=== PATIENT | female | born 1940 | race Caucasian/White ===

== ENCOUNTER 2024-07-07 16:31 | Inpatient (IN) | payer MEDICARE, SELFPAY ==
--- NOTE | ~2024-07-07 | XR_ITS ---
EXAMINATION: XR chest 1V portable Exam Date/Time: 07/12/2024 10:55 SALES OFFICER HISTORY: fluid volume overload Comparison: 07/08/2024. RESULT: Lines, tubes, and devices: None. Lungs and pleura: Mild diffuse reticular opacities. Cardiomediastinal silhouette: Stable. Aortic ectasia. Other: No acute osseous or upper abdominal finding. IMPRESSION: Mild interstitial edema versus senescent change. Reviewed, dictated and finalized at location K. S OFFICER
--- NOTE | ~2024-07-07 | XR_ITS ---
EXAMINATION: XR chest 1V portable DATE: 07/13/2024 10:39 INDICATION: Pneumonia TECHNIQUE: frontal view of the chest was obtained. COMPARISON: Chest radiograph dated 07/12/2024 FINDINGS: The lungs are clear with no focal airspace opacities, pulmonary edema, pleural effusion or pneumothor ax. The cardiomediastinal silhouette is normal. IMPRESSION: 1. No acute cardiopulmonary disease. Reviewed, dictated and finalized at location B. R ROOM MANAGER
--- NOTE | ~2024-07-07 | XR_ITS ---
Left Shoulder Technique: AP and scapular Y views were obtained. Clinical History: Pain Findings: No fracture or dislocation is seen. Osseous alignment is anatomic. Large inferomedial humer al head osteophyte present, with joint space narrowing. AC joint intact. Soft tissues are unremarkabl e. Impression: Advanced glenohumeral joint degenerative change. Reviewed, dictated and finalized at location . SPACE MECHANIC Impression: Advanced glenohumeral joint degenerative change.
--- NOTE | ~2024-07-07 | XR_ITS ---
EXAMINATION: XR chest 1V portable DATE: 07/08/2024 04:51 INDICATION: Weakness TECHNIQUE: frontal view of the chest was obtained. COMPARISON: None FINDINGS: Eventration along the medial right hemidiaphragm. No airspace opacities, pulmonary edema, pleural eff usion or pneumothorax. The cardiomediastinal silhouette is normal. IMPRESSION: 1. No acute cardiopulmonary disease. Reviewed, dictated and finalized at location A. MOLD COATER
--- NOTE | 2024-07-07 16:34 | ECG_ITS ---
Test Date: 2024-07-07 17:04:05 Measurements Intervals [place] Rate: 101 P: 0 [place]: 0 QRS: 17 QRSD: 87 T: 62 QT: 301 QTc: 391 Interpretive Statements ATRIAL FIBRILLATION WITH RAPID VENTRICULAR RESPONSE POSSIBLE ANTERIOR MYOCARDIAL INFARCTION , PROBABLY OLD [30 ms Q WAVE IN V3/V4, OR R < 0.2 mV IN V4] ABNORMAL ECG Electronically Signed On 07-07-2024 17:29:27 MEAT SMOKER by Bert Triplett M.D.
[2024-07-07 17:24] VITALS: BP 163/96; PULSE 80; RESP 18; TEMP 36.6; O2SAT 97
[2024-07-08] VITALS (17 sets, daily range): BP systolic 124–163; BP diastolic 81–103; PULSE 80–117; RESP 13–20; TEMP 36.2–36.7; O2SAT 94–100; BMI 28.4
[2024-07-08 04:00] LABS: Basophils Absolute Auto 0.1 K/mm3 (0.0-0.1); Eosinophils Absolute Auto 0.2 K/mm3 (0-0.3); Eosinophils Percent Auto 2.3 % (0-4.4); Hematocrit 42.9 % (37.0-47.0); Hemoglobin 13.5 g/dL (12.0-15.0); Immature Granulocyte Absolute 0.02 K/mm3 (0.00-0.031); Immature Granulocyte Percent A 0.3 % (0-0.5); Lymphocytes Percent Auto 25.9 % (18.3-44.2); Mean Corpuscular HGB Conc 31.5 g/dl (32-36); Mean Corpuscular Volume 95.3 fl (80-100); Mean Platelet Volume 10.6 fl (7.4-10.4); Monocytes Percent Auto 14.7 % (2.6-8.5); Neutrophils Absolute Auto 3.9 K/mm3 (1.3-6.7); Neutrophils Percent Auto 55.8 % (45.5-73.1); Platelet Count Result 171 k/mm3 (150-375); Red Cell Distribution Width 13.4 % (11.5-14.5)
[2024-07-08 04:11] LABS: Alanine Aminotransferase 17 U/L (6-35); Albumin Level 3.9 g/dL (3.5-5.1); Alkaline Phosphatase 110 U/L (38-126); Anion Gap 4 mmol/L (4-12); Aspartate Amino Transferase 23 U/L (14-36); Bilirubin,Total 1.1 mg/dL (0.2-1.3); Blood Urea Nitrogen 16 mg/dL (7-17); Calcium 8.7 mg/dL (8.4-10.2); Carbon Dioxide 27 mmol/L (22-30); Chloride 107 mmol/L (98-107); Estimated CRCL calculation 54 ml/min; Estimated Glomerular Filt Rate > 60; Glucose 115 mg/dL (65-110); Lipase 87 U/L (23-300); Magnesium 2.2 mg/dL (1.6-2.3); Potassium 3.4 mmol/L (3.4-5.0); Prothrombin Time 13.2 Seconds (11.1-14.7); Sodium 138 mmol/L (137-145)
[2024-07-08 04:22] LABS: NT Pro B Type Natriuretic Pept 1440 pg/mL (19.9-100); Troponin I < 0.012 ng/mL (0.000-0.034)
[2024-07-08 04:36] LABS: Influenza A QL RT-PCR Negative (Negative); Influenza B QL RT-PCR Negative (Negative); RSV RNA, RT-PCR Negative (Negative); SARS-CoV-2 RNA PCR Negative (Negative)
[2024-07-08 05:42] LABS: Add Urine Microscopic? YES; Appearance Urine Cloudy (Clear); Bacteria Urine None Seen /hpf; Bilirubin Urine Negative (Negative); Blood Urine Negative (Negative); Color Urine Yellow (Yellow); Glucose Urine UA Negative (Negative); Ketones Urine Negative (Negative); Leukocyte Esterase Ur 1+ LEU/UL (Negative); Need Manual Microscopic Reviewed; Nitrate Urine Negative (Negative); Non Pathogenic Casts 0-2; Protein Urine Negative (Negative); RBC Urine 0-2 /hpf (0-2); Specific Grav Ur 1.018 (1.001-1.035); Squamous Epithelial Cell Urine Few /hpf (Few); WBC Urine 0-5 /hpf (0-3)
--- NOTE | 2024-07-08 05:42 | ED_ITS ---
HPI - General Adult General Chief complaint: Arrhythmia/Palpitations Stated complaint: RSV, UTI, new onset afib Time Seen by Provider: 07/08/24 03:26 History of Present Illness HPI narrative: The patient 83-year-old female who presents emergency department with chief complaint of atrial fibrillation. Patient recently did a car ride for many hours and went into her primary doctor's office today and was diagnosed with RSV and may have a urinary tract infection. They did an EKG and noticed patient was in atrial fibrillation the patient has no prior history of AFib the patient denies chest pain denies shortness of breath they do report that she has had some increasing peripheral edema with no prior history of congestive heart failure Related Data Allergies Allergy/AdvReac Type Severity Reaction Status Date / Time No Known Allergies Allergy Verified 07/08/24 03:24 Review of Systems 2 Review of Systems: A 10 system review of systems was completed on the patient and is negative except for what is stated in the HPI. Nursing and ancillary documentation was reviewed. Exam 2 Narrative: GENERAL: Well-appearing, well-nourished, and in no acute distress. HEAD: Normocephalic, atraumatic. EYES: PERRLA and EOMI. ENT: Nares clear, no rhinorrhea or epistaxis. Mucous membranes moist. NECK: Supple. CHEST: Clear to auscultation. No respiratory distress. HEART: Irregular rate and rhythm. No murmur heard. Normal peripheral pulses. ABDOMEN: Soft, nontender, nondistended, normal active bowel sounds. EXTREMITIES: Normal range of motion. No edema. SKIN: Warm, dry, no rash. NEURO: No focal deficits. Alert and oriented x3. PSYCH: Normal mood and affect. Course Vital Signs Vital signs: Vital Signs Temperature 36.6 C 07/07/24 17:24 Pulse Rate 80 07/07/24 17:24 Respiratory Rate 18 07/07/24 17:24 Blood Pressure 163/96 H 07/07/24 17:24 Pulse Oximetry 97 07/07/24 17:24 Oxygen Delivery Room Air 07/07/24 17:24 Temperature 36.2 C L 07/08/24 02:40 Pulse Rate 97 07/08/24 03:15 Respiratory Rate 13 07/08/24 03:15 Blood Pressure 163/103 H 07/08/24 03:15 Pulse Oximetry 100 07/08/24 03:15 Oxygen Delivery Room Air 12/28/24 03:15 Medical Decision Making [facility] Narrative Medical decision making narrative: Differential diagnosis includes new onset AFib, CHF, upper respiratory infection, UTI, electrolyte abnormality Laboratory studies were obtained on the patient shows CBC with a white count of 7.0 hemoglobin was 13.5 BNP was slightly elevated at 14 40 troponin was negative urinalysis only showed 1+ leukocyte esterase COVID flu and RSV were negative here EKG showed atrial fibrillation with a rate of 101 Vital Signs Vital Signs: Vital Signs Temperature 36.6 C 07/07/24 17:24 Pulse Rate 80 07/07/24 17:24 Respiratory Rate 18 07/07/24 17:24 Blood Pressure 163/96 H 07/07/24 17:24 Pulse Oximetry 97 07/07/24 17:24 Oxygen Delivery Room Air 07/07/24 17:24 Temperature 36.2 C L 07/08/24 02:40 Pulse Rate 97 07/08/24 03:15 Respiratory Rate 13 07/08/24 03:15 Blood Pressure 163/103 H 07/08/24 03:15 Pulse Oximetry 100 07/08/24 03:15 Oxygen Delivery Room Air 07/08/24 03:15 Lab Data 07/08/24 03:54 07/08/24 03:54 Labs: Lab Results 07/08/24 07/08/24 Range/Units 03:54 05:06 WBC 7.0 (4.5-10.0) K/mm3 RBC 4.50 (4.2-5.4) M/mm3 Hgb 13.5 (12.0-15.0) g/dL Hct 42.9 (37.0-47.0) % MCV 95.3 (80-100) fl MCH 30.0 (26-34) pg MCHC 31.5 L (32-36) g/dl RDW 13.4 (11.5-14.5) % Plt Count 171 (150-375) k/mm3 MPV 10.6 H (7.4-10.4) fl Immature Gran % (Auto) 0.3 (0-0.5) % Neut % (Auto) 55.8 (45.5-73.1) % Lymph % (Auto) 25.9 (18.3-44.2) % [place] % (Auto) 14.7 H (2.6-8.5) % Eos % (Auto) 2.3 (0-4.4) % Baso % (Auto) 1.0 (0.2-1.2) % Lymph # (Auto) 1.80 (0.9-3.2) K/mm3 [place] # (Auto) 1.0 H (0.1-0.6) K/mm3 Eos # (Auto) 0.2 (0-0.3) K/mm3 Baso # (Auto) 0.1 (0.0-0.1) K/mm3 Abs Immat Gran (auto) 0.02 (0.00-0.031) K/mm3 Absolute Neuts (auto) 3.9 (1.3-6.7) K/mm3 Absolute Nucleated RBC 0.000 (0.0-0.012) K/mm3 Nucleated RBC % 0.0 (0.0-0.2) % PT 13.2 (11.1-14.7) Seconds INR 1.0 APTT 21.0 L (22.3-36.8) Seconds Sodium 138 (137-145) mmol/L Potassium 3.4 (3.4-5.0) mmol/L Chloride 107 (98-107) mmol/L Carbon Dioxide 27 (22-30) mmol/L Anion Gap 4 (4-12) mmol/L BUN 16 (7-17) mg/dL Creatinine 0.80 (0.7-1.0) mg/dL Estim Creat Clear Calc 54 ml/min Estimated GFR > 60 (59 - ) Glucose 115 H (65-110) mg/dL Lactic Acid 2.0 (0.7-2.0) mmol/L Calcium 8.7 (8.4-10.2) mg/dL Magnesium 2.2 (1.6-2.3) mg/dL Total Bilirubin 1.1 (0.2-1.3) mg/dL AST 23 (14-36) U/L ALT 17 (6-35) U/L Alkaline Phosphatase 110 (38-126) U/L Troponin I < 0.012 (0.000-0.034) ng/mL NT-Pro-B Natriuret Pep 1440 H (19.9-100) pg/mL Total Protein 6.0 L (6.3-8.2) g/dL Albumin 3.9 (3.5-5.1) g/dL Lipase 87 (23-300) U/L Procalcitonin 0.0 ng/mL Urine Color Yellow (Yellow) Urine Appearance Cloudy H (Clear) Urine pH 6.0 (5.0-9.0) Ur Specific [place] 1.018 (1.001-1.035) Urine Protein Negative (Negative) mg/dL Urine Glucose (UA) Negative (Negative) mg/dL Urine Ketones Negative (Negative) mg/dL Ur Blood (Man) Negative (Negative) Urine Nitrate Negative (Negative) Urine Bilirubin Negative (Negative) Urine Urobilinogen 1.0 (<2.0) mg/dL Add Ur Microanalysis Reviewed Leukocyte Esterase Rfl 1+ H (Negative) HEIDY/UL Urine RBC 0-2 (0-2) /hpf Urine WBC 0-5 (0-3) /hpf Ur Squamous Epith Cells Few (Few) /hpf Urine Bacteria None seen /hpf Urine Casts 0-2 Influenza A (RT-PCR) Negative (Negative) Influenza B (RT-PCR) Negative (Negative) RSV (RT-PCR) Negative (Negative) SARS-CoV-2 RNA (RT-PCR) Negative (Negative) Discharge Plan Discharge Clinical Impression: Atrial fibrillation Patient Disposition: Still a Patient Condition: Stable Patient Language: Frisian Follow-up/Referrals: Dana,MD [place] [Primary Care Provider] - Time of Disposition: 06:33
--- NOTE | 2024-07-08 06:27 | ECG_ITS ---
Test Date: 2024-07-08 06:29:28 Measurements Intervals [place] Rate: 107 P: 0 [place]: 0 QRS: 20 QRSD: 85 T: 70 QT: 386 QTc: 515 Interpretive Statements ATRIAL FIBRILLATION WITH RAPID VENTRICULAR RESPONSE NONSPECIFIC ST & T-WAVE ABNORMALITY ABNORMAL RHYTHM ECG Compared to ECG 07/07/2024 17:04:05 T-wave abnormality now present Myocardial infarct finding no longer present Electronically Signed On 07-08-2024 08:32:25 GRAVEL ROOFER by Bert Triplett M.D.
[2024-07-08 06:52] LABS: Troponin I < 0.012 ng/mL (0.000-0.034)
[2024-07-08] MEDS: dilTIAZem 100 MG/100 ML 100 MG/100 ML BAG IV CONT ×2 (07:50→22:08)
--- NOTE | 2024-07-08 07:57 | PC.NURSE ---
breakfast tray ordered by this RN
--- NOTE | 2024-07-08 08:54 | P.CONCA_ITS ---
Assessment and Plan Assessment and plan (1) Hypertension: Code(s): I10 - Essential (primary) hypertension Status: Acute (2) Systolic murmur at cardiac apex: Code(s): R01.1 - Cardiac murmur, unspecified Status: Acute Plan Recommend Start drip of calcium channel keron diltiazem IV 5 mg per hour drip. If heart rate is less than 50 beats per minute or systolic blood pressure less than 90 mmHg Supplement magnesium to keep magnesium-2.0 or potassium-4.0 unless otherwise contraindicated Recommend anticoagulation with Lovenox full dose. Long-term patient likely will need anticoagulation with NOAC because of CHADS2 score is at least 4 in a patient at this hypertension symptoms of systolic congestive heart failure on examination and by elevated proBNP and patient who is a woman who is older than 75 In addition patient appears to be hyperglycemic that may be additional left risk factor such as diabetes me present If patient does not convert to sinus rhythm transesophageal ECHO with synchronized cardioversion to be done early next week may be beneficial. Adding under medication and doing a transesophageal echo of synchronized cardioversion as outpatient in the future may be an option too Patient will need at least 2 in patient hospital days of stay from cardiology standpoint History of Present Illness History of Present Illness Consult date/time: 07/08/24 08:54 Reason For Visit: Atrial fibrillation, new onset Narrative: Patient is 83-year-old female who was seen by her primary care physician yesterday. Due to worsening shortness of breath cost and fatigue she was sent to emergency room of [facility] for further evaluation. She was confirmed to have atrial fibrillation initially in the primary care physician's office and again he has in the emergency room. Emergency room attending consulted cardiology team for 4 management of patient's atrial fibrillation increased shortness of breath in the presence of of abnormal labs such as elevated proBNP Review of Systems 2 Review of Systems: Patient apparently being fatigued and short of breath for several days and was concerned about that. She expressed symptoms to her physician. She specifically denied focal weakness difficulty or pain swallowing denied any symptoms of CVA or stroke. She denies any chest pain. She notice what her breathing change in his worse comparing to her usual condition in addition she was having recurrent cough it had decreased ability to perform activities of daily living. She could not really tell how much swelling in her legs she recently had a comparing to time in the past Of a 12 review of systems unremarkable PMFSH Comments Patient specifically denied having history of coronary artery disease CVA congestive heart failure cardiomegaly documented. She apparently had remote surgery and thinks she had an echo but does not remember about to be any way abnormal. Meds Home Medications and Allergies Allergies Allergy/AdvReac Type Severity Reaction Status Date / Time No Known Allergies Allergy Verified 07/08/24 03:24 Vital Signs Vital Signs - 24 hr 07/07/24 17:24 07/08/24 02:40 07/08/24 03:15 Temperature 36.6 C 36.2 C L Pulse Rate 80 88 87 Respiratory Rate 18 20 Blood Pressure 163/96 H 149/95 H Pulse Oximetry 97 94 Oxygen Delivery Room Air 07/08/24 03:15 07/08/24 03:15 07/08/24 07:50 Temperature Pulse Rate 97 103 H Respiratory Rate 13 Blood Pressure 163/103 H 140/92 H Pulse Oximetry 100 100 Oxygen Delivery Room Air Room Air 07/08/24 07:52 Temperature Pulse Rate 90 Respiratory Rate 14 Blood Pressure 140/92 H Pulse Oximetry 95 Oxygen Delivery Exam 2 Narrative: Eyes no scleral icterus or edema ENT mild mucosa moist and midline patient missing multiple teeth. She has several crowns. No obvious acute signs of gingivitis. Neck no tracheal deviation no stridor no obvious carotid bruit no significant JVD prominence on patient seen when she is lying at about 30 degree elevation. Mildly decreased breath sounds at bases but no significant wheezing no rales Heart exam irregularly irregular rhythm mild systolic and diastolic murmurs present PMI appears slightly displaced to the left Abdomen soft nondistended nontender. Extremities is mild pretibial edema present bilaterally. Lymphatics no cervical or supraclavicular adenopathy on palpation. Chest wall no obvious scar which just seeing patient does not have a pacemaker defibrillator. Four alert and oriented no focal facial or body weakness speech and gag intact psychiatric mildly anxious but cooperative. Vascular are normal femoral pulses and distal tibialis posterior pulses bilaterally normal radial pulses bilaterally Results Labs and Meds 07/08/24 03:54 07/08/24 03:54 Lab results: Cardiac Enzymes 07/08/24 07/08/24 Range/Units 03:54 06:21 AST 23 (14-36) U/L Troponin I < 0.012 < 0.012 (0.000-0.034) ng/mL Coagulation 07/08/24 Range/Units 03:54 PT 13.2 (11.1-14.7) Seconds APTT 21.0 L (22.3-36.8) Seconds CBC 07/08/24 Range/Units 03:54 WBC 7.0 (4.5-10.0) K/mm3 RBC 4.50 (4.2-5.4) M/mm3 Hgb 13.5 (12.0-15.0) g/dL Hct 42.9 (37.0-47.0) % Plt Count 171 (150-375) k/mm3 Lymph # (Auto) 1.80 (0.9-3.2) K/mm3 [place] # (Auto) 1.0 H (0.1-0.6) K/mm3 Eos # (Auto) 0.2 (0-0.3) K/mm3 Baso # (Auto) 0.1 (0.0-0.1) K/mm3 Comprehensive Metabolic Panel 07/08/24 Range/Units 03:54 Sodium 138 (137-145) mmol/L Potassium 3.4 (3.4-5.0) mmol/L Chloride 107 (98-107) mmol/L Carbon Dioxide 27 (22-30) mmol/L BUN 16 (7-17) mg/dL Creatinine 0.80 (0.7-1.0) mg/dL Glucose 115 H (65-110) mg/dL Calcium 8.7 (8.4-10.2) mg/dL AST 23 (14-36) U/L ALT 17 (6-35) U/L Alkaline Phosphatase 110 (38-126) U/L Total Protein 6.0 L (6.3-8.2) g/dL Albumin 3.9 (3.5-5.1) g/dL Patient Weight 07/08/24 23:59 Weight 88.5 kg EKG Interpretation EKG shows: atrial fibrillation (EKG done on July 07, 2024 5:04 p.m. was atrial fibrillation with rapid ventricular response ventricular rate is 101 QRS duration 87 QT 301 QTC 359 milliseconds) Quality Case was discussed with emergency room physician. I discussed case with patient in the presence of her daughter. They aware but feeble be staying in the hospital Echocardiogram was ordered
--- NOTE | 2024-07-08 09:02 | ADMGEN ---
This patient, Ernestine Salinas, was admitted to IMU Room 210-01. Patient/family oriented to hospital policies and general routines including ID bracelet, bed and alarms, visiting hours, pain management, procedures, bathroom and other care routines, personal items, smoking policy, room service/diet, and visiting hours. Information on how to activate the Rapid Response Team has been discussed. Patient/Family are encouraged to report perceived risks to care and to ask questions if they do not understand what they are told or what they should do.
[2024-07-08] MEDS: FUROSEMIDE INJ 40 MG/4 ML VIAL IV PUSH ×2 (10:37→20:46)
[2024-07-08] MEDS: ENOXAPARIN 100 MG/ML SYRINGE 88 MG SUB-Q ×2 (10:38→20:46)
[2024-07-08] MEDS: POTASSIUM CHLORIDE 20 MEQ ER TABLET 40 MEQ PO (10:46)
[2024-07-08 13:20] LABS: Troponin I < 0.012 ng/mL (0.000-0.034)
--- NOTE | 2024-07-08 17:13 | P.HP_ITS ---
H&P: HPI History of Present Illness Date/Time: 07/08/24 17:13 Chief Complaint: Referred to the ER by her PCP for Afib RVR Narrative: 83-year-old female past medical history of dementia and hyperlipidemia presented to ER by control of atrial fibrillation. Patient is she to her primary care physician with shortness of right patient was evaluated and noted to be in atrial fibrillation with rapid ventricular response and referred to the ER for acute care. Otherwise she denies any chest pain vomiting diarrhea pain and dysuria no focal symptoms. Patient was not oriented x2 was able to tell the year and not month Evaluation notable for temperature 97.8?, pulse rate 103, respiratory is 18 blood pressure 163/86 saturating 97% on room air. Labs notable for a T proBNP 14 40, potassium 3.4, magnesium 2.2. Chest x-ray no acute changes. EKG showed atrial fibrillation with rapid ventricular response with rate of 101. Review of Systems Review of Systems: All other systems reviewed and negative except as noted in the history above. [facility] Family History Family History (Updated 07/08/24 @ 10:09 by Heidi Buckley RN) Sibling Breast cancer Alzheimer disease Mother Alzheimer disease Father Emphysema lung Social History Social History Years smoked: 10 Smoking status: Former smoker Tobacco type: cigarettes Smoking end date: 06/11/83 Alcohol intake: current Drinks per week: 1 Substance use: never Substance use type: does not use Do You Feel Safe in your Home?: Yes Lack of Transportation: No Lack of Food: Never True Current Housing: I Have Housing Concerned About Future Housing: No Difficulty Paying Gas/Electric Bills: No Difficulty Paying for Meds: No Currently Unemployed: No Education: Bachelor's Degree Difficulty w/ Childcare or Family Care: No Spiritual care concerns: No Meds Home Medications and Allergies Home Medications ?Medication ?Instructions ?Recorded ?Confirmed ?Type acetaminophen 325 mg tablet 325 mg PO DAILY 07/08/24 07/08/24 History aspirin 81 mg tablet,delayed 81 mg PO DAILY 07/08/24 07/08/24 History release atorvastatin 40 mg tablet 40 mg PO DAILY 07/08/24 07/08/24 History brexpiprazole 2 mg tablet (Rexulti) 2 mg PO DAILY 07/08/24 07/08/24 History cholecalciferol (vitamin D3) 25 2,000 unit PO DAILY 07/08/24 07/08/24 History mcg (1,000 unit) tablet donepezil 10 mg tablet 10 mg PO DAILY 07/08/24 07/08/24 History duloxetine 60 mg capsule,delayed 60 mg PO DAILY 07/08/24 07/08/24 History release gabapentin 300 mg capsule 300 mg PO Q12H 07/08/24 07/08/24 History memantine 10 mg tablet 10 mg PO BID 07/08/24 07/08/24 History raloxifene 60 mg tablet 60 mg PO DAILY 07/08/24 07/08/24 History Allergies Allergy/AdvReac Type Severity Reaction Status Date / Time No Known Allergies Allergy Verified 07/08/24 03:24 Vital Signs Vital Signs - 24 hr 07/07/24 17:24 07/08/24 02:40 07/08/24 03:15 Temperature 97.8 F 97.2 F L Pulse Rate 80 88 87 Respiratory Rate 18 20 Blood Pressure 163/96 H 149/95 H Pulse Oximetry 97 94 Oxygen Delivery Room Air 07/08/24 03:15 07/08/24 03:15 07/08/24 07:50 Temperature Pulse Rate 97 103 H Respiratory Rate 13 Blood Pressure 163/103 H 140/92 H Pulse Oximetry 100 100 Oxygen Delivery Room Air Room Air 07/08/24 07:52 07/08/24 08:55 07/08/24 10:00 Temperature 97.7 F Pulse Rate 90 103 H 88 Respiratory Rate 14 16 Blood Pressure 140/92 H 149/85 H Pulse Oximetry 95 98 Oxygen Delivery 07/08/24 11:15 07/08/24 12:00 07/08/24 12:00 Temperature 97.5 F L Pulse Rate 101 H 117 H Respiratory Rate 20 Blood Pressure 146/92 H Pulse Oximetry 98 Oxygen Delivery Room Air 07/08/24 14:00 07/08/24 15:57 07/08/24 16:00 Temperature 98.1 F Pulse Rate 89 93 109 H Respiratory Rate 18 Blood Pressure 127/81 Pulse Oximetry 98 Oxygen Delivery 07/08/24 16:00 Temperature Pulse Rate Respiratory Rate Blood Pressure Pulse Oximetry Oxygen Delivery Room Air Exam Narrative: General: alert and comfortable Eyes: EOMI, PERRLA ENNT External ears normal, Neck is supple, no masses, Respiratory systems: Clear to auscultation Cardiovascular S1, S2, normal rhythm, no murmur, rub, or gallop; no thrill or palpable murmurs on palpation. Gastrointestinal: soft, non-tender, and non-distended abdomen with no masses; BS present Skin: no rash, lesions, ulcerations, subcutaneous nodules or induration Musculoskeletal: no abnormality and no tenderness, normal ROM Neurologic: Alert and oriented x2, non focal Mental Status Exam: normal affect H&P: Results Labs Labs: Short CBC 07/08/24 Range/Units 03:54 WBC 7.0 (4.5-10.0) K/mm3 Hgb 13.5 (12.0-15.0) g/dL Hct 42.9 (37.0-47.0) % Plt Count 171 (150-375) k/mm3 BMP 07/08/24 03:54 Sodium 138 Potassium 3.4 Chloride 107 Carbon Dioxide 27 BUN 16 Creatinine 0.80 Glucose 115 H Calcium 8.7 Cardiac Enzymes 07/08/24 07/08/24 07/08/24 Range/Units 03:54 06:21 12:46 Troponin I < 0.012 < 0.012 < 0.012 (0.000-0.034) ng/mL Liver Function 07/08/24 Range/Units 03:54 Total Bilirubin 1.1 (0.2-1.3) mg/dL AST 23 (14-36) U/L ALT 17 (6-35) U/L Alkaline Phosphatase 110 (38-126) U/L Albumin 3.9 (3.5-5.1) g/dL Urine 07/08/24 Range/Units 05:06 Urine Color Yellow (Yellow) Urine Appearance Cloudy H (Clear) Urine pH 6.0 (5.0-9.0) Ur Specific [place] 1.018 (1.001-1.035) Urine Protein Negative (Negative) mg/dL Urine Glucose (UA) Negative (Negative) mg/dL Assessment and Plan Assessment and plan (1) Atrial fibrillation: Code(s): I48.91 - Unspecified atrial fibrillation Status: Acute Plan Afib with RVR Continue Cardizem infusion and full dose lovenox [id number] score 4 ECHO, and TSH reflex monitor on IMU Dementia A and O x2 appears to be at baseline Continue home meds HLD continue home meds DVT prophylaxis on Full dose lovenox FUll code POA Daughter January Hospitalist MIPS Advance Care Plan I have confirmed that the patient's Advanced Care Plan is present, code status is documented, or surrogate decision maker is listed in patient medical record.: Yes Medication Reconciliation I have utilized all available resources to obtain, update and review the pa ajnts current medications (includes all prescriptions, OTC, herbals, cannabis, and nutritional supplements).: Yes
[2024-07-08] MEDS: SACUBITRIL/VALSARTAN 24-26 MG TABLET 1 TAB PO (20:46)
[2024-07-08] MEDS: BENZONATATE 100 MG CAPSULE 200 MG PO (20:46)
[2024-07-09] VITALS (21 sets, daily range): BP systolic 96–132; BP diastolic 56–109; PULSE 69–106; RESP 12–20; TEMP 36.3–37.1; O2SAT 95–97
[2024-07-09 05:07] LABS: Basophils Percent Auto 0.6 % (0.2-1.2); Eosinophils Absolute Auto 0.1 K/mm3 (0-0.3); Eosinophils Percent Auto 2.1 % (0-4.4); Hematocrit 43.2 % (37.0-47.0); Immature Granulocyte Absolute 0.02 K/mm3 (0.00-0.031); Immature Granulocyte Percent A 0.3 % (0-0.5); Lymphocytes Absolute Auto 1.47 K/mm3 (0.9-3.2); Lymphocytes Percent Auto 23.4 % (18.3-44.2); Mean Corpuscular HGB Conc 32.4 g/dl (32-36); Mean Corpuscular Hemoglobin 30.5 pg (26-34); Mean Corpuscular Volume 94.1 fl (80-100); Mean Platelet Volume 10.5 fl (7.4-10.4); Monocytes Absolute Auto 0.7 K/mm3 (0.1-0.6); Monocytes Percent Auto 11.1 % (2.6-8.5); Neutrophils Absolute Auto 3.9 K/mm3 (1.3-6.7); Neutrophils Percent Auto 62.5 % (45.5-73.1); Platelet Count Result 170 k/mm3 (150-375); Red Blood Count 4.59 M/mm3 (4.2-5.4); Red Cell Distribution Width 13.3 % (11.5-14.5); White Blood Count 6.3 K/mm3 (4.5-10.0)
[2024-07-09 05:23] LABS: Alanine Aminotransferase 17 U/L (6-35); Albumin Level 3.6 g/dL (3.5-5.1); Alkaline Phosphatase 107 U/L (38-126); Anion Gap 1 mmol/L (4-12); Aspartate Amino Transferase 23 U/L (14-36); Bilirubin,Total 1.3 mg/dL (0.2-1.3); Blood Urea Nitrogen 16 mg/dL (7-17); Calcium 8.4 mg/dL (8.4-10.2); Carbon Dioxide 30 mmol/L (22-30); Chloride 108 mmol/L (98-107); Estimated CRCL calculation 60 ml/min; Estimated Glomerular Filt Rate > 60; Glucose 136 mg/dL (65-110); Magnesium 1.9 mg/dL (1.6-2.3); Potassium 3.2 mmol/L (3.4-5.0); Sodium 139 mmol/L (137-145)
--- NOTE | 2024-07-09 07:59 | PM.PNCARD ---
Progress Note: A&P Assessment and Plan (1) Systolic murmur at cardiac apex: Code(s): R01.1 - Cardiac murmur, unspecified Status: Acute (2) Hypertension: Code(s): I10 - Essential (primary) hypertension Status: Acute (3) Atrial fibrillation: Code(s): I48.91 - Unspecified atrial fibrillation Status: Acute Plan stop lovenox . start eliquis 5 mg PO bid supplement KCL 40 mEq was ordered magnesium oxide 400 mg PO bid add amiodarone 200 mg PO bid ECHO ordered cardioversion in 4 to 6 weeks after patient been anticoagulated Possible dc tomorrow Subjective Date/time seen: 07/09/24 07:59 Review of Systems Review of Systems: All other systems reviewed and negative except as noted in the history above. Exam Narrative: General: alert and comfortable Eyes: EOMI, PERRLA ENNT External ears normal, Neck is supple, no masses, Respiratory systems: Clear to auscultation Cardiovascular S1, S2, normal rhythm, no murmur, rub, or gallop; no thrill or palpable murmurs on palpation. Gastrointestinal: soft, non-tender, and non-distended abdomen with no masses; BS present Skin: no rash, lesions, ulcerations, subcutaneous nodules or induration Musculoskeletal: no abnormality and no tenderness, normal ROM Neurologic: Alert and oriented x2, non focal Mental Status Exam: normal affect Objective Data Vital Signs Vital Signs: Vital Signs - 24 hr 07/08/24 08:55 07/08/24 10:00 07/08/24 11:15 Temperature 36.5 C Pulse Rate 103 H 88 Respiratory Rate 16 Blood Pressure 149/85 H Pulse Oximetry 98 Oxygen Delivery Room Air 07/08/24 12:00 07/08/24 12:00 07/08/24 14:00 Temperature 36.4 C L Pulse Rate 101 H 117 H 89 Respiratory Rate 20 Blood Pressure 146/92 H Pulse Oximetry 98 Oxygen Delivery 07/08/24 15:57 07/08/24 16:00 07/08/24 16:00 Temperature 36.7 C Pulse Rate 93 109 H Respiratory Rate 18 Blood Pressure 127/81 Pulse Oximetry 98 Oxygen Delivery Room Air 07/08/24 18:00 07/08/24 20:00 07/08/24 20:00 Temperature Pulse Rate 82 83 Respiratory Rate Blood Pressure Pulse Oximetry Oxygen Delivery Room Air 07/08/24 20:04 07/08/24 22:00 07/08/24 22:00 Temperature 36.7 C Pulse Rate 82 80 92 Respiratory Rate 20 Blood Pressure 141/85 H 133/93 H Pulse Oximetry 95 Oxygen Delivery 07/08/24 22:08 07/08/24 22:09 07/08/24 23:32 Temperature 36.7 C Pulse Rate 80 80 87 Respiratory Rate 18 Blood Pressure 133/93 H 133/93 H 124/82 Pulse Oximetry 95 Oxygen Delivery 07/09/24 00:00 07/09/24 00:00 07/09/24 00:00 Temperature Pulse Rate 90 90 Respiratory Rate Blood Pressure 124/82 Pulse Oximetry Oxygen Delivery Room Air 07/09/24 01:43 07/09/24 02:00 07/09/24 02:00 Temperature 36.6 C Pulse Rate 74 84 74 Respiratory Rate 18 Blood Pressure 118/72 118/72 Pulse Oximetry 95 Oxygen Delivery 07/09/24 04:00 07/09/24 04:00 07/09/24 04:00 Temperature Pulse Rate 81 82 Respiratory Rate Blood Pressure 119/76 Pulse Oximetry Oxygen Delivery Room Air 07/09/24 04:22 07/09/24 06:00 07/09/24 06:00 Temperature 36.8 C Pulse Rate 82 71 82 Respiratory Rate 18 Blood Pressure 119/76 120/68 Pulse Oximetry 96 Oxygen Delivery 07/09/24 06:06 Temperature 36.7 C Pulse Rate 82 Respiratory Rate 20 Blood Pressure 120/68 Pulse Oximetry 96 Oxygen Delivery Intake/Output Intake/Output: Intake & Output 07/06/24 07/07/24 07/08/24 07/09/24 23:59 23:59 23:59 23:59 Intake Total 551.6 539.3 Output Total 700 2300 Balance -148.4 -1760.7 Meds/Results Medications: Active Medications Generic Name Dose Route Start Last Admin Trade Name Freq PRN Reason Stop Dose Admin Benzonatate 200 mg 07/08/24 20:40 07/08/24 20:46 Benzonatate 100 Mg Capsule PO 200 mg TID HASEEB Administration Enoxaparin Sodium 88 mg 07/08/24 09:00 07/08/24 20:46 Enoxaparin 100 Mg/Ml Syringe SUB-Q 88 mg Q12HR HASEEB Administration Furosemide 40 mg 07/08/24 09:00 07/08/24 20:46 Furosemide Inj 40 Mg/4 Ml Vial IV PUSH 40 mg Q12HR HASEEB Administration Diltiazem HCl 100 mg in 100 mls @ 5 mls/hr 07/08/24 21:00 07/09/24 06:00 Cardizem 100 Mg/100 Ml IV CONT 5 mg/hr .Q20H HASEEB 5 mls/hr Infusion 5 MG/HR Perflutren Lipid Microsphere 0 ml 07/08/24 06:34 Perflutren Lipid Microspheres 1.5 Ml Vial Diluted To 10 Ml Total Volume IV PUSH 07/11/24 06:35 ONCE PRN adequate visualization Protocol Sacubitril/Valsartan 1 tab 07/08/24 21:00 07/08/24 20:46 Sacubitril/Valsartan 24-26 Mg Tablet PO 1 tab Q12HR HASEEB Administration Radiology Results: ITS Impressions Chest X-Ray 07/08/24 12:48 IMPRESSION: 1. No acute cardiopulmonary disease. Labs Labs: Laboratory Results - last 24 hr 07/08/24 07/08/24 07/09/24 06:21 12:46 04:54 WBC 6.3 RBC 4.59 Hgb 14.0 Hct 43.2 MCV 94.1 MCH 30.5 MCHC 32.4 RDW 13.3 Plt Count 170 MPV 10.5 H Immature Gran % (Auto) 0.3 Neut % (Auto) 62.5 Lymph % (Auto) 23.4 [place] % (Auto) 11.1 H Eos % (Auto) 2.1 Baso % (Auto) 0.6 Lymph # (Auto) 1.47 [place] # (Auto) 0.7 H Eos # (Auto) 0.1 Baso # (Auto) 0.0 Abs Immat Gran (auto) 0.02 Absolute Neuts (auto) 3.9 Absolute Nucleated RBC 0.000 Nucleated RBC % 0.0 Sodium 139 Potassium 3.2 L Chloride 108 H Carbon Dioxide 30 Anion Gap 1 L BUN 16 Creatinine 0.80 Estim Creat Clear Calc 60 Estimated GFR > 60 Glucose 136 H Calcium 8.4 Magnesium 2.0 1.9 Total Bilirubin 1.3 AST 23 ALT 17 Alkaline Phosphatase 107 Troponin I < 0.012 Total Protein 6.0 L Albumin 3.6 TSH 2.290
--- NOTE | 2024-07-09 08:01 | ECG_ITS ---
Test Date: 2024-07-09 09:01:49 Measurements Intervals [place] Rate: 78 P: 0 AR: 0 QRS: 10 QRSD: 96 T: 120 QT: 341 QTc: 390 Interpretive Statements ATRIAL FIBRILLATION NONSPECIFIC ST & T-WAVE ABNORMALITY ABNORMAL ECG Compared to ECG 07/08/2024 06:29:28 No significant changes Electronically Signed On 07-09-2024 09:05:35 JOURNAL CLERK by Bert Triplett M.D.
[2024-07-09] MEDS: FUROSEMIDE INJ 40 MG/4 ML VIAL IV PUSH ×2 (09:23→21:25)
[2024-07-09] MEDS: APIXABAN 5 MG TABLET PO ×2 (09:25→21:25)
[2024-07-09] MEDS: AMIODARONE HCL 200 MG TABLET PO ×2 (09:25→16:44)
[2024-07-09] MEDS: BENZONATATE 100 MG CAPSULE 200 MG PO ×3 (09:25→16:44)
[2024-07-09] MEDS: SACUBITRIL/VALSARTAN 24-26 MG TABLET 1 TAB PO ×2 (09:26→21:25)
[2024-07-09] MEDS: MAGNESIUM OXIDE 400 MG TABLET PO ×2 (09:27→16:44)
[2024-07-09] MEDS: POTASSIUM CHLORIDE 20 MEQ PACKET (FOR LIQUID) 40 MEQ PO (12:44)
--- NOTE | 2024-07-09 12:53 | P.PNIM_ITS ---
Progress Note: A&P Assessment and Plan (1) Atrial fibrillation: Code(s): I48.91 - Unspecified atrial fibrillation Status: Acute Plan Afib with RVR Titrate off Cardizem Continue Amiodarone 200mg bid, Eliquis 5mg bid [id number] score 4 ECHO pending, and TSH wnl Cardiology following Dementia A and O x2 appears to be at baseline Continue home meds HLD continue home meds DVT prophylaxis on Eliquis FUll code LUISA Daughter January Subjective Date/time seen: 07/09/24 12:53 Interval history: Patient comfortable at bedside cardiology eval noted Review of Systems Review of Systems: All other systems reviewed and negative except as noted in the history above. Exam Narrative: General: alert and comfortable Eyes: EOMI, PERRLA ENNT External ears normal, Neck is supple, no masses, Respiratory systems: Clear to auscultation Cardiovascular S1, S2, normal rhythm, no murmur, rub, or gallop; no thrill or palpable murmurs on palpation. Gastrointestinal: soft, non-tender, and non-distended abdomen with no masses; BS present Skin: no rash, lesions, ulcerations, subcutaneous nodules or induration Musculoskeletal: no abnormality and no tenderness, normal ROM Neurologic: Alert and oriented x2, non focal Mental Status Exam: normal affect Objective Data Vital Signs Vital Signs: Vital Signs - 24 hr 07/08/24 14:00 07/08/24 15:57 07/08/24 16:00 Temperature 98.1 F Pulse Rate 89 93 109 H Respiratory Rate 18 Blood Pressure 127/81 Pulse Oximetry 98 Oxygen Delivery 07/08/24 16:00 07/08/24 18:00 07/08/24 20:00 Temperature Pulse Rate 82 83 Respiratory Rate Blood Pressure Pulse Oximetry Oxygen Delivery Room Air 07/08/24 20:00 07/08/24 20:04 07/08/24 22:00 Temperature 98.1 F Pulse Rate 82 80 Respiratory Rate 20 Blood Pressure 141/85 H 133/93 H Pulse Oximetry 95 Oxygen Delivery Room Air 07/08/24 22:00 07/08/24 22:08 07/08/24 22:09 Temperature Pulse Rate 92 80 80 Respiratory Rate Blood Pressure 133/93 H 133/93 H Pulse Oximetry Oxygen Delivery 07/08/24 23:32 07/09/24 00:00 07/09/24 00:00 Temperature 98.1 F Pulse Rate 87 90 90 Respiratory Rate 18 Blood Pressure 124/82 124/82 Pulse Oximetry 95 Oxygen Delivery 07/09/24 00:00 07/09/24 01:43 07/09/24 02:00 Temperature 98 F Pulse Rate 74 84 Respiratory Rate 18 Blood Pressure 118/72 Pulse Oximetry 95 Oxygen Delivery Room Air 07/09/24 02:00 07/09/24 04:00 07/09/24 04:00 Temperature Pulse Rate 74 81 Respiratory Rate Blood Pressure 118/72 Pulse Oximetry Oxygen Delivery Room Air 07/09/24 04:00 07/09/24 04:22 07/09/24 06:00 Temperature 98.2 F Pulse Rate 82 82 71 Respiratory Rate 18 Blood Pressure 119/76 119/76 Pulse Oximetry 96 Oxygen Delivery 07/09/24 06:00 07/09/24 06:06 07/09/24 09:25 Temperature 98.1 F Pulse Rate 82 82 83 Respiratory Rate 20 Blood Pressure 120/68 120/68 Pulse Oximetry 96 Oxygen Delivery 07/09/24 09:26 Temperature 98.0 F Pulse Rate 69 Respiratory Rate 14 Blood Pressure 96/64 L Pulse Oximetry 96 Oxygen Delivery Intake/Output Intake/Output: Intake & Output 07/06/24 07/07/24 07/08/24 07/09/24 23:59 23:59 23:59 23:59 Intake Total 551.6 539.3 Output Total 700 2300 Balance -148.4 -1760.7 Meds/Results Medications: Active Medications Generic Name Dose Route Start Last Admin Trade Name Freq PRN Reason Stop Dose Admin Amiodarone HCl 200 mg 07/09/24 09:00 07/09/24 09:25 Amiodarone Hcl 200 Mg Tablet PO 200 mg BID HASEEB Administration Apixaban 5 mg 07/09/24 09:00 07/09/24 09:25 Apixaban 5 Mg Tablet PO 5 mg Q12HR HASEEB Administration Benzonatate 200 mg 07/08/24 20:40 07/09/24 12:44 Benzonatate 100 Mg Capsule PO 200 mg TID HASEEB Administration Furosemide 40 mg 07/08/24 09:00 07/09/24 09:23 Furosemide Inj 40 Mg/4 Ml Vial IV PUSH 40 mg Q12HR HASEEB Administration Diltiazem HCl 100 mg in 100 mls @ 5 mls/hr 07/08/24 21:00 07/09/24 06:00 Cardizem 100 Mg/100 Ml IV CONT 5 mg/hr .Q20H HASEEB 5 mls/hr Infusion 5 MG/HR Magnesium Oxide 400 mg 07/09/24 09:00 07/09/24 09:27 Magnesium Oxide 400 Mg Tablet PO 400 mg BID HASEEB Administration Perflutren Lipid Microsphere 0 ml 07/08/24 06:34 Perflutren Lipid Microspheres 1.5 Ml Vial Diluted To 10 Ml Total Volume IV PUSH 07/11/24 06:35 ONCE PRN adequate visualization Protocol Sacubitril/Valsartan 1 tab 07/08/24 21:00 07/09/24 09:26 Sacubitril/Valsartan 24-26 Mg Tablet PO 1 tab Q12HR HASEEB Administration Radiology Results: ITS Impressions Chest X-Ray 07/08/24 12:48 IMPRESSION: 1. No acute cardiopulmonary disease. Labs Labs: Laboratory Results - last 24 hr 07/08/24 07/09/24 12:46 04:54 WBC 6.3 RBC 4.59 Hgb 14.0 Hct 43.2 MCV 94.1 MCH 30.5 MCHC 32.4 RDW 13.3 Plt Count 170 MPV 10.5 H Immature Gran % (Auto) 0.3 Neut % (Auto) 62.5 Lymph % (Auto) 23.4 [place] % (Auto) 11.1 H Eos % (Auto) 2.1 Baso % (Auto) 0.6 Lymph # (Auto) 1.47 [place] # (Auto) 0.7 H Eos # (Auto) 0.1 Baso # (Auto) 0.0 Abs Immat Gran (auto) 0.02 Absolute Neuts (auto) 3.9 Absolute Nucleated RBC 0.000 Nucleated RBC % 0.0 Sodium 139 Potassium 3.2 L Chloride 108 H Carbon Dioxide 30 Anion Gap 1 L BUN 16 Creatinine 0.80 Estim Creat Clear Calc 60 Estimated GFR > 60 Glucose 136 H Calcium 8.4 Magnesium 1.9 Total Bilirubin 1.3 AST 23 ALT 17 Alkaline Phosphatase 107 Troponin I < 0.012 Total Protein 6.0 L Albumin 3.6 TSH 2.290
[2024-07-10] VITALS (20 sets, daily range): BP systolic 104–124; BP diastolic 71–85; PULSE 68–118; RESP 16–20; TEMP 36.4–36.7; O2SAT 93–98
[2024-07-10 04:54] LABS: Basophils Percent Auto 0.6 % (0.2-1.2); Eosinophils Absolute Auto 0.2 K/mm3 (0-0.3); Eosinophils Percent Auto 2.9 % (0-4.4); Hematocrit 43.9 % (37.0-47.0); Hemoglobin 14.1 g/dL (12.0-15.0); Immature Granulocyte Absolute 0.02 K/mm3 (0.00-0.031); Immature Granulocyte Percent A 0.3 % (0-0.5); Lymphocytes Absolute Auto 1.84 K/mm3 (0.9-3.2); Lymphocytes Percent Auto 29.3 % (18.3-44.2); Mean Corpuscular HGB Conc 32.1 g/dl (32-36); Mean Corpuscular Hemoglobin 29.8 pg (26-34); Mean Corpuscular Volume 92.8 fl (80-100); Mean Platelet Volume 10.6 fl (7.4-10.4); Monocytes Absolute Auto 0.7 K/mm3 (0.1-0.6); Monocytes Percent Auto 11.3 % (2.6-8.5); Neutrophils Absolute Auto 3.5 K/mm3 (1.3-6.7); Neutrophils Percent Auto 55.6 % (45.5-73.1); Platelet Count Result 193 k/mm3 (150-375); Red Blood Count 4.73 M/mm3 (4.2-5.4); Red Cell Distribution Width 13.2 % (11.5-14.5); White Blood Count 6.3 K/mm3 (4.5-10.0)
[2024-07-10 05:13] LABS: Alanine Aminotransferase 16 U/L (6-35); Albumin Level 3.6 g/dL (3.5-5.1); Alkaline Phosphatase 105 U/L (38-126); Anion Gap 2 mmol/L (4-12); Aspartate Amino Transferase 18 U/L (14-36); Bilirubin,Total 1.2 mg/dL (0.2-1.3); Blood Urea Nitrogen 19 mg/dL (7-17); Calcium 8.4 mg/dL (8.4-10.2); Carbon Dioxide 30 mmol/L (22-30); Chloride 107 mmol/L (98-107); Estimated CRCL calculation 54 ml/min; Estimated Glomerular Filt Rate 60; Glucose 135 mg/dL (65-110); Magnesium 2.1 mg/dL (1.6-2.3); Potassium 3.4 mmol/L (3.4-5.0); Sodium 139 mmol/L (137-145)
--- NOTE | 2024-07-10 06:00 | ECHO_ITS ---
Patient Info Name: Ernestine Salinas Age: 83 years : 1940 Gender: Female Ht: 71 in Wt: 203 lbs BSA: 2.17 m2 HR: 88 bpm BP: 115 / 72 mmHg Technical Quality: Poor Exam Date: 07/10/2024 2:40 PM Exam Location: Echo Lab Patient Status: Inpatient Admit Date: 07/09/2024 Staff Ordering Physician: Norm Saunders MD Supervisor [facility]: Mikhail Wilkerson RDCS Attending Provider: Jorge Luis Meza MD Referring Physician: Chip LORD; Exam Type: CA echo dop color flow w con Study Info Indications - NEW ONSET AFIB Complete two-dimensional, color flow and Doppler transthoracic echocardiogram is performed with contrast to opacify the left ventricle and to improve the deliniation of the left ventricle endocardial borders. Contrast/Agitated Saline Contrast/Ag. Saline: Definity Amount: 2.00 ml Existing IV Access: Yes Reason for Poor Study: poor echocardiographic windows Summary 1. Left ventricular chamber dimension is mildly enlarged. 2. Left ventricular systolic function is normal, estimated at 50-55%. 3. There is mildly increased left ventricular wall thickness. 4. The left ventricular diastolic function is abnormal. 5. Left atrial chamber dimension is mildly enlarged. 6. There is trace mitral valve regurgitation. Left Ventricle Left ventricular chamber dimension is mildly enlarged. Left ventricular systolic function is normal, estimated at 50-55%. There is mildly increased left ventricular wall thickness. Left ventricular septal wall motion is normal. The left ventricular diastolic function is abnormal. Right Ventricle Right ventricular chamber dimension is normal. Right ventricular systolic function is normal. Left Atria Left atrial chamber dimension is mildly enlarged. Right Atria Right atrial chamber dimension is normal. Atrial Septum Intact interatrial septum visualized by color flow imaging. Aortic Valve The aortic valve is trileaflet. There is no aortic valve sclerosis. There is no aortic valve stenosis. There is no aortic valve regurgitation. Pulmonic Valve The pulmonic valve is normal. There is no pulmonic valve stenosis. There is no pulmonic regurgitation. Mitral Valve The mitral valve has normal leaflets. There is no mitral valve stenosis. There is trace mitral valve regurgitation. Tricuspid Valve The tricuspid valve leaflets are normal. There is no significant tricuspid valve stenosis. There is no tricuspid valve regurgitation. Pericardium/Pleural The pericardium appears normal. There is no pericardial effusion. Inferior Vena Cava Normal inferior vena cava with >50% collapse upon inspiration consistent with Empty right atrial pressure, 10 mmHg. Aorta The aortic root size at the sinus of Valsalva is normal. The prox ascending aorta size is normal. Left Ventricular Outflow Tract Name Value Normal LVOT 2D LVOT Diameter 2.13 cm LVOT Doppler LVOT Peak Velocity 99.59 cm/s LVOT Peak Gradient 4 mmHg LVOT Mean Gradient 2 mmHg LVOT VTI 13.55 cm LVOT VTI/AV VTI Ratio 0.72 LVOT Stroke Volume 48.33 ml LVOT CO 10.26 l/min LVOT CI 4.74 L/min/m2 Pulmonic Valve Name Value Normal RVOT Doppler RVOT Peak Gradient 4 mmHg PV Doppler PV Peak Velocity 101.83 cm/s PV Peak Gradient 4 mmHg Mitral Valve Name Value Normal MV Doppler MV Peak Gradient 3 mmHg MV Mean Gradient 1 mmHg MV Decel [place] 408.48 cm/s2 MV PHT 0 s MV Area (PHT) 4.13 cm2 4.00-5.00 MV Area (Cont Eq VTI) 2.11 cm2 MV Diastolic Function MV E Peak Velocity 74.99 cm/s MV Decel Time 0 s MV Annular TDI MV Septal e' Velocity 6.37 cm/s >=8.00 MV E/e' (Septal) 11.77 <=8.00 MV Lateral e' Velocity 8.03 cm/s >=10.00 MV E/e' (Lateral) 9.33 <=8.00 MV e' Average 7.20 MV E/e' (Average) 10.55 Tricuspid Valve Name Value Normal Estimated PAP/RSVP RA Pressure 10 mmHg <=5 TV Annular TDI TV Lateral [place] s' Velocity 20.67 cm/s 9.50-18.70 Aorta Name Value Normal Ascending Aorta Ao Root Diameter (MM) 3.41 cm Ao Root Diam Index (MM) 1.57 cm/m2 Ao Sinotub [place] Diameter 2.81 cm 2.30-2.90 Aortic Valve Name Value Normal AV Doppler AV Peak Velocity 149.09 cm/s AV Peak Gradient 4 mmHg AV Mean Gradient 3 mmHg AV VTI 18.81 cm AV Area (Cont Eq VTI) 2.57 cm2 >=3.00 AV Area (Cont Eq Rohan) 2.38 cm2 AV V1/V2 Ratio 0.67 AV Regurgitation 2D LVOT Area 3.57 cm2 Ventricles Name Value Normal LV Dimensions 2D/MM IVS Diastolic Thickness (2D) 1.25 cm 0.60-1.00 LVID Diastole (2D) 3.51 cm 3.80-5.20 LVIW Diastolic Thickness (2D) 1.94 cm 0.60-0.90 LVID Systole (2D) 2.83 cm 2.20-3.50 LVOT Diameter 2.13 cm LV Mass (2D Cubed) 214.93 g 67.00-162.00 LV Mass Index (2D Cubed) 0.01 g/cm2 0.00-0.01 Relative Wall Thickness (2D) 1.11 LV Fractional Shortening/Ejection Fraction 2D/MM LV Fractional Shortening (2D) 23 % 27-45 LV EF (2D Teicholz) 46 % 54-74 LV Diastolic Volume (4C MOD) 74.17 ml LV EF (4C MOD) 52 % LV Diastolic Volume (2C MOD) 47.30 ml LV EF (2C MOD) 24 % LV Diastolic Volume (BP MOD) 60.38 ml 46.00-106.00 LV Diastolic Volume Index (BP MOD) 0.03 l/m2 0.03-0.06 LV Systolic Volume (BP MOD) 35.76 ml 14.00-42.00 LV Systolic Volume Index (BP MOD) 0.02 l/m2 0.01-0.02 LV EF (BP MOD) 41 % 54-74 LV Diastolic Length (4C) 6.97 cm LV Systolic Length (4C) 6.37 cm LV Stroke Volume (4C MOD) 38.39 ml Atria Name Value Normal LA Dimensions LA Dimension (MM) 6.16 cm 2.70-3.80 LA Volume (4C A-L) 88.05 ml LA Volume (BP A-L) 105.81 ml RA Dimensions RA Area (4C) 27.69 cm2 <=18.00 Report Signatures
[2024-07-10] MEDS: AMIODARONE HCL 200 MG TABLET PO ×2 (08:43→16:34)
[2024-07-10] MEDS: BENZONATATE 100 MG CAPSULE 200 MG PO ×3 (08:43→16:35)
[2024-07-10] MEDS: APIXABAN 5 MG TABLET PO ×2 (08:43→20:18)
[2024-07-10] MEDS: SACUBITRIL/VALSARTAN 24-26 MG TABLET 1 TAB PO ×2 (08:44→20:18)
[2024-07-10] MEDS: FUROSEMIDE INJ 40 MG/4 ML VIAL IV PUSH ×2 (08:44→20:19)
[2024-07-10] MEDS: MAGNESIUM OXIDE 400 MG TABLET PO ×2 (08:44→16:35)
--- NOTE | 2024-07-10 12:04 | PC.NURSE ---
Pt complaining of Left shoulder pain ,described as arthritic and worsens with activity. Notified Devante who gave order for tylenol 650 PO q4h PRN. order read back and verified.
[2024-07-10] MEDS: ACETAMINOPHEN 325 MG TABLET 650 MG PO (12:23)
--- NOTE | 2024-07-10 13:06 | PC.NURSE ---
Notified Dr George of the patients elevated HR. Afib in 130-140's. MD to place orders.
[2024-07-10] MEDS: DIGOXIN INJ 250 MCG/ML 2 ML AMP (*BKC) 500 MCG IV PUSH (13:17)
[2024-07-10] MEDS: PERFLUTREN LIPID MICROSPHERES 1.5 ML VIAL DILUTED TO 10 ML TOTAL VOLUME IV PUSH (15:20)
--- NOTE | 2024-07-10 15:57 | PM.IMPN ---
Progress Note: A&P Assessment and Plan (1) Atrial fibrillation: Code(s): I48.91 - Unspecified atrial fibrillation Status: Acute Plan Afib with RVR, now rate controlled Titrate off Cardizem Continue Amiodarone 200mg bid, Eliquis 5mg bid [id number] score 4 ECHO pending, and TSH wnl Cardiology following Dementia A and O x2 appears to be at baseline Continue home meds HLD continue home meds DVT prophylaxis on Eliquis Patient and daughter stated they are going home with home health regardless of PT/OT recommendations ( no rehab or SNF). Subjective Date/time seen: 07/10/24 15:57 Interval history: Patient comfortable at bedside Awaiting ECHO for discharge Review of Systems Review of Systems: All other systems reviewed and negative except as noted in the history above. Exam Narrative: General: alert and comfortable Eyes: EOMI, PERRLA ENNT External ears normal, Neck is supple, no masses, Respiratory systems: Clear to auscultation Cardiovascular S1, S2, normal rhythm, no murmur, rub, or gallop; no thrill or palpable murmurs on palpation. Gastrointestinal: soft, non-tender, and non-distended abdomen with no masses; BS present Skin: no rash, lesions, ulcerations, subcutaneous nodules or induration Musculoskeletal: no abnormality and no tenderness, normal ROM Neurologic: Alert and oriented x2, non focal Mental Status Exam: normal affect Objective Data Vital Signs Vital Signs: Vital Signs - 24 hr 07/09/24 16:00 07/09/24 16:00 07/09/24 16:00 Temperature Pulse Rate 90 90 Respiratory Rate Blood Pressure 118/56 L Pulse Oximetry Oxygen Delivery Room Air 07/09/24 16:44 07/09/24 18:00 07/09/24 18:00 Temperature Pulse Rate 88 77 77 Respiratory Rate Blood Pressure 112/81 Pulse Oximetry Oxygen Delivery 07/09/24 18:00 07/09/24 18:14 07/09/24 20:00 Temperature 98.8 F Pulse Rate 80 86 70 Respiratory Rate 16 Blood Pressure 112/81 Pulse Oximetry 95 Oxygen Delivery 07/09/24 20:38 07/09/24 22:00 07/09/24 23:54 Temperature 98.7 F 98.7 F Pulse Rate 73 79 71 Respiratory Rate 18 18 Blood Pressure 129/79 128/74 Pulse Oximetry 96 96 Oxygen Delivery 07/10/24 00:00 07/10/24 02:00 07/10/24 04:00 Temperature Pulse Rate 79 78 76 Respiratory Rate Blood Pressure Pulse Oximetry Oxygen Delivery 07/10/24 05:22 07/10/24 06:00 07/10/24 08:00 Temperature 98.1 F 97.7 F Pulse Rate 82 77 88 Respiratory Rate 18 18 Blood Pressure 124/72 115/72 Pulse Oximetry 96 96 Oxygen Delivery 07/10/24 08:00 07/10/24 08:00 07/10/24 08:10 Temperature Pulse Rate 95 Respiratory Rate Blood Pressure Pulse Oximetry Oxygen Delivery Room Air Room Air 07/10/24 08:43 07/10/24 10:00 07/10/24 12:00 Temperature 97.8 F Pulse Rate 111 H 93 97 Respiratory Rate 20 Blood Pressure 120/75 Pulse Oximetry 98 Oxygen Delivery 07/10/24 12:00 07/10/24 12:00 07/10/24 13:17 Temperature Pulse Rate 118 H 116 H Respiratory Rate Blood Pressure Pulse Oximetry Oxygen Delivery Room Air 07/10/24 14:00 Temperature Pulse Rate 93 Respiratory Rate Blood Pressure Pulse Oximetry Oxygen Delivery Intake/Output Intake/Output: Intake & Output 07/07/24 07/08/24 07/09/24 07/10/24 23:59 23:59 23:59 23:59 Intake Total 551.6 960.0 900 Output Total 700 2452 1400 Balance -148.4 -1492.0 -500 Meds/Results Medications: Active Medications Generic Name Dose Route Start Last Admin Trade Name Freq PRN Reason Stop Dose Admin Acetaminophen 650 mg 07/10/24 12:03 07/10/24 12:23 Acetaminophen 325 Mg Tablet PO 650 mg Q4H PRN Administration Mild Pain (1-3) or Fever Amiodarone HCl 200 mg 07/09/24 09:00 07/10/24 08:43 Amiodarone Hcl 200 Mg Tablet PO 200 mg BID HASEEB Administration Apixaban 5 mg 07/09/24 09:00 07/10/24 08:43 Apixaban 5 Mg Tablet PO 5 mg Q12HR HASEEB Administration Benzonatate 200 mg 07/08/24 20:40 07/10/24 12:23 Benzonatate 100 Mg Capsule PO 200 mg TID HASEEB Administration Furosemide 40 mg 07/08/24 09:00 07/10/24 08:44 Furosemide Inj 40 Mg/4 Ml Vial IV PUSH 40 mg Q12HR HASEEB Administration Magnesium Oxide 400 mg 07/09/24 09:00 07/10/24 08:44 Magnesium Oxide 400 Mg Tablet PO 400 mg BID HASEEB Administration Metoprolol Tartrate 25 mg 07/10/24 18:00 Metoprolol Tartrate 25 Mg Tablet PO Q6HR HASEEB Perflutren Lipid Microsphere 0 ml 07/08/24 06:34 Perflutren Lipid Microspheres 1.5 Ml Vial Diluted To 10 Ml Total Volume IV PUSH 07/11/24 06:35 ONCE PRN adequate visualization Protocol Sacubitril/Valsartan 1 tab 07/08/24 21:00 07/10/24 08:44 Sacubitril/Valsartan 24-26 Mg Tablet PO 1 tab Q12HR HASEEB Administration Radiology Results: ITS Impressions Chest X-Ray 07/08/24 12:48 IMPRESSION: 1. No acute cardiopulmonary disease. Labs Labs: Laboratory Results - last 24 hr 07/10/24 04:47 WBC 6.3 RBC 4.73 Hgb 14.1 Hct 43.9 MCV 92.8 MCH 29.8 MCHC 32.1 RDW 13.2 Plt Count 193 MPV 10.6 H Immature Gran % (Auto) 0.3 Neut % (Auto) 55.6 Lymph % (Auto) 29.3 [place] % (Auto) 11.3 H Eos % (Auto) 2.9 Baso % (Auto) 0.6 Lymph # (Auto) 1.84 [place] # (Auto) 0.7 H Eos # (Auto) 0.2 Baso # (Auto) 0.0 Abs Immat Gran (auto) 0.02 Absolute Neuts (auto) 3.5 Absolute Nucleated RBC 0.000 Nucleated RBC % 0.0 Sodium 139 Potassium 3.4 Chloride 107 Carbon Dioxide 30 Anion Gap 2 L BUN 19 H Creatinine 0.90 Estim Creat Clear Calc 54 Estimated GFR 60 Glucose 135 H Calcium 8.4 Magnesium 2.1 Total Bilirubin 1.2 AST 18 ALT 16 Alkaline Phosphatase 105 Total Protein 6.0 L Albumin 3.6
[2024-07-10] MEDS: METOPROLOL TARTRATE 25 MG TABLET PO ×3 (16:34→23:42)
--- NOTE | 2024-07-10 17:22 | IVDEFINITY ---
Prior to administration of IV Definity the patient was educated on the risks and benefits of the imaging enhancing agent including potential adverse side effects. The patient verbalized understanding. Allergies were verified. No exclusion criteria were identified and at least one of the following inclusion criteria were met: 1) physician request, 2) patient technically difficult to image (per the [place] [employer] guidelines of two or more segments not discernable within the apical view), or 3) questionable left ventricular function. ?
[2024-07-10] MEDS: MEMANTINE 10 MG TABLET PO (20:17)
[2024-07-10] MEDS: GABAPENTIN 300 MG CAPSULE PO (20:17)
[2024-07-11] VITALS (16 sets, daily range): BP systolic 88–102; BP diastolic 58–76; PULSE 58–79; RESP 18–20; TEMP 36.3–36.8; O2SAT 90–99
[2024-07-11 05:16] LABS: Anion Gap 4 mmol/L (4-12); Blood Urea Nitrogen 31 mg/dL (7-17); Calcium 8.7 mg/dL (8.4-10.2); Carbon Dioxide 28 mmol/L (22-30); Chloride 106 mmol/L (98-107); Estimated CRCL calculation 49 ml/min; Estimated Glomerular Filt Rate 53; Glucose 128 mg/dL (65-110); Magnesium 2.2 mg/dL (1.6-2.3); Potassium 3.4 mmol/L (3.4-5.0); Sodium 138 mmol/L (137-145)
[2024-07-11] MEDS: METOPROLOL TARTRATE 25 MG TABLET PO ×3 (06:47→17:21)
[2024-07-11] MEDS: ACETAMINOPHEN 325 MG TABLET 650 MG PO (06:51)
[2024-07-11] MEDS: MAGNESIUM OXIDE 400 MG TABLET PO ×2 (09:19→17:21)
[2024-07-11] MEDS: BENZONATATE 100 MG CAPSULE 200 MG PO ×3 (09:19→17:21)
[2024-07-11] MEDS: ATORVASTATIN 40 MG TABLET PO (09:19)
[2024-07-11] MEDS: MEMANTINE 10 MG TABLET PO ×2 (09:19→20:56)
[2024-07-11] MEDS: DULoxetine HCL 60 MG CAPSULE.DR PO (09:19)
[2024-07-11] MEDS: CHOLECALCIFEROL 1,000 UNITS TABLET 2000 UNITS PO (09:19)
[2024-07-11] MEDS: SACUBITRIL/VALSARTAN 24-26 MG TABLET 1 TAB PO ×2 (09:19→20:57)
[2024-07-11] MEDS: ASPIRIN 81 MG ENTERIC TABLET PO (09:20)
[2024-07-11] MEDS: AMIODARONE HCL 200 MG TABLET PO ×2 (09:20→17:21)
[2024-07-11] MEDS: GABAPENTIN 300 MG CAPSULE PO ×2 (09:20→20:56)
[2024-07-11] MEDS: APIXABAN 5 MG TABLET PO ×2 (09:20→20:56)
[2024-07-11] MEDS: FUROSEMIDE INJ 40 MG/4 ML VIAL IV PUSH ×2 (09:26→20:56)
[2024-07-11] MEDS: RALOXIFENE HCL (*CHEMO) 60 MG TABLET PO (10:46)
[2024-07-11] MEDS: traMADol HCL (*CRX) 50 MG TABLET PO ×2 (10:46→21:03)
--- NOTE | 2024-07-11 12:01 | PM.PNCARD ---
Progress Note: A&P Assessment and Plan (1) Atrial fibrillation: Code(s): I48.91 - Unspecified atrial fibrillation Status: Acute (2) Dementia: Code(s): F03.90 - Unspecified dementia, unspecified severity, without behavioral disturbance, psychotic disturbance, mood disturbance, and anxiety Status: Acute (3) Hypertension: Code(s): I10 - Essential (primary) hypertension Status: Acute Plan 1. Atrial Fibrillation CHADSVASC 4 2. Hyperlipidemia 3. HTN 4. Dementia - Echo pending - Will transition to metoprolol 50 mg BID - Continue amiodarone 200 mg BID, will transition to 200 mg OD in 2 weeks - Continue apixaban 5 mg BID - No prior history of CAD, can DC ASA 81 mg PO od if there is no compelling indication Subjective Date/time seen: 07/11/24 12:01 Interval history: She went into RV yesterday, asymptomatic Started on metoprolol 25 q6h, one dose of digoxin given rate better controlled now Review of Systems Review of Systems: All other systems reviewed and negative except as noted in the history above. Exam Narrative: General: alert and comfortable Eyes: EOMI, PERRLA ENNT External ears normal, Neck is supple, no masses, Respiratory systems: Clear to auscultation Cardiovascular S1, S2, normal rhythm, no murmur, rub, or gallop; no thrill or palpable murmurs on palpation. Gastrointestinal: soft, non-tender, and non-distended abdomen with no masses; BS present Skin: no rash, lesions, ulcerations, subcutaneous nodules or induration Musculoskeletal: no abnormality and no tenderness, normal ROM Neurologic: Alert and oriented x2, non focal Mental Status Exam: normal affect Objective Data Vital Signs Vital Signs: Vital Signs - 24 hr 07/10/24 13:17 07/10/24 14:00 07/10/24 16:00 Temperature 36.4 C Pulse Rate 116 H 93 94 Respiratory Rate 16 Blood Pressure 104/71 Pulse Oximetry 94 Oxygen Delivery 07/10/24 16:00 07/10/24 16:00 07/10/24 16:34 Temperature Pulse Rate 111 H 109 H Respiratory Rate Blood Pressure Pulse Oximetry Oxygen Delivery Room Air 07/10/24 16:34 07/10/24 18:00 07/10/24 18:37 Temperature Pulse Rate 111 H 71 75 Respiratory Rate Blood Pressure Pulse Oximetry Oxygen Delivery 07/10/24 20:00 07/10/24 20:00 07/10/24 20:55 Temperature 36.4 C Pulse Rate 75 75 71 Respiratory Rate 18 18 Blood Pressure 109/85 Pulse Oximetry 93 93 Oxygen Delivery Room Air 07/10/24 22:00 07/10/24 23:42 07/10/24 23:55 Temperature 36.6 C Pulse Rate 68 72 74 Respiratory Rate 18 Blood Pressure 116/71 Pulse Oximetry 94 Oxygen Delivery 07/11/24 00:00 07/11/24 00:00 07/11/24 01:51 Temperature Pulse Rate 70 70 68 Respiratory Rate 18 Blood Pressure Pulse Oximetry 94 Oxygen Delivery Room Air 07/11/24 04:00 07/11/24 04:00 07/11/24 04:43 Temperature 36.6 C Pulse Rate 74 74 58 L Respiratory Rate 18 18 Blood Pressure 94/76 L Pulse Oximetry 94 94 Oxygen Delivery Room Air 07/11/24 05:58 07/11/24 06:47 07/11/24 07:43 Temperature 36.6 C Pulse Rate 72 74 68 Respiratory Rate 18 Blood Pressure 102/74 Pulse Oximetry 99 Oxygen Delivery 07/11/24 08:00 07/11/24 09:20 07/11/24 10:00 Temperature Pulse Rate 72 72 78 Respiratory Rate Blood Pressure Pulse Oximetry Oxygen Delivery 07/11/24 11:11 Temperature Pulse Rate Respiratory Rate Blood Pressure Pulse Oximetry 94 Oxygen Delivery Room Air Intake/Output Intake/Output: Intake & Output 07/08/24 07/09/24 07/10/24 07/11/24 23:59 23:59 23:59 23:59 Intake Total 551.6 960.0 2790 640 Output Total 700 2452 1650 700 Balance -148.4 -1492.0 1140 -60 Meds/Results Medications: Active Medications Generic Name Dose Route Start Last Admin Trade Name Freq PRN Reason Stop Dose Admin Acetaminophen 650 mg 07/10/24 12:03 07/11/24 06:51 Acetaminophen 325 Mg Tablet PO 650 mg Q4H PRN Administration Mild Pain (1-3) or Fever Amiodarone HCl 200 mg 07/09/24 09:00 07/11/24 09:20 Amiodarone Hcl 200 Mg Tablet PO 200 mg BID HASEEB Administration Apixaban 5 mg 07/09/24 09:00 07/11/24 09:20 Apixaban 5 Mg Tablet PO 5 mg Q12HR HASEEB Administration Aspirin 81 mg 07/11/24 09:00 07/11/24 09:20 Aspirin 81 Mg Enteric Tablet PO 81 mg DAILY HASEEB Administration Atorvastatin Calcium 40 mg 07/11/24 09:00 07/11/24 09:19 Atorvastatin 40 Mg Tablet PO 40 mg DAILY HASEEB Administration Benzonatate 200 mg 07/08/24 20:40 07/11/24 09:19 Benzonatate 100 Mg Capsule PO 200 mg TID HASEEB Administration Duloxetine HCl 60 mg 07/11/24 09:00 07/11/24 09:19 Duloxetine Hcl 60 Mg Capsule.Dr PO 60 mg DAILY HASEEB Administration Furosemide 40 mg 07/08/24 09:00 07/11/24 09:26 Furosemide Inj 40 Mg/4 Ml Vial IV PUSH 40 mg Q12HR HASEEB Administration Gabapentin 300 mg 07/10/24 21:00 07/11/24 09:20 Gabapentin 300 Mg Capsule PO 300 mg Q12H HASEEB Administration Magnesium Oxide 400 mg 07/09/24 09:00 07/11/24 09:19 Magnesium Oxide 400 Mg Tablet PO 400 mg BID HASEEB Administration Memantine 10 mg 07/10/24 21:00 07/11/24 09:19 Memantine 10 Mg Tablet PO 10 mg Q12HR HASEEB Administration Metoprolol Tartrate 25 mg 07/10/24 18:00 07/11/24 06:47 Metoprolol Tartrate 25 Mg Tablet PO 25 mg Q6HR HASEEB Administration Raloxifene HCl 60 mg 07/11/24 09:45 07/11/24 10:46 Raloxifene Hcl (*Chemo) 60 Mg Tablet PO 60 mg QAM HASEEB Administration Sacubitril/Valsartan 1 tab 07/08/24 21:00 07/11/24 09:19 Sacubitril/Valsartan 24-26 Mg Tablet PO 1 tab Q12HR HASEEB Administration Tramadol HCl 50 mg 07/11/24 09:38 07/11/24 10:46 Tramadol Hcl (*Crx) 50 Mg Tablet PO 50 mg BID PRN Administration Pain Rated 4-6 Vitamin D 2,000 units 07/11/24 09:00 07/11/24 09:19 Cholecalciferol 1,000 Units Tablet PO 2,000 units DAILY HASEEB Administration Radiology Results: ITS Impressions Chest X-Ray 07/08/24 12:48 IMPRESSION: 1. No acute cardiopulmonary disease. Shoulder X-Ray 07/11/24 09:45 Impression: Advanced glenohumeral joint degenerative change. Labs Labs: Laboratory Results - last 24 hr 07/11/24 04:39 Sodium 138 Potassium 3.4 Chloride 106 Carbon Dioxide 28 Anion Gap 4 BUN 31 H D Creatinine 1.00 Estim Creat Clear Calc 49 Estimated GFR 53 L Glucose 128 H Calcium 8.7 Magnesium 2.2
--- NOTE | 2024-07-11 12:07 | PM.IMPN ---
Progress Note: A&P Assessment and Plan (1) Atrial fibrillation: Code(s): I48.91 - Unspecified atrial fibrillation Status: Acute Assessment and Plan: Patient is on Eliquis for anticoagulation, amiodarone for heart rate control. Will continue current treatment monitor closely (2) Hypertension: Code(s): I10 - Essential (primary) hypertension Status: Acute Assessment and Plan: Stable on current medication, continue current treatment. (3) Arthritis: Code(s): M19.90 - Unspecified osteoarthritis, unspecified site Status: Acute Assessment and Plan: Stable on current medication, continue current treatment. (4) Dementia: Code(s): F03.90 - Unspecified dementia, unspecified severity, without behavioral disturbance, psychotic disturbance, mood disturbance, and anxiety Status: Acute Assessment and Plan: Stable on current medication, continue current treatment. Plan Afib with RVR, now rate controlled Titrate off Cardizem Continue Amiodarone 200mg bid, Eliquis 5mg bid [id number] score 4 ECHO pending, and TSH wnl Cardiology following Dementia A and O x2 appears to be at baseline Continue home meds HLD continue home meds DVT prophylaxis on Eliquis Patient and daughter stated they are going home with home health regardless of PT/OT recommendations ( no rehab or SNF). Subjective Date/time seen: 07/11/24 12:07 Interval history: Patient is feeling better today. No shortness of breath or chest pain. No abdominal pain, nausea, no vomiting. Review of Systems Review of Systems: All other systems reviewed and negative except as noted in the history above. Exam Narrative: General: alert and comfortable Eyes: EOMI, PERRLA ENNT External ears normal, Neck is supple, no masses, Respiratory systems: Clear to auscultation Cardiovascular S1, S2, irregular rhythm, no murmur, rub, or gallop; no thrill or palpable murmurs on palpation. Gastrointestinal: soft, non-tender, and non-distended abdomen with no masses; BS present Skin: no rash, lesions, ulcerations, subcutaneous nodules or induration Musculoskeletal: no abnormality and no tenderness, normal ROM Neurologic: Alert and oriented x2, non focal Mental Status Exam: normal affect Objective Data Vital Signs Vital Signs: Vital Signs - 24 hr 07/10/24 13:17 07/10/24 14:00 07/10/24 16:00 Temperature 36.4 C Pulse Rate 116 H 93 94 Respiratory Rate 16 Blood Pressure 104/71 Pulse Oximetry 94 Oxygen Delivery 07/10/24 16:00 07/10/24 16:00 07/10/24 16:34 Temperature Pulse Rate 111 H 109 H Respiratory Rate Blood Pressure Pulse Oximetry Oxygen Delivery Room Air 07/10/24 16:34 07/10/24 18:00 07/10/24 18:37 Temperature Pulse Rate 111 H 71 75 Respiratory Rate Blood Pressure Pulse Oximetry Oxygen Delivery 07/10/24 20:00 07/10/24 20:00 07/10/24 20:55 Temperature 36.4 C Pulse Rate 75 75 71 Respiratory Rate 18 18 Blood Pressure 109/85 Pulse Oximetry 93 93 Oxygen Delivery Room Air 07/10/24 22:00 07/10/24 23:42 07/10/24 23:55 Temperature 36.6 C Pulse Rate 68 72 74 Respiratory Rate 18 Blood Pressure 116/71 Pulse Oximetry 94 Oxygen Delivery 07/11/24 00:00 07/11/24 00:00 07/11/24 01:51 Temperature Pulse Rate 70 70 68 Respiratory Rate 18 Blood Pressure Pulse Oximetry 94 Oxygen Delivery Room Air 07/11/24 04:00 07/11/24 04:00 07/11/24 04:43 Temperature 36.6 C Pulse Rate 74 74 58 L Respiratory Rate 18 18 Blood Pressure 94/76 L Pulse Oximetry 94 94 Oxygen Delivery Room Air 07/11/24 05:58 07/11/24 06:47 07/11/24 07:43 Temperature 36.6 C Pulse Rate 72 74 68 Respiratory Rate 18 Blood Pressure 102/74 Pulse Oximetry 99 Oxygen Delivery 07/11/24 08:00 07/11/24 09:20 07/11/24 10:00 Temperature Pulse Rate 72 72 78 Respiratory Rate Blood Pressure Pulse Oximetry Oxygen Delivery 07/11/24 11:11 Temperature Pulse Rate Respiratory Rate Blood Pressure Pulse Oximetry 94 Oxygen Delivery Room Air Intake/Output Intake/Output: Intake & Output 07/08/24 07/09/24 07/10/24 07/11/24 23:59 23:59 23:59 23:59 Intake Total 551.6 960.0 2790 640 Output Total 700 2452 1650 700 Balance -148.4 -1492.0 1140 -60 Meds/Results Medications: Active Medications Generic Name Dose Route Start Last Admin Trade Name Faizanq PRN Reason Stop Dose Admin Acetaminophen 650 mg 07/10/24 12:03 07/11/24 06:51 Acetaminophen 325 Mg Tablet PO 650 mg Q4H PRN Administration Mild Pain (1-3) or Fever Amiodarone HCl 200 mg 07/09/24 09:00 07/11/24 09:20 Amiodarone Hcl 200 Mg Tablet PO 200 mg BID HASEEB Administration Apixaban 5 mg 07/09/24 09:00 07/11/24 09:20 Apixaban 5 Mg Tablet PO 5 mg Q12HR HASEEB Administration Aspirin 81 mg 07/11/24 09:00 07/11/24 09:20 Aspirin 81 Mg Enteric Tablet PO 81 mg DAILY HASEEB Administration Atorvastatin Calcium 40 mg 07/11/24 09:00 07/11/24 09:19 Atorvastatin 40 Mg Tablet PO 40 mg DAILY HASEEB Administration Benzonatate 200 mg 07/08/24 20:40 07/11/24 09:19 Benzonatate 100 Mg Capsule PO 200 mg TID HASEEB Administration Duloxetine HCl 60 mg 07/11/24 09:00 07/11/24 09:19 Duloxetine Hcl 60 Mg Capsule.Dr PO 60 mg DAILY HASEEB Administration Furosemide 40 mg 07/08/24 09:00 07/11/24 09:26 Furosemide Inj 40 Mg/4 Ml Vial IV PUSH 40 mg Q12HR HASEEB Administration Gabapentin 300 mg 07/10/24 21:00 07/11/24 09:20 Gabapentin 300 Mg Capsule PO 300 mg Q12H HASEEB Administration Magnesium Oxide 400 mg 07/09/24 09:00 07/11/24 09:19 Magnesium Oxide 400 Mg Tablet PO 400 mg BID HASEEB Administration Memantine 10 mg 07/10/24 21:00 07/11/24 09:19 Memantine 10 Mg Tablet PO 10 mg Q12HR HASEEB Administration Metoprolol Tartrate 25 mg 07/10/24 18:00 07/11/24 06:47 Metoprolol Tartrate 25 Mg Tablet PO 25 mg Q6HR HASEEB Administration Raloxifene HCl 60 mg 07/11/24 09:45 07/11/24 10:46 Raloxifene Hcl (*Chemo) 60 Mg Tablet PO 60 mg QAM HASEEB Administration Sacubitril/Valsartan 1 tab 07/08/24 21:00 07/11/24 09:19 Sacubitril/Valsartan 24-26 Mg Tablet PO 1 tab Q12HR HASEEB Administration Tramadol HCl 50 mg 07/11/24 09:38 07/11/24 10:46 Tramadol Hcl (*Crx) 50 Mg Tablet PO 50 mg BID PRN Administration Pain Rated 4-6 Vitamin D 2,000 units 07/11/24 09:00 07/11/24 09:19 Cholecalciferol 1,000 Units Tablet PO 2,000 units DAILY HASEEB Administration Radiology Results: ITS Impressions Chest X-Ray 07/08/24 12:48 IMPRESSION: 1. No acute cardiopulmonary disease. Shoulder X-Ray 07/11/24 09:45 Impression: Advanced glenohumeral joint degenerative change. Labs Labs: Laboratory Results - last 24 hr 07/11/24 04:39 Sodium 138 Potassium 3.4 Chloride 106 Carbon Dioxide 28 Anion Gap 4 BUN 31 H D Creatinine 1.00 Estim Creat Clear Calc 49 Estimated GFR 53 L Glucose 128 H Calcium 8.7 Magnesium 2.2
--- NOTE | 2024-07-11 12:37 | PM.PNCARD ---
Progress Note: A&P Assessment and Plan (1) Dementia: Code(s): F03.90 - Unspecified dementia, unspecified severity, without behavioral disturbance, psychotic disturbance, mood disturbance, and anxiety Status: Acute Assessment and Plan: Continue on medications for dementia (2) Atrial fibrillation: Code(s): I48.91 - Unspecified atrial fibrillation Status: Acute Assessment and Plan: Agree with anticoagulation and and switching the Lopressor 25 q.6 hours to 50 b.i.d. along with amiodarone. Long-term plan is that she will follow up with Dr. Jiménez and he will probably end up cardioverting her. (3) Hypertension: Code(s): I10 - Essential (primary) hypertension Status: Acute Assessment and Plan: Blood pressure seems to be reasonably well controlled (4) Systolic murmur at cardiac apex: Code(s): R01.1 - Cardiac murmur, unspecified Status: Acute Subjective Date/time seen: 07/11/24 12:37 Interval history: Patient is doing well and had some rapid heart rates but this seems to be well controlled now Review of Systems Review of Systems: All systems reviewed & are unremarkable except as noted in HPI and below (shoulder pain) Exam Narrative: No acute distress Const: General: comfortable Cardio: Other: S1-S2 irregularly irregular Objective Data Vital Signs Vital Signs: Vital Signs - 24 hr 07/10/24 13:17 07/10/24 14:00 07/10/24 16:00 Temperature 36.4 C Pulse Rate 116 H 93 94 Respiratory Rate 16 Blood Pressure 104/71 Pulse Oximetry 94 Oxygen Delivery 07/10/24 16:00 07/10/24 16:00 07/10/24 16:34 Temperature Pulse Rate 111 H 109 H Respiratory Rate Blood Pressure Pulse Oximetry Oxygen Delivery Room Air 07/10/24 16:34 07/10/24 18:00 07/10/24 18:37 Temperature Pulse Rate 111 H 71 75 Respiratory Rate Blood Pressure Pulse Oximetry Oxygen Delivery 07/10/24 20:00 07/10/24 20:00 07/10/24 20:55 Temperature 36.4 C Pulse Rate 75 75 71 Respiratory Rate 18 18 Blood Pressure 109/85 Pulse Oximetry 93 93 Oxygen Delivery Room Air 07/10/24 22:00 07/10/24 23:42 07/10/24 23:55 Temperature 36.6 C Pulse Rate 68 72 74 Respiratory Rate 18 Blood Pressure 116/71 Pulse Oximetry 94 Oxygen Delivery 07/11/24 00:00 07/11/24 00:00 07/11/24 01:51 Temperature Pulse Rate 70 70 68 Respiratory Rate 18 Blood Pressure Pulse Oximetry 94 Oxygen Delivery Room Air 07/11/24 04:00 07/11/24 04:00 07/11/24 04:43 Temperature 36.6 C Pulse Rate 74 74 58 L Respiratory Rate 18 18 Blood Pressure 94/76 L Pulse Oximetry 94 94 Oxygen Delivery Room Air 07/11/24 05:58 07/11/24 06:47 07/11/24 07:43 Temperature 36.6 C Pulse Rate 72 74 68 Respiratory Rate 18 Blood Pressure 102/74 Pulse Oximetry 99 Oxygen Delivery 07/11/24 08:00 07/11/24 09:20 07/11/24 10:00 Temperature Pulse Rate 72 72 78 Respiratory Rate Blood Pressure Pulse Oximetry Oxygen Delivery 07/11/24 11:11 Temperature Pulse Rate Respiratory Rate Blood Pressure Pulse Oximetry 94 Oxygen Delivery Room Air Intake/Output Intake/Output: Intake & Output 07/08/24 07/09/24 07/10/24 07/11/24 23:59 23:59 23:59 23:59 Intake Total 551.6 960.0 2790 640 Output Total 700 2452 1650 700 Balance -148.4 -1492.0 1140 -60 Meds/Results Medications: Active Medications Generic Name Dose Route Start Last Admin Trade Name Freq PRN Reason Stop Dose Admin Acetaminophen 650 mg 07/10/24 12:03 07/11/24 06:51 Acetaminophen 325 Mg Tablet PO 650 mg Q4H PRN Administration Mild Pain (1-3) or Fever Acetaminophen 325 mg 07/12/24 09:00 Acetaminophen 325 Mg Tablet PO DAILY HASEEB Amiodarone HCl 200 mg 07/09/24 09:00 07/11/24 09:20 Amiodarone Hcl 200 Mg Tablet PO 200 mg BID HASEEB Administration Apixaban 5 mg 07/09/24 09:00 07/11/24 09:20 Apixaban 5 Mg Tablet PO 5 mg Q12HR HASEEB Administration Aspirin 81 mg 07/11/24 09:00 07/11/24 09:20 Aspirin 81 Mg Enteric Tablet PO 81 mg DAILY HASEEB Administration Atorvastatin Calcium 40 mg 07/11/24 09:00 07/11/24 09:19 Atorvastatin 40 Mg Tablet PO 40 mg DAILY HASEEB Administration Benzonatate 200 mg 07/08/24 20:40 07/11/24 09:19 Benzonatate 100 Mg Capsule PO 200 mg TID HASEEB Administration Donepezil HCl 10 mg 07/12/24 09:00 Donepezil Hcl 10 Mg Tablet PO DAILY HASEEB Duloxetine HCl 60 mg 07/11/24 09:00 07/11/24 09:19 Duloxetine Hcl 60 Mg Capsule.Dr PO 60 mg DAILY HASEEB Administration Furosemide 40 mg 07/08/24 09:00 07/11/24 09:26 Furosemide Inj 40 Mg/4 Ml Vial IV PUSH 40 mg Q12HR HASEEB Administration Gabapentin 300 mg 07/10/24 21:00 07/11/24 09:20 Gabapentin 300 Mg Capsule PO 300 mg Q12H HASEEB Administration Magnesium Oxide 400 mg 07/09/24 09:00 07/11/24 09:19 Magnesium Oxide 400 Mg Tablet PO 400 mg BID HASEEB Administration Memantine 10 mg 07/10/24 21:00 07/11/24 09:19 Memantine 10 Mg Tablet PO 10 mg Q12HR HASEEB Administration Metoprolol Tartrate 25 mg 07/10/24 18:00 07/11/24 06:47 Metoprolol Tartrate 25 Mg Tablet PO 25 mg Q6HR HASEEB Administration Raloxifene HCl 60 mg 07/11/24 09:45 07/11/24 10:46 Raloxifene Hcl (*Chemo) 60 Mg Tablet PO 60 mg QAM HASEEB Administration Raloxifene HCl 60 mg 07/12/24 09:00 Raloxifene Hcl (*Chemo) 60 Mg Tablet PO DAILY HASEEB Sacubitril/Valsartan 1 tab 07/08/24 21:00 07/11/24 09:19 Sacubitril/Valsartan 24-26 Mg Tablet PO 1 tab Q12HR HASEEB Administration Tramadol HCl 50 mg 07/11/24 09:38 07/11/24 10:46 Tramadol Hcl (*Crx) 50 Mg Tablet PO 50 mg BID PRN Administration Pain Rated 4-6 Tramadol HCl 50 mg 07/11/24 12:06 Tramadol Hcl (*Crx) 50 Mg Tablet PO Q12H PRN shoulder pain Vitamin D 2,000 units 07/11/24 09:00 07/11/24 09:19 Cholecalciferol 1,000 Units Tablet PO 2,000 units DAILY HASEEB Administration Radiology Results: ITS Impressions Chest X-Ray 07/08/24 12:48 IMPRESSION: 1. No acute cardiopulmonary disease. Shoulder X-Ray 07/11/24 09:45 Impression: Advanced glenohumeral joint degenerative change. Labs Labs: Laboratory Results - last 24 hr 07/11/24 04:39 Sodium 138 Potassium 3.4 Chloride 106 Carbon Dioxide 28 Anion Gap 4 BUN 31 H D Creatinine 1.00 Estim Creat Clear Calc 49 Estimated GFR 53 L Glucose 128 H Calcium 8.7 Magnesium 2.2
--- NOTE | 2024-07-11 22:11 | PC.NURSE ---
This patient, Ernestine Salinas, was transferred to [[id number] ] on 07/11/24 at 2211. Personal belongings sent with patient. Report given to [Abhinav manning ]. Appropriate documentation sent with patient.
[2024-07-11] MEDS: SODIUM CHLORIDE 0.9% IV 500 ML IV CONT (23:18)
[2024-07-12] VITALS (14 sets, daily range): BP systolic 78–112; BP diastolic 46–82; PULSE 61–99; RESP 12–20; TEMP 35.7–36.8; O2SAT 90–94
--- NOTE | 2024-07-12 00:58 | ECG_ITS ---
Test Date: 2024-07-12 01:24:28 Measurements Intervals Stuart Rate: 74 P: 0 NM: 0 QRS: 13 QRSD: 99 T: 44 QT: 445 QTc: 496 Interpretive Statements ATRIAL FIBRILLATION NONSPECIFIC T-WAVE ABNORMALITY PROLONGED QT INTERVAL Compared to ECG 07/09/2024 09:01:49 Prolonged QT interval now present T-wave abnormality still present Electronically Signed On 07-17-2024 10:11:58 [employer] by Zach Arambula M.D.
[2024-07-12] MEDS: SODIUM CHLORIDE 0.9% IV 500 ML IV CONT ×2 (01:07→02:25)
[2024-07-12 01:49] LABS: Lactic Acid Reflex 1.2 mmol/L (0.7-2.0)
[2024-07-12 01:52] LABS: Alanine Aminotransferase 13 U/L (6-35); Albumin Level 3.2 g/dL (3.5-5.1); Alkaline Phosphatase 87 U/L (38-126); Anion Gap 2 mmol/L (4-12); Aspartate Amino Transferase 17 U/L (14-36); Bilirubin,Total 1.1 mg/dL (0.2-1.3); Blood Urea Nitrogen 41 mg/dL (7-17); Calcium 8.1 mg/dL (8.4-10.2); Carbon Dioxide 29 mmol/L (22-30); Chloride 100 mmol/L (98-107); Estimated CRCL calculation 29 ml/min; Estimated Glomerular Filt Rate 29; Glucose 143 mg/dL (65-110); Potassium 3.7 mmol/L (3.4-5.0); Sodium 131 mmol/L (137-145)
[2024-07-12 02:01] LABS: Troponin I < 0.012 ng/mL (0.000-0.034)
[2024-07-12] MEDS: SODIUM CHLORIDE 0.9% IV 1,000 ML 100 ML IV CONT (03:34)
[2024-07-12] MEDS: methylPREDNISolone SOD SUCC 125 MG VIAL 80 MG IV PUSH (09:43)
[2024-07-12] MEDS: ACETAMINOPHEN 325 MG TABLET PO (09:43)
[2024-07-12] MEDS: BENZONATATE 100 MG CAPSULE 200 MG PO ×2 (09:43→12:07)
[2024-07-12] MEDS: RALOXIFENE HCL (*CHEMO) 60 MG TABLET PO (09:44)
[2024-07-12] MEDS: GABAPENTIN 300 MG CAPSULE PO ×2 (09:44→20:36)
[2024-07-12] MEDS: AMIODARONE HCL 200 MG TABLET PO ×2 (09:44→16:51)
[2024-07-12] MEDS: MEMANTINE 10 MG TABLET PO ×2 (09:44→20:36)
[2024-07-12] MEDS: DONEPEZIL HCL 10 MG TABLET PO (09:44)
[2024-07-12] MEDS: MAGNESIUM OXIDE 400 MG TABLET PO ×2 (09:44→16:51)
[2024-07-12] MEDS: CHOLECALCIFEROL 1,000 UNITS TABLET 2000 UNITS PO (09:44)
[2024-07-12] MEDS: APIXABAN 5 MG TABLET PO ×2 (09:44→20:36)
[2024-07-12] MEDS: ASPIRIN 81 MG ENTERIC TABLET PO (09:44)
[2024-07-12] MEDS: ATORVASTATIN 40 MG TABLET PO (09:45)
[2024-07-12] MEDS: DULoxetine HCL 60 MG CAPSULE.DR PO (09:45)
[2024-07-12] MEDS: SACUBITRIL/VALSARTAN 24-26 MG TABLET 1 TAB PO ×2 (09:45→21:35)
--- NOTE | 2024-07-12 10:35 | PM.IMPN ---
Progress Note: A&P Assessment and Plan (1) Atrial fibrillation: Code(s): I48.91 - Unspecified atrial fibrillation Status: Acute Assessment and Plan: Patient is on Eliquis for anticoagulation, amiodarone for heart rate control. Will continue current treatment monitor closely Will hold off metoprolol for now. Cardiology on consult (2) Arthritis: Code(s): M19.90 - Unspecified osteoarthritis, unspecified site Status: Acute Assessment and Plan: Stable on current medication, continue current treatment. (3) Dementia: Code(s): F03.90 - Unspecified dementia, unspecified severity, without behavioral disturbance, psychotic disturbance, mood disturbance, and anxiety Status: Acute Assessment and Plan: Stable on current medication, continue current treatment. (4) Hypotension: Code(s): I95.9 - Hypotension, unspecified Status: Acute Assessment and Plan: Resolved. Blood pressure is 108/70. Will continue to hold metoprolol for now. Plan 07/12/2024 Case discussed with daughter in detail. She is in agreement with current plan of care and treatment. Most likely the episode of hypotension was secondary to metoprolol. Metoprolol was on hold now. Blood pressure is stable at present time. Bladder scan showed Patient had 350 cc urinary bladder. Dominguez was placed and left in for monitoring of input and output. Cardiology and Renal consult. Will follow labs. Afib with RVR, now rate controlled Titrate off Cardizem Continue Amiodarone 200mg bid, Eliquis 5mg bid [id number] score 4 ECHO pending, and TSH wnl Cardiology following Dementia A and O x2 appears to be at baseline Continue home meds HLD continue home meds DVT prophylaxis on Eliquis Patient and daughter stated they are going home with home health regardless of PT/OT recommendations ( no rehab or SNF). Subjective Date/time seen: 07/12/24 10:35 Interval history: Patient was seen during the morning rounds today. Last night events of low blood pressure noted, probably secondary to metoprolol. Patient blood pressure is stable now. Patient did receive some fluid overnight. Metoprolol is on hold now. Daughter is at bedside. Patient denies any shortness of breath or chest pain. No abdominal pain, nausea, no vomiting. Pain controlled. Review of Systems Review of Systems: All other systems reviewed and negative except as noted in the history above. Exam Narrative: General: alert and comfortable Eyes: EOMI, PERRLA ENNT External ears normal, Neck is supple, no masses, Respiratory systems: Clear to auscultation Cardiovascular S1, S2, irregular rhythm, no murmur, rub, or gallop; no thrill or palpable murmurs on palpation. Gastrointestinal: soft, non-tender, and non-distended abdomen with no masses; BS present Skin: no rash, lesions, ulcerations, subcutaneous nodules or induration Musculoskeletal: no abnormality and no tenderness, normal ROM Neurologic: Alert and oriented x2, non focal Mental Status Exam: normal affect Objective Data Vital Signs Vital Signs: Vital Signs - 24 hr 07/11/24 11:11 07/11/24 12:00 07/11/24 15:11 Temperature 36.8 C Pulse Rate 74 63 Respiratory Rate 18 Blood Pressure 101/75 Pulse Oximetry 94 93 Oxygen Delivery Room Air 07/11/24 20:00 07/11/24 21:35 07/11/24 22:54 Temperature 36.3 C L Pulse Rate 68 79 Respiratory Rate 18 20 18 Blood Pressure 98/65 L 88/58 L Pulse Oximetry 93 94 90 Oxygen Delivery Room Air 07/12/24 00:00 07/12/24 00:55 07/12/24 01:56 Temperature Pulse Rate 67 Respiratory Rate Blood Pressure 78/46 L 82/56 L Pulse Oximetry Oxygen Delivery 07/12/24 03:22 07/12/24 04:00 07/12/24 06:00 Temperature 36.8 C Pulse Rate 62 63 Respiratory Rate 12 Blood Pressure 84/56 L 92/67 L Pulse Oximetry 93 Oxygen Delivery 07/12/24 09:44 Temperature Pulse Rate 65 Respiratory Rate Blood Pressure Pulse Oximetry Oxygen Delivery Intake/Output Intake/Output: Intake & Output 07/09/24 07/10/24 07/11/24 07/12/24 23:59 23:59 23:59 23:59 Intake Total 960.0 2790 1120 358 Output Total 2452 1650 1100 50 Balance -1492.0 1140 20 308 Meds/Results Medications: Active Medications Generic Name Dose Route Start Last Admin Trade Name Freq PRN Reason Stop Dose Admin Acetaminophen 650 mg 07/10/24 12:03 07/11/24 06:51 Acetaminophen 325 Mg Tablet PO 650 mg Q4H PRN Administration Mild Pain (1-3) or Fever Acetaminophen 325 mg 07/12/24 09:00 07/12/24 09:43 Acetaminophen 325 Mg Tablet PO 325 mg DAILY HASEEB Administration Amiodarone HCl 200 mg 07/09/24 09:00 07/12/24 09:44 Amiodarone Hcl 200 Mg Tablet PO 200 mg BID HASEEB Administration Apixaban 5 mg 07/09/24 09:00 07/12/24 09:44 Apixaban 5 Mg Tablet PO 5 mg Q12HR HASEEB Administration Aspirin 81 mg 07/11/24 09:00 07/12/24 09:44 Aspirin 81 Mg Enteric Tablet PO 81 mg DAILY HASEEB Administration Atorvastatin Calcium 40 mg 07/11/24 09:00 07/12/24 09:45 Atorvastatin 40 Mg Tablet PO 40 mg DAILY HASEEB Administration Benzonatate 200 mg 07/08/24 20:40 07/12/24 09:43 Benzonatate 100 Mg Capsule PO 200 mg TID HASEEB Administration Donepezil HCl 10 mg 07/12/24 09:00 07/12/24 09:44 Donepezil Hcl 10 Mg Tablet PO 10 mg DAILY HASEEB Administration Duloxetine HCl 60 mg 07/11/24 09:00 07/12/24 09:45 Duloxetine Hcl 60 Mg Capsule.Dr PO 60 mg DAILY HASEEB Administration Furosemide 40 mg 07/08/24 09:00 07/11/24 20:56 Furosemide Inj 40 Mg/4 Ml Vial IV PUSH 40 mg Q12HR HASEEB Administration Gabapentin 300 mg 07/10/24 21:00 07/12/24 09:44 Gabapentin 300 Mg Capsule PO 300 mg Q12H HASEEB Administration Sodium Chloride 1,000 mls @ 50 mls/hr 07/12/24 03:25 07/12/24 03:34 Normal Saline Iv IV CONT 07/12/24 23:24 100 mls/hr .Q20H ONE Administration Sodium Chloride 1,000 mls @ 50 mls/hr 07/12/24 08:43 Normal Saline Iv IV CONT 07/13/24 04:42 .Q20H ONE Magnesium Oxide 400 mg 07/09/24 09:00 07/12/24 09:44 Magnesium Oxide 400 Mg Tablet PO 400 mg BID HASEEB Administration Memantine 10 mg 07/10/24 21:00 07/12/24 09:44 Memantine 10 Mg Tablet PO 10 mg Q12HR HASEEB Administration Metoprolol Tartrate 25 mg 07/10/24 18:00 07/12/24 05:11 Metoprolol Tartrate 25 Mg Tablet PO Not Given Q6HR [facility] Raloxifene HCl 60 mg 07/11/24 09:45 07/12/24 09:44 Raloxifene Hcl (*Chemo) 60 Mg Tablet PO 60 mg QAM HASEEB Administration Raloxifene HCl 60 mg 07/12/24 09:00 Raloxifene Hcl (*Chemo) 60 Mg Tablet PO DAILY HASEEB Sacubitril/Valsartan 1 tab 07/08/24 21:00 07/12/24 09:45 Sacubitril/Valsartan 24-26 Mg Tablet PO 1 tab Q12HR HASEEB Administration Tramadol HCl 50 mg 07/11/24 09:38 07/11/24 21:03 Tramadol Hcl (*Crx) 50 Mg Tablet PO 50 mg BID PRN Administration Pain Rated 4-6 Tramadol HCl 50 mg 07/11/24 12:06 Tramadol Hcl (*Crx) 50 Mg Tablet PO Q12H PRN shoulder pain Vitamin D 2,000 units 07/11/24 09:00 07/12/24 09:44 Cholecalciferol 1,000 Units Tablet PO 2,000 units DAILY HASEEB Administration Radiology Results: ITS Impressions Chest X-Ray 07/08/24 12:48 IMPRESSION: 1. No acute cardiopulmonary disease. Shoulder X-Ray 07/11/24 09:45 Impression: Advanced glenohumeral joint degenerative change. Labs Labs: Laboratory Results - last 24 hr 07/12/24 01:21 Sodium 131 L Potassium 3.7 Chloride 100 Carbon Dioxide 29 Anion Gap 2 L BUN 41 H D Creatinine 1.70 H Estim Creat Clear Calc 29 Estimated GFR 29 L Glucose 143 H Lactic Acid 1.2 Calcium 8.1 L Total Bilirubin 1.1 AST 17 ALT 13 Alkaline Phosphatase 87 Troponin I < 0.012 Total Protein 6.0 L Albumin 3.2 L
[2024-07-12 11:41] LABS: Add Urine Microscopic? YES; Appearance Urine Clear (Clear); Bacteria Urine None Seen /hpf; Bilirubin Urine Negative (Negative); Blood Urine Negative (Negative); Color Urine Yellow (Yellow); Glucose Urine UA Negative (Negative); Ketones Urine Negative (Negative); Leukocyte Esterase Ur Trace LEU/UL (Negative); Nitrate Urine Negative (Negative); Protein Urine Negative (Negative); RBC Urine 0-2 /hpf (0-2); Specific Grav Ur 1.015 (1.001-1.035); Squamous Epithelial Cell Urine Few /hpf (Few); Urobilinogen Urine 0.2 mg/dL (<2.0)
[2024-07-12 12:09] LABS: Anion Gap 1 mmol/L (4-12); Blood Urea Nitrogen 39 mg/dL (7-17); Calcium 8.3 mg/dL (8.4-10.2); Carbon Dioxide 32 mmol/L (22-30); Chloride 101 mmol/L (98-107); Estimated CRCL calculation 33 ml/min; Estimated Glomerular Filt Rate 33; Glucose 155 mg/dL (65-110); Potassium 3.7 mmol/L (3.4-5.0); Sodium 134 mmol/L (137-145)
--- NOTE | 2024-07-12 12:21 | P.CONNP_ITS ---
Assessment and Plan Assessment and plan (1) JOSÉ MIGUEL (acute kidney injury): Code(s): N17.9 - Acute kidney failure, unspecified Status: Acute Assessment and Plan: * as noted by labs done earlier today (creatinine of 1.7mg/dl) * mild improvement already noted - repeat creatinine 1.5mg/dl * normal creatinine at baseline * suspect related to hypotension, Entresto use, diuretic therapy and possible atrial fibrillation * check urine studies and CPK * will consider renal ultrasound if renal function continues to worsen * agree with trial of IVFs and holding diuretics * follow trend of repeat labs and UOP (2) Hypotension: Code(s): I95.9 - Hypotension, unspecified Status: Acute Assessment and Plan: * appears to be doing better * BP medications on hold * trial of IVFs * follow trend of hemodynamics (3) Atrial fibrillation: Code(s): I48.91 - Unspecified atrial fibrillation Status: Acute Assessment and Plan: * Cardiology following * on anticoagulation * continue rate control strategy within the limits of hemodynamics (4) Dementia: Code(s): F03.90 - Unspecified dementia, unspecified severity, without behavioral disturbance, psychotic disturbance, mood disturbance, and anxiety Status: Chronic Assessment and Plan: * chronic issues * continue current medications/treatment I will continue to follow the patient with you while she remains hospitalized and make further recommendations as deemed necessary. Thank you for allowing me to participate in the care of this patient. L History of Present Illness Reason for Consult Consult date: 07/12/24 Reason for consult: acute renal failure Chief Complaint Chief complaint: Atrial fibrillation, new onset History of Present Illness Narrative: Most of the information that I have obtained is from review of electronic medical record as well as discussion with the physician/nurses involved in the patient's care as well as family at bedside as is difficult to get a full and complete history from the patient given her dementia. The patient is an 83-year-old female with a past medical history as outlined below presented to [facility] Emergency Room due to atrial fibrillation. The patient was seen earlier today and her primary care physician's office for complaints of shortness of breath. She was evaluated and was noted be in atrial fibrillation with RVR. She was subsequently referred for further intervention. Aside from her shortness of breath, she denies any other symptoms with regard to chest pain, vomiting, diarrhea, palpitations, fevers, chills, or lightheadedness. Workup and evaluation emergency room demonstrated the patient be hemodynamically stable and in no apparent distress. Routine blood work demonstrated an elevated proBNP, potassium of 3.4, magnesium of 2.2 and otherwise normal CBC and renal function. Her chest x-ray showed no acute changes and her EKG demonstrated atrial fibrillation with rapid ventricular rate of 101. Cardiology was consulted from the emergency room and she was subsequently admitted to the hospital for further evaluation and therapy. Since her admission, cardiology has been following the patient with ongoing attempts at rate control. She initially was started on IV diltiazem drip but then was subsequently switched over to a combination of metoprolol and amiodarone. Unfortunately, her blood pressure and relative hypotension make it somewhat difficult to continue rate controlling medications. She was initiated on anticoagulation as well. Renal consultation was requested due to evidence of acute kidney injury/acute renal failure by labs done earlier this morning. As mentioned already, on admission to the hospital the patient's kidney function was well within normal limits. It maintained itself following her hospitalization up until today when her creatinine abruptly martina to 1.7 mg/dL with repeat labs done later this morning at 1.5 mg/dL in spite of her fluctuating creatinine, she has had no issues or problems with critical electrolyte abnormalities, metabolic acidosis, volume overload, or uremia. It should be noted that she has been having issues and problems with hypotension for last 24-48 hours in conjunction with her atrial fibrillation and hence her blood pressure medications have been placed on hold and she is currently receiving IV fluids as well. Currently, at the time my evaluation, she does not appear to be in any acute distress. Review of Systems 2 Review of Systems: As per HPI. [facility] Family History Family History (Updated 07/08/24 @ 10:09 by Heidi Buckley RN) Sibling Breast cancer Alzheimer disease Mother Alzheimer disease Father Emphysema lung Social History Social History Years smoked: 10 Smoking status: Former smoker Tobacco type: cigarettes Smoking end date: 06/11/83 Alcohol intake: current Drinks per week: 1 Substance use: never Substance use type: does not use Do You Feel Safe in your Home?: Yes Lack of Transportation: No Lack of Food: Never True Current Housing: I Have Housing Concerned About Future Housing: No Difficulty Paying Gas/Electric Bills: No Difficulty Paying for Meds: No Currently Unemployed: No Education: Bachelor's Degree Difficulty w/ Childcare or Family Care: No Spiritual care concerns: No Meds Home Medications and Allergies Home Medications ?Medication ?Instructions ?Recorded ?Confirmed ?Type acetaminophen 325 mg tablet 325 mg PO DAILY 07/08/24 07/08/24 History aspirin 81 mg tablet,delayed 81 mg PO DAILY 07/08/24 07/08/24 History release atorvastatin 40 mg tablet 40 mg PO DAILY 07/08/24 07/08/24 History brexpiprazole 2 mg tablet (Rexulti) 2 mg PO DAILY 07/08/24 07/08/24 History cholecalciferol (vitamin D3) 25 2,000 unit PO DAILY 07/08/24 07/08/24 History mcg (1,000 unit) tablet donepezil 10 mg tablet 10 mg PO DAILY 07/08/24 07/08/24 History duloxetine 60 mg capsule,delayed 60 mg PO DAILY 07/08/24 07/08/24 History release gabapentin 300 mg capsule 300 mg PO Q12H 07/08/24 07/08/24 History memantine 10 mg tablet 10 mg PO BID 07/08/24 07/08/24 History raloxifene 60 mg tablet 60 mg PO DAILY 07/08/24 07/08/24 History tramadol 50 mg tablet 50 mg PO Q12H PRN shoulder pain 07/11/24 07/11/24 History amiodarone 200 mg tablet (Pacerone) 200 mg PO BID #30 tabs 07/14/24 Rx apixaban 5 mg tablet (Eliquis) 5 mg PO Q12HR #30 tabs 07/14/24 Rx metoprolol succinate 25 mg 12.5 mg (1/2 x 25 mg) PO EVERY 07/14/24 Rx tablet,extended release 24 hr OTHER DAY #30 tabs Allergies Allergy/AdvReac Type Severity Reaction Status Date / Time No Known Allergies Allergy Verified 07/08/24 03:24 Vital Signs Vital Signs Temp Pulse Resp BP Pulse Ox O2 Del Method 07/12/24 12:07 59 L 07/12/24 12:00 64 07/12/24 09:44 65 07/12/24 08:00 61 07/12/24 06:00 98.3 F 63 12 92/67 L 93 07/12/24 04:00 62 07/12/24 03:22 84/56 L 07/12/24 01:56 82/56 L 07/12/24 00:55 78/46 L 07/12/24 00:00 67 07/11/24 22:54 97.4 F L 79 18 88/58 L 90 07/11/24 21:35 20 98/65 L 94 07/11/24 20:00 68 18 93 Room Air Exam 2 Narrative: GENERAL APPEARANCE: elderly but well developed well nourished female in no acute distress HEENT: normocephalic, atraumatic, normal conjunctiva and sclera, nares patient NECK: no lymphadenopathy, thyromegaly, or JVD MOUTH: normal lips, teeth, and gums CARDIOVASCULAR: IRRR, normal S1 and S2, no rub RESPIRATORY: clear to auscultation bilaterally ABDOMEN: soft, nontender, nondistended, positive bowel sounds present EXTREMITIES: no evidence of cyanosis, clubbing, or edema NEUROLOGICAL: alert and oriented x 1 - 2; CN II - XII intact bilaterally; no focal deficits noted Results Lab Results 07/14/24 07:07 07/14/24 07:07 Lab results: Most recent lab results Calcium 8.3 mg/dL (8.4-10.2) L 07/12/24 11:46 Magnesium 2.2 mg/dL (1.6-2.3) 07/11/24 04:39 Urine Creatinine 144.9 mg/dL 07/12/24 12:04
[2024-07-12 12:27] LABS: Creatinine Urine 144.9 mg/dL; Total Protein Urine Random 6 mg/dL; Ur Ttl Prot Creatinine Ratio 0.04 mg/mg (0-0.20)
[2024-07-12 12:29] LABS: Urea Random Urine 844 MG/DL
[2024-07-12 12:35] LABS: Sodium Urine Random 8 meq/L
[2024-07-12 13:17] LABS: Eosinophil Urine Rare % (None Seen); Urine Eos QC 2nd Tech Confirmed
--- NOTE | 2024-07-12 15:38 | P.PNCA_ITS ---
Progress Note: A&P Assessment and Plan (1) Hypotension: Code(s): I95.9 - Hypotension, unspecified Status: Acute Assessment and Plan: Probably the combination of the medications and the fact that she was being d iuresed. I would totally discontinue the IV Lasix and agree with IV fluids At and the fact that her creatinine was going up was probably reflection of the diuresis. It should come down as her blood pressure comes up and as we replaced her fluids. (2) Atrial fibrillation: Code(s): I48.91 - Unspecified atrial fibrillation Status: Acute Assessment and Plan: Seems to be rate controlled and agree with anticoagulation. Aspirin can be discontinued and the amiodarone so that chcf if she gets cardioverted she may remain in sinus but she needs to follow-up with Dr. Jiménez (3) Arthritis: Code(s): M19.90 - Unspecified osteoarthritis, unspecified site Status: Acute Assessment and Plan: Per the hospitalist Time Spent With Patient Time: 30 Subjective Date/time seen: 07/12/24 15:38 Interval history: Patient is sleeping in bed. Discussed with 1 of her daughters in detail Review of Systems Constitutional: Comments: Has significant right shoulder pain when she wakes up Exam Const: Other: No acute distress Resp: Other: Clear to auscultation Cardio: Other: S1-S2 irregular Extrem: Other: No cyanosis clubbing or edema Objective Data Vital Signs Vital Signs: Vital Signs - 24 hr 07/11/24 20:00 07/11/24 21:35 07/11/24 22:54 Temperature 36.3 C L Pulse Rate 68 79 Respiratory Rate 18 20 18 Blood Pressure 98/65 L 88/58 L Pulse Oximetry 93 94 90 Oxygen Delivery Room Air 07/12/24 00:00 07/12/24 00:55 07/12/24 01:56 Temperature Pulse Rate 67 Respiratory Rate Blood Pressure 78/46 L 82/56 L Pulse Oximetry Oxygen Delivery 07/12/24 03:22 07/12/24 04:00 07/12/24 06:00 Temperature 36.8 C Pulse Rate 62 63 Respiratory Rate 12 Blood Pressure 84/56 L 92/67 L Pulse Oximetry 93 Oxygen Delivery 07/12/24 08:00 07/12/24 09:44 07/12/24 12:00 Temperature Pulse Rate 61 65 64 Respiratory Rate Blood Pressure Pulse Oximetry Oxygen Delivery 07/12/24 12:07 Temperature Pulse Rate 59 L Respiratory Rate Blood Pressure Pulse Oximetry Oxygen Delivery Intake/Output Intake/Output: Intake & Output 07/09/24 07/10/24 07/11/24 07/12/24 23:59 23:59 23:59 23:59 Intake Total 960.0 2790 1120 598 Output Total 2452 1650 1100 50 Balance -1492.0 1140 20 548 Meds/Results Medications: Active Medications Generic Name Dose Route Start Last Admin Trade Name Freq PRN Reason Stop Dose Admin Acetaminophen 650 mg 07/10/24 12:03 07/11/24 06:51 Acetaminophen 325 Mg Tablet PO 650 mg Q4H PRN Administration Mild Pain (1-3) or Fever Acetaminophen 325 mg 07/12/24 09:00 07/12/24 09:43 Acetaminophen 325 Mg Tablet PO 325 mg DAILY HASEEB Administration Amiodarone HCl 200 mg 07/09/24 09:00 07/12/24 09:44 Amiodarone Hcl 200 Mg Tablet PO 200 mg BID HASEEB Administration Apixaban 5 mg 07/09/24 09:00 07/12/24 09:44 Apixaban 5 Mg Tablet PO 5 mg Q12HR HASEEB Administration Aspirin 81 mg 07/11/24 09:00 07/12/24 09:44 Aspirin 81 Mg Enteric Tablet PO 81 mg DAILY HASEEB Administration Atorvastatin Calcium 40 mg 07/11/24 09:00 07/12/24 09:45 Atorvastatin 40 Mg Tablet PO 40 mg DAILY HASEEB Administration Benzonatate 200 mg 07/08/24 20:40 07/12/24 12:07 Benzonatate 100 Mg Capsule PO 200 mg TID HASEEB Administration Donepezil HCl 10 mg 07/12/24 09:00 07/12/24 09:44 Donepezil Hcl 10 Mg Tablet PO 10 mg DAILY HASEEB Administration Duloxetine HCl 60 mg 07/11/24 09:00 07/12/24 09:45 Duloxetine Hcl 60 Mg Capsule.Dr PO 60 mg DAILY HASEEB Administration Furosemide 40 mg 07/08/24 09:00 07/11/24 20:56 Furosemide Inj 40 Mg/4 Ml Vial IV PUSH 40 mg Q12HR HASEEB Administration Gabapentin 300 mg 07/10/24 21:00 07/12/24 09:44 Gabapentin 300 Mg Capsule PO 300 mg Q12H HASEEB Administration Sodium Chloride 1,000 mls @ 50 mls/hr 07/12/24 03:25 07/12/24 03:34 Normal Saline Iv IV CONT 07/12/24 23:24 100 mls/hr .Q20H ONE Administration Sodium Chloride 1,000 mls @ 50 mls/hr 07/12/24 08:43 Normal Saline Iv IV CONT 07/13/24 04:42 .Q20H ONE Magnesium Oxide 400 mg 07/09/24 09:00 07/12/24 09:44 Magnesium Oxide 400 Mg Tablet PO 400 mg BID HASEEB Administration Memantine 10 mg 07/10/24 21:00 07/12/24 09:44 Memantine 10 Mg Tablet PO 10 mg Q12HR HASEEB Administration Metoprolol Tartrate 25 mg 07/10/24 18:00 07/12/24 12:07 Metoprolol Tartrate 25 Mg Tablet PO 25 mg Q6HR HASEEB Administration Raloxifene HCl 60 mg 07/11/24 09:45 07/12/24 09:44 Raloxifene Hcl (*Chemo) 60 Mg Tablet PO 60 mg QAM HASEEB Administration Raloxifene HCl 60 mg 07/12/24 09:00 Raloxifene Hcl (*Chemo) 60 Mg Tablet PO DAILY HASEEB Sacubitril/Valsartan 1 tab 07/08/24 21:00 07/12/24 09:45 Sacubitril/Valsartan 24-26 Mg Tablet PO 1 tab Q12HR HASEEB Administration Tramadol HCl 50 mg 07/11/24 09:38 07/11/24 21:03 Tramadol Hcl (*Crx) 50 Mg Tablet PO 50 mg BID PRN Administration Pain Rated 4-6 Tramadol HCl 50 mg 07/11/24 12:06 Tramadol Hcl (*Crx) 50 Mg Tablet PO Q12H PRN shoulder pain Vitamin D 2,000 units 07/11/24 09:00 07/12/24 09:44 Cholecalciferol 1,000 Units Tablet PO 2,000 units DAILY HASEEB Administration Radiology Results: ITS Impressions Shoulder X-Ray 07/11/24 09:45 Impression: Advanced glenohumeral joint degenerative change. Chest X-Ray 07/12/24 14:11 IMPRESSION: Mild interstitial edema versus senescent change. Labs Labs: Laboratory Results - last 24 hr 07/12/24 07/12/24 07/12/24 01:21 11:11 11:46 Sodium 131 L 134 L Potassium 3.7 3.7 Chloride 100 101 Carbon Dioxide 29 32 H Anion Gap 2 L 1 L BUN 41 H D 39 H Creatinine 1.70 H 1.50 H Estim Creat Clear Calc 29 33 Estimated GFR 29 L 33 L Glucose 143 H 155 H Lactic Acid 1.2 Calcium 8.1 L 8.3 L Total Bilirubin 1.1 AST 17 ALT 13 Alkaline Phosphatase 87 Troponin I < 0.012 Total Protein 6.0 L Albumin 3.2 L Urine Color Yellow Urine Appearance Clear Urine pH 5.0 Ur Specific [place] 1.015 Urine Protein Negative Urine Glucose (UA) Negative Urine Ketones Negative Ur Blood (Man) Negative Urine Nitrate Negative Urine Bilirubin Negative Urine Urobilinogen 0.2 Leukocyte Esterase Rfl Trace H Urine RBC 0-2 Urine WBC 6-10 H Ur Squamous Epith Cells Few Urine Bacteria None seen Urine Casts 3-5 Urine Eosinophils U Random Total Protein Ur Random Sodium Ur Random Urea Urine Creatinine Protein/Creat Ratio 2 07/12/24 12:04 Sodium Potassium Chloride Carbon Dioxide Anion Gap BUN Creatinine Estim Creat Clear Calc Estimated GFR Glucose Lactic Acid Calcium Total Bilirubin AST ALT Alkaline Phosphatase Troponin I Total Protein Albumin Urine Color Urine Appearance Urine pH Ur Specific [place] Urine Protein Urine Glucose (UA) Urine Ketones Ur Blood (Man) Urine Nitrate Urine Bilirubin Urine Urobilinogen Leukocyte Esterase Rfl Urine RBC Urine WBC Ur Squamous Epith Cells Urine Bacteria Urine Casts Urine Eosinophils Rare U Random Total Protein 6 Ur Random Sodium 8 Ur Random Urea 844 Urine Creatinine 144.9 Protein/Creat Ratio 2 0.04
[2024-07-12] MEDS: SODIUM CHLORIDE 0.9% IV 1,000 ML 50 ML IV CONT (18:17)
[2024-07-12] MEDS: traMADol HCL (*CRX) 50 MG TABLET PO (20:36)
[2024-07-12] MEDS: METOPROLOL TARTRATE 25 MG TABLET PO (23:44)
[2024-07-13] VITALS (13 sets, daily range): BP systolic 88–114; BP diastolic 58–75; PULSE 51–84; RESP 16–18; TEMP 36–36.6; O2SAT 94–96
[2024-07-13] MEDS: METOPROLOL TARTRATE 25 MG TABLET PO (05:40)
[2024-07-13 07:10] LABS: Basophils Percent Auto 0.2 % (0.2-1.2); Hematocrit 40.4 % (37.0-47.0); Hemoglobin 12.8 g/dL (12.0-15.0); Immature Granulocyte Absolute 0.09 K/mm3 (0.00-0.031); Immature Granulocyte Percent A 0.5 % (0-0.5); Lymphocytes Absolute Auto 1.44 K/mm3 (0.9-3.2); Lymphocytes Percent Auto 7.9 % (18.3-44.2); Mean Corpuscular HGB Conc 31.7 g/dl (32-36); Mean Corpuscular Hemoglobin 29.8 pg (26-34); Mean Platelet Volume 11.3 fl (7.4-10.4); Monocytes Absolute Auto 0.9 K/mm3 (0.1-0.6); Monocytes Percent Auto 4.9 % (2.6-8.5); Neutrophils Absolute Auto 15.7 K/mm3 (1.3-6.7); Neutrophils Percent Auto 86.5 % (45.5-73.1); Platelet Count Result 218 k/mm3 (150-375); Red Cell Distribution Width 12.7 % (11.5-14.5); White Blood Count 18.2 K/mm3 (4.5-10.0)
[2024-07-13 07:21] LABS: Creatine Kinase 206 U/L (30-135)
[2024-07-13 07:23] LABS: Alanine Aminotransferase 16 U/L (6-35); Albumin Level 2.9 g/dL (3.5-5.1); Alkaline Phosphatase 84 U/L (38-126); Anion Gap 3 mmol/L (4-12); Aspartate Amino Transferase 27 U/L (14-36); Bilirubin,Total 0.7 mg/dL (0.2-1.3); Blood Urea Nitrogen 39 mg/dL (7-17); Calcium 8.1 mg/dL (8.4-10.2); Carbon Dioxide 25 mmol/L (22-30); Chloride 101 mmol/L (98-107); Estimated CRCL calculation 45 ml/min; Estimated Glomerular Filt Rate 48; Glucose 145 mg/dL (65-110); Sodium 129 mmol/L (137-145)
[2024-07-13] MEDS: CHOLECALCIFEROL 1,000 UNITS TABLET 2000 UNITS PO (09:20)
[2024-07-13] MEDS: DONEPEZIL HCL 10 MG TABLET PO (09:20)
[2024-07-13] MEDS: ATORVASTATIN 40 MG TABLET PO (09:20)
[2024-07-13] MEDS: DULoxetine HCL 60 MG CAPSULE.DR PO (09:21)
[2024-07-13] MEDS: AMIODARONE HCL 200 MG TABLET PO ×2 (09:21→18:27)
[2024-07-13] MEDS: MAGNESIUM OXIDE 400 MG TABLET PO ×2 (09:21→18:27)
[2024-07-13] MEDS: ASPIRIN 81 MG ENTERIC TABLET PO (09:21)
[2024-07-13] MEDS: MEMANTINE 10 MG TABLET PO ×2 (09:21→22:22)
[2024-07-13] MEDS: GABAPENTIN 300 MG CAPSULE PO ×2 (09:21→22:22)
[2024-07-13] MEDS: APIXABAN 5 MG TABLET PO ×2 (09:22→22:22)
[2024-07-13] MEDS: ACETAMINOPHEN 325 MG TABLET PO (09:22)
[2024-07-13] MEDS: RALOXIFENE HCL (*CHEMO) 60 MG TABLET PO (09:23)
--- NOTE | 2024-07-13 09:40 | PM.IMPN ---
Progress Note: A&P Assessment and Plan (1) Atrial fibrillation: Code(s): I48.91 - Unspecified atrial fibrillation Status: Acute Assessment and Plan: Patient is on Eliquis for anticoagulation, amiodarone for heart rate control. Will continue current treatment monitor closely Will hold off metoprolol and entresto . Cardiology on consult (2) Arthritis: Code(s): M19.90 - Unspecified osteoarthritis, unspecified site Status: Acute Assessment and Plan: Stable on current medication, continue current treatment. (3) Dementia: Code(s): F03.90 - Unspecified dementia, unspecified severity, without behavioral disturbance, psychotic disturbance, mood disturbance, and anxiety Status: Acute Assessment and Plan: Stable on current medication, continue current treatment. (4) Hypotension: Code(s): I95.9 - Hypotension, unspecified Status: Acute Assessment and Plan: Resolved. Blood pressure is 108/70. Will continue to hold metoprolol and entresto . Plan 07/13/2024 Case discussed with daughter in detail. She is in agreement with current plan of care and treatment. Most likely the episode of hypotension was secondary to metoprolol and entresto . Blood pressure is stable at present time. Bladder scan showed Patient had 350 cc urinary bladder. Dominguez was placed and left in for monitoring of input and output. Cardiology and Renal consult. Will follow labs. Afib with RVR, now rate controlled Continue Amiodarone 200mg bid, Eliquis 5mg bid [id number] score 4 ECHO reviewed, and TSH wnl Cardiology following Dementia A and O x2 appears to be at baseline Continue home meds HLD continue home meds DVT prophylaxis on Eliquis Patient and daughter stated they are going home with home health regardless of PT/OT recommendations ( no rehab or SNF). Subjective Date/time seen: 07/13/24 09:40 Interval history: Her BP is 93/58, heart rate 66, map 70. Patient recently had a new onset of AFib. Patient is on metoprolol 25 mg p.o. q.6 hours. Hold metoprolol due to low blood pressure. Patient is also on amiodarone 200 mg p.o. b.i.d.. Patient is on Entresto and advised to hold. Currently furosemide 40 mg is on hold. Echocardiogram performed on 07/10 shows left ventricular ejection fraction 50-55%, left ventricular diastolic function is abnormal. Her creatinine is getting improved. WBC 18.2 this is increased from 6.3 due to possible steroid. No evidence of infection. Ordered chest x-ray. Will repeat the WBC. Review of Systems Review of Systems: All other systems reviewed and negative except as noted in the history above. Exam Narrative: General: alert and comfortable Eyes: EOMI, PERRLA ENNT External ears normal, Neck is supple, no masses, Respiratory systems: Clear to auscultation Cardiovascular S1, S2, irregular rhythm, no murmur, rub, or gallop; no thrill or palpable murmurs on palpation. Gastrointestinal: soft, non-tender, and non-distended abdomen with no masses; BS present Skin: no rash, lesions, ulcerations, subcutaneous nodules or induration Musculoskeletal: no abnormality and no tenderness, normal ROM Neurologic: Alert and oriented x2, non focal Mental Status Exam: normal affect Objective Data Vital Signs Vital Signs: Vital Signs - 24 hr 07/12/24 09:44 07/12/24 12:00 07/12/24 12:00 Temperature 96.8 F L Pulse Rate 65 64 70 Respiratory Rate 20 Blood Pressure 108/64 Pulse Oximetry 93 Oxygen Delivery 07/12/24 16:00 07/12/24 16:00 07/12/24 16:51 Temperature 96.2 F L Pulse Rate 81 85 64 Respiratory Rate 20 Blood Pressure 104/82 Pulse Oximetry 90 Oxygen Delivery 07/12/24 20:00 07/12/24 20:00 07/12/24 20:24 Temperature 97.4 F L Pulse Rate 84 99 Respiratory Rate 18 Blood Pressure 101/59 L Pulse Oximetry 92 Oxygen Delivery Room Air 07/12/24 23:18 07/12/24 23:44 07/13/24 00:00 Temperature 97.7 F Pulse Rate 76 76 84 Respiratory Rate 18 Blood Pressure 112/61 Pulse Oximetry 94 Oxygen Delivery 07/13/24 03:03 07/13/24 04:00 07/13/24 04:14 Temperature 97.0 F L Pulse Rate 66 57 L Respiratory Rate 16 Blood Pressure 88/60 L 114/68 Pulse Oximetry 95 Oxygen Delivery 07/13/24 05:40 07/13/24 08:00 07/13/24 09:21 Temperature 96.8 F L Pulse Rate 57 L 66 66 Respiratory Rate 18 Blood Pressure 93/58 L Pulse Oximetry 96 Oxygen Delivery Intake/Output Intake/Output: Intake & Output 07/10/24 07/11/24 07/12/24 07/13/24 23:59 23:59 23:59 23:59 Intake Total 2790 1120 1618 550 Output Total 1650 1100 50 1150 Balance 1140 20 1568 -600 Meds/Results Medications: Active Medications Generic Name Dose Route Start Last Admin Trade Name Freq PRN Reason Stop Dose Admin Acetaminophen 650 mg 07/10/24 12:03 07/11/24 06:51 Acetaminophen 325 Mg Tablet PO 650 mg Q4H PRN Administration Mild Pain (1-3) or Fever Acetaminophen 325 mg 07/12/24 09:00 07/13/24 09:22 Acetaminophen 325 Mg Tablet PO 325 mg DAILY HASEEB Administration Amiodarone HCl 200 mg 07/09/24 09:00 07/13/24 09:21 Amiodarone Hcl 200 Mg Tablet PO 200 mg BID HASEEB Administration Apixaban 5 mg 07/09/24 09:00 07/13/24 09:22 Apixaban 5 Mg Tablet PO 5 mg Q12HR HASEEB Administration Aspirin 81 mg 07/11/24 09:00 07/13/24 09:21 Aspirin 81 Mg Enteric Tablet PO 81 mg DAILY HASEEB Administration Atorvastatin Calcium 40 mg 07/11/24 09:00 07/13/24 09:20 Atorvastatin 40 Mg Tablet PO 40 mg DAILY HASEEB Administration Benzonatate 200 mg 07/12/24 18:38 Benzonatate 100 Mg Capsule PO TID PRN Cough Donepezil HCl 10 mg 07/12/24 09:00 07/13/24 09:20 Donepezil Hcl 10 Mg Tablet PO 10 mg DAILY HASEEB Administration Duloxetine HCl 60 mg 07/11/24 09:00 07/13/24 09:21 Duloxetine Hcl 60 Mg Capsule.Dr PO 60 mg DAILY HASEEB Administration Furosemide 40 mg 07/08/24 09:00 07/11/24 20:56 Furosemide Inj 40 Mg/4 Ml Vial IV PUSH 40 mg Q12HR HASEEB Administration Gabapentin 300 mg 07/10/24 21:00 07/13/24 09:21 Gabapentin 300 Mg Capsule PO 300 mg Q12H HASEEB Administration Magnesium Oxide 400 mg 07/09/24 09:00 07/13/24 09:21 Magnesium Oxide 400 Mg Tablet PO 400 mg BID HASEEB Administration Memantine 10 mg 07/10/24 21:00 07/13/24 09:21 Memantine 10 Mg Tablet PO 10 mg Q12HR HASEEB Administration Metoprolol Tartrate 25 mg 07/10/24 18:00 07/13/24 05:40 Metoprolol Tartrate 25 Mg Tablet PO 25 mg Q6HR HASEEB Administration Raloxifene HCl 60 mg 07/12/24 09:00 07/13/24 09:23 Raloxifene Hcl (*Chemo) 60 Mg Tablet PO 60 mg DAILY HASEEB Administration Sacubitril/Valsartan 1 tab 07/08/24 21:00 07/12/24 21:35 Sacubitril/Valsartan 24-26 Mg Tablet PO 1 tab Q12HR HASEEB Administration Tramadol HCl 50 mg 07/11/24 12:06 07/12/24 20:36 Tramadol Hcl (*Crx) 50 Mg Tablet PO 50 mg Q12H PRN Administration shoulder pain Vitamin D 2,000 units 07/11/24 09:00 07/13/24 09:20 Cholecalciferol 1,000 Units Tablet PO 2,000 units DAILY HASEEB Administration Radiology Results: ITS Impressions Shoulder X-Ray 07/11/24 09:45 Impression: Advanced glenohumeral joint degenerative change. Chest X-Ray 07/12/24 14:11 IMPRESSION: Mild interstitial edema versus senescent change. Labs Labs: Laboratory Results - last 24 hr 07/12/24 07/12/24 07/12/24 11:11 11:46 12:04 WBC RBC Hgb Hct MCV MCH MCHC RDW Plt Count MPV Immature Gran % (Auto) Neut % (Auto) Lymph % (Auto) [place] % (Auto) Eos % (Auto) Baso % (Auto) Lymph # (Auto) [place] # (Auto) Eos # (Auto) Baso # (Auto) Abs Immat Gran (auto) Absolute Neuts (auto) Absolute Nucleated RBC Nucleated RBC % Sodium 134 L Potassium 3.7 Chloride 101 Carbon Dioxide 32 H Anion Gap 1 L BUN 39 H Creatinine 1.50 H Estim Creat Clear Calc 33 Estimated GFR 33 L Glucose 155 H Calcium 8.3 L Total Bilirubin AST ALT Alkaline Phosphatase Total Creatine Kinase Total Protein Albumin Urine Color Yellow Urine Appearance Clear Urine pH 5.0 Ur Specific [place] 1.015 Urine Protein Negative Urine Glucose (UA) Negative Urine Ketones Negative Ur Blood (Man) Negative Urine Nitrate Negative Urine Bilirubin Negative Urine Urobilinogen 0.2 Leukocyte Esterase Rfl Trace H Urine RBC 0-2 Urine WBC 6-10 H Ur Squamous Epith Cells Few Urine Bacteria None seen Urine Casts 3-5 Urine Eosinophils Rare U Random Total Protein 6 Ur Random Sodium 8 Ur Random Urea 844 Urine Creatinine 144.9 Protein/Creat Ratio 2 0.04 07/13/24 07/13/24 06:10 06:11 WBC 18.2 H RBC 4.30 Hgb 12.8 Hct 40.4 MCV 94.0 MCH 29.8 MCHC 31.7 L RDW 12.7 Plt Count 218 MPV 11.3 H Immature Gran % (Auto) 0.5 Neut % (Auto) 86.5 H Lymph % (Auto) 7.9 L [place] % (Auto) 4.9 Eos % (Auto) 0.0 Baso % (Auto) 0.2 Lymph # (Auto) 1.44 [place] # (Auto) 0.9 H Eos # (Auto) 0.0 Baso # (Auto) 0.0 Abs Immat Gran (auto) 0.09 H Absolute Neuts (auto) 15.7 H Absolute Nucleated RBC 0.000 Nucleated RBC % 0.0 Sodium 129 L Potassium 4.0 Chloride 101 Carbon Dioxide 25 Anion Gap 3 L BUN 39 H Creatinine 1.10 H Estim Creat Clear Calc 45 Estimated GFR 48 L Glucose 145 H Calcium 8.1 L Total Bilirubin 0.7 AST 27 ALT 16 Alkaline Phosphatase 84 Total Creatine Kinase 206 H Total Protein 6.0 L Albumin 2.9 L Urine Color Urine Appearance Urine pH Ur Specific [place] Urine Protein Urine Glucose (UA) Urine Ketones Ur Blood (Man) Urine Nitrate Urine Bilirubin Urine Urobilinogen Leukocyte Esterase Rfl Urine RBC Urine WBC Ur Squamous Epith Cells Urine Bacteria Urine Casts Urine Eosinophils U Random Total Protein Ur Random Sodium Ur Random Urea Urine Creatinine Protein/Creat Ratio 2 Hospitalist MIPS Advance Care Plan I have confirmed that the patient's Advanced Care Plan is present, code status is documented, or surrogate decision maker is listed in patient medical record.: Yes Medication Reconciliation I have utilized all available resources to obtain, update and review the patients current medications (includes all prescriptions, OTC, herbals, cannabis, and nutritional supplements).: Yes
--- NOTE | 2024-07-13 13:40 | P.PNNP_ITS ---
Progress Note: A&P Assessment and Plan (1) JOSÉ MIGUEL (acute kidney injury): Code(s): N17.9 - Acute kidney failure, unspecified Status: Acute Assessment and Plan: * improvement noted * as noted by labs done earlier today (creatinine of 1.7mg/dl) * mild improvement already noted - repeat creatinine 1.5mg/dl * normal creatinine at baseline * suspect related to hypotension, Entresto use, diuretic therapy and possible atrial fibrillation * evaluation to date noted: * urine electrolytes prerenal * rare urine eosinophils * UA without evidence of infection * CPK elevated but now enough to affect kidney function * s/p trial of IVFs * follow trend of repeat labs and UOP (2) Hypotension: Code(s): I95.9 - Hypotension, unspecified Status: Acute Assessment and Plan: * appears to be doing better * BP medications on hold * s/p trial of IVFs * follow trend of hemodynamics (3) Atrial fibrillation: Code(s): I48.91 - Unspecified atrial fibrillation Status: Acute Assessment and Plan: * Cardiology following * on anticoagulation * continue rate control strategy within the limits of hemodynamics (4) Dementia: Code(s): F03.90 - Unspecified dementia, unspecified severity, without behavioral disturbance, psychotic disturbance, mood disturbance, and anxiety Status: Chronic Assessment and Plan: * chronic issues * continue current medications/treatment Will continue to follow. L Subjective Date/time seen: 07/13/24 13:40 Interval history: Follow-up for acute kidney injury/acute renal failure. Renal function/creatinine appears to have improved with current therapy/interventions (backing off on BP medications; optimizing hemodynamics, holding diuretics, and trial of IVFs); no other issues or events noted; no apparent distress voiced at the time of my visit. Exam 2 Narrative: General: elderly but WD/WN female in NAD Heart: IRRR, normal S1 and S2; no rub Lungs: clear to auscultation Abdomen: soft, nontender, nondistended, positive bowel sounds Extremities: no cyanosis or clubbing; no edema Skin: warm and dry Objective Data Vital Signs Vital Signs: Vital Signs Temp Pulse Resp BP Pulse Ox O2 Del Method 07/13/24 12:00 97.5 F L 51 L 18 98/62 L 96 07/13/24 09:21 66 07/13/24 08:00 63 07/13/24 08:00 96.8 F L 66 18 93/58 L 96 07/13/24 05:40 57 L 07/13/24 04:14 114/68 07/13/24 04:00 57 L 07/13/24 03:03 97.0 F L 66 16 88/60 L 95 07/13/24 00:00 84 07/12/24 23:44 76 07/12/24 23:18 97.7 F 76 18 112/61 94 07/12/24 20:24 Room Air 07/12/24 20:00 99 07/12/24 20:00 97.4 F L 84 18 101/59 L 92 Intake/Output Intake/Output: Intake & Output 07/10/24 07/11/24 07/12/24 07/13/24 23:59 23:59 23:59 23:59 Intake Total 2790 1120 1618 1030 Output Total 1650 1100 50 2300 Balance 1140 20 1568 -1270 Meds/Results Medications: Active Medications Generic Name Dose Route Start Last Admin Trade Name Freq PRN Reason Stop Dose Admin Acetaminophen 650 mg 07/10/24 12:03 07/11/24 06:51 Acetaminophen 325 Mg Tablet PO 650 mg Q4H PRN Administration Mild Pain (1-3) or Fever Acetaminophen 325 mg 07/12/24 09:00 07/13/24 09:22 Acetaminophen 325 Mg Tablet PO 325 mg DAILY HASEEB Administration Amiodarone HCl 200 mg 07/09/24 09:00 07/13/24 09:21 Amiodarone Hcl 200 Mg Tablet PO 200 mg BID HASEEB Administration Apixaban 5 mg 07/09/24 09:00 07/13/24 09:22 Apixaban 5 Mg Tablet PO 5 mg Q12HR HASEEB Administration Aspirin 81 mg 07/11/24 09:00 07/13/24 09:21 Aspirin 81 Mg Enteric Tablet PO 81 mg DAILY HASEEB Administration Atorvastatin Calcium 40 mg 07/11/24 09:00 07/13/24 09:20 Atorvastatin 40 Mg Tablet PO 40 mg DAILY HASEEB Administration Benzonatate 200 mg 07/12/24 18:38 Benzonatate 100 Mg Capsule PO TID PRN Cough Donepezil HCl 10 mg 07/12/24 09:00 07/13/24 09:20 Donepezil Hcl 10 Mg Tablet PO 10 mg DAILY HASEEB Administration Duloxetine HCl 60 mg 07/11/24 09:00 07/13/24 09:21 Duloxetine Hcl 60 Mg Capsule.Dr PO 60 mg DAILY HASEEB Administration Furosemide 40 mg 07/08/24 09:00 07/11/24 20:56 Furosemide Inj 40 Mg/4 Ml Vial IV PUSH 40 mg Q12HR HASEEB Administration Gabapentin 300 mg 07/10/24 21:00 07/13/24 09:21 Gabapentin 300 Mg Capsule PO 300 mg Q12H HASEEB Administration Magnesium Oxide 400 mg 07/09/24 09:00 07/13/24 09:21 Magnesium Oxide 400 Mg Tablet PO 400 mg BID HASEEB Administration Memantine 10 mg 07/10/24 21:00 07/13/24 09:21 Memantine 10 Mg Tablet PO 10 mg Q12HR HASEEB Administration Metoprolol Tartrate 25 mg 07/10/24 18:00 07/13/24 13:31 Metoprolol Tartrate 25 Mg Tablet PO Not Given Q6HR [facility] Raloxifene HCl 60 mg 07/12/24 09:00 07/13/24 09:23 Raloxifene Hcl (*Chemo) 60 Mg Tablet PO 60 mg DAILY HASEEB Administration Sacubitril/Valsartan 1 tab 07/08/24 21:00 07/12/24 21:35 Sacubitril/Valsartan 24-26 Mg Tablet PO 1 tab Q12HR HASEEB Administration Tramadol HCl 50 mg 07/11/24 12:06 07/12/24 20:36 Tramadol Hcl (*Crx) 50 Mg Tablet PO 50 mg Q12H PRN Administration shoulder pain Vitamin D 2,000 units 07/11/24 09:00 07/13/24 09:20 Cholecalciferol 1,000 Units Tablet PO 2,000 units DAILY HASEEB Administration Radiology Results: ITS Impressions Shoulder X-Ray 07/11/24 09:45 Impression: Advanced glenohumeral joint degenerative change. Chest X-Ray 07/13/24 10:48 IMPRESSION: 1. No acute cardiopulmonary disease. Labs Labs: Laboratory Tests 07/13/24 06:10 07/13/24 06:11 Calcium 8.1 L Total Bilirubin 0.7 AST 27 ALT 16 Alkaline Phosphatase 84 Total Creatine Kinase 206 H Total Protein 6.0 L Albumin 2.9 L Microbiology 07/12/24 01:21 Blood Blood Culture - Preliminary 07/12/24 01:21 Blood Blood Culture - Preliminary
--- NOTE | 2024-07-13 14:04 | PM.PNCARD ---
Progress Note: A&P Assessment and Plan (1) Atrial fibrillation: Code(s): I48.91 - Unspecified atrial fibrillation Status: Acute Assessment and Plan: pt is on amio and eliquis 5mg bid pt is on amio 200mg bid (if there is persistent bradycardia can reduce to 200mg daily) reviewed with RN and pts Daugher doubt she will be able to tolerate metoprolol w/ bp in the 100's suspect it will increase risk for falling would hold BB she will need oupt tele montior request hospitalist to arrange here from discharge need to follow for possible need for PPM if she has tachybrady or symptomatic bradycardia (2) Dementia: Code(s): F03.90 - Unspecified dementia, unspecified severity, without behavioral disturbance, psychotic disturbance, mood disturbance, and anxiety Status: Acute Assessment and Plan: Reviewed with daughter who notes that pt is otheriwise doing ok has issues with dementia however pt appears quite functional (3) Hypotension: Code(s): I95.9 - Hypotension, unspecified Status: Acute Assessment and Plan: Reviewed with hospitalist and RN RN mentioned that entresto was held this am and no additional metoprolol was given today ok to hold off on giving entresto and lopressor additionally LVEF was preserved on echo which was done this admission her bp runs lowish and may not be safe for her to be on these meds increased risk for falling with hypotension and bradycardia Plan Probably the combination of the medications and the fact that she was being diuresed have contributed to the lower bp Ok to hold metoprolol and entresto follow bp and lytes plan for outpt tele monitor Subjective Date/time seen: 07/13/24 14:04 Interval history: Pt is comfortable in bed with daughter at bedside. No new issues w/ cp or sob pt remains in afib controlled VR on amio and eliquis Exam Const: General: comfortable, no acute distress and awake HENMT: Head: normal to inspection Resp: Auscultation: clear to auscultation bilaterally, diminished lung sounds (bases bilaterally) and other (no wheezes or rhonchi ) Cardio: Other: S1 S2 bradycardic rate with irreg rhythm Afib on tele rate 50-60 Extrem: Other: no significant bilateral lower ext edema Objective Data Vital Signs Vital Signs: Vital Signs - 24 hr 07/12/24 16:00 07/12/24 16:00 07/12/24 16:51 Temperature 35.7 C L Pulse Rate 81 85 64 Respiratory Rate 20 Blood Pressure 104/82 Pulse Oximetry 90 Oxygen Delivery 07/12/24 20:00 07/12/24 20:00 07/12/24 20:24 Temperature 36.3 C L Pulse Rate 84 99 Respiratory Rate 18 Blood Pressure 101/59 L Pulse Oximetry 92 Oxygen Delivery Room Air 07/12/24 23:18 07/12/24 23:44 07/13/24 00:00 Temperature 36.5 C Pulse Rate 76 76 84 Respiratory Rate 18 Blood Pressure 112/61 Pulse Oximetry 94 Oxygen Delivery 07/13/24 03:03 07/13/24 04:00 07/13/24 04:14 Temperature 36.1 C L Pulse Rate 66 57 L Respiratory Rate 16 Blood Pressure 88/60 L 114/68 Pulse Oximetry 95 Oxygen Delivery 07/13/24 05:40 07/13/24 08:00 07/13/24 09:21 Temperature 36.0 C L Pulse Rate 57 L 66 66 Respiratory Rate 18 Blood Pressure 93/58 L Pulse Oximetry 96 Oxygen Delivery 07/13/24 12:00 Temperature 36.4 C L Pulse Rate 51 L Respiratory Rate 18 Blood Pressure 98/62 L Pulse Oximetry 96 Oxygen Delivery Intake/Output Intake/Output: Intake & Output 07/10/24 07/11/24 07/12/24 07/13/24 23:59 23:59 23:59 23:59 Intake Total 2790 1120 1618 790 Output Total 1650 1100 50 1150 Balance 1140 20 1568 -360 Meds/Results Medications: Active Medications Generic Name Dose Route Start Last Admin Trade Name Freq PRN Reason Stop Dose Admin Acetaminophen 650 mg 07/10/24 12:03 07/11/24 06:51 Acetaminophen 325 Mg Tablet PO 650 mg Q4H PRN Administration Mild Pain (1-3) or Fever Acetaminophen 325 mg 07/12/24 09:00 07/13/24 09:22 Acetaminophen 325 Mg Tablet PO 325 mg DAILY HASEEB Administration Amiodarone HCl 200 mg 07/09/24 09:00 07/13/24 09:21 Amiodarone Hcl 200 Mg Tablet PO 200 mg BID HASEEB Administration Apixaban 5 mg 07/09/24 09:00 07/13/24 09:22 Apixaban 5 Mg Tablet PO 5 mg Q12HR HASEEB Administration Aspirin 81 mg 07/11/24 09:00 07/13/24 09:21 Aspirin 81 Mg Enteric Tablet PO 81 mg DAILY HASEEB Administration Atorvastatin Calcium 40 mg 07/11/24 09:00 07/13/24 09:20 Atorvastatin 40 Mg Tablet PO 40 mg DAILY HASEEB Administration Benzonatate 200 mg 07/12/24 18:38 Benzonatate 100 Mg Capsule PO TID PRN Cough Donepezil HCl 10 mg 07/12/24 09:00 07/13/24 09:20 Donepezil Hcl 10 Mg Tablet PO 10 mg DAILY HASEEB Administration Duloxetine HCl 60 mg 07/11/24 09:00 07/13/24 09:21 Duloxetine Hcl 60 Mg Capsule.Dr PO 60 mg DAILY HASEEB Administration Furosemide 40 mg 07/08/24 09:00 07/11/24 20:56 Furosemide Inj 40 Mg/4 Ml Vial IV PUSH 40 mg Q12HR HASEEB Administration Gabapentin 300 mg 07/10/24 21:00 07/13/24 09:21 Gabapentin 300 Mg Capsule PO 300 mg Q12H HASEEB Administration Magnesium Oxide 400 mg 07/09/24 09:00 07/13/24 09:21 Magnesium Oxide 400 Mg Tablet PO 400 mg BID HASEEB Administration Memantine 10 mg 07/10/24 21:00 07/13/24 09:21 Memantine 10 Mg Tablet PO 10 mg Q12HR HASEEB Administration Metoprolol Tartrate 25 mg 07/10/24 18:00 07/13/24 13:31 Metoprolol Tartrate 25 Mg Tablet PO Not Given Q6HR HASEEB Raloxifene HCl 60 mg 07/12/24 09:00 07/13/24 09:23 Raloxifene Hcl (*Chemo) 60 Mg Tablet PO 60 mg DAILY HASEEB Administration Sacubitril/Valsartan 1 tab 07/08/24 21:00 07/12/24 21:35 Sacubitril/Valsartan 24-26 Mg Tablet PO 1 tab Q12HR HASEEB Administration Tramadol HCl 50 mg 07/11/24 12:06 07/12/24 20:36 Tramadol Hcl (*Crx) 50 Mg Tablet PO 50 mg Q12H PRN Administration shoulder pain Vitamin D 2,000 units 07/11/24 09:00 07/13/24 09:20 Cholecalciferol 1,000 Units Tablet PO 2,000 units DAILY HASEEB Administration Radiology Results: ITS Impressions Shoulder X-Ray 07/11/24 09:45 Impression: Advanced glenohumeral joint degenerative change. Chest X-Ray 07/13/24 10:48 IMPRESSION: 1. No acute cardiopulmonary disease. Labs Labs: Laboratory Results - last 24 hr 07/13/24 07/13/24 06:10 06:11 WBC 18.2 H RBC 4.30 Hgb 12.8 Hct 40.4 MCV 94.0 MCH 29.8 MCHC 31.7 L RDW 12.7 Plt Count 218 MPV 11.3 H Immature Gran % (Auto) 0.5 Neut % (Auto) 86.5 H Lymph % (Auto) 7.9 L [place] % (Auto) 4.9 Eos % (Auto) 0.0 Baso % (Auto) 0.2 Lymph # (Auto) 1.44 [place] # (Auto) 0.9 H Eos # (Auto) 0.0 Baso # (Auto) 0.0 Abs Immat Gran (auto) 0.09 H Absolute Neuts (auto) 15.7 H Absolute Nucleated RBC 0.000 Nucleated RBC % 0.0 Sodium 129 L Potassium 4.0 Chloride 101 Carbon Dioxide 25 Anion Gap 3 L BUN 39 H Creatinine 1.10 H Estim Creat Clear Calc 45 Estimated GFR 48 L Glucose 145 H Calcium 8.1 L Total Bilirubin 0.7 AST 27 ALT 16 Alkaline Phosphatase 84 Total Creatine Kinase 206 H Total Protein 6.0 L Albumin 2.9 L Imaging Radiologist's impression: ECHO REPORT Summary 1. Left ventricular chamber dimension is mildly enlarged. 2. Left ventricular systolic function is normal, estimated at 50-55%. 3. There is mildly increased left ventricular wall thickness. 4. The left ventricular diastolic function is abnormal. 5. Left atrial chamber dimension is mildly enlarged. 6. There is trace mitral valve regurgitation.
[2024-07-14] VITALS (7 sets, daily range): BP systolic 102–120; BP diastolic 65–79; PULSE 59–88; RESP 18–20; TEMP 36.2–36.6; O2SAT 95–96
[2024-07-14] MEDS: SODIUM CHLORIDE 0.9% IV 250 ML 50 ML IV CONT (06:29)
[2024-07-14 08:10] LABS: Basophils Absolute Auto 0.1 K/mm3 (0.0-0.1); Basophils Percent Auto 0.9 % (0.2-1.2); Eosinophils Absolute Auto 0.1 K/mm3 (0-0.3); Eosinophils Percent Auto 1.6 % (0-4.4); Hematocrit 38.5 % (37.0-47.0); Hemoglobin 12.4 g/dL (12.0-15.0); Immature Granulocyte Absolute 0.05 K/mm3 (0.00-0.031); Immature Granulocyte Percent A 0.6 % (0-0.5); Lymphocytes Absolute Auto 2.19 K/mm3 (0.9-3.2); Lymphocytes Percent Auto 27.4 % (18.3-44.2); Mean Corpuscular HGB Conc 32.2 g/dl (32-36); Mean Corpuscular Hemoglobin 29.5 pg (26-34); Mean Corpuscular Volume 91.4 fl (80-100); Monocytes Absolute Auto 0.8 K/mm3 (0.1-0.6); Monocytes Percent Auto 9.4 % (2.6-8.5); Neutrophils Absolute Auto 4.8 K/mm3 (1.3-6.7); Neutrophils Percent Auto 60.1 % (45.5-73.1); Platelet Count Result 227 k/mm3 (150-375); Red Blood Count 4.21 M/mm3 (4.2-5.4); Red Cell Distribution Width 12.7 % (11.5-14.5)
[2024-07-14 08:29] LABS: Alanine Aminotransferase 34 U/L (6-35); Albumin Level 2.7 g/dL (3.5-5.1); Alkaline Phosphatase 79 U/L (38-126); Anion Gap -2 mmol/L (4-12); Aspartate Amino Transferase 39 U/L (14-36); Bilirubin,Total 0.7 mg/dL (0.2-1.3); Blood Urea Nitrogen 37 mg/dL (7-17); Calcium 8.1 mg/dL (8.4-10.2); Carbon Dioxide 30 mmol/L (22-30); Chloride 104 mmol/L (98-107); Estimated CRCL calculation 49 ml/min; Estimated Glomerular Filt Rate 53; Glucose 104 mg/dL (65-110); Potassium 3.9 mmol/L (3.4-5.0); Sodium 132 mmol/L (137-145)
[2024-07-14] MEDS: CHOLECALCIFEROL 1,000 UNITS TABLET 2000 UNITS PO (09:17)
[2024-07-14] MEDS: AMIODARONE HCL 200 MG TABLET PO ×2 (09:18→17:23)
[2024-07-14] MEDS: APIXABAN 5 MG TABLET PO (09:18)
[2024-07-14] MEDS: ACETAMINOPHEN 325 MG TABLET PO (09:18)
[2024-07-14] MEDS: ASPIRIN 81 MG ENTERIC TABLET PO (09:18)
[2024-07-14] MEDS: GABAPENTIN 300 MG CAPSULE PO (09:18)
[2024-07-14] MEDS: DONEPEZIL HCL 10 MG TABLET PO (09:18)
[2024-07-14] MEDS: RALOXIFENE HCL (*CHEMO) 60 MG TABLET PO (09:18)
[2024-07-14] MEDS: ATORVASTATIN 40 MG TABLET PO (09:18)
[2024-07-14] MEDS: MEMANTINE 10 MG TABLET PO (09:19)
[2024-07-14] MEDS: DULoxetine HCL 60 MG CAPSULE.DR PO (09:19)
[2024-07-14] MEDS: MAGNESIUM OXIDE 400 MG TABLET PO ×2 (09:19→17:23)
--- NOTE | 2024-07-14 12:08 | PM.PNNEP ---
Progress Note: A&P Assessment and Plan (1) JOSÉ MIGUEL (acute kidney injury): Code(s): N17.9 - Acute kidney failure, unspecified Status: Acute Assessment and Plan: improvement noted as noted by labs done earlier today (creatinine of 1.7mg/dl) mild improvement already noted - repeat creatinine 1.5mg/dl normal creatinine at baseline suspect related to hypotension, Entresto use, diuretic therapy and possible atrial fibrillation evaluation to date noted: urine electrolytes prerenal rare urine eosinophils UA without evidence of infection CPK elevated but now enough to affect kidney function s/p trial of IVFs follow trend of repeat labs and UOP (2) Hypotension: Code(s): I95.9 - Hypotension, unspecified Status: Acute Assessment and Plan: appears to be doing better BP medications on hold s/p trial of IVFs follow trend of hemodynamics (3) Atrial fibrillation: Code(s): I48.91 - Unspecified atrial fibrillation Status: Acute Assessment and Plan: Cardiology following on anticoagulation continue rate control strategy within the limits of hemodynamics (4) Dementia: Code(s): F03.90 - Unspecified dementia, unspecified severity, without behavioral disturbance, psychotic disturbance, mood disturbance, and anxiety Status: Chronic Assessment and Plan: chronic issues continue current medications/treatment Will continue to follow. Subjective Date/time seen: 07/14/24 12:08 Interval history: Follow-up for acute kidney injury/acute renal failure. Renal function/creatinine appears to have stabilized if not returned close to baseline with current therapy/interventions; BP seems to be doing better as well; no apparent distress noted; no other events to report. Exam Narrative: General: elderly but WD/WN female in NAD Heart: IRRR, normal S1 and S2; no rub Lungs: clear to auscultation Abdomen: soft, nontender, nondistended, positive bowel sounds Extremities: no cyanosis or clubbing; no edema Skin: warm and intact Objective Data Vital Signs Vital Signs: Vital Signs Temp Pulse Resp BP Pulse Ox O2 Del Method 07/14/24 12:00 97.6 F 88 18 120/77 96 07/14/24 12:00 69 07/14/24 09:18 68 07/14/24 08:00 97.6 F 59 L 20 115/72 96 07/14/24 08:00 60 07/14/24 04:00 62 07/14/24 04:00 97.1 F L 69 20 118/79 95 07/14/24 00:00 62 07/13/24 23:54 97.9 F 63 16 100/75 94 07/13/24 20:00 68 07/13/24 20:00 97.7 F 68 18 99/64 L 94 07/13/24 18:27 68 Intake/Output Intake/Output: Intake & Output 07/11/24 07/12/24 07/13/24 07/14/24 23:59 23:59 23:59 23:59 Intake Total 1120 1618 1270 786 Output Total 1100 50 2300 2100 Balance 20 6133 -0120 -4368 Meds/Results Medications: Active Medications Generic Name Dose Route Start Last Admin Trade Name Freq PRN Reason Stop Dose Admin Acetaminophen 650 mg 07/10/24 12:03 07/11/24 06:51 Acetaminophen 325 Mg Tablet PO 650 mg Q4H PRN Administration Mild Pain (1-3) or Fever Acetaminophen 325 mg 07/12/24 09:00 07/14/24 09:18 Acetaminophen 325 Mg Tablet PO 325 mg DAILY HASEEB Administration Amiodarone HCl 200 mg 07/09/24 09:00 07/14/24 09:18 Amiodarone Hcl 200 Mg Tablet PO 200 mg BID HASEEB Administration Apixaban 5 mg 07/09/24 09:00 07/14/24 09:18 Apixaban 5 Mg Tablet PO 5 mg Q12HR HASEEB Administration Aspirin 81 mg 07/11/24 09:00 07/14/24 09:18 Aspirin 81 Mg Enteric Tablet PO 81 mg DAILY HASEEB Administration Atorvastatin Calcium 40 mg 07/11/24 09:00 07/14/24 09:18 Atorvastatin 40 Mg Tablet PO 40 mg DAILY HASEEB Administration Benzonatate 200 mg 07/12/24 18:38 Benzonatate 100 Mg Capsule PO TID PRN Cough Donepezil HCl 10 mg 07/12/24 09:00 07/14/24 09:18 Donepezil Hcl 10 Mg Tablet PO 10 mg DAILY HASEEB Administration Duloxetine HCl 60 mg 07/11/24 09:00 07/14/24 09:19 Duloxetine Hcl 60 Mg Capsule.Dr PO 60 mg DAILY HASEEB Administration Furosemide 40 mg 07/08/24 09:00 07/11/24 20:56 Furosemide Inj 40 Mg/4 Ml Vial IV PUSH 40 mg Q12HR HASEEB Administration Gabapentin 300 mg 07/10/24 21:00 07/14/24 09:18 Gabapentin 300 Mg Capsule PO 300 mg Q12H HASEEB Administration Magnesium Oxide 400 mg 07/09/24 09:00 07/14/24 09:19 Magnesium Oxide 400 Mg Tablet PO 400 mg BID HASEEB Administration Memantine 10 mg 07/10/24 21:00 07/14/24 09:19 Memantine 10 Mg Tablet PO 10 mg Q12HR HASEEB Administration Metoprolol Succinate 12.5 mg 07/16/24 09:00 Metoprolol Succinate Ext Rel 12.5 Mg Tabcr PO Q48HR HASEEB Metoprolol Tartrate 25 mg 07/10/24 18:00 07/13/24 19:08 Metoprolol Tartrate 25 Mg Tablet PO Not Given Q6HR [facility] Raloxifene HCl 60 mg 07/12/24 09:00 07/14/24 09:18 Raloxifene Hcl (*Chemo) 60 Mg Tablet PO 60 mg DAILY HASEEB Administration Sacubitril/Valsartan 1 tab 07/08/24 21:00 07/13/24 18:27 Sacubitril/Valsartan 24-26 Mg Tablet PO Not Given Q12HR [facility] Tramadol HCl 50 mg 07/11/24 12:06 07/12/24 20:36 Tramadol Hcl (*Crx) 50 Mg Tablet PO 50 mg Q12H PRN Administration shoulder pain Vitamin D 2,000 units 07/11/24 09:00 07/14/24 09:17 Cholecalciferol 1,000 Units Tablet PO 2,000 units DAILY HASEEB Administration Radiology Results: ITS Impressions Shoulder X-Ray 07/11/24 09:45 Impression: Advanced glenohumeral joint degenerative change. Chest X-Ray 07/13/24 10:48 IMPRESSION: 1. No acute cardiopulmonary disease. Labs Labs: Laboratory Tests 07/14/24 07:07 07/14/24 07:07 Calcium 8.1 L Total Bilirubin 0.7 AST 39 H ALT 34 Alkaline Phosphatase 79 Total Protein 5.0 L Albumin 2.7 L
--- NOTE | 2024-07-14 14:39 | PCOTNOTE ---
Apoke with provider, who stated that pt. did not require reevaluation after ambulating 500 + ft earlier in day, with plans to d/c
--- NOTE | 2024-07-14 15:35 | PM.PNCARD ---
Progress Note: A&P Assessment and Plan (1) Atrial fibrillation: Code(s): I48.91 - Unspecified atrial fibrillation Status: Acute Assessment and Plan: Anticoagulation with eliquis 5mg bid pt is on amio 200mg bid (if there is persistent bradycardia can reduce to 200mg daily) I HAVE DISCUSSED WITH PATIENT'S DAUGHTER THAT IT BE OKAY FOR THEM TO BE DISCHARGED TODAY AND FOLLOW UP WITH DR. FRANCO OUTPATIENT TELE MONITOR CAN BE ARRANGED IDEALLY FOR 2 WEEKS I REVIEWED MEDICATIONS WITH PATIENT'S DAUGHTER WHO IS A NURSE PRACTITIONER PATIENT DOES REMAIN ON ELIQUIS FOR ANTICOAGULATION FOR ATRIAL FIBRILLATION IN THE EVENT THERE IS NAUSEA ON AMIODARONE 200 MG B.I.D SHE CAN SWITCH IT TO ONCE A DAY 200 MG DAILY I HAVE DISCUSSED WITH HER THAT SHE MAY DEVELOP A RAPID HEART RATE CONTINUE OKAY TO USE METOPROLOL ER PLEASE GIVE HER PRESCRIPTION FOR METOPROLOL ER 12.5 MG EVERY OTHER DAY THE PATIENT WAS DEMONSTRATING SENSITIVITY TO BETA LINDA WE ALSO DISCUSSED THE POSSIBILITY OF SICK SINUS SYNDROME SYMPTOMATIC BRADYCARDIA TACHY-RALEIGH SYNDROME AND POSSIBILITY OF NEEDING A PERMANENT PACEMAKER (2) Dementia: Code(s): F03.90 - Unspecified dementia, unspecified severity, without behavioral disturbance, psychotic disturbance, mood disturbance, and anxiety Status: Acute Assessment and Plan: Reviewed with daughter who notes that pt is otheriwise doing ok has issues with dementia however pt appears quite functional (3) Hypotension: Code(s): I95.9 - Hypotension, unspecified Status: Acute Assessment and Plan: Reviewed with RN Okay to hold Entresto patient's blood pressure seems to be better she appears more energetic and more alert today additionally LVEF was preserved on echo which was done this admission does not need to be on Entresto increased risk for falling with hypotension and bradycardia Plan Okay for discharge from cardiac standpoint patient is stable on amiodarone blood pressure is improved however remains low Recommend to avoid dehydration Follow-up with Dr. FRANCO in 2 weeks for tele monitor and if there are any plans for cardioversion Subjective Date/time seen: 07/14/24 15:35 Interval history: No evidence of chest pain just shortness of breath telemetry demonstrates her to be in atrial fibrillation with rate control discussed with her daughter in the room who is at bedside the patient should be able to go home and since she is going to be observed should be safe for discharge continue with anticoagulation with Eliquis 5 mg twice a day currently amiodarone 200 mg twice a day will give a prescription for metoprolol ER 12.5 mg every other day and that the patient develops tachycardia. 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 Extrem: Other: No edema noted bilaterally Objective Data Vital Signs Vital Signs: Vital Signs - 24 hr 07/13/24 15:51 07/13/24 16:00 07/13/24 18:27 Temperature 36.1 C L Pulse Rate 72 68 68 Respiratory Rate 16 Blood Pressure 103/66 Pulse Oximetry 96 Oxygen Delivery 07/13/24 20:00 07/13/24 20:00 07/13/24 23:54 Temperature 36.5 C 36.6 C Pulse Rate 68 68 63 Respiratory Rate 18 16 Blood Pressure 99/64 L 100/75 Pulse Oximetry 94 94 Oxygen Delivery 07/14/24 00:00 07/14/24 04:00 07/14/24 04:00 Temperature 36.2 C L Pulse Rate 62 69 62 Respiratory Rate 20 Blood Pressure 118/79 Pulse Oximetry 95 Oxygen Delivery 07/14/24 08:00 07/14/24 09:18 07/14/24 12:00 Temperature Pulse Rate 60 68 69 Respiratory Rate Blood Pressure Pulse Oximetry Oxygen Delivery 07/14/24 13:34 Temperature Pulse Rate Respiratory Rate Blood Pressure Pulse Oximetry Oxygen Delivery Room Air Intake/Output Intake/Output: Intake & Output 07/11/24 07/12/24 07/13/24 07/14/24 23:59 23:59 23:59 23:59 Intake Total 1120 1618 1270 550 Output Total 1100 50 2300 2100 Balance 20 4099 -1030 -1550 Meds/Results Medications: Active Medications Generic Name Dose Route Start Last Admin Trade Name Freq PRN Reason Stop Dose Admin Acetaminophen 650 mg 07/10/24 12:03 07/11/24 06:51 Acetaminophen 325 Mg Tablet PO 650 mg Q4H PRN Administration Mild Pain (1-3) or Fever Acetaminophen 325 mg 07/12/24 09:00 07/14/24 09:18 Acetaminophen 325 Mg Tablet PO 325 mg DAILY HASEEB Administration Amiodarone HCl 200 mg 07/09/24 09:00 07/14/24 09:18 Amiodarone Hcl 200 Mg Tablet PO 200 mg BID HASEEB Administration Apixaban 5 mg 07/09/24 09:00 07/14/24 09:18 Apixaban 5 Mg Tablet PO 5 mg Q12HR HASEEB Administration Aspirin 81 mg 07/11/24 09:00 07/14/24 09:18 Aspirin 81 Mg Enteric Tablet PO 81 mg DAILY HASEEB Administration Atorvastatin Calcium 40 mg 07/11/24 09:00 07/14/24 09:18 Atorvastatin 40 Mg Tablet PO 40 mg DAILY HASEEB Administration Benzonatate 200 mg 07/12/24 18:38 Benzonatate 100 Mg Capsule PO TID PRN Cough Donepezil HCl 10 mg 07/12/24 09:00 07/14/24 09:18 Donepezil Hcl 10 Mg Tablet PO 10 mg DAILY HASEEB Administration Duloxetine HCl 60 mg 07/11/24 09:00 07/14/24 09:19 Duloxetine Hcl 60 Mg Capsule.Dr PO 60 mg DAILY HASEEB Administration Furosemide 40 mg 07/08/24 09:00 07/11/24 20:56 Furosemide Inj 40 Mg/4 Ml Vial IV PUSH 40 mg Q12HR HASEEB Administration Gabapentin 300 mg 07/10/24 21:00 07/14/24 09:18 Gabapentin 300 Mg Capsule PO 300 mg Q12H HASEEB Administration Magnesium Oxide 400 mg 07/09/24 09:00 07/14/24 09:19 Magnesium Oxide 400 Mg Tablet PO 400 mg BID HASEEB Administration Memantine 10 mg 07/10/24 21:00 07/14/24 09:19 Memantine 10 Mg Tablet PO 10 mg Q12HR HASEEB Administration Metoprolol Tartrate 25 mg 07/10/24 18:00 07/13/24 19:08 Metoprolol Tartrate 25 Mg Tablet PO Not Given Q6HR HASEEB Raloxifene HCl 60 mg 07/12/24 09:00 07/14/24 09:18 Raloxifene Hcl (*Chemo) 60 Mg Tablet PO 60 mg DAILY HASEEB Administration Sacubitril/Valsartan 1 tab 07/08/24 21:00 07/13/24 18:27 Sacubitril/Valsartan 24-26 Mg Tablet PO Not Given Q12HR HASEEB Tramadol HCl 50 mg 07/11/24 12:06 07/12/24 20:36 Tramadol Hcl (*Crx) 50 Mg Tablet PO 50 mg Q12H PRN Administration shoulder pain Vitamin D 2,000 units 07/11/24 09:00 07/14/24 09:17 Cholecalciferol 1,000 Units Tablet PO 2,000 units DAILY HASEEB Administration Radiology Results: ITS Impressions Shoulder X-Ray 07/11/24 09:45 Impression: Advanced glenohumeral joint degenerative change. Chest X-Ray 07/13/24 10:48 IMPRESSION: 1. No acute cardiopulmonary disease. Labs Labs: Laboratory Results - last 24 hr 07/14/24 07:07 WBC 8.0 RBC 4.21 Hgb 12.4 Hct 38.5 MCV 91.4 MCH 29.5 MCHC 32.2 RDW 12.7 Plt Count 227 MPV 11.0 H Immature Gran % (Auto) 0.6 H Neut % (Auto) 60.1 Lymph % (Auto) 27.4 Harmon % (Auto) 9.4 H Eos % (Auto) 1.6 Baso % (Auto) 0.9 Lymph # (Auto) 2.19 Harmon # (Auto) 0.8 H Eos # (Auto) 0.1 Baso # (Auto) 0.1 Abs Immat Gran (auto) 0.05 H Absolute Neuts (auto) 4.8 Absolute Nucleated RBC 0.000 Nucleated RBC % 0.0 Sodium 132 L Potassium 3.9 Chloride 104 Carbon Dioxide 30 Anion Gap -2 L BUN 37 H Creatinine 1.00 Estim Creat Clear Calc 49 Estimated GFR 53 L Glucose 104 Calcium 8.1 L Total Bilirubin 0.7 AST 39 H ALT 34 Alkaline Phosphatase 79 Total Protein 5.0 L Albumin 2.7 L Imaging Radiologist's impression: Radiologist's impression: ECHO REPORT Summary 1. Left ventricular chamber dimension is mildly enlarged. 2. Left ventricular systolic function is normal, estimated at 50-55%. 3. There is mildly increased left ventricular wall thickness. 4. The left ventricular diastolic function is abnormal. 5. Left atrial chamber dimension is mildly enlarged. 6. There is trace mitral valve regurgitation.
--- NOTE | 2024-07-14 16:06 | P.DS_ITS ---
DS: Admitting Diagnosis Discharge Date 07/14/2024 Admitting Diagnosis Arrhythmia/Palpitations DS: Discharge Diagnosis Discharge Diagnosis (1) Atrial fibrillation: Code(s): I48.91 - Unspecified atrial fibrillation Status: Acute Assessment and Plan: Patient is on Eliquis for anticoagulation, amiodarone for heart rate control. Prescription for metoprolol extended release 12.5 mg every other day if patient has elevated heart rate. (2) Arthritis: Code(s): M19.90 - Unspecified osteoarthritis, unspecified site Status: Acute Assessment and Plan: Stable on current medication (3) Dementia: Code(s): F03.90 - Unspecified dementia, unspecified severity, without behavioral disturbance, psychotic disturbance, mood disturbance, and anxiety Status: Acute Assessment and Plan: Stable on current medication, continue current treatment. (4) Hypotension: Code(s): I95.9 - Hypotension, unspecified Status: Acute Assessment and Plan: Resolved. Blood pressure is 108/70. Will discontinue metoprolol and entresto . Plan 07/13/2024 Case discussed with daughter in detail. She is in agreement with current plan of care and treatment. Most likely the episode of hypotension was secondary to metoprolol and entresto . Blood pressure is stable at present time. Bladder scan showed Patient had 350 cc urinary bladder. Dominguez was placed and left in for monitoring of input and output. Cardiology and Renal consult. Will follow labs. Afib with RVR, now rate controlled Continue Amiodarone 200mg bid, Eliquis 5mg bid [id number] score 4 ECHO reviewed, and TSH wnl Cardiology following Dementia A and O x2 appears to be at baseline Continue home meds HLD continue home meds DS: Summary Hospital Course Hospital Course: 83-year-old female past medical history of dementia and hyperlipidemia presented to ER by control of atrial fibrillation. Patient is she to her primary care physician with shortness of right patient was evaluated and noted to be in atrial fibrillation with rapid ventricular response and referred to the ER for acute care. Otherwise she denies any chest pain vomiting diarrhea pain and dysuria no focal symptoms. Patient was not oriented x2 was able to tell the year and not month Evaluation notable for temperature 97.8?, pulse rate 103, respiratory is 18 blood pressure 163/86 saturating 97% on room air. Labs notable for a T proBNP 14 40, potassium 3.4, magnesium 2.2. Chest x-ray no acute changes. EKG showed atrial fibrillation with rapid ventricular response with rate of 101. Patient underwent echocardiogram. Left ventricle ejection fraction 50-55%. Left ventricular diastolic function is abnormal. Please review the full echo report. For unknown reason patient was started on Entresto, and Lasix. Patient was not able to tolerate both the medications because of low blood pressure. Later after discussing with Cardiology agrees to discontinue Entresto and Lasix. Patient during the hospitalization started on amiodarone 200 mg p.o. b.i.d. in the event of nausea patient can take 200 mg p.o. q.d.. If patient develops rapid heart rate patient can take metoprolol extended release 12.5 mg every other day. Patient needs to be evaluated further by the Cardiology for perm anent pacemaker placement evaluation. Status at Discharge Cognitive/behavioral status at discharge: Stable Time Spent with Patient Time attestation: Total time spent providing and/or coordinating discharge services: 45 minutes Exam Narrative: General: alert and comfortable Eyes: EOMI, PERRLA ENNT External ears normal, Neck is supple, no masses, Respiratory systems: Clear to auscultation Cardiovascular S1, S2, irregular rhythm, no murmur, rub, or gallop; no thrill or palpable murmurs on palpation. Gastrointestinal: soft, non-tender, and non-distended abdomen with no masses; BS present Skin: no rash, lesions, ulcerations, subcutaneous nodules or induration Musculoskeletal: no abnormality and no tenderness, normal ROM Neurologic: Alert and oriented x2, non focal Mental Status Exam: normal affect DS: Data Data Completed and Pending Labs on day of discharge: Labs from last 24 hours 07/14/24 07:07 WBC 8.0 RBC 4.21 Hgb 12.4 Hct 38.5 MCV 91.4 MCH 29.5 MCHC 32.2 RDW 12.7 Plt Count 227 MPV 11.0 H Immature Gran % (Auto) 0.6 H Neut % (Auto) 60.1 Lymph % (Auto) 27.4 Delta % (Auto) 9.4 H Eos % (Auto) 1.6 Baso % (Auto) 0.9 Lymph # (Auto) 2.19 Delta # (Auto) 0.8 H Eos # (Auto) 0.1 Baso # (Auto) 0.1 Abs Immat Gran (auto) 0.05 H Absolute Neuts (auto) 4.8 Absolute Nucleated RBC 0.000 Nucleated RBC % 0.0 Sodium 132 L Potassium 3.9 Chloride 104 Carbon Dioxide 30 Anion Gap -2 L BUN 37 H Creatinine 1.00 Estim Creat Clear Calc 49 Estimated GFR 53 L Glucose 104 Calcium 8.1 L Total Bilirubin 0.7 AST 39 H ALT 34 Alkaline Phosphatase 79 Total Protein 5.0 L Albumin 2.7 L Preliminary micro results at discharge 07/12/24 01:21 Blood Culture - Preliminary Blood 07/12/24 01:21 Blood Culture - Preliminary Blood Discharge Plan Discharge Attending physician on discharge: Geo Vergara Consulting providers: Rosie Jiménez; Carlo George; Arnaldo Dickerson Discharging Clinician: Geo Vergara Anticipated Discharge Date/Time: 07/14/24 15:55 Patient Disposition: Home, Self-Care Activity: as tolerated Diet: heart healthy Discharge Instructions: As per cardiology request patient will be discharged with telemetry Follow-up with your primary care provider in 1-2 weeks. Please call for appointment. Follow-up with Cardiology in 2-4 weeks. Please call for an appointment. As per cardiology request patient can take metoprolol ER 12.5 mg every other day if needed. In the event of nausea patient take amiodarone 200 mg once a day instead of b.i.d. Possibility of sick sinus syndrome. Needs to follow up with Cardiology to evaluate for permanent pacemaker Contact your doctor or call 911 and come to the Emergency Room if you have any type of trauma, lightheadedness with standing or other worrisome symptoms. Avoid NSAIDs (ibuprofen, naproxen, Aleve). Tylenol is safe to take. Thank you for using [facility] for your health care needs. Patient Instructions: Antibiotic Form Patient Language: Kinyarwanda Stand Alone Forms: General Discharge Information Follow-up/Referrals: Vimal Apple DO [Physician] - (Follow-up with Cardiology in 2-4 weeks. Please call for an appointment. As per cardiology request patient can take metoprolol ER 12.5 mg every other day if needed. In the event of nausea patient take amiodarone 200 mg once a day instead of b.i.d. Possibility of sick sinus syndrome. Needs to follow up with Cardiology to evaluate for permanent pacemaker) Dana,MD [place] [Primary Care Provider] - Discharge Medications: New amiodarone [Pacerone] 200 mg Tablet 200 mg PO BID Qty: 30 0RF Eliquis 5 mg Tablet 5 mg PO Q12HR Qty: 30 0RF metoprolol succinate 25 mg tablet extended release 24 hr 12.5 mg PO EVERY OTHER DAY Qty: 30 0RF Continued acetaminophen 325 mg tablet 325 mg PO DAILY aspirin 81 mg tablet,delayed release (DR/EC) 81 mg PO DAILY atorvastatin 40 mg tablet 40 mg PO DAILY duloxetine 60 mg capsule,delayed release(DR/EC) 60 mg PO DAILY donepezil 10 mg tablet 10 mg PO DAILY gabapentin 300 mg capsule 300 mg PO Q12H memantine 10 mg tablet 10 mg PO BID Rexulti 2 mg tablet 2 mg PO DAILY cholecalciferol (vitamin D3) 25 mcg (1,000 unit) tablet 2,000 unit PO DAILY raloxifene 60 mg tablet 60 mg PO DAILY tramadol 50 mg tablet 50 mg PO Q12H PRN (Reason: shoulder pain) Date of admission: 07/09/24 09:37 Primary Care Provider: DanaOrlando Admitting Provider: Jorge Luis Meza V. Attending physician on admission: Jorge Luis Meza V. Condition: Stable
--- OUTSIDE RECORDS SUMMARY | 2024-07-15 03:04 | XMS_ITS | Encounter Summary ---
Author Organization [facility] Address [address] [address] Care Team Providers Care Cupola Tender Helper Name Role Phone Kit Kyle MD Primary Care Provider [phone] Senthil Michael MD Unavailable [phone] Reason for Visit * Reason Onset Date Comments MEDICATION REFILL 04/30/2015 Encounter Details Date Type Department Care Team (Late st Contact Info) Description 04/30/[address] [facility] - Internal Medicine [address] [place] [address] Kit Kyle MD [address] [place] [address] MEDICATION REFILL Social History Tobacco Use Types Packs/Day Years Used Date Smoking Tobacco: Former Cigarettes 0.5 20 0 07/12/1972 - 07/12/1992 Smokeless Tobacco: Never Comments:quit @ 20 yrs ago Alcohol Use Standard Drinks/Week Comments No 0 (1 standard drink = 0.6 oz pur e alcohol) rare Sex and Gender Information Value Date Recorded Sex Assigned at Not on file Gender Identity Not on file Sexual Orientation Not on file documented as of this encounter Functional Status Functional Status Response Date of Assess ment Is person deaf or have serious hearing difficult y? No 01/05/2014 Is person blind or have serious difficulty seein g? No 01/05/2014 Does person have serious dif ficulty walking/climbing stairs? No 01/05/2014 Does person have difficulty dressing/bathing? No 01/05/2014 Does person have difficulty doing errands alone? No 01/05/2014 Cognitive Status Response Date of Assessm ent Does person have difficulty concentrating/remembering/making decisions? No 01/05/2014 documented as of this encounter Miscellaneous Notes * Telephone Encounter - Delfina Chun MA - 04/30/2015 11:05 AM CDT Last OV: 04/01/15 Last refill: 08/20/14 documented in this encounter Plan of Treatment Not on file documented as of this encounter Visit Diagnoses Diagnosis Neuropathy- Primary Mononeuritis of unspecified site documented in this encounter Care Teams Cupola Tender Helper Relationship Specialty Start Date End Date Kit Kyle MD [address] [place] [address] PCP - General Internal Medicine 12/19/13 12/15/16 Senthil Michael MD [address] [place] [address] Podiatry 12/21/14 documented as of this encounter
--- OUTSIDE RECORDS SUMMARY | 2024-07-15 03:04 | XMS_ITS | Encounter Summary ---
Author Organization [facility] Address [address] [place] [address] Care Team Providers Care Reading Interventionist Name Role Phone Kit Kyle MD Primary Care Provider [phone] Senthil Michael MD Unavailable [phone] Reason for Visit * Reason Comments Memory Loss Encounter Details Date Type Department Care Team (Late st Contact Info) Description 12/18/2015 9:30 AM CDT Office Visit [facility] - Internal Medicine [address] [place] [address] Kit Kyle MD [address] [place] [address] Memory problem (Primary Dx); Lumbosacral radiculopathy; Spinal stenosis, unspecified spinal region; Other hyperlipidemia; Osteoporosis Social History Tobacco Use Types Packs/Day Years [...] on file documented as of this encounter Last Filed Vital Signs Vital Sign Reading Time Taken Comments Blood Pressure 124/72 12/18/2015 9:15 AM CDT Pulse 78 12/18/2015 9:15 AM CDT Temperature - - Respiratory Rate - - Oxygen Saturation - - Inhaled Oxygen Concentration - - Weight 83 kg (183 lb) 12/18/2015 9:15 AM CDT Height 177.8 cm (5' 10) 12/18/2015 9:15 AM CDT Body Mass Index 26.26 12/18/2015 9:15 AM CDT documented in this encounter Functional Status Functional Status Response [...] No 01/05/2014 documented as of this encounter Progress Notes * Kit Kyle MD - 12/19/2015 7:53 AM CDT Encounter Diagnoses Name Primary? Memory problem Yes ??? Lumbosacral radiculopathy ??? Spinal stenosis, unspecified spinal region ??? Other hyperlipidemia ??? Osteoporosis Patient is here mainly for concerns about memory problems. 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 Does have a family history of Alzheimer in her mother's who was in her late 70s when she got it. Of note the patient has been under a lot of stress as her significant other has been sick for the past 3 years and she has been overwhelmed by his medical problems. She is also here for risk adjusted visit she has osteoporosis and is on appropriate meds she has hyperlipidemia and is on a statin. She has significant back problems and is on gabapentin which is variably helpful. Current Outpatient Prescriptions Medication ??? sertraline (ZOLOFT) 50 MG tablet ??? gabapentin (NEURONTIN) 300 MG capsule ??? atorvastatin (LIPITOR) 40 MG tablet ??? Raloxifene HCl (EVISTA PO) ??? aspirin (ASPIRIN) 81 MG tablet ??? tiZANidine HCl 4 MG No current facility-administered medications for this visit. Facility-Administered Medications Ordered in Other Visits Medication ? ? betamethasone acet & sod phos (CELESTONE) injection 6-18 mg ??? 0.9% NaCl injection 1 mL ??? lidocaine (XYLOCAINE MPF) 1 % injection ??? iohexol (OMNIPAQUE 180) contrast I have reviewed the medication list, allergy list, and problem list as documented in Epic. The review of systems is as documented in the HPI OBJECTIVE: BP 124/72 mmHg Pulse 78 Wt 83.008 kg (183 lb) BMI 26.26 kg/m2 General appearance: alert, well appearing, and in no distress. Neck exam - supple, no significant adenopathy CVS exam: normal rate, regular rhythm, normal S1, S2, no murmurs, rubs, clicks or gallops. Chest: clear to auscultation, no wheezes, rales or rhonchi, symmetric air entry. Abdominal exam: soft, nontender, nondistended, no masses or organomegaly. Exam of extremities: peripheral pulses normal, no pedal edema, no clubbing or cyanosis Mini cognition score with normal clock drawing 2/3 recall Encounter Diagnoses Name Primary? Memory problem Yes ??? Lumbosacral radiculopathy ??? Spinal stenosis, unspecified spinal region ??? Other hyperlipidemia ??? Osteoporosis Orders Placed This Encounter ??? CT HEAD NON CONTRAST ??? sertraline (ZOLOFT) 50 MG tablet Has had tsh and B12 within the past year they were normal. Will check CT head suspect her symptoms may be due to anxiety and depression will initiate Zoloft arrange follow-up in a month if not improving consider neurology eval for possible early stage dementia. Other issues are stable * Maribel Polk - 12/18/2015 9:14 AM CDT Ernestine Salinas is a 75 y.o. female is here today for an JONA and due to some memory loss episodes for quite awhile per daughter. BP 124/72 mmHg Pulse 78 Wt 83.008 kg (183 lb) BMI 26.26 kg/m2 Body mass index is 26.26 kg/(m^2). CrCl cannot be calculated (Patient has no serum creatinine result on file.). documented in this encounter Plan of Treatment Not on file documented as of this encounter Visit Diagnoses Diagnosis Memory problem- Primary Memory loss Lumbosacral radiculopathy Thoracic or lumbosacral neuritis or radiculitis, unspecified Spinal stenosis, unspecified spinal region Other hyperlipidemia Osteoporosis documented in this encounter Care Teams Reading Interventionist Relationship Specialty Start Date End Date Kit Kyle MD [address] [place] [address] PCP - General Internal Medicine 12/19/13 12/15/16 Senthil Michael MD [address] [place] [phone] Podiatry 12/21/14 documented as of this encounter"
--- OUTSIDE RECORDS SUMMARY | 2024-07-15 03:04 | XMS_ITS | Encounter Summary ---
Author Organization [facility] Address [address] [place] [address] Care Team Providers Care Stripper And Opaquer Apprentice Name Role Phone Kit Kyle MD Primary Care Provider [phone] Senthil Michael MD Unavailable [phone] Encounter Details Date Type Department Care Team (Late st Contact Info) Description 12/02/2015 Therapy Visit EXTERNAL NON-[facility] DEPT Unknown, Provider Social History Tobacco Use Types Packs/Day Years [...] No 01/05/2014 documented as of this encounter Plan of Treatment Not on file documented as of this encounter Visit Diagnoses Not on filedocumented in this encounter Care Teams Stripper And Opaquer Apprentice Relationship Specialty Start Date End Date Kit Kyle MD [address] [place] [address] PCP - General Internal Medicine 12/19/13 12/15/16 Senthil Michael MD [address] [place] [address] Podiatry 12/21/14 documented as of this encounter
--- OUTSIDE RECORDS SUMMARY | 2024-07-15 03:04 | XMS_ITS | Encounter Summary ---
Author Organization [facility] Address [address] [place] [address] Care Team Providers Care Fnp Name Role Phone Kit Kyle MD Primary Care Provider [phone] Reason for Visit * Reason Onset Date Comments MEDICATION REFILL 08/20/2014 Encounter Details Date Type Department Care Team (Late st Contact Info) Description 08/20/2014 Refill [facility] - Internal Medicine [address] [place] [address] Kit Kyle MD [address] [place] [address] MEDICATION REFILL Social History Tobacco [...] encounter Miscellaneous Notes * Telephone Encounter - Mariam Burch - 08/20/2014 3:55 PM CST Last OV: 05/17/14 Last refill: [address] documented in this encounter Plan of Treatment Not on file documented as of this encounter Visit Diagnoses Diagnosis Neuropathy- Primary Mononeuritis of unspecified site documented in this encounter Care Teams Fnp Relationship Specialty Start Date End Date Kit Kyle MD [address] [place] [address] PCP - General Internal Medicine 12/19/13 12/15/16 documented as of this encounter
--- OUTSIDE RECORDS SUMMARY | 2024-07-15 03:04 | XMS_ITS | Encounter Summary ---
Author Organization [facility] Address [address] [place] [address] Care Team Providers Care Didactic Program In Dietetics Director Name Role Phone Kit Kyle MD Primary Care Provider [phone] Encounter Details Date Type Department Care Team (Latest Contact Info) Description 03/09/2014 2:12 PM CDT - 03/09/2014 11:59 PM CDT Hospital Encounter [facility] Radiology [address] [place] [address] Kit Kyle MD [address] [place] [address] Discharge Disposition: Home or Self Care Social History Tobacco Use Types Packs/Day Years [...] No 01/05/2014 documented as of this encounter Medications at Time of Discharge Medication Sig Dispensed Refills Start Date End Date aspirin (ASPIRIN) 81 MG tabletIndications:Routin e general medical examination at a health care facility Take 81 mg by mouth once daily. Raloxifene HCl (EVISTA PO) Take 60 mg by mouth. atorvastatin (LIPITOR) 40 MG tablet Take 40 mg by mouth at bedtime. 12/21/2014 CALCIUM 600+D PLUS MINERALS PO Take by mouth. 12/21/2014 CELEBREX 200 MG CAPS Take 200 mg by mouth daily. 10/24/2014 DULoxetine (CYMBALTA) 60 MG capsuleIndications:Neuro milton Take 1 Cap by mouth once daily. 30 Cap 5 03/09/2014 08/20/2014 gabapentin (NEURONTIN) 300 MG capsule Take 600 mg by mouth daily with breakfast 12/18/2015 meloxicam (MOBIC) 7.5 MG tablet Take 1 Tab by mouth once daily. 30 Tab 2 03/09/2014 05/31/2014 OMEGA 3 1000 MG CAPS Take 1000 mg by mouth daily. 04/01/2015 VITAMIN B-12 PO Take 100 Units by mouth daily. 04/01/2015 documented as of this encounter Plan of Treatment Not on file documented as of this encounter Procedures Procedure Name Priority Date/Time Associated Diagnosis Comments XR KNEE RIGHT 2VW OR LESS Routine 03/09/2014 2:33 PM CDT Right knee pain documented in this encounter Results * XR KNEE 1 OR 2 VW RIGHT (03/09/2014 2:33 PM CDT) Anatomical Region Laterality Modality Lower Extremity Radiographic Mely ging 03/09/2014 2:50 PM CDT Impressions 03/09/2014 2:56 PM CDT Moderate degenerative change in right knee as described above. Narrative 03/09/2014 2:56 PM CDT Right knee 2 views History: Right knee pain Findings: There is moderate degenerative change in the medial compartment and at the patellofemoral articulation. No fracture or joint effusion is seen. Procedure Note Po Morgan MD - 03/09/2014 Right knee 2 views History: Right knee pain Findings: There is moderate degenerative change in the medial compartment and at the patellofemoral articulation. No fracture or joint effusion is seen. IMPRESSION Moderate degenerative change in right knee as described above. Kit Kyle MD DIAGNOSTIC IMAGING O RDERABLES documented in this encounter Visit Diagnoses Diagnosis Right knee pain Pain in joint, lower leg documented in this encounter Care Teams Didactic Program In Dietetics Director Relationship Specialty Start Date End Date Kit Kyle MD [address] [place] [address] PCP - General Internal Medicine 12/19/13 12/15/16 documented as of this encounter
--- OUTSIDE RECORDS SUMMARY | 2024-07-15 03:04 | XMS_ITS | Encounter Summary ---
Author Organization [facility] Address [address] [place] [address] Care Team Providers Care Cubing Machine Tender Name Role Phone Kit Kyle MD Primary Care Provider Senthil Michael MD Unavailable Reason for Referral * Radiology Services (Routine) - Closed Specialty Diagnoses / Procedures Referred By Contac t Referred To Contact Bone Densitometry Diagnoses Spinal stenosis, unspecified spinal region Scoliosis of thoracolumbar spine, unspecified scoliosis type Procedures DEXA BONE DENSITY 2 SITES Shakeel Santana MD [address] [place] [phone] Referral ID Status Reason Start Date Expiration Date Visits Re quested Visits Authorized [id number] Closed 11/05/2015 05/03/2016 1 1 Reason for Visit * Radiology Services (Routine) - Closed Specialty Diagnoses / Procedures Referred By Contac t Referred To Contact Bone Densitometry Diagnoses Spinal stenosis, unspecified spinal region Scoliosis of thoracolumbar spine, unspecified scoliosis type Procedures DEXA BONE DENSITY 2 SITES Shakeel Santana MD [address] [place] [phone] Referral ID Status Reason Start Date Expiration Date Visits Re quested Visits Authorized [id number] Closed 11/05/2015 05/03/2016 1 1 Encounter Details Date Type Department Care Team (Latest Contact Info) Description 11/27/2015 7:32 AM CDT - 11/27/2015 11:59 PM CDT Hospital Encounter [facility] Breast Care [address] [place] [address] Shakeel Santana MD [address] [place] [address] Discharge Disposition: Home or Self Care Social [...] Take 81 mg by mouth once daily. atorvastatin (LIPITOR) 40 MG tablet Take 40 mg by mouth once daily Raloxifene HCl (EVISTA PO) Take 60 mg by mouth. tiZANidine HCl 4 MG Take 4 mg by mouth 2 times daily gabapentin (NEURONTIN) 300 MG capsule Take 900 mg by mouth at bedtime 12/25/2015 gabapentin (NEURONTIN) 300 MG capsule Take 600 mg by mouth daily with breakfast 12/18/2015 ibuprofen (MOTRIN) 800 MG tablet Take 1 Tab by mouth every 6 hours as needed for Pain 50 Tab 0 04/22/2015 12/18/2015 meloxicam (MOBIC) 7.5 MG tabletIndications:Bilate ral low back pain without sciatica Take 1 Tab by mouth once daily 90 Tab 3 02/11/2015 12/18/2015 documented as of this encounter Plan of Treatment Not on file documented as of this encounter Procedures Procedure Name Priority Date/Time Associated Diagnosis Comments DEXA BONE DENSITY 2 SITES Routine 11/27/2015 7:48 AM CDT Spinal stenosis, unspecified spinal region Scoliosis of thoracolumbar spine, unspecified scoliosis type documented in this encounter Results * DEXA BONE DENSITY 2 SITES (11/27/2015 7:48 AM CDT) Anatomical Region Laterality Modality Mammography 11/27/2015 12:1 6 PM CDT Impressions 11/27/2015 12:16 PM CDT LUMBAR: Normal Range. FEMUR: Moderate osteopenia Narrative 11/27/2015 12:16 PM CDT BONE MINERAL DENSITY STUDY: TECHNIQUE: Standard DEXA examination. Exam Location: [facility]: [employer] Horizon A ([place] 5.5.2) [facility]: [employer] Discovery SL QDR ([place] 3.4) [facility] [address]: [place] 2005 INDICATION: ?? Post menopausal woman COMPARISON: No available comparison [employer] DEFINITIONS OF STANDARD DEVIATIONS RELATIVE TO THE MEAN T- SCORE: MILD OSTEOPENIA = -1 to -1.5 MOD OSTEOPENIA = -1.5 to -2.0 SVR ??OSTEOPENIA = -2.0 to -2.5 OSTEOPOROSIS = -2.5 and more FINDINGS: LUMBAR: The bone mineral content of the lumbar spine, L1-L4, ??is 1.102 ??g/cm2. The T-score is +0.5 standard deviations relative to the mean for the adult T-score. FEMUR: The bone mineral content of the femoral neck is 0.666 g/cm2. The T-score is -1.6 standard deviations relative to the mean for the adult T-score. FRAX Calculation - 10 year Fracture Risks ([facility] Only): Frax Version 3.08: probability calculated for untreated patient. Major osteoporotic fracture, %: Not available. Hip fracture, %: Not available. Procedure Note Luis Cruz MD - 11/27/2015 BONE MINERAL DENSITY STUDY: TECHNIQUE: Standard DEXA examination. Exam Location: [facility]: [employer] Horizon A ([place] 5.5.2) [facility]: [employer] Discovery SL QDR ([place] 3.4) [facility]: [place] - [employer] 2005 INDICATION: Post menopausal woman COMPARISON: No available comparison [employer] DEFINITIONS OF STANDARD DEVIATIONS RELATIVE TO THE MEAN T- SCORE: MILD OSTEOPENIA = -1 to -1.5 MOD OSTEOPENIA = -1.5 to -2.0 SVR OSTEOPENIA = -2.0 to -2.5 OSTEOPOROSIS = -2.5 and more FINDINGS: LUMBAR: The bone mineral content of the lumbar spine, L1-L4, is 1.102 g/cm2. The T-score is +0.5 standard deviations relative to the mean for the adult T-score. FEMUR: The bone mineral content of the femoral neck is 0.666 g/cm2. The T-score is -1.6 standard deviations relative to the mean for the adult T-score. FRAX Calculation - 10 year Fracture Risks ([facility] Only): Frax Version 3.08: probability calculated for untreated patient. Major osteoporotic fracture, %: Not available. Hip fracture, %: Not available. IMPRESSION LUMBAR: Normal Range. FEMUR: Moderate osteopenia Shakeel Santana MD DEXA ORDERABLES documented in this encounter Visit Diagnoses Diagnosis Spinal stenosis, unspecified spinal region Scoliosis of thoracolumbar spine, unspecified scoliosis type documented in this encounter Care Teams Cubing Machine Tender Relationship Specialty Start Date End Date Kit Kyle MD [address] [place] [address] PCP - General Internal Medicine 12/19/13 12/15/16 [place] [address] [place] [address] [place] [address] Podiatry 12/21/14 documented as of this encounter
--- OUTSIDE RECORDS SUMMARY | 2024-07-15 03:04 | XMS_ITS | Encounter Summary ---
Author Organization [facility] Address [address] [facility] [place] [address] Care Team Providers Care Bed Control Specialist Name Role Phone Kit Kyle MD Primary Care Provider Senthil Michael MD Unavailable [phone] Encounter Details Date Type Department Care Team (Latest Contact Info) Description 12/03/2015 1:18 PM CDT - 12/03/2015 11:59 PM CDT Hospital Encounter [facility] Imaging Services - Radiology [address] [place] [address] Shakeel Santana MD [address] [facility] [address] [place] [address] Discharge Disposition: Home or Self [...] Name Priority Date/Time Associated Diagnosis Comments XR SPINE ENTIRE 4 OR 5VW Routine 12/03/2015 1:50 PM CDT Spinal stenosis, unspecified spinal region Scoliosis of thoracolumbar spine, unspecified scoliosis type documented in this encounter Results * XR SCOLIOSIS WITH BENDING (12/03/2015 1:50 PM CDT) Anatomical Region Laterality Modality Radiographic Mely ging 12/03/2015 4:43 PM CDT Impressions 12/03/2015 4:50 PM CDT Diffuse degenerative changes as detailed above. No fracture or other abnormality of the cervical, thoracic or lumbar spine identified. Narrative 12/03/2015 4:50 PM CDT Entire spine (cervical, thoracic, lumbar): History: Pain beginning in May 2015 which is relatively constant and extends down the right leg with tingling, no known specific injury. Technique: AP and lateral views of the cervical, thoracic and lumbar spine were obtained on 12/03/2015 with additional right and left lateral bending views. No relevant prior study is available. Findings: There is minimal scoliosis convex to the left in the lumbar region with mild 1-3 mm multilevel degenerative spondylolistheses with and associated loss of lordosis in the cervical and lumbar region and loss of kyphosis in the thoracic region, all of which may represent muscular spasm. The vertebral bodies are otherwise normally aligned with [id number] narrowing of the disc spaces and associated moderate hypertrophic degenerative changes of the vertebral bodies at multiple scattered levels, more notably in the mid and lower cervical region and in the mid and lower lumbar region. No abnormal mobility is seen with lateral bending. No fracture, dislocation or bone destruction is identified. Procedure Note Shakeel Early MD - 12/03/2015 Entire spine (cervical, thoracic, lumbar): History: Pain beginning in May 2015 which is relatively constant and extends down the right leg with tingling, no known specific injury. Technique: AP and lateral views of the cervical, thoracic and lumbar spine were obtained on 12/03/2015 with additional right and left lateral bending views. No relevant prior study is available. Findings: There is minimal scoliosis convex to the left in the lumbar region with mild 1-3 mm multilevel degenerative spondylolistheses with and associated loss of lordosis in the cervical and lumbar region and loss of kyphosis in the thoracic region, all of which may represent muscular spasm. The vertebral bodies are otherwise normally aligned with [id number] narrowing of the disc spaces and associated moderate hypertrophic degenerative changes of the vertebral bodies at multiple scattered levels, more notably in the mid and lower cervical region and in the mid and lower lumbar region. No abnormal mobility is seen with lateral bending. No fracture, dislocation or bone destruction is identified. IMPRESSION Diffuse degenerative changes as detailed above. No fracture or other abnormality of the cervical, thoracic or lumbar spine identified. Shakeel Santana MD DIAGNOSTIC IMAGING O RDERABLES documented in this encounter Visit Diagnoses Diagnosis Spinal stenosis, unspecified spinal region Scoliosis of thoracolumbar spine, unspecified scoliosis type documented in this encounter Care Teams Bed Control Specialist Relationship Specialty Start Date End Date Kit Kyle MD [address] [place] [address] PCP - General Internal Medicine 12/19/13 12/15/16 Senthil Michael MD [address] [place] [address] Podiatry 12/21/14 documented as of this encounter
--- OUTSIDE RECORDS SUMMARY | 2024-07-15 03:04 | XMS_ITS | Encounter Summary ---
Author Organization [facility] Address [address] [place] [address] Care Team Providers Care Deaf Interpreter Name Role Phone Senthil Michael MD Unavailable [phone] Reason for Visit * Reason Onset Date Comments Scheduling 12/16/2016 Encounter Details Date Type Department Care Team (Late st Contact Info) Description 12/16/2016 Patient Outreach [facility] [address] [place] [address] [place] [address] [address] Scheduling Social History Tobacco Use Types Packs/Day Years [...] encounter Miscellaneous Notes * Telephone Encounter - Fransisca Mcnulty MA - 12/16/2016 12:46 PM CDT Patient refused to schedule AWV and JONA at this time. documented in this encounter Plan of Treatment Not on file documented as of this encounter Visit Diagnoses Not on filedocumented in this encounter Care Teams Deaf Interpreter Relationship Specialty Start Date End Date Senthil Michael MD [address] [place] [address] Podiatry 12/21/14 documented as of this encounter
--- OUTSIDE RECORDS SUMMARY | 2024-07-15 03:04 | XMS_ITS | Encounter Summary ---
Author Organization [facility] Address [address] [place] [address] Care Team Providers Care Director Corporate Name Role Phone Kit Kyle MD Primary Care Provider [phone] Senthil Michael MD Unavailable [phone] Encounter Details Date Type Department Care Team (Late st Contact Info) Description 11/12/2015 Therapy Visit [facility]TERNAL NON-[facility] DEPT Unknown, Provider [...] on filedocumented in this encounter Care Teams Director Corporate Relationship Specialty Start Date End Date Kit Kyle MD [address] [place] [address] PCP - General Internal Medicine 12/19/13 12/15/16 Senthil Michael MD [address] [place] [address] Podiatry 12/21/14 documented as of this encounter
--- OUTSIDE RECORDS SUMMARY | 2024-07-15 03:04 | XMS_ITS | Encounter Summary ---
Author Organization [facility] Address [address] [place] [address] Care Team Providers Care Grades 1 Through 5 Teacher Name Role Phone Kit Kyle MD Primary Care Provider Senthil Michael MD Unavailable Reason for Referral * Radiology Services (Routine) - Closed Specialty Diagnoses / Procedures Referred By Contac t Referred To Contact MRI Diagnoses Right lumbar radiculopathy Procedures MRI LUMBAR SPINE WO CONTRAST Kit Kyle MD [address] [facility] [address] [place] [address] Referral ID Status Reason Start Date Expiration Date Visits Re quested Visits Authorized [id number] Closed 10/18/2015 12/02/2015 1 1 Reason for Visit * Radiology Services (Routine) - Closed Specialty Diagnoses / Procedures Referred By Contac t Referred To Contact MRI Diagnoses Right lumbar radiculopathy Procedures MRI LUMBAR SPINE WO CONTRAST Kit Kyle MD [address] [facility] [address] [place] [address] Referral ID Status Reason Start Date Expiration Date Visits Re quested Visits Authorized [id number] Closed 10/18/2015 12/02/2015 1 1 Encounter Details Date Type Department Care Team (Latest Contact Info) Description 10/23/2015 11:17 AM CDT - 10/23/2015 11:59 PM CDT Hospital Encounter [facility] Health Imaging Services - MRI [address] [place] [address] Kit Kyle MD [address] [place] [phone] Discharge Disposition: Home or Self Care Social [...] Date End Date aspirin (ASPIRIN) 81 MG tabletIndications:Routine general medical examination at a health care facility Take 81 mg by mouth once daily. Raloxifene HCl (EVISTA PO) Take 60 mg by mouth. DULoxetine (CYMBALTA) 60 MG capsuleIndications:Neurop athy Take 1 Cap by mouth once daily 30 Cap 5 04/30/2015 11/26/2015 gabapentin (NEURONTIN) 300 MG capsule Take 600 mg by mouth daily with breakfast 12/18/2015 ibuprofen (MOTRIN) 800 MG tablet Take 1 Tab by mouth every 6 hours as needed for Pain 50 Tab 0 04/22/2015 12/18/2015 meloxicam (MOBIC) 7.5 MG tabletIndications:Bilater al low back pain without sciatica Take 1 Tab by mouth once daily 90 Tab 3 02/11/2015 12/18/2015 traMADol (ULTRAM) 50 MG tabletIndications:Right lumbar radiculopathy 1 Tab 3 times daily 09/02/2015 11/26/2015 documented as of this encounter Plan of Treatment Not on file documented as of this encounter Procedures Procedure Name Priority Date/Time Associated Diagnosis Comments MRI LUMBAR SPINE WO CONTRAST Routine 10/23/2015 12:10 PM CDT Right lumbar radiculopathy documented in this encounter Results * MRI LUMBAR SPINE WO CONTRAST (10/23/2015 12:10 PM CDT) Anatomical Region Laterality Modality Spine Magnetic Resonan ce 10/23/2015 1:22 PM CDT Impressions 10/23/2015 1:26 PM CDT 1. Scoliosis with multilevel advanced degenerative disc disease as described. There is isolated marrow edema at L2-3 to the right of midline. 2. Severe stenosis at L4-5 with moderate stenosis at L3-4 and mild stenosis at L2-3. 3. No discrete disc herniation is seen 4. No fracture Narrative 10/23/2015 1:26 PM CDT HISTORY: Back and right-sided pain. The exam was performed without contrast. COMPARISON: None. Additional T2 imaging was performed in the coronal plane. There is mild to moderate levoscoliosis of the lumbar spine. There is multilevel advanced degenerative disc disease worse at L2-3 and L3-4 to the right along the inner convexity of the scoliotic curve with mild left lateral and posterior subluxation. There is mild anterior spondylolisthesis at L4-5. There is endplate reactive marrow edema which appears to the most part to be isolated to the L2-3 level. 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 There is no acute fracture seen. Axial imaging shows minor bulging at T12-L1. L1-2: Asymmetric bulging to the left. L2-3: Disc bulging and spurring to the right with right foraminal stenosis and right lateral recess stenosis. There is mild facet hypertrophy and epidural fat causing a mild degree of central canal is analysis. L3-4: Broad-based disc bulging and spurring with facet hypertrophy causing a moderate degree of canal stenosis with bilateral lateral recess and foraminal stenosis left greater than right. L4-5: Disc bulging and advanced facet hypertrophy. There is considerable compromise of the thecal sac narrowing both the AP and lateral diameter to 6 mm or less with bilateral lateral recess and foraminal stenosis. L5-S1: Advanced facet hypertrophy without canal compromise. The sacroiliac joints appear normal. The conus is of normal caliber and signal intensity. Procedure Note RootLuis MD - 10/23/2015 HISTORY: Back and right-sided pain. The exam was performed without contrast. COMPARISON: None. Additional T2 imaging was performed in the coronal plane. There is mild to moderate levoscoliosis of the lumbar spine. There is multilevel advanced degenerative disc disease worse at L2-3 and L3-4 to the right along the inner convexity of the scoliotic curve with mild left lateral and posterior subluxation. There is mild anterior spondylolisthesis at L4-5. There is endplate reactive marrow edema which appears to the most part to be isolated to the L2-3 level. 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 There is no acute fracture seen. Axial imaging shows minor bulging at T12-L1. L1-2: Asymmetric bulging to the left. L2-3: Disc bulging and spurring to the right with right foraminal stenosis and right lateral recess stenosis. There is mild facet hypertrophy and epidural fat causing a mild degree of central canal is analysis. L3-4: Broad-based disc bulging and spurring with facet hypertrophy causing a moderate degree of canal stenosis with bilateral lateral recess and foraminal stenosis left greater than right. L4-5: Disc bulging and advanced facet hypertrophy. There is considerable compromise of the thecal sac narrowing both the AP and lateral diameter to 6 mm or less with bilateral lateral recess and foraminal stenosis. L5-S1: Advanced facet hypertrophy without canal compromise. The sacroiliac joints appear normal. The conus is of normal caliber and signal intensity. IMPRESSION 1. Scoliosis with multilevel advanced degenerative disc disease as described. There is isolated marrow edema at L2-3 to the right of midline. 2. Severe stenosis at L4-5 with moderate stenosis at L3-4 and mild stenosis at L2-3. 3. No discrete disc herniation is seen 4. No fracture Kit Kyle MD MR ORDERABLES documented in this encounter Visit Diagnoses Diagnosis Right lumbar radiculopathy Thoracic or lumbosacral neuritis or radiculitis, unspecified documented in this encounter Care Teams Grades 1 Through 5 Teacher Relationship Specialty Start Date End Date Kit Kyle MD [address] [place] [address] PCP - General Internal Medicine 12/19/13 12/15/16 Senthil Michael MD [facility] [place] [address] Podiatry 12/21/14 documented as of this encounter
--- OUTSIDE RECORDS SUMMARY | 2024-07-15 03:04 | XMS_ITS | Encounter Summary ---
Author Organization [facility] Address [address] [facility] [place] [address] Care Team Providers Care Flash Oven Operator Name Role Phone Kit Kyle MD Primary Care Provider [phone] Reason for Visit * Reason Comments Lower Extremity Problem Encounter Details Date Type Department Care Team (Late st Contact Info) Description 05/17/2014 11:45 AM MEDICAL PATHOLOGIST Office Visit [facility] Medical [facility] - Internal Medicine [address] [place] [address] Kit Kyle MD [address] [place] [address] [address] [place] [address] Hip pain, right (Primary Dx); Rash Social History Tobacco Use Types Packs/Day Years [...] Progress Notes * Kit Kyle MD - 05/21/2014 7:46 AM CST Subjective: Chief complaint: Left leg pain after fall HPI: 73 year old white female presents to the office with complaints of right hip pain that began 2 daysafter a fall she had 2-3 weeks ago. Pain has been constant since it began, but is worse with walking, climbing stairs, and lying or sitting on the right side. Patient has been taking ibuprofen without improvement. She has also reported feeling stress related to providing care for her after he suffered from a stroke. Medications: Cymbalta 60 mg daily Mobic 7.5 mg daily Evista PO daily Aspirin 81 mg daily Neurontin 600 mg bid Lipitor 40 mg at HS Celebrex 200 mg daily [place] 3 1000 mg daily Calcium 600 + D 1 tablet daily Vitamin B12 daily Allergies: No known allergies Past medical history: Hyperlipidemia, osteoporosis Past surgical history: Umbilical hernia repair, cataract removal, knee arthroscopy, knee replacement, cardiac cath Social history: former smoker, quit Jul 1992, smoked .5 pack for 10 years, denies use of alcohol and illicit drugs. Patient reports caregiver stress. ROS: General: negative for fever or chills, weakness, or fatigue Musculoskeletal: positive for right hip pain for 2 weeks Peripheral vascular: trace right ankle edema Objective: Vital signs- BP 168/86, Pulse 68, Oral temp 98.1, Resp 18, Ht. 5???11?? , Wt 205.6 lb General: Healthy appearing white female is alert and oriented, appears well developed and well nourished. Cardiovascular: Normal rate, regular rhythm and normal heart sounds. Patient denies chest pain, palpitations or dyspnea. Pulmonary/chest: Lungs are clear to auscultation. Respiratory rate, depth and effort are normal. Musculoskeletal: Right hip pain that is worse with weight bearing and joint movement. Right hip is also tender on palpation. Assessment and Plan: 1. Contusion to right hip 2. Bilateral hand cracking and peeling Regarding right hip pain, hip and pelvic x-ray obtained to rule out bony fracture. Continue taking ibuprofen for discomfort. Patient will be notified if anything changes after radiologist reviews x-rays. Regarding hand cracking and peeling, discontinue use of rubber gloves and apply over the counter hydrocortisone cream liberally. CAL PATHOLOGIST documented in this encounter Plan of Treatment Not on file documented as of this encounter Results * XR PELVIS 1 OR 2 VW (05/17/2014 12:19 PM MEDICAL PATHOLOGIST) Anatomical Region Laterality Modality Pelvis Radiographic Mely ging 05/17/2014 1:52 PM MEDICAL PATHOLOGIST Impressions 05/17/2014 1:54 PM MEDICAL PATHOLOGIST 1. Negative for pelvic fracture. 2. 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 Narrative 05/17/2014 1:54 PM MEDICAL PATHOLOGIST X-RAY PELVIS HISTORY: ??Right hip pain after a fall 2 weeks ago. TECHNIQUE: ??Single AP view of the pelvis is submitted. COMPARISON: Right hip series today FINDINGS: ??Normal anatomic alignment of the bony pelvis is present. ??No acute fracture is seen. Sever degenerative changes of right hip are seen, with superior pbti-jy-jxkp joint space loss, with subchondral sclerosis and marginal spurring . ??The sacroiliac joints are patent. Soft tissue structure are unremarkable. Procedure Note Kathy Ronquillo MD - 05/17/2014 X-RAY PELVIS HISTORY: Right hip pain after a fall 2 weeks ago. TECHNIQUE: Single AP view of the pelvis is submitted. COMPARISON: Right hip series today FINDINGS: Normal anatomic alignment of the bony pelvis is present. No acute fracture is seen. Sever degenerative changes of right hip are seen, with superior fjiq-aa-vfmb joint space loss, with subchondral sclerosis and marginal spurring . The sacroiliac joints are patent. Soft tissue structure are unremarkable. IMPRESSION 1. Negative for pelvic fracture. 2. 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 Kit Kyle MD DIAGNOSTIC IMAGING O RDERABLES * XR HIP 2+ VW RIGHT (05/17/2014 12:19 PM MEDICAL PATHOLOGIST) Anatomical Region Laterality Modality Pelvis, Lower Extremity Radiogra phic Imaging 05/17/2014 1:39 PM MEDICAL PATHOLOGIST Impressions 05/17/2014 1:41 PM MEDICAL PATHOLOGIST Right femoroacetabular significant degenerative changes with decreased joint space. No evidence of fracture. Narrative 05/17/2014 1:41 PM MEDICAL PATHOLOGIST X-RAY, RIGHT HIP SERIES HISTORY: Status post fall 2 weeks ago TECHNIQUE: 2 views of the right hip are submitted. COMPARISON: AP pelvis from the same date. FINDINGS: There acetabular alignment is preserved, although the joint space is significantly decreased, with subchondral cysts and eburnation of the femoral head, consistent with degenerative changes. There is also hypertrophic spurring. There is no evidence of fracture. The pubic symphysis is well aligned. The sacroiliac joint alignment is maintained Procedure Note Nicole Arias MD - 05/17/2014 X-RAY, RIGHT HIP SERIES HISTORY: Status post fall 2 weeks ago TECHNIQUE: 2 views of the right hip are submitted. COMPARISON: AP pelvis from the same date. FINDINGS: There acetabular alignment is preserved, although the joint space is significantly decreased, with subchondral cysts and eburnation of the femoral head, consistent with degenerative changes. There is also hypertrophic spurring. There is no evidence of fracture. The pubic symphysis is well aligned. The sacroiliac joint alignment is maintained IMPRESSION Right femoroacetabular significant degenerative changes with decreased joint space. No evidence of fracture. Kit Kyle MD DIAGNOSTIC IMAGING O RDERABLES documented in this encounter Visit Diagnoses Diagnosis Hip pain, right- Primary Pain in joint, pelvic region and thigh Rash Rash and other nonspecific skin eruption Hip pain, right Pain in joint, pelvic region and thigh documented in this encounter Care Teams Flash Oven Operator Relationship Specialty Start Date End Date Kit Kyle MD [address] [place] [address] PCP - General Internal Medicine 12/19/13 12/15/16 documented as of this encounter
--- OUTSIDE RECORDS SUMMARY | 2024-07-15 03:04 | XMS_ITS | Encounter Summary ---
Author Organization [facility] Address [address] [facility] [place] [address] Care Team Providers Care Glass Sagger Name Role Phone Kit Kyle MD Primary Care Provider [phone] Reason for Visit * Reason Onset Date Comments Forms 06/14/2014 Encounter Details Date Type Department Care Team (Late st Contact Info) Description 06/14/2014 Telephone [facility] Medical [facility] - Internal Medicine [address] [place] [address] Kit Kyle MD [address] [place] [address] [address] [place] [address] Forms Social History Tobacco Use Types Packs/Day Years [...] encounter Miscellaneous Notes * Telephone Encounter - Becky Dinh - 06/14/2014 1:40 PM CST Received info to fill out from [facility]fusion ER APPRENTICE documented in this encounter Plan of Treatment Not on file documented as of this encounter Visit Diagnoses Not on filedocumented in this encounter Care Teams Glass Sagger Relationship Specialty Start Date End Date Kit Kyle MD [address] [facility] [address] [place] [address] PCP - General Internal Medicine 12/19/13 12/15/16 documented as of this encounter
--- OUTSIDE RECORDS SUMMARY | 2024-07-15 03:04 | XMS_ITS | Encounter Summary ---
Author Organization [facility] Address [address] [facility] [place] [address] Care Team Providers Care Candy Puller Name Role Phone Kit Kyle MD Primary Care Provider [phone] Reason for Visit * Reason Onset Date Comments Forms 06/05/2014 Encounter Details Date Type Department Care Team (Late st Contact Info) Description 06/05/2014 Telephone [facility] - Internal Medicine [address] [place] [address] Kit Kyle MD [address] [place] [address] [address] [place] [address] Forms Social History Tobacco Use [...] encounter Miscellaneous Notes * Telephone Encounter - Ayde Littlejohn MA - 06/05/2014 4:57 PM CST No, not that she said. She just wanted to let you know. [employer] * Telephone Encounter - Kit Kyle MD - 06/05/2014 2:50 PM CST Ok, do i need to do anything? [employer] * Telephone Encounter - Ayde Littlejohn MA - 06/05/2014 2:40 PM CST Pt wants you to know that she spoke with people with Infusion. [employer] documented in this encounter Plan of Treatment Not on file documented as of this encounter Visit Diagnoses Not on filedocumented in this encounter Care Teams Candy Puller Relationship Specialty Start Date End Date Kit Kyle MD [address] [facility] [address] [place] [address] PCP - General Internal Medicine 12/19/13 12/15/16 documented as of this encounter
--- OUTSIDE RECORDS SUMMARY | 2024-07-15 03:04 | XMS_ITS | Encounter Summary ---
Author Organization [facility] Address [address] [facility] [place] [address] Care Team Providers Care Senior Product Development Manager Name Role Phone Kit Kyle MD Primary Care Provider [phone] Senthil Michael MD Unavailable [phone] Encounter Details Date Type Department Care Team (Late st Contact Info) Description 12/13/2015 Therapy Visit EXTERNAL NON-[facility] DEPT Unknown, Provider [...] on filedocumented in this encounter Care Teams Senior Product Development Manager Relationship Specialty Start Date End Date Kit Kyle MD [address] [place] [address] PCP - General Internal Medicine 12/19/13 12/15/16 Senthil Michael MD [address] [place] [address] Podiatry 12/21/14 documented as of this encounter
--- OUTSIDE RECORDS SUMMARY | 2024-07-15 03:04 | XMS_ITS | Encounter Summary ---
Author Organization [facility] Address [address] [facility] [place] [address] Care Team Providers Care Repossession Agent Name Role Phone Kit Kyle MD Primary Care Provider [phone] Senthil Michael MD Unavailable [phone] Reason for Visit * Reason Comments Pain Back Encounter Details Date Type Department Care Team (Late st Contact Info) Description 02/11/2015 11:30 AM CDT Office Visit [facility] - Internal Medicine [address] [place] [address] Kit Kyle MD [address] [facility] [address] [place] [address] Bilateral low back pain without sciatica (Primary Dx) Social History Tobacco Use Types Packs/Day Years [...] Sign Reading Time Taken Comments Blood Pressure 120/76 02/11/2015 11:21 AM CDT Pulse 74 02/11/2015 11:21 AM CDT Temperature - - Respiratory Rate - - Oxygen Saturation - - Inhaled Oxygen Concentration - - Weight 90.3 kg (199 lb) 02/11/2015 11:21 AM CDT Height 180.3 cm (5' 11) 02/11/2015 11:21 AM CDT Body Mass Index 27.75 02/11/2015 11:21 AM CDT documented in this encounter Functional [...] Progress Notes * Kit Kyle MD - 02/11/2015 12:06 PM CDT Statin Encounter Diagnosis Name Primary? Bilateral low back pain without sciatica Yes Patient has had some low back pain for the past couple of weeks if not longer. It does not radiate it is bilateral low back. It is described is not a can it is clearly worse with certain activities. 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 She has not been accustomed to doing this sort of work but as her significant other has a stroke she has been taking on an increased workload I have reviewed the medication list, allergy list, and problem list as documented in Epic. The review of systems is as documented in the HPI OBJECTIVE: BP 120/76 mmHg Pulse 74 Wt 90.266 kg (199 lb) BMI 27.77 kg/m2 General appearance: alert, well appearing, and [...] no pedal edema, no clubbing or cyanosis Encounter Diagnosis Name Primary? Bilateral low back pain without sciatica Yes Orders Placed This Encounter ??? XR LUMBAR SPINE 2 OR 3 VW ??? meloxicam (MOBIC) 7.5 MG tablet As above * Maribel Polk - 02/11/2015 11:20 AM CDT Ernestine Salinas is a 74 y.o. female is here today c/o lower back pain. 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 documented in this encounter Plan of Treatment Not on file documented as of this encounter Visit Diagnoses Diagnosis Bilateral low back pain without sciatica- Primary documented in this encounter Care Teams Repossession Agent Relationship Specialty Start Date End Date Kit Kyle MD [address] [place] [address] PCP - General Internal Medicine 12/19/13 12/15/16 Senthil Michael MD [address] [place] [address] Podiatry 12/21/14 documented as of this encounter
--- OUTSIDE RECORDS SUMMARY | 2024-07-15 03:04 | XMS_ITS | Patient Health Summary ---
Author Organization [facility] Address [address] [place] [address] Care Team Providers Care Paperhanger Pipe Name Role Phone Senthil Michael MD Unavailable [phone] Note from [facility],non-owned Affiliates and Associated Physician Practices is amultiple site organization consisting of ambulatory clinics and hospital sitesin [place], [place], [place] and [place]. This disclosure is being madepursuant to the Care Everywhere program and may not contain all information available regarding this patient. Last updated 18.[facility] [employer] Allergies No known active allergies Medications * Be aware that medications may not be up to date on this document. Alwaysverify current medications with the patient. * aspirin (ASPIRIN) 81 MG tablet Take 81 mg by mouth once daily. * Raloxifene HCl (EVISTA PO) Take 60 mg by mouth. * atorvastatin (LIPITOR) 40 MG tablet Take 40 mg by mouth once daily * tiZANidine HCl 4 MG Take 4 mg by mouth 2 times daily * sertraline (ZOLOFT) 50 MG tablet(Started 12/18/2015) Take 1 Tab by mouth once daily 1 refill left Active Problems Problem Noted Date Diagnosed Date Lumbosacral radiculopathy 11/21/2015 Myalgia 11/21/2015 Spinal stenosis 10/29/2015 Neuropathy 12/21/2014 Hyperlipidemia 03/29/2008 Osteoporosis 03/29/2008 Resolved Problems Problem Noted Date Diagnosed Date Resolved Date Left leg pain 12/04/2009 01/03/2014 Immunizations * DT(Given 05/18/2009) Social History Tobacco Use Types Packs/Day Years [...] on file Sexual Orientation Not on file Last Filed Vital Signs Vital Sign Reading Time Taken Comments Blood Pressure 116/80 01/27/2016 10:04 AM CDT Pulse 94 12/25/2015 1:21 PM CDT Temperature 36.9 ??C (98.4 ??F) 12/25/2015 1:09 PM CD T Respiratory Rate 20 12/25/2015 1:21 PM CDT Oxygen Saturation 97% 12/25/2015 1:21 PM CDT Inhaled Oxygen Concentration - - Weight 83 kg (183 lb) 01/27/2016 10:04 AM CDT Height 177.8 cm (5' 10) 01/27/2016 10:04 AM CDT Body Mass Index 26.26 01/27/2016 10:04 AM CDT Procedures * FL SPINAL INJECTION OR ASPIRATE(Performed 12/25/2015) Performed for Spinal stenosis, unspecified spinal region * XR SPINE ENTIRE 4 OR 5VW(Performed 12/03/2015) Performed for Spinal stenosis, unspecified spinal region, Scoliosis of thoracolumbar spine, unspecified scoliosis type * DEXA BONE DENSITY 2 SITES(Performed 11/27/2015) Performed for Spinal stenosis, unspecified spinal region, Scoliosis of thoracolumbar spine, unspecified scoliosis type * FL SPINAL INJECTION OR ASPIRATE(Performed 11/26/2015) Performed for Spinal stenosis, unspecified spinal region * AMB REFERRAL TO NEUROSURGERY(Performed 11/06/2015) Performed for Spinal stenosis, unspecified spinal region * MRI LUMBAR SPINE WO CONTRAST(Performed 10/23/2015) Performed for Right lumbar radiculopathy * IMAGING/RADIOLOGY/XRAY RESULTS ORDER(Performed 05/24/2015) * CBC W AUTO DIFFERENTIAL(Performed 04/01/2015) Performed for Fatigue * COMPREHENSIVE METABOLIC PANEL(Performed 04/01/2015) Performed for Fatigue * VITAMIN D 25-HYDROXY(Performed 04/01/2015) Performed for Osteoporosis * T4 FREE(Performed 04/01/2015) Performed for Fatigue * TSH(Performed 04/01/2015) Performed for Fatigue * LIPID PROFILE REFLEX LDL DIRECT(Performed 10/24/2014) Performed for Routine general medical examination at a health care facility * COMPREHENSIVE METABOLIC PANEL(Performed 10/24/2014) Performed for Routine general medical examination at a health care facility * CBC W AUTO DIFFERENTIAL(Performed 10/24/2014) Performed for Routine general medical examination at a health care facility * ERYTHROCYTE SEDIMENTATION RATE(Performed 10/24/2014) Performed for Routine general medical examination at a health care facility * XR HIP RIGHT 2VW OR MORE(Performed 05/17/2014) Performed for Hip pain, right * XR PELVIS 1 OR 2VW(Performed 05/17/2014) Performed for Hip pain, right * HEMOGLOBIN A1C(Performed 03/09/2014) Performed for Neuropathy * TSH(Performed 03/09/2014) Performed for Neuropathy * VITAMIN B12 FOLATE PANEL(Performed 03/09/2014) Performed for Neuropathy * XR KNEE RIGHT 2VW OR LESS(Performed 03/09/2014) Performed for Right knee pain * XR FOOT LEFT 2VW(Performed 01/22/2014) Performed for Foot pain, left * CARDIAC PROCEDURE ORDER(Performed 01/08/2014) * CARDIAC CATH CONSULT(Performed 01/05/2014) * CBC W AUTO DIFFERENTIAL(Performed 01/03/2014) Performed for Other Nonspecific Abnormal Cardiovascular System Function Study * LIPID PROFILE REFLEX LDL DIRECT(Performed 01/03/2014) Performed for Routine general medical examination at a health care facility * COMPREHENSIVE METABOLIC PANEL(Performed 01/03/2014) Performed for Routine general medical examination at a health care facility * ECHOCARDIOGRAM STRESS(Performed 12/28/2013) Performed for Chest pain * MAMMO BILAT SCREENING(Performed 12/21/2013) Performed for Other screening mammogram * EKG 12-LEAD(Performed 12/20/2013) Performed for Chest pain * CARDIAC EKG ORDER(Performed 11/15/2010) * CARDIAC EKG ORDER(Performed 11/14/2010) * HGB HCT PANEL(Performed 11/14/2010) * VASCULAR LAB ORDER(Performed 12/04/2009) * CBC W AUTO DIFFERENTIAL(Performed 03/29/2008) Performed for Pruritus * COMPREHENSIVE METABOLIC PANEL(Performed 03/29/2008) Performed for Hyperlipidemia, Pruritus Results * FL GUIDED SPINAL INJECTION (12/25/2015 1:28 PM CDT) Only the most recent of2 resultswithin the time period is included. Anatomical Region Laterality Modality Spine Radiographic Mely ging 12/25/2015 2:30 PM CDT Narrative 12/25/2015 2:30 PM CDT Indication: Pain management. Findings: 2 views demonstrate lower lumbar localization for pain management. Fluoroscopy time: 17 seconds. Procedure Note Bladimir Arroyo MD - 12/25/2015 Indication: Pain management. Findings: 2 views demonstrate lower lumbar localization for pain management. Fluoroscopy time: 17 seconds. Jayden Carballo MD FLUOROSCOPY ORDERABL ES * XR SCOLIOSIS WITH BENDING (12/03/2015 1:50 [...] vertebral bodies are otherwise normally aligned with [id number] narrowing of the disc spaces and associated [...] vertebral bodies are otherwise normally aligned with [id number] narrowing of the disc spaces and associated [...] Shakeel Santana MD DIAGNOSTIC IMAGING O RDERABLES * DEXA BONE DENSITY 2 SITES (11/27/2015 7:48 AM CDT) Anatomical Region Laterality Modality Mammography 11/27/2015 12:1 6 PM CDT Impressions 11/27/2015 12:16 PM CDT LUMBAR: Normal Range. FEMUR: Moderate osteopenia Narrative 11/27/2015 12:16 PM CDT BONE MINERAL DENSITY STUDY: TECHNIQUE: Standard DEXA examination. Exam Location: [facility]: [employer] A ([place] 5.5.2) [facility]: [employer] QDR ([place] 3.4) [facility] [address]: [employer] 2005 INDICATION: ?? Post menopausal woman COMPARISON: [...] FRAX Calculation - 10 year Fracture Risks ([facility] Only): Frax Version 3.08: probability calculated for untreated patient. Major osteoporotic fracture, %: Not available. Hip fracture, %: Not available. Procedure Note Luis Cruz MD - 11/27/2015 BONE MINERAL DENSITY STUDY: TECHNIQUE: Standard DEXA examination. Exam Location: [facility]: [employer] A ([place] 5.5.2) [facility]: [employer] QDR ([place] 3.4) [facility] [address]: [employer] 2005 INDICATION: Post menopausal woman COMPARISON: No [...] FRAX Calculation - 10 year Fracture Risks ([facility] Only): Frax Version 3.08: probability calculated for untreated patient. Major osteoporotic fracture, %: Not available. Hip fracture, %: Not available. IMPRESSION LUMBAR: Normal Range. FEMUR: Moderate osteopenia Shakeel Santana MD DEXA ORDERABLES * AMB REFERRAL TO NEUROSURGERY (11/06/2015 7:18 AM CDT) Kit Kyle MD OUTPATIENT REFERRALS * MRI LUMBAR SPINE WO CONTRAST (10/23/2015 [...] normal caliber and signal intensity. Procedure Note Luis Cruz MD - 10/23/2015 HISTORY: Back and right-sided [...] No fracture Kit Kyle MD MR ORDERABLES * IMAGING/RADIOLOGY/XRAY RESULTS ORDER (05/24/2015) Anatomical Region Laterality Modality Other Scanned Document IMAGING * VITAMIN D 25-HYDROXY (04/01/2015 11:01 AM CDT) Vitamin D, 25 Hydroxy 56.32 30 - 100 ng/mL [facility] ACCOUNT BILL Comment: Vitamin D Status: ?Deficiency ? <20 ? ng/mL ?Insufficiency ?? 20-30 ??ng/mL ?Sufficiency ? 30-100 ng/mL ?Toxicity ? >100 ?ng/mL Blood specimen (specimen) BLOOD SPECIMEN / Unknown 04/01/2015 11:01 AM CDT 04/01/2015 1:54 PM CDT Narrative Resulting Agency Comment [facility] [address] [place] [address] ??[facility] [phone] Kit Kyle MD LAB - CHEMISTRY JOHNNY ASCENCIO [facility] ACCOUNT BILL * (ABNORMAL) CBC W AUTO DIFFERENTIAL (04/01/2015 11:01 AM CDT) Only the most recent of4 resultswithin the time period is included. WBC 7.7 4.4 - 10.7 x10E9/L [facility] ACCOUNT BILL RBC 4.71 3.80 - 5.20 x10E12/L [facility] ACCOUNT BILL Hemoglobin 14.2 12.0 - 15.6 gm/dL [facility] ACCOUNT BILL Hematocrit 44.4 35.9 - 45.5 % [facility] ACCOUNT BILL MCV 94.3 80.7 - 98.3 fL [facility] ACCOUNT BILL MCH 30.1 26.7 - 34.0 pg [facility] ACCOUNT BILL MCHC 32.0 30.8 - 35.9 gm/dL [facility] ACCOUNT BILL RDW 13.1 12.1 - 14.9 % [facility] ACCOUNT BILL Platelet Count 184 153 - 416 x10E9/L [facility] ACCOUNT BILL Comment:MPV FL BLOOD (SSM) 1 1.4 fl 9.4-12.9 Granulocytes % 73.1(H) 44.0 - 73.0 % [facility] ACCOUNT BILL Lymphocytes % 17.4(L) 20.0 - 43.0 % [facility] ACCOUNT BILL Monocytes % 7.5 5.0 - 13.0 % [facility] ACCOUNT BILL Eosinophils % 1.2 0.0 - 6.0 % [facility] ACCOUNT BILL Basophils % 0.5 0.0 - 2.0 % [facility] ACCOUNT BILL Granulocytes Absolute 5.62 2.01 - 7.14 x10E9/L [facility] ACCOUNT BILL Lymphocytes Absolute 1.34 1.07 - 3.94 x10E9/L [facility] ACCOUNT BILL Monocytes Absolute 0.58 0.26 - 1.07 x10E9/L [facility] ACCOUNT BILL Eosinophils Absolute 0.09 0 - 0.47 x10E9/L [facility] ACCOUNT BILL Basophils Absolute 0.04 0 - 0.08 x10E9/L [facility] ACCOUNT BILL Immature Granulocytes 0.3 0 - 1 % [facility] ACCOUNT BILL Immature Granulocytes Absolute 0.02 0.00 - 0.06 x10E9/L [facility] ACCOUNT BILL nRBC 0 /100 WBC [facility] ACCOUNT BILL Blood specimen (specimen) BLOOD SPECIMEN / Unknown 04/01/2015 11:01 AM CDT 04/01/2015 1:54 PM CDT Narrative Resulting Agency Comment [facility] [address] [facility] ??[facility] [phone] Kit Kyle MD LAB - HEMATOLOGY ORD ERABLES [facility] ACCOUNT BILL * COMPREHENSIVE METABOLIC PANEL (04/01/2015 11:01 AM CDT) Only the most recent of4 resultswithin the time period is included. Glucose 101 74 - 106 mg/dL [facility] ACCOUNT BILL BUN 15 7 - 21 mg/dL [facility] ACCOUNT BILL Creatinine 0.73 0.50 - 1.30 mg/dL [facility] ACCOUNT BILL eGFR by MDRD >60 mL/min/1.7 3m2 [facility] ACCOUNT BILL eGFR by MDRD >60 mL/min/1.7 3m2 [facility] ACCOUNT BILL Sodium 143 136 - 145 mmol/L [facility] ACCOUNT BILL Potassium 4.0 3.5 - 5.1 mmol/L [facility] ACCOUNT BILL Chloride 107 98 - 107 mmol/L [facility] ACCOUNT BILL CO2 28 22 - 31 mmol/L [facility] ACCOUNT BILL Calcium 9.0 8.5 - 10.1 mg/dL [facility] ACCOUNT BILL Protein Total 6.5 6.4 - 8.2 gm/dL [facility] ACCOUNT BILL Albumin 3.8 3.4 - 5.0 gm/dL [facility] ACCOUNT BILL Bilirubin Total 1.0 0.2 - 1.0 mg/dL [facility] ACCOUNT BILL Alkaline Phosphatase 110 38 - 126 U/L [facility] ACCOUNT BILL AST 17 5 - 40 U/L [facility] ACCOUNT BILL ALT 27 12 - 78 U/L [facility] ACCOUNT BILL Blood specimen (specimen) BLOOD SPECIMEN / Unknown 04/01/2015 11:01 AM CDT 04/01/2015 1:54 PM CDT Narrative Resulting Agency Comment [facility] [address] ??[facility] [place] [phone] Kit Kyle MD LAB - CHEMISTRY JOHNNY ASCENCIO Performing Organization Address City/[facility]/ZIP Co de Phone Number [facility] ACCOUNT BILL * TSH (04/01/2015 11:01 AM CDT) Only the most recent of2 resultswithin the time period is included. TSH 1.43 0.358 - 3.740 uIU/mL [facility] ACCOUNT BILL Blood specimen (specimen) BLOOD SPECIMEN / Unknown 04/01/2015 11:01 AM CDT 04/01/2015 1:54 PM CDT Narrative Resulting Agency Comment [facility] [address] ??[place] [phone] Kit Kyle MD LAB - CHEMISTRY JOHNNY ASCENCIO [facility] ACCOUNT BILL * T4 FREE (04/01/2015 11:01 AM CDT) T4 Free 1.05 0.65 - 1.34 ng/dL [facility] ACCOUNT BILL Blood specimen (specimen) BLOOD SPECIMEN / Unknown 04/01/2015 11:01 AM CDT 04/01/2015 1:54 PM CDT Narrative Resulting Agency Comment [facility] [address] ??[place] [phone] Kit Kyle MD LAB - CHEMISTRY JOHNNY ASCENCIO [facility] ACCOUNT BILL * LIPID PROFILE REFLEX LDL DIRECT (PO REF LAB) (10/24/2014 8:36 AM CDT) Only the most recent of2 resultswithin the time period is included. Cholesterol 159 100 - 199 mg/dL [facility] ACCOUNT BILL Triglycerides 104 0 - 149 mg/dL [facility] ACCOUNT BILL HDL Cholesterol 49 >39 mg/dL [facility] ACCOUNT BILL Comment: According to ATP-III Guidelines, HDL-C >59 mg/dL is considered a negative risk factor for CHD. VLDL Calculated 21 5 - 40 mg/dL [facility] ACCOUNT BILL LDL Calculated 89 0 - 99 mg/dL [facility] ACCOUNT BILL Comment NOT NEEDED [facility] ACCOUNT BILL Comment:Ancillary determined the test is not needed Cholesterol/HDL Ratio 3.2 0.0 - 4.4 ratio units [facility] ACCOUNT BILL Comment: ? T. Chol/HDL Ratio ? Men ??Women ? 1/2 Avg.Risk ??3.4 ?3.3 ? Avg.Risk ??5.0 ?4.4 ?2X Avg.Risk ??9.6 ?7.1 ?3X Avg.Risk 23.4 ?? 11.0 LDL/HDL Ratio 1.8 0.0 - 3.2 ratio units [facility] ACCOUNT BILL Comment: ? LDL/HDL Ratio ? Men ??Women ? 1/2 Avg.Risk ??1.0 ?1.5 ? Avg.Risk ??3.6 ?3.2 ?2X Avg.Risk ??6.2 ?5.0 ?3X Avg.Risk ??8.0 ?6.1 BLOOD SPECIMEN / Unknown 10/24/2014 8:36 AM CDT 10/24/2014 12:53 PM CDT Narrative Resulting Agency Comment [facility] [address] ??[facility] hospital [phone] Kit Kyle MD LAB - CHEMISTRY ORDE RABLES [facility] ACCOUNT BILL * SED RATE WESTERGREN (10/24/2014 8:36 AM CDT) Erythrocyte Sedimentation Rate Westergren 2 0 - 40 mm/hr [facility] ACCOUNT BILL Blood specimen (specimen) BLOOD SPECIMEN / Unknown 10/24/2014 8:36 AM CDT 10/24/2014 12:53 PM CDT Narrative Resulting Agency Comment [facility] [address] ??Critical access hospital [phone] Kit Kyle MD LAB - HEMATOLOGY ORD ERABLES Performing Organization Address City/[facility]/ZIP Co de Phone Number [facility] ACCOUNT BILL * XR HIP 2+ VW RIGHT (05/17/2014 12:19 PM STRUCTURAL DESIGN ENGINEER) Anatomical Region Laterality Modality Pelvis, Lower Extremity Radiogra phic Imaging 05/17/2014 1:39 PM STRUCTURAL DESIGN ENGINEER Impressions 05/17/2014 1:41 PM STRUCTURAL DESIGN ENGINEER Right femoroacetabular significant degenerative changes with decreased joint space. No evidence of fracture. Narrative 05/17/2014 1:41 PM STRUCTURAL DESIGN ENGINEER X-RAY, RIGHT HIP SERIES HISTORY: Status post [...] MD DIAGNOSTIC IMAGING O RDERABLES * XR PELVIS 1 OR 2 VW (05/17/2014 12:19 PM STRUCTURAL DESIGN ENGINEER) Anatomical Region Laterality Modality Pelvis Radiographic Mely ging 05/17/2014 1:52 PM STRUCTURAL DESIGN ENGINEER Impressions 05/17/2014 1:54 PM STRUCTURAL DESIGN ENGINEER 1. Negative for pelvic fracture. 2. 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 Narrative 05/17/2014 1:54 PM STRUCTURAL DESIGN ENGINEER X-RAY PELVIS HISTORY: ??Right hip pain after a fall 2 weeks ago. TECHNIQUE: ??Single AP view of the pelvis is submitted. COMPARISON: Right hip series today FINDINGS: ??Normal anatomic alignment of the bony pelvis is present. ??No acute fracture is seen. Sever degenerative changes of right hip are seen, with superior vpjc-rn-ocyl joint space loss, with subchondral sclerosis and [...] of right hip are seen, with superior wapt-to-obsj joint space loss, with subchondral sclerosis and marginal spurring . The sacroiliac joints are patent. Soft tissue structure are unremarkable. IMPRESSION 1. Negative for pelvic fracture. 2. 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 Kit Kyle MD DIAGNOSTIC IMAGING O RDERABLES * (ABNORMAL) HEMOGLOBIN A1C (03/09/2014 2:38 PM CDT) Hemoglobin A1c 5.8(H) 4.8 - 5.6 % [facility] ACCOUNT BILL Comment: ? . ? Increased risk for diabetes: 5.7 - 6.4 ? Diabetes: >6.4 ? Glycemic control for adults with diabetes: <7.0 Whole blood specimen (specimen) BLOOD SPECIMEN WITH EDTA / Unknown 03/09/2014 2:38 PM CDT 03/09/2014 6:03 PM CDT Narrative Resulting Agency Comment [facility] [address] ??Critical access hospital [phone] Kit Kyle MD LAB - CHEMISTRY JOHNNY ASCENCIO Performing Organization Address City/[facility]/ZIP Co de Phone Number [facility] ACCOUNT BILL * (ABNORMAL) VITAMIN B12 FOLATE PANEL (03/09/2014 2:38 PM CDT) [facility] Vitamin B12 1,250(H) 211 - 946 pg/mL [facility] ACCOUNT BILL Folate >19.9 >3.0 ng/mL [facility] ACCOUNT BILL Comment: A serum folate concentration of less than 3.1 ng/mL is considered to represent clinical deficiency. Blood specimen (specimen) BLOOD SPECIMEN / Unknown 03/09/2014 2:38 PM CDT 03/09/2014 6:03 PM CDT Narrative Resulting Agency Comment [facility] [address] ??Critical access hospital [phone] Kit Kyle MD LAB - CHEMISTRY JOHNNY ASCENCIO [facility] ACCOUNT BILL * XR KNEE 1 OR 2 VW [...] MD DIAGNOSTIC IMAGING O RDERABLES * XR FOOT 2 VW LEFT (01/22/2014 2:03 PM CDT) Anatomical Region Laterality Modality Ankle / Foot Radiographic Mely ging 01/22/2014 3:47 PM CDT Impressions 01/22/2014 3:51 PM CDT There is a mildly displaced fracture through the neck of the fifth metatarsal. Narrative 01/22/2014 3:51 PM CDT Left foot 4 views History: Low left foot pain Findings: There is a mildly displaced fracture through the neck of the fifth metatarsal. A moderate plantar calcaneal spur is seen. Mild degenerative change is seen in the midfoot. Moderate osteopenia is noted. Mild degenerative change is seen at the first MTP joint. Mild degenerative change is seen at the DIP joints of the second and third toes. Procedure Note Po Morgan MD - 01/22/2014 Left foot 4 views History: Low left foot pain Findings: There is a mildly displaced fracture through the neck of the fifth metatarsal. A moderate plantar calcaneal spur is seen. Mild degenerative change is seen in the midfoot. Moderate osteopenia is noted. Mild degenerative change is seen at the first MTP joint. Mild degenerative change is seen at the DIP joints of the second and third toes. IMPRESSION There is a mildly displaced fracture through the neck of the fifth metatarsal. Randi Sotelo [employer] DIAGNOSTIC IMAG ING ORDERABLES * CARDIAC PROCEDURE ORDER (01/08/2014 9:41 PM CDT) Provider Unknown CARDIAC SERVICES ORD ERABLES * CARDIAC CATH CONSULT (for Epic Reporting) (01/05/2014 12:00 PM CDT) 01/05/2014 12:0 0 PM CDT Narrative Transcriptions Rose Guzman MD - 01/05/2014 2:43 PM CDT [facility] CARDIAC CATHETERIZATION LABORATORY PATIENT NAME: YOANDY SALINAS MR#: [id number] ROOM#: [id number] CSN: [id number] PHYSICIAN: Rose Guzman M.D. SEX: F PHYS: Rose Guzman M.D. : 1940 AGE: 73 DATE: 01/05/2014 CASE #: CARDIAC CATHETERIZATION REPORT HISTORY: The patient is a 73-year-old female with a historyof chest pain and an abnormal stress test. PHYSICAL EXAM: GENERAL: She is alert and oriented x3. CARDIAC EXAM: Reveals normal S1, S2. LUNGS: Clear. ABDOMEN: Soft. VASCULAR: She has a normal Mendez's test bilaterally. VASCULAR ACCESS: A 6-Sol[place] Islander sheath in the left radial artery. MEDICATIONS: A cocktail of 3 mL of lidocaine, 3000 units of heparin, [id number] mcg of nitroglycerin were given through the sheath. ANGIOGRAPHIC CATHETERS USED: A 5-[place] Islander JL-3.5, JR-3.5, and pigtail. HEMODYNAMICS: Ascending aortic pressure was 135/70. Left ventricular pressure was 135/14. LEFT VENTRICULOGRAM: Left ventriculogram obtained in the standard AZUL projection revealed normal wall motion, estimated ejection fraction of60% without significant mitral regurgitation. SELECTIVE CORONARY ARTERIOGRAPHY: The left main coronary artery and its branches were angiographically normal. There was a moderate-sizeddiagonal vessel. The left circumflex artery and its branches were angiographicallynormal. The right coronary artery was dominant and angiographically normal. The patient tolerated the procedure well. The sheath was pulled and a TRband was placed over the puncture site. FINAL INTERPRETATION: 1. Angiographically normal coronary arteries. 2. Normal left ventricular function. [place]/MODL #:[id number] Rose Guzman MD ECHO ORDERABLES [facility] CARDIAC SERVICES * ECHOCARDIOGRAM STRESS (12/28/2013 2:49 PM CDT) Narrative [facility]ARD[facility]AC [facility] - 12/28/2013 2:49 PM CDT Rose Guzman MD ? 12/28/2013 ??2:49 PM ?? [facility] ?[address] ? [address] ? [place], [place] ??[address] PATIENT INFORMATION: Name: ? Yoandy Salinas : ?1940 Age: ?73 y.o. Height/Weight: ? BP 122/66 Pulse 65 Wt 86.183 kg (190 lb) BMI 26.51 kg/m2 Sex: ? female Clinical Assistant: ?Zohaib Lopez ? STRESS ECHO ?[employer] / [place] Protocol Date: ? 12/28/2013 REASON FOR PERFORMING TEST: ?Chest Pain RISK FACTORS: ? Hypertension: ??Negative ?? Hyper lipids: ? Negative Diabetes: ? Negative ?? Smoking History: ?? History Smoking status ? ? Former Smoker -- 0.5 packs/day for 20 years ? ? Quit date: 07/12/1992 Smokeless tobacco ? ? Never Used Comment: quit @ 20 yrs ago Family History: ?- CAD: ?? Negative Previous AR: ?? Negative Post PTCA: ?? Negative ? Resting EKG: ?? SR Predicted Heart Rate: 100% = ?149 ?? 85% = ?126 ?? __ BLOOD PRESSURE HEART RATE COMMENTS / SYMPTOMS PRETEST ??UPRIGHT ? PRETEST SUPINE ? STRESS ? 1 MINUTE ? 2 MINUTE ? 3 MINUTE 176/84 122 ?? 4 MINUTE ? 5 MINUTE ? 6 MINUTE ? 7 MINUTE ? 8 MINUTE ? 9 MINUTE ? 10 MINUTE ? 11 MINUTE ? 12 MINUTE ? 13 MINUTE ? 14 MINUTE ?? DOUBLE PRODUCT: ??[id number] 15 MINUTE ?? METS: ??4.6 18 MINUTE ? TEST TERMINATED @ ??3:01 ??MINUTES WITH HEART RATE OF 127 REASON FOR TERMINATION: ?? shortness of breath ??85% ACHIEVED ?? RECOVERY BLOOD PRESSURE HEART RATE COMMENTS / SYMPTOMS IMMEDIATE ? 1 MINUTE 156/94 72 mild chest discomfort 2 MINUTE ? 3 MINUTE 136/84 75 ?? 4 MINUTE ? 5 MINUTE ? 6 MINUTE 131/83 79 ?? 7 MINUTE ? 8 MINUTE ? 9 MINUTE ? RESULTS: Rose Guzman MD, FACC ? Electronically signed: 12/28/2013 STRESS ECHO RESULTS: ?Normal Baseline Echocardiogram: Grossly normal left ventricular cavity, normal regional wall thickness, normal regional wall motion, and normal LVEF Immediate post TMST, echocardiographic images were obtained within 60 seconds of the peak stress Significant improvement in LV systolic function with marked hyperkenesis of all visible regional wall segments, except the distal septum and apex CONCLUSION: Small area of ischemia noted in the apex Poor functional capacity Rose Guzman MD, FACC ?Electronically signed: 12/28/2013 Procedure Note Rose Guzman MD - 12/28/2013 1:45 PM CDT [facility] [address] [place] [address]. [id number] PATIENT INFORMATION: Name: Yoandy Salinas : 1940 Age: 73 y.o. Height/Weight: BP 122/66 Pulse 65 Wt 86.183 kg (190 lb) BMI26.51 kg/m2 Sex: female Clinical Assistant: Zohaib Lopez STRESS ECHO [employer] / BruceProtocol Date: 12/28/2013 REASON FOR PERFORMING TEST: Chest Pain RISK FACTORS: Hypertension: Negative Hyper lipids: Negative Diabetes: Negative Smoking History: History Smoking status ? ? Former Smoker -- 0.5 packs/day for 20 years ? ? Quit date: 07/12/1992 Smokeless tobacco ? ? Never Used Comment: quit @ 20 yrs ago Family History: - CAD: Negative Previous AR: Negative Post PTCA: Negative Resting EKG: SR Predicted Heart Rate: 100% = 149 85% = 126 BLOOD PRESSURE HEART RATE COMMENTS / SYMPTOMS PRETEST UPRIGHT PRETEST SUPINE STRESS 1 MINUTE 2 MINUTE 3 MINUTE 176/84 122 4 MINUTE 5 MINUTE 6 MINUTE 7 MINUTE 8 MINUTE 9 MINUTE 10 MINUTE 11 MINUTE 12 MINUTE 13 MINUTE 14 MINUTE DOUBLE PRODUCT: [id number] 15 MINUTE METS: 4.6 18 MINUTE TEST TERMINATED @ 3:01 MINUTES WITH HEART RATE OF 127 REASON FORTERMINATION: shortness of breath 85% ACHIEVED RECOVERY BLOOD PRESSURE HEART RATE COMMENTS / SYMPTOMS IMMEDIATE 1 MINUTE 156/94 72 mild chest discomfort 2 MINUTE 3 MINUTE 136/84 75 4 MINUTE 5 MINUTE 6 MINUTE 131/83 79 7 MINUTE 8 MINUTE 9 MINUTE RESULTS: Rose Guzman MD, FACC Electronically signed: 12/28/2013 STRESS ECHO RESULTS: Normal Baseline Echocardiogram: Grossly normal left ventricular cavity, normal regional wall thickness,normal regional wall motion, and normal LVEF Immediate post TMST, echocardiographic images were obtained within 60seconds of the peak stress Significant improvement in LV systolic function with marked hyperkenesisof all visible regional wall segments, except the distal septum and apex CONCLUSION: Small area of ischemia noted in the apex Poor functional capacity Rose Guzman MD, [facility] Electronically signed:12/28/2013 Danielle Bee APRN-COMMERCIAL PILOT ECHO ORDERABLES Performing Organization Address [facility] de Phone Number [facility] CARDIAC SERVICES * MAMM SCREENING DIGITAL IMAGE BILAT [id number] (12/21/2013 8:33 AM CDT) Anatomical Region Laterality Modality Breast Bilateral Mammography 01/09/2014 10:1 8 AM CDT Impressions 01/09/2014 10:19 AM CDT 1. ??Stable bilateral benign changes. 2. ??No mammographic evidence of malignancy. BI-RADS Category (2): ??Benign finding(s). RECOMMENDATION: Return for mammograms in one year or sooner if clinically indicated. Narrative 01/09/2014 10:19 AM CDT BILATERAL DIGITAL SCREENING MAMMOGRAPHY HISTORY: Screening mammogram. Positive family history of breast cancer, including sister in her 30s. TECHNIQUE: Bilateral digital mammography was obtained in the craniocaudal and mediolateral oblique projections. ??Image interpretation was assisted with CAD analysis. COMPARISON: Mammography 08/01/2009 and 08/31/2006 FINDINGS: Breast composition: Scattered fibroglandular densities Stable bilateral benign changes are present, with no suspicious interval change. Scattered benign coarse punctate calcifications are seen in the right lower inner breast. No worrisome mass, suspicious microcalcifications, or other abnormality seen. Kit Kyle MD MAMMO ORDERABLES * EKG 12-LEAD (12/20/2013) Danielle Bee PRESSER HAND-COMMERCIAL PILOT ECG ORDERABLES Performing Organization Address [facility] de Phone Number [facility] RESULT SCAN * CARDIAC EKG ORDER (11/15/2010 9:49 AM CDT) Only the most recent of2 resultswithin the time period is included. Narrative Procedure Note Document, Scanned - 11/15/2010 7:09 AM CDT Scanned Document CARDIAC SERVICES ORD ERABLES * HGB HCT PANEL (11/14/2010 1:50 AM CDT) Hemoglobin 12.7 12.0 - 16.0 gm/dl [facility] Hematocrit 39.3 36.0 - 48.0 % [facility] BLOOD SPECIMEN / Unknown 11/14/2010 1:50 AM CDT 11/14/2010 2:41 AM CDT Shawna Flores MD LAB - HEMATOLOGY ORD ERABLES [facility] [address] [place] [address] * VASCULAR LAB ORDER (12/04/2009 12:00 AM CDT) Anatomical Region Laterality Modality Other 12/04/2009 Narrative Procedure Note Joselito Chowdhury MD - 12/04/2009 12:00 AM CDT [facility] ACCREDITED - Vascular Lab Report PATIENT NAME:YOANDY SALINAS [facility]#:[id number] ROOM#: SEX:F ADMISSION DATE:12/04/2009DOB:1940 DATE: 12/04/2009 VENOUS DUPLEX EXAMINATION OF THE LEFT LOWER EXTREMITY INDICATION: The patient is a 69-year-old with left leg pain. DESCRIPTION: The deep veins and greater saphenous vein of the left legwere examined with duplex and color flow imaging according to the requestof the ordering physician. The right common femoral vein was examined perprotocol. Bilaterally, the common femoral veins as well as the leftfemoral, popliteal, posterior tibial, peroneal, and greater saphenousveins were found to have spontaneous and phasic flow. No echogenicmaterial could be identified within the lumens. All vessels werecompressible. There was appropriate augmentation with distal compression.Reflux was not noted with proximal compression. IMPRESSION: 1.There is no evidence of deep venous thrombosis or greater saphenousvein thrombosis in the left leg by this examination. 2.Venousinsufficiency was not demonstrated in the left leg. DICTATOR: Jose SMITH/Katy #:[id number] cc:Dr. Francisco Rubio NP Joselito Chowdhury MD VASCULAR LAB ORDERA BLES Care Teams Paperhanger Pipe Relationship Specialty Start Date End Date Senthil Michael MD [facility] [place] [address] Podiatry 12/21/14
--- OUTSIDE RECORDS SUMMARY | 2024-07-15 03:04 | XMS_ITS | Encounter Summary ---
Author Organization [facility] Health Address [address] [place] [address] Care Team Providers Care School Plant Consultant Name Role Phone Kit Kyle MD Primary Care Provider Senthil Michael MD Unavailable [phone] Reason for Visit * Procedure (Routine) - Closed Specialty Diagnoses / Procedures Referred By Contac t Referred To Contact Pain Management Procedures SD INJ,FORAMEN,L/S,1 LEVEL SD INJ,FORAMEN,L/S,ADDL LEVELS Jayden Carballo MD [facility] [address] [address] [facility] Interv Pain Mgmt [address] [place] [address] Referral ID Status Reason Start Date Expiration Date Visits Re quested Visits Authorized [id number] Closed 11/26/2015 05/24/2016 3 3 Encounter Details Date Type Department Care Team (Latest Contact Info) Description 11/26/2015 11:07 AM CDT - 11/26/2015 11:59 PM CDT Hospital Encounter [facility] Health Pain Care [address] [place] [id number] Jayden Carballo MD [address] [place] [address] [place] [id number] Discharge Disposition: Home or Self Care Social [...] Sign Reading Time Taken Comments Blood Pressure 154/104 11/26/2015 11:40 AM CDT Pulse 84 11/26/2015 11:40 AM CDT Temperature 36.4 ??C (97.6 ??F) 11/26/2015 11:13 AM C DT Respiratory Rate 20 11/26/2015 11:40 AM CDT Oxygen Saturation 100% 11/26/2015 11:40 AM CDT Inhaled Oxygen Concentration - - Weight 83.9 kg (185 lb) 11/26/2015 11:13 AM CDT Height 177.8 cm (5' 10) 11/26/2015 11:13 AM CDT Body Mass Index 26.54 11/26/2015 11:13 AM CDT documented in this encounter Functional [...] No 01/05/2014 documented as of this encounter Discharge Instructions * Patient Instructions* Britt Figueroa RN - 11/26/2015 7:26 AM CDT PROCEDURE DISCHARGE INSTRUCTIONS The procedure that was done for you today is called: Fluoroscopically Guided right L2-3 and L3-4 Transforaminal Lumbar Epidural Steroid Injection ACTIVITY: Do not sit in a bathtub, hot tub or swimming pool for the next 24 hrs. You may shower. -You will be restricted to light activity for 24 hours; no lifting more than 10 lbs if you've had aprocedure in your neck, or 20 lbs if you've had a procedure on your back. -You may use an ice application INTERMITTENTLY following a procedure for the first 24 hours. After 24 hours you may use it either heat or ice. This may help relieve the discomfort. -If you are a diabetic, your blood sugar may rise for the next 4-5 days. You may have to adjust your medication accordingly. -If you are prone to swelling, the steroids could increase your swelling. Notify your primary care doctor if you gain more than 3lbs in one day or 5lbs in one week. MEDICATIONS: Continue your current medications as prescribed with the following exceptions: If you take any blood thinning medications such as Coumadin or Plavix, do not resume for 24 hours after your procedure. If you need a medication refill, please contact your pharmacy and they will send us a refill request. ADDITIONAL NOTES: Watch for signs of infection, such as fever, chills and unusual discharge from procedure site. Please contact our office immediately with any of these symptoms. Our goal is to make courtesy calls to patients within 24 hrs of their procedure. If you feel the need to call the nursing staff before then, please feel free to do so. Patient call backs are not doneuntil after 4pm on most days. Our office is open Wednesday through Wednesday from 8:00 - 4:30. You can contact us during those hours [phone]. Please contact your primary care physician for any concerns outside of normal business hours. In the case of an emergency, please call 911 or go to the nearest emergency department. For further information about our clinic, please visit our website at: [email or web address] documented in this encounter Medications at Time of Discharge [...] 02/11/2015 12/18/2015 documented as of this encounter Progress Notes * Misti Bustillo RN - 12/02/2015 10:51 AM CDT 12/02/15 1050 Phone Call Status Call status Brief Message * Misti Bustillo RN - 11/27/2015 10:55 AM CDT 11/27/15 1054 Phone Call Status Call status Brief Message documented in this encounter H&P Notes * Jayden Carballo MD - 11/26/2015 11:26 AM CDT HPI: Ernestine Salinas is a 75 y.o. White/ female referred by No ref. provider found (PCP is Kit Kyle MD) for evaluation and treatment of right sided low back pain with radiation to the anterior right leg to the right knee.?? This started in May without an inciting event.? The symptoms have been progressive. The pain is rated 8 /10, and is located at the right lumbar area or radiating to right leg(s). The pain is described as sharp or stabbing and is all day. ?? Symptoms are exacerbated by flexion/extension, standing and walking. ?? Factors which relieve the pain include change in body position and rest. ?? Other associated symptoms include tingling and numbness in the bilateral feet;?? She feels like herright leg gives out. Previous history of symptoms: never. ?? Patient denies bowel/bladder symptoms, fever, chills, infections, or weakness. Prior Pain Medications - tramadol, gabapentin, cymbalta, Psychiatric History: Difficulty Sleeping? Yes History of Depression, Anxiety, Suicidal Ideation, or other psychiatric disorder? No History of Substance Abuse or Addiction? No PREVIOUS TREATMENTS: Physical Therapy - Not Improved PREVIOUS TESTING: MRI 11/06/15:?? L2-3: Disc bulging and spurring to the right with right foraminal stenosis and right lateral recess stenosis. There is mild facet hypertrophy and epidural fat causing a mild degree of central canal is analysis. ?? L3-4: Broad-based disc bulging and spurring with facet hypertrophy causing a moderate degree of canal stenosis with bilateral lateral recess and foraminal stenosis left greater than right. ?? L4-5: Disc bulging and advanced facet hypertrophy. There is considerable compromise of the thecal sac narrowing both the AP and lateral diameter to 6 mm or less with bilateral lateral recess and foraminal stenosis. No Known Allergies ? Past Medical History?? Diagnosis?? Date? Other and unspecified hyperlipidemia? Hyperlipidemia? Arthritis? Hepatitis? when she was 14 yrs old? Osteoporosis? Past Surgical History?? Procedure?? Laterality?? Date? Hernia repair, umbilical? Cataract removal? bilateral? Knee arthroscopy? left? Knee replacement? 11/13/2010? LEFT UNI ? Cardiac cath? 01/05/2014? Dr. Guzman? Family History?? Problem?? Relation?? Age of Onset? Breast Cancer after age 50 or unknown?? Sister? Cancer Breast?? Sister? late 30's? Cancer?? Father? lung? Cancer?? Sister? breast cancer? Current Outpatient Prescriptions?? Medication?? Sig?? Dispense?? Refill? methylPREDNISolone (MEDROL DOSEPAK) 4 MG tablet?? Take by mouth as directed?? 21 Tab?? 0? atorvastatin (LIPITOR) 40 MG tablet?? Take 40 mg by mouth once daily? tiZANidine HCl 4 MG?? Take 4 mg by mouth 2 times daily? ibuprofen (MOTRIN) 800 MG tablet?? Take 1 Tab by mouth every 6 hours as needed for Pain?? 50 Tab?? 0? Raloxifene HCl (EVISTA PO)?? Take 60 mg by mouth.? aspirin (ASPIRIN) 81 MG tablet?? Take 81 mg by mouth once daily.? gabapentin (NEURONTIN) 300 MG capsule?? Take 600 mg by mouth at bedtime.? traMADol (ULTRAM) 50 MG tablet?? 1 Tab 3 times daily? DULoxetine (CYMBALTA) 60 MG capsule?? Take 1 Cap by mouth once daily (Patient not taking: Reported on 11/21/2015)?? 30 Cap?? 5? meloxicam (MOBIC) 7.5 MG tablet?? Take 1 Tab by mouth once daily (Patient not taking: Reported on 11/21/2015)?? 90 Tab?? 3? No current facility-administered medications for this visit.?? Blood Thinning Medications (such as Plavix, Coumadin, Warfarin, Aggrenox, Heparin, or Aspirin): No ? Social History History? Social History? Marital Status:? Spouse Name:?? N/A? Number of Children:?? N/A? Years of Education:?? N/A? 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 Social History Main Topics? Smoking status:?? Former Smoker -- 0.50 packs/day for 20 years? Quit date:?? 07/12/1992? Smokeless tobacco:?? Never Used? Comment: quit @ 20 yrs ago? Alcohol Use:?? No? Comment: rare? Drug Use:?? No? Sexual Activity:?? Not on file? Other Topics?? Concern? Not on file? Social History Narrative? Merged History Encounter ? Occupation:?? retired Currently Working:?? No REVIEW OF SYSTEMS: GEN: Patient indicates difficulty sleeping and sleeping problems. EYES: Denies blurred vision, diplopia, pain, or photophobia. ENT: Denies hearing loss, ear pain, nose bleeds. RESP: Denies shortness of breath, cough, or wheezing. CV: Denies chest pain, palpitations, irregular heart beat, syncope, ELIAS, or swelling of the feet orankles. GI: Denies dysphagia,abdominal pain, nausea, vomiting, diarrhea, constipation, or bloody/tarry stools. NEURO: Denies headache, dizziness, or seizures. MS: Indicates moderate joint swelling, backpain and stiffness. HEME: Denies easy bleeding, or bruising. ENDO:Denies cold/heat intolerance. PSYCH: Denies depression, anxiety, sleep distubances,or suicidal tendencies. ? Objective:?? Vitals: BP 133/79 mmHg Pulse 82 Resp 18 Ht 1.803 m (5' 11) Wt 83.915 kg (185 lb) BMI 25.81 kg/m2 SpO2 99% ? Constitutional:?alert, cooperative, no distress? Circulation: Carotid and pedal pulses are intact and symmetrical,?? no carotid bruits Eyes: sclera and conjunctiva clear, EOMI and PERRL, lids normal Ears: canals clear, hearing intact to voice Nose: nares open; no septal deviation is noted Throat: no mucous membrane abnormalities ? no masses, thyroid not enlarged, no adenopathy ?? Cardiovascular? regular rhythm, regular rate?? Edema: ?none? Respiratory:?? Normal chest wall excusion, unlabored breathing? Musculoskelatal ? Gait:?? Normal?? Focused Exam:?? CERVICAL EXAM: ROM:Normal for flexion, Normal for extension, Rotation normal bilaterally, Side-bending normal bilaterally Spurling's:Negative for neck/upper extremity pain bilaterally Facet pain:No facet pain bilat. Spasm:No paraspinous muscle spasm appreciated Paraspinous:No paraspinous tenderness bilat. Trapezius:No trapezius tenderness bilat. Occipital:No occipital tenderness bilat., THORACIC EXAM: Facet pain: No facet pain bilat. LUMBAR EXAM: ROM:Flexion is moderately reduced, Extension is moderately reduced, Rotation to the left is moderately reduced, Rotation to the right is moderately reduced, Side bending left is moderately reduced , Side bending right is moderately reduced ROM limited by pain and facet loading Facet pain:Right facet pain to palpation. Paraspinous:Right paraspinous tenderness to palpation. Spasm:Location: moderate middle right spasms with associated tenderness to palpation.?? Straight-leg raise:right with low back pain?? and with lower extremity pain Kyphosis:No Scoliosis:No SACROILIAC JOINT EXAM: Sacroiliac Joint:Thigh thrust: right Fabers: right Sacral thrust: Yes NEUROLOGIC EXAM: ?? Strength LE:?? abductor 5/5; quadraceps 5/5; hamstrings 5/5; adductors 5/5; iliopsoas 5/5, anteriortibial 5/5; gastrosolues 5/5; EHL 5/5; peroneal posterior tibial 5/5 Sensation: decreased sensation to soft touch and pin prick ?? Reflexes: 2+ bilaterally? Skin:?? No rashes?? Psychiatric:?? Normal affect?? Labs: No results for input(s): COQVFEYPM8JZ, SFRBBYJG5HW, ZZE7GENO, MRCLWGVSNB1I, OYZDNRAPUE4H, YEMFECUPFL0Q, ETKWOYEUO3DC, MCOPTTARY2IK, HCEOMI2SU, OFGUYRUTJO8K in the last 34517 hours. Invalid input(s): [id number] ?? Recent Labs?? Component Name?? 04/01/15 ??1101?10/24/14 ??0836?01/03/14 ??1512?? SODIUM?143?143?142?? POTASSIUM?4.0?4.4?3.9?? CHLORIDE?107?102?104?? CO2?28?26?26?? BUN?15?17?12?? CREATININE?0.73?0.84?0.74?? GLUCOSE?101?99?95?? CALCIUM?9.0?9.1?8.7? No results for input(s): INR in the last 63914 hours. No results for input(s): PT in the last 90782orfer. No results for input(s): PTT in the last 31989 hours. Labs Reviewed: Yes Images Reviewed: Yes Comorbid Conditions: Hypercholesterolemia ? Assessment:?? Based on the patient's complaints, physical examination, and imaging data, there appear to be the following diagnoses: ? ICD-10-CM? 1.?? Spinal stenosis, unspecified spinal region?? M48.00? 2.?? Neuropathy?? G62.9? 3.?? Lumbosacral radiculopathy?? M54.17? 4.?? Myalgia?? M79.1? Plan:?? 1.?? The pain is entirely consistent with right sided L2 and L3 radiculopathy.?? I will schedule her for right L2-3 and L3-4 TFESI.?? documented in this encounter Procedure Notes * Jayden Carballo MD - 11/26/2015 11:46 AM CDTProcedure(s): SD NJX AA&/STRD TFRML EPI LUMBAR/SACRAL 1 LEVEL; SD NJX AA&/STRD TFRML EPI LUMBAR/SACRAL EA ADDL Pre-Procedure Diagnose(s): Lumbosacral radiculopathy Post-Procedure Diagnose(s): Lumbosacral radiculopathy Fluoroscopically Guided right L2-3 and L3-4 Transforaminal Lumbar Epidural Steroid Injection Indication procedure: This is a 75-year-old female with chronic intractable lumbosacral radiculopathy. She has tried and failed multiple treatment modalities. She presents today for palliation of herpain Consent: The patient was identified in the holding area and the operative permit was explained and signed. Ihave discussed with the patient the risks, benefits, side effects and complications of a fluoroscopically guided transforaminal lumbar nerve root steroid injection. I have answered the patient's questions regarding the procedure and have given the patient the opportunity to refuse the procedure. I also have discussed alternative methods of treatment. The patient stated understanding of the procedure and wished to proceed with a right L2-3 and L3-4 level fluoroscopically guided transforaminal lumbar nerve root steroid injection. Monitoring: The patient was taken to the fluoroscopic suite and placed on a C-arm table in the prone position. Noninvasive blood pressure, pulse oximetry, and an EKG tracing were used to monitor the patient continuously throughout the procedure. A nurse was in attendance for the duration of the procedure to carefully monitor the patient. Please refer to the nursing record for vital sign documentation and forany doses of sedatives and medications. I was present and gave the order for any medications given to the patient. Preparation: Chloroprep preparation was performed twice, then sterile drapes were applied to the lower region ofthe back. Procedure: The procedure was performed at the above mentioned level(s).The C-arm was positioned in the obliqueview until the pedicle and articulating processes were clearly visible. Using fluoroscopic guidance, a 25 gauge 3.5 inch needle was placed on the six o'clock position of the pedicle. The needle was then slowly walked off the lamina into the nerve root foramen. A lateral flouroscopic projection showed the needle tip entering the superior posterior aspect of the respective intervertebral foramen. Using AP fluoroscopic projection, 0.4cc of Omnipaque (180mg/cc) was injected through the needle and aneurogram was produced. There was clear dye spread through the nerve root sheath and into the epidural space. There was no cerebrospinal fluid or blood aspirated from the needle. A preservative free solution of 6 mg betamethasone and 1 ml saline and 1 ml 0.25 % bupivacaine was injected. There were no signs or symptoms of intrathecal or intravascular injection. The needle was removed intact. The pa tient tolerated the procedure well and there were no complications. Recovery: The patient was taken to the recovery area where they remained in stable condition. Postprocedure instructions were given to the patient and a follow up appointment was confirmed. The patient was also discharged with information on how to reach the clinic or ad operations intern physician at anytime for questions or complaints. Estimated blood loss: Minimal Jayden Carballo MD 11/26/2015 documented in this encounter Plan of Treatment Not on file documented as of this encounter Visit Diagnoses Not on filedocumented in this encounter Administered Medications Inactive Administered Medications - up to 3 most recent administrations Medication Order MAR Action Action Date Dose Rate Site 0.9% NaCl injection 1 mL 1 mL, Other, ONCE, 1 dose, On Wed11/26/15 at 1200 $ Given 11/26/2015 11:40 AM CDT 1 mL bupivacaine PF (MARCAINE PF) 0.25 % injection Infiltration, INTRA-PROCEDURE MULTIPLE, Starting on Wed11/25/15 at 2118, Until Wed11/27/15 at 0127, Administer per physician direction. $ Given 11/26/2015 11:40 AM CDT 1 mL dexamethasone (DECADRON) injection 10 mg 10 mg, Epidural, INTRA-PROCEDURE MULTIPLE, Starting on Wed11/25/15 at 2118, Until Wed11/27/15 at 0127, Administer per physician direction $ Given 11/26/2015 11:40 AM CDT 8 mg iohexol (OMNIPAQUE 180) contrast Intraspinal, INTRA-PROCEDURE ONCE, 1 dose, On Wed11/25/15 at 2118, Intra-epidural Administer per physician direction. $ Given - Contrast 11/26/2015 11:40 AM CDT 2 mL lidocaine (XYLOCAINE MPF) 1 % injection Epidural, INTRA-PROCEDURE MULTIPLE, Starting on Wed11/25/15 at 2118, Until Wed11/27/15 at 0127, Administer per physician direction. $ Given 11/26/2015 11:40 AM CDT 3 mL sodium bicarbonate 8.4 % injection 0.5 mL 0.5 mL, Infiltration, ONCE, 1 dose, On Wed11/26/15 at 1200 $ Given 11/26/2015 11:40 AM CDT 0.5 mL documented in this encounter Care Teams School Plant Consultant Relationship Specialty Start Date End Date Kit Kyle MD [address] [place] [address] PCP - General Internal Medicine 12/19/13 12/15/16 Senthil Michael MD [facility] [place] [address] Podiatry 12/21/14 documented as of this encounter
--- OUTSIDE RECORDS SUMMARY | 2024-07-15 03:04 | XMS_ITS | Referral Summary ---
Author Organization [facility] Address [address] [facility] [place] [address] Care Team Providers Care Magistrate Name Role Phone Senthil Michael MD Unavailable Source Comments [facility],non-owned Affiliates and Associated Physician Practices is amultiple site organization consisting of ambulatory clinics and hospital sitesin [place], [place], [place] and [place]. This disclosure is being madepursuant to the Care Everywhere program and may not contain all information available regarding this patient. Last updated 18.[facility] Allergies No known active allergies Medications * Be aware that medications may not be up to date on this document. Alwaysverify current medications with the patient. Medication Sig Dispensed Refills Start Date End Date Status aspirin (ASPIRIN) 81 MG tabletIndications:Arnaldo mars general medical examination at a health care facility Take 81 mg by mouth once daily. Active Raloxifene HCl (EVISTA PO) Take 60 mg by mouth. Active atorvastatin (LIPITOR) 40 MG tablet Take 40 mg by mouth once daily Active tiZANidine HCl 4 MG Take 4 mg by mouth 2 times daily Active sertraline (ZOLOFT) 50 MG tablet Take 1 Tab by mouth once daily 30 Tab 1 12/18/2015 Active Active Problems Problem Noted Date Diagnosed Date Lumbosacral radiculopathy 11/21/2015 Myalgia 11/21/2015 Spinal stenosis 10/29/2015 Neuropathy 12/21/2014 Hyperlipidemia 03/29/2008 Osteoporosis 03/29/2008 Resolved Problems Problem Noted Date Diagnosed Date Resolved Date Left leg pain 12/04/2009 01/03/2014 Immunizations Name Administration Dates Next Due DT 05/18/2009 Social History Tobacco Use Types Packs/Day Years [...] Mass Index 26.26 01/27/2016 10:04 AM CDT Functional Status Functional Status Response Date of [...] person have difficulty concentrating/remembering/making decisions? No 01/05/2014 Plan of Treatment Not on file Procedures Procedure Name Priority Date/Time Associated Diagnosis Comments DEXA BONE DENSITY 2 SITES Routine 11/27/2015 7:48 AM CDT Spinal stenosis, unspecified spinal region Scoliosis of thoracolumbar spine, unspecified scoliosis type from Last 3 Months or Most Recently Relevant to Health Maintenance Results * DEXA BONE DENSITY 2 SITES (11/27/2015 7:48 AM CDT) Anatomical Region Laterality Modality Mammography 11/27/2015 12:1 6 PM CDT Impressions 11/27/2015 12:16 PM CDT LUMBAR: Normal Range. FEMUR: Moderate osteopenia Narrative 11/27/2015 12:16 PM CDT BONE MINERAL DENSITY STUDY: TECHNIQUE: Standard DEXA examination. Exam Location: [facility]: [place] ([place] 5.5.2) [facility]: [place] ([place] 3.4) [facility] [address]: IOCS 2005 INDICATION: ?? Post menopausal woman COMPARISON: [...] FRAX Calculation - 10 year Fracture Risks ([facility] Only): Frax Version 3.08: probability calculated for untreated patient. Major osteoporotic fracture, %: Not available. Hip fracture, %: Not available. Procedure Note Luis Cruz MD - 11/27/2015 BONE MINERAL DENSITY STUDY: TECHNIQUE: Standard DEXA examination. Exam Location: [facility]: [place] ([place] 5.5.2) [facility]: [place] ([place] 3.4) [facility] [address]: [place]OCS 2005 INDICATION: Post menopausal woman COMPARISON: No [...] FRAX Calculation - 10 year Fracture Risks ([facility] Only): Frax Version 3.08: probability calculated for untreated patient. Major osteoporotic fracture, %: Not available. Hip fracture, %: Not available. IMPRESSION LUMBAR: Normal Range. FEMUR: Moderate osteopenia Shakeel Santana MD DEXA ORDERABLES from Last 3 Months or Most Recently Relevant to Health Maintenance Advance Directives * Full Code (Latest Code Status on File) Date Activated Date Inactivated Comments 11/13/2010 12:02 PM 11/15/2010 1:04 AM Care Teams Magistrate Relationship Specialty Start Date End Date Senthil Michael MD [address] [facility] [place] [id number] Podiatry 12/21/14
--- OUTSIDE RECORDS SUMMARY | 2024-07-15 03:04 | XMS_ITS | Encounter Summary ---
Author Organization [facility] Address [address] [place] [address] Care Team Providers Care Paving Stone Installer Name Role Phone Kit Kyle MD Primary Care Provider [phone] Senthil Michael MD Unavailable [phone] Reason for Visit * Reason Comments Fatigue Appetite Suppression Encounter Details Date Type Department Care Team (Late st Contact Info) Description 04/01/2015 10:45 AM CDT Office Visit [facility] - Internal Medicine [address] [place] [address] Kit Kyle MD [address] [place] [address] Fatigue (Primary Dx); Osteoporosis Social History Tobacco Use Types Packs/Day [...] Sign Reading Time Taken Comments Blood Pressure 130/82 04/01/2015 10:36 AM CDT Pulse 60 04/01/2015 10:36 AM CDT Temperature - - Respiratory Rate - - Oxygen Saturation - - Inhaled Oxygen Concentration - - Weight 86.6 kg (191 lb) 04/01/2015 10:36 AM CDT Height 180.3 cm (5' 11) 04/01/2015 10:36 AM CDT Body Mass Index 26.64 04/01/2015 10:36 AM CDT documented in this encounter Functional [...] Progress Notes * Kit Kyle MD - 04/01/2015 10:54 AM CDT Weight Encounter Diagnoses Name Primary? Fatigue Yes ??? Osteoporosis Patient has had some fatigue and poor appetite for the past 3 or 4 months she is been very stressedout she has a fair amount of property she has to take care of now that her significant other has suffered a stroke. She finds all rather overwhelming. She does take meloxicam for some aches and Current Outpatient Prescriptions Medication ??? meloxicam (MOBIC) 7.5 MG tablet ??? Raloxifene HCl (EVISTA PO) ??? aspirin (ASPIRIN) 81 MG tablet ??? gabapentin (NEURONTIN) 300 MG capsule No current facility-administered medications for this visit. I have reviewed the medication list, allergy list, and problem list as documented in [facility]. The review of systems is as documented in the HPI OBJECTIVE: BP 130/82 mmHg Pulse 60 Wt 86.637 kg (191 lb) BMI 26.65 kg/m2 General appearance: alert, well appearing, and [...] pedal edema, no clubbing or cyanosis Encounter Diagnoses Name Primary? Fatigue Yes ??? Osteoporosis Orders Placed This Encounter ??? TSH ??? T4 FREE ??? VITAMIN D 25-HYDROXY ??? COMPREHENSIVE METABOLIC PANEL ??? 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 female is here today c/o fatigue and no appetite x 3-4 months and would like to discuss medications. documented in this encounter Plan of Treatment Not on file documented as of this encounter Procedures Procedure Name Priority Date/Time Associated Diagnosis Comments VITAMIN D 25-HYDROXY Routine 04/01/2015 11:01 AM CDT Osteoporosis CBC W AUTO DIFFERENTIAL Routine 04/01/2015 11:01 AM CDT Fatigue COMPREHENSIVE METABOLIC PANEL Routine 04/01/2015 11:01 AM CDT Fatigue TSH Routine 04/01/2015 11:01 AM CDT Fatigue T4 FREE Routine 04/01/2015 11:01 AM CDT Fatigue documented in this encounter Results * (ABNORMAL) CBC W AUTO DIFFERENTIAL (04/01/2015 11:01 AM CDT) WBC 7.7 4.4 - 10.7 x10E9/L [facility] [...] 1:54 PM CDT Narrative Resulting Agency Comment [facility] [address] [address] ??[place] [id number] Kit Kyle MD LAB - HEMATOLOGY ORD ERABLES [facility] ACCOUNT BILL * COMPREHENSIVE METABOLIC PANEL (04/01/2015 11:01 AM CDT) Glucose 101 74 - 106 mg/dL [facility] [...] 1:54 PM CDT Narrative Resulting Agency Comment [facility] [address] [facility] ??[facility] [id number] Kit Kyle MD LAB - CHEMISTRY JOHNNY ASCENCIO [facility] ACCOUNT BILL * VITAMIN D 25-HYDROXY (04/01/2015 11:01 AM CDT) Vitamin D, 25 Hydroxy 56.32 30 - 100 ng/mL [facility] ACCOUNT BILL Comment: Vitamin D Status: ?Deficiency ? <20 ? ng/mL ?Insufficiency ?? 20-30 ??ng/mL ?Sufficiency ? 30-100 ng/mL ?Toxicity ? >100 ?ng/mL Blood specimen (specimen) BLOOD SPECIMEN / Unknown 04/01/2015 11:01 AM CDT 04/01/2015 1:54 PM CDT Narrative Resulting Agency Comment [facility] [address] [place] [address] ??[facility] [id number] Kit Kyle MD LAB - CHEMISTRY JOHNNY ASCENCIO Performing Organization Address City/[facility]/ZIP Co de Phone Number [facility] ACCOUNT BILL * T4 FREE (04/01/2015 11:01 AM CDT) T4 Free 1.05 0.65 - 1.34 ng/dL [facility] ACCOUNT BILL Blood specimen (specimen) BLOOD SPECIMEN / Unknown 04/01/2015 11:01 AM CDT 04/01/2015 1:54 PM CDT Narrative Resulting Agency Comment [facility] [address] ??[place] [phone] Kit Kyle MD LAB - CHEMISTRY JOHNNY ASCENCIO Performing Organization Address City/[facility] Co de Phone Number [facility] ACCOUNT BILL * TSH (04/01/2015 11:01 AM CDT) TSH 1.43 0.358 - 3.740 uIU/mL [facility] ACCOUNT BILL Blood specimen (specimen) BLOOD SPECIMEN / Unknown 04/01/2015 11:01 AM CDT 04/01/2015 1:54 PM CDT Narrative Resulting Agency Comment [facility] [address] ??[place] [id number] Kit Kyle MD LAB - CHEMISTRY JOHNNY ASCENCIO Performing Organization Address City/[facility] Co de Phone Number [facility] ACCOUNT BILL documented in this encounter Visit Diagnoses Diagnosis Fatigue- Primary Other malaise and fatigue Osteoporosis documented in this encounter Care Teams Paving Stone Installer Relationship Specialty Start Date End Date Kit Kyle MD [address] [place] [address] PCP - General Internal Medicine 12/19/13 12/15/16 Senthil Michael MD [facility] [place] [phone] Podiatry 12/21/14 documented as of this encounter
--- OUTSIDE RECORDS SUMMARY | 2024-07-15 03:04 | XMS_ITS | Encounter Summary ---
Author Organization [facility] Address [address] [place] [address] Care Team Providers Care Salt Miner Name Role Phone Kit Kyle MD Primary Care Provider [phone] Reason for Visit * Reason Comments Physical Encounter Details Date Type Department Care Team (Late st Contact Info) Description 10/24/2014 8:00 AM CDT Office Visit [facility] - Internal Medicine [address] [place] [address] Kit Kyle MD [address] [place], [place] [address] [address] [place] [address] Routine general medical examination at a health care facility (Primary Dx); Hyperlipidemia; Osteoporosis Social History Tobacco Use Types Packs/Day [...] Sign Reading Time Taken Comments Blood Pressure 120/82 10/24/2014 7:49 AM CDT Pulse 68 10/24/2014 7:49 AM CDT Temperature - - Respiratory Rate - - Oxygen Saturation - - Inhaled Oxygen Concentration - - Weight 91.2 kg (201 lb) 10/24/2014 7:49 AM CDT Height 180.3 cm (5' 10.98) 10/24/2014 7:49 AM C DT Body Mass Index 28.05 10/24/2014 7:49 AM CDT documented in this encounter Functional [...] Progress Notes * Kit Kyle MD - 10/30/2014 6:48 AM CDT Encounter Diagnoses Name Primary? Routine general medical examination at a health care facility Yes ??? Hyperlipidemia ??? Osteoporosis Patient is here for a checkup overall she is doing well. She has osteoporosis and is on Evista. Shehas hyperlipidemia and takes a statin. For general myalgias type pain Current Outpatient Prescriptions Medication ??? DULoxetine (CYMBALTA) 60 MG capsule ??? meloxicam (MOBIC) 7.5 MG tablet ??? Raloxifene HCl (EVISTA PO) ??? aspirin (ASPIRIN) 81 MG tablet ??? gabapentin (NEURONTIN) 300 MG capsule ??? atorvastatin (LIPITOR) 40 MG tablet ??? OMEGA 3 1000 MG CAPS ??? CALCIUM 600+D PLUS MINERALS PO ??? VITAMIN B-12 PO No current facility-administered medications for this visit. I have reviewed the medication list, allergy list, and problem list as documented in Epic. The review of systems is as documented in the HPI OBJECTIVE: BP 120/82 Pulse 68 Wt 91.173 kg (201 lb) BMI 28.05 kg/m2 General appearance: alert, well appearing, and [...] clubbing or cyanosis Encounter Diagnoses Name Primary? Routine general medical examination at a health care facility Yes ??? Hyperlipidemia ??? Osteoporosis Orders Placed This Encounter ??? SED RATE WESTERGREN ??? CBC W AUTO DIFFERENTIAL ??? COMPREHENSIVE METABOLIC PANEL ??? LIPID PROFILE REFLEX LDL DIRECT (PO REF LAB) Is well * Maribel Polk - 10/24/2014 7:49 AM CDT Ernestine Salinas is a 74 y.o. female is here today for his annual physical; not currently fastingfor lab work. Also c/o pain in lower back, ryan knees, and ryan hips. documented in this encounter Plan of Treatment Not on file documented as of this encounter Procedures Procedure Name Priority Date/Time Associated Diagnosis Comments LIPID PROFILE REFLEX LDL DIRECT Routine 10/24/2014 8:36 AM CDT Routine general medical examination at a health care facility ERYTHROCYTE SEDIMENTATION RATE Routine 10/24/2014 8:36 AM CDT Routine general medical examination at a health care facility CBC W AUTO DIFFERENTIAL Routine 10/24/2014 8:36 AM CDT Routine general medical examination at a health care facility COMPREHENSIVE METABOLIC PANEL Routine 10/24/2014 8:36 AM CDT Routine general medical examination at a health care facility documented in this encounter Results * LIPID PROFILE REFLEX LDL DIRECT (PO REF LAB) (10/24/2014 8:36 AM CDT) Cholesterol 159 100 - 199 mg/dL [facility] [...] PM CDT Narrative Resulting Agency Comment [facility] [address] ??[facility] [phone] Kit Kyle MD LAB - CHEMISTRY JOHNNY ASCENCIO [facility] ACCOUNT BILL * COMPREHENSIVE METABOLIC PANEL (10/24/2014 8:36 AM CDT) Glucose 99 65 - 99 mg/dL [facility] ACCOUNT BILL BUN 17 8 - 27 mg/dL [facility] ACCOUNT BILL Creatinine 0.84 0.57 - 1.00 mg/dL [facility] ACCOUNT BILL eGFR by MDRD 70 >59 mL/min/1.7 3 [facility] ACCOUNT BILL eGFR by MDRD 80 >59 mL/min/1.7 3 [facility] ACCOUNT BILL BUN/Creatinine Ratio 20 11 - 26 [facility] ACCOUNT BILL Sodium 143 134 - 144 mmol/L [facility] ACCOUNT BILL Potassium 4.4 3.5 - 5.2 mmol/L [facility] ACCOUNT BILL Chloride 102 97 - 108 mmol/L [facility] ACCOUNT BILL CO2 26 18 - 29 mmol/L [facility] ACCOUNT BILL Calcium 9.1 8.7 - 10.3 mg/dL [facility] ACCOUNT BILL Protein Total 6.0 6.0 - 8.5 g/dL [facility] ACCOUNT BILL Albumin 4.3 3.5 - 4.8 g/dL [facility] ACCOUNT BILL Globulin Total 1.7 1.5 - 4.5 g/dL [facility] ACCOUNT BILL Albumin/Globulin Ratio 2.5 1.1 - 2.5 [facility] ACCOUNT BILL Bilirubin Total 0.9 0.0 - 1.2 mg/dL [facility] ACCOUNT BILL Alkaline Phosphatase 88 39 - 117 IU/L [facility] ACCOUNT BILL AST 17 0 - 40 IU/L [facility] ACCOUNT BILL ALT 19 0 - 32 IU/L [facility] ACCOUNT BILL Blood specimen (specimen) BLOOD SPECIMEN / Unknown 10/24/2014 8:36 AM CDT 10/24/2014 12:53 PM CDT Narrative Resulting Agency Comment [facility] [address] ??[facility] [phone] Kit Kyle MD LAB - CHEMISTRY JOHNNY ASCENCIO [facility] ACCOUNT BILL * CBC W AUTO DIFFERENTIAL (10/24/2014 8:36 AM CDT) WBC 5.1 3.4 - 10.8 x10E3/uL [facility] ACCOUNT BILL RBC 4.86 3.77 - 5.28 x10E6/uL [facility] ACCOUNT BILL Hemoglobin 14.1 11.1 - 15.9 g/dL [facility] ACCOUNT BILL Hematocrit 44.7 34.0 - 46.6 % [facility] ACCOUNT BILL MCV 92 79 - 97 fL [facility] ACCOUNT BILL MCH 29.0 26.6 - 33.0 pg [facility] ACCOUNT BILL MCHC 31.5 31.5 - 35.7 g/dL [facility] ACCOUNT BILL RDW 13.4 12.3 - 15.4 % [facility] ACCOUNT BILL Platelet Count 179 150 - 379 x10E3/uL [facility] ACCOUNT BILL Granulocytes % 63 % [facility] ACCOUNT BILL Lymphocytes % 25 % [facility] ACCOUNT BILL Monocytes % 10 % [facility] ACCOUNT BILL Eosinophils % 2 % [facility] ACCOUNT BILL Basophils % 0 % [facility] ACCOUNT BILL Immature Cells NOT NEEDED [facility] ACCOUNT BILL Comment:Ancillary determined the test is not needed Granulocytes Absolute 3.2 1.4 - 7.0 x10E3/uL [facility] ACCOUNT BILL Lymphocytes Absolute 1.3 0.7 - 3.1 x10E3/uL [facility] ACCOUNT BILL Monocytes Absolute 0.5 0.1 - 0.9 x10E3/uL [facility] ACCOUNT BILL Eosinophils Absolute 0.1 0.0 - 0.4 x10E3/uL [facility] ACCOUNT BILL Basophils Absolute 0.0 0.0 - 0.2 x10E3/uL [facility] ACCOUNT BILL Immature Granulocytes 0 % [facility] ACCOUNT BILL Immature Granulocytes Absolute 0.0 0.0 - 0.1 x10E3/uL [facility] ACCOUNT BILL nRBC NOT NEEDED [facility] ACCOUNT BILL Comment:Ancillary determined the test is not needed Comment Hematology NOT NEEDED [facility] ACCOUNT BILL Comment:Ancillary determined the test is not needed Blood specimen (specimen) BLOOD SPECIMEN / Unknown 10/24/2014 8:36 AM CDT 10/24/2014 12:53 PM CDT Narrative Resulting Agency Comment [facility] [place] [id number] [facility] ??[facility] [phone] Kit Kyle MD LAB - HEMATOLOGY ORD ERABLES [facility] ACCOUNT BILL * SED RATE WESTERGREN (10/24/2014 8:36 AM CDT) Erythrocyte Sedimentation Rate Westergren 2 0 - 40 mm/hr [facility] ACCOUNT BILL Blood specimen (specimen) BLOOD SPECIMEN / Unknown 10/24/2014 8:36 AM CDT 10/24/2014 12:53 PM CDT Narrative Resulting Agency Comment [facility] [address] ??[facility] [phone] Kit Kyle MD LAB - HEMATOLOGY ORD ERABLES [facility] ACCOUNT BILL documented in this encounter Visit Diagnoses Diagnosis Routine general medical examination at a health care facility- Primary Hyperlipidemia Other and unspecified hyperlipidemia Osteoporosis documented in this encounter Care Teams Salt Miner Relationship Specialty Start Date End Date Kit Kyle MD [address] [place] [address] PCP - General Internal Medicine 12/19/13 12/15/16 documented as of this encounter
--- OUTSIDE RECORDS SUMMARY | 2024-07-15 03:04 | XMS_ITS | Encounter Summary ---
Author Organization [facility] Address [address] [facility] [place] [address] Care Team Providers Care Anesthesia Attending Name Role Phone Kit Kyle MD Primary Care Provider [phone] Senthil Michael MD Unavailable [phone] Encounter Details Date Type Department Care [...] on filedocumented in this encounter Care Teams Anesthesia Attending Relationship Specialty Start Date End Date Kit Kyle MD [address] [place] [address] PCP - General Internal Medicine 12/19/13 12/15/16 Senthil Michael MD [address] [place] [phone] Podiatry 12/21/14 documented as of this encounter
--- OUTSIDE RECORDS SUMMARY | 2024-07-15 03:04 | XMS_ITS | Encounter Summary ---
Author Organization [facility] Address [address] [address] Care Team Providers Care Disk Operator Name Role Phone Kit Kyle MD Primary Care Provider [phone] Senthil Michael MD Unavailable [phone] Reason for Visit * Reason Onset Date Comments MEDICATION REFILL 01/29/2015 Encounter Details Date Type Department Care Team (Late st Contact Info) Description 01/29/2015 Refill [facility] - Internal Medicine [address] [place] [address] Kit Kyle MD [address] [place] [address] MEDICATION REFILL Social History Tobacco [...] * Telephone Encounter - Becky Dinh - 01/29/2015 11:54 AM CDT LV: 12/21/14 LF: 05/31/14 documented in this encounter Plan of Treatment Not on file documented as of this encounter Visit Diagnoses Not on filedocumented in this encounter Care Teams Disk Operator Relationship Specialty Start Date End Date Kit Kyle MD [address] [place] [address] PCP - General Internal Medicine 12/19/13 12/15/16 Senthil Michael MD [address] [place] [address] Podiatry 12/21/14 documented as of this encounter
--- OUTSIDE RECORDS SUMMARY | 2024-07-15 03:04 | XMS_ITS | Encounter Summary ---
Author Organization [facility] Address [address] [place] [address] Care Team Providers Care Access Clinician Name Role Phone Kit Kyle MD Primary Care Provider [phone] Senthil Michael MD Unavailable [phone] Reason for Visit * Reason Comments Hypertension Encounter Details Date Type Department Care Team (Late st Contact Info) Description 12/21/2014 1:45 PM CDT Office Visit [facility] - Internal Medicine [address] [place] [address] Kit Kyle MD [address] [place] [address] Neuropathy (Primary Dx); Elevated blood pressure (not hypertension) Social History Tobacco Use Types Packs/Day Years [...] Sign Reading Time Taken Comments Blood Pressure 130/70 12/21/2014 1:38 PM CDT Pulse 74 12/21/2014 1:38 PM CDT Temperature - - Respiratory Rate - - Oxygen Saturation - - Inhaled Oxygen Concentration - - Weight 91.6 kg (202 lb) 12/21/2014 1:38 PM CDT Height 180.3 cm (5' 10.98) 12/21/2014 1:38 PM C DT Body Mass Index 28.19 12/21/2014 1:38 PM CDT documented in this encounter Functional Status [...] Progress Notes * Kit Kyle MD - 12/25/2014 8:04 AM CDT Encounter Diagnoses Name Primary? Neuropathy Yes ??? Elevated blood pressure (not hypertension) Patient is here for a checkup she is worried about being hypertensive most of the blood pressure number she brings in are actually normotensive. She has been tired and a bit more stressed in recent days. She does have some chronic neuropathy which is also bothersome I have reviewed the medication list, allergy list, and problem list as documented in Epic. The review of systems is as documented in the [facility] OBJECTIVE: BP 130/70 mmHg Pulse 74 Wt 91.627 kg (202 lb) BMI 28.19 kg/m2 General appearance: alert, well appearing, and [...] clubbing or cyanosis Encounter Diagnoses Name Primary? Neuropathy Yes ??? Elevated blood pressure (not hypertension) No orders of the defined types were placed in this encounter. Blood pressure is not an issue that needs addressing now. Her blood pressure is normal he is on gabapentin for her neuropathy the dose was recently increased which may be accounting for her more recent fatigue. Will monitor * Becky Dinh - 12/21/2014 1:38 PM CDT Ernestine Salinas is a 74 y.o. female who is here C/O hypertension, sweats, and fatigue x 1 week. Pt says it be may stress related. documented in this encounter Plan of Treatment Not on file documented as of this encounter Visit Diagnoses Diagnosis Neuropathy- Primary Mononeuritis of unspecified site Elevated blood pressure (not hypertension) Elevated blood pressure reading without diagnosis of hypertension documented in this encounter Care Teams Access Clinician Relationship Specialty Start Date End Date Kit Kyle MD [address] [place] [address] PCP - General Internal Medicine 12/19/13 12/15/16 Senthil Michael MD [facility] [place] [address] Podiatry 12/21/14 documented as of this encounter
--- OUTSIDE RECORDS SUMMARY | 2024-07-15 03:04 | XMS_ITS | Encounter Summary ---
Author Organization [facility] Address [address] [place] [address] Care Team Providers Care Nurse Paralegal Name Role Phone Kit Kyle MD Primary Care Provider [phone] Senthil Michael MD Unavailable Reason for Referral * Radiology Services (Routine) - Closed Specialty Diagnoses / Procedures Referred By Contac t Referred To Contact Diagnoses Spinal stenosis, unspecified spinal region Procedures FL GUIDED SPINAL INJECTION Jayden Carballo MD [address] [place] [id number] Referral ID Status Reason Start Date Expiration Date Visits Re quested Visits Authorized [id number] Closed 12/25/2015 06/22/2016 1 1 Reason for Visit * Radiology Services (Routine) - Closed Specialty Diagnoses / Procedures Referred By Contac t Referred To Contact Diagnoses Spinal stenosis, unspecified spinal region Procedures FL GUIDED SPINAL INJECTION Jayden Carballo MD [address] [place] [id number] Referral ID Status Reason Start Date Expiration Date Visits Re quested Visits Authorized [id number] Closed 12/25/2015 06/22/2016 1 1 Encounter Details Date Type Department Care Team (Latest Contact Info) Description 12/25/2015 1:02 PM CDT - 12/25/2015 11:59 PM CDT Hospital Encounter [facility] Health Imaging Services - Radiology [address] [facility] [place] [address] Jayden Carballo MD [address] [facility] [address] [place] [address] Discharge Disposition: Home or Self Care Social [...] (EVISTA PO) Take 60 mg by mouth. sertraline (ZOLOFT) 50 MG tablet Take 1 Tab by mouth once daily 30 Tab 1 12/18/2015 tiZANidine HCl 4 MG Take 4 mg by mouth 2 times daily documented as of this encounter Plan of Treatment Not on file documented as of this encounter Procedures Procedure Name Priority Date/Time Associated Diagnosis Comments FL SPINAL INJECTION OR ASPIRATE Routine 12/25/2015 1:28 PM CDT Spinal stenosis, unspecified spinal region documented in this encounter Results * FL GUIDED SPINAL INJECTION (12/25/2015 1:28 PM CDT) Anatomical Region Laterality Modality Spine Radiographic Mely [...] seconds. Jayden Carballo MD FLUOROSCOPY ORDERABL ES documented in this encounter Visit Diagnoses Diagnosis Spinal stenosis, unspecified spinal region documented in this encounter Care Teams Nurse Paralegal Relationship Specialty Start Date End Date Kit Kyle MD [address] [place] [address] PCP - General Internal Medicine 12/19/13 12/15/16 Senthil Michael MD [address] [place] [phone] Podiatry 12/21/14 documented as of this encounter
--- OUTSIDE RECORDS SUMMARY | 2024-07-15 03:04 | XMS_ITS | Encounter Summary ---
Author Organization [facility] Address [address] [place] [address] Care Team Providers Care Gas Desulfurizer Name Role Phone Kit Kyle MD Primary Care Provider [phone] Reason for Visit * Reason Comments Depression Encounter Details Date Type Department Care Team (Late st Contact Info) Description 03/09/2014 2:00 PM CDT Office Visit [facility] - Internal Medicine [address] [place] [address] Kit Kyle MD [address] [place], [place] [address] [address] [place] [address] Neuropathy (Primary Dx); Knee pain, left; Depression Social History Tobacco Use Types Packs/Day Years [...] Sign Reading Time Taken Comments Blood Pressure 122/88 03/09/2014 1:41 PM CDT Pulse 60 03/09/2014 1:41 PM CDT Temperature - - Respiratory Rate - - Oxygen Saturation - - Inhaled Oxygen Concentration - - Weight 88 kg (194 lb) 03/09/2014 1:41 PM CDT Height 180.3 cm (5' 11) 03/09/2014 1:41 PM CDT Body Mass Index 27.06 03/09/2014 1:41 PM CDT documented in this encounter Functional [...] Progress Notes * Kit Kyle MD - 03/14/2014 7:10 AM CDT Encounter Diagnoses Name Primary? Neuropathy Yes ??? Knee pain, left ??? Depression Patient is here for several issues 1 of which is neuropathy she has had a longstanding and diagnosis of neuropathy of was not diabetic and does not drink alcohol. She also has knee pain it is a grinding discomfort in her pain it has been there for over a month. Also has depression she is overwhelmed with caring for her partner who's been sick status post stroke I have reviewed the medication list, allergy list, and problem list as documented in Epic. The review of systems is as documented in the [facility] OBJECTIVE: BP 122/88 Pulse 60 Wt 87.998 kg (194 lb) BMI 27.07 kg/m2 General appearance: alert, well appearing, and [...] Encounter Diagnoses Name Primary? Neuropathy Yes ??? Knee pain, left ??? Depression Orders Placed This Encounter ??? VITAMIN B12 FOLATE PANEL ??? TSH ??? HEMOGLOBIN A1C ??? DULoxetine (CYMBALTA) 60 MG capsule ??? meloxicam (MOBIC) 7.5 MG tablet As above. * Becky Dinh - 03/09/2014 1:41 PM CDT Ernestine Salinas is a 73 y.o. female who is here C/O depression and x 7 months. Pt's partner had a stroke in July, and she has taken on a lot, feeling overwhelmed. Also Pt says a previous doctordiagnosed her with neuropathy in both feet, and up into her L leg, but says she was never diagnosedwith DM, so would like to discuss that. Lastly, pt's R knee has been grinding x 6 weeks. documented in this encounter Plan of Treatment Not on file documented as of this encounter Procedures Procedure Name Priority Date/Time Associated Diagnosis Comments HEMOGLOBIN A1C Routine 03/09/2014 2:38 PM CDT Neuropathy VITAMIN B12 FOLATE PANEL Routine 03/09/2014 2:38 PM CDT Neuropathy TSH Routine 03/09/2014 2:38 PM CDT Neuropathy documented in this encounter Results * (ABNORMAL) HEMOGLOBIN A1C (03/09/2014 2:38 PM CDT) Hemoglobin A1c 5.8(H) 4.8 - 5.6 % [facility] ACCOUNT BILL Comment: ? . ? Increased risk for diabetes: 5.7 - 6.4 ? Diabetes: >6.4 ? Glycemic control for adults with diabetes: <7.0 Whole blood specimen (specimen) BLOOD SPECIMEN WITH EDTA / Unknown 03/09/2014 2:38 PM CDT 03/09/2014 6:03 PM CDT Narrative Resulting Agency Comment [facility] [address] ??[facility] [phone] Kit Kyle MD LAB - CHEMISTRY JOHNNY ASCENCIO Performing Organization Address [facility] Co de Phone Number [facility] ACCOUNT BILL * TSH (03/09/2014 2:38 PM CDT) TSH 1.060 0.450 - 4.500 uIU/mL [facility] ACCOUNT BILL Comment NOT NEEDED [facility] ACCOUNT BILL Comment:Ancillary determined the test is not needed Blood specimen (specimen) BLOOD SPECIMEN / Unknown 03/09/2014 2:38 PM CDT 03/09/2014 6:03 PM CDT Narrative Resulting Agency Comment [facility] [address] ??[facility] [phone] Kit Kyle MD LAB - CHEMISTRY JOHNNY ASCENCIO Performing Organization Address [facility] Co de Phone Number [facility] ACCOUNT BILL * (ABNORMAL) VITAMIN B12 FOLATE PANEL (03/09/2014 2:38 PM CDT) Vitamin B12 1,250(H) 211 - 946 pg/mL [facility] ACCOUNT BILL Folate >19.9 >3.0 ng/mL [facility] ACCOUNT BILL Comment: A serum folate concentration of less than 3.1 ng/mL is considered to represent clinical deficiency. Blood specimen (specimen) BLOOD SPECIMEN / Unknown 03/09/2014 2:38 PM CDT 03/09/2014 6:03 PM CDT Narrative Resulting Agency Comment [facility] [address] ??[facility] [phone] Kit Kyle MD LAB - CHEMISTRY JOHNYN ASCENCIO [facility] ACCOUNT BILL documented in this encounter Visit Diagnoses Diagnosis Neuropathy- Primary Mononeuritis of unspecified site Knee pain, left Pain in joint, lower leg Depression Depressive disorder, not elsewhere classified documented in this encounter Care Teams Gas Desulfurizer Relationship Specialty Start Date End Date Kit Kyle MD [address] [place] [address] PCP - General Internal Medicine 12/19/13 12/15/16 documented as of this encounter
--- OUTSIDE RECORDS SUMMARY | 2024-07-15 03:04 | XMS_ITS | Encounter Summary ---
Author Organization [facility] Health Address [address] [facility] [place] [address] Care Team Providers Care Pan Cleaner Name Role Phone Kit Kyle MD Primary Care Provider [phone] Senthil Michael MD Unavailable [phone] Reason for Visit * Reason Comments Follow-up Encounter Details Date Type Department Care Team (Late st Contact Info) Description 01/27/2016 11:00 AM CDT Office Visit [facility] Health Neurosciences [address], [address] [place] [address] Shakeel Santana MD [address] [place] [phone] Pain, joint, hip, right (Primary Dx) Social History Tobacco Use Types [...] Pressure 116/80 01/27/2016 10:04 AM CDT Pulse - - Temperature - - Respiratory Rate - - Oxygen Saturation - - Inhaled Oxygen Concentration - - Weight 83 kg (183 lb) 01/27/2016 10:04 AM CDT Height 177.8 cm (5' 10) 01/27/2016 10:04 AM CDT Body Mass Index 26.26 01/27/2016 10:04 AM CDT documented in this encounter Functional [...] No 01/05/2014 documented as of this encounter Patient Instructions * Patient Instructions* Randi Seo MA - 01/27/2016 10:44 AM CDT Hip xray to be done and ref to dr da silva. Patient lives in [place] and may contact hier PCP for a ref closer to home. Follow up PRN documented in this encounter Progress Notes * Shakeel Santana - 01/27/2016 7:03 PM CDT Images from the original note were not included. [facility] [address], [address] [place] [address] Neurosurgery Follow-Up Note Ernestine Salinas 75 y.o. female 01/27/2016 No referring provider defined for this encounter. Subjective/Interval History Ernestine returns with ongoing back pain that is variable she is having a fair amount of hip pain. At its worst her pain is 7-9/10, but it is inconstant. She wanted to discuss surgical options. Objective/Physical Examination Vitals: 01/27/16 1004 BP: 116/80 Weight: 83.008 kg (183 lb) General: Ernestine Salinas is a well nourished, well developed female in no acute distress. She is pleasant and cooperative with both interview and examination. She appears her stated age. Height: 177.8 cm (5' 10) Weight: 83.008 kg (183 lb) Skin: Skin and integumentary systems are grossly intact. HEENT: Normocephalic, atraumatic. No thyromegaly is noted. Extra-ocular movements are intact. Face is symmetric. Neck is soft and supple. Trachea is midline. Psych: Mental status is appropriate Ext: No clubbing, cyanosis or edema Neurologic Exam: Mental Status Alert and oriented x3. Speech is fluent without obvious aphasia. Cranial Nerves Face is symmetric. EOMI. PERRL. Oropharynx moist. Motor Strength Full strength in all for extremities Sensory Intact to Light touch througout Pain with hip internal/external rotation Interpretation of Radiographic/Laboratory Studies: Multilevel spondylosis with stenosis Impression/Plan Ernestnie Salinas is a 75 y.o. female who presents with a complex pain picture. Certainly her multilevel spondylosis and stenosis can be contributing to her pain, but I suspect her current worst pain is hip in origin. I would recommend she be evaluated for hip pathology. Her pain seems somewhat inconsistent for consideration of a L2 or T10 to pelvis fusion. She has recently moved to [place] andis moving her medical care there. I have marked patients medications, allergies, and problem list as reviewed. This does not imply that I necessarily agree with this information, I have simply reviewed it. Shakeel Santana MD documented in this encounter Plan of Treatment Not on file documented as of this encounter Visit Diagnoses Diagnosis Pain, joint, hip, right- Primary Pain in joint, pelvic region and thigh documented in this encounter Care Teams Pan Cleaner Relationship Specialty Start Date End Date Kit Kyle MD [address] [place] [address] PCP - General Internal Medicine 12/19/13 12/15/16 Senthil Michael MD [address] [place] [phone] Podiatry 12/21/14 documented as of this encounter
--- OUTSIDE RECORDS SUMMARY | 2024-07-15 03:04 | XMS_ITS | Encounter Summary ---
Author Organization [facility] Address [address] [place] [address] Care Team Providers Care Material Control Associate Name Role Phone Kit Kyle MD Primary Care Provider Senthil Michael MD Unavailable Reason for Referral * Radiology Services (Routine) - Closed Specialty Diagnoses / Procedures Referred By Contac t Referred To Contact MRI Diagnoses Right lumbar radiculopathy Procedures MRI LUMBAR SPINE WO CONTRAST Kit Kyle MD [address] [place] [address] [place] [phone] Referral ID Status Reason Start Date Expiration Date Visits Re quested Visits Authorized [id number] Closed 10/18/2015 12/02/2015 1 1 Reason for Visit * Reason Comments Pain Back Encounter Details Date Type Department Care Team (Late st Contact Info) Description 10/18/2015 10:45 AM CDT Office Visit [facility] - Internal Medicine [address] [place] [address] Kit Kyle MD [address] [place] [address] [place] [phone] Right lumbar radiculopathy (Primary Dx) Social History Tobacco Use Types [...] Sign Reading Time Taken Comments Blood Pressure 126/82 10/18/2015 10:28 AM CDT Pulse 83 10/18/2015 10:28 AM CDT Temperature - - Respiratory Rate - - Oxygen Saturation 96% 10/18/2015 10:28 AM CDT Inhaled Oxygen Concentration - - Weight 84.4 kg (186 lb) 10/18/2015 10:28 AM CDT Height - - Body Mass Index 25.94 04/01/2015 10:36 AM CDT documented in this [...] Progress Notes * Kit Kyle MD - 10/24/2015 7:09 PM CDT Encounter Diagnosis Name Primary? Right lumbar radiculopathy Yes patient is here with low back pain for the past 5 months. She was seen in [place] for this issue x-ray showed some arthritis. The pain now however he has been radiating down her leg especially on the right for quite some time. Months at least. It is not responded well to any the medications we have given her. She has an increased workload at home as she is caring for an elderly partner. All I have reviewed the medication list, allergy list, and problem list as documented in Epic. The review of systems is as documented in the HPI OBJECTIVE: BP 126/82 mmHg Pulse 83 Wt 84.369 kg (186 lb) General appearance: alert, well appearing, and in [...] no pedal edema, no clubbing or cyanosis reflexes symmetric strength good Encounter Diagnosis Name Primary? Right lumbar radiculopathy Yes Orders Placed This Encounter ??? MRI LUMBAR SPINE WO CONTRAST will images above * Sowmya Melton - 10/18/2015 10:28 AM CDT Ernestine Salinas is a 75 y.o. female is here today for Anatoliy c/o lower back pain radiating down herright hip to her knee for about 5 months. BP 126/82 mmHg Pulse 83 Wt 84.369 kg (186 lb) Body mass index is 25.95 kg/(m^2). CrCl cannot be calculated (Unknown ideal weight.). documented in this encounter Plan of Treatment Not on file documented as of this encounter Results * MRI LUMBAR SPINE [...] this encounter Visit Diagnoses Diagnosis Right lumbar radiculopathy- Primary Thoracic or lumbosacral neuritis or radiculitis, unspecified Right lumbar radiculopathy Thoracic or lumbosacral neuritis or radiculitis, unspecified documented in this encounter Care Teams Material Control Associate Relationship Specialty Start Date End Date Kit Kyle MD [address] [place] [address] PCP - General Internal Medicine 12/19/13 12/15/16 Senthil Michael MD [address] [place] [phone] Podiatry 12/21/14 documented as of this encounter
--- OUTSIDE RECORDS SUMMARY | 2024-07-15 03:04 | XMS_ITS | Encounter Summary ---
Author Organization [facility] Health Address [address] [place] [address] Care Team Providers Care Electronics Assembler Name Role Phone Kit Kyle MD Primary Care Provider Senthil Michael MD Unavailable [phone] Reason for Visit * Reason Onset Date Comments Question 12/13/2015 Patient calling to report that the injection from November did not help as she had hoped it would. Wonders what the next step would be., Encounter Details Date Type Department Care Team (Late st Contact Info) Description 12/13/2015 Telephone [facility] [address] [place] [address], [address] [place] [address] Jayden Carballo MD [address] [place] [address] [address] [place] [address] Question (Patient calling to report that the injection from November did not help as she had hoped it would. Wonders what the next step would be.,) Social History Tobacco Use Types Packs/Day Years [...] encounter Miscellaneous Notes * Telephone Encounter - Juanis Wren, RN - 12/13/2015 2:38 PM CDT I returned pt's call and per Dr. Carballo offered her an LESI . Pt. Expressed verbal understandingand was transferred to Namrata, the medical unit secretary, to schedule the injection. Pt. Is not on blood thinners. documented in this encounter Plan of Treatment Not on file documented as of this encounter Visit Diagnoses Not on filedocumented in this encounter Care Teams Electronics Assembler Relationship Specialty Start Date End Date Kit Kyle MD [address] [place] [address] PCP - General Internal Medicine 12/19/13 12/15/16 Senthil Michael MD [address] [place] [phone] Podiatry 12/21/14 documented as of this encounter
--- OUTSIDE RECORDS SUMMARY | 2024-07-15 03:04 | XMS_ITS | Encounter Summary ---
Author Organization [facility] Address [address] [place] [address] Care Team Providers Care Lead Fabricator Name Role Phone Kit Kyle MD Primary Care Provider [phone] Reason for Visit * Reason Comments Establish Care lt foot fx Encounter Details Date Type Department Care Team (Late st Contact Info) Description 01/23/2014 10:40 AM CDT Office Visit [facility] Orthopedics - Radiology [address] [place], [place] [id number] Rito An, [facility] [address] [place] [address] Closed fracture of metatarsal bone(s) (Primary Dx) Social History Tobacco Use Types [...] this encounter Patient Instructions * Patient Instructions* Stephen Gregory - 01/23/2014 10:49 AM CDT If there is any change or any worsening symptoms, of course, we would like for them to let us know. documented in this encounter Progress Notes * Stephen Gregory - 01/23/2014 10:49 AM CDT Pt here for lt foot fracture Pt tripped over a ramp on 01/22/14 Pt has bruising and swelling Pt is walking on lt foot Pt went to see dr victor hugo hoover in [facility] documented in this encounter H&P Notes * Rito An, - 01/24/2014 3:19 AM CDT DATE OF SERVICE: 01/23/2014 LOCATION: [place] HISTORY: Ernestine is a 73-year-old female who presents today for evaluation of left foot injury. She states that she was walking and tripped and sustained a left foot injury. She subsequently had x-rays which showed her to have a mildly displaced fifth metatarsal neck fracture. She has been weightbearing as tolerated. Her past medical, surgical, social, family history; allergies; medications; review of systems are noted per intake form. PHYSICAL EXAMINATION: She is otherwise healthy-appearing 73-year-old female. She is alert and oriented x3, in no acute distress. Examination of the left foot shows her skin is intact. No abrasions or lacerations noted. She has mild swelling over the distal portion of the fifth metatarsal. She is tender over the fifth metatarsal. She can flex and extend the MCP joint. X-RAYS: Three views of the left foot show her to have a minimally displaced fracture to the neck of the fifth metatarsal in acceptable position. PLAN: I discussed with Ernestine her treatment plan. I told her that she continue to be weightbearing as tolerated. I told her that the best that she wear whatever shoe makes her feel most comfortable. I have offered her a postop shoe, but she states that she will not wear that. I will see her back in about a month. We will repeat her x-rays. Rito An DO Electronically Signed 01/24/2014 08:24:40 ATG/MedQ #: [id number] cc: Kit Kyle M.D. [address] [place] [address] [address] [place], [place] documented in this encounter Miscellaneous Notes * Addendum Note - Flavia Luciano - 01/24/2014 8:35 AM CDTAddended by: FLAVIA LUCIANO on: 01/24/2014 08:35 AM Modules accepted: Orders documented in this encounter Plan of Treatment Not on file documented as of this encounter Visit Diagnoses Diagnosis Closed fracture of metatarsal bone(s)- Primary documented in this encounter Care Teams Lead Fabricator Relationship Specialty Start Date End Date Kit Kyle MD [address] [facility] [address] [place] [phone] PCP - General Internal Medicine 12/19/13 12/15/16 documented as of this encounter
--- OUTSIDE RECORDS SUMMARY | 2024-07-15 03:04 | XMS_ITS | Encounter Summary ---
Author Organization [facility] Health Address [address] [place] [address] Care Team Providers Care Garment Steamer Name Role Phone Kit Kyle MD Primary Care Provider Senthil Michael MD Unavailable [phone] Reason for Visit * Procedure (Routine) - Closed Specialty Diagnoses / Procedures Referred By Contac t Referred To Contact Pain Management Procedures TX INJ LUMBAR/SACRAL,W/WO CNTRST Jayden Carballo MD [facility] [address] [place] [id number] [facility] [address] [place] [address] Referral ID Status Reason Start Date Expiration Date Visits Re quested Visits Authorized [id number] Closed 12/18/2015 06/15/2016 3 3 Encounter Details Date Type Department Care Team (Latest Contact Info) Description 12/25/2015 12:59 PM CDT - 12/25/2015 1:01 PM CDT Hospital Encounter [facility] Health Pain Care [address] [place] [address] [phone] Jayden Carballo MD [facility] [address] [place] [phone] Discharge Disposition: Home or Self Care Social [...] this encounter Discharge Instructions * Patient Instructions* Dede Mazariegos RN - 12/25/2015 12:58 PM CDT PROCEDURE DISCHARGE INSTRUCTIONS The procedure that was done for you today is called: Fluoroscopically Guided MidlineTranslaminar Lumbar Epidural Steroid Injection ACTIVITY: -If you've had sedation today, do not drink alcohol, drive a car, operate machinery or power tools for the next 24 hours. Resume your normal diet as tolerated. A responsible adult should be with you for the 24 hours after sedation. Do not sit in a bathtub, hot [...] You can contact us during those hours [phone]. Please contact your primary care physician for any concerns outside of normal business hours. In the case of an emergency, please call 911 or go to the nearest emergency department. For further information about our clinic, please visit our website at: [email or web address] documented in this encounter Medications at Time [...] times daily documented as of this encounter Progress Notes * Juanis Wren RN - 12/30/2015 4:00 PM CDT 12/30/15 1600 Phone Call Status Call status Brief Message * Misti Bustillo RN - 12/26/2015 11:04 AM CDT 12/26/15 1104 Phone Call Status Call status Brief Message documented in this encounter H&P Notes * Jayden Carballo MD - 12/25/2015 1:03 PM CDT HPI: Ernestine Salinas is a 75 y.o. White/ female referred by No ref. provider found (PCP is Kit Kyle MD) for evaluation and treatment of right sided low back pain with radiation to the anterior right leg to the right knee.?? This started in May without an inciting event.? The symptoms have been progressive. ?? The pain is rated 8 /10, and [...] stenosis. No Known Allergies ? Past Medical History? Diagnosis? Date? Other and unspecified hyperlipidemia? Hyperlipidemia? Arthritis? Hepatitis? when she was 14 yrs old? Osteoporosis? Past Surgical History? Procedure? Laterality? Date? Hernia repair, umbilical? Cataract removal? bilateral? Knee arthroscopy? 02-2009? left? Knee replacement? 11/13/2010? LEFT UNI ? Cardiac cath? 01/05/2014? Dr. Guzman? Family History? Problem? Relation? Age of Onset? Breast Cancer after age 50 or unknown? Sister? Cancer Breast? Sister? late 30's? Cancer? Father? lung? Cancer? Sister? breast cancer? Current Outpatient Prescriptions? Medication? Sig? Dispense? Refill? methylPREDNISolone (MEDROL DOSEPAK) 4 MG tablet? Take by mouth as directed? 21 Tab? 0? atorvastatin (LIPITOR) 40 MG tablet? Take 40 mg by mouth once daily? tiZANidine HCl 4 MG? Take 4 mg by mouth 2 times daily? ibuprofen (MOTRIN) 800 MG tablet? Take 1 Tab by mouth every 6 hours as needed for Pain? 50 Tab? 0? Raloxifene HCl (EVISTA PO)? Take 60 mg by mouth.? aspirin (ASPIRIN) 81 MG tablet? Take 81 mg by mouth once daily.? gabapentin (NEURONTIN) 300 MG capsule? Take 600 mg by mouth at bedtime.? traMADol (ULTRAM) 50 MG tablet? 1 Tab 3 times daily? DULoxetine (CYMBALTA) 60 MG capsule? Take 1 Cap by mouth once daily (Patient not taking:Reported on 11/21/2015)? 30 Cap? 5? meloxicam (MOBIC) 7.5 MG tablet? Take 1 Tab by mouth once daily (Patient not taking: Reported on 11/21/2015)? 90 Tab? 3? No current facility-administered medications for this visit.? Blood Thinning Medications (such as Plavix, Coumadin, Warfarin, Aggrenox, Heparin, or Aspirin): No ? Social History ?? History? Social History? Marital Status:? Spouse Name:? N/A? Number of Children:? N/A? Years of Education:? N/A? 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 Social History Main Topics? Smoking status:? Former Smoker -- 0.50 packs/day for 20 years? Quit date:? 07/12/1992? Smokeless tobacco:? Never Used? Comment: quit @ 20 yrs ago? Alcohol Use:? No? Comment: rare? Drug Use:? No? Sexual Activity:? Not on file? Other Topics? Concern? Not on file? Social History Narrative? [...] stools. NEURO: Denies headache, dizziness, or seizures. ?? MS: Indicates moderate joint swelling, backpain and stiffness. HEME: Denies easy bleeding, or bruising. ENDO:Denies cold/heat intolerance. PSYCH: Denies depression, anxiety, sleep distubances,or suicidal tendencies. ? Objective:? Vitals: BP 133/79 mmHg Pulse 82 Resp [...] no masses, thyroid not enlarged, no adenopathy ? Cardiovascular? regular rhythm, regular rate? Edema: ?none? Respiratory:? Normal chest wall excusion, unlabored breathing? Musculoskelatal ? Gait:? Normal? Focused Exam:? CERVICAL EXAM: ROM:Normal for flexion, Normal for [...] loading Facet pain:Right facet pain to palpation. ?? Paraspinous:Right paraspinous tenderness to palpation. ?? Spasm:Location: moderate middle right spasms with associated tenderness to palpation.? Straight-leg raise:right with low back pain?? and with lower extremity pain ?? Kyphosis:No Scoliosis:No SACROILIAC JOINT EXAM: Sacroiliac Joint:Thigh thrust: right Fabers: right Sacral thrust: Yes NEUROLOGIC EXAM: ?? Strength LE:?? abductor 5/5; quadraceps 5/5; hamstrings 5/5; adductors 5/5; iliopsoas 5/5, anteriortibial 5/5; gastrosolues 5/5; EHL 5/5; peroneal posterior tibial 5/5 Sensation: decreased sensation to soft touch and pin prick ?? Reflexes: 2+ bilaterally? Skin:? No rashes? Psychiatric:? Normal affect? Labs: No results for input(s): KJMEEDDVB4WB, YPCIJUEP9GZ, EJC0AHKF, UBCSYTYPFU1Q, MMOPKOHLIN2W, VMYXGAHCPK2B, JYMEHZCYW1LY, FQATICWQN2UH, NYWXIY2YH, VIKIDHQIZH5I in the last 41314 hours. Invalid input(s): REPYOMHVN1PV ?? Recent Labs? Component Name? 04/01/15 ??1101?10/24/14 ??0836?01/03/14 ??1512? SODIUM?143?143?142? POTASSIUM?4.0?4.4?3.9? CHLORIDE?107?102?104? CO2?28?26?26? BUN?15?17?12? CREATININE?0.73?0.84?0.74? GLUCOSE?101?99?95? CALCIUM?9.0?9.1?8.7? No results for input(s): INR in the last 15746 hours. No results for input(s): PT in the last 32273lmoyl. No results for input(s): PTT in the last 01103 hours. Labs Reviewed: Yes Images Reviewed: Yes Comorbid Conditions: Hypercholesterolemia ? Assessment:? Based on the patient's complaints, physical examination, and imaging data, there appear to be the following diagnoses: ? ICD-10-CM? 1.? Spinal stenosis, unspecified spinal region? M48.00? 2.? Neuropathy? G62.9? 3.? Lumbosacral radiculopathy? M54.17? 4.? Myalgia? M79.1? Plan:? 1.?? The pain is entirely consistent with right sided L2 and L3 radiculopathy. Will proceed with LESI. documented in this encounter Procedure Notes * Jayden Carballo MD - 12/25/2015 1:26 PM CDTProcedure(s): TX INJ LUMBAR/SACRAL,W/WO CNTRST Pre-Procedure Diagnose(s): Lumbosacral radiculopathy Post-Procedure Diagnose(s): Lumbosacral radiculopathy Fluoroscopically Guided Midline L4-5 Translaminar Epidural Steroid Injection Indication: This is a(n) 75 y.o. year old with intractable lumbar radiculopathy who presents today for palliation of pain. The patient was identified in the holding area and the operative permit was explained and signed. Guicho discussed with the patient the risks, benefits, side effects and complications of a fluoroscopically guided translaminar lumbar epidural steroid injection. I have answered the patient's questions regarding the procedure and have given the patient the opportunity to refuse the procedure. I alsohave discussed alternative methods of treatment. The patient stated understanding of the procedure and wished to proceed with a fluoroscopically guided translaminar lumbar epidural steroid injection. The patient was taken to the fluoroscopic suite and placed in a prone position. Noninvasive blood pressure, pulse oximetry, and an EKG tracing were used to monitor the patient continuously throughoutthe procedure. A nurse was in attendance for the duration of the procedure to carefully monitor thepatient. Please refer to the nursing record for vital sign documentation and for any doses of sedatives and medications. I was present and gave the order for any medications given to the patient. A sterile Betadine preparation and then a sterile drape were applied to the lumbosacral region of the back. Using fluoroscopic guidance, a 27 gauge needle was used to place 3 cc of 1% Lidocaine in the skin and subcutaneous tissues overlying the L4-5 interspace. A 3.5 inch, 18 gauge Tuohy needle wasadvanced into the epidural space at the L4-5 interspace under fluoroscopic guidance using a [id number]-[id number] technique with preservative free normal saline. There was no cerebrospinal fluid or blood aspirated from the needle and no paresthesia was obtained. Next, 3 cc of Omnipaque (180 mg/cc) wasinjected and epidural spread was confirmed with AP and lateral fluoroscopic images. There were no signs or symptoms of intrathecal or intravascular injection. A combination of 18 mg of celestone and 5 ml of preservative free saline was injected. The needle was removed intact. The patient tolerated the procedure well and there were no complications. The patient was taken to the recovery area. The patient remained in stable condition with no apparent complications. Postprocedure instructions were given to the patient and a follow up appointment was confirmed. The patient was also discharged with information on how to reach the clinic or senior consultant physician at anytime for questions or complaints. Estimated blood loss: Minimal Jayden Carballo MD 12/25/2015 1:27 PM documented in this encounter Plan of Treatment Not on file documented as of this encounter Visit Diagnoses Not on filedocumented in this encounter Administered Medications Inactive Administered Medications - up to 3 most recent administrations Medication Order MAR Action Action Date Dose Rate Site 0.9% NaCl injection 1 mL 1 mL, Infiltration, INTRA-PROCEDURE MULTIPLE, Starting on Wed12/25/15 at 0913, Until Franny 12/26/15 at 0128 $ Given 12/25/2015 1:21 PM CDT 5 mL betamethasone acet & sod phos (CELESTONE) injection 6-18 mg 6-18 mg, Epidural, INTRA-PROCEDURE MULTIPLE, Starting on Wed12/25/15 at 0913, Until Franny 12/26/15 at 0128, Administer per physician direction. Dose to be determined by physician. $ Given 12/25/2015 1:21 PM CDT 18 mg iohexol (OMNIPAQUE 180) contrast Intraspinal, INTRA-PROCEDURE ONCE, 1 dose, On Wed12/25/15 at 0913, Intra-epidural Administer per physician direction. $ Given - Contrast 12/25/2015 1:20 PM CDT 2 mL lidocaine (XYLOCAINE MPF) 1 % injection Epidural, INTRA-PROCEDURE MULTIPLE, Starting on Wed12/25/15 at 0913, Until Franny 12/26/15 at 0128, Administer per physician direction. $ Given 12/25/2015 1:19 PM CDT 3 mL sodium bicarbonate 8.4 % injection 0.5 mEq 0.5 mEq, Infiltration, ONCE, 1 dose, On Wed12/25/15 at 0930 $ Given 12/25/2015 1:18 PM CDT 0.5 mEq documented in this encounter Care Teams Garment Steamer Relationship Specialty Start Date End Date Kit Kyle MD [address] [facility] [address] [place] [address] PCP - General Internal Medicine 12/19/13 12/15/16 Senthil Michael MD [address] [facility] [place] [id number] Podiatry 12/21/14 documented as of this encounter
--- OUTSIDE RECORDS SUMMARY | 2024-07-15 03:04 | XMS_ITS | Encounter Summary ---
Author Organization [facility] Address [address] [place] [address] Care Team Providers Care Precision Printing Worker Name Role Phone Kit Kyle MD Primary Care Provider [phone] Reason for Visit * Reason Onset Date Comments Patient Requested Call 06/11/2014 Encounter Details Date Type Department Care Team (Late st Contact Info) Description 06/11/2014 Telephone [facility] Medical [facility] - Internal Medicine [address] [place] [address] Kit Kyle MD [address] [facility] [address] [place] [address] Patient Requested Call Social History Tobacco Use Types Packs/Day Years [...] encounter Miscellaneous Notes * Telephone Encounter - Danielle Bee APRN-CNP - 06/11/2014 4:13 PM PHP WORDPRESS DEVELOPER Spoke with pt. WORDPRESS DEVELOPER * Telephone Encounter - Becky Dinh - 06/11/2014 3:34 PM CST Pt says she wants to talk to an OTOLOGIST regarding a reference? WORDPRESS DEVELOPER documented in this encounter Plan of Treatment Not on file documented as of this encounter Visit Diagnoses Not on filedocumented in this encounter Care Teams Precision Printing Worker Relationship Specialty Start Date End Date Kit Kyle MD [address] [facility] [address] [place] [address] PCP - General Internal Medicine 12/19/13 12/15/16 documented as of this encounter
--- OUTSIDE RECORDS SUMMARY | 2024-07-15 03:04 | XMS_ITS | Encounter Summary ---
Author Organization [facility] Address [address] [place] [address] Care Team Providers Care Body Straightener Name Role Phone Kit Kyle MD Primary Care Provider Senthil Michael MD Unavailable [phone] Reason for Visit * Reason Onset Date Comments Results 11/28/2015 Patient calling to report that the injection yesterday did not help at all. Encounter Details Date Type Department Care Team (Late st Contact Info) Description 11/28/2015 Telephone [facility] Pain Care [address] [place] [address], [address] [place] [address] Jayden Carballo MD [address] [place] [address] [address] [place] [address] Results (Patient calling to report that the injection yesterday did not help at all.) Social History Tobacco Use Types Packs/Day Years [...] encounter Miscellaneous Notes * Telephone Encounter - Britt Figueroa RN - 11/28/2015 3:29 PM CDT Returned patient's call and explained that injection can take 48-72 hours to peak. She states she has not felt any relief as of yet. Explained that we will give her a call again on Wednesday. If no relief by then, we could schedule LESI, per Dr. Carballo's note. documented in this encounter Plan of Treatment Not on file documented as of this encounter Visit Diagnoses Not on filedocumented in this encounter Care Teams Body Straightener Relationship Specialty Start Date End Date Kit Kyle MD [address] [facility] [address] [place] [address] PCP - General Internal Medicine 12/19/13 12/15/16 Senthil Michael MD [address] [place] [phone] Podiatry 12/21/14 documented as of this encounter
--- OUTSIDE RECORDS SUMMARY | 2024-07-15 03:04 | XMS_ITS | Encounter Summary ---
Author Organization [facility] Health Address [address] [place] [address] Care Team Providers Care Finishing Operator Name Role Phone Kit Klye MD Primary Care Provider Senthil Michael MD Unavailable Reason for Visit * Reason Comments Follow-up Encounter Details Date Type Department Care Team (Late st Contact Info) Description 12/03/2015 1:15 PM CDT Office Visit [facility] Health Neurosciences [address], [address] [place] [address] Shakeel Santana MD [address] [place] [address] Scoliosis of lumbar spine, unspecified scoliosis type (Primary Dx); Right low back pain, unspecified chronicity, with sciatica presence unspecified Social History Tobacco Use Types Packs/Day Years [...] Sign Reading Time Taken Comments Blood Pressure 120/88 12/03/2015 1:03 PM CDT Pulse - - Temperature - - Respiratory Rate - - Oxygen Saturation - - Inhaled Oxygen Concentration - - Weight 83.9 kg (185 lb) 12/03/2015 1:03 PM CDT Height 177.8 cm (5' 10) 12/03/2015 1:03 PM CDT Body Mass Index 26.54 12/03/2015 1:03 PM CDT documented in this encounter Functional [...] * Patient Instructions* Randi Seo MA - 12/03/2015 2:18 PM CDT You do not need to return routinely, but should call for any questions, problems or worsening symptoms. documented in this encounter Progress Notes * Shakeel Santana - 12/03/2015 3:35 PM CDT I am seeing Ernestine bar. She continues to have back pain. She has done some PT and STONE and has beenhelped a bit. She has also had her bending scoliosis xrays and DEXA scan. She does not have osteoporosis. We discussed treatment options for her right sided back and leg pain. She may live with the pain, further injections, or surgery. I would advise one of 2 surgeries either T10 to Pelvis or an L2-5 multilevel TLIF. Both surgeries are more than she would consider at this time. She may RTC PRN todiscuss surgery. I spent 15 minutes counseling the patient. More than 50% of my direct face to face time was spent counseling the patient in regards to treatment options. documented in this encounter Plan of Treatment Not on file documented as of this encounter Visit Diagnoses Diagnosis Scoliosis of lumbar spine, unspecified scoliosis type- Primary Right low back pain, unspecified chronicity, with sciatica presence unspecified documented in this encounter Care Teams Finishing Operator Relationship Specialty Start Date End Date Kit Kyle MD [address] [place] [address] PCP - General Internal Medicine 12/19/13 12/15/16 Senthil Michael MD [address] [place] [address] Podiatry 12/21/14 documented as of this encounter
--- OUTSIDE RECORDS SUMMARY | 2024-07-15 03:04 | XMS_ITS | Encounter Summary ---
Author Organization [facility] Address [address] [place] [address] Care Team Providers Care Title Attorney Name Role Phone Kit Kyle MD Primary Care Provider Senthil Michael MD Unavailable Reason for Referral * Radiology Services (Routine) - Closed Specialty Diagnoses / Procedures Referred By Contac t Referred To Contact Bone Densitometry Diagnoses Spinal stenosis, unspecified spinal region Scoliosis of thoracolumbar spine, unspecified scoliosis type Procedures DEXA BONE DENSITY 2 SITES Shakeel Santana MD [address] [place] [phone] Referral ID Status Reason Start Date Expiration Date Visits Re quested Visits Authorized [id number] Closed 11/05/2015 05/03/2016 1 1 * PT/OT/ST (Routine) - Closed Specialty Diagnoses / Procedures Referred By Contac t Referred To Contact Diagnoses Spinal stenosis, unspecified spinal region Scoliosis of thoracolumbar spine, unspecified scoliosis type Procedures PT EVAL AND TREAT Shakeel Santana MD [address] [place] [phone] Referral ID Status Reason Start Date Expiration Date Visits Re quested Visits Authorized [id number] Closed 11/05/2015 05/03/2016 1 1 Reason for Visit * Reason Comments Pain Back Pain Leg right * Evaluate & Treat - Closed Specialty Diagnoses / Procedures Referred By [place] t Referred To Contact Neurological Surgery Diagnoses Spinal stenosis, unspecified spinal region Kit Kyle MD [address] [place] [address] [address] [facility] [address] [address], [address] [place] [address] Referral ID Status Reason Start Date Expiration Date V isits Requested Visits Authorized [id number] Closed Specialty Services Required 10/24/2015 04/21/2016 1 1 Encounter Details Date Type Department Care Team (Latest Contact Info) Description 11/05/2015 11:30 AM CDT Office Visit [facility] [address], [address] [place], [place] [id number] Shakeel Santana MD [address] [place] [address] Scoliosis of thoracolumbar spine, unspecified scoliosis type (Primary Dx); Spinal stenosis, unspecified spinal region Social History Tobacco Use Types Packs/Day Years [...] Sign Reading Time Taken Comments Blood Pressure 140/96 11/05/2015 11:49 AM CDT Pulse - - Temperature - - Respiratory Rate - - Oxygen Saturation - - Inhaled Oxygen Concentration - - Weight 84.8 kg (187 lb) 11/05/2015 11:49 AM CDT Height 180.3 cm (5' 11) 11/05/2015 11:49 AM CDT Body Mass Index 26.08 11/05/2015 11:49 AM CDT documented in this encounter Functional [...] * Patient Instructions* Randi Seo MA - 11/05/2015 1:01 PM CDT Ref to PT Ref to dr esparza Scoliosis xrays and a dexa scan to be done Follow up in 4 weeks documented in this encounter Progress Notes * Shakeel aSntana - 11/05/2015 9:57 PM CDT Images from the original note were not included. [facility] [address] , [address] [facility] [address] History and Physical Ernestine Salinas 75 y.o. female 11/05/2015 Kit Kyle MD [facility] [address] [place] [address] Chief Complaint Back and right leg pain History of Present Illness (location, quality, severity, duration, timing, context, modifying factors, assoc. Signs/symptoms) This is a pleasant 75 year old woman who presents with a sudden onset of pain beginning in Mayof last year. It is constant pain in the back and down the right leg with tingling. The pain is between 3-10/10. She has tried ultram and zinflex without lasting relief. Her pain is worse with bending, lifting, standing, straining, and walking. She has had an MRI. Past Medical History Past Medical History Diagnosis Date ??? Other and unspecified hyperlipidemia Hyperlipidemia ??? Arthritis ??? Hepatitis when she was 14 yrs old ??? Osteoporosis Past Surgical History Procedure Laterality Date ??? Hernia repair, umbilical ??? Cataract removal bilateral ??? Knee arthroscopy left ??? Knee replacement 11/13/2010 LEFT UNI ??? Cardiac cath 01/05/2014 Dr. Guzman No Known Allergies History Social History ??? Marital Status: Spouse Name: N/A Number of Children: N/A ??? 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 Smoking status: Former Smoker -- 0.50 packs/day for 20 years Quit date: 07/12/1992 ??? Smokeless tobacco: Never Used Comment: quit @ 20 yrs ago ??? Alcohol Use: No Comment: rare ??? Drug Use: No ??? Sexual Activity: Not on file Other Topics Concern ??? Not on file Social History Narrative Merged History Encounter Family History Problem Relation Age of Onset ??? Breast Cancer after age 50 or unknown Sister ??? Cancer Breast Sister late 30's ??? Cancer Father lung ??? Cancer Sister breast cancer Current Outpatient Prescriptions on File Prior to Visit Medication Sig Dispense Refill ??? traMADol (ULTRAM) 50 MG tablet 1 Tab 3 times daily ??? DULoxetine (CYMBALTA) 60 MG capsule Take 1 Cap by mouth once daily 30 Cap 5 ??? ibuprofen (MOTRIN) 800 MG tablet Take 1 Tab by mouth every 6 hours as needed for Pain 50 Tab 0 ??? Raloxifene HCl (EVISTA PO) Take 60 mg by mouth. ??? aspirin (ASPIRIN) 81 MG tablet Take 81 mg by mouth once daily. ??? gabapentin (NEURONTIN) 300 MG capsule Take 600 mg by mouth at bedtime. ??? meloxicam (MOBIC) 7.5 MG tablet Take 1 Tab by mouth once daily 90 Tab 3 No current facility-administered medications on file prior to visit. Review of Systems A 12 point review of systems was performed and was negative except for poor memory Physical Examination Vitals: 11/05/15 1149 BP: 140/96 Weight: 84.823 kg (187 lb) General: Ernestine Salinas is a well nourished, well developed female in no acute distress. She is pleasant and cooperative with both interview and examination. She appears her stated age. Height: 180.3 cm (5' 11) Weight: 84.823 kg (187 lb) Skin: Skin and integumentary systems are grossly intact. HEENT: Normocephalic, atraumatic. No thyromegaly is noted. Extra-ocular movements are intact. Face is symmetric. Neck is soft and supple. Trachea is midline. CV: No JVD. No murmurs. Abdomen: Soft, benign. Psych: Mental status is appropriate Resp: Unlabored respirations. Symmetric chest expansion Ext: No clubbing, cyanosis or edema Neurologic Exam: Mental Status Alert and oriented x3. Speech is fluent without obvious aphasia. Cranial Nerves Face is symmetric. EOMI. PERRL. Oropharynx moist. Motor Strength Full strength in all four extremities Sensory Intact to Light touch throughout Reflexes No pathologic Lab Findings: Recent Labs Component Name 04/01/15 1101 10/24/14 0836 01/03/14 1512 WBC 7.7 5.1 5.9 HGB 14.2 14.1 13.5 HCT 44.4 44.7 41.4 PLTCOUNT 184 179 174 Recent Labs Component Name 10/24/14 0836 SEDRATE 2 No results for input(s): PT in the last 04455 hours. No results for input(s): PTT in the last 18889 hours. Recent Labs Component Name 04/01/15 1101 10/24/14 0836 01/03/14 1512 SODIUM 143 143 142 POTASSIUM 4.0 4.4 3.9 CO2 28 26 26 Recent Labs Component Name 04/01/15 1101 10/24/14 0836 01/03/14 1512 BUN 15 17 12 Recent Labs Component Name 04/01/15 1101 10/24/14 0836 01/03/14 1512 CREATININE 0.73 0.84 0.74 No results for input(s): COLORUA, CHARACTERUA, SPECGRAVUA, PHUA, PROTEINUA, BLOODUA, LEUKOCYTEUA, NITRITEUA, GLUCOSEUA, KETONEUA, BILIRUBINUA, UROBILINUA in the last 29648 hours. Interpretation of Radiographic Studies: MRI L spine with scoliosis and multilevel right sided predominantly foraminal stenosis worse at L2/3 Impression/Plan Ernestine Salinas is a 75 y.o. female who presents with a symptomatic degenerative thoracolumbar scoliosis. We discussed treatment options and her desire is to simply have her back fixed. I explained to her that in my opinion the challenge of treating a lumbar scoliosis is dealing with both the scoliosis and foraminal stenosis. I suspect the worst of her pain is from the right L2/3 level and have recommended PT and an STONE. If she is not improving, I will see her back with scoli films and a DEXA scan. I would likely recommend a L2-5 fusion with IB and SPO. Given this degree of surgery I have encouraged her to exhaust her conservative options. I have marked patients medications, allergies, and problem list as reviewed. This does not imply that I necessarily agree with this information, I have simply reviewed it. Shakeel Santana MD documented in this encounter Plan of Treatment Scheduled Orders Name Type Priority Associated Diagnoses Orde r Schedule PT EVAL AND TREAT PT Routine Spinal stenosis, unspecified spinal region Scoliosis of thoracolumbar spine, unspecified scoliosis type Ordered: 11/05/2015 documented as of this encounter Procedures Procedure Name Priority Date/Time Associated Diagnosis Comments AMB REFERRAL TO NEUROSURGERY Routine 11/06/2015 7:18 AM CDT Spinal stenosis, unspecified spinal region documented in this encounter Results * DEXA BONE DENSITY 2 SITES (11/27/2015 7:48 AM CDT) Anatomical Region Laterality Modality Mammography 11/27/2015 12:1 6 PM CDT Impressions 11/27/2015 12:16 PM CDT LUMBAR: Normal Range. FEMUR: Moderate osteopenia Narrative 11/27/2015 12:16 PM CDT BONE MINERAL DENSITY STUDY: TECHNIQUE: Standard DEXA examination. Exam Location: [facility]: [employer] A ([place] 5.5.2) [facility]: [employer] SL QDR ([place] 3.4) [facility] [address]: [employer] 2005 INDICATION: ?? Post menopausal woman COMPARISON: [...] FRAX Calculation - 10 year Fracture Risks ([facility] Only): Frax Version 3.08: probability calculated for untreated patient. Major osteoporotic fracture, %: Not available. Hip fracture, %: Not available. Procedure Note Luis Cruz MD - 11/27/2015 BONE MINERAL DENSITY STUDY: TECHNIQUE: Standard DEXA examination. Exam Location: [facility]: [employer] A ([place] 5.5.2) [facility]: [employer] SL QDR ([place] 3.4) [facility] [address]: [employer] 2005 INDICATION: Post menopausal woman COMPARISON: No [...] FRAX Calculation - 10 year Fracture Risks ([facility] Only): Frax Version 3.08: probability calculated for untreated patient. Major osteoporotic fracture, %: Not available. Hip fracture, %: Not available. IMPRESSION LUMBAR: Normal Range. FEMUR: Moderate osteopenia Shakeel Santana MD DEXA ORDERABLES * AMB REFERRAL TO NEUROSURGERY (11/06/2015 7:18 AM CDT) Kit Kyle MD OUTPATIENT REFERRALS documented in this encounter Visit Diagnoses Diagnosis Scoliosis of thoracolumbar spine, unspecified scoliosis type- Primary Spinal stenosis, unspecified spinal region Spinal stenosis, unspecified spinal region Scoliosis of thoracolumbar spine, unspecified scoliosis type documented in this encounter Care Teams Title Attorney Relationship Specialty Start Date End Date Kit Kyle MD [address] [place] [address] PCP - General Internal Medicine 12/19/13 12/15/16 Senthil Michael MD [address] [place] [address] Podiatry 12/21/14 documented as of this encounter
--- OUTSIDE RECORDS SUMMARY | 2024-07-15 03:04 | XMS_ITS | Encounter Summary ---
Author Organization [facility] Address [address] [facility] [place] [address] Care Team Providers Care Special Education Aide Name Role Phone Kit Kyle MD Primary Care Provider [phone] Senthil Michael MD Unavailable [phone] Reason for Visit * Reason Onset Date Comments Referral 11/06/2015 Encounter Details Date Type Department Care Team (Late st Contact Info) Description 11/06/2015 Telephone [facility] - Internal Medicine [address] [place] [address] Kit Kyle MD [address] [place], [place] [address] [address] [place] [address] Referral Social History Tobacco Use Types Packs/Day Years [...] encounter Miscellaneous Notes * Telephone Encounter - Sowmya Melton - 11/06/2015 10:11 AM CDT Pt seen Dr Santana yesterday and her referred her to pain management. Dr Mena office is needinga referral fist. Order pended documented in this encounter Plan of Treatment Not on file documented as of this encounter Visit Diagnoses Diagnosis Spinal stenosis, unspecified spinal region- Primary documented in this encounter Care Teams Special Education Aide Relationship Specialty Start Date End Date Kit Kyle MD [address] [place] [address] PCP - General Internal Medicine 12/19/13 12/15/16 Senthil Michael MD [address] [place] [address] Podiatry 12/21/14 documented as of this encounter
--- OUTSIDE RECORDS SUMMARY | 2024-07-15 03:04 | XMS_ITS | Encounter Summary ---
Author Organization [facility] Address [address] [place] [address] Care Team Providers Care Health Type Technician Name Role Phone Kit Kyle MD Primary Care Provider [phone] Senthil Michael MD Unavailable [phone] Reason for Visit * Reason Onset Date Comments MEDICATION REFILL 04/20/2015 Encounter Details Date Type Department Care Team (Late st Contact Info) Description 04/20/2015 Refill [facility] - Internal Medicine [address] [place] [address] Kit Kyle MD [address] [place] [address] MEDICATION REFILL Social History Tobacco [...] * Telephone Encounter - Mariam Burch - 04/22/2015 10:15 AM CDT Pt states the ibuprofen works better than the meloxicam. She would like ibuprofen refilled. * Telephone Encounter - Kit Kyle MD - 04/20/2015 4:42 PM CDT Should be on one or the other, not both * Telephone Encounter - Carolina Byrd - 04/20/2015 9:22 AM CDT Pt calling for refill of Ibuprofen 600mg and also Meloxican 7.5 mg, but asking if she should be on both of the meds? Call pt at [phone] documented in this encounter Plan of Treatment Not on file documented as of this encounter Visit Diagnoses Not on filedocumented in this encounter Care Teams Health Type Technician Relationship Specialty Start Date End Date Kit Kyle MD [address] [place] [address] PCP - General Internal Medicine 12/19/13 12/15/16 Senthil Michael MD [address] [place] [address] [place] [address] Podiatry 12/21/14 documented as of this encounter
--- OUTSIDE RECORDS SUMMARY | 2024-07-15 03:04 | XMS_ITS | Encounter Summary ---
Author Organization [facility] Health Address [address] [place] [address] Care Team Providers Care Brush Trimming Machine Setter Name Role Phone Kit Kyle MD Primary Care Provider Senthil Michael MD Unavailable [phone] Reason for Visit * Reason Comments Pain Back Referred by Dr. Michael barnett for LBP that radiates into right hip and down interior right leg to the knee. Pain started in May, no accident or injury. MRI in [facility]. Currently in PT, has not noticed any difference yet. Encounter Details Date Type Department Care Team (Late st Contact Info) Description 11/21/2015 8:30 AM CDT Office Visit [facility] Health Pain Care [address] [place] [address], [address] [place] [id number] Jayden Carballo MD [address] [place] [address] [address] [place] [address] Spinal stenosis, unspecified spinal region (Primary Dx); Neuropathy; Lumbosacral radiculopathy; Myalgia Social History Tobacco Use Types Packs/Day Years [...] Sign Reading Time Taken Comments Blood Pressure 133/79 11/21/2015 8:22 AM CDT Pulse 82 11/21/2015 8:22 AM CDT Temperature - - Respiratory Rate 18 11/21/2015 8:22 AM CDT Oxygen Saturation 99% 11/21/2015 8:22 AM CDT Inhaled Oxygen Concentration - - Weight 83.9 kg (185 lb) 11/21/2015 8:22 AM CDT Height 180.3 cm (5' 11) 11/21/2015 8:22 AM CDT Body Mass Index 25.8 11/21/2015 8:22 AM CDT documented in this encounter Functional [...] this encounter Patient Instructions * Patient Instructions* Buffy Adorno RN - 11/21/2015 9:02 AM CDT CLINIC DISCHARGE INSTRUCTIONS The name of your procedure: right L2-3 and L3-4 TFESI If you take any blood thinning medications, please make sure the staff is aware. These types of medications may need to be stopped prior to your procedure. If you are having a procedure on your neck, please wear a camisole/tank top/loose fitting shirt theday of your procedure. If you are having a procedure on your back, please wear loose fitting/elastic banded pants the day of your procedure. Please contact your pharmacy for medication refills and they will send us a refill request. Our office is open Wednesday through Wednesday from 8:00 - 4:30. You can contact us during those hours [phone]. Please contact your primary care physician for any concerns outside of normal business hours. In the case of an emergency, please call 911 or go to the nearest emergency department. For further information about our clinic, please visit our website at: [email or web address] documented in this encounter Progress Notes * Jayden Carballo MD - 11/21/2015 8:34 AM CDT Subjective: Chief Complaint Patient presents with ??? Pain Back Referred by Dr. Santana for LBP that radiates into right hip and down interior right leg to the knee.Pain started in May, no accident or injury. MRI in [facility]. Currently in PT, has not noticed any difference yet. HPI: Ernestine Salinas is a 75 y.o. White/ female referred by No ref. provider found (PCP is Kit Kyle MD) for evaluation and treatment of right sided low back pain with radiation to the anterior right leg to the right knee. This started in May without an inciting event. The symptoms have been progressive. The pain is rated 8 /10, and is located at the right lumbar area or radiating to right leg(s). The pain is described as sharp or stabbing and is all day. Symptoms are exacerbated by flexion/extension, standing and walking. Factors which relieve the pain include change in body position and rest. Other associated symptoms include tingling and numbness in the bilateral feet; She feels like her right leg gives out. Previous history of symptoms: never. Patient denies bowel/bladder symptoms, fever, chills, infections, or weakness. Prior Pain Medications - tramadol, gabapentin, cymbalta, Psychiatric History: Difficulty Sleeping? Yes History of Depression, Anxiety, Suicidal Ideation, or other psychiatric disorder? No History of Substance Abuse or Addiction? No PREVIOUS TREATMENTS: Physical Therapy - Not Improved PREVIOUS TESTING: MRI 11/06/15: L2-3: Disc bulging and spurring to the [...] recess and foraminal stenosis. No Known Allergies Past Medical History Diagnosis Date ??? Other and unspecified hyperlipidemia Hyperlipidemia ??? Arthritis ??? Hepatitis when she was 14 yrs old ??? Osteoporosis Past Surgical History Procedure Laterality Date ??? Hernia repair, umbilical ??? Cataract removal bilateral ??? Knee arthroscopy left ??? Knee replacement 11/13/2010 LEFT UNI ??? Cardiac cath 01/05/2014 Dr. Guzman Family History Problem Relation Age of Onset ??? Breast Cancer after age 50 or unknown Sister ??? Cancer Breast Sister late 30's ??? Cancer Father lung ??? Cancer Sister breast cancer Current Outpatient Prescriptions Medication Sig Dispense Refill ??? methylPREDNISolone (MEDROL DOSEPAK) 4 MG tablet Take by mouth as directed 21 Tab 0 ??? atorvastatin (LIPITOR) 40 MG tablet Take 40 mg by mouth once daily ??? tiZANidine HCl 4 MG Take 4 mg by mouth 2 times daily ??? ibuprofen (MOTRIN) 800 MG tablet Take 1 Tab by mouth every 6 hours as needed for Pain 50 Tab 0 ??? Raloxifene HCl (EVISTA PO) Take 60 mg by mouth. ??? aspirin (ASPIRIN) 81 MG tablet Take 81 mg by mouth once daily. ??? gabapentin (NEURONTIN) 300 MG capsule Take 600 mg by mouth at bedtime. ??? traMADol (ULTRAM) 50 MG tablet 1 Tab 3 times daily ??? DULoxetine (CYMBALTA) 60 MG capsule Take 1 Cap by mouth once daily (Patient not taking: Reported on 11/21/2015) 30 Cap 5 ??? meloxicam (MOBIC) 7.5 MG tablet Take 1 Tab by mouth once daily (Patient not taking: Reported on11/21/2015) 90 Tab 3 No current facility-administered medications for this visit. Blood Thinning Medications (such as Plavix, Coumadin, Warfarin, Aggrenox, Heparin, or Aspirin): No History Social History ??? Marital Status: Spouse [...] file Social History Narrative Merged History Encounter Occupation: retired Currently Working: No REVIEW OF SYSTEMS: GEN: Patient indicates [...] Denies depression, anxiety, sleep distubances,or suicidal tendencies. Objective: Vitals: BP 133/79 mmHg Pulse 82 Resp 18 Ht 1.803 m (5' 11) Wt 83.915 kg (185 lb) BMI 25.81 kg/m2 SpO2 99% Constitutional: alert, cooperative, no distress Circulation: Carotid and pedal pulses are intact and symmetrical, no carotid bruits Eyes: sclera and conjunctiva clear, EOMI and PERRL, lids normal Ears: canals clear, hearing intact to voice Nose: nares open; no septal deviation is noted Throat: no mucous membrane abnormalities no masses, thyroid not enlarged, no adenopathy Cardiovascular regular rhythm, regular rate Edema: none Respiratory: Normal chest wall excusion, unlabored breathing Musculoskelatal Gait: Normal Focused Exam: CERVICAL EXAM: ROM:Normal for flexion, Normal for [...] middle right spasms with associated tenderness to palpation. Straight-leg raise:right with low back pain and with lower extremity pain Kyphosis:No Scoliosis:No SACROILIAC JOINT EXAM: Sacroiliac Joint:Thigh thrust: right Fabers: right Sacral thrust: Yes NEUROLOGIC EXAM: Strength LE: abductor 5/5; quadraceps 5/5; hamstrings 5/5; adductors 5/5; iliopsoas 5/5, anterior tibial 5/5; gastrosolues 5/5; EHL 5/5; peroneal posterior tibial 5/5 Sensation: decreased sensation to soft touch and pin prick Reflexes: 2+ bilaterally Skin: No rashes Psychiatric: Normal affect Labs: No results for input(s): TWVKYCISR4WI, CUHUZAFL4II, AMT9SGFK, BYXEHETYAV9B, RURBAHSVKJ3W, TYRBNRHMTW7Y, KDOERAVKS2PQ, DFTKKUYYE6SN, JDULSF5AH, XZEPTDXJGI5E in the last 62987 hours. Invalid input(s): EJKTGAZYB7RJ Recent Labs Component Name 04/01/15 1101 10/24/14 0836 01/03/14 1512 SODIUM 143 143 142 POTASSIUM 4.0 4.4 3.9 CHLORIDE 107 102 104 CO2 28 26 26 BUN 15 17 12 CREATININE 0.73 0.84 0.74 GLUCOSE 101 99 95 CALCIUM 9.0 9.1 8.7 No results for input(s): INR in the last 86736 hours. No results for input(s): PT in the last 04078limds. No results for input(s): PTT in the last 91736 hours. Labs Reviewed: Yes Images Reviewed: Yes Comorbid Conditions: Hypercholesterolemia Assessment: Based on the patient's complaints, physical examination, and imaging data, there appear to be the following diagnoses: ICD-10-CM 1. Spinal stenosis, unspecified spinal region M48.00 2. Neuropathy G62.9 3. Lumbosacral radiculopathy M54.17 4. Myalgia M79.1 Plan: 1. The pain is entirely consistent with right sided L2 and L3 radiculopathy. I will schedule her for right L2-3 and L3-4 TFESI. 2. Could consider LESI more for the stenosis and claudication. 3. Medrol dosepak today. 4. We discussed adjusting the gabapentin but she wanted to hold off for now. 5. I briefly mentioned SCS which may be an option at some point in the future. 6. Continue NSAID. The mechanism and putative source of the pain was discussed with the patient. The risks and potential complications of the treatment plan were discussed. Patient appears to understand and agrees to proceed. The patient was encouraged to continue her physical activity and physical therapy as tolerated. Shewas encouraged to continue her medications as previously prescribed. Orders Placed This Encounter ??? methylPREDNISolone (MEDROL DOSEPAK) 4 MG tablet Sig: Take by mouth as directed Dispense: 21 Tab Refill: 0 Thank you for the consult. Please call if there any questions. Jayden Carballo M.D. Taking into consideration the severity of the present illness, comorbidities, treatments ordered, and management option selected, the level of medical decision making is moderate. documented in this encounter Plan of Treatment Not on file documented as of this encounter Visit Diagnoses Diagnosis Spinal stenosis, unspecified spinal region- Primary Neuropathy Mononeuritis of unspecified site Lumbosacral radiculopathy Thoracic or lumbosacral neuritis or radiculitis, unspecified Myalgia Mylagia and myositis, unspecified documented in this encounter Care Teams Brush Trimming Machine Setter Relationship Specialty Start Date End Date Kit Kyle MD [address] [facility] [place] [address] PCP - General Internal Medicine 12/19/13 12/15/16 Senthil Michael MD [address] [place], [place] [address], [place] [address] Podiatry 12/21/14 documented as of this encounter
--- OUTSIDE RECORDS SUMMARY | 2024-07-15 03:04 | XMS_ITS | Clinical Summary ---
Author Organization [facility] [employer] Address [address] [facility] [place] [address] Care Team Providers Care Building Cleaner Name Role Phone Senthil Michael MD Unavailable Source Comments [facility] [employer],non-owned Affiliates and Associated Physician Practices is amultiple site organization consisting of ambulatory clinics and hospital sitesin [place], [place], [place] and [place]. This disclosure is being madepursuant to the Care Everywhere program and may not contain all information available regarding this patient. Last updated 18.[facility] [employer] Allergies No known active allergies Medications * Be aware that medications may not be up to date on this document. Always verify current medications with the patient. Medication Sig [...] Name Administration Dates Next Due DT 05/18/2009 Family History Medical History Relation Name Comments Cancer Father lung Breast Cancer after age 50 or unknown Sister 1 Cancer - Breast Sister 1 late 30's Cancer Sister 2 breast cancer Relation Name Status Comments Brother Father Mother Sister 1 Sister 2 Social History Tobacco Use Types Packs/Day Years [...] Mass Index 26.26 01/27/2016 10:04 AM CDT Plan of Treatment Health Maintenance Due Date Last Done Comments ZOSTER VACCINE (1 of 2) 1992 PNEUMOCOCCAL VACCINE 65+ (1 of 1 - PCV) 10/16/2007 Respiratory Syncytial Virus (RSV) Vaccine Pt: or over 60 yrs (1 - 1-dose 75+ series) 2017 DTAP/TDAP/TD VACCINES (2 - Tdap) 05/18/2019 05/18/20 09 DEPRESSION SCREENING 07/12/2023 MEDICARE AWV ? CALENDAR YEAR 2023 COVID-19 VACCINE ( - 2023-2 5 season) 2024 INFLUENZA VACCINE (#1) 2024 BONE DENSITY TESTING Completed 11/27/2015 HEPATITIS B VACCINE Aged Out No longe r eligible based on patient's age to complete this topic HIB VACCINE Aged Out No longer eligi ble based on patient's age to complete this topic HPV VACCINE Aged Out No longer eligi ble based on patient's age to complete this topic MENINGOCOCCAL VACCINE Aged Out No jacob augustine eligible based on patient's age to complete this topic Procedures Procedure Name Priority Date/Time Associated Diagnosis [...] STUDY: TECHNIQUE: Standard DEXA examination. Exam Location: [facility]: [email or web address] Horizon A ([place] 5.5.2) [facility] [place] [facility]: Bookmate SL QDR ([place] 3.4) [facility] [address]: Social[employer] 2005 INDICATION: ?? Post menopausal woman COMPARISON: [...] FRAX Calculation - 10 year Fracture Risks ([facility] Only): Frax Version 3.08: probability calculated for untreated patient. Major osteoporotic fracture, %: Not available. Hip fracture, %: Not available. Procedure Note Luis Cruz MD - 11/27/2015 BONE MINERAL DENSITY STUDY: TECHNIQUE: Standard DEXA examination. Exam Location: [facility]: [email or web address] Horizon A ([place] 5.5.2) [facility] [place] [facility]: [email or web address] Discovery SL QDR ([place] 3.4) [facility] [address]: [place] - Oncore 2005 INDICATION: Post menopausal woman [...] FRAX Calculation - 10 year Fracture Risks ([facility] Only): Frax Version 3.08: probability [...] 12:02 PM 11/15/2010 1:04 AM Care Teams Building Cleaner Relationship Specialty Start Date End Date Senthil Michael MD [address] [place] [address] Podiatry 12/21/14
--- OUTSIDE RECORDS SUMMARY | 2024-07-15 03:04 | XMS_ITS | Encounter Summary ---
Author Organization [facility] Address [address] [place] [address] Care Team Providers Care Water Meter Mechanic Name Role Phone Kit Kyle MD Primary Care Provider Encounter Details Date Type Department Care Team (Latest Contact Info) Description 05/17/2014 11:55 AM PHOTOGRAPHER MODEL - 05/17/2014 11:59 PM [facility] Hospital Encounter [facility] Radiology [address] [place] [address] Kit Kyle MD [address] [place] [address] [address] [place] [address] Discharge Disposition: Home or Self [...] daily. 04/01/2015 documented as of this encounter Progress Notes * Kit Kyle MD - 05/17/2014 2:06 PM CSTQuick Note: I called patient and spoke to them or left message with normal results. OGRAPHER MODEL documented in this encounter Plan of Treatment Not on file documented as of this encounter Procedures Procedure Name Priority Date/Time Associated Diagnosis Comments XR HIP RIGHT 2VW OR MORE Routine 05/17/2014 12:19 PM PHOTOGRAPHER MODEL Hip pain, right XR PELVIS 1 OR 2VW Routine 05/17/2014 12 :19 PM PHOTOGRAPHER MODEL Hip pain, right documented in this encounter Results * XR HIP 2+ VW RIGHT (05/17/2014 12:19 PM PHOTOGRAPHER MODEL) Anatomical Region Laterality Modality Pelvis, Lower Extremity Radiogra phic Imaging 05/17/2014 1:39 PM PHOTOGRAPHER MODEL Impressions 05/17/2014 1:41 PM PHOTOGRAPHER MODEL Right femoroacetabular significant degenerative changes with decreased joint space. No evidence of fracture. Narrative 05/17/2014 1:41 PM PHOTOGRAPHER MODEL X-RAY, RIGHT HIP SERIES HISTORY: Status post [...] 1 OR 2 VW (05/17/2014 12:19 PM PHOTOGRAPHER MODEL) Anatomical Region Laterality Modality Pelvis Radiographic Mely ging 05/17/2014 1:52 PM PHOTOGRAPHER MODEL Impressions 05/17/2014 1:54 PM PHOTOGRAPHER MODEL 1. Negative for pelvic fracture. 2. 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 Narrative 05/17/2014 1:54 PM PHOTOGRAPHER MODEL X-RAY PELVIS HISTORY: ??Right hip pain after a fall 2 weeks ago. TECHNIQUE: ??Single AP view of the pelvis is submitted. COMPARISON: Right hip series today FINDINGS: ??Normal anatomic alignment of the bony pelvis is present. ??No acute fracture is seen. Sever degenerative changes of right hip are seen, with superior knen-wf-btns joint space loss, with subchondral sclerosis and [...] of right hip are seen, with superior vxlk-gd-xxha joint space loss, with subchondral sclerosis and marginal spurring . The sacroiliac joints are patent. Soft tissue structure are unremarkable. IMPRESSION 1. Negative for pelvic fracture. 2. 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 Kit Kyle MD DIAGNOSTIC IMAGING O VINNIE documented in this encounter Visit Diagnoses Diagnosis Hip pain, right Pain in joint, pelvic region and thigh documented in this encounter Care Teams Water Meter Mechanic Relationship Specialty Start Date End Date Kit Kyle MD [address] [place] [address] PCP - General Internal Medicine 12/19/13 12/15/16 documented as of this encounter
--- OUTSIDE RECORDS SUMMARY | 2024-07-15 03:04 | XMS_ITS | Encounter Summary ---
Author Organization [facility] Address [address] [place] [address] Care Team Providers Care Scientific Investigator Name Role Phone Kit Kyle MD Primary Care Provider Senthil Michael MD Unavailable [phone] Reason for Referral * Radiology Services (Routine) - Closed Specialty Diagnoses / Procedures Referred By Contac t Referred To Contact Diagnoses Spinal stenosis, unspecified spinal region Procedures FL GUIDED SPINAL INJECTION Jayden Carballo MD [address] [facility] [place] [address] Referral ID Status Reason Start Date Expiration Date Visits Re quested Visits Authorized [id number] Closed 11/26/2015 05/24/2016 1 1 Reason for Visit * Radiology Services (Routine) - Closed Specialty Diagnoses / Procedures Referred By Contac t Referred To Contact Diagnoses Spinal stenosis, unspecified spinal region Procedures FL GUIDED SPINAL INJECTION Jayden Carballo MD [address] [place] [address] Referral ID Status Reason Start Date Expiration Date Visits Re quested Visits Authorized [id number] Closed 11/26/2015 05/24/2016 1 1 Encounter Details Date Type Department Care Team (Latest Contact Info) Description 11/26/2015 9:46 AM CDT - 11/26/2015 11:06 AM CDT Hospital Encounter [facility] - Radiology [address] [place] [address] Jayden Carballo MD [address] [facility] [address] [place] [address] Discharge Disposition: Home or Self Care Social [...] daily gabapentin (NEURONTIN) 300 MG capsule Take 600 [...] Comments FL SPINAL INJECTION OR ASPIRATE Routine 11/26/2015 11:44 AM CDT Spinal stenosis, unspecified spinal region documented in this encounter Results * FL GUIDED SPINAL INJECTION (11/26/2015 11:44 AM CDT) Anatomical Region Laterality Modality Spine Radiographic Mely ging 11/26/2015 11:5 6 AM CDT Narrative 11/26/2015 11:56 AM CDT Indication: Pain management Findings: 2 views demonstrate lower lumbar localization for pain management. Fluoroscopy time: 19 seconds. Procedure Note Bladimir Arroyo MD - 11/26/2015 Indication: Pain management Findings: 2 views demonstrate lower lumbar localization for pain management. Fluoroscopy time: 19 seconds. Jayden Carballo MD FLUOROSCOPY ORDERABL ES documented in this encounter Visit Diagnoses Diagnosis Spinal stenosis, unspecified spinal region documented in this encounter Care Teams Scientific Investigator Relationship Specialty Start Date End Date Kit Kyle MD [address] [place] [address] PCP - General Internal Medicine 12/19/13 12/15/16 Senthil Michael MD [address] [place] [phone] Podiatry 12/21/14 documented as of this encounter
--- OUTSIDE RECORDS SUMMARY | 2024-07-15 03:04 | XMS_ITS | Encounter Summary ---
Author Organization [facility] Address [address] [facility] [place] [address] Care Team Providers Care Photolith Operator Name Role Phone Kit Kyle MD Primary Care Provider Senthil Michael MD Unavailable Reason for Referral * Evaluate & Treat - Closed Specialty Diagnoses / Procedures Referred By Mecca t Referred To Contact Neurological Surgery Diagnoses Spinal stenosis, unspecified spinal region Kit Kyle MD [address] [facility] [address] [place] [address] [address], [address] [place] [address] Referral ID Status Reason Start Date Expiration Date V isits Requested Visits Authorized [id number] Closed Specialty Services Required 10/24/2015 04/21/2016 1 1 Scheduling Instructions MD Shakeel Lopez MD Reason for Visit * Reason Comments Results Encounter Details Date Type Department Care Team (Late st Contact Info) Description 10/24/2015 1:45 PM CDT Office Visit [facility] - Internal Medicine [address] [place] [address] Kit Kyle MD [address] [facility] [address] [place] [address] Spinal stenosis, unspecified spinal region (Primary Dx) Social History Tobacco Use Types [...] Sign Reading Time Taken Comments Blood Pressure 130/84 10/24/2015 1:14 PM CDT Pulse 74 10/24/2015 1:14 PM CDT Temperature - - Respiratory Rate - - Oxygen Saturation - - Inhaled Oxygen Concentration - - Weight 86.2 kg (190 lb) 10/24/2015 1:14 PM CDT Height 180.3 cm (5' 11) 10/24/2015 1:14 PM CDT Body Mass Index 26.5 10/24/2015 1:14 PM CDT documented in this encounter Functional [...] Progress Notes * Kit Kyle MD - 10/29/2015 9:10 AM CDT Encounter Diagnosis Name Primary? Spinal stenosis, unspecified spinal region Yes Patient is here for followup after recent MRI does have significant spinal stenosis which is symptomatic. I have reviewed the medication list, allergy list, and problem list as documented in Epic. The review of systems is as documented in the HPI OBJECTIVE: BP 130/84 mmHg Pulse 74 Wt 86.183 kg (190 lb) BMI 26.51 kg/m2 General appearance: alert, well appearing, and in no distress. Neck exam - supple, no significant adenopathy CVS exam: normal rate, regular rhythm, normal S1, S2, no murmurs, rubs, clicks or gallops. Chest: clear to auscultation, no wheezes, rales or rhonchi, symmetric air entry. Abdominal exam: not examined. Exam of extremities: no pedal edema noted Encounter Diagnosis Name Primary? Spinal stenosis, unspecified spinal region Yes Orders Placed This Encounter ??? AMB REFERRAL TO NEUROSURGERY Will refer to Neurosurgery for their opinion on this matter may benefit from injection therapy * Maribel Polk - 10/24/2015 1:14 PM CDT Ernestine Salinas is a 75 y.o. female is here today for a follow up on an MRI of spine done 10/23/15. documented in this encounter Plan of Treatment Not on file documented as of this encounter Results * AMB REFERRAL TO NEUROSURGERY (11/06/2015 7:18 AM CDT) Kit Kyle MD OUTPATIENT REFERRALS documented in this encounter Visit Diagnoses Diagnosis Spinal stenosis, unspecified spinal region- Primary documented in this encounter Care Teams Photolith Operator Relationship Specialty Start Date End Date Kit Kyle MD [address] [place] [address] [address] [place] [address] PCP - General Internal Medicine 12/19/13 12/15/16 Senthil Michael MD [address] [place] [phone] Podiatry 12/21/14 documented as of this encounter
--- OUTSIDE RECORDS SUMMARY | 2024-07-15 03:04 | XMS_ITS | Encounter Summary ---
Author Organization [facility] Address [address] [facility] [place] [address] Care Team Providers Care Appraiser Art Name Role Phone Kit Kyle MD Primary Care Provider [phone] Reason for Visit * Reason Onset Date Comments MEDICATION REFILL 05/31/2014 Encounter Details Date Type Department Care Team (Late st Contact Info) Description 05/31/2014 Refill [facility] - Internal Medicine [address] [place] [address] Kit Kyle MD [address] [place] [address] MEDICATION REFILL Social History Tobacco [...] * Telephone Encounter - Becky Dinh - 05/31/2014 12:02 PM CST LV: 05/17/14 LF: 03/09/14 ENT CARRIER documented in this encounter Plan of Treatment Not on file documented as of this encounter Visit Diagnoses Not on filedocumented in this encounter Care Teams Appraiser Art Relationship Specialty Start Date End Date Kit Kyle MD [address] [place] [address] PCP - General Internal Medicine 12/19/13 12/15/16 documented as of this encounter
--- OUTSIDE RECORDS SUMMARY | 2024-07-15 03:05 | XMS_ITS | Encounter Summary ---
Author Organization [facility] Address [address] [facility] [address] Care Team Providers Care Dramatic Teacher Name Role Phone Kit Kyle MD Primary Care Provider Reason for Referral * Cardiac - Closed Specialty Diagnoses / Procedures Referred By Mecca alfaro Referred To Contact Diagnoses Chest pain Procedures ECHOCARDIOGRAM STRESS Kit Kyle MD [address] [place] [address] [address] [place] [address] [facility] [address] [place] [address] Referral ID Status Reason Start Date Expiration Date Visits Re quested Visits Authorized [id number] Closed 12/21/2013 02/04/2014 1 1 Reason for Visit * Cardiac - Closed Specialty Diagnoses / Procedures Referred By Mecca alfaro Referred To Contact Diagnoses Chest pain Procedures ECHOCARDIOGRAM STRESS Kit Kyle MD [address] [place] [address] [address] [place] [address] [facility] [address] [place] [address] Referral ID Status Reason Start Date Expiration Date Visits Re quested Visits Authorized [id number] Closed 12/21/2013 02/04/2014 1 1 Encounter Details Date Type Department Care Team (Latest Contact Info) Description 12/28/2013 1:30 PM CDT - 12/28/2013 11:59 PM CDT Hospital Encounter [facility] [address] [place] [phone] Kit Kyle MD [address] [facility] [address] [place] [address] Discharge Disposition: Home or Self [...] Sign Reading Time Taken Comments Blood Pressure 122/66 12/28/2013 1:30 PM CDT Pulse 65 12/28/2013 1:30 PM CDT Temperature - - Respiratory Rate - - Oxygen Saturation - - Inhaled Oxygen Concentration - - Weight 86.2 kg (190 lb) 12/28/2013 1:30 PM CDT Height 180.3 cm (5' 11) 12/28/2013 1:30 PM CDT Body Mass Index 26.5 12/28/2013 1:30 PM CDT documented in this encounter Medications at Time of Discharge Medication Sig Dispensed Refills Start Date End Date aspirin EC (ECOTRIN) 325 MG tablet Take 1 Tab by mouth 2 times daily with breakfast and dinner. 11/14/2010 01/05/2014 atorvastatin (LIPITOR) 40 MG tablet Take 40 mg by mouth at bedtime. 12/21/2014 CALCIUM 600+D PLUS MINERALS PO Take by mouth. 12/21/2014 CELEBREX 200 MG CAPS Take 200 mg by mouth daily. 10/24/2014 gabapentin (NEURONTIN) 300 MG capsule Take 600 mg by mouth daily with breakfast 12/18/2015 OMEGA 3 1000 MG CAPS Take 1000 mg by mouth daily. 04/01/2015 raloxifene (EVISTA) 60 MG tablet Take 60 mg by mouth once daily. 01/02/2014 VITAMIN B-12 PO Take 100 Units by mouth daily. 04/01/2015 documented as of this encounter Progress Notes * Randi Sotelo APRN-CNP - 12/29/2013 9:22 AM CDTQuick Note: Spoke with pt documented in this encounter Procedure Notes * Rose Guzman MD - 12/28/2013 1:45 PM CDTAssociated Order(s): ECHOCARDIOGRAM STRESS Procedure(s): ECHOCARDIOGRAM STRESS Pre-Procedure Diagnose(s): Chest pain Post-Procedure Diagnose(s): Chest pain [facility] [address] [place] [address]. [id number] PATIENT INFORMATION: Name: Ernestine Salinas : 1940 Age: 73 y.o. Height/Weight: BP 122/66 Pulse 65 Wt 86.183 kg (190 lb) BMI 26.51 kg/m2 Sex: female Escrow Closer: Zohaib Lopez STRESS ECHO WalkingTreadmill / [place] Protocol Date: 12/28/2013 REASON FOR PERFORMING TEST: Chest Pain RISK FACTORS: Hypertension: Negative Hyper lipids: Negative Diabetes: Negative Smoking History: History Smoking status ??? Former Smoker -- 0.5 packs/day for 20 years ??? Quit date: 07/12/1992 Smokeless tobacco ??? Never Used Comment: quit @ 20 yrs ago Family History: - CAD: Negative Previous NM: Negative Post PTCA: Negative Resting EKG: SR Predicted Heart Rate: 100% = 149 85% = 126 BLOOD PRESSURE HEART RATE COMMENTS / SYMPTOMS PRETEST UPRIGHT PRETEST SUPINE STRESS 1 MINUTE 2 MINUTE 3 MINUTE 176/84 122 4 MINUTE 5 MINUTE 6 MINUTE 7 MINUTE 8 MINUTE 9 MINUTE 10 MINUTE 11 MINUTE 12 MINUTE 13 MINUTE 14 MINUTE DOUBLE PRODUCT: 11910 15 MINUTE METS: 4.6 18 MINUTE TEST TERMINATED @ 3:01 MINUTES WITH HEART RATE OF 127 REASON FOR TERMINATION: shortness of breath 85% ACHIEVED RECOVERY BLOOD [...] Poor functional capacity Rose Guzman MD, FACC documented in this encounter Miscellaneous Notes * Miscellaneous Scans - Document, Scanned - 12/29/2013 9:15 PM CDT documented in this encounter Plan of Treatment Not on file documented as of this encounter Procedures Procedure Name Priority Date/Time Associated Diagnosis Comments ECHOCARDIOGRAM STRESS Routine 12/28/2013 2:49 PM CDT Chest pain documented in this encounter Results * ECHOCARDIOGRAM STRESS (12/28/2013 2:49 PM CDT) Narrative [facility] - 12/28/2013 2:49 PM CDT Rose Guzman MD ? 12/28/2013 ??2:49 PM ?? [facility] ?[address] ? [address] ? [place], [place]. ??[id number] PATIENT INFORMATION: Name: ? Ernestine Salinas : ?1940 Age: ?73 y.o. Height/Weight: ? BP 122/66 Pulse 65 Wt 86.183 kg (190 lb) BMI 26.51 kg/m2 Sex: ? female Escrow Closer: ?Zohaib Lopez ? STRESS ECHO ?WalkingTreadmill / [...] Family History: ?- CAD: ?? Negative Previous NM: ?? Negative Post PTCA: ?? Negative ? [...] MINUTE ? 14 MINUTE ?? DOUBLE PRODUCT: ??97035 15 MINUTE ?? METS: ??4.6 18 MINUTE [...] Guzman MD - 12/28/2013 1:45 PM CDT [facility] [address] [place] [address]. [id number] PATIENT INFORMATION: Name: Ernestine Salinas : 1940 Age: 73 y.o. Height/Weight: BP 122/66 Pulse 65 Wt 86.183 kg (190 lb) BMI26.51 kg/m2 Sex: female Escrow Closer: Zohaib Lopez STRESS ECHO WalkingTreadmill / BruceProtocol Date: 12/28/2013 REASON FOR PERFORMING TEST: Chest Pain RISK FACTORS: Hypertension: Negative Hyper lipids: Negative Diabetes: Negative Smoking History: History Smoking status ? ? Former Smoker -- 0.5 packs/day for 20 years ? ? Quit date: 07/12/1992 Smokeless tobacco ? ? Never Used Comment: quit @ 20 yrs ago Family History: - CAD: Negative Previous NM: Negative Post PTCA: Negative Resting EKG: SR Predicted Heart Rate: 100% = 149 85% = 126 BLOOD PRESSURE HEART RATE COMMENTS / SYMPTOMS PRETEST UPRIGHT PRETEST SUPINE STRESS 1 MINUTE 2 MINUTE 3 MINUTE 176/84 122 4 MINUTE 5 MINUTE 6 MINUTE 7 MINUTE 8 MINUTE 9 MINUTE 10 MINUTE 11 MINUTE 12 MINUTE 13 MINUTE 14 MINUTE DOUBLE PRODUCT: 65856 15 MINUTE METS: 4.6 18 MINUTE TEST [...] Poor functional capacity Rose Guzman MD, FACC Electronically signed:12/28/2013 Danielle Bee SUPPLIES PACKER-UTILITY SYSTEMS REPAIRER OPERATOR ECHO ORDERABLES [facility] documented in this encounter Visit Diagnoses Diagnosis Chest pain documented in this encounter Care Teams Dramatic Teacher Relationship Specialty Start Date End Date Kit Kyle MD [address] [place] [address] PCP - General Internal Medicine 12/19/13 12/15/16 documented as of this encounter
--- OUTSIDE RECORDS SUMMARY | 2024-07-15 03:05 | XMS_ITS | Encounter Summary ---
Author Organization [facility] Address [address] [facility] [place] [address] Care Team Providers Care Brush Filler Hand Name Role Phone Kit Kyle MD Primary Care Provider [phone] Encounter Details Date Type Department Care Team (Latest Contact Info) Description 01/22/2014 1:29 PM CDT - 01/22/2014 11:59 PM CDT Hospital Encounter [facility] Radiology [address] [place] [address] Randi Sotelo, INCOME TAX EXPERT-SEGMENTAL PAVER INSTALLER [address] [address] Discharge Disposition: Home or Self Care [...] as of this encounter Progress Notes * Becky Dinh - 01/22/2014 4:24 PM CDTQuick Note: Advised PT * Randi Sotelo APRN-CNP - 01/22/2014 4:03 PM CDTQuick Note: Please let pt know that she has a fracture in the foot like we though. See ortho- give her # for [facility] documented in this encounter Plan of Treatment Not on file documented as of this encounter Procedures Procedure Name Priority Date/Time Associated Diagnosis Comments XR FOOT LEFT 2VW Routine 01/22/2014 2:03 PM CDT Foot pain, left documented in this encounter Results * XR FOOT 2 VW LEFT (01/22/2014 [...] neck of the fifth metatarsal. Randi Sotelo INCOME TAX EXPERT-SEGMENTAL PAVER INSTALLER DIAGNOSTIC IMAG ING ORDERABLES documented in this encounter Visit Diagnoses Diagnosis Foot pain, left Pain in limb documented in this encounter Care Teams Brush Filler Hand Relationship Specialty Start Date End Date Kit Kyle MD [address] [place] [address] PCP - General Internal Medicine 12/19/13 12/15/16 documented as of this encounter
--- OUTSIDE RECORDS SUMMARY | 2024-07-15 03:05 | XMS_ITS | Encounter Summary ---
Author Organization [facility] Address [address] [facility] [place] [address] Care Team Providers Care Picu Nurse Name Role Phone Unavailable Primary Care Provider Unavailabl e Reason for Visit * Reason Comments Establish Care Hair Scalp Problem Encounter Details Date Type Department Care Team (Late st Contact Info) Description 03/29/2008 11:10 AM CDT Office Visit [facility] - Family Medicine [address] [place] [address] Hemanth Vital MD [address] [facility] [address] [place] [address] Pruritus (Primary Dx); Hyperlipidemia Social History Tobacco Use Types Packs/Day Years Used Date Smoking Tobacco: Former Cigarettes Q uit: 07/12/1992 Alcohol Use Standard Drinks/Week Comments Yes 0 (1 standard drink = 0.6 oz pur e alcohol) rare Sex and Gender Information Value Date Recorded Sex Assigned at Not on file Gender Identity Not on file Sexual Orientation Not on file documented as of this encounter Last Filed Vital Signs Vital Sign Reading Time Taken Comments Blood Pressure 130/90 03/29/2008 11:58 AM CDT Pulse 68 03/29/2008 11:58 AM CDT Temperature 37 ??C (98.6 ??F) 03/29/2008 11:58 AM CDT Respiratory Rate - - Oxygen Saturation - - Inhaled Oxygen Concentration - - Weight 94.8 kg (209 lb) 03/29/2008 11:58 AM CDT Height - - Body Mass Index - - documented in this encounter Progress Notes * Arlen Gonzalez - 03/30/2008 10:50 AM CDTQuick Note: Letter sent * Hemanth Vital MD - 03/30/2008 9:06 AM CDTQuick Note: Normal labs * Hemanth Vital MD - 03/29/2008 12:20 PM CDT SUBJECTIVE: Ernestine Salinas is here for itching that started on upper arms that went away and now on neck and shoulders that mostly bothers her at night. Symptoms for the past month. Benadryl helps. No known rash. Denies new meds, lotions, soaps or laundry detergent. No pets at home has application services manager that is male and he does not have symptoms. PMH, PSH, Meds, Allergies, family history, social history all reviewed and appropriate data enteredinto [employer]. ROS negative except for above in HPI BP 130/90 Pulse 68 Temp (Src) 98.6 ??F (Oral) Wt 94.802 kg (209 lb) Physical Examination: General appearance - alert, well appearing, and in no distress Mental status - normal mood, behavior, speech, dress, motor activity, and thought processes Ears - bilateral TM's and external ear canals normal Nose - normal and patent, no erythema, discharge or polyps Mouth - mucous membranes moist, pharynx normal without lesions Neck - supple, no significant adenopathy Chest - clear to auscultation, no wheezes, rales or rhonchi, symmetric air entry Heart - normal rate, regular rhythm, normal S1, S2, no murmurs, rubs, clicks or gallops Abdomen - soft, nontender, nondistended, no masses or organomegaly Skin - normal coloration and turgor, no rashes, no suspicious skin lesions noted. A little dandruff at base of hairline in back. She does have a few secondary excoriations around neck from scratching ASSESSMENT/PLAN: 1. Pruritis - unclear etiolgy - ? Due to sebborheic dermatitis and or dry skin so will try some selenium sulfide lotion per orders, use eucerin cream, samples of xyzal given to take 5 mg QD and checklabs. If not better, f/u documented in this encounter Plan of Treatment Not on file documented as of this encounter Procedures Procedure Name Priority Date/Time Associated Diagnosis Comments CBC W AUTO DIFFERENTIAL Routine 03/29/2008 12:29 PM CDT Pruritus COMPREHENSIVE METABOLIC PANEL Routine 03/29/2008 12:29 PM CDT Hyperlipidemia Pruritus documented in this encounter Results * CBC W AUTO DIFFERENTIAL (03/29/2008 12:29 PM CDT) WBC 6.0 4.0 - 10.5 x10E3/uL [facility] INSURANCE BILL RBC 4.61 3.80 - 5.10 x10E6/uL [facility] INSURANCE BILL Hemoglobin 13.8 11.5 - 15.0 g/dL [facility] INSURANCE BILL Hematocrit 41.4 34.0 - 44.0 % [facility] INSURANCE BILL MCV 90 80 - 98 fL [facility] INSURANCE BILL MCH 29.9 27.0 - 34.0 pg [facility] INSURANCE BILL MCHC 33.4 32.0 - 36.0 g/dL [facility] INSURANCE BILL RDW 14.1 11.7 - 15.0 % [facility] INSURANCE BILL Platelet Count 194 140 - 415 x10E3/uL [facility] INSURANCE BILL Granulocytes % 60 40 - 74 % [facility] INSURANCE BILL Lymphocytes % 30 14 - 46 % [facility] INSURANCE BILL Monocytes % 8 4 - 13 % [facility] INSURANCE BILL Eosinophils % 1 0 - 7 % [facility] INSURANCE BILL Basophils % 1 0 - 3 % [facility] INSURANCE BILL Granulocytes Absolute 3.6 1.8 - 7.8 x10E3/uL [facility] INSURANCE BILL Lymphocytes Absolute 1.8 0.7 - 4.5 x10E3/uL [facility] INSURANCE BILL Monocytes Absolute 0.5 0.1 - 1.0 x10E3/uL [facility] INSURANCE BILL Eosinophils Absolute 0.1 0.0 - 0.4 x10E3/uL [facility] INSURANCE BILL Basophils Absolute 0.1 0.0 - 0.2 x10E3/uL [facility] INSURANCE BILL Comment Hematology NOT AVAIL. [facility] INSURANCE BILL BLOOD SPECIMEN / Unknown 03/29/2008 12:29 PM CDT 03/29/2008 9:39 PM CDT Narrative [facility] INSURANCE BILL - 03/30/2008 6:12 AM CDT Additional Result Information HEMATOLOGY COMMENTS: ??BLOOD,URINE ([facility]): RESULT NOT AVAILABLE Resulting Agency Comment [facility] [address] ??[facility] [id number] Hemanth Vital MD LAB - HEMATOLOGY OR DERABLES [facility] INSURANCE BILL * COMPREHENSIVE METABOLIC PANEL (03/29/2008 12:29 PM CDT) Glucose 94 65 - 99 mg/dL [facility] INSURANCE BILL BUN 15 5 - 26 mg/dL [facility] INSURANCE BILL Creatinine 0.80 0.57 - 1.00 mg/dL [facility] INSURANCE BILL eGFR by MDRD >60 60 - 128 mL/min/1.7 3 [facility] INSURANCE BILL eGFR by MDRD >60 60 - 128 mL/min/1.7 3 [facility] INSURANCE BILL Comment: Note: ??Persistent reduction for 3 months or more in an eGFR <60 mL/min/1.73 m2 defines CKD. ??Patients with eGFR values >/=60 mL/min/1.73 m2 may also have CKD if evidence of persistent proteinuria is present. Additional information may be found at [email or web address]. BUN/Creatinine Ratio 19 8 - 27 [facility] INSURANCE BILL Sodium 144 135 - 145 mmol/L [facility] INSURANCE BILL Potassium 4.2 3.5 - 5.2 mmol/L [facility] INSURANCE BILL Chloride 106 97 - 108 mmol/L [facility] INSURANCE BILL CO2 23 20 - 32 mmol/L [facility] INSURANCE BILL Calcium 9.4 8.5 - 10.6 mg/dL [facility] INSURANCE BILL Protein Total 6.5 6.0 - 8.5 g/dL [facility] INSURANCE BILL Albumin 4.2 3.6 - 4.8 g/dL [facility] INSURANCE BILL Globulin Total 2.3 1.5 - 4.5 g/dL [facility] INSURANCE BILL Albumin/Globulin Ratio 1.8 1.1 - 2.5 [facility] INSURANCE BILL Bilirubin Total 0.6 0.1 - 1.2 mg/dL [facility] INSURANCE BILL Alkaline Phosphatase 95 25 - 165 IU/L [facility] INSURANCE BILL AST 18 0 - 40 IU/L [facility] INSURANCE BILL ALT 20 0 - 40 IU/L [facility] INSURANCE BILL BLOOD SPECIMEN / Unknown 03/29/2008 12:29 PM CDT 03/29/2008 9:39 PM CDT Narrative Resulting Agency Comment [facility] [address] ??[facility] [id number] Hemanth Vital MD LAB - CHEMISTRY ORD ERABLES [facility] INSURANCE BILL documented in this encounter Visit Diagnoses Diagnosis Pruritus- Primary Unspecified pruritic disorder Hyperlipidemia Other and unspecified hyperlipidemia documented in this encounter
--- OUTSIDE RECORDS SUMMARY | 2024-07-15 03:05 | XMS_ITS | Encounter Summary ---
Author Organization [facility] Address [address] [place] [address] Care Team Providers Care Prosthetist Name Role Phone Nopcp, Patient Primary Care Provider Unavailabl e Reason for Visit * Reason Comments Laceration Hand right hand 5ht digit , while slicing onions Encounter Details Date Type Department Care Team (Late st Contact Info) Description 05/18/2009 12:24 PM BLANKET BINDER - 05/18/2009 1:30 PM BLANKET BINDER Emergency ER at [facility] [address] [place] [address] Elysia Hubbard PA [address] [place] [place] [id number] Laceration (Primary Dx) Discharge Disposition: Home or Self Care Social History Tobacco Use Types Packs/Day Years Used Date Smoking Tobacco: Never Alcohol Use Standard Drinks/Week Comments No 0 (1 standard drink = 0.6 oz pur e alcohol) Sex and Gender Information Value Date Recorded Sex Assigned at Not on file Gender Identity Not on file Sexual Orientation Not on file documented as of this encounter Last Filed Vital Signs Vital Sign Reading Time Taken Comments Blood Pressure 164/93 05/18/2009 12:33 PM BLANKET BINDER Pulse 74 05/18/2009 12:33 PM BLANKET BINDER Temperature 36.8 ??C (98.3 ??F) 05/18/2009 12:[address] Respiratory Rate 18 05/18/2009 12:33 PM BLANKET BINDER Oxygen Saturation 97% 05/18/2009 12:33 PM BLANKET BINDER Inhaled Oxygen Concentration - - Weight 95.3 kg (210 lb) 05/18/2009 12:33 PM BLANKET BINDER Height 177.8 cm (5' 10) 05/18/2009 12:33 PM BLANKET BINDER Body Mass Index 30.13 05/18/2009 12:33 PM BLANKET BINDER documented in this encounter Discharge Instructions * Discharge Instructions* Elysia Hubbard PA - 05/18/2009 1:21 PM BLANKET BINDER Keep dressing on for 24 hours May apply neosporin after that 2-3 times per day Keep clean Follow up with Dr. Romo Laceration Care A laceration is a cut or lesion that goes through all layers of the skin and into the tissue just beneath the skin. BEFORE THE PROCEDURE The laceration will be inspected by your caregiver for amount and extent of tissue damage, for bleeding, for evidence of foreign bodies (pieces of dirt, glass, etc.), and for cleanliness. Pain medications can be used if necessary. The wound will then be cleansed to help prevent infection. Sutures, peter, steri strips, or wound adhesive will be used to close the wound, stop bleeding and speed healing. Sometimes this will decrease the likelihood of infection and bleeding. LET YOUR CAREGIVERS KNOW ABOUT THE FOLLOWING: ?? Allergies ?? Medications taken including herbs, eye drops, over the counter medications, and creams ?? Use of steroids (by mouth or creams) ?? Previous problems with anesthetics or novocaine ?? Possibility of , if this applies ?? History of blood clots (thrombophlebitis) ?? History of bleeding or blood problems ?? Previous surgery ?? Other health problems RISKS AND COMPLICATIONS Most lacerations heal fully. The healing time required varies depending on location. Complications of a laceration can include pain, bleeding, infection, dehiscence (splitting open or separation of the wound edges) and scar formation. The likelihood of complication depends on wound complexity, location, and on how the laceration occurred. HOME CARE INSTRUCTIONS ?? If you were given a dressing, you should change it at least once a day, or as instructed by yourcaregiver. If the bandage sticks, soak it off with a solution of hydrogen peroxide or soapy water. ?? Twice a day, wash the area with soap and water and rinse with plain water to remove all soap. Pat (do not rub) dry with a clean towel. Look for signs of infection (see below). ?? Re-apply prescribed creams or ointments as instructed. This will help prevent infection. This also helps keep the bandage from sticking. Telfa over the wound and under the dressing or wrap will also help keep the bandage from sticking. ?? If the bandage becomes wet, dirty, or develops a foul smell, change it as soon as possible. ?? Acetaminophen (Tylenol??) or ibuprofen (Advil?? or Motrin??) may be taken as directed for relieffrom pain and discomfort. ?? Have your sutures, peter, or steri strips removed in days. Steri strips will peel off from the outer edges toward the center and will eventually fall off. Report to your caregiver if thestrips are falling off and the wound does not appear fully healed. SEEK MEDICAL CARE IF: ?? There is redness, swelling, or increasing pain in the wound. ?? There is a red line that goes up your arm or leg. ?? Pus is coming from wound. ?? You develop an unexplained oral temperature above 102?? F (38.9?? C), or as your caregiver suggests. ?? You notice a foul smell coming from the wound or dressing. ?? There is a breaking open of the wound (edges not staying together) before or after sutures have been removed. ?? You notice something coming out of the wound such as wood or glass. ?? The wound is on your hand or foot and you find that you are unable to properly move a finger or toe. ?? There is severe swelling around the wound causing pain and numbness or a change in color in yourarm, hand, leg, or foot. SEEK IMMEDIATE MEDICAL CARE IF: ?? Pain is not controlled with prescribed medication or with acetaminophen or ibuprofen. ?? There is severe swelling around the wound site. ?? The wound splits open and bleeding recurs. ?? You experience worsening numbness, weakness, or loss of function of any joint around or beyond the wound. ?? You develop painful lumps near the wound or on the skin anywhere on your body. If you did not receive a tetanus shot today because you did not recall when your last one was given, make sure to check with your caregiver when you have your sutures removed to determine if you needone. AGREEMENT BETWEEN PATIENT AND HEALTHCARE TEAM: Your signature on this document represents an understanding between you and the healthcare team that took care of you today. That means that you: ?? Understand these discharge instructions. ?? Will monitor your condition. ?? Will seek immediate medical attention as instructed. Document Released: 06/28/2006 Document Re-Released: 04/24/2008 ExitCare?? Patient Information ??2008 [employer]. KET BINDER * Discharge Instructions* Document, Scanned - 05/18/2009 12:00 AM BLANKET BINDER documented in this encounter Medications at Time of Discharge Medication Sig Dispensed Refills Start Date End Date aspirin 81 MG chew tablet Take 81 mg by mouth daily. 11/12/2010 atorvastatin (LIPITOR) 40 MG tablet Take 40 mg by mouth at bedtime. 12/21/2014 CALCIUM 600+D PLUS MINERALS PO Take by mouth. 12/21/2014 CELEBREX 200 MG CAPS Take 200 mg by mouth daily. 10/24/2014 celecoxib (CELEBREX) 200 MG capsule Take 200 mg by mouth daily. 11/12/2010 EVISTA 60 MG TABS Take 60 mg by mouth at bedtime. 11/13/2010 12/20/2013 LIPITOR 40 MG TABS Take 40 mg by mouth at bedtime. 11/12/2010 OMEGA 3 1000 MG CAPS Take 1000 mg by mouth daily. 04/01/2015 raloxifene (EVISTA) 60 MG tablet Take 60 mg by mouth daily. 11/12/2010 selenium (SELSUN) 2.5 % shampoo Apply to affected area daily. Apply and leave on for 10 minutes and then rinse off use for 7 days one bottle 0 03/29/2008 11/12/2010 VITAMIN B-12 PO Take 100 Units by mouth daily. 04/01/2015 vitamin C (ASCORBIC ACID) 500 MG tablet Take 500 mg by mouth daily. 11/12/2010 vitamin E (TOCOPHERYL) 1000 UNIT capsule Take 1 Cap by mouth daily. 11/12/2010 documented as of this encounter ED Notes * Elysia Hubbard PA - 05/18/2009 12:44 PM CST Images from the original note were not included. 05/18/2009 12:44 PM Laceration The history is provided by the patient. The incident occurred 1 - 2 hours ago. The laceration is located on the right fingers.The laceration is 1 cm in size. The depth of the laceration is cutaneous.The quality of the laceration is: avulsed.The laceration mechanism is clean knife. The pain is at a severity of 5/10. The pain has been constant since onset. She reports no foreign bodies present. Hertetanus status is out of date. Review of Systems Constitutional: Negative. Skin: Avulsion laceration to right small finger HENT: Negative. Cardiovascular: Negative. Respiratory: Negative. Musculoskeletal: Negative. Physical Exam Nursing note and vitals reviewed. Constitutional: She is oriented and well-developed, well-nourished, and in no distress. Vital signsare normal. HENT: Head: Normocephalic and atraumatic. Cardiovascular: Normal rate, regular rhythm, normal heart sounds, intact distal pulses and normal pulses. Pulmonary/Chest: Effort normal and breath sounds normal. Musculoskeletal: Right hand: She exhibits tenderness and laceration. She exhibits normal range of motion, no bony tenderness, normal two-point discrimination, normal capillary refill, no deformity and no swelling. Normal sensation noted. Normal strength noted. Neurological: She is alert and oriented. Skin: Skin is warm and dry. Laceration noted. Psychiatric: Mood and affect normal. EKG Interpretation Lab/SPO2 Interpretation History No past medical history on file. Past Surgical History Procedure Date ??? Hernia repair History Social History ??? Marital Status: Spouse Name: N/A Number of Children: N/A ??? Years of Education: N/A Occupational History ??? Not on file. Social History Main Topics ??? Tobacco Use: Never ??? Alcohol Use: No ??? Drug Use: No ??? Sexually Active: Not on file Other Topics Concern ??? Not on file Social History Narrative ??? No narrative on file Medications Current outpatient prescriptions Medication Sig Dispense Refill ??? raloxifene (EVISTA) 60 MG tablet Take 60 mg by mouth daily. ??? atorvastatin (LIPITOR) 40 MG tablet Take 40 mg by mouth at bedtime. ??? aspirin 81 MG chew tablet Take 81 mg by mouth daily. ??? celecoxib (CELEBREX) 200 MG capsule Take 200 mg by mouth daily. Progress Notes 1245: Patient has a less than 1cm avulsion laceration to the tip of the 5th digit on the right hand. The tip of the nail is gone as well. Mild bleeding. The laceration is superficial. Procedures 1255: Patient's right small finger dressed with surgifoam to stop the bleeding. A pressure dressingwas applied. Patient instructed to keep the dressing on for 24 hours. Medical Decision Making I have reviewed the: Nursing Notes and Vitals. ED Plan/Course: Patient will be discharged home. Instructed to keep dressing on for 24 hours. Then may remove and apply neosporin to the laceration. Diagnosis Encounter Diagnosis Name Primary? Laceration Yes KET BINDER * Taniya Brown - 05/18/2009 12:36 PM CSTBed: 1
Expected date:
Expected time:
Means of arrival:
Comments:
documented in this encounter Miscellaneous Notes * Miscellaneous Scans - Document, Scanned - 05/18/2009 12:00 AM BLANKET BINDER documented in this encounter Plan of Treatment Not on file documented as of this encounter Visit Diagnoses Diagnosis Laceration- Primary Unspecified accident documented in this encounter Care Teams Prosthetist Relationship Specialty Start Date End Date Nopcp, Patient PCP - General 05/18/09 12/03/09 documented as of this encounter
--- OUTSIDE RECORDS SUMMARY | 2024-07-15 03:05 | XMS_ITS | Encounter Summary ---
Author Organization [facility] Health Address [address] [place] [address] Care Team Providers Care Wool Fleece Sorter Name Role Phone Kit Kyle MD Primary Care Provider [phone] Reason for Visit * Radiology Services - Closed Specialty Diagnoses / Procedures Referred By Mecca t Referred To Contact Diagnoses Other screening mammogram Procedures MAMM SCREENING DIGITAL IMAGE BILAT G0202 Kit Kyle MD [address] [place] [address] [address] [place] [address] Referral ID Status Reason Start Date Expiration Date Visits Re quested Visits Authorized [id number] Closed 12/21/2013 06/19/2014 1 1 Encounter Details Date Type Department Care Team (Latest Contact Info) Description 12/21/2013 8:10 AM CDT - 12/21/2013 11:59 PM [facility] Hospital Encounter [facility] [address] [place] [address] Kit Kyle MD [address] [facility] [address] [place] [address] Discharge Disposition: Home or Self [...] on file documented as of this encounter Medications at [...] daily. 04/01/2015 documented as of this encounter Miscellaneous Notes * Miscellaneous Scans - Document, Scanned - 12/22/2013 10:36 PM CDT documented in this encounter Plan of Treatment Not on file documented as of this encounter Procedures Procedure Name Priority Date/Time Associated Diagnosis Comments MAMMO BILAT SCREENING Routine 12/21/2013 8:33 AM CDT Other screening mammogram documented in this encounter Results * MAMM SCREENING DIGITAL IMAGE BILAT G0202 [...] abnormality seen. Kit Kyle MD MAMMO ORDERABLES documented in this encounter Visit Diagnoses Diagnosis Other screening mammogram documented in this encounter Care Teams Wool Fleece Sorter Relationship Specialty Start Date End Date Kit Kyle MD [address] [facility] [address] [place] [address] PCP - General Internal Medicine 12/19/13 12/15/16 documented as of this encounter
--- OUTSIDE RECORDS SUMMARY | 2024-07-15 03:05 | XMS_ITS | Encounter Summary ---
Author Organization [facility] Address [address] [place] [address] Care Team Providers Care Lining Repairer Name Role Phone Kit Kyle MD Primary Care Provider [phone] Reason for Referral * Cardiac - Closed Specialty Diagnoses / Procedures Referred By Mecca alfaro Referred To Contact Diagnoses Chest pain Procedures ECHOCARDIOGRAM STRESS Kit Kyle MD [address] [facility] [address] [place] [address] [facility] [address] [place] [address] Referral ID Status Reason Start Date Expiration Date Visits Re quested Visits Authorized [id number] Closed 12/21/2013 02/04/2014 1 1 * Procedure - Closed Specialty Diagnoses / Procedures Referred By Mecca t Referred To Contact Cardiology Diagnoses Chest pain Procedures EKG 12-LEAD Danielle Bee APRN-PERLA [address] [place] [address] [address] [place] [address] Referral ID Status Reason Start Date Expiration Date Visits Re quested Visits Authorized [id number] Closed 12/20/2013 06/18/2014 1 1 Reason for Visit * Reason Comments Chest Pain left outer breast ar ea x 1 month, possible anxiety Encounter Details Date Type Department Care Team (Late st Contact Info) Description 12/20/2013 1:15 PM CDT Office Visit [facility] - Internal Medicine [address] [place] [address] Danielle Bee, PROMOTIONS ASSISTANT SALES MARKETING-THREAD GRINDER TOOL [address] [facility] [address] [place] [address] Chest pain (Primary Dx) Social History Tobacco Use Types [...] Sign Reading Time Taken Comments Blood Pressure 138/98 12/20/2013 1:09 PM CDT Pulse 72 12/20/2013 1:09 PM CDT Temperature - - Respiratory Rate - - Oxygen Saturation - - Inhaled Oxygen Concentration - - Weight 87.1 kg (192 lb) 12/20/2013 1:09 PM CDT Height 177.8 cm (5' 10) 12/20/2013 1:09 PM CDT Body Mass Index 27.55 12/20/2013 1:09 PM CDT documented in this encounter Progress Notes * Danielle Bee, PROMOTIONS ASSISTANT SALES MARKETING-THREAD GRINDER TOOL - 12/20/2013 1:26 PM CDT SUBJECTIVE: Ernestine Salinas is a 73 y.o. female who comes in today for: Chief Complaint Patient presents with ??? Chest Pain left outer breast area x 1 month, possible anxiety Takes care of who had CVA 6 months ago. Feels overwhelmed. Denies sob, nausea, does have some diaphoresis at times over past 2-3 months. Patient Active Problem List Diagnosis ??? Hyperlipidemia ??? Osteoporosis ??? Left Leg Pain Past Medical History Diagnosis Date ??? Other and unspecified hyperlipidemia Hyperlipidemia ??? Arthritis Current Outpatient Prescriptions on File Prior to Visit Medication Sig Dispense Refill ??? aspirin EC (ECOTRIN) 325 MG tablet Take 1 Tab by mouth 2 times daily with breakfast and dinner. ??? atorvastatin (LIPITOR) 40 MG tablet Take 40 mg by mouth at bedtime. ??? CELEBREX 200 MG CAPS Take 200 mg by mouth daily. ??? OMEGA 3 1000 MG CAPS Take 1000 mg by mouth daily. ??? CALCIUM 600+D PLUS MINERALS PO Take by mouth. ??? VITAMIN B-12 PO Take 100 Units by mouth daily. Past Surgical History Procedure Date ??? Hernia repair, umbilical ??? Cataract removal bilateral ??? Knee arthroscopy left ??? Knee replacement 11/13/2010 LEFT UNI Family History Problem Relation Age of Onset ??? Breast Cancer after age 50 or unknown Sister ??? Cancer Father lung ??? Cancer Sister breast cancer History Social History ??? Marital Status: Spouse Name: N/A Number of Children: N/A ??? 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 Smoking status: Former Smoker -- 0.5 packs/day for 20 years Quit date: 07/12/1992 ??? Smokeless tobacco: Never Used Comment: quit @ 20 yrs ago ??? Alcohol Use: No rare ??? Drug Use: No ??? Sexually Active: Not on file Other Topics Concern ??? Not on file Social History Narrative Merged History Encounter Reviewed with patient and updated lists. OBJECTIVE: BP 138/98 Pulse 72 Wt 87.091 kg (192 lb) BMI 27.55 kg/m2 General appearance: alert, well appearing, and in no distress. CVS exam: normal rate, regular rhythm, normal S1, S2, no murmurs, rubs, clicks or gallops. Chest: clear to auscultation, no wheezes, rales or rhonchi, symmetric air entry. No chest wall tenderness. Breast: No lump, tenderness or masses. HEENT: Atraumatic and normocephalic; Both TMs translucent, landmarks visualized, normal light reflex; PERRLA, EOMI, Sclera and conjunctiva clear; Nares normal. Septum midline. Mucosa normal. No drainage or sinus tenderness.; no mucous membrane abnormalities, normal thyroid, no neck masses Abdominal exam: soft, nontender, nondistended, no masses or organomegaly. Musculoskeletal exam: no joint tenderness, deformity or swelling. Exam of extremities: peripheral pulses normal, no pedal edema, no clubbing or cyanosis Skin exam - normal coloration and turgor, no rashes, no suspicious skin lesions noted. ASSESSMENT: Chest pain PLAN: EKG Stress echo Medication side effects discussed. Pt verbalized understanding. Pt notified to call if persistent, changing, worsening, and/or anxiety provoking symptoms occur. Ptverbalized understanding. * Sandy Valdez - 12/20/2013 1:17 PM CDT Ernestine Vidalesormack is a 73 y.o. female who scored 10 on PH9 form documented in this encounter Plan of Treatment Not on file documented as of this encounter Results * ECHOCARDIOGRAM STRESS (12/28/2013 2:49 PM CDT) [facility] CARDIAC SERVICES - 12/28/2013 2:49 PM CDT Rose Guzman MD ? 12/28/2013 ??2:49 PM ?? [facility] [place] ?[address] ? [address] ? [place], [place]. ??[address] PATIENT INFORMATION: Name: ? Ernestine Vidalesormack : ?1940 Age: ?73 y.o. Height/Weight: ? BP 122/66 Pulse 65 Wt 86.183 kg (190 lb) BMI 26.51 kg/m2 Sex: ? female Meat Soaker: ?Zohaib Lopez ? STRESS ECHO ?WalkingTreadmill / [...] Family History: ?- CAD: ?? Negative Previous NH: ?? Negative Post PTCA: ?? Negative ? [...] MINUTE ? 14 MINUTE ?? DOUBLE PRODUCT: ??79567 15 MINUTE ?? METS: ??4.6 18 MINUTE [...] noted in the apex Poor functional capacity Rsoe Guzman MD, FACC ?Electronically signed: 12/28/2013 Procedure Note Rose Guzman MD - 12/28/2013 1:45 PM CDT [facility] [address] [address] PATIENT INFORMATION: Name: Ernestine Salinas : 1940 Age: 73 y.o. Height/Weight: BP 122/66 Pulse 65 Wt 86.183 kg (190 lb) BMI26.51 kg/m2 Sex: female Meat Soaker: Zohaib Lopez STRESS ECHO WalkingTreadmill / BruceProtocol Date: 12/28/2013 REASON FOR PERFORMING TEST: Chest Pain RISK FACTORS: Hypertension: Negative Hyper lipids: Negative Diabetes: Negative Smoking History: History Smoking status ? ? Former Smoker -- 0.5 packs/day for 20 years ? ? Quit date: 07/12/1992 Smokeless tobacco ? ? Never Used Comment: quit @ 20 yrs ago Family History: - CAD: Negative Previous NH: Negative Post PTCA: Negative Resting EKG: SR Predicted Heart Rate: 100% = 149 85% = 126 BLOOD PRESSURE HEART RATE COMMENTS / SYMPTOMS PRETEST UPRIGHT PRETEST SUPINE STRESS 1 MINUTE 2 MINUTE 3 MINUTE 176/84 122 4 MINUTE 5 MINUTE 6 MINUTE 7 MINUTE 8 MINUTE 9 MINUTE 10 MINUTE 11 MINUTE 12 MINUTE 13 MINUTE 14 MINUTE DOUBLE PRODUCT: 20941 15 MINUTE METS: 4.6 18 MINUTE TEST TERMINATED @ 3:01 MINUTES WITH HEART RATE OF 127 REASON FORTERMINATION: shortness of breath 85% ACHIEVED RECOVERY BLOOD PRESSURE HEART RATE COMMENTS / SYMPTOMS IMMEDIATE 1 MINUTE 156/94 72 mild chest discomfort 2 MINUTE 3 MINUTE 136/84 75 4 MINUTE 5 MINUTE 6 MINUTE 131/83 79 7 MINUTE 8 MINUTE 9 MINUTE RESULTS: Roes Guzman MD, FACC Electronically signed: 12/28/2013 STRESS [...] Guzman MD, FACC Electronically signed:12/28/2013 Danielle Bee APRN-THREAD GRINDER TOOL ECHO ORDERABLES Performing Organization Address [facility] Co de Phone Number [facility] * EKG 12-LEAD (12/20/2013) Danielle Bee PROMOTIONS ASSISTANT SALES MARKETING-[facility] ECG ORDERABLES Performing Organization Address [facility] Co de Phone Number [facility] RESULT SCAN documented in this encounter Visit Diagnoses Diagnosis Chest pain- Primary Chest pain documented in this encounter Care Teams Lining Repairer Relationship Specialty Start Date End Date Kit Kyle MD [address] [facility] [address] [place] [address] PCP - General Internal Medicine 12/19/13 12/15/16 documented as of this encounter
--- OUTSIDE RECORDS SUMMARY | 2024-07-15 03:05 | XMS_ITS | Encounter Summary ---
Author Organization [facility] Health Address [address] [place] [address] Care Team Providers Care Textile Artist Name Role Phone Kit Kyle MD Primary Care Provider [phone] Encounter Details Date Type Department Care Team (Late st Contact Info) Description 12/22/2013 Orders Only [facility] - Internal Medicine [address] [place] [address] Danielle Bee, DIRECTOR OF HEALTH CARE MARKETING-GEOGRAPHIC INFORMATION SYSTEMS MANAGER [address] [address] Chest pain Social History Tobacco Use Types Packs/Day Years [...] on file documented as of this encounter Plan of Treatment Not on file documented as of this encounter Procedures Procedure Name Priority Date/Time Associated Diagnosis Comments EKG 12-LEAD Routine 12/20/2013 Chest pain documented in this encounter Results * EKG 12-LEAD (12/20/2013) Danielle Bee DIRECTOR OF HEALTH CARE MARKETING-GEOGRAPHIC INFORMATION SYSTEMS MANAGER ECG ORDERABLES [facility] RESULT SCAN documented in this encounter Visit Diagnoses Diagnosis Chest pain documented in this encounter Care Teams Textile Artist Relationship Specialty Start Date End Date Kit Kyle MD [address] [facility] [address] [place] [address] PCP - General Internal Medicine 12/19/13 12/15/16 documented as of this encounter
--- OUTSIDE RECORDS SUMMARY | 2024-07-15 03:05 | XMS_ITS | Encounter Summary ---
Author Organization [facility] Address [address] [facility] [place] [address] Care Team Providers Care Nut Processing Supervisor Name Role Phone Kit Kyle MD Primary Care Provider [phone] Reason for Visit * Auth/Cert - Closed Specialty Diagnoses / Procedures Referred By Mecca alfaro Referred To Contact Referral ID Status Reason Start Date Expiration Date Visits Re quested Visits Authorized [id number] Closed 1 1 Encounter Details Date Type Department Care Team (Latest Contact Info) Description 01/05/2014 11:52 AM CDT - 01/05/2014 4:30 PM CDT Hospital Encounter [facility] CARDIAC ASSOCIATE PROFESSOR OF AUTOMATION [address] [place] [address] Rose Guzman MD [address] [facility] [address] [place] [address] Cardiac Catheterization Discharge Disposition: Home or Self Care Social [...] Sign Reading Time Taken Comments Blood Pressure 122/78 01/05/2014 4:00 PM CDT Pulse 64 01/05/2014 4:00 PM CDT Temperature 36.1 ??C (97 ??F) 01/05/2014 12:17 PM CDT Respiratory Rate 18 01/05/2014 4:00 PM CDT Oxygen Saturation 99% 01/05/2014 4:00 PM CDT Inhaled Oxygen Concentration - - Weight 86.2 kg (190 lb) 01/05/2014 12:17 PM CDT Height 180.3 cm (5' 11) 01/05/2014 12:17 PM CDT Body Mass Index 26.5 01/05/2014 12:17 PM CDT documented in this encounter Functional [...] as of this encounter Discharge Instructions * Discharge Instructions* Lorelei Sanchez RN - 01/05/2014 2:30 PM CDT Moderate Sedation WHAT YOU SHOULD KNOW: ?? Moderate sedation can be used during procedures or surgeries to help you feel relaxed and calm. Moderate sedation used to be called conscious sedation. With moderate sedation, you stay awake during the procedure or surgery, and your breathing and heart rate do not change. You are able to follow commands and answer questions during the procedure. Procedural sedation is when medicine is given tomake you better able to cope with procedures that may be uncomfortable. ?? Moderate sedation can be used for surgeries such as collecting tissue or fluid samples, or repairing a broken bone. It can be used for cleaning and repairing wounds, or for certain kinds of brain surgery. It can be used for procedures such as a bronchoscopy, colonoscopy, or thoracoscopy. It may also be used for certain heart treatments or dental work. Having moderate sedation will help decrease your anxiety (worry) about your procedure. It will also keep you comfortable and calm while havingyour procedure. INSTRUCTIONS: Take your medicine as directed: Call your primary healthcare provider if you think your medicine isnot helping or if you have side effects. Tell him if you are allergic to any medicine. Keep a list of the medicines, vitamins, and herbs you take. Include the amounts, and when and why you take them.Bring the list or the pill bottles to follow-up visits. Carry your medicine list with you in case of an emergency. Ask for information about where and when to go for follow-up visits: For continuing care, treatments, or home services, ask for more information. Medicines given for moderate sedation: Medicines that are given for moderate sedation may be given as a pill, shot, or through your anus. Medicine may also be breathed into your lungs, or given through an intravenous (IV) tube. An IV is a tube that is placed in your vein. You may be given one or more of the following medicines: ?? Anesthesia: This is medicine that will help you feel more comfortable during surgery. ?? Antianxiety medicine: This medicine may be given to decrease anxiety and help you feel calm and relaxed. ?? Narcotics: This group of medicines may be given for pain during or after a procedure. ?? Sedative: This medicine is given to help you stay calm and relaxed. Risks of moderate sedation: ?? The medicine used for moderate sedation may cause you to get a headache or an upset stomach. Themedicine might make forget things that have happened recently. The medicine may make your skin itchy, your eyes water, or they may increase your saliva (spit). Having too little medicine will make you uneasy and feel pain during the procedure. You may also feel like moving when you need to hold still. If the medicine does not wear off in a certain time, you may be given medicine to help you become more alert. ?? If you get more medicine than you need, you may go into a deeper level of sedation. With deep sedation, you may need help breathing, and your blood pressure may decrease. Ask caregivers for more information about deep sedation. If you have heart or lung disease, or you have a head injury, you are at a higher risk having problems. These problems can happen during or after you get moderate sedation. Older adults, people who use illegal (street) drugs, or those who drink too much alcohol too often are at a greater risk of having problems. Alcohol is found in adult drinks such as beer, wine and whiskey. Ask your caregiver if you have questions or concerns about having moderate sedation. What to do when you go home after having moderate sedation: ?? Do not drive a car or use heavy equipment. An adult should drive you home and stay with you after you have had moderate sedation. ?? Follow your caregiver's advice about making changes to your diet, activity, or medicine. Avoid hard exercise right after having moderate sedation. Do not drink alcohol, such as beer and wine. Do not make important decisions for 24 hours (one day) after having moderate sedation. ?? Take antinausea medicine as ordered. This medicine may be given to calm your stomach and help stop you from throwing up. Pain medicine may upset your stomach and make you feel like vomiting. To help prevent this, pain medicine and anti- nausea medicine are often given at the same time. ?? Use ice chips. You may suck or chew small pieces of ice to if you feel like you need to cough. ?? Use lip balm. Put lip balm on your lips to keep them moist, and help prevent them from chapping. CONTACT A CAREGIVER IF: ?? You have a fever. ?? You have a cough or headache. ?? You have an upset stomach or feel like throwing up. ?? You have questions or concerns about your condition, medicine, or care. SEEK CARE IMMEDIATELY IF: ?? You have sudden trouble breathing. ?? You have a very bad headache. Copyright ?? 2012. [employer]. All rights reserved. Information is for End User's use only andmay not be sold, redistributed or otherwise used for commercial purposes. The above information is an kennel aide only. It is not intended as medical advice for individual conditions or treatments. Talk to your doctor, nurse or pharmacist before following any medical regimen to see if it is safe and effective for you. documented in this encounter Medications at Time [...] of this encounter Progress Notes * Juanis Gallardo RN - 01/05/2014 4:30 PM CDT Pt ready to go home. She continues to have a headache and did request Tylenol prior to leaving. Pt stated that she thought the pain would go away once she ate, but it did not. Tylenol given. * Rose Guzman MD - 01/05/2014 1:17 PM CDT Cath, preliminary NL cors NL LV EBL<20 cc Full report to follow documented in this encounter H&P Notes * Rose Guzman MD - 01/05/2014 12:25 PM CDT CARDIAC ASSOCIATE PROFESSOR OF AUTOMATION INDICATIONS PRE PROCEDURE H&P and AUC TOOL CP, several weeks, pressure like and radiation to the LUE, lasting minutes at a time Mild SOB +fatigue No orthopnea or PND No syncope 14 point ROS -ve per hpi FHX/SHX, -nc to illness General appearance: alert, well appearing, and in no distress. CVS exam: normal rate, regular rhythm, normal S1, S2, . Chest: clear to auscultation. Abdominal exam: soft Exam of extremities: tr edema Neurological exam reveals alert, oriented, normal speech, no focal findings or movement disorder noted. SHEENT exam - supple, no significant adenopathy. No lesion, rashes, bruits, mucous membranes moist PERRLA Nl allens B Heart Failure: NO Stress Test w/in prior 6 months: Stress Echo, Result: Positive, Risk/Extent of Ischemia: Intermediate Home Med List: Prescriptions prior to admission Medication Sig Dispense Refill ??? aspirin (ASPIRIN) 81 MG tablet Take 81 mg by mouth once daily. ??? gabapentin (NEURONTIN) 300 MG capsule Take 600 mg by mouth at bedtime. ??? atorvastatin (LIPITOR) 40 MG tablet Take 40 mg by mouth at bedtime. ??? CELEBREX 200 MG CAPS Take 200 mg by mouth daily. ??? OMEGA 3 1000 MG CAPS Take 1000 mg by mouth daily. ??? CALCIUM 600+D PLUS MINERALS PO Take by mouth. ??? VITAMIN B-12 PO Take 100 Units by mouth daily. Anti-Anginal Medication within 2 Weeks: No Past Medical & Surgical History Illnesses: Past Medical History Diagnosis Date ??? Other and unspecified hyperlipidemia Hyperlipidemia ??? Arthritis Past Surgical History Procedure Laterality Date ??? Hernia repair, umbilical ??? Cataract removal bilateral ??? Knee arthroscopy left ??? Knee replacement 11/13/2010 LEFT UNI Allergies: Review of patient's allergies indicates no known allergies. This patient's prior H&P was reviewed, the patient was examined, and no change has occurred in the patient's condition since the prior H&P was completed. Consent: Risk, benefits and alternatives were discussed with patient and consent for procedure was obtained. Airway: Mallampati III (soft palate, base of uvula visible) ASA Class: {Class 3 - SEVERE SYSTEMIC DISEASE, DEFINITE FUNCTIONAL LIMITATIONS. Impression/Cardiac Catheterization Indication: Unstable Angina Anginal Class: CCS III Procedure Acuity Status: Elective Planned Course of Treatment/Procedure: Coronary angiography, Left Heart Cath and Left Ventriculography Sedation: Fentanyl and Versed Expected Level: Minimal anxiolysis Indication: Sedation is required to allow for performance of procedure. Monitoring: heart rate, assembler bicycle, continuous pulse oximetry, frequent blood pressure checks,level of consciousness, IV access, constant attendance by RN until patient recovered, and emergencyairway equipment available. Based on the above criteria, I believe that patient meets clinical indications for a cardiac catheterization. CP Cardiac catheterization-with the pt understanding the risks associated with the procedure includingMI, CVA , renal failure and limb loss Rose Guzman MD 01/05/2014 12:25 PM documented in this encounter Procedure Notes * Rose Guzman MD - 01/05/2014 2:43 PM CDTAssociated Order(s): CARDIAC CATH CONSULT [facility] CARDIAC CATHETERIZATION LABORATORY PATIENT NAME: YOANDY SALINAS MR#: [id number] ROOM#: [id number] CSN: [id number] PHYSICIAN: Rose Guzman M.D. SEX: F PHYS: Rose Guzman M.D. : 1940 AGE: 73 DATE: 01/05/2014 CASE #: CARDIAC CATHETERIZATION REPORT HISTORY: The patient is a 73-year-old female with a history of chest pain and an abnormal stress test. PHYSICAL EXAM: GENERAL: She is alert and oriented x3. CARDIAC EXAM: Reveals normal S1, S2. LUNGS: Clear. ABDOMEN: Soft. VASCULAR: She has a normal Mendez's test bilaterally. VASCULAR ACCESS: A 6-Pakistani sheath in the left radial artery. MEDICATIONS: A cocktail of 3 mL of lidocaine, 3000 units of heparin, and 300 mcg of nitroglycerin were given through the sheath. ANGIOGRAPHIC CATHETERS USED: A 5-Pakistani JL-3.5, JR-3.5, and pigtail. HEMODYNAMICS: Ascending aortic pressure was 135/70. Left ventricular pressure was 135/14. LEFT VENTRICULOGRAM: Left ventriculogram obtained in the standard AZUL projection revealed normal wall motion, estimated ejection fraction of 60% without significant mitral regurgitation. SELECTIVE CORONARY ARTERIOGRAPHY: The left main coronary artery and its branches were angiographically normal. There was a moderate-sized diagonal vessel. The left circumflex artery and its branches were angiographically normal. The right coronary artery was dominant and angiographically normal. The patient tolerated the procedure well. The sheath was pulled and a TR band was placed over the puncture site. FINAL INTERPRETATION: 1. Angiographically normal coronary arteries. 2. Normal left ventricular function. AZ/MODL #: [id number] documented in this encounter Plan of Treatment Not on file documented as of this encounter Procedures Procedure Name Priority Date/Time Associated Diagnosis Comments CARDIAC PROCEDURE ORDER 01/08/2014 9:41 PM CDT CARDIAC CATH CONSULT Routine 01/05/2014 12:00 PM CDT documented in this encounter Results * CARDIAC PROCEDURE ORDER (01/08/2014 9:41 PM CDT) Provider Unknown CARDIAC SERVICES ORD ERABLES * CARDIAC CATH CONSULT (for Epic Reporting) (01/05/2014 12:00 PM CDT) 01/05/2014 12:0 0 PM CDT Narrative Transcriptions Rose Guzman MD - 01/05/2014 2:43 PM CDT [facility] CARDIAC CATHETERIZATION LABORATORY PATIENT NAME: YOANDY SALINAS MR#: [id number] [id number] CSN: [id number] PHYSICIAN: Rose Guzman M.D. SEX: F PHYS: [...] normal Mendez's test bilaterally. VASCULAR ACCESS: A 6-Pakistani sheath in the left radial artery. MEDICATIONS: A cocktail of 3 mL of lidocaine, 3000 units of heparin, bvz375 mcg of nitroglycerin were given through the sheath. ANGIOGRAPHIC CATHETERS USED: A 5-Pakistani JL-3.5, JR-3.5, and pigtail. HEMODYNAMICS: Ascending aortic [...] arteries. 2. Normal left ventricular function. AZ/MODL #:[id number] Rose Guzman MD ECHO ORDERABLES [facility] CARDIAC SERVICES documented in this encounter Visit Diagnoses Not on filedocumented in this encounter Administered Medications Inactive Administered Medications - up to 3 most recent administrations Medication Order MAR Action Action Date Dose Rate Site 0.9% NaCl infusion at 75 mL/hr, Intravenous, CONTINUOUS, Starting on Wed01/05/14 at 1245, Until Wed01/05/14 at 1944, Initiate fluids before cardiac label pinker procedure scheduled time., Pre-procedure (CATH) $ New Bag/Syringe 01/05/2014 12:32 PM CDT 75 mL/hr 0.9% NaCl infusion at 250 mL/hr, Intravenous, CONTINUOUS, Starting on Wed01/05/14 at 1400, Until Wed01/05/14 at 1559 $ New Bag/Syringe 01/05/2014 3:24 PM CDT 250 mL/hr acetaminophen (TYLENOL) tablet 650 mg 650 mg, Oral, EVERY 4 HOURS PRN, Mild Pain, Starting on Wed01/05/14 at 1319, Until Wed01/05/14 at 1944, Maximum allowable Acetaminophen amount = 4 Grams (4000 mg) / 24 hours. $ Given 01/05/2014 4:30 PM CDT 325 mg fentaNYL (SUBLIMAZE) injection 10-50 mcg 10-50 mcg, Intravenous, INTRA-PROCEDURE MULTIPLE, Starting on Wed01/05/14 at 1204, Until Wed01/05/14 at 1944, Titrate for sedation., Pre-procedure (CATH) $ Given 01/05/2014 2:06 PM CDT 50 mcg $ Given 01/05/2014 1:42 PM CDT 50 mcg iohexol (OMNIPAQUE 350) contrast Intra-arterial, CONTRAST ONCE, Starting on Wed01/05/14 at 1204, Until Wed01/05/14 at 1944, Pre-procedure (CATH) $ Given 01/05/2014 2:20 PM CDT 100 mL midazolam (VERSED) injection 0.5-4 mg 0.5-4 mg, Intravenous, INTRA-PROCEDURE MULTIPLE, Starting on Wed01/05/14 at 1204, Until Wed01/05/14 at 1944, Titrate by 1 mg every 1-2 minutes until desired sedation is achieved., Pre-procedure (CATH) $ Given 01/05/2014 2:06 PM CDT 1 mg $ Given 01/05/2014 1:42 PM CDT 2 mg documented in this encounter Active and Recently Administered Medications Times are shown in CDT. Scheduled Medication Order 01/03/2014 01/04/2014 01/05/2014 fentaNYL (SUBLIMAZE) injection 10-50 mcg (CANCELED) 10-50 mcg, Intravenous, INTRA-PROCEDURE MULTIPLE, Starting on Wed01/05/14 at 1204, Until Wed01/05/14 at 1944, Titrate for sedation., Pre-procedure (CATH) 1342 ($ Given - Prov ider: Lorelei Sanchez RN)1406 ($ Given - Provider: Lorelei Sanchez RN) iohexol (OMNIPAQUE 350) contrast (CANCELED) Intra-arterial, CONTRAST ONCE, Starting on Wed01/05/14 at 1204, Until Wed01/05/14 at 1944, Pre-procedure (CATH) 1420 ($ Given - Prov ider: Lorelei Sanchez RN) midazolam (VERSED) injection 0.5-4 mg (CANCELED) 0.5-4 mg, Intravenous, INTRA-PROCEDURE MULTIPLE, Starting on Wed01/05/14 at 1204, Until Wed01/05/14 at 1944, Titrate by 1 mg every 1-2 minutes until desired sedation is achieved., Pre-procedure (CATH) 1342 ($ Given - Prov ider: Lorelei Sanchez RN)1406 ($ Given - Provider: Lorelei Sanchez RN) Continuous Medication Order 01/03/2014 01/04/2014 01/05/2014 0.9% NaCl infusion (CANCELED) at 75 mL/hr, Intravenous, CONTINUOUS, Starting on Wed01/05/14 at 1245, Until Wed01/05/14 at 1944, Initiate fluids before cardiac label pinker procedure scheduled time., Pre-procedure (CATH) 1232 ($ New Bag/Syri nge - Provider: Kathy Olmos RN) 0.9% NaCl infusion () at 250 mL/hr, Intravenous, CONTINUOUS, Starting on Wed01/05/14 at 1400, Until Wed01/05/14 at 1559 1524 ($ New Bag/Syri nge - Provider: Juanis Acharya RN) PRN Medication Order 01/03/2014 01/04/2014 01/05/2014 acetaminophen (TYLENOL) tablet 650 mg (CANCELED) 650 mg, Oral, EVERY 4 HOURS PRN, Mild Pain, Starting on Wed01/05/14 at 1319, Until Wed01/05/14 at 1944, Maximum allowable Acetaminophen amount = 4 Grams (4000 mg) / 24 hours. 1630 ($ Given - Prov ider: Lorelei Sargent RN) documented in this encounter Care Teams Nut Processing Supervisor Relationship Specialty Start Date End Date Kit Kyle MD [address] [place] [id number] PCP - General Internal Medicine 12/19/13 12/15/16 documented as of this encounter
--- OUTSIDE RECORDS SUMMARY | 2024-07-15 03:05 | XMS_ITS | Encounter Summary ---
Author Organization [facility] Address [address] [place] [address] Care Team Providers Care Pad Extraction Tender Name Role Phone Nopcp, Patient Primary Care Provider Unavailabl e Reason for Visit * Reason Onset Date Comments General 07/22/2009 Encounter Details Date Type Department Care Team (Late st Contact Info) Description 07/22/2009 Telephone [facility] Medical [facility] - Family Medicine [address] [place] [address] Hemanth Vital MD [address] [place] [address] [address] [place] [address] General Social History Tobacco Use Types Packs/Day Years Used Date Smoking Tobacco: Never Cigarettes Qu it: 07/12/1992 Alcohol Use Standard Drinks/Week Comments No 0 (1 standard drink = 0.6 oz pur e alcohol) rare Sex and Gender Information Value Date Recorded Sex Assigned at Not on file Gender Identity Not on file Sexual Orientation Not on file documented as of this encounter Miscellaneous Notes * Telephone Encounter - Sowmya Thomas - 07/22/2009 9:43 AM CST Pt Notified . MOGRAPH SHOOTER * Telephone Encounter - Hemanth Vital MD - 07/22/2009 9:27 AM SEISMOGRAPH SHOOTER I have not seen her since 03/19 per epic so is she planning to switch to me for her primary or cont to see the doctor in [place] (it looks like she lives in [place]). If she is planning to have me be her PCP then I would need to see her for eval of these things. MOGRAPH SHOOTER * Telephone Encounter - Sowmya Thomas - 07/22/2009 9:20 AM CST Pt called and said that her old Dr in [place] has ordred a mamm for screening and a mri of the left Knee for knee pain and a Chest xray , for a constant dry cough . Wants to know if you can order these so she can get these done and have copies sent back to her Dr in [place],please call back and let know MOGRAPH SHOOTER documented in this encounter Plan of Treatment Not on file documented as of this encounter Visit Diagnoses Not on filedocumented in this encounter Care Teams Pad Extraction Tender Relationship Specialty Start Date End Date Nopcp, Patient PCP - General 05/18/09 12/03/09 documented as of this encounter
--- OUTSIDE RECORDS SUMMARY | 2024-07-15 03:05 | XMS_ITS | Encounter Summary ---
Author Organization [facility] Address [address] [place] [address] Care Team Providers Care Under Trimmer Name Role Phone Kit Kyle MD Primary Care Provider [phone] Reason for Visit * Reason Comments Pain Foot left foot, thinks it is broken, happened this morning Encounter Details Date Type Department Care Team (Late st Contact Info) Description 01/22/2014 3:00 PM CDT Office Visit [facility] Medical [facility] - Internal Medicine [address] [place] [address] Randi Sotelo, STABLE HAND-RESIDENT IN DIAGNOSTIC RADIOLOGY [address] [facility] [address] [place] [address] Foot pain, left (Primary Dx) Social History Tobacco Use Types [...] Sign Reading Time Taken Comments Blood Pressure 138/90 01/22/2014 1:05 PM CDT Pulse 64 01/22/2014 1:05 PM CDT Temperature - - Respiratory Rate - - Oxygen Saturation - - Inhaled Oxygen Concentration - - Weight 86.2 kg (190 lb) 01/22/2014 1:05 PM CDT Height 180.3 cm (5' 11) 01/22/2014 1:05 PM CDT Body Mass Index 26.5 01/22/2014 1:05 PM CDT documented in this encounter Functional [...] Progress Notes * Randi Sotelo APRN-CNP - 01/22/2014 1:26 PM CDT SUBJECTIVE: Ernestine Salinas is a 73 y.o. female who sustained a left foot injury 3 hour(s) ago. Mechanism ofinjury: fell over lawnmower. Immediate symptoms: immediate pain. Symptoms have been acute since that time. Prior history of related problems: no prior problems with this area in the past. OBJECTIVE: Vital signs as noted above. Appearance: alert, well appearing, and in no distress. Foot/ankle exam: soft tissue swelling and tenderness over the base of 5th metatarsal. X-ray: ordered, but results not yet available. ASSESSMENT: Foot injury PLAN: rest the injured area as much as practical, apply ice packs, X-Ray ordered See orders for this visit as documented in the electronic medical record. documented in this encounter Plan of Treatment Not on file documented as of this encounter Results * XR FOOT 2 [...] neck of the fifth metatarsal. Randi Sotelo STABLE HAND-RESIDENT IN DIAGNOSTIC RADIOLOGY DIAGNOSTIC IMAG ING ORDERABLES documented in this encounter Visit Diagnoses Diagnosis Foot pain, left- Primary Pain in limb Foot pain, left Pain in limb documented in this encounter Care Teams Under Trimmer Relationship Specialty Start Date End Date Kit Kyle MD [address] [place] [phone] PCP - General Internal Medicine 12/19/13 12/15/16 documented as of this encounter
--- OUTSIDE RECORDS SUMMARY | 2024-07-15 03:05 | XMS_ITS | Encounter Summary ---
Author Organization [facility] Address [address] [place] [address] Care Team Providers Care Pathology Laboratory Aide Name Role Phone Unknown, Provider Primary Care Provider Unavaila ble Encounter Details Date Type Department Care Team (Latest Contact Info) Description 11/13/2010 3:35 PM CDT - 11/14/2010 1:03 PM CDT Hospital Encounter [id number] [place] [id number] [place] [address] [id number] Medical Outpatient Discharge Disposition: Home Health Care Svc Social History Tobacco Use Types Packs/Day Years [...] Sign Reading Time Taken Comments Blood Pressure 110/66 11/14/2010 10:45 AM CDT Pulse 75 11/14/2010 10:45 AM CDT Temperature 36.8 ??C (98.3 ??F) 11/14/2010 10:45 AM C DT Respiratory Rate 18 11/14/2010 10:45 AM CDT Oxygen Saturation 94% 11/14/2010 10:45 AM CDT Inhaled Oxygen Concentration - - Weight 95.3 kg (210 lb) 11/12/2010 3:26 PM CDT Height 177.8 cm (5' 10) 11/12/2010 3:26 PM CDT Body Mass Index 30.13 11/12/2010 3:26 PM CDT documented in this encounter Discharge Summaries * Lorelei Heck RN - 11/14/2010 11:30 AM CDT Physician Discharge Summary Patient Name: Yoandy Salinas Date of : 1940 Admit date: 11/13/2010 Discharge date:11/14/2010 Admitting Physician: Shawna Flores MD Attending Physician: Shawna Folres MD Discharge Physician: Lorelei Heck RN Admission Diagnosis: DJD knee Past Medical History Past Medical History Diagnosis Date ??? Other and unspecified hyperlipidemia Hyperlipidemia ??? Arthritis Resolved Diagnoses None found. Discharge Diagnoses DJD knee Diagnostic Studies See hospital course Treatments See hospital course Procedures See hospital course Consults Dr Palumbo Hospital Course Good progress with PT. Pain controlled with oral medications. Incisional area c/d/i. Condition at discharge: good Disposition: Home, Home health Code Status At Discharge Full Code Patient Instructions Current Discharge Medication List START taking these medications hydrocodone-acetaminophen (NORCO) 5-325 MG tablet Take 1-2 Tabs by mouth every 6 hours as needed for Pain. Called to [facility] [phone] aspirin EC (ECOTRIN) 325 MG tablet Take 1 Tab by mouth 2 times daily with breakfast and dinner. CONTINUE these medications which have NOT CHANGED Cholecalciferol (VITAMIN D3) 5000 UNIT CAPS Take by mouth daily. Coenzyme Q10 (COQ10) 100 MG CAPS Take by mouth daily. atorvastatin (LIPITOR) 40 MG tablet Take 40 mg by mouth at bedtime. EVISTA 60 MG TABS Take 60 mg by mouth at bedtime. CELEBREX 200 MG CAPS Take 200 mg by mouth daily. OMEGA 3 1000 MG CAPS Take 1000 mg by mouth daily. CALCIUM 600+D PLUS MINERALS PO Take by mouth. VITAMIN B-12 PO Take 100 Units by mouth daily. Discharge Procedure Orders REGULAR DIET AT HOME LIMIT ALCOHOL CONSUMPTION WHILE TAKING PAIN MEDICATION AMBULATE WITH WALKER WEIGHT BEARING TOLERATED AVOID STRENUOUS ACTIVITY DO NOT DRIVE UNTIL SEEN BY PHYSICIAN Order Specific Question Answer Comments For how long? Until follow up appointment CONTINUE SHIRIN HOSE USE TILL SEEN BY PHYSICIAN CONTINUE EXERCISES AND PRECAUTIONS INSTRUCTED BY HOSPITAL THERAPIST KEEP DRESSING DRY WASH HANDS THOROUGHLY WITH SOAP AND WATER BEFORE CHANGING DRESSING CHANGE DRESSING DAILY AND NEEDED CLEANSE INCISION WITH SAF CLENS AND APPLY A DRY DRESSING MAY SHOWER WHEN WOUND HAS NO DRAINAGE FOR 24 HOURS OR MORE .. NO tub baths. ROSI TO BE REMOVED [place] to be removed 14 days post op 11/27/10 CALL PHYSICIAN FOR EXCESSIVE BLEEDING OR REDNESS AT SURGICAL SITE CALL PHYSICIAN FOR FEVER OVER 101.5 CALL PHYSICIAN FOR INCREASING PAIN OR TENDERNESS CALL 911 FOR CHEST PAIN OR SHORTNESS OF BREATH PATIENT TO CALL PHYSICIAN FOR APPOINTMENT Follow up with Dr Flores 3 weeks post op A FOLLOW UP APPOINTMENT HAS ALREADY BEEN ARRANGED A follow up appointment has already been arranged for this patient. IP CONSULT TO [facility] [phone] Order Specific Question Answer Comments REASON FOR CONSULT? post op total knee replacement Discharge time: greater than 30 minutes. CC: none documented in this encounter Discharge Instructions * Discharge Instructions* Ashlee Orosco RN - 11/14/2010 12:11 PM CDT If you have any questions regarding your home medications/prescriptions, please contact your primary physician. Discharge Procedure Orders REGULAR DIET AT HOME LIMIT ALCOHOL CONSUMPTION WHILE TAKING PAIN MEDICATION AMBULATE WITH WALKER WEIGHT BEARING TOLERATED AVOID STRENUOUS ACTIVITY DO NOT DRIVE UNTIL SEEN BY PHYSICIAN Order Specific Question Answer Comments For how long? Until follow up appointment CONTINUE SHIRIN HOSE USE TILL SEEN BY PHYSICIAN CONTINUE EXERCISES AND PRECAUTIONS INSTRUCTED BY HOSPITAL THERAPIST KEEP DRESSING DRY WASH HANDS THOROUGHLY WITH SOAP AND WATER BEFORE CHANGING DRESSING CHANGE DRESSING DAILY AND NEEDED CLEANSE INCISION WITH SAF CLENS AND APPLY A DRY DRESSING MAY SHOWER WHEN WOUND HAS NO DRAINAGE FOR 24 HOURS OR MORE .. NO tub baths. ROSI TO BE REMOVED Rosi to be removed 14 days post op 11/27/10 CALL PHYSICIAN FOR EXCESSIVE BLEEDING OR REDNESS AT SURGICAL SITE CALL PHYSICIAN FOR FEVER OVER 101.5 CALL PHYSICIAN FOR INCREASING PAIN OR TENDERNESS CALL 911 FOR CHEST PAIN OR SHORTNESS OF BREATH PATIENT TO CALL PHYSICIAN FOR APPOINTMENT Follow up with Dr Flores 3 weeks post op A FOLLOW UP APPOINTMENT HAS ALREADY BEEN ARRANGED A follow up appointment has already been arranged for this patient. IP CONSULT TO [facility] [phone] Order Specific Question Answer Comments REASON FOR CONSULT? post op total knee replacement Please avoid smoking and second hand smoke. The following belongings have been returned to you: Clothing: Yes, With Patient: Shirt;Pants;Jacket/Coat;Undergarments, Secured: Shirt;Pants;Footwear;Undergarments Jewelry: None Electronic Items: None Dentures/Retainers: None Visual Aids: Yes, Glasses: Secured Hearing Aids: None Equipment with Patient: None, Equipment At Home: Walker-2 Wheeled Home Medications: None Miscellaneous Items: None Monetary Items: None The discharge and medication instructions have been reviewed with me and my questions have been answered. I have received a copy of the discharge instructions. 11/14/2010 * Discharge Instructions* Document, Scanned - 11/15/2010 7:09 AM CDT documented in this encounter Medications at [...] Take 200 mg by mouth daily. 10/24/2014 Cholecalciferol (VITAMIN D3) 5000 UNIT CAPS Take by mouth daily. 014 Coenzyme Q10 (COQ10) 100 MG CAPS Take by mouth daily. 014 EVISTA 60 MG TABS Take 60 mg by mouth at bedtime. 11/13/2010 12/20/2013 hydrocodone-acetaminoph en (NORCO) 5-325 MG tablet Take 1-2 Tabs by mouth every 6 hours as needed for Pain. Called to [facility] [phone] 11/14/2010 12/20/2013 OMEGA 3 1000 MG CAPS Take 1000 mg by mouth daily. 04/01/2015 VITAMIN B-12 PO Take 100 Units by mouth daily. 04/01/2015 documented as of this encounter Progress Notes * Lorelei Heck RN - 11/14/2010 11:29 AM CDT Ortho Progress Note 11/14/2010 Awake and alert Afebrile Dressing knee c/d/i Pain controlled. Good progress with PT Discharge home F/U in office 3 weeks * Fransisca Mcgowan, PT - 11/14/2010 9:57 AM CDT Physical therapy assessment: Problem list: Decreased strength, decreased balance, decreased ROM Functional limitations: Decreased independence with ambulation/transfers, decreased safety with functional mobility Rationale for therapy: Patient will benefit from skilled PT to address the above issues. Patient/family stated goal: to keep up with my significant other Physical Therapy Evaluation Summary for today: Sit to Stand: Contact Guard Assist Distance Ambulated: 110 FEET Ambulation: Assistive Device: Gait Belt;Walker-2 Wheeled Ambulation: Level of Assistance: Contact Guard Assist Performed 2 steps with HR CGA, issued TKA folder. Performed 5-10 reps TKA HEP, marked exercise to perform at home. Please refer to Filed Flowsheet PT Evaluation for further details. Patient left in reach of call light and phone. Recommendations: Cont PT with home health care. * Amaris Doll - 11/14/2010 9:21 AM CDT CM screen completed,welcome letter and provider list given to patient/family at bedside. Discussed POC/LOS/DC needs. POD#1,therapy to begin,will follow progress Pt plans to DC home today with [facility] to follow. Name/# of CM/SW in room for patient/family to call with concerns. [facility] notified to order DME [phone] for patient.needs w/w PN/Flu addressed. Call Mckenzie @[phone] Or page me [phone] with concerns. * Larisa Ferrara NP - 11/14/2010 8:01 AM CDT POST-OP ANESTHESIA EVALUATION Yoandy Salinas is a 70 y.o. female The patient is sufficiently recovered from the acute administration of the anesthesia so as to participate in the evaluation or neurologic status has returned to pre-operative or expected level of consciousness. The post-anesthesia assessment was completed based upon the elements below. The patient is stable and has adequately recovered from anesthesia unless otherwise noted. Post-op Evaluation: Temp: 98.2 ??F Pulse: 85 Resp: 18 SpO2: 91 % BP: 105/59 mmHg Pain Rating Score #: 1 Resp function: Natural Airway Cardiac Function: Stable Mental Status : Awake/Alert Pain: Comfortable / acceptable Nausea / Vomiting: None Post Procedure Hydration: Adequate Other complications A post-op evaluation was performed on the patient with the following assessment: No Apparent Anesthesia Complications Unless otherwise indicated, the patient is being discharged from anesthesia care. Larisa Ferrara NP * Amanda Martin RN - 11/14/2010 4:35 AM CDT Patient alert and oriented with no c/o nausea or vomiting. IV infusing to left hand without problems. Dressing to left knee changed and incision line is well approximated with scant amount of bloody drainage. Circulation good to left leg. Up with walker to [facility] and restroom. VS stable. MICA INSPECTOR discontinued due to minimal usage. [place] 10 mg given for pain. Am lab drawn. Voiding large amounts of clear yellow urine with no pain or burning. * Lorelei Rocha RN - 11/13/2010 4:38 PM CDT Pt arrived here alert and orient x 4,skin warm and dry to touch pt has a patent I V left hand #20 gauge. Pt is wearing o2 @2 l pt has a fall risk bracelet on right arm pt does snore slighty but denies sleep apnea. Pt pedal pulse are palpable ryan feet warm to touch with scd aqnd allie wrap to left knee. * Kyler Conley MD - 11/13/2010 10:15 AM CDT PRE-ANESTHESIA EVALUATION Evaluated By: Kyler Conley MD, 11/13/2010 10:15 AM Yoandy Salinas is a 70 y.o. female Purpose: Scheduled Procedure Scheduled procedure: left uni knee replacement Hospital Problem List Patient Active Problem List Diagnoses Code ??? Hyperlipidemia 272.4S ??? Osteoporosis 733.00C ??? Left Leg Pain 729.5BF Past Medical History Past Medical History Diagnosis Date ??? Other and unspecified hyperlipidemia Hyperlipidemia ??? Arthritis Past Surgical History Past Surgical History Procedure Date ??? Hernia repair, umbilical ??? Cataract removal bilateral ??? Knee arthroscopy left Allergies Review of patient's allergies indicates no known allergies. Meds Prescriptions prior to admission Medication Sig Dispense Refill ??? Cholecalciferol (VITAMIN D3) 5000 UNIT CAPS Take by mouth daily. ??? Coenzyme Q10 (COQ10) 100 MG CAPS Take by mouth daily. ??? atorvastatin (LIPITOR) 40 MG tablet Take 40 mg by mouth at bedtime. ??? EVISTA 60 MG TABS Take 60 mg by mouth at bedtime. ??? CELEBREX 200 MG CAPS Take 200 mg by mouth daily. ??? OMEGA 3 1000 MG CAPS Take 1000 mg by mouth daily. ??? CALCIUM 600+D PLUS MINERALS PO Take by mouth. ??? VITAMIN B-12 PO Take 100 Units by mouth daily. Current facility-administered medications Medication Dose Route Frequency Provider Last Rate Last Dose ??? lactated ringers infusion Intravenous pre-OP continuous Kyler Conley MD ??? famotidine (PEPCID) tablet 20 mg 20 mg Oral pre-OP once Kyler Conley MD Last Dose: 20 mg at 11/13/10 0916 ??? polymyxin B 500,000 Units, bacitracin 50,000 Units in 0.9% nacl 1,000 mL irrigation Irrigation intra-OP once Shawna H. MD Mark ??? ceFAZolin (ANCEF) 2 G in D5W IVPB 2 g Intravenous pre-OP once Shawna H. MD Mark Past Social History History Social History ??? Marital Status: Spouse [...] file Social History Narrative Merged History Encounter Lab Results Component Name 03/29/08 1229 WBC 6.0 HGB 13.8 HCT 41.4 PLTCOUNT 194 Component Name 03/29/08 1229 SODIUM 144 POTASSIUM 4.2 CHLORIDE 106 CO2 23 BUN 15 CREATININE 0.80 GLUCOSE 94 CALCIUM 9.4 No results found for this basename: INR:3,PT:3,PTT:3 in the last 87804 hours No results found for this basename: TROPONIN:3 in the last 67423 hours Last Vital SignsVITAL SIGNS Temp: 97.5 ??F Resp: 18 BP: 138/87 mmHg Weight: 210 lb Height: 5' 10 SpO2: 97 % Pre-Eval ExamPrevious Review I reviewed previous documentation: Yes PHYSICAL EXAM NPO status: Since Midnight Heart Sounds: S1 S2 Respiratory Pattern/Effort: CTA Oriented x 3: Yes Teeth: Ok Airway Class: I ANESTHESIA ASA: II Anesthesia Choices: General PRE-EVAL REVIEW I have reviewed all previously documented physician evaluations: Yes documented in this encounter H&P Notes * Document, Scanned - 11/15/2010 7:09 AM CDT * Shawna Flores MD - 11/12/2010 1:33 PM CDT INPATIENT/OUTPATIENT HISTORY & PHYSICAL Name: Yoandy Salinas : 1940 Date: 11/10/10 Chief Complaint: left knee Allergies: NKDA Prior Surgical Hx: Hernia Past Medical History: Y N Y N Y N Y N COPD X Neurological dx X Hypertension X Infectious Disease X Asthma X Stroke X Diabetes X Bleeding Disorder X Respiratory Infection X Liver Disease X CAD X Smoker X Tuberculosis X Kidney Disease X CHF X Hx Anesthesia problem X Cancer X Seizure Disorder X Ethanol X Drugs X Current Medications: Celebrex, Lipitor, Evista REVIEW OF SYSTEMS: WNL PHYSICAL EXAMINATION: HEART RATE: 65 B/P: 159/99 HEENT: Normocephalic,, atraumatic, no evidence of abnormalities, EOM-intact, Sclera clear, PERRLA No erythema/exudates. No lymphadenopathy, no tracheal deviation, Normal ear canal, tympanic membrane, no thyroid enlargement, no acute infection LUNGS Clear to percussion and auscultation, normal chest wall excursion. HEART: Regular rate and rhythm. No murmurs, gallops, rubs. ABDOMEN: No masses, organomegaly, tenderness, rebound, guarding, rigidity, normal bowel sounds. EXTREMITIES: Symmetrical, equal, no signs of deformities. Peripheral pulses intact. No edema. VARIATION: painful left knee NEUROLOGIC: Alert, oriented, cranial nerves 2-12 intact. Station, gait, coordination intact. No deficits. SKIN: No rashes. No skin lesions. PERTINENT LAB/X-RAY/PATHOLOGY: Degenerative joint disease, left knee PROCEDURE: Left medial uni knee replacement PROCEDURE DATE: 11/13/10 PHYSICIAN: Shawna Flores M.D. documented in this encounter Procedure Notes * Document, Scanned - 11/15/2010 7:09 AM CDTAssociated Order(s): CARDIAC EKG ORDER * Document, Scanned - 11/14/2010 11:35 AM CDTAssociated Order(s): CARDIAC EKG ORDER documented in this encounter Consult Notes * Jose Palumbo DO - 11/14/2010 9:42 AM CDTAssociated Order(s): IP CONSULT TO HOSPITALIST Initial Hospitalist Consult Note Date of Consult: 11/14/2010 Patient's Primary Care Physician: Provider Unknown Physician Requesting Consult: Shawna Flores MD Reason for Consultation: Evaluation of patient's medical problems. Name: Yoandy Salinas Age: 70 y.o. Race: Sex: female Chief Complaint/History of Present Illness This is a 70 y.o. female admitted to the hosptial to undergo a left uni knee replacement. The procedure was done under general anesthetic and there was 100 mls of blood loss noted. The surgery lastedone hour and one minute. The patient tolerated the procedure well and is seen on the floor for further evaluation. Patient denies complaints of: Headache , Chest Pain, Cough, Dyspnea, Abdominal Pain,nausea, Vomiting, Diarrhea, Constipation, Dysuria, or dizziness. Past Medical History Diagnosis Date ??? Other and unspecified hyperlipidemia Hyperlipidemia ??? Arthritis Past Surgical History Procedure Date ??? Hernia repair, umbilical ??? Cataract removal bilateral ??? Knee arthroscopy left ??? Knee replacement 11/13/2010 LEFT UNI Prescriptions prior to admission Medication Sig Dispense Refill ??? Cholecalciferol (VITAMIN D3) 5000 UNIT CAPS Take by mouth daily. ??? Coenzyme Q10 (COQ10) 100 MG CAPS Take by mouth daily. ??? atorvastatin (LIPITOR) 40 MG tablet Take 40 mg by mouth at bedtime. ??? EVISTA 60 MG TABS Take 60 mg by mouth at bedtime. ??? CELEBREX 200 MG CAPS Take 200 mg by mouth daily. ??? OMEGA 3 1000 MG CAPS Take 1000 mg by mouth daily. ??? CALCIUM 600+D PLUS MINERALS PO Take by mouth. ??? VITAMIN B-12 PO Take 100 Units by mouth daily. No Known Allergies History Social History ??? [...] or unknown Sister ??? Cancer Father lung Review of Systems Constitutional: No unexplained fever, sweats. Eyes: Vision stable, no discomfort. Ears, nose, mouth, and throat: No mouth dryness, sores, hearing stable , no nasal discharge. Respiratory: No cough, dyspnea, wheezing, pleuritic pain. Cardiovascular: No exertional chest pain, palpitations, edema, claudication. Gastrointestinal: No bleeding, frequent reflux, dysphagia, change in bowels, pain. Genitourinary: No dysuria,frequency, bleeding. Skin: No recent rashes, or pruritus Hematologic/lymphatic: No history of anemia. No abnormal bleeding or bruising. Musculoskeletal: Knee pain Neurological: Stable gait, no numbness, tingling, syncope, dizziness. Behavioral/Psych: No sleep disturbance, memory changes, depression. Endocrine: No fatigue or weight change. Exam Vitals: 11/13/10 1852 11/13/10 2050 11/14/10 0153 11/14/10 0521 BP: 129/81 122/78 109/66 105/59 Pulse: 75 67 75 85 Temp: 97.3 ??F 98.1 ??F 98.3 ??F 98.2 ??F Resp: 16 18 18 Weight: SpO2: 97% 94% 95% 91% General appearance: alert, cooperative, no distress Head: Normocephalic, without trauma Eyes: sclera and conjunctiva clear, EOMI and PERRLA, lids normal Throat: no mucous membrane abnormalities Neck: range of motion is intact, no masses, thyroid not enlarged, no adenopathy. No bruit. Lungs: breath sounds normal and symmetric; no rales or wheezes Heart: regular rhythm, normal S1 and S2, without murmurs, gallops or rubs Abdomen: soft without mass, non-tender, with normal bowel sounds Extremities: no clubbing, cyanosis or edema. knee bandaged Skin: no rashes or other abnormalities are noted Neurologic: mental status normal; alert and oriented X 3; cranial nerves II - XII are grossly intact Data Component Name 11/14/10 0150 03/29/08 1229 WBC -- 6.0 HGB 12.7 13.8 HCT 39.3 41.4 PLTCOUNT -- 194 Component Name 03/29/08 1229 SODIUM 144 POTASSIUM 4.2 CHLORIDE 106 CO2 23 BUN 15 CREATININE 0.80 GLUCOSE 94 CALCIUM 9.4 ALBUMIN 4.2 ALKPHOS 95 ALT 20 AST 18 TBIL 0.6 TPROT 6.5 EGFR >60 >60 No results found for this basename: TROPONIN:3 in the last 05640 hours No results found for this basename: TSH:3 in the last 16646 hours Assessment and Plan 1. S/p left unilateral knee arthroplasty- physical therapy, pain management. Monitor h/h. Dvt prophper orthopedic surgery recommendations. Encourage incentive spirometry. 2. hyperlipidemia- continue statin CC: Shawna Flores MD , Provider Unknown documented in this encounter OR Notes * Operative - Document, Scanned - 11/15/2010 7:09 AM CDT * Operative - Shawna Flores MD - [facility]13/2010 [facility] OPER[facility]IVE RE[facility] PATIENT: : YOANDY SALINAS#: [id number] ADMIT DATE: 11/13/2010CCT#: [id number] DATE OF SURGERY: : 1940 PHYSICIAN: Shawna Flores MDROOM: 0246 PREOPERATIVE DIAGNOSIS: Left knee degenerative joint disease. POSTOPERATIVE DIAGNOSES: Left knee degenerative joint disease. PROCEDURES PERFORMED: Left knee medial uni knee replacement. SURGEON: Shawna Flores MD IN FLIGHT REFUELING OPERATOR: BEL Stewart PROCEDURE: The patient was brought to the operating room, placed in supine on the operating table, and induced with general anesthesia. The leg was placed in a leg roll, prepped and draped in the usual sterile fashion. Tourniquet was inflated to 350 mmHg and a 3-cm longitudinal incision was made over the anterior aspect of the left knee. Dissection was carried down through the subcutaneous tissue. The fascia was split in medial subvastus fashion. The knee was exposed sacrificing medial meniscus. Osteophytes removed. Femoral and tibia cuts were performed. Trial components were placed and removed. A cemented B tibia was placed with a medial and femoral component and 6-mm Walsh spacer. Good fi xation, stability, alignment, range of motion, and stability were obtained. All excess cement and osteophytes removed. Wound was irrigated. No other abnormalities were noted. Wound was closed with sequential layers using #2 Quill for the repair of the fascia, 2-0 Vicryl subcutaneous tissue and rosi for the skin. Sterile dressing was applied. Sponge and instrument counts were correct. The patient was reversed from Anesthesia and taken to the recovery room. Shawna Flores MD FHM/MedKatie #: [id number] * Operative - Shawna Flores MD - 11/13/2010 12:02 PM CDT Op note Left uni knee replacement gen No comp andre assit drewmarzena [id number] documented in this encounter Miscellaneous Notes * Miscellaneous Scans - Document, Scanned - 11/16/2010 11:37 AM CDT * Miscellaneous Scans - Document, Scanned - 11/15/2010 7:09 AM CDT * Miscellaneous Scans - Document, Scanned - 11/15/2010 7:09 AM CDT * Miscellaneous Scans - Document, Scanned - 11/15/2010 7:09 AM CDT * Miscellaneous Scans - Document, Scanned - 11/15/2010 7:09 AM CDT * Miscellaneous Scans - Document, Scanned - 11/15/2010 7:09 AM CDT documented in this encounter Plan of Treatment Not on file documented as of this encounter Procedures Procedure Name Priority Date/Time Associated Diagnosis Comments CARDIAC EKG ORDER 11/15/2010 9:4 9 AM CDT CARDIAC EKG ORDER 11/14/2010 4:0 4 PM CDT HGB HCT PANEL Routine 11/14/2010 1:50 AM CDT documented in this encounter Results * CARDIAC EKG ORDER (11/15/2010 9:49 AM CDT) Narrative Procedure Note Document, Scanned - 11/15/2010 7:09 AM CDT Scanned Document CARDIAC SERVICES ORD ERABLES * CARDIAC EKG ORDER (11/14/2010 4:04 PM CDT) Narrative Procedure Note Document, Scanned - 11/14/2010 11:35 AM CDT Scanned Document CARDIAC SERVICES ORD ERABLES * HGB HCT PANEL (11/14/2010 1:50 AM CDT) Hemoglobin 12.7 12.0 - 16.0 gm/dl [facility] Hematocrit 39.3 36.0 - 48.0 % [facility] BLOOD SPECIMEN / Unknown 11/14/2010 1:50 AM CDT 11/14/2010 2:41 AM CDT Shawna Flores MD LAB - HEMATOLOGY ORD ERABLES Performing Organization Address City/State/[facility] Co de Phone Number [facility] [address] [place] [address] documented in this encounter Visit Diagnoses Diagnosis Preop examination Preoperative examination, unspecified Preoperative examination, unspecified documented in this encounter Administered Medications Inactive Administered Medications - up to 3 most recent administrations Medication Order MAR Action Action Date Dose Rate Site 0.9% NaCl injection 3 mL 3 mL, Intracatheter, EVERY 8 HOURS, First dose on Wed11/14/10 at 0600, Until Discontinued $ Given 11/14/2010 5:29 AM CDT 3 mL acetaminophen (TYLENOL) tablet 650 mg 650 mg, Oral, EVERY 4 HOURS PRN, Fever, Pain, Starting on Franny 11/13/10 at 1201, Until 11/15/10 at 0104, Maximum allowable Acetaminophen amount = 4 Grams / 24 hours. For temperature greater [id number] degress F or for mild pain at a level of 1-3 on the pain scale. $ Given 11/14/2010 1:55 AM CDT 650 mg ceFAZolin (ANCEF) 2 G in D5W IVPB 2 g, at 200 mL/hr, Intravenous, PRE-OP ONCE, 1 dose $ Admin. by Other Provider 11/13/2010 10:34 AM CDT 2 g 200 mL/hr ceFAZolin (ANCEF) IVPB 1 g 1 g, at 100 mL/hr, Intravenous, EVERY 8 HOURS, 2 doses, First dose on Franny 11/13/10 at 1800, Last dose on Wed11/14/10 at 0200, Last dose to be completed within 24 hours of close of incision. $ Given 11/14/2010 1:51 AM CDT 1 g 100 mL/hr $ Given 11/13/2010 5:57 PM CDT 1 g 100 mL/hr celecoxib (CeleBREX) capsule 400 mg 400 mg, Oral, DAILY, First dose on Wed11/14/10 at 0900, Until Discontinued $ Given 11/14/2010 8:29 AM CDT 400 mg docusate sodium (COLACE) capsule 100 mg 100 mg, Oral, 2 TIMES DAILY, First dose on Wed11/13/10 at 2100, Until Discontinued $ Given 11/14/2010 8:30 AM CDT 100 m g $ Given 11/13/2010 9:11 PM CDT 100 mg enoxaparin (LOVENOX) injection 30 mg 30 mg, Subcutaneous, EVERY 12 HOURS ( AND ), First dose on Wed11/14/10 at 0600, Until Discontinued $ Given 11/14/2010 5:28 AM CDT 30 mg Abdominal Tissue famotidine (PEPCID) tablet 20 mg 20 mg, Oral, PRE-OP ONCE, 1 dose, Administer to patients 18 years of age and older. $ Given 11/13/2010 9:16 AM CDT 20 mg hydrocodone-acetaminophen (NORCO) 10-325 MG tablet 1 Tab 1 tablet, Oral, EVERY 4 HOURS PRN, Pain, Starting on Wed11/13/10 at 1201, Until 11/15/10 at 0104, Maximum allowable Acetaminophen amount = 4 Grams / 24 hours. For severe pain at a level of 7-10 on the pain scale. $ Given 11/14/2010 3:31 AM CDT 1 tablet hydrocodone-acetaminophen (NORCO) 5-325 MG tablet 1 Tab 1 tablet, Oral, EVERY 4 HOURS PRN, Pain, Starting on Wed11/13/10 at 1201, Until 11/15/10 at 0104, Maximum allowable Acetaminophen amount = 4 Grams / 24 hours. For moderate pain at a level of 4-6 on the pain scale. $ Given 11/14/2010 8:29 AM CDT 1 tablet HYDROmorphone (DILAUDID) 1 mg/ml injection ADS Med 1 dose, Starting on Wed11/13/10 at 1225, Until Wed11/13/10 at 1230, KALPANA RAMOS P: Cabinet Override HYDROmorphone (DILAUDID) injection 0.5 mg 0.5 mg, Intravenous, POST-OP MULTIPLE, Starting on Wed11/13/10 at 1218, Until Wed11/14/10 at 0416, 0.5 mg every 10 minutes PRN for pain of 5-10 on pain scale. Up to 3 mg maximum $ Given 11/13/2010 12:40 PM CDT 0.5 mg $ Given 11/13/2010 12:30 PM CDT 0.5 mg lactated ringers infusion at 20 mL/hr, Intravenous, PRE-OP CONTINUOUS, Until Wed11/14/10 at 0416 $ Given 11/13/2010 9:23 AM CDT 20 mL/hr Left Hand lactated ringers infusion at 75 mL/hr, Intravenous, CONTINUOUS, Starting on Franny 11/13/10 at 1215, Until Wed11/14/10 at 0416 $ New Bag/Syringe 11/13/2010 1:58 PM CDT 75 mL/hr morphine 1 mg/ml MICA INSPECTOR Intravenous, MICA INSPECTOR, Until Wed11/15/10 at 0104, .......... MICA INSPECTOR Dose: 1 mg MICA INSPECTOR Interval: 10 minutes Hourly Maximum: 5 mg Contact physician if respiratory rate falls below 8/minute, administer naloxone (Narcan) 0.4 mg IV STAT (repeat every 5 minutes PRN), STOP MICA INSPECTOR immediately, and contact physician. $ Given 11/13/2010 12:31 PM CDT 1 mg morphine 1 mg/ml MICA INSPECTOR ADS Med 1 dose, Starting on Wed11/13/10 at 1225, Until Wed11/13/10 at 1231, KALPANA RAMOS P: Maria Einet Override ondansetron (ZOFRAN) injection 4 mg 4 mg, Intravenous, EVERY 6 HOURS, 4 doses, First dose on Wed11/13/10 at 1800, Last dose on Wed11/14/10 at 1200 $ Given 11/14/2010 5:30 AM CDT 4 mg $ Given 11/13/2010 5:57 PM CDT 4 mg oxyCODONE CR 12hr (OxyCONTIN) tablet 10 mg 10 mg, Oral, EVERY 12 HOURS, 2 doses, First dose on Wed11/13/10 at 2100, Last dose on Wed11/14/10 at 0900, Administer 10 hours post-op and morning of POD#1 Do not crush, chew, or cut in half. $ Given 11/14/2010 8:33 AM CDT 10 mg $ Given 11/13/2010 9:11 PM CDT 10 mg pravastatin (PRAVACHOL) tablet 80 mg 80 mg, Oral, AT BEDTIME, First dose on Franny 11/13/10 at 2100, Until Discontinued, Pharmacy and Therapeutics Interchange Policy The order for Atorvastatin 40mg HS has been changed to Pravastatin 80mg HS per the Therapeutic Interchange Policy. Please contact the Pharmacy Department with any questions concerning this interchange. $ Given 11/13/2010 9:10 PM CDT 80 mg raloxifene (EVISTA) tablet 60 mg 60 mg, Oral, AT BEDTIME, First dose on Franny 11/13/10 at 2100, Until Discontinued, . WASTE DISPOSAL INSTRUCTIONS: Chemo Bin Disposal required. . $ Given 11/13/2010 9:10 PM CDT 60 mg documented in this encounter Active and Recently Administered Medications Times are shown in CDT. Scheduled Medication Order 11/12/2010 11/13/2010 11/14/2010 0.9% NaCl injection 3 mL (CANCELED) 3 mL, Intracatheter, EVERY 8 HOURS, First dose on Wed11/14/10 at 0600, Until Discontinued 05 ($ Given - Prov ider: Amanda Martin RN) ceFAZolin (ANCEF) 2 G in D5W IVPB (COMPLETED) 2 g, at 200 mL/hr, Intravenous, PRE-OP ONCE, 1 dose 1034 ($ Admin. by Other Provider - Provider: Kathy Davis CRNA)1050 (Rx Stopped - Provider: Kathy Davis CRNA) ceFAZolin (ANCEF) IVPB 1 g (COMPLETED) 1 g, at 100 mL/hr, Intravenous, EVERY 8 HOURS, 2 doses, First dose on Wed11/13/10 at 1800, Last dose on Wed11/14/10 at 0200, Last dose to be completed within 24 hours of close of incision. 1757 ($ Given - Provider: Lorelei Rocha RN)1827 (Rx Stopped - Provider: Amanda Martin RN) 0151 ($ Given - Provider: Amanda Martin RN)0221 (Rx Stopped - Provider: Amanda Martin RN) celecoxib (CeleBREX) capsule 400 mg (CANCELED) 400 mg, Oral, DAILY, First dose on Wed11/14/10 at 0900, Until Discontinued 828 ($ Given - Prov ider: Ashlee Orosco RN) docusate sodium (COLACE) capsule 100 mg (CANCELED) 100 mg, Oral, 2 TIMES DAILY, First dose on Wed11/13/10 at 2100, Until Discontinued 2110 ($ Given - Provider: Amanda Martin RN) 829 ($ Given - Provider: Ashlee Orosco RN) enoxaparin (LOVENOX) injection 30 mg (CANCELED) 30 mg, Subcutaneous, EVERY 12 HOURS (06 AND 18), First dose on Wed11/14/10 at 0600, Until Discontinued 527 ($ Given - Prov ider: Amanda Martin RN) famotidine (PEPCID) tablet 20 mg (COMPLETED) 20 mg, Oral, PRE-OP ONCE, 1 dose, Administer to patients 18 years of age and older. 0916 ($ Given - Provider: Amanda Bolton RN) HYDROmorphone (DILAUDID) injection 0.5 mg (CANCELED) 0.5 mg, Intravenous, POST-OP MULTIPLE, Starting on Franny 11/13/10 at 1218, Until Wed11/14/10 at 0416, 0.5 mg every 10 minutes PRN for pain of 5-10 on pain scale. Up to 3 mg maximum 1230 ($ Given - Provider: Kalpana Ramos RN)1240 ($ Given - Provider: Kalpana Ramos RN) ondansetron (ZOFRAN) injection 4 mg (CANCELED) 4 mg, Intravenous, EVERY 6 HOURS, 4 doses, First dose on Franny 11/13/10 at 1800, Last dose on Wed11/14/10 at 1200 1757 ($ Given - Provider: Lorelei Rocha RN) 0000 (Not Administered - Provider: Amanda Martin RN - Reason: Patient sleeping - Comment: no prior c/o nausea or vomiting.)0530 ($ Given - Provider: Amanda Martin RN)1200 (Not Administered - Provider: Ashlee Orosco RN - Reason: Refused-Patient) oxyCODONE CR 12hr (OxyCONTIN) tablet 10 mg (COMPLETED) 10 mg, Oral, EVERY 12 HOURS, 2 doses, First dose on Wed11/13/10 at 2100, Last dose on Wed11/14/10 at 0900, Administer 10 hours post-op and morning of POD#1 Do not crush, chew, or cut in half. 2110 ($ Given - Provider: Amanda Martin RN) 832 ($ Given - Provider: Ashlee Orosco RN) pravastatin (PRAVACHOL) tablet 80 mg (CANCELED) 80 mg, Oral, AT BEDTIME, First dose on Franny 11/13/10 at 2100, Until Discontinued, Pharmacy and Therapeutics Interchange Policy The order for Atorvastatin 40mg HS has been changed to Pravastatin 80mg HS per the Therapeutic Interchange Policy. Please contact the Pharmacy Department with any questions concerning this interchange. 2109 ($ Given - Provider: Amanda Martin RN) raloxifene (EVISTA) tablet 60 mg (CANCELED) 60 mg, Oral, AT BEDTIME, First dose on Wed11/13/10 at 2100, Until Discontinued, . WASTE DISPOSAL INSTRUCTIONS: Chemo Bin Disposal required. . 2109 ($ Given - Provider: Amanda Martin RN) Continuous Medication Order 11/12/2010 11/13/2010 11/14/2010 lactated ringers infusion (CANCELED) at 20 mL/hr, Intravenous, PRE-OP CONTINUOUS, Until Wed11/14/10 at 0416 0923 ($ Given - Provider: Amanda Bolton RN) lactated ringers infusion (CANCELED) at 75 mL/hr, Intravenous, CONTINUOUS, Starting on Franny 11/13/10 at 1215, Until Wed11/14/10 at 0416 1358 ($ New Bag/Syringe - Provider: Kalpana Ramos RN) morphine 1 mg/ml MICA INSPECTOR (CANCELED) Intravenous, MICA INSPECTOR, Until 11/15/10 at 0104, .......... MICA INSPECTOR Dose: 1 mg MICA INSPECTOR Interval: 10 minutes Hourly Maximum: 5 mg Contact physician if respiratory rate falls below 8/minute, administer naloxone (Narcan) 0.4 mg IV STAT (repeat every 5 minutes PRN), STOP MICA INSPECTOR immediately, and contact physician. 1231 ($ Given - Provider: Kalpana Ramos, HUBER - Comment: EVERY 10 MIN WITH A 5 MG/HR MAX WITH NO BASAL) 0349 (Rx Stopped - Provider: Arlen Bullard RN - Comment: waste 32ml)0354 (Rx Stopped - Provider: Amanda Martin RN - Comment: dc'd wasted 32 ml given 18 ml) PRN Medication Order 11/12/2010 11/13/2010 11/14/2010 acetaminophen (TYLENOL) tablet 650 mg (CANCELED) 650 mg, Oral, EVERY 4 HOURS PRN, Fever, Pain, Starting on Franny 11/13/10 at 1201, Until 11/15/10 at 0104, Maximum allowable Acetaminophen amount = 4 Grams / 24 hours. For temperature greater [id number] degress F or for mild pain at a level of 1-3 on the pain scale. 0155 ($ Given - Prov ider: Amanda Martin RN) hydrocodone-acetaminophen (NORCO) 10-325 MG tablet 1 Tab (CANCELED) 1 tablet, Oral, EVERY 4 HOURS PRN, Pain, Starting on Franny 11/13/10 at 1201, Until 11/15/10 at 0104, Maximum allowable Acetaminophen amount = 4 Grams / 24 hours. For severe pain at a level of 7-10 on the pain scale. 0331 ($ Given - Prov ider: Amanda Martin RN) hydrocodone-acetaminophen (NORCO) 5-325 MG tablet 1 Tab 1 tablet, Oral, EVERY 4 HOURS PRN, Pain, Starting on Franny 11/13/10 at 1201, Until 11/15/10 at 0104, Maximum allowable Acetaminophen amount = 4 Grams / 24 hours. For moderate pain at a level of 4-6 on the pain scale. 0829 ($ Given - Prov ider: Ashlee Orosco RN) documented in this encounter Care Teams Pathology Laboratory Aide Relationship Specialty Start Date End Date Unknown, Provider PCP - General 12/04/09 11/28/13 documented as of this encounter
--- OUTSIDE RECORDS SUMMARY | 2024-07-15 03:05 | XMS_ITS | Encounter Summary ---
Author Organization [facility] Address [address] [place] [address] Care Team Providers Care Drawing Machine Operator Name Role Phone Kit Kyle MD Primary Care Provider Reason for Visit * Reason Onset Date Comments Results 12/29/2013 Encounter Details Date Type Department Care Team (Late st Contact Info) Description 12/29/2013 Telephone [facility] - Internal Medicine [address] [place] [address] Kit Kyle MD [address] [place], [place] [address] [address] [place] [address] Results Social History Tobacco Use Types Packs/Day Years [...] * Telephone Encounter - Becky Dinh - 01/04/2014 9:51 AM [facility] Note: Called the lab, one of the labs is still pending, will fax what they have. * Telephone Encounter - Sandy Valdez - 01/04/2014 9:41 AM CDTQuick Note: Called [facility], other two labs are still pending, should be done today. * Telephone Encounter - Kit Kyle MD - 01/04/2014 7:16 AM CDTQuick Note: Where are the rest of her labs? * Telephone Encounter - Maddi Vanegas - 01/02/2014 2:23 PM CDT Spoke to patient and she is scheduled [facility] [facility] * Telephone Encounter - Randi Sotelo APRN-CNP - 12/29/2013 9:19 AM CDT Spoke with pt. She is ready to set up cardiac cath but she will need to find someone to help watch her who has had a CVA. She is calling his kids to get that set up. Please call patient when you get time to set her up. * Telephone Encounter - Delfina Chun MA - 12/29/2013 8:58 AM CDT Pt called regarding her stress test results. While getting the test done she was advised that she would need a cardiac catheterization. She has some questions/concerns that she would like to discuss. documented in this encounter Plan of Treatment Not on file documented as of this encounter Procedures Procedure Name Priority Date/Time Associated Diagnosis Comments CBC W AUTO DIFFERENTIAL Routine 01/03/2014 3:12 PM CDT Other Nonspecific Abnormal Cardiovascular System Function Study documented in this encounter Results * CBC W AUTO DIFFERENTIAL (01/03/2014 3:12 PM CDT) WBC 5.9 3.4 - 10.8 x10E3/uL [facility] ACCOUNT BILL RBC 4.60 3.77 - 5.28 x10E6/uL [facility] ACCOUNT BILL Hemoglobin 13.5 11.1 - 15.9 g/dL [facility] ACCOUNT BILL Hematocrit 41.4 34.0 - 46.6 % [facility] ACCOUNT BILL MCV 90 79 - 97 fL [facility] ACCOUNT BILL MCH 29.3 26.6 - 33.0 pg [facility] ACCOUNT BILL MCHC 32.6 31.5 - 35.7 g/dL [facility] ACCOUNT BILL RDW 13.4 12.3 - 15.4 % [facility] ACCOUNT BILL Platelet Count 174 150 - 379 x10E3/uL [facility] ACCOUNT BILL Comment:Please note refere nce interval change Granulocytes % 61 40 - 74 % [facility] ACCOUNT BILL Lymphocytes % 27 14 - 46 % [facility] ACCOUNT BILL Monocytes % 9 4 - 12 % [facility] ACCOUNT BILL Eosinophils % 2 0 - 5 % [facility] ACCOUNT BILL Basophils % 1 0 - 3 % [facility] ACCOUNT BILL Immature Cells NOT NEEDED [facility] ACCOUNT BILL Comment:Ancillary determined the test is not needed Granulocytes Absolute 3.7 1.4 - 7.0 x10E3/uL [facility] ACCOUNT BILL Lymphocytes Absolute 1.6 0.7 - 3.1 x10E3/uL [facility] ACCOUNT BILL Monocytes Absolute 0.5 0.1 - 0.9 x10E3/uL [facility] ACCOUNT BILL Eosinophils Absolute 0.1 0.0 - 0.4 x10E3/uL [facility] ACCOUNT BILL Basophils Absolute 0.0 0.0 - 0.2 x10E3/uL [facility] ACCOUNT BILL Immature Granulocytes 0 0 - 2 % [facility] ACCOUNT BILL Immature Granulocytes Absolute 0.0 0.0 - 0.1 x10E3/uL [facility] ACCOUNT BILL nRBC NOT NEEDED [facility] ACCOUNT BILL Comment:Ancillary determined the test is not needed Comment Hematology NOT NEEDED [facility] ACCOUNT BILL Comment:Ancillary determined the test is not needed Blood specimen (specimen) BLOOD SPECIMEN / Unknown 01/03/2014 3:12 PM CDT 01/03/2014 6:08 PM CDT Narrative Resulting Agency Comment [facility] [address] [facility] ??[facility] [phone] Kit Kyle MD LAB - HEMATOLOGY ORD ERABLES [facility] Organization Address City/State/ZIP Co de Phone Number [facility] ACCOUNT BILL documented in this encounter Visit Diagnoses Diagnosis Other nonspecific abnormal cardiovascular system function study- Primary documented in this encounter Care Teams Drawing Machine Operator Relationship Specialty Start Date End Date Kit Kyle MD [address] [place] [address] PCP - General Internal Medicine 12/19/13 12/15/16 documented as of this encounter
--- OUTSIDE RECORDS SUMMARY | 2024-07-15 03:05 | XMS_ITS | Encounter Summary ---
Author Organization [facility] Address [address] [place] [address] Care Team Providers Care Buildings And Grounds Director Name Role Phone Unknown, Provider Primary Care Provider Unavaila ble Reason for Visit * Reason Comments Pain Leg had knee surg on 08/13 and has been having pain ever since, 1st 3 months pt stated thought it was from surgery, pain and swelling cont. pt contacted ortho and was concerned of blood clot Encounter Details Date Type Department Care Team (Late st Contact Info) Description 12/04/2009 9:50 AM CDT - 12/04/2009 12:20 PM CDT Emergency ER at [facility] [address] [place] [address] Becky Rubio, [employer] STORERO[employer] CLERK [address] [place] [address] Left Leg Pain (Primary Dx) Discharge Disposition: Home or Self [...] Sign Reading Time Taken Comments Blood Pressure 156/94 12/04/2009 9:58 AM CDT Pulse 76 12/04/2009 9:58 AM CDT Temperature 36.4 ??C (97.6 ??F) 12/04/2009 9:58 AM CD T Respiratory Rate 18 12/04/2009 9:58 AM CDT Oxygen Saturation 96% 12/04/2009 9:58 AM CDT Inhaled Oxygen Concentration - - Weight 93.9 kg (207 lb) 12/04/2009 9:58 AM CDT Height 177.8 cm (5' 10) 12/04/2009 9:58 AM CDT Body Mass Index 29.7 12/04/2009 9:58 AM CDT documented in this encounter Discharge Instructions * Discharge Instructions* Becky Rubio NP - 12/04/2009 12:10 PM CDT Rest. Ice. Elevate. Dr. Wolff will call you this afternoon to discuss your situation further. Return to the ED if you feel worse, short of breath, chest pain, new symptoms, or concerns. Knee Problems, Questions and Answers Knee problems commonly occur in young people and adults. This document contains general informationabout several knee problems. It includes descriptions and a diagram of the different parts of the knee. Individual sections describe the symptoms, diagnosis, and treatment of specific types of knee injuries and conditions. Information on how to prevent these problems is also provided. WHAT DO THE KNEES DO? HOW DO THEY WORK? The knees provide stable support for the body and allow the legs to bend and straighten. Both flexibility and stability are needed for standing and for motions like walking, running, crouching, jumping, and turning. Several kinds of supporting and moving parts, including bones, cartilage, muscles, ligaments, and tendons, help the knees do their job. Any of these parts can be involved in pain or dysfunction (doesnot work right). WHAT CAUSES KNEE PROBLEMS? There are two general kinds of knee problems: mechanical and inflammatory. ?? Mechanical Knee Problems - Some knee problems result from injury, such as a direct blow or sudden movements that strain the knee beyond its normal range of movement. Other problems, such as osteoarthritis in the knee, result from wear and tear on its parts. ?? Inflammatory Knee Problems - Inflammation that occurs in certain rheumatic diseases, such as rheumatoid arthritis and systemic lupus erythematosus, can damage the knee. JOINT BASICS ?? The point at which two or more bones are connected is called a joint. ?? In all joints, the bones are kept from grinding against each other by padding called cartilage. ?? Bones are joined to bones by strong, elastic bands of tissue called ligaments. ?? Tendons are tough cords of tissue that connect muscle to bone. ?? Muscles work in opposing pairs to bend and straighten joints. While muscles are not technically part of a joint, they're important because strong muscles help support and protect joints. WHAT ARE THE PARTS OF THE KNEE? Like any joint, the knee is composed of bones and cartilage, ligaments, tendons, and muscles. BONES AND CARTILAGE The knee joint is the junction of three bones: the femur (thigh bone or upper leg bone), the tibia (portillo bone or larger bone of the lower leg), and the patella (knee cap). The patella is 2 to 3 inches wide and 3 to 4 inches long. It sits over the other bones at the front of the knee joint and slides when the leg moves. It protects the knee and gives leverage to muscles. The ends of the three bones in the knee joint are covered with articular cartilage, a tough, elastic material that helps absorb shock and allows the knee joint to move smoothly. the bones of the knee are pads of connective tissue. One pad is called a meniscus. The plural is menisci. The menisci are divided into two crescent-shaped discs positioned between the tibia and femur on the outer and inner sides of each knee. The two menisci in each knee act as shock absorbers, cushioning thelower part of the leg from the weight of the rest of the body as well as enhancing stability. MUSCLES There are two groups of muscles at the knee. ?? The quadriceps muscle comprises four muscles on the front of the thigh that work to straighten the leg from a bent position. ?? The hamstring muscles, which bend the leg at the knee, run along the back of the thigh from the hip to just below the knee. Keeping these muscles strong with exercises such as walking up stairs or riding a stationary bicycle helps support and protect the knee. TENDONS AND LIGAMENTS ?? The quadriceps tendon connects the quadriceps muscle to the patella and provides the power to extend the leg. Four ligaments connect the femur and tibia and give the joint strength and stability: l The medial collateral ligament (MCL) provides stability to the inner (medial) part of the knee. l The lateral collateral ligament (LCL) provides stability to the outer (lateral) part of the knee. l The anterior cruciate ligament (ACL), in the center of the knee, limits rotation and the forward movement of the tibia. l The posterior cruciate ligament (PCL), also in the center of the knee, limits backward movement of the tibia. ?? Other ligaments are part of the knee capsule, which is a protective, fiber- like structure that wraps around the knee joint. Inside the capsule, the joint is lined with a thin, soft tissue called synovium. HOW ARE KNEE PROBLEMS DIAGNOSED? Caregivers use several methods to diagnose knee problems: ?? Medical history--The patient tells the caregiver details about symptoms and about any injury, condition, or general health problem that might be causing the pain. ?? Physical examination--The caregiver bends, straightens, rotates (turns), or presses on the knee to feel for injury and discover the limits of movement and the location of pain. The patient may be asked to stand, walk, or squat to help the caregiver understand how the knee is working. ?? Diagnostic tests--The caregiver uses one or more tests to determine the nature of a knee problem. l X ray (radiography)--An x-ray beam is passed through the knee to produce a two-dimensional picture of the bones. l Computerized axial tomography (CAT) scan--X rays lasting a fraction of a second are passed through the knee at different angles, detected by a scanner, and analyzed by a computer. This produces a series of clear cross-sectional images (???slices?? ) of the knee tissues on a computer screen. CAT scan images show soft tissues such as ligaments or muscles more clearly than conventional x rays. Thecomputer can combine individual images to give a three-dimensional view of the knee. l Bone scan (radionuclide scanning)--A very small amount of radioactive material is injected into the patient's bloodstream and detected by a scanner. This test detects blood flow to the bone and cell activity within the bone and can show abnormalities in these workings that may help the caregiver understand what is wrong. l Magnetic resonance imaging (MRI)--Energy from a powerful magnet (rather than x rays) stimulates knee tissue to produce signals that are detected by a scanner and analyzed by a computer. This creates a series of cross-sectional images of a specific part of the knee. An MRI is particularly useful for detecting soft tissue damage or disease. Like a CAT scan, a computer is used to produce three-dimensional views of the knee during MRI. l Arthroscopy--The caregiver manipulates a small, lighted optic tube (arthroscope) that has been inserted into the joint through a small incision in the knee. Images of the inside of the knee joint are projected onto a television screen. While the arthroscope is inside the knee joint, removal of loose pieces of bone or cartilage, or the repair of torn ligaments and menisci is also possible. l Biopsy--The caregiver removes tissue to examine under a microscope. KNEE INJURIES AND PROBLEMS ARTHRITIS WHAT IS ARTHRITIS OF THE KNEE? ?? Arthritis of the knee is most often osteoarthritis. In this disease, the cartilage in the joint gradually wears away. Osteoarthritis may be caused by excess stress on the joint from deformity, repeated injury, or excess weight. It most often affects middle-aged and older people. A young person who develops osteoarthritis may have an inherited form of the disease or may have experienced continuous irritation from an unrepaired torn meniscus or other injury. ?? In rheumatoid arthritis, which can also affect the knees, the joint becomes inflamed and cartilage may be destroyed. Rheumatoid arthritis often affects people at an earlier age than osteoarthritis. ?? Arthritis not only affects joints; it can also affect supporting structures such as muscles, tendons, and ligaments. SIGNS AND DIAGNOSIS ?? Someone who has arthritis of the knee may experience pain, swelling, and a decrease in knee motion. ?? A common symptom is morning stiffness that lessens as the person moves around. ?? Sometimes the joint locks or clicks when the knee is bent and straightened, but these signs may occur in other knee disorders as well. ?? The caregiver may confirm the diagnosis by performing a physical examination and examining x rays, which typically show a loss of joint space. ?? Blood tests may be helpful for diagnosing rheumatoid arthritis, but other tests may be needed, too. ?? Analyzing fluid from the knee joint may be helpful in diagnosing some kinds of arthritis. ?? The caregiver may use arthroscopy to directly see damage to cartilage, tendons, and ligaments and to confirm a diagnosis, but arthroscopy is usually done only if a repair procedure is to be performed. TREATMENT ?? Most often osteoarthritis of the knee is treated with pain-reducing medicines, such as aspirin or acetaminophen (Tylenol*); nonsteroidal anti- inflammatory drugs (NSAIDs), such as ibuprofen (Motrin, Nuprin, Advil); and exercises to restore joint movement and strengthen the knee. ?? Losing excess weight can also help people with osteoarthritis. ?? Rheumatoid arthritis of the knee may require physical therapy and more powerful medications. In people with arthritis of the knee, a seriously damaged joint may need to be replaced with an artificial one. (A new procedure designed to stimulate the growth of cartilage by using a patient's own cartilage cells is being used experimentally to repair cartilage injuries at the end of the femur at the knee. It is not, however, a treatment for arthritis.) * Brand names included in this document are provided as examples only, and their inclusion does notmean that these products are endorsed by the [employer] of [employer] or any other Government agency. Also, if a particular brand name is not mentioned, this does not mean or imply that the product is unsatisfactory. CARTILAGE INJURIES AND DISORDERS WHAT IS CHONDROMALACIA? ?? Chondromalacia, also called chondromalaciapatellae, refers to softening of the articular cartilage of the knee cap. This disorder occurs most often in young adults and can be caused by injury, overuse, parts out of alignment, or muscle weakness. Instead of gliding smoothly across the lower end of the thigh bone, the knee cap rubs against it, thereby roughening the cartilage underneath the kneecap. The damage may range from a slightly abnormal surface of the cartilage to a surface that has been worn away to the bone. ?? Chondromalacia related to injury occurs when a blow to the knee cap tears off either a small piece of cartilage or a large fragment containing a piece of bone (osteochondral fracture). SYMPTOMS AND DIAGNOSIS ?? The most frequent symptom is a dull pain around or under the knee cap that worsens when walking down stairs or hills. ?? A person may also feel pain when climbing stairs or when the knee bears weight as it straightens. ?? The disorder is common in runners and is also seen in skiers, cyclists, and soccer players. ?? A patient's description of symptoms and a follow-up x ray usually help the caregiver make a diagnosis. ?? Although arthroscopy (visual examination with a special surgical viewing tool) can confirm the diagnosis, it's not performed unless the condition requires extensive treatment. TREATMENT ?? Many caregivers recommend that patients with chondromalacia perform low- impact exercises that strengthen muscles, particularly the inner part of the quadriceps, without injuring joints. Swimming, riding a stationary bicycle, and using a cross-country ski machine are acceptable as long as the knee does not bend more than 90 degrees. ?? Electrical stimulation may also be used to strengthen the muscles. ?? If these treatments do not improve the condition, the caregiver may perform arthroscopic surgeryto smooth the surface of the cartilage and ???wash out?? the cartilage fragments that cause the joint to catch during bending and straightening. ?? In more severe cases, surgery may be necessary to correct the angle of the knee cap and relieve friction with the cartilage or to reposition parts that are out of alignment. INJURIES TO THE MENISCUS WHAT CAUSES INJURIES TO THE MENISCUS? The meniscus is easily injured by the force of rotating the knee while bearing weight. A partial ortotal tear may occur when a person quickly twists or rotates the upper leg while the foot stays still (for example, when dribbling a basketball around an opponent or turning to hit a tennis ball). Ifthe tear is tiny, the meniscus stays connected to the front and back of the knee; if the tear is large, the meniscus may be left hanging by a thread of cartilage. The seriousness of a tear depends onits location and extent. SYMPTOMS ?? Generally, when people injure a meniscus, they feel some pain, particularly when the knee is straightened. ?? If the pain is mild, the person may continue moving. ?? Severe pain may occur if a fragment of the meniscus catches between the femur and the tibia. ?? Swelling may occur soon after injury if blood vessels are disrupted, or swelling may occur several hours later if the joint fills with fluid produced by the joint lining (synovium) as a result of inflammation. If the synovium is injured, it may become inflamed and produce fluid to protect itself. This makes the knee swell. ?? Sometimes, an injury that occurred in the past but was not treated becomes painful months or years later, particularly if the knee is injured a second time. ?? After any injury, the knee may click, lock, or feel weak. ?? Although symptoms of meniscal injury may disappear on their own, they frequently persist or return and require treatment. DIAGNOSIS ?? In addition to listening to the patient's description of the start of pain and swelling, the caregiver may perform a physical examination and take x rays of the knee. The examination may include atest in which the caregiver bends the leg, and then rotates the leg outward and inward while extending it. Pain or an audible click suggests a meniscal tear. ?? An MRI may be recommended to confirm the diagnosis. ?? Occasionally, the caregiver may use arthroscopy to help diagnose and treat a meniscal tear. TREATMENT If the tear is minor and the pain and other symptoms go away, the caregiver may recommend a muscle-strengthening program. Exercises for meniscal problems are best started with guidance from a caregiver and physical therapist or exercise therapist. The therapist will make sure that the patient does the exercises properly and without risking new or repeat injury. The following exercises after injury to the meniscus are designed to build up the quadriceps and hamstring muscles and increase flexibility and strength. l Warming up the joint by riding a stationary bicycle, then straightening and raising the leg (but not straightening it too much). l Extending the leg while sitting (a weight may be worn on the ankle for this exercise). l Raising the leg while lying on the stomach. l Exercising in a pool (walking as fast as possible in chest-deep water, performing small flutter kicks while holding onto the side of the pool, and raising each leg to 90 degrees in chest-deep waterwhile pressing the back against the side of the pool). ?? If the tear is more extensive, the caregiver may perform arthroscopic or open surgery to see theextent of injury and to repair the tear. The caregiver can sew the meniscus back in place if the patient is relatively young, if the injury is in an area with a good blood supply, and if the ligaments are intact. Most young athletes are able to return to active sports after meniscus repair. ?? If the patient is elderly or the tear is in an area with a poor blood supply, the caregiver may cut off a small portion of the meniscus to even the surface. In some cases, the caregiver removes the entire meniscus. However, osteoarthritis is more likely to develop in the knee if the meniscus is removed. Medical researchers are investigating a procedure called an allograft, in which the surgeonreplaces the meniscus with one from a cadaver. A grafted meniscus is fragile and will shrink and tear easily. Researchers have also attempted to replace a meniscus with an artificial one, but this procedure is even less successful than an allograft. ?? Recovery after surgical repair takes several weeks, and postoperative (after surgery) activity is slightly more restricted than when the meniscus is removed. However, putting weight on the joint actually helps recovery. Regardless of the form of surgery, rehabilitation usually includes walking, bending the legs, and doing exercises that stretch and build up leg muscles. ?? The best results of treatment for meniscal injury are obtained in people who do not show articular cartilage changes and who have an intact ACL. LIGAMENT INJURIES WHAT ARE THE CAUSES OF ANTERIOR AND POSTERIOR CRUCIATE LIGAMENT INJURIES? ?? Injury to the cruciate ligaments is sometimes referred to as a ???sprain?? . ?? The ACL is most often stretched or torn (or both) by a sudden twisting motion (for example, whenthe feet are planted one way and the knees are turned another). ?? The PCL is most often injured by a direct impact, such as in an automobile accident or football tackle. SYMPTOMS AND DIAGNOSIS ?? Injury to a cruciate ligament may not cause pain. Rather, the person may hear a popping sound, and the leg may buckle when he or she tries to stand on it. ?? The caregiver may perform several tests to see whether the parts of the knee stay in proper position when pressure is applied in different directions. ?? A thorough examination is essential. An MRI is very accurate in detecting a complete tear, but arthroscopy may be the only reliable means of detecting a partial one. TREATMENT ?? For an incomplete tear, the caregiver may recommend that the patient begin an exercise program to strengthen surrounding muscles. ?? The caregiver may also prescribe a brace to protect the knee during activity. ?? For a completely torn ACL in an active athlete and motivated person, the caregiver is likely to recommend surgery. The surgeon may reattach the torn ends of the ligament or reconstruct the torn ligament by using a piece (graft) of healthy ligament from the patient (autograft) or from a cadaver (allograft). Although synthetic ligaments have been tried in experiments, the results have not been as good as with human tissue. One of the most important elements in a patient's successful recovery after cruciate ligament surgery is a 4- to 6-month exercise and rehabilitation program that may involve using special exercise equipment at a rehabilitation or sports center. Successful surgery and reha bilitation will allow the patient to return to a normal lifestyle. MEDIAL AND LATERAL COLLATERAL LIGAMENT INJURIES WHAT IS THE MOST COMMON CAUSE OF MEDIAL AND LATERAL COLLATERAL LIGAMENT INJURIES? The MCL is more easily injured than the LCL. The cause is most often a blow to the outer side of the knee that stretches and tears the ligament on the inner side of the knee. Such blows frequently occur in contact sports like football or hockey. SYMPTOMS AND DIAGNOSIS ?? When injury to the MCL occurs, a person may feel a pop and the knee may buckle sideways. ?? Pain and swelling are common. ?? A thorough examination is needed to determine the kind and extent of the injury. ?? To diagnose a collateral ligament injury, the caregiver exerts pressure on the side of the knee to determine the degree of pain and the looseness of the joint. ?? An MRI is helpful in diagnosing injuries to these ligaments. TREATMENT ?? Most sprains of the collateral ligaments will heal if the patient follows a prescribed exercise program. ?? In addition to exercise, the caregiver may recommend ice packs to reduce pain and swelling and asmall sleeve-type brace to protect and stabilize the knee. ?? A sprain may take 2 to 4 weeks to heal. ?? A severely sprained or torn collateral ligament may be accompanied by a torn ACL, which usually requires surgical repair. TENDON INJURIES AND DISORDERS WHAT CAUSES TENDINITIS AND RUPTURED TENDONS? ?? Knee tendon injuries range from tendinitis (inflammation of a tendon) to a ruptured (torn) tendon. ?? If a person overuses a tendon during certain activities such as dancing, cycling, or running, the tendon stretches like a worn-out rubber band and becomes inflamed. ?? Also, trying to break a fall may cause the quadriceps muscles to contract and tear the quadriceps tendon above the patella or the patellar tendon below the patella. This type of injury is most likely to happen in older people whose tendons tend to be weaker. ?? Tendinitis of the patellar tendon is sometimes called jumper's knee because in sports that require jumping, such as basketball, the muscle contraction and force of hitting the ground after a jump strain the tendon. ?? After repeated stress, the tendon may become inflamed or tear. SYMPTOMS AND DIAGNOSIS ?? People with tendinitis often have tenderness at the point where the patellar tendon meets the bone. In addition, they may feel pain during running, hurried walking, or jumping. ?? A complete rupture of the quadriceps or patellar tendon is not only painful, but also makes it difficult for a person to bend, extend, or lift the leg against gravity. ?? If there is not much swelling, the caregiver will be able to feel a defect in the tendon near the tear during a physical examination. ?? An x ray will show that the patella is lower than normal in a quadriceps tendon tear and higher than normal in a patellar tendon tear. The caregiver may use an MRI to confirm a partial or total tear. TREATMENT ?? Initially, the caregiver may ask a patient with tendinitis to rest, elevate, and apply ice to the knee and to take medicines such as aspirin or ibuprofen to relieve pain and decrease inflammation and swelling. ?? If the quadriceps or patellar tendon is completely ruptured, a surgeon will reattach the ends. After surgery, the patient will wear a cast for 3 to 6 weeks and use crutches. ?? For a partial tear, the caregiver might apply a cast without performing surgery. ?? Rehabilitating a partial or complete tear of a tendon requires an exercise program that is similar to but less forceful than that prescribed for ligament injuries. The goals of exercise are to restore the ability to bend and straighten the knee and to strengthen the leg to prevent repeat injury.A rehabilitation program may last 6 months, although the patient can return to many activities before then. CORNELIUS-SCHLATTER DISEASE WHAT CAUSES CORNELIUS-SCHLATTER DISEASE? ?? Cornelius-Schlatter disease is caused by repetitive stress or tension on part of the growth area ofthe upper tibia (the apophysis). It is characterized by inflammation of the patellar tendon and surrounding soft tissues at the point where the tendon attaches to the tibia. ?? The disease may also be associated with an injury in which the tendon is stretched so much that it tears away from the tibia and takes a fragment of bone with it. ?? The disease most commonly affects active young people, particularly boys between the ages of 10 and 15, who play games or sports that include frequent running and jumping. SYMPTOMS AND DIAGNOSIS ?? People with this disease experience pain just below the knee joint that usually worsens with activity and is relieved by rest. ?? A bony bump that is particularly painful when pressed may appear on the upper edge of the tibia (below the knee cap). ?? Usually, the motion of the knee is not affected. ?? Pain may last a few months and may come back until the child's growth is completed. ?? Cornelius-Schlatter disease is most often diagnosed by the symptoms. An x ray may be normal, or show an injury, or, more typically, show that the growth area is in fragments. TREATMENT ?? Usually, the disease resolves (goes away) without treatment. ?? Applying ice to the knee when pain begins helps relieve inflammation and is sometimes used alongwith stretching and strengthening exercises. ?? The caregiver may advise the patient to limit participation in vigorous sports. Children who wish to continue moderate or less stressful sports activities may need to wear knee pads for protectionand apply ice to the knee after activity. If there is a great deal of pain, sports activities may be limited until discomfort becomes tolerable. ILIOTIBIAL BAND SYNDROME WHAT CAUSES ILIOTIBIAL BAND SYNDROME? This is an overuse condition in which inflammation results when a band of a tendon rubs over the outer bone (lateral condyle) of the knee. Although iliotibial band syndrome may be caused by direct injury to the knee, it is most often caused by the stress of long-term overuse, such as sometimes occurs in sports training. SYMPTOMS AND DIAGNOSIS ?? A person with this syndrome feels an ache or burning sensation at the side of the knee during activity. Pain may be localized at the side of the knee or radiate up the side of the thigh. ?? A person may also feel a snap when the knee is bent and then straightened. ?? Swelling is usually absent and knee motion is normal. ?? The diagnosis of this disorder is typically based on the symptoms, such as pain at the outer bone, and exclusion of other conditions with similar symptoms. TREATMENT ?? Usually, iliotibial band syndrome disappears if the person reduces activity and performs stretching exercises followed by muscle-strengthening exercises. ?? In rare cases when the syndrome does not disappear, surgery may be necessary to split the tendonso it is not stretched too tightly over the bone. OTHER KNEE INJURIES WHAT IS OSTEOCHONDRITIS DISSECANS? ?? Osteochondritis dissecans results from a loss of the blood supply to an area of bone underneath a joint surface and usually involves the knee. The affected bone and its covering of cartilage gradually loosen and cause pain. ?? This problem usually arises spontaneously in an active adolescent or young adult. It may be due to a slight blockage of a small artery or to an unrecognized injury or tiny fracture that damages the overlying cartilage. ?? Lack of a blood supply can cause bone to break down (avascular necrosis). ?? The involvement of several joints or the appearance of osteochondritis dissecans in several family members may indicate that the disorder is inherited. ?? A person with this condition may eventually develop osteoarthritis. SYMPTOMS AND DIAGNOSIS ?? If normal healing does not occur, cartilage separates from the diseased bone and a fragment breaks loose into the knee joint, causing weakness, sharp pain, and locking of the joint. ?? An x ray, MRI, or arthroscopy can determine the condition of the cartilage and can be used to diagnose osteochondritis dissecans. TREATMENT ?? If cartilage fragments have not broken loose, a surgeon may fix them in place with pins or screws that are sunk into the cartilage to stimulate a new blood supply. ?? If fragments are loose, the surgeon may scrape down the cavity to reach fresh bone and add a bone graft and fix the fragments in position. Fragments that cannot be mended are removed, and the cavity is drilled or scraped to stimulate new cartilage growth. ?? Research is being done to assess the use of cartilage cell and other tissue transplants to treatthis disorder. WHAT IS PLICA SYNDROME? ?? Plica syndrome occurs when plicae (bands of synovial tissue) are irritated by overuse or injury. ?? Synovial plicae are the remains of tissue pouches found in the early stages of development. As the fetus develops, these pouches normally combine to form one large synovial cavity. If this process is incomplete, plicae remain as four folds or bands of synovial tissue within the knee. ?? Injury, chronic overuse, or inflammatory conditions are associated with this syndrome. SYMPTOMS AND DIAGNOSIS ?? People with this syndrome are likely to experience pain and swelling, a clicking sensation, and locking and weakness of the knee. ?? Because the symptoms are similar to those of some other knee problems, plica syndrome is often misdiagnosed. Diagnosis usually depends on excluding other conditions that cause similar symptoms. TREATMENT ?? The goal of treatment is to reduce inflammation of the synovium and thickening of the plicae. l The caregiver usually prescribes medicine such as ibuprofen to reduce inflammation. l The patient is also advised to reduce activity, apply ice and an elastic bandage to the knee, anddo strengthening exercises. l A cortisone injection into the plica folds helps about half of those treated. ?? If treatment fails to relieve symptoms within 3 months, the caregiver may recommend arthroscopicor open surgery to remove the plicae. WHAT KINDS OF CAREGIVERS TREAT KNEE PROBLEMS? ?? Extensive injuries and diseases of the knees are usually treated by an orthopedic surgeon, a doctor who has been trained in the nonsurgical and surgical treatment of bones, joints, and soft tissues such as ligaments, tendons, and muscles. ?? Patients seeking nonsurgical treatment of arthritis of the knee may also consult a fish cleaner (a caregiver specializing in the diagnosis and treatment of arthritis and related disorders). HOW CAN PEOPLE PREVENT KNEE PROBLEMS? Some knee problems, such as those resulting from an accident, cannot be foreseen or prevented. However, a person can prevent many knee problems by following these suggestions: ?? Before exercising or participating in sports, warm up by walking or riding a stationary bicycle,and then do stretches. Stretching the muscles in the front of the thigh (quadriceps) and back of the thigh (hamstrings) reduces tension on the tendons and relieves pressure on the knee during activity. ?? Strengthen the leg muscles by doing specific exercises (for example, by walking up stairs or hills, or by riding a stationary bicycle). A supervised workout with weights is another way to strengthen the leg muscles that support the knee. ?? Avoid sudden changes in the intensity of exercise. Increase the force or duration of activity gradually. ?? Wear shoes that both fit properly and are in good condition to help maintain balance and leg alignment when walking or running. Knee problems can be caused by flat feet or overpronated feet (feet that roll inward). People can often reduce some of these problems by wearing special shoe inserts (orthotics). ?? Maintain a healthy weight to reduce stress on the knee. Obesity increases the risk of degenerative (wearing) conditions such as osteoarthritis of the knee. WHAT TYPES OF EXERCISE ARE MOST SUITABLE FOR SOMEONE WITH KNEE PROBLEMS? Three types of exercise are best for people with arthritis: ?? Phhef-pw-pypttg exercises help maintain normal joint movement and relieve stiffness. This type of exercise helps maintain or increase flexibility. ?? Strengthening exercises help keep or increase muscle strength. Strong muscles help support and protect joints affected by arthritis. ?? Aerobic or endurance exercises improve function of the heart and circulation and help control weight. Weight control can be important to people who have arthritis because extra weight puts pressure on many joints. Some studies show that aerobic exercise can reduce inflammation in some joints. WHERE CAN PEOPLE FIND MORE INFORMATION ABOUT KNEE PROBLEMS? National [employer] of Arthritis and Musculoskeletal and Skin Diseases Information Clearinghouse, [facility] [address] [place] [address] or 652-65-ZZIVN ([phone]) (free of charge) TTY: [phone] http://www.niams.nih.gov/ The clearinghouse provides information about various forms of arthritis and rheumatic disease and bone, muscle, and skin diseases. It distributes patient and professional education materials and refers people to other sources of information. Additional information and updates can also be found on the [facility] Web site. [employer] [address] [place] [address] Phone: [phone] ([phone]) (free of charge) www.aaos.org The academy provides education and practice management services for orthopedic surgeons and allied health professionals. It also serves as an advocate for improved patient care and informs the publicabout the science of orthopedics. The orthopedist's scope of practice includes disorders of the body's bones, joints, ligaments, muscles, and tendons. For a single copy of an AAOS brochure, send a self-addressed stamped envelope to the address above or visit the AAOS Web site. [employer] [address], [address] [place] [phone] www.rheumatology.org This national professional organization can provide referrals to rheumatologists and allied health professionals, such as physical therapists. One-page fact sheets are available on various forms of arthritis. Lists of specialists by geographic area and fact sheets are also available on this Web site. [employer] [address] [place] [address] Phone: [phone] ([phone]) (free of charge) www.apta.org The association publishes a free brochure titled ???Taking Care of the Knees?? . [employer] [address] [place] [address] or [phone] (free of charge) or call your local chapter (listed in the local telephone directory) www.arthritis.org The foundation has several free brochures about coping with arthritis, taking nonsteroid and steroid medicines, and exercise. A free brochure on protecting your joints is titled ???Using Your Joints Wisely?? . The [facility] also can provide addresses and phone numbers for local chapters and physician and clinic referrals. ACKNOWLEDGMENTS The [facility] gratefully acknowledges the assistance of Arlen Napoles M.D., and Neil Bellamy M.D., M.P.H., [facility], [facility]; Cesar Williamson M.D., [employer], [place], [place]; Bunny Hernandez M.D., [place], [place]; and Faye Giordano M.D., [place], [place], in the preparation and review of this document. Publication Date: November 2000 The mission of the National Joice of Arthritis and Musculoskeletal and Skin Diseases (NIAMS) isto support research into the causes, treatment, and prevention of arthritis and musculoskeletal andskin diseases; the training of basic and clinical scientists to carry out this research; and the dissemination of information on research progress in these diseases. The [facility] Information Clearinghouse is a public service sponsored by the [facility] that provides health information and information sources. Additional information and research updates can be found on the NIAOR Web site at http://www.niams.nih.gov/. Document Released: 06/30/2004 Document Re-Released: 04/24/2008 ExitCare?? Patient Information ??2009 [employer]. * Discharge Instructions* Document, Scanned - 12/04/2009 12:00 AM CDT documented in this encounter Medications [...] daily. 11/12/2010 documented as of this encounter Procedure Notes * Joselito Chowdhury MD - 12/04/2009 12:00 AM CDTAssociated Order(s): VASCULAR LAB ORDER [facility] - Vascular Lab Report PATIENT NAME:YOANDY SALINAS [facility]#:[id number] ROOM#: SEX:F ADMISSION DATE:12/04/2009DOB:1940 DATE: 12/04/2009 VENOUS DUPLEX EXAMINATION OF THE LEFT LOWER EXTREMITY INDICATION: The patient is a 69-year-old with left leg pain. DESCRIPTION: The deep veins and greater saphenous vein of the left leg were examined with duplex and color flow imaging according to the request of the ordering physician. The right common femoral vein was examined per protocol. Bilaterally, the common femoral veins as well as the left femoral, popliteal, posterior tibial, peroneal, and greater saphenous veins were found to have spontaneous and phasic flow. No echogenic material could be identified within the lumens. All vessels were compressible. There was appropriate augmentation with distal compression. Reflux was not noted with proximal compression. IMPRESSION: 1.There is no evidence of deep venous thrombosis or greater saphenous vein thrombosis in the left leg by this examination. 2.Venous insufficiency was not demonstrated in the left leg. DICTATOR: Jose SMITH/MedKatie #: [id number] cc:Dr. Francisco Rubio NP documented in this encounter ED Notes * Becky Rubio NP - 12/04/2009 11:51 AM CDT Images from the original note were not included. 12/04/2009 11:51 AM History Chief Complaint Patient presents with ??? Pain Leg had knee surg on 08/2009 and has been having pain ever since, 1st 3 months pt stated thought it was from surgery, pain and swelling cont. pt contacted ortho and was concerned of blood clot HPI Comments: Presents to ED with c/o left lower extremity swelling gradually worsing since August when she had surgery for a torn meniscus. States she called Dr. Cuellar's office this AM to make an apt. & she was told to come to the ED to rule out a blood clot. Also states knee has been popping & giving out more since the surgery. Intermittent paraesthesias/numbness radiating down the leg into the foot & up the calf. Denies dyspnea, prolonged sitting/travel, recent injury or fall. Lower Extremity Problem The history is provided by the patient. Associated symptoms include swelling. No past medical history on file. Past Surgical History Procedure Date ??? Hernia repair, umbilical ??? Hernia repair History Social History ??? Marital Status: Spouse Name: N/A Number of Children: N/A ??? 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 Tobacco Use: Never ??? Alcohol Use: No rare ??? Drug Use: No ??? Sexually Active: Not on file Other Topics Concern ??? Not on file Social History Narrative Merged History Encounter Medications Current outpatient prescriptions Medication Sig Dispense Refill ??? raloxifene (EVISTA) 60 MG tablet Take 60 mg by mouth daily. ??? atorvastatin (LIPITOR) 40 MG tablet Take 40 mg by mouth at bedtime. ??? aspirin 81 MG chew tablet Take 81 mg by mouth daily. ??? celecoxib (CELEBREX) 200 MG capsule Take 200 mg by mouth daily. ??? EVISTA 60 MG TABS Take 60 mg by mouth daily. ??? CELEBREX 200 MG CAPS Take 200 mg by mouth daily. ??? LIPITOR 40 MG TABS Take 40 mg by mouth at bedtime. ??? vitamin E (TOCOPHERYL) 1000 UNIT capsule Take 1 Cap by mouth daily. ??? OMEGA 3 1000 MG CAPS Take 1000 mg by mouth daily. ??? vitamin C (ASCORBIC ACID) 500 MG tablet Take 500 mg by mouth daily. ??? CALCIUM 600+D PLUS MINERALS PO Take by mouth. ??? VITAMIN B-12 PO Take by mouth. ??? selenium (SELSUN) 2.5 % shampoo Apply to affected area daily. Apply and leave on for 10 minutesand then rinse off use for 7 days one bottle 0 Review of Systems Constitutional: Negative. Negative for fever. Skin: Negative. HENT: Negative. Eyes: Negative. Cardiovascular: Negative. Respiratory: Negative. Gastrointestinal: Negative. Genitourinary: Negative. Musculoskeletal: Positive for joint pain (left leg). Endo/Heme/Allergies: Negative. Neurological: Negative. Psychiatric: Negative. All other systems reviewed and are negative. BP 156/94 Pulse 76 Temp 97.6 ??F Resp 18 Wt 93.895 kg (207 lb) Physical Exam Nursing note and vitals reviewed. Constitutional: She is oriented and well-developed, well-nourished, and in no distress. Vital signsare normal. HENT: Head: Normocephalic and atraumatic. Eyes: Conjunctivae are normal. Pupils are equal, round, and reactive to light. Neck: Normal range of motion. Neck supple. Cardiovascular: Normal rate, regular rhythm and normal heart sounds. Pulmonary/Chest: Effort normal and breath sounds normal. Abdominal: Normal appearance and bowel sounds are normal. Soft. No tenderness. Musculoskeletal: Normal range of motion. Legs: Left knee: Patella midline, no apprehension No MCL/LCL laxity Negative Kathryn's Negative anterior/posterior drawers Fully extends knee against resistance No open wounds Dp 2+ Distal motor and sensory intact Negative homans sign. Trace pedal edema on left. Calf measurements 39cm bilaterally. Neurological: She is alert and oriented. She has normal sensation, normal strength, normal reflexesand intact cranial nerves. Gait normal. GCS score is 15. Skin: Skin is warm and dry. Psychiatric: Mood and affect normal. EKG Interpretation Lab Interpretation Normal Labs:normal CBC and normal Chemistry Oxygen Saturation Interpretation The oxygen saturation level is: 96%. The patient was on Room Air for the saturation measurement. Measurement frequency: Spot Check. Oxygen saturation interpretation is Normal. Intervention(s) used: None. VAS LEFT VENOUS DUPLEX LE (Results Pending) Medical Decision Making I have reviewed the: Nursing Notes and Vitals. I have interpreted the following results: Ultrasound (No DVT) and Oxygen Saturation. I have discussed the case with Orthopedics (Amanda for Dr. cuellar). Progress Notes 1200: I spoke with Amanda at Dr. Cuellar's office regarding the negative doppler report. States Dr. Cuellar unavaliable at this time- in OR. Will have him call her this afternoon. PERC rule negative except for age & trace pedal edema. Procedures ED Plan/Course: Discussed plan of care with patient & need for follow up. Pt agreeable and requests discharge. Diagnosis Encounter Diagnosis Name Primary? Left Leg Pain Yes * Umer Maldonado MD - 12/04/2009 11:51 AM CDT For this patient encounter, I reviewed the WARES SORTER or PA documentation, procedures (if done), treatment plan, and medical decision making. * Sobia Kelley RN - 12/04/2009 11:45 AM CDT Pt resting in room, awaiting results from venous doppler * Sobia Kelley RN - 12/04/2009 11:30 AM CDT Report received from vandana Flores rn. Assumed care of pt. * Flavia Folres RN - 12/04/2009 11:14 AM CDT Reports pain in tolerable at this time. Not requesting pain meds. Has appt with PMD on December 16. * Flavia Flores RN - 12/04/2009 11:13 AM CDT Increased swelling to left foot and knee, had surgery on left knee in aug of this year. States thatDoppler has been completed. 1+ pedal pulse appreciated. * Telma Ruelas RN - 12/04/2009 10:00 AM CDT Had knee sugery in 08/2009, has had swelling and pain from groin down leg ever since. Thought that the 1st 3 months was from the surgery, now concerned since not going away, called ortho Dr and they stated to come to ER due to possible blood clot documented in this encounter Miscellaneous Notes * Miscellaneous Scans - Document, Scanned - 12/04/2009 12:00 AM CDT * Miscellaneous Scans - Document, Scanned - 12/04/2009 12:00 AM CDT documented in this encounter Plan of Treatment Pending Results Name Type Priority Associated Diagnoses Date /Time US VENOUS DUPLEX LEFT LEG Vascular STAT Left Leg Pain 12/04/2009 11:13 AM CDT Scheduled Orders Name Type Priority Associated Diagnoses Orde r Schedule US VENOUS DUPLEX LEFT LEG Vascular STAT Left Leg Pain For radiant use only for 1 Occurrences starting 12/04/2009 documented as of this encounter Procedures Procedure Name Priority Date/Time Associated Diagnosis Comments VASCULAR LAB ORDER 12/04/2009 12 :00 AM CDT documented in this encounter Results * VASCULAR LAB ORDER (12/04/2009 12:00 AM CDT) Anatomical Region Laterality Modality Other 12/04/2009 Narrative Procedure Note Joselito Chowdhury MD - 12/04/2009 12:00 AM CDT [facility] - Vascular Lab Report PATIENT NAME:YOANDY SALINAS#:[id number] ROOM#: SEX:F ADMISSION DATE:12/04/2009DOB:1940 DATE: 12/04/2009 VENOUS [...] in the left leg. DICTATOR: Jose SMITH/Katy #:[id number] cc:Dr. Francisco Rubio NP Joselito Chowdhury MD VASCULAR LAB ORDERA BLES documented in this encounter Visit Diagnoses Diagnosis Left leg pain- Primary Pain in limb documented in this encounter Care Teams Buildings And Grounds Director Relationship Specialty Start Date End Date Unknown, Provider PCP - General 12/04/09 11/28/13 documented as of this encounter
--- OUTSIDE RECORDS SUMMARY | 2024-07-15 03:05 | XMS_ITS | Encounter Summary ---
Author Organization [facility] Address [address] [place] [address] Care Team Providers Care Supervisor Electronics Assembly Name Role Phone Kit Kyle MD Primary Care Provider [phone] Reason for Visit * Reason Comments Physical Encounter Details Date Type Department Care Team (Late st Contact Info) Description 01/02/2014 9:00 AM CDT Office Visit [facility] - Internal Medicine [address] [place] [address] Kit Kyle MD [address] [place], [place] [address] [address] [place] [address] Routine general medical examination at a health care facility (Primary Dx); Chest pain; Osteoporosis; Hyperlipidemia; Need for pneumococcal vaccine Social History Tobacco Use Types Packs/Day Years [...] Sign Reading Time Taken Comments Blood Pressure 130/86 01/02/2014 9:05 AM CDT Pulse 72 01/02/2014 9:05 AM CDT Temperature - - Respiratory Rate - - Oxygen Saturation - - Inhaled Oxygen Concentration - - Weight 88 kg (194 lb) 01/02/2014 9:05 AM CDT Height 177.8 cm (5' 10) 01/02/2014 9:05 AM CDT Body Mass Index 27.84 01/02/2014 9:05 AM CDT documented in this encounter Progress Notes * Kit Kyle MD - 01/05/2014 7:56 AM CDT Let her know her labs look great. Have her follow up with cardiology as planned * Becky Dinh - 01/04/2014 11:50 AM CDTQuick Note: Called PT back and left detailed msg, per HIPAA * Kit Kyle MD - 01/04/2014 11:37 AM CDTQuick Note: Let her know her labs are great. Follow up with cardiology as planned * Kit Kyle MD - 01/03/2014 6:40 AM CDT SUBJECTIVE: Ernestine Salinas is a 73 y.o. female is here to establish care with me. She was recently seen forchest pain and had an abnormal stress test. She tells me she has not yet set up a cardiac catheterization would understand she should do 1. She still does have intermittent brief episodes of pain. She is on aspirin. Regarding her hyperlipidemia she takes her meds without difficulty. Regarding her osteoporosis she is on a this set which I told her to stopped due to its cardiac risk.See MA note foradditional details of history. Patient Active Problem List Diagnosis Date Noted ??? Hyperlipidemia 03/29/2008 ??? Osteoporosis 03/29/2008 Current Outpatient Prescriptions on File Prior to [...] PO Take 100 Units by mouth daily. ??? gabapentin (NEURONTIN) 300 MG capsule Take 300 mg by mouth 3 times daily. No current facility-administered medications on file prior to visit. Past Surgical History Procedure Laterality Date ??? Hernia repair, umbilical ??? Cataract removal bilateral ??? Knee arthroscopy left ??? Knee replacement 11/13/2010 LEFT UNI History Substance Use Topics ??? Smoking status: Former Smoker -- 0.50 packs/day for 20 years Quit date: 07/12/1992 ??? Smokeless tobacco: Never Used Comment: quit @ 20 yrs ago ??? Alcohol Use: No Comment: rare Immunization History Administered Date(s) Administered ??? DT 05/18/2009 Review of Systems - Cardiovascular ROS see above Respiratory ROS: no cough, shortness of breath, or wheezing All others as documented in the subjective section of this note. OBJECTIVE: BP 130/86 Pulse 72 Wt 87.998 kg (194 lb) BMI 27.84 kg/m2 General appearance: alert, well appearing, and [...] no pedal edema, no clubbing or cyanosis No results found for this basename: CHOL, TRIG, HDL, LDLCALC, in the last 56979 hours Recent Labs Component Name 03/29/08 1229 SODIUM 144 POTASSIUM 4.2 CHLORIDE 106 CO2 23 BUN 15 CREATININE 0.80 GLUCOSE 94 CALCIUM 9.4 ALBUMIN 4.2 ALKPHOS 95 ALT 20 AST 18 TBIL 0.6 TPROT 6.5 EGFR >60 No results found for this basename: HGBA1C, in the last 30227 hours No results found for this basename: MICROALBCREA, in the last 29262 hours No results found for this basename: TSH, in the last 59475 hours No results found for this basename: PSA, in the last 32743 hours No results found for this basename: [id number], in the last 13832 hours Assessment and Plan: Routine general medical examination at a health care facility - Plan: aspirin (ASPIRIN) 81 MG tablet, COMPREHENSIVE METABOLIC PANEL, LIPID PROFILE REFLEX LDL DIRECT (PO REF LAB), PNEUMOCOCCAL VACCINEADULT, MEDICARE ADVANTAGE RISK ADJUSTED VISIT Chest pain - Plan: PNEUMOCOCCAL VACCINE ADULT, MEDICARE ADVANTAGE RISK ADJUSTED VISIT Osteoporosis - Plan: PNEUMOCOCCAL VACCINE ADULT, MEDICARE ADVANTAGE RISK ADJUSTED VISIT Hyperlipidemia - Plan: PNEUMOCOCCAL VACCINE ADULT, MEDICARE ADVANTAGE RISK ADJUSTED VISIT Need for pneumococcal vaccine - Plan: PNEUMOCOCCAL VACCINE ADULT, MEDICARE ADVANTAGE RISK ADJUSTED VISIT Will pursue cardiac catheterization. Get labs 1st. Have her follow up after that type other loose ends regarding colonoscopy tomography what to do with her osteoporosis, etcetera * Maribel Polk - 01/02/2014 9:05 AM CDT Ernestine Salinas is a 73 y.o. female is here today for her annual physical; not currently fastingfor lab work. States she just found out she needs a heart cath and would like to go over options for that and has some questions concerning insulin injections with her partner. documented in this encounter Plan of Treatment Not on file documented as of this encounter Procedures Procedure Name Priority Date/Time Associated Diagnosis Comments LIPID PROFILE REFLEX LDL DIRECT Routine 01/03/2014 3:12 PM CDT Routine general medical examination at a health care facility COMPREHENSIVE METABOLIC PANEL Routine 01/03/2014 3:12 PM CDT Routine general medical examination at a health care facility documented in this encounter Results * LIPID PROFILE REFLEX LDL DIRECT (PO REF LAB) (01/03/2014 3:12 PM CDT) Cholesterol 157 100 - 199 mg/dL [facility] ACCOUNT BILL Triglycerides 102 0 - 149 mg/dL [facility] ACCOUNT BILL HDL Cholesterol 53 >39 mg/dL [facility] ACCOUNT BILL Comment: According to ATP-III Guidelines, HDL-C >59 mg/dL is considered a negative risk factor for CHD. VLDL Calculated 20 5 - 40 mg/dL [facility] ACCOUNT BILL LDL Calculated 84 0 - 99 mg/dL [facility] ACCOUNT BILL Comment NOT NEEDED [facility] ACCOUNT BILL Comment:Ancillary determined the test is not needed Cholesterol/HDL Ratio 3.0 0.0 - 4.4 ratio units [facility] ACCOUNT BILL LDL/HDL Ratio 1.6 0.0 - 3.2 ratio units [facility] ACCOUNT BILL BLOOD SPECIMEN / Unknown 01/03/2014 3:12 PM CDT 01/03/2014 6:08 PM CDT Narrative Resulting Agency Comment [facility] [address] ??[facility] [phone] Kit Kyle MD LAB - CHEMISTRY JONHNY ASCENCIO [facility] ACCOUNT BILL * (ABNORMAL) COMPREHENSIVE METABOLIC PANEL (01/03/2014 3:12 PM CDT) Glucose 95 65 - 99 mg/dL [facility] ACCOUNT BILL BUN 12 8 - 27 mg/dL [facility] ACCOUNT BILL Creatinine 0.74 0.57 - 1.00 mg/dL [facility] ACCOUNT BILL eGFR by MDRD 82 >59 mL/min/1.7 3 [facility] ACCOUNT BILL eGFR by MDRD 94 >59 mL/min/1.7 3 [facility] ACCOUNT BILL BUN/Creatinine Ratio 16 11 - 26 [facility] ACCOUNT BILL Sodium 142 134 - 144 mmol/L [facility] ACCOUNT BILL Potassium 3.9 3.5 - 5.2 mmol/L [facility] ACCOUNT BILL Chloride 104 97 - 108 mmol/L [facility] ACCOUNT BILL CO2 26 18 - 29 mmol/L [facility] ACCOUNT BILL Comment:Please note refere nce interval change Calcium 8.7 8.6 - 10.2 mg/dL [facility] ACCOUNT BILL Protein Total 5.6(L) 6.0 - 8.5 g/dL [facility] ACCOUNT BILL Albumin 3.8 3.5 - 4.8 g/dL [facility] ACCOUNT BILL Globulin Total 1.8 1.5 - 4.5 g/dL [facility] ACCOUNT BILL Albumin/Globulin Ratio 2.1 1.1 - 2.5 [facility] ACCOUNT BILL Bilirubin Total 1.1 0.0 - 1.2 mg/dL [facility] ACCOUNT BILL Alkaline Phosphatase 87 39 - 117 IU/L [facility] ACCOUNT BILL AST 15 0 - 40 IU/L [facility] ACCOUNT BILL ALT 17 0 - 32 IU/L [facility] ACCOUNT BILL Blood specimen (specimen) BLOOD SPECIMEN / Unknown 01/03/2014 3:12 PM CDT 01/03/2014 6:08 PM CDT Narrative Resulting Agency Comment [facility] [place] [address] [facility] ??[facility] [phone] Kit Kyle MD LAB - CHEMISTRY JOHNNY ASCENCIO [facility] Organization Address City/State/ZIP Co de Phone Number [facility] ACCOUNT BILL documented in this encounter Visit Diagnoses Diagnosis Routine general medical examination at a health care facility- Primary Chest pain Osteoporosis Hyperlipidemia Other and unspecified hyperlipidemia Need for pneumococcal vaccine Need for prophylactic vaccination against streptococcus pneumoniae (pneumococcus) documented in this encounter Care Teams Supervisor Electronics Assembly Relationship Specialty Start Date End Date Kit Kyle MD [address] [place] [address] PCP - General Internal Medicine 12/19/13 12/15/16 documented as of this encounter
--- OUTSIDE RECORDS SUMMARY | 2024-07-15 03:06 | XMS_ITS | Encounter Summary ---
Author Organization [facility] Address [facility]. [place], [place] [address] [place] [address] Care Team Providers Care Strap Buckler Machine Name Role Phone Orlando Cortez MD Primary Care Provider Reason for Referral * Imaging (Routine) - Closed Specialty Diagnoses / Procedures Referred By Contac t Referred To Contact RADIOLOGY Diagnoses Visit for screening mammogram Procedures MG SCREENING W Deshawn Lozoya NP [address] [place] [phone] Phone: tel: fax: Referral ID Status Reason Start Date Expiration Date Visits Re quested Visits Authorized [id number] Closed 01/05/2023 03/07/2024 1 1 Reason for Visit * Imaging (Routine) - Closed Specialty Diagnoses / Procedures Referred By Mecca t Referred To Contact RADIOLOGY Diagnoses Visit for screening mammogram Procedures MG SCREENING W Deshawn Lozoya NP [address] [place] [address] Phone: tel: fax: Referral ID Status Reason Start Date Expiration Date Visits Re quested Visits Authorized [id number] Closed 01/05/2023 03/07/2024 1 1 Encounter Details Date Type Department Care Team (Latest Contact Info) Description 01/19/2023 1:57 PM CDT - 01/19/2023 11:59 PM [address]T Hospital Encounter [facility] [address] [place] [address] Deshawn Angela, [employer] [address] [place] [address] Discharge Disposition: Home or Self Care (Routine Discharge) Social History Tobacco Use Types Packs/Day Years Used Date Smoking Tobacco: Former Smokeless Tobacco: Never Alcohol Use Standard Drinks/Week Comments No 0 (1 standard drink = 0.6 oz pur e alcohol) AUDIT-C Answer Date Recorded Frequency of Alcohol Consumption Never 06/30/2018 Average Number of Drinks Not on file 018 Frequency of Binge Drinking Not on file 06/12 Comments No Sex and Gender Information Value Date Recorded Sex Assigned at Not on file Legal Sex Female 6:36 PM CDT Gender Identity Not on file Sexual Orientation Not on file documented as of this encounter Medications at Time of Discharge acetaminophen 500 MG tablet Take 500 mg by mouth every 6 (six) hours as needed for Pain. aspirin 81 MG tablet Take 81 mg by mouth. atorvastatin 40 MG tablet Take 40 mg by mouth nightly at bedtime. 12/02/2015 donepezil 10 MG Tab Take 1 tablet by mouth daily. 11/17/2017 duloxetine 60 MG capsule Take 60 mg by mouth daily. gabapentin 300 MG capsuleIndication s:Neuropathy Take 1 capsule (300 mg total) by mouth 2 (two) times daily. 180 capsule 1 02/17/2021 HYDROcodone-aceta minophen (NORCO) 5-325 MG tabletIndications :Acute Pain < 7 Day Supply Take 1-2 tablets by mouth every 6 (six) hours as needed for Pain. Indications: Acute Pain < 7 Day Supply 15 tablet 07/03/2022 ibuprofen (MOTRIN) 800 MG tabletIndications :Other closed fracture of distal end of right radius, initial encounter Take 1 tablet (800 mg total) by mouth every 8 (eight) hours as needed for Pain. 90 tablet 07/02/2022 Melatonin 10 MG Tab Take 5 mg by mouth nightly at bedtime. 11/17/2017 memantine 10 MG tablet Take 10 mg by mouth daily. [place]-3 Fatty Acids (FISH OIL PEARLS) 300 MG Cap Take 1,000 Units by mouth daily. 11/17/2017 raloxifene 60 MG tablet Take 1 tablet by mouth daily. 01/06/2018 traMADol 50 MG tabletIndications :Chronic Pain Take 50 mg by mouth 4 (four) times daily. Indications: Chronic Pain 2 01/18/2018 vitamin D3, cholecalciferol, 1000 UNIT Tab tablet 2,000 Units daily. 04/07/2021 documented as of this encounter Plan of Treatment Not on file documented as of this encounter Procedures Procedure Name Priority Date/Time Associated Diagnosis Comments MG SCREENING W MAHOGANY TARA DIGI Routine 01/19/2023 2:49 PM CDT Visit for screening mammogram documented in this encounter Results * MG SCREENING W MAHOGANY TARA DIGI (01/19/2023 2:49 PM CDT) Anatomical Region Laterality Modality Breast Bilateral Mammography 01/19/2023 5:03 PM CDT Narrative 01/19/2023 5:04 PM CDT Examination: Digital screening mammogram with CAD. Clinical history: Asymptomatic patient presents for routine screening. Comparison: 10/01/2021, 02/09/2017, 02/04/2016. Technique: Bilateral digital mammograms. The exam was interpreted with the use of a computer-aided detection (CAD) system. ??Additional 3-D tomosynthesis images were acquired. Tissue density: The breast tissue contains scattered fibroglandular densities. Findings: The breast tissue contains scattered fibroglandular densities. ?? Benign-appearing calcification noted. No suspicious mass, microcalcification or area of architectural distortion can be identified. From a mammographic standpoint, routine followup in one year would seem adequate. IMPRESSION: No suspicious change since the previous exams. Recommendation: 1: Routine Screening ??Bilateral ??in 1 Year Assessment: ACR BI-RADS 2 - BENIGN FINDING(S) Ordered By: DESHAWN ANGELA Interpreted By: Jesus Arizmendi MD, 01/19/2023 5:03 PM Deshawn Angela [employer] MAMMO Fin al Result documented in this encounter Visit Diagnoses Diagnosis Visit for screening mammogram Other screening mammogram documented in this encounter Care Teams Strap Buckler Machine Relationship Specialty Start Date End Date Orlando Cortez MD [address] [place] [phone] PCP - General FAMILY PRACTICE 06/27/18 documented as of this encounter
--- OUTSIDE RECORDS SUMMARY | 2024-07-15 03:06 | XMS_ITS | Encounter Summary ---
Author Organization [facility] Address [address] [place] [address]. [place] [address] [place] [address] Care Team Providers Care Manager Customs Name Role Phone Orlando Cortez MD Primary Care Provider [phone] Encounter Details Date Type Department Care Team (Late st Contact Info) Description 08/25/2022 Orders Only [facility] [address], [facility] [place] [address] Maximo Lara MD [address] [place] [address] Social History Tobacco Use Types Packs/Day Years [...] on file Sexual Orientation Not on file COVID-19 Exposure Response Date Recorded In the last 10 days, have yo u been in contact with someone who was confirmed or suspected to have Coronavirus/COVID-19? No / Unsure 08/11/2022 11:28 AM MINISTER HELPER documented as of this encounter Plan of Treatment Not on file documented as of this encounter Results * XR WRIST RT 2V (08/25/2022 4:31 PM MINISTER HELPER) Anatomical Region Laterality Modality Wrist Radiographic Mely ging 08/26/2022 3:25 AM MINISTER HELPER Impressions 08/26/2022 3:28 AM MINISTER HELPER Impression: 1. ??Soft tissue swelling. 2. ??Stable screw plate fixation of the distal radial fracture. ??No gross healing changes as of yet. 3. ??Unchanged ulnar styloid avulsion fracture. Referred By: ?? Interpreted By: Kit Pizarro MD, 08/26/2022 3:25 AM Narrative 08/26/2022 3:28 AM MINISTER HELPER Date: 08/25/2022 4:31 PM Exam: XR WRIST RT 2V Comparison: Right wrist radiography dated 08/11/2022, 07/02/2022. Technique: 2 views of the right wrist. History: Recheck fracture. ??Follow-up. Findings: There is stable screw plate fixation of the distal radial fracture that appears well aligned. ??There is no gross periosteal reaction as of yet. ??There is an unchanged ulnar styloid avulsion fracture. ??The carpus is grossly intact. 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 ??There is soft tissue swelling. Procedure Note Kit Pizarro MD - 08/26/2022 Date: 08/25/2022 4:31 PM Exam: XR WRIST RT 2V Comparison: Right wrist radiography dated 08/11/2022, 07/02/2022. Technique: 2 views of the right wrist. History: Recheck fracture. Follow-up. Findings: There is stable screw plate fixation of the distal radialfracture that appears well aligned. There is no gross periosteal reactionas of yet. There is an unchanged ulnar styloid avulsion fracture. Thecarpus is grossly intact. There is stable considerable arthritis in thelateral carpus and first carpal metacarpal joint. There is soft tissueswelling. Impression: 1. Soft tissue swelling. 2. Stable screw plate fixation of the distal radial fracture. No grosshealing changes as of yet. 3. Unchanged ulnar styloid avulsion fracture. Referred By: Interpreted By: Kit Pizarro MD, 08/26/2022 3:25 AM Maximo Lara MD GENERAL IMAGING Final Result documented in this encounter Visit Diagnoses Diagnosis Orthopedic aftercare- Primary Unspecified orthopedic aftercare Orthopedic aftercare Unspecified orthopedic aftercare documented in this encounter Care Teams Manager Customs Relationship Specialty Start Date End Date Orlando Cortez MD [address] [place] [phone] PCP - General FAMILY PRACTICE 06/27/18 documented as of this encounter
--- OUTSIDE RECORDS SUMMARY | 2024-07-15 03:06 | XMS_ITS | Encounter Summary ---
Author Organization [facility] Address [facility] hospital[facility]. [place], [place] [address] [place] [address] Care Team Providers Care Food Production Supervisor Name Role Phone Orlando Cortez MD Primary Care Provider [phone] Encounter Details Date Type Department Care Team (Latest Contact Info) Description 01/19/2023 Travel Social History Tobacco Use Types Packs/Day Years [...] on filedocumented in this encounter Care Teams Food Production Supervisor Relationship Specialty Start Date End Date Orlando Cortez MD [address] [place] [phone] PCP - General FAMILY PRACTICE 06/27/18 documented as of this encounter
--- OUTSIDE RECORDS SUMMARY | 2024-07-15 03:06 | XMS_ITS | Encounter Summary ---
Author Organization [facility] Address [facility] [facility] [place] [address] [place] [address] Care Team Providers Care Correspondent Name Role Phone Orlando Cortez MD Primary Care Provider [phone] Encounter Details Date Type Department Care Team (Latest Contact Info) Description 08/11/2022 Travel Social History Tobacco Use Types Packs/Day [...] Coronavirus/COVID-19? No / Unsure 08/11/2022 11:28 AM SALES SERVICE TECHNICIAN documented as of this encounter Plan of Treatment Not on file documented as of this encounter Visit Diagnoses Not on filedocumented in this encounter Care Teams Correspondent Relationship Specialty Start Date End Date Orlando Cortez MD [address] [place] [phone] PCP - General FAMILY PRACTICE 06/27/18 documented as of this encounter
--- OUTSIDE RECORDS SUMMARY | 2024-07-15 03:06 | XMS_ITS | Encounter Summary ---
Author Organization [facility] Address [facility] [place] [address] [place] [address] Care Team Providers Care Bean Weigher Name Role Phone Orlando Cortez MD Primary Care Provider [phone] Encounter Details Date Type Department Care Team (Latest Contact Info) Description 08/25/2022 4:11 PM SUPERVISOR STITCHING DEPARTMENT - 08/25/2022 11:59 PM [facility] Hospital Encounter [facility] [address] [place] [address] Maximo Lara MD [address] [place] [address] Discharge Disposition: Home or Self Care (Routine [...] suspected to have Coronavirus/COVID-19? No / Unsure 08/25/2022 4:05 PM SUPERVISOR STITCHING DEPARTMENT documented as of this encounter Medications at [...] tablet Take 10 mg by mouth daily. [place]-3 Fatty Acids (FISH OIL PEARLS) 300 MG [...] Name Priority Date/Time Associated Diagnosis Comments XR WRIST RT 2V Routine 08/25/2022 4:31 PM SUPERVISOR STITCHING DEPARTMENT Orthopedic aftercare documented in this encounter Results * XR WRIST RT 2V (08/25/2022 4:31 PM SUPERVISOR STITCHING DEPARTMENT) Anatomical Region Laterality Modality Wrist Radiographic Mely ging 08/26/2022 3:25 AM SUPERVISOR STITCHING DEPARTMENT Impressions 08/26/2022 3:28 AM SUPERVISOR STITCHING DEPARTMENT Impression: 1. ??Soft tissue swelling. 2. ??Stable screw plate fixation of the distal radial fracture. ??No gross healing changes as of yet. 3. ??Unchanged ulnar styloid avulsion fracture. Referred By: ?? Interpreted By: Kit Pizarro MD, 08/26/2022 3:25 AM Narrative 08/26/2022 3:28 AM SUPERVISOR STITCHING DEPARTMENT Date: 08/25/2022 4:31 PM Exam: XR WRIST [...] By: Kit Pizarro MD, 08/26/2022 3:25 AM us Maximo Lara MD GENERAL IMAGING Final Result documented in this encounter Visit Diagnoses Diagnosis Orthopedic aftercare Unspecified orthopedic aftercare documented in this encounter Care Teams Bean Weigher Relationship Specialty Start Date End Date Orlando Cortez MD [address] [place] [phone] PCP - General FAMILY PRACTICE 06/27/18 documented as of this encounter
--- OUTSIDE RECORDS SUMMARY | 2024-07-15 03:06 | XMS_ITS | Encounter Summary ---
Author Organization [facility] Address [facility] [place] [address] [place] [address] Care Team Providers Care Coal Getter Name Role Phone Orlando Cortez MD Primary Care Provider +- [phone] Encounter Details Date Type Department Care Team (Latest Contact Info) Description 08/25/2022 Travel Social History Tobacco Use Types Packs/Day [...] Coronavirus/COVID-19? No / Unsure 08/25/2022 4:05 PM SENIOR FACILITIES MANAGER documented as of this encounter Plan of Treatment Not on file documented as of this encounter Visit Diagnoses Not on filedocumented in this encounter Care Teams Coal Getter Relationship Specialty Start Date End Date Orlando Coretz MD [address] [place] [phone] PCP - General FAMILY PRACTICE 06/27/18 documented as of this encounter
--- OUTSIDE RECORDS SUMMARY | 2024-07-15 03:06 | XMS_ITS | Encounter Summary ---
Author Organization [facility] Address [address] [place] [address]. [place] [address] [place] [address] Care Team Providers Care Contract Lead Name Role Phone Orlando Cortez MD Primary Care Provider Reason for Visit * Reason Comments Postop Followup DOS 07/03/2022 Open reduction internal fixation RIGHT distal radius fracture using a Mary volar locking plate Encounter Details Date Type Department Care Team (Latest Contact Info) Description 07/15/2022 2:30 PM BIOMEDICAL ANALYTICAL SCIENTIST Office Visit [facility] [address] [address] Maximo Lara MD [address] [place] [phone] Postop Followup (DOS 07/03/2022 Open reduction internal fixation RIGHT distal radius fracture using a Mary volar locking plate) Social History Tobacco Use Types Packs/Day Years [...] suspected to have Coronavirus/COVID-19? No / Unsure 07/15/2022 2:14 PM BIOMEDICAL ANALYTICAL SCIENTIST documented as of this encounter Last Filed Vital Signs Vital Sign Reading Time Taken Comments Blood Pressure - - Pulse - - Temperature - - Respiratory Rate - - Oxygen Saturation - - Inhaled Oxygen Concentration - - Weight 84.4 kg (186 lb) 07/15/2022 2:25 PM BIOMEDICAL ANALYTICAL SCIENTIST Height 177.8 cm (5' 10) 07/15/2022 2:25 PM BIOMEDICAL ANALYTICAL SCIENTIST Body Mass Index 26.69 07/15/2022 2:25 PM BIOMEDICAL ANALYTICAL SCIENTIST documented in this encounter Progress Notes * Maximo Lara MD - 07/15/2022 2:30 PM CST Chief Complaint: Postop Followup (DOS 07/03/2022 Open reduction internal fixation RIGHT distal radius fracture usinga Mary volar locking plate) History of Present Illness: Ernestine Salinas is a 81-year-old female who presents to the office for Postop Followup (DOS 07/03/2022 Open reduction internal fixation RIGHT distal radius fracture using a Mary volar locking plate) Patient comes in the office today for Post Op Follow up of the RIGHT distal radius. She states has minium pain. She denies any bruising and swelling. She denies any numbness and tingling. She states has used ice the first couple of days after surgery. She states elevates at night. She states takes Tramadol and 800mg ibuprofen with good relief. She states only took the Hydrocodone once, patient states made her dizzy. She states uses a cane for ambulation. She is RIGHT hand dominant. She denies any night pain. She state snot in PT. Patient tolerated splint being removed well. ROS: See HPI for pertinent positives Problem List: Patient Active Problem List Diagnosis ??? Strain of muscle, fascia and tendon of other parts of biceps, right arm, initial encounter ??? Arthritis of right acromioclavicular joint ??? Bone lesion ??? Osteoporosis ??? Cervical pain ??? Pain of right hip joint ??? Colon wall thickening ??? Hammer toe ??? Hyperlipidemia ??? Incomplete tear of right rotator cuff ??? Lesion of adrenal gland (CMS/HCC) ??? Lumbar back pain ??? Lumbar radiculopathy, chronic ??? Lumbosacral radiculopathy ??? Myalgia ??? Neuropathy ??? Nontraumatic complete tear of right rotator cuff ??? Osteoarthritis of right glenohumeral joint ??? Ovarian cyst ??? Pain in right shoulder ??? Renal lesion ??? Rotator cuff arthropathy of left shoulder ??? Spinal stenosis ??? Status post osteotomy ??? Ulnar nerve compression, right ??? Other polyneuropathy ??? Other closed fracture of distal end of right radius, initial encounter History: Past Medical History: Diagnosis Date ??? Anxiety ??? Depression ??? DJD (degenerative joint disease) ??? Hyperlipidemia ??? Memory changes ??? Neuropathy ??? Osteoporosis ??? Spinal stenosis Past Surgical History: Procedure Laterality Date ??? COLONOSCOPY N/A 12/23/2021 COLONOSCOPY WITH POLYPECTOMY performed by Cricket Hung MD at [facility] OR ??? EYE SURGERY ??? PARTIAL HIP REPLACEMENT Right Family History Problem Relation Name Age of Onset ??? Dementia Mother ??? Lung Cancer Father ??? Breast Cancer Sister 50 Family Status Relation Name Status ??? Mother ??? Father ??? Sister (Not Specified) Social History Socioeconomic History ??? Marital status: Tobacco Use ??? Smoking status: Former ??? Smokeless tobacco: Never Vaping Use ??? Vaping Use: Never used Substance and Sexual Activity ??? Alcohol use: No ??? Drug use: No ??? Sexual activity: Never Medications: Current Outpatient Medications: ??? acetaminophen 500 MG tablet, Take 500 mg by mouth every 6 (six) hours as needed for Pain., Disp: , Rfl: ??? aspirin 81 MG tablet, Take 81 mg by mouth., Disp: , Rfl: ??? atorvastatin 40 MG tablet, Take 40 mg by mouth nightly at bedtime., Disp: , Rfl: ??? donepezil 10 MG Tab, Take 1 tablet by mouth daily., Disp: , Rfl: ??? duloxetine 60 MG capsule, Take 60 mg by mouth daily., Disp: , Rfl: ??? gabapentin 300 MG capsule, Take 1 capsule (300 mg total) by mouth 2 (two) times daily., Disp: 180 capsule, Rfl: 1 ??? ibuprofen (MOTRIN) 800 MG tablet, Take 1 tablet (800 mg total) by mouth every 8 (eight) hours as needed for Pain., Disp: 90 tablet, Rfl: 0 ??? Melatonin 10 MG Tab, Take 5 mg by mouth nightly at bedtime., Disp: , Rfl: ??? memantine 10 MG tablet, Take 10 mg by mouth daily., Disp: , Rfl: ??? [place]-3 Fatty Acids (FISH OIL PEARLS) 300 MG Cap, Take 1,000 Units by mouth daily., Disp: , Rfl: ??? raloxifene 60 MG tablet, Take 1 tablet by mouth daily., Disp: , Rfl: ??? traMADol 50 MG tablet, Take 50 mg by mouth 4 (four) times daily. Indications: Chronic Pain, Disp: , Rfl: 2 ??? vitamin D3, cholecalciferol, 1000 UNIT Tab tablet, 2,000 Units daily., Disp: , Rfl: ??? HYDROcodone-acetaminophen (NORCO) 5-325 MG tablet, Take 1-2 tablets by mouth every 6 (six) hours as needed for Pain. Indications: Acute Pain < 7 Day Supply (Patient not taking: Reported on 07/15/2022), Disp: 15 tablet, Rfl: 0 No Known Allergies Objective: Body mass index is 26.69 kg/m??. Last Recorded Weight 07/15/22 1425 Weight: 84.4 kg (186 lb) Physical exam: Constitutional: Alert and in no acute distress. Neurological: The patient was oriented to person, place, and time. Eyes: The sclera and conjunctiva were normal ENT: Hearing was normal. Neck: The appearance of the neck was normal. Cardiovascular: Normal pulses. Pulmonary: No respiratory distress. Skin: No injuries or skin lesion. Musculoskeletal: Right upper extremity splint was removed and sutures removed. She has a small openarea in the center of the incision and this was reinforced with benzoin and Steri-Strips. No erythema or drainage is present and she is neurovascularly intact with excellent finger range of motion Results: X-ray demonstrates very nice alignment of her right distal radius fracture with good hardware positioning on the volar aspect of the wrist Assessment: Encounter Diagnose(s) ICD-10-CM ICD-9-CM SNOMED CT(R) 1. Orthopedic aftercare Z47.89 V54.9 FOLLOW-UP STATUS Procedure: Procedure: Cast application Material: 2 inch Fiberglass using 4 rolls Type: Short arm cast. Patient Status: neurovascular exam after splint/cast application was unchanged. Follow up: Ernestine Mike Brad was instructed to follow up in 4 weeks. Plan: I placed the patient in a short arm cast and have reviewed activity restrictions. She will return in 4 weeks for cast removal and x-rays Follow up: Return in about 4 weeks (around 08/12/2022). MAXIMO LARA MD EDICAL ANALYTICAL SCIENTIST documented in this encounter Plan of Treatment Not on file documented as of this encounter Visit Diagnoses Diagnosis Orthopedic aftercare- Primary Unspecified orthopedic aftercare documented in this encounter Care Teams Contract Lead Relationship Specialty Start Date End Date Orlando Cortez MD [address] [place] [phone] PCP - General FAMILY PRACTICE 06/27/18 documented as of this encounter
--- OUTSIDE RECORDS SUMMARY | 2024-07-15 03:06 | XMS_ITS | Encounter Summary ---
Author Organization [facility] Address [facility]. [place], [place] [id number] [place] [address] Care Team Providers Care Pipe Setter Name Role Phone Orlando Cortez MD Primary Care Provider [phone] Encounter Details Date Type Department Care Team (Latest Contact Info) Description 03/28/2024 Travel Social History Tobacco Use Types Packs/Day [...] on filedocumented in this encounter Care Teams Pipe Setter Relationship Specialty Start Date End Date Orlando Cortez MD [address] [place] [phone] PCP - General FAMILY PRACTICE 06/27/18 documented as of this encounter
--- OUTSIDE RECORDS SUMMARY | 2024-07-15 03:06 | XMS_ITS | Encounter Summary ---
Author Organization [facility] Address [facility] [place], [place] [address] [place] [address] Care Team Providers Care Hazmat Cdl A Driver Name Role Phone Orlando Medina MD Primary Care Provider [phone] Reason for Referral * Imaging (Routine) - New Request Specialty Diagnoses / Procedures Referred By Contac t Referred To Contact RADIOLOGY Diagnoses Visit for screening mammogram Procedures MG SCREENING W Orlando Morgan MD [address] [place] [phone] Phone: tel: fax: Referral ID Status Reason Start Date Expiration Date V isits Requested Visits Authorized [id number] New Request 03/23/2024 05/23/2025 1 1 Reason for Visit * Imaging (Routine) - New Request Specialty Diagnoses / Procedures Referred By Contac t Referred To Contact RADIOLOGY Diagnoses Visit for screening mammogram Procedures MG SCREENING W Orlando Morgan MD [address] [place] [phone] Phone: tel: fax: Referral ID Status Reason Start Date Expiration Date V isits Requested Visits Authorized [id number] New Request 03/23/2024 05/23/2025 1 1 Encounter Details Date Type Department Care Team (Latest Contact Info) Description 03/28/2024 1:24 PM CDT - 03/28/2024 3:[address] PM [address]T Hospital Encounter [facility] [address] [place] [address] Orlando Medina MD [address] [place] [phone] Discharge Disposition: Home or Self Care (Routine [...] tablet Take 10 mg by mouth daily. [place]-3 Fatty Acids (FISH OIL PEARLS) 300 MG [...] MG SCREENING W MA[place]OGANY TARA DIGI Routine 03/28/2024 2:01 PM CDT Visit for screening mammogram documented in this encounter Results * MG SCREENING W [place] TARA DIGI (03/28/2024 2:01 PM CDT) Anatomical Region Laterality Modality Breast Bilateral Mammography 03/28/2024 2:00 PM CDT Impressions 03/28/2024 2:00 PM CDT IMPRESSION: No suspicious change since the previous exams. Recommendation: 1: Routine Screening ??Bilateral ??in 1 Year Assessment: ACR BI-RADS 2 - BENIGN FINDING(S) Ordered By: ORLANDO MEDINA Interpreted By: Jesus Arizmendi MD, 03/28/2024 2:00 PM Narrative 03/28/2024 2:[address] PM [address] [place] [address] Examination: Digital screening mammogram with CAD. Clinical history: Asymptomatic patient presents for routine screening. Comparison: 01/19/2023, 10/01/2021, 02/09/2017, 02/04/2016. Technique: Bilateral digital mammograms. [...] followup in one year would seem adequate. us Orlando Medina MD MAMMO Final Resul t documented in this encounter Visit Diagnoses Diagnosis Visit for screening mammogram Other screening mammogram documented in this encounter Care Teams Hazmat Cdl A Driver Relationship Specialty Start Date End Date Orlando Medina MD [address] [place] [phone] PCP - General FAMILY PRACTICE 06/27/18 documented as of this encounter
--- OUTSIDE RECORDS SUMMARY | 2024-07-15 03:06 | XMS_ITS | Encounter Summary ---
Author Organization [facility] Address [facility] [place] [address] [place] [address] Care Team Providers Care Resident Advisor Name Role Phone Orlando Cortez MD Primary Care Provider [phone] Reason for Referral * Imaging (Emergency) - New Request Specialty Diagnoses / Procedures Referred By Contac t Referred To Contact RADIOLOGY Procedures CT CERV SPINE WO CON Daphney Means DO [address] [place] [address] Phone: tel: fax: Referral ID Status Reason Start Date Expiration Date V isits Requested Visits Authorized [id number] New Request 03/28/2024 03/28/2025 1 1 * Imaging (Emergency) - New Request Specialty Diagnoses / Procedures Referred By Contac t Referred To Contact RADIOLOGY Procedures CT FACIAL BONES WO CON Daphney Means DO [address] [place] [address] Phone: tel: fax: Referral ID Status Reason Start Date Expiration Date V isits Requested Visits Authorized [id number] New Request 03/28/2024 03/28/2025 1 1 * Imaging (Urgent) - New Request Specialty Diagnoses / Procedures Referred By Mecca alfaro Referred To Contact RADIOLOGY Procedures CT CHEST WO CON Daphney Means DO [address] [place] [address] Phone: tel: fax: Referral ID Status Reason Start Date Expiration Date V isits Requested Visits Authorized [id number] New Request 03/28/2024 03/28/2025 1 1 Reason for Visit * Reason Comments Fall Encounter Details Date Type Department Care Team (Late st Contact Info) Description 03/28/2024 3:24 PM CDT - 03/28/2024 6:00 PM CDT [facility] [place] [address] Daphney Means DO [address] [place] [id number] Fall Discharge Disposition: Home or Self Care (Routine [...] Sign Reading Time Taken Comments Blood Pressure 154/96 03/28/2024 2:50 PM CDT Pulse 56 03/28/2024 2:50 PM CDT Temperature 36.3 ??C (97.3 ??F) 03/28/2024 2:50 PM CD T Respiratory Rate 18 03/28/2024 2:50 PM CDT Oxygen Saturation 96% 03/28/2024 2:50 PM CDT Inhaled Oxygen Concentration - - Weight 81.6 kg (180 lb) 03/28/2024 2:50 PM CDT Height 180.3 cm (5' 11) 03/28/2024 2:50 PM CDT Body Mass Index 25.1 03/28/2024 2:50 PM CDT documented in this encounter Discharge Instructions * Discharge Instructions* Daphney Means DO - 03/28/2024 5:52 PM CDT Nasal precautions for the next weeks: -No blowing your nose -No bending, lifting greater than 15 lbs, or straining, this includes for a bowl movement, which may necessitate a stool softener. -No using a straw, as this can increase pressure within the nose -If you must sneeze, do so with the mouth open -Use nasal saline spray every two hours while awake, more as needed for nasal moisture * Attachments The following attachments cannot be sent through Care Everywhere. * Nose Fracture Discharge Instructions (Qatari) documented in this encounter Medications at Time [...] tablet Take 10 mg by mouth daily. [place]-3 Fatty Acids (FISH OIL PEARLS) 300 MG Cap Take 1,000 Units by mouth daily. 11/17/2017 raloxifene 60 MG tablet Take 1 tablet by mouth daily. 01/06/2018 traMADol 50 MG tabletIndications :Chronic Pain Take 50 mg by mouth 4 (four) times daily. Indications: Chronic Pain 2 01/18/2018 vitamin D3, cholecalciferol, 1000 UNIT Tab tablet 2,000 Units daily. 04/07/2021 documented as of this encounter ED Notes * Jyoti Parry RN - 03/28/2024 4:40 PM CDT Pt aware that awaiting ct reports. No needs voiced. Pt daughter at bedside. * Daphney Means, - 03/28/2024 3:54 PM CDT Chief Complaint Chief Complaint Patient presents with ??? Fall History of Present Illness Ms Salinas is an 83 year old female with a history of dementia, anxiety/depression, HTL, and osteoporosis presenting with superficial abrasion to her nasal bridge after a ground level fall. Was walking on the sidewalk outside her house with her cane when she lost her footing and fell forward. No L OC per daughter. Patient denies any acute discomfort. No headache or neck pain. No new weakness numbness or paresthesias. Has been ambulatory with her cane since. Medical History ALLERGIES: No Known Allergies MEDICATIONS: Prior to Admission medications Medication Sig Start Date End Date Taking? Authorizing Provider acetaminophen 500 MG tablet Take 500 mg by mouth every 6 (six) hours as needed for Pain. Doc [facility] aspirin 81 MG tablet Take 81 mg by mouth. Doc [facility] atorvastatin 40 MG tablet Take 40 mg by mouth nightly at bedtime. 12/02/15 Doc [facility] donepezil 10 MG Tab Take 1 tablet by mouth daily. 11/17/17 [facility] duloxetine 60 MG capsule Take 60 mg by mouth daily. Doc [facility] gabapentin 300 MG capsule Take 1 capsule (300 mg total) by mouth 2 (two) times daily. 02/17/21 Joselito Kim MD HYDROcodone-acetaminophen (NORCO) 5-325 MG tablet Take 1-2 tablets by mouth every 6 (six) hours as needed for Pain. Indications: Acute Pain < 7 Day Supply 07/03/22 Maximo Lara MD ibuprofen (MOTRIN) 800 MG tablet Take 1 tablet (800 mg total) by mouth every 8 (eight) hours as needed for Pain. 07/02/22 PHILL Hurtado-WILLARD Melatonin 10 MG Tab Take 5 mg by mouth nightly at bedtime. 11/17/17 [facility] memantine 10 MG tablet Take 10 mg by mouth daily. Doc [facility] [place]-3 Fatty Acids (FISH OIL PEARLS) 300 MG Cap Take 1,000 Units by mouth daily. 11/17/17 Doc [facility] raloxifene 60 MG tablet Take 1 tablet by mouth daily. 01/06/18 Doc [facility] traMADol 50 MG tablet Take 50 mg by mouth 4 (four) times daily. Indications: Chronic Pain 01/18/18 [facility] vitamin D3, cholecalciferol, 1000 UNIT Tab tablet 2,000 Units daily. 04/07/21 Doc [facility] PAST MEDICAL HISTORY: Past Medical History: Diagnosis Date ??? Anxiety ??? Depression ??? DJD (degenerative joint disease) ??? Hyperlipidemia ??? Memory changes ??? Neuropathy ??? Osteoporosis ??? Spinal stenosis PAST SURGICAL HISTORY: Past Surgical History: Procedure Laterality Date ??? COLONOSCOPY N/A 12/23/2021 COLONOSCOPY WITH POLYPECTOMY performed by Cricket Hung MD at [facility] OR ??? EYE SURGERY ??? PARTIAL HIP REPLACEMENT Right FAMILY HISTORY: Family History Problem Relation Name Age of Onset ??? Dementia Mother ??? Lung Cancer Father ??? Breast Cancer Sister 50 SOCIAL HISTORY: Social History Tobacco Use ??? Smoking status: Former ??? Smokeless tobacco: Never Vaping Use ??? Vaping status: Never Used Substance Use Topics ??? Alcohol use: No ??? Drug use: No Review of Systems Review of Systems HENT: Abrasion over nasal bridge Physical Exam Filed Vitals: 03/28/24 1450 BP: (!) 154/96 Pulse: (!) 56 Resp: 18 Temp: 97.3 ??F (36.3 ??C) TempSrc: Temporal SpO2: 96% Weight: 81.6 kg (180 lb) Height: 1.803 m (5' 11) Physical Exam Vitals and nursing note reviewed. Constitutional: General: She is not in acute distress. Appearance: She is normal weight. She is not toxic-appearing. HENT: Nose: Comments: Nasal bridge swelling and tenderness to palpation. Superficial abrasion over nasal bridge. No septal hematoma. No bleeding from nares. Mouth/Throat: Mouth: Mucous membranes are moist. Pharynx: Oropharynx is clear. Eyes: Extraocular Movements: Extraocular movements intact. Conjunctiva/sclera: Conjunctivae normal. Pupils: Pupils are equal, round, and reactive to light. Cardiovascular: Rate and Rhythm: Normal rate. Pulses: Normal pulses. Pulmonary: Effort: Pulmonary effort is normal. Abdominal: General: Abdomen is flat. Palpations: Abdomen is soft. Tenderness: There is no abdominal tenderness. Musculoskeletal: General: No tenderness or deformity. Normal range of motion. Cervical back: Normal range of motion. No tenderness. Skin: General: Skin is warm and dry. Comments: Nasal abrasion Neurological: Mental Status: She is alert. Comments: Oriented to person and place, at baseline per daughter Diagnostic Studies / Procedures ELECTROCARDIOGRAMS: No results found for this visit on 03/28/24. LABORATORY STUDIES: No results found for this visit on 03/28/24. IMAGING STUDIES CT CHEST WO CON Final Result by User, [id number] (03/28 1718) [address] [place] [address] CLINICAL INDICATION: 83-year-old female. Reason for examination: Fall .03/28/2024 4:22 PM, Geraldo Sewell M: Pt states tripped over ledge and fell face firt in the grass. Pt denies any pain at all. TECHNIQUE: CT of the chest is obtained at 3 mm increments without the use of oral or intravenous contrast. Images obtained from the level of clavicles to the upper abdomen. Additional coronal and sagittal reconstructions were performed. .Dose lowering technique was used for this study which may include, but is not limited to, dose reduction techniques, automated exposure control, use of iterative reconstruction and ALARA (As low As Reasonably Achievable)/Image Gently techniques. COMPARISON: CT chest abdomen pelvis with contrast 11/29/2017 CT cervical spine obtained today with this study DEXA bone density 10/01/2021. Osteopenia Nuclear medicine whole body bone scan 11/09/2017 FINDINGS: No pneumothorax. No CT findings that would indicate pneumonia. There is no pleural effusion or consolidation. No findings of pulmonary edema. No mediastinal or hilar lymphadenopathy. No axillary lymphadenopathy. Stable aneurysmal dilatation ascending aorta measuring 41 mm greatest diameter unchanged since 2018. Stable diffuse ectasia descending aorta measuring 30 mm greatest diameter (upper limits of normal). No para-aortic fluid in the chest. Stable long horizontal segment of the descending aorta. No calcific or atheromatous disease in the thoracic or suprarenal aorta.. Moderate plaque at the ostia of single right and single left renal artery slightly increased since 2018; now with mild, 20-25% narrowing of each renal artery. Normal caliber 3 separate great vessels without atherosclerotic or atheromatous disease. Normal heart size. No pericardial effusion. No coronary artery calcifications. The included portions of the liver and spleen and the right adrenal gland and pancreas are unremarkable. Stable 1.2 cm nodular enlargement of the left adrenal gland no change in the density (CT HU 18 ) or size since 2018; likely stable adrenal adenoma. No follow-up imaging is recommended per consensus recommendations based on imaging criteria and interval stability. Stable cystic structure inferior pole left kidney only partially included in this study. BONE WINDOW IMAGING: The sternum and scapula are intact bilaterally. Each clavicle and each shoulder intact and the AP projection. No acute right or left rib fracture. Stable hemangioma T12 vertebral segment. Stable intervertebral disc space narrowing bridging osteophytosis facet hypertrophy L1-2. No evidence of acute fracture or traumatic malalignment in the thoracic spine or the upper lumbar spine. IMPRESSION: 1. No acute cardiac or pulmonary abnormality. 2. Stable aneurysm dilatation a sending aorta measuring 41 mm greatest diameter. 3. Stable diffuse ectasia ascending aorta measuring 30 mm greatest diameter 4. No evidence of thoracic aortic dissection. 5. No acute fracture in the bony thorax. 6. No acute fracture in the thoracic or upper lumbar spine. Referred By: Interpreted By: Malinda Dodson DO, 03/28/2024 4:[address] FACIAL BONES WO CON Final Result by User, [id number] (03/28 1632) [facility] [address] [place] [address] EXAMINATION: CT examinations of the facial bones and cervical spine without contrast CLINICAL HISTORY: Face and neck trauma. COMPARISON: Cervical spine CT 06/28/2018 TECHNIQUE: CT examinations of the facial bones and cervical spine were performed without contrast, with axial and multiplanar reformatted images obtained. A dose lowering technique was used for this procedure, which may include, but is not limited to, dose reduction technique, automated exposure control, the use of iterative reconstruction, and ALARA (As Low As Reasonably Achievable) / Image Gently techniques. FINDINGS: FACIAL BONES: Mildly displaced nasal bone fractures, possibly chronic. Clinical correlation advised. Otherwise the orbital hill, paranasal sinuses, zygomatic arches, pterygoid plates, and mandible are without evidence of acute fracture. Anterior cranial fossa floor and cribriform plate intact. No intraorbital hematoma or extraocular muscle entrapment. Paranasal sinuses are clear. Partially imaged portions of the intracranial compartment reveal small vessel disease, intracranial vascular calcifications, and volume loss. Mastoid air cells and middle ear cavities are clear. CERVICAL SPINE CT: Stable multilevel anterolisthesis of C3 on C4 more so than C4 on C5 and C7 on T1. Retrolisthesis of C5 on C6 and C6 on C7. Reversal of the mid to lower cervical lordosis. Slight rotation of C1 relative to C2. Otherwise the cervical vertebral alignment, vertebral body heights, and facet alignment are maintained. No definite acute fractures identified in the cervical spine. Multilevel degenerative changes are evident in the cervical spine with disc degeneration, endplate/uncovertebral osteophytes, and facet noted. Ankylosis of the C5-C6 disc space and C2-C4 facets. Partial ankylosis of the C3-C4 disc. Greatest loss of disc height at C6-C7 with intradiscal vacuum cleft phenomenon and reactive endplate sclerosis. Imaged portions of the soft tissues reveal atherosclerotic vascular calcifications. IMPRESSION: FACIAL BONES: 1. Mildly displaced nasal bone fractures, possibly chronic. Clinical correlation advised. 2. No other acute maxillofacial fractures elsewhere. CERVICAL SPINE CT: 1. No definite acute fractures identified in the cervical spine. 2. Degenerative changes. Referred By: Interpreted By: Eron Yi MD, 03/28/2024 4:[address] CERV SPINE WO CON Final Result by User, [id number] (03/28 163) [place] [id number] [place] [address] EXAMINATION: CT examinations of the facial bones and cervical spine without contrast CLINICAL HISTORY: Face and neck trauma. COMPARISON: Cervical spine CT 06/28/2018 TECHNIQUE: CT examinations of the facial bones and cervical spine were performed without contrast, with axial and multiplanar reformatted images obtained. A dose lowering technique was used for this procedure, which may include, but is not limited to, dose reduction technique, automated exposure control, the use of iterative reconstruction, and ALARA (As Low As Reasonably Achievable) / Image Gently techniques. FINDINGS: FACIAL BONES: Mildly displaced nasal bone fractures, possibly chronic. Clinical correlation advised. Otherwise the orbital hill, paranasal sinuses, zygomatic arches, pterygoid plates, and mandible are without evidence of acute fracture. Anterior cranial fossa floor and cribriform plate intact. No intraorbital hematoma or extraocular muscle entrapment. Paranasal sinuses are clear. Partially imaged portions of the intracranial compartment reveal small vessel disease, intracranial vascular calcifications, and volume loss. Mastoid air cells and middle ear cavities are clear. CERVICAL SPINE CT: Stable multilevel anterolisthesis of C3 on C4 more so than C4 on C5 and C7 on T1. Retrolisthesis of C5 on C6 and C6 on C7. Reversal of the mid to lower cervical lordosis. Slight rotation of C1 relative to C2. Otherwise the cervical vertebral alignment, vertebral body heights, and facet alignment are maintained. No definite acute fractures identified in the cervical spine. Multilevel degenerative changes are evident in the cervical spine with disc degeneration, endplate/uncovertebral osteophytes, and facet noted. Ankylosis of the C5-C6 disc space and C2-C4 facets. Partial ankylosis of the C3-C4 disc. Greatest loss of disc height at C6-C7 with intradiscal vacuum cleft phenomenon and reactive endplate sclerosis. Imaged portions of the soft tissues reveal atherosclerotic vascular calcifications. IMPRESSION: FACIAL BONES: 1. Mildly displaced nasal bone fractures, possibly chronic. Clinical correlation advised. 2. No other acute maxillofacial fractures elsewhere. CERVICAL SPINE CT: 1. No definite acute fractures identified in the cervical spine. 2. Degenerative changes. Referred By: Interpreted By: Eron Yi MD, 03/28/2024 4:26 PM ED Course / Medical Decision Making Medical Decision Making 83-year-old female presenting with nasal abrasion and pain after GLF BP 154/96 with otherwise unremarkable vitals. Nasal bridge swelling and tenderness to palpation. Superficial abrasion over nasal bridge. No septal hematoma. No bleeding from nares. with an otherwise unremarkable physical exam. Orders: CT head, CT facial bones, CT cervical spine Workup as above discussed with daughter agreeable with this plan. ED Course as of 03/28/241942 Tue Mar 28, [id number] CT FACIAL BONES WO CON IMPRESSION: FACIAL BONES: 1. Mildly displaced nasal bone fractures, possibly chronic. Clinical correlation advised. 2. No other acute maxillofacial fractures elsewhere. CERVICAL SPINE CT: 1. No definite acute fractures identified in the cervical spine. 2. Degenerative changes. [RT] 1751 Resting comfortably in bed [RT] ED Course User Index [RT] Daphney Means DO Clinical Impression Nasal bone fracture (Primary) Ground-level fall Disposition: Discharge Daphney Means DO 03/28/241942 * Canelo Renee RN - 03/28/2024 2:49 PM CDT Pt presents to the er with c/o a fall pts daughter states that she fell on the side striking her face a left knee. Abrasion noted to nose and bruising to left knee. Pt denies any pain documented in this encounter Plan of Treatment Not on file documented as of this encounter Procedures Procedure Name Priority Date/Time Associated Diagnosis Comments CT CHEST WO CON STAT 03/28/2024 4:[address] FACIAL BONES WO CON STAT 03/28/2024 4:[address] CERV SPINE WO CON STAT 03/28/2024 4:19 PM CDT documented in this encounter Results * CT CERV SPINE WO CON (03/28/2024 4:19 PM CDT) Anatomical Region Laterality Modality Spine Computed Tomogra phy 03/28/2024 4:26 PM CDT Impressions 03/28/2024 4:30 PM CDT IMPRESSION: FACIAL BONES: 1. Mildly displaced nasal bone fractures, possibly chronic. Clinical correlation advised. 2. No other acute maxillofacial fractures elsewhere. CERVICAL SPINE CT: 1. No definite acute fractures identified in the cervical spine. 2. Degenerative changes. Referred By: ?? Interpreted By: Eron Yi MD, 03/28/2024 4:26 PM Narrative 03/28/2024 4:30 PM CDT [address] [place] [address] EXAMINATION: CT examinations of the facial bones and cervical spine without contrast CLINICAL HISTORY: Face and neck trauma. COMPARISON: Cervical spine CT 06/28/2018 TECHNIQUE: CT examinations of the facial bones and cervical spine were performed without contrast, with axial and multiplanar reformatted images obtained. A dose lowering technique was used for this procedure, which may include, but is not limited to, dose reduction technique, automated exposure control, the use of iterative reconstruction, and ALARA (As Low As Reasonably Achievable) / Image Gently techniques. FINDINGS: FACIAL BONES: Mildly displaced nasal bone fractures, possibly chronic. Clinical correlation advised. Otherwise the orbital hill, paranasal sinuses, zygomatic arches, pterygoid plates, and mandible are without evidence of acute fracture. Anterior cranial fossa floor and cribriform plate intact. No intraorbital hematoma or extraocular muscle entrapment. Paranasal sinuses are clear. Partially imaged portions of the intracranial compartment reveal small vessel disease, intracranial vascular calcifications, and volume loss. Mastoid air cells and middle ear cavities are clear. CERVICAL SPINE CT: Stable multilevel anterolisthesis of C3 on C4 more so than C4 on C5 and C7 on T1. Retrolisthesis of C5 on C6 and C6 on C7. Reversal of the mid to lower cervical lordosis. Slight rotation of C1 relative to C2. Otherwise the cervical vertebral alignment, vertebral body heights, and facet alignment are maintained. No definite acute fractures identified in the cervical spine. Multilevel degenerative changes are evident in the cervical spine with disc degeneration, endplate/uncovertebral osteophytes, and facet noted. Ankylosis of the C5-C6 disc space and C2-C4 facets. Partial ankylosis of the C3-C4 disc. Greatest loss of disc height at C6-C7 with intradiscal vacuum cleft phenomenon and reactive endplate sclerosis. Imaged portions of the soft tissues reveal atherosclerotic vascular calcifications. Procedure Note Eron Yi MD - 03/28/2024 [facility] [address] [place] [address] EXAMINATION: CT examinations of the facial bones and cervical spinewithout contrast CLINICAL HISTORY: Face and neck trauma. COMPARISON: Cervical spine CT 06/28/2018 TECHNIQUE: CT examinations of the facial bones and cervical spine wereperformed without contrast, with axial and multiplanar reformatted imagesobtained. A dose lowering technique was used for this procedure, which may include,but is not limited to, dose reduction technique, automated exposurecontrol, the use of iterative reconstruction, and ALARA (As Low AsReasonably Achievable) / Image Gently techniques. FINDINGS: FACIAL BONES: Mildly displaced nasal bone fractures, possibly chronic. Clinicalcorrelation advised. Otherwise the orbital hill, paranasal sinuses,zygomatic arches, pterygoid plates, and mandible are without evidence ofacute fracture. Anterior cranial fossa floor and cribriform plate intact.No intraorbital hematoma or extraocular muscle entrapment. Paranasalsinuses are clear. Partially imaged portions of the intracranialcompartment reveal small vessel disease, intracranial vascularcalcifications, and volume loss. Mastoid air cells and middle ear cavitiesare clear. CERVICAL SPINE CT: Stable multilevel anterolisthesis of C3 on C4 more so than C4 on C5 and C7on T1. Retrolisthesis of C5 on C6 and C6 on C7. Reversal of the mid tolower cervical lordosis. Slight rotation of C1 relative to C2. Otherwisethe cervical vertebral alignment, vertebral body heights, and facetalignment are maintained. No definite acute fractures identified in thecervical spine. Multilevel degenerative changes are evident in thecervical spine with disc degeneration, endplate/uncovertebral osteophytes,and facet noted. Ankylosis of the C5-C6 disc space and C2-C4 facets.Partial ankylosis of the C3-C4 disc. Greatest loss of disc height at C6- C7with intradiscal vacuum cleft phenomenon and reactive endplate sclerosis.Imaged portions of the soft tissues reveal atherosclerotic vascularcalcifications. IMPRESSION: FACIAL BONES: 1. Mildly displaced nasal bone fractures, possibly chronic. Clinicalcorrelation advised. 2. No other acute maxillofacial fractures elsewhere. CERVICAL SPINE CT: 1. No definite acute fractures identified in the cervical spine. 2. Degenerative changes. Referred By: Interpreted By: Eron Yi MD, 03/28/2024 4:26 PM us Daphney Arndt Clary DO CT Final Re sult * CT FACIAL BONES WO CON (03/28/2024 4:19 PM CDT) Anatomical Region Laterality Modality Facial Computed Tomogra phy 03/28/2024 4:26 PM CDT Impressions 03/28/2024 4:30 PM CDT IMPRESSION: FACIAL BONES: 1. Mildly displaced nasal bone fractures, possibly chronic. Clinical correlation advised. 2. No other acute maxillofacial fractures elsewhere. CERVICAL SPINE CT: 1. No definite acute fractures identified in the cervical spine. 2. Degenerative changes. Referred By: ?? Interpreted By: Eron Yi MD, 03/28/2024 4:26 PM Narrative 03/28/2024 4:30 PM CDT [address] [place] [address] EXAMINATION: CT examinations of the facial bones and cervical spine without contrast CLINICAL HISTORY: Face and neck trauma. COMPARISON: Cervical spine CT 06/28/2018 TECHNIQUE: CT examinations of the facial bones and cervical spine were performed without contrast, with axial and multiplanar reformatted images obtained. A dose lowering technique was used for this procedure, which may include, but is not limited to, dose reduction technique, automated exposure control, the use of iterative reconstruction, and ALARA (As Low As Reasonably Achievable) / Image Gently techniques. FINDINGS: FACIAL BONES: Mildly displaced nasal bone fractures, possibly chronic. Clinical correlation advised. Otherwise the orbital hill, paranasal sinuses, zygomatic arches, pterygoid plates, and mandible are without evidence of acute fracture. Anterior cranial fossa floor and cribriform plate intact. No intraorbital hematoma or extraocular muscle entrapment. Paranasal sinuses are clear. Partially imaged portions of the intracranial compartment reveal small vessel disease, intracranial vascular calcifications, and volume loss. Mastoid air cells and middle ear cavities are clear. CERVICAL SPINE CT: Stable multilevel anterolisthesis of C3 on C4 more so than C4 on C5 and C7 on T1. Retrolisthesis of C5 on C6 and C6 on C7. Reversal of the mid to lower cervical lordosis. Slight rotation of C1 relative to C2. Otherwise the cervical vertebral alignment, vertebral body heights, and facet alignment are maintained. No definite acute fractures identified in the cervical spine. Multilevel degenerative changes are evident in the cervical spine with disc degeneration, endplate/uncovertebral osteophytes, and facet noted. Ankylosis of the C5-C6 disc space and C2-C4 facets. Partial ankylosis of the C3-C4 disc. Greatest loss of disc height at C6-C7 with intradiscal vacuum cleft phenomenon and reactive endplate sclerosis. Imaged portions of the soft tissues reveal atherosclerotic vascular calcifications. Procedure Note Eron Yi MD - 03/28/[address] [place] [address] EXAMINATION: CT examinations of the facial bones and cervical spinewithout contrast CLINICAL HISTORY: Face and neck trauma. COMPARISON: Cervical spine CT 06/28/2018 TECHNIQUE: CT examinations of the facial bones and cervical spine wereperformed without contrast, with axial and multiplanar reformatted imagesobtained. A dose lowering technique was used for this procedure, which may include,but is not limited to, dose reduction technique, automated exposurecontrol, the use of iterative reconstruction, and ALARA (As Low AsReasonably Achievable) / Image Gently techniques. FINDINGS: FACIAL BONES: Mildly displaced nasal bone fractures, possibly chronic. Clinicalcorrelation advised. Otherwise the orbital hill, paranasal sinuses,zygomatic arches, pterygoid plates, and mandible are without evidence ofacute fracture. Anterior cranial fossa floor and cribriform plate intact.No intraorbital hematoma or extraocular muscle entrapment. Paranasalsinuses are clear. Partially imaged portions of the intracranialcompartment reveal small vessel disease, intracranial vascularcalcifications, and volume loss. Mastoid air cells and middle ear cavitiesare clear. CERVICAL SPINE CT: Stable multilevel anterolisthesis of C3 on C4 more so than C4 on C5 and C7on T1. Retrolisthesis of C5 on C6 and C6 on C7. Reversal of the mid tolower cervical lordosis. Slight rotation of C1 relative to C2. Otherwisethe cervical vertebral alignment, vertebral body heights, and facetalignment are maintained. No definite acute fractures identified in thecervical spine. Multilevel degenerative changes are evident in thecervical spine with disc degeneration, endplate/uncovertebral osteophytes,and facet noted. Ankylosis of the C5-C6 disc space and C2-C4 facets.Partial ankylosis of the C3-C4 disc. Greatest loss of disc height at C6- C7with intradiscal vacuum cleft phenomenon and reactive endplate sclerosis.Imaged portions of the soft tissues reveal atherosclerotic vascularcalcifications. IMPRESSION: FACIAL BONES: 1. Mildly displaced nasal bone fractures, possibly chronic. Clinicalcorrelation advised. 2. No other acute maxillofacial fractures elsewhere. CERVICAL SPINE CT: 1. No definite acute fractures identified in the cervical spine. 2. Degenerative changes. Referred By: Interpreted By: Eron Yi MD, 03/28/2024 4:26 PM us Daphney Means DO CT Final Re sult * CT CHEST WO CON (03/28/2024 4:19 PM CDT) Anatomical Region Laterality Modality Chest Computed Tomogra phy 03/28/2024 4:56 PM CDT Impressions 03/28/2024 5:16 PM CDT IMPRESSION: 1. ??No acute cardiac or pulmonary abnormality. 2. 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 3. 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 ??No evidence of thoracic aortic dissection. 5. ??No acute fracture in the bony thorax. 6. ??No acute fracture in the thoracic or upper lumbar spine. Referred By: ?? Interpreted By: Malinda Dodson DO, 03/28/2024 4:56 PM Narrative 03/28/2024 5:16 PM CDT [place] [id number] [facility] [place] [address] CLINICAL INDICATION: 83-year-old female. Reason for examination: Fall .03/28/2024 4:22 PM, Geraldo Sewell M: Pt states tripped over ledge and fell face firt in the grass. Pt denies any pain at all. TECHNIQUE: CT of the chest is obtained at 3 mm increments without the use of oral or intravenous contrast. ??Images obtained from the level of clavicles to the upper abdomen. ??Additional coronal and sagittal reconstructions were performed. .Dose lowering technique was used for this study which may include, but is not limited to, dose reduction techniques, automated exposure control, use of iterative ??reconstruction and ALARA (As low As Reasonably Achievable)/Image Gently techniques. COMPARISON: CT chest abdomen pelvis with contrast 11/29/2017 CT cervical spine obtained today with this study DEXA bone density 10/01/2021. ??Osteopenia Nuclear medicine whole body bone scan 11/09/2017 FINDINGS: No pneumothorax. ??No CT findings that would indicate pneumonia. ??There is no pleural effusion or consolidation. ??No findings of pulmonary edema. No mediastinal or hilar lymphadenopathy. ??No axillary lymphadenopathy. Stable aneurysmal dilatation ascending aorta measuring 41 mm greatest diameter unchanged since 2018. ??Stable diffuse ectasia descending aorta measuring 30 mm greatest diameter (upper limits of normal). ??No para-aortic fluid in the chest. ??Stable long horizontal segment of the descending aorta. ??No calcific or atheromatous disease in the thoracic or suprarenal aorta.. ??Moderate plaque at the ostia of single right and single left renal artery slightly increased since 2018; now with mild, 20-25% narrowing of each renal artery. ??Normal caliber 3 separate great vessels without atherosclerotic or atheromatous disease. Normal heart size. ??No pericardial effusion. ??No coronary artery calcifications. The included portions of the liver and spleen and the right adrenal gland and pancreas are unremarkable. ??Stable 1.2 cm nodular enlargement of the left adrenal gland no change in the density (CT HU ??18 ) or size since 2018; likely stable adrenal adenoma. ??No follow-up imaging is recommended per consensus recommendations based on imaging criteria and interval stability. ??Stable cystic structure inferior pole left kidney only partially included in this study. BONE WINDOW IMAGING: The sternum and scapula are intact bilaterally. ??Each clavicle and each shoulder intact and the AP projection. ??No acute right or left rib fracture. ??Stable hemangioma T12 vertebral segment. ??Stable intervertebral disc space narrowing bridging osteophytosis facet hypertrophy L1-2. ??No evidence of acute fracture or traumatic malalignment in the thoracic spine or the upper lumbar spine. Procedure Note Malinda Dodson MD - 03/28/2024 [facility] [address] [place] [address] CLINICAL INDICATION: 83-year-old female. Reason for examination: Fall .03/28/2024 4:22 PM, Geraldo Sewell M: Pt states tripped over ledge and fellface firt in the grass. Pt denies any pain at all. TECHNIQUE: CT of the chest is obtained at 3 mm increments without the use of oral orintravenous contrast. Images obtained from the level of clavicles to theupper abdomen. Additional coronal and sagittal reconstructions wereperformed. .Dose lowering technique was used for this study which may include, but isnot limited to, dose reduction techniques, automated exposure control, useof iterative reconstruction and ALARA (As low As ReasonablyAchievable)/Image Gently techniques. COMPARISON: CT chest abdomen pelvis with contrast 11/29/2017 CT cervical spine obtained today with this study DEXA bone density 10/01/2021. Osteopenia Nuclear medicine whole body bone scan 11/09/2017 FINDINGS: No pneumothorax. No CT findings that would indicate pneumonia. There isno pleural effusion or consolidation. No findings of pulmonary edema. No mediastinal or hilar lymphadenopathy. No axillary lymphadenopathy. Stable aneurysmal dilatation ascending aorta measuring 41 mm greatestdiameter unchanged since 2018. Stable diffuse ectasia descending aortameasuring 30 mm greatest diameter (upper limits of normal). Nopara-aortic fluid in the chest. Stable long horizontal segment of thedescending aorta. No calcific or atheromatous disease in the thoracic orsuprarenal aorta.. Moderate plaque at the ostia of single right andsingle left renal artery slightly increased since 2018; now with mild,20-25% narrowing of each renal artery. Normal caliber 3 separate greatvessels without atherosclerotic or atheromatous disease. Normal heart size. No pericardial effusion. No coronary arterycalcifications. The included portions of the liver and spleen and the right adrenal glandand pancreas are unremarkable. Stable 1.2 cm nodular enlargement of theleft adrenal gland no change in the density (CT HU 18 ) or size [id number]; likely stable adrenal adenoma. No follow-up imaging is recommendedper consensus recommendations based on imaging criteria and intervalstability. Stable cystic structure inferior pole left kidney onlypartially included in this study. BONE WINDOW IMAGING: The sternum and scapula are intact bilaterally. Each clavicle and eachshoulder intact and the AP projection. No acute right or left ribfracture. Stable hemangioma T12 vertebral segment. Stable intervertebraldisc space narrowing bridging osteophytosis facet hypertrophy L1-2. Noevidence of acute fracture or traumatic malalignment in the thoracic spineor the upper lumbar spine. IMPRESSION: 1. No acute cardiac or pulmonary abnormality. 2. Stable aneurysm dilatation a sending aorta measuring 41 mm greatestdiameter. 3. Stable diffuse ectasia ascending aorta measuring 30 mm greatestdiameter 4. No evidence of thoracic aortic dissection. 5. No acute fracture in the bony thorax. 6. No acute fracture in the thoracic or upper lumbar spine. Referred By: Interpreted By: Malinda Dodson DO, 03/28/2024 4:56 PM Daphney Means DO CT Final Re sult documented in this encounter Visit Diagnoses Diagnosis Nasal bone fracture- Primary Nasal bones, closed fracture Ground-level fall documented in this encounter Care Teams Resident Advisor Relationship Specialty Start Date End Date Orlando Cortez MD [address] [place] [phone] PCP - General FAMILY PRACTICE 06/27/18 documented as of this encounter
--- OUTSIDE RECORDS SUMMARY | 2024-07-15 03:06 | XMS_ITS | Encounter Summary ---
Author Organization [facility] Address [address] [place] [address]. [place], [place] [id number] [place] [id number] Care Team Providers Care Shingle Packer Name Role Phone Orlando Cortez MD Primary Care Provider Reason for Visit * Reason Comments Postop Followup DOS 07/03/2022 Open reduction internal fixation RIGHT distal radius fracture using a Mary volar locking plate)?? Encounter Details Date Type Department Care Team (Latest Contact Info) Description 08/11/2022 11:30 AM NET FRONT END DEVELOPER Office Visit [facility] [place] [address] [id number] Maximo Lara MD [address] [place] [place] [id number] Postop Followup (DOS 07/03/2022 Open reduction internal fixation RIGHT distal radius fracture using a [place]ina volar locking plate)/??) Social History Tobacco Use Types Packs/Day Years [...] Coronavirus/COVID-19? No / Unsure 08/11/2022 11:28 AM NET FRONT END DEVELOPER documented as of this encounter Last Filed Vital Signs Vital Sign Reading Time Taken Comments Blood Pressure - - Pulse - - Temperature - - Respiratory Rate - - Oxygen Saturation - - Inhaled Oxygen Concentration - - Weight 84.4 kg (186 lb) 08/11/2022 11:31 AM NET FRONT END DEVELOPER Height 177.8 cm (5' 10) 08/11/2022 11:31 AM NET FRONT END DEVELOPER Body Mass Index 26.69 08/11/2022 11:31 AM NET FRONT END DEVELOPER documented in this encounter Progress Notes * Maximo Lara MD - 08/11/2022 11:30 AM CST Chief Complaint: Postop Followup (DOS 07/03/2022 Open reduction internal fixation RIGHT distal radius fracture usinga Mary volar locking plate)/??) History of Present Illness: Ernestine Salinas is a 81-year-old female who presents to the office for Postop Followup (DOS 07/03/2022 Open reduction internal fixation RIGHT distal radius fracture using a [place]ina volar locking plate)/??) Patient comes in the office today for Post Op Follow up of the RIGHT wrist. She states not having much pain. She denies any bruising and swelling. She denies any numbness and tingling. She denies taking any pain medicine. She routinely takes Tramadol. She is RIGHT hand dominant. She is RIGHT hand dominant. She states uses a cane for stability. She denies any night pain. She is retired. Cast to right upper extremity is in excellent condition. Cast was removed without difficulty. Skin intact without abrasions, redness or wounds. Patient tolerated removal well. Patient did have some small drainage where the incision was and the steri strips. ROS: See HPI for pertinent positives Problem [...] POLYPECTOMY performed by Cricket Hung MD at [facility] OR ??? EYE SURGERY ??? PARTIAL [...] daily., Disp: 180 capsule, Rfl: 1 ??? HYDROcodone-acetaminophen (NORCO) 5-325 MG tablet, Take 1-2 tablets by mouth every 6 (six) hours as needed for Pain. Indications: Acute Pain < 7 Day Supply, Disp: 15 tablet, Rfl: 0 ??? ibuprofen (MOTRIN) 800 MG tablet, Take 1 tablet (800 mg total) by mouth every 8 (eight) hours as needed for Pain., Disp: 90 tablet, Rfl: 0 ??? Melatonin 10 MG Tab, Take 5 mg by mouth nightly at bedtime., Disp: , Rfl: ??? memantine 10 MG tablet, Take 10 mg by mouth daily., Disp: , Rfl: ??? [place]-3 Fatty Acids (FISH OIL PEARLS) 300 MG [...] tablet, 2,000 Units daily., Disp: , Rfl: No Known Allergies Objective: Body mass index is 26.69 kg/m??. Last Recorded Weight 08/11/22 1131 Weight: 84.4 kg (186 lb) Physical exam: Constitutional: Alert and in no acute distress. Neurological: The patient was oriented to person, place, and time. Eyes: The sclera and conjunctiva were normal ENT: Hearing was normal. Neck: The appearance of the neck was normal. Cardiovascular: Normal pulses. Pulmonary: No respiratory distress. Skin: No injuries or skin lesion. Musculoskeletal: Cast was removed from the right wrist and overall looks great. She has excellent range of motion of her fingers with some mild wrist stiffness. Her incision is mostly healed with a very small area of exuberant granulation tissue at the proximal incision line Results: X-ray demonstrates good positioning of her volar wrist plate and satisfactory healing is appreciated with good alignment of her injury Assessment: Encounter Diagnose(s) ICD-10-CM ICD-9-CM SNOMED CT(R) 1. Orthopedic aftercare Z47.89 V54.9 FOLLOW-UP STATUS Plan: I used a silver nitrate stick to chemically cauterize the granulation tissue and a dressing was applied. She is going to do exercises on her own at this point considering her very good range of motion in the office today. I will see her back in 2 weeks for reevaluation Follow up: Return in about 2 weeks (around 08/25/2022). MAXIMO LARA MD FRONT END DEVELOPER documented in this encounter Plan of Treatment Not on file documented as of this encounter Visit Diagnoses Diagnosis Orthopedic aftercare- Primary Unspecified orthopedic aftercare documented in this encounter Care Teams Shingle Packer Relationship Specialty Start Date End Date Orlando Cortez MD [address] [place] [phone] PCP - General FAMILY PRACTICE 06/27/18 documented as of this encounter
--- OUTSIDE RECORDS SUMMARY | 2024-07-15 03:06 | XMS_ITS | Clinical Summary ---
Author Organization [facility] Address [facility] [place] [address] [place] [address] Care Team Providers Care Fisheries Technician Name Role Phone Orlando Medina MD Primary Care Provider Allergies No known active allergies Medications aspirin 81 MG tablet Take 81 mg by mouth. Active atorvastatin 40 MG tablet Take 40 mg by mouth nightly at bedtime. 12/02/2015 Active donepezil 10 MG Tab Take 1 tablet by mouth daily. 11/17/2017 Active Melatonin 10 MG Tab Take 5 mg by mouth nightly at bedtime. 11/17/2017 Active [place]-3 Fatty Acids (FISH OIL PEARLS) 300 MG Cap Take 1,000 Units by mouth daily. 11/17/2017 Active raloxifene 60 MG tablet Take 1 tablet by mouth daily. 01/06/2018 Active traMADol 50 MG tabletIndicatio ns:Chronic Pain Take 50 mg by mouth 4 (four) times daily. Indications: Chronic Pain 2 01/18/2018 Active duloxetine 60 MG capsule Take 60 mg by mouth daily. Active memantine 10 MG tablet Take 10 mg by mouth daily. Active gabapentin 300 MG capsuleIndicati ons:Neuropathy Take 1 capsule (300 mg total) by mouth 2 (two) times daily. 180 capsule 1 02/17/2021 Active acetaminophen 500 MG tablet Take 500 mg by mouth every 6 (six) hours as needed for Pain. Active vitamin D3, cholecalciferol , 1000 UNIT Tab tablet 2,000 Units daily. 04/07/2021 Active ibuprofen (MOTRIN) 800 MG tabletIndicatio ns:Other closed fracture of distal end of right radius, initial encounter Take 1 tablet (800 mg total) by mouth every 8 (eight) hours as needed for Pain. 90 tablet 07/02/2022 Active HYDROcodone-allie taminophen (NORCO) 5-325 MG tabletIndicatio ns:Acute Pain < 7 Day Supply Take 1-2 tablets by mouth every 6 (six) hours as needed for Pain. Indications: Acute Pain < 7 Day Supply 15 tablet 07/03/2022 Active Active Problems Problem Noted Date Diagnosed Date Other closed fracture of dis karena end of right radius, initial encounter 07/02/2022 Other polyneuropathy 10/27/2018 Ovarian cyst 01/06/2018 Colon wall thickening 12/02/2017 Lesion of adrenal gland ([facility]) 2017 Renal lesion 12/02/2017 Bone lesion 11/25/2017 Rotator cuff arthropathy of left shoulder 2017 Strain of muscle, fascia and tendon of other parts of biceps, right arm, initial encounter 04/26/2017 Status post osteotomy 03/09/2017 Hammer toe 01/19/2017 Incomplete tear of right rotator cuff 10/27/2016 Ulnar nerve compression, right 10/27/2016 Arthritis of right acromioclavicular joint 10/14 Nontraumatic complete tear of right rotator cuff 10/14/2016 Osteoarthritis of right glenohumeral joint 10/14 Pain in right shoulder 10/12/2016 Cervical pain 04/13/2016 Lumbar radiculopathy, chronic 04/13/2016 Lumbar back pain 04/06/2016 Pain of right hip joint 02/03/2016 Lumbosacral radiculopathy 11/21/2015 Myalgia 11/21/2015 Spinal stenosis 10/29/2015 Neuropathy 12/21/2014 Osteoporosis 03/29/2008 Hyperlipidemia 03/29/2008 Resolved Problems Problem Noted Date Diagnosed Date Resolved Date Status post orthopedic surge ry, follow-up exam 06/26/2016 03/22/2020 Encounter for preventive health examination 02/03/2016 03/22/2020 Family History Medical History Relation Comments Lung Cancer Father Dementia Mother Breast Cancer Sister Relation Status Comments Father Mother Sister Social History Tobacco Use Types Packs/Day Years Used Date Smoking Tobacco: Former Smokeless Tobacco: Never Tobacco Cessation:Counseling Given: Not Answered Alcohol Use Standard Drinks/Week Comments No 0 [...] Mass Index 25.1 03/28/2024 2:50 PM CDT Plan of Treatment Health Maintenance Due Date Last Done Comments DTaP, Tdap and Td Vaccines (1 - Tdap) 1961 Zoster Vaccines (1 of 2) 1992 Annual Medicare Wellness Visit 10/16/2007 RSV Immunization or 60+ Years (1 - 1-dose 75+ series) 2017 Pneumococcal Vaccine: 65+ Years (2 of 2 - PCV) 04/01/2019 04/01/2018 COVID-19 Vaccine ( season) 2024 11/21/2021, 05/23/2021, 11/19/2020, Additional history exists Influenza Adult (#1) 2024 05/15/2020, 04/26/2019, 04/01/2018, Additional history exists Dexa Scan (General) Completed 04/06/2024, 10/01/2021, 11/27/2015 Meningococcal Vaccine Aged Out No jacob augustine eligible based on patient's age to complete this topic RSV Immunizations Under 20 Months Aged Out No longer eligible based on patient's age to complete this topic Medical Devices Implanted Type Area Crematorium Operator Device Identifier Shelf Expiration Date Model / Serial / Lot Plate Standard [id number] Titanium Lock Variax Bone Radial Right Distal Volar - [id number] Implanted:Qty: 1 on 07/03/2022 by Maximo Lara MD at [facility] Plate Right: Radius [employer] [id number] / / Screw Bone 2.7mm 24mm Variax Titanium T7 Full Thread Radius Distal Lock Nonsterile - [id number] Implanted:Qty: 1 on 07/03/2022 by Maximo Lara MD at [facility] Screw Right: Radius [employer] [id number] / / Screw Wendel Bone 2.7mm X 16mm - [id number] Implanted:Qty: 1 on 07/03/2022 by Maximo Lara MD at [facility] Screw Right: Radius [employer] [id number] / / 2.4 Locking Screw Implanted:Qty: 3 on 07/03/2022 by Maximo Lara MD at [facility] Right: Radius [employer] [id number] / / 2.7 Locking Screw Implanted:Qty: 2 on 07/03/2022 by Maximo Lara MD at [facility] Right: Radius [employer] [id number] / / 2.4 Locking Screw Implanted:Qty: 2 on 07/03/2022 by Maximo Lara MD at [facility] Right: Radius [employer] [id number] / / 2.4 Locing Screw Implanted:Qty: 1 on 07/03/2022 by Maximo Lara MD at [facility] Right: Radius [employer] [id number] / / 2.7 Locking Screw Implanted:Qty: 1 on 07/03/2022 by Maximo Lara MD at [facility] Right: Radius [employer] [id number] / / Explanted Type Area Crematorium Operator Device Identifier Shelf Expiration Date Model / Serial / Lot Drill Bit Explanted:Qty: 1 on 07/03/2022 at [facility] Right: Sandy [employer] [id number] / / Procedures Procedure Name Priority Date/Time Associated Diagnosis Comments BONE DENSITY/DEXA Routine 04/06/2024 9:5 4 AM CDT Post-menopausal from Last 3 Months or Most Recently Relevant to Health Maintenance Results * BONE DENSITY/DEXA (04/06/2024 9:54 AM CDT) Anatomical Region Laterality Modality Bone Bone Density 04/06/2024 11:0 3 AM CDT Impressions 04/06/2024 11:06 AM CDT Impression: 1. Within normal limits in the lumbar spine with increase in bone mineral density as described. 2. Consistent with osteopenia in the left hip, stable. Ordered By: ORLANDO MEDINA Interpreted By: Jesus Arizmendi MD, 04/06/2024 11:03 AM Narrative 04/06/2024 11:06 AM CDT [address] [place] [address] Examination: DEXA Bone densitometry Clinical history: Postmenopausal. Osteoporosis screening. Prior right hip arthroplasty. Comparison: 10/01/2021. Technique: DEXA bone mineral density evaluation was performed in the AP projection over the lumbar spine and over the left hip in the AP projection utilizing standard imaging techniques. Assessment: The BMD measured at the AP spine L1-L4 is 1.179 g/cm2 with a T-score of 1.2 and a Z-score of ??3.9. This represents an approximate 14.5% increase from previous. ?? Bone density is up to 10% below young normal. This patient is considered normal according to the World Health Organization (WHO) criteria. Fracture risk is low. The BMD measured at the femur total left is 0.723 g/cm2 with a T-score of -1.8 and a Z-score of 0.3. Allowing for variations inherent in measurement, this is unchanged. ?The patient is considered osteopenic according to World Health Organization (WHO) criteria. Bone density is between 10 and 25% below young normal. Fracture risk is moderate. Treatment is advised. FRAX 10-year fracture risk: Major Osteoporotic Fracture: 24%. Hip Fracture: 6.2%. Recommendations: All patients should ensure an adequate intake of dietary calcium and vitamin D. The NOF recommend adults under the age of 50 need 1000 mg of calcium and 400-800 IU of vitamin D daily. Effective therapy for the prevention and treatment of osteoporosis include biphosphonates. Follow-up: People with diagnosed cases of osteoporosis or at high risk for fracture should have regular bone mineral density test. For patients eligible for Medicare, routine testing is allowed once every 2 years. Testing frequency can be increased to one year for patients who have rapidly progressing disease, those who are receiving or discontinuing medical therapy to restore bone mass, or have additional risk factors. Based on these results, a followup exam is recommended in two years. Procedure Note Jesus Arizmendi MD - 04/06/[address] [place] [address] Examination: DEXA Bone densitometry Clinical history: Postmenopausal. Osteoporosis screening. Prior right hiparthroplasty. Comparison: 10/01/2021. Technique: DEXA bone mineral density evaluation was performed in the APprojection over the lumbar spine and over the left hip in the APprojection utilizing standard imaging techniques. Assessment: The BMD measured at the AP spine L1-L4 is 1.179 g/cm2 with a T-score of1.2 and a Z-score of 3.9. This represents an approximate 14.5% increasefrom previous. Bone density is up to 10% below young normal. Thispatient is considered normal according to the World Health Organization(WHO) criteria. Fracture risk is low. The BMD measured at the femur total left is 0.723 g/cm2 with a T-score of-1.8 and a Z-score of 0.3. Allowing for variations inherent inmeasurement, this is unchanged. The patient is considered osteopenicaccording to World Health Organization (WHO) criteria. Bone density isbetween 10 and 25% below young normal. Fracture risk is moderate.Treatment is advised. FRAX 10-year fracture risk: Major Osteoporotic Fracture: 24%. Hip Fracture: 6.2%. Recommendations: All patients should ensure an adequate intake of dietary calcium andvitamin D. The NOF recommend adults under the age of 50 need 1000 mg ofcalcium and 400-800 IU of vitamin D daily. Effective therapy for theprevention and treatment of osteoporosis include biphosphonates. Follow-up: People with diagnosed cases of osteoporosis or at high risk for fractureshould have regular bone mineral density test. For patients eligible forMedicare, routine testing is allowed once every 2 years. Testing frequencycan be increased to one year for patients who have rapidly progressingdisease, those who are receiving or discontinuing medical therapy torestore bone mass, or have additional risk factors. Based on these results, a followup exam is recommended in two years. Impression: 1. Within normal limits in the lumbar spine with increase in bone mineraldensity as described. 2. Consistent with osteopenia in the left hip, stable. Ordered By: ORLANDO MEDINA Interpreted By: Jesus Arizmendi MD, 04/06/2024 11:03 AM Orlando Medina MD DEXA Final Resul t from Last 3 Months or Most Recently Relevant to Health Maintenance Insurance [employer] Care Teams Fisheries Technician Relationship Specialty Start Date End Date Orlando Medina MD [address] [place] [phone] PCP - General FAMILY PRACTICE 06/27/18
--- OUTSIDE RECORDS SUMMARY | 2024-07-15 03:06 | XMS_ITS | Encounter Summary ---
Author Organization [facility] Address [facility] [place] [address] [place] [address] Care Team Providers Care Air Tucker Name Role Phone Orlando Cortez MD Primary Care Provider [phone] Encounter Details Date Type Department Care Team (Latest Contact Info) Description 07/15/2022 Travel Social History Tobacco Use Types Packs/Day [...] Coronavirus/COVID-19? No / Unsure 07/15/2022 2:14 PM CONTINUOUS IMPROVEMENT CONSULTANT documented as of this encounter Plan of Treatment Not on file documented as of this encounter Visit Diagnoses Not on filedocumented in this encounter Care Teams Air Tucker Relationship Specialty Start Date End Date Orlando Cortez MD [address] [place] [phone] PCP - General FAMILY PRACTICE 06/27/18 documented as of this encounter
--- OUTSIDE RECORDS SUMMARY | 2024-07-15 03:06 | XMS_ITS | Encounter Summary ---
Author Organization [facility] Address [address] [place] [address]. [place] [address] [place] [address] Care Team Providers Care Superintendent Car Construction Name Role Phone Orlando Cortez MD Primary Care Provider Encounter Details Date Type Department Care Team (Late st Contact Info) Description 07/07/2022 Orders Only [facility] [address], [facility] [address] [place] [address] Maximo Lara MD [address] [place] [address] Social History Tobacco Use Types Packs/Day Years [...] suspected to have Coronavirus/COVID-19? No / Unsure 07/02/2022 2:46 PM WASHERY BOSS documented as of this encounter Plan of Treatment Not on file documented as of this encounter Results * XR WRIST RT 2V (07/15/2022 2:42 PM WASHERY BOSS) Anatomical Region Laterality Modality Wrist Radiographic Mely ging 07/16/2022 1:09 PM WASHERY BOSS Impressions 07/16/2022 1:12 PM WASHERY BOSS IMPRESSION: 1. Orthopedic fixation of an oblique fracture of the right distal radius with approximately 3 mm lateral displacement of the main distal fracture fragment. No evidence is seen to suggest hardware-related complication. 2. Redemonstration of a minimally displaced ulnar styloid fracture. 3. Osteoarthritis as above. Ordered By: MAXIMO LARA Interpreted By: Yony Palacios DO, 07/16/2022 1:09 PM Narrative 07/16/2022 1:12 PM WASHERY BOSS Examination: XR WRIST RT 2V Exam time: 07/15/2022 2:42 PM Clinical history: Follow-up after orthopedic surgery. Comparison: Right wrist radiographs 07/02/2022. Technique: PA and lateral views of the right wrist. Findings: A volar plate and screw device affixes an oblique fracture of the right distal radius with approximately 3 mm lateral displacement of the main distal fracture fragment. No evidence is seen to suggest hardware-related complication. Also redemonstrated is a minimally displaced fracture of the ulnar styloid. Severe osteoarthritis affects the triscaphe joint. Moderate osteoarthritis affects the first carpometacarpal joint. Mild osteoarthritis affects the radioscaphoid joint. Osteoarthritis affects the incompletely visualized first metacarpophalangeal joint. Procedure Note Yony Palacios DO - 07/16/2022 Examination: XR WRIST RT 2V Exam time: 07/15/2022 2:42 PM Clinical history: Follow-up after orthopedic surgery. Comparison: Right wrist radiographs 07/02/2022. Technique: PA and lateral views of the right wrist. Findings: A volar plate and screw device affixes an oblique fracture of the rightdistal radius with approximately 3 mm lateral displacement of the maindistal fracture fragment. No evidence is seen to suggest hardware-relatedcomplication. Also redemonstrated is a minimally displaced fracture of theulnar styloid. Severe osteoarthritis affects the triscaphe joint. Moderateosteoarthritis affects the first carpometacarpal joint. Mildosteoarthritis affects the radioscaphoid joint. Osteoarthritis affects theincompletely visualized first metacarpophalangeal joint. IMPRESSION: 1. Orthopedic fixation of an oblique fracture of the right distal radiuswith approximately 3 mm lateral displacement of the main distal fracturefragment. No evidence is seen to suggest hardware-related complication. 2. Redemonstration of a minimally displaced ulnar styloid fracture. 3. Osteoarthritis as above. Ordered By: MAXIMO LARA Interpreted By: Yony Palacios DO, 07/16/2022 1:09 PM Maximo Lara MD GENERAL IMAGING Final Result documented in this encounter Visit Diagnoses Diagnosis Follow-up examination after orthopedic surgery- Primary Follow-up examination, following other surgery Follow-up examination after orthopedic surgery Follow-up examination, following other surgery documented in this encounter Care Teams Superintendent Car Construction Relationship Specialty Start Date End Date Orlando Cortez MD [address] [place] [phone] PCP - General FAMILY PRACTICE 06/27/18 documented as of this encounter
--- OUTSIDE RECORDS SUMMARY | 2024-07-15 03:06 | XMS_ITS | Encounter Summary ---
Author Organization [facility] Address [facility]. [place], [place] [address] [place] [address] Care Team Providers Care Yarn Texturing Machine Operator Name Role Phone Orlando Medina MD Primary Care Provider Reason for Referral * Imaging (Routine) - New Request Specialty Diagnoses / Procedures Referred By Contac t Referred To Contact RADIOLOGY Diagnoses Post-menopausal Procedures BONE DENSITY/DEXA Orlando Medina MD [address] [place] [phone] Phone: tel: fax: Referral ID Status Reason Start Date Expiration Date V isits Requested Visits Authorized [id number] New Request 04/04/2024 04/04/2025 1 1 Reason for Visit * Imaging (Routine) - New Request Specialty Diagnoses / Procedures Referred By Contac t Referred To Contact RADIOLOGY Diagnoses Post-menopausal Procedures BONE DENSITY/DEXA Orlando Medina MD [address] [place] [phone] Phone: tel: fax: Referral ID Status Reason Start Date Expiration Date V isits Requested Visits Authorized [id number] New Request 04/04/2024 04/04/2025 1 1 Encounter Details Date Type Department Care Team (Latest Contact Info) Description 04/06/2024 9:30 AM CDT - 04/06/2024 11:59 PM CDT Hospital Encounter [facility] [address] [place] [address] Orlando Medina MD [address] [place] [phone] Discharge Disposition: Home or Self Care (Routine [...] tablet Take 10 mg by mouth daily. [place]-3 Fatty Acids (FISH OIL PEARLS) 300 MG [...] Routine 04/06/2024 9:5 4 AM CDT Post-menopausal documented in this encounter Results * BONE DENSITY/DEXA (04/06/2024 9:54 AM [...] 11:03 AM Narrative 04/06/2024 11:06 AM CDT [address] [place] [id number] Examination: DEXA Bone densitometry Clinical history: Postmenopausal. [...] Procedure Note Jesus Arizmendi MD - 04/06/[address] [place] [address] Examination: DEXA Bone densitometry Clinical history: Postmenopausal. [...] Orlando Medina MD DEXA Final Resul t documented in this encounter Visit Diagnoses Diagnosis Post-menopausal Asymptomatic postmenopausal status (age-related) (natural) documented in this encounter Care Teams Yarn Texturing Machine Operator Relationship Specialty Start Date End Date Orlando Medina MD [address] [place] [phone] PCP - General FAMILY PRACTICE 06/27/18 documented as of this encounter
--- OUTSIDE RECORDS SUMMARY | 2024-07-15 03:06 | XMS_ITS | Encounter Summary ---
Author Organization [facility] Address [address] [place] [address]. [place] [address] [place] [address] Care Team Providers Care Machine Loader Name Role Phone Orlando Cortez MD Primary Care Provider Encounter Details Date Type Department Care Team (Late st Contact Info) Description 07/28/2022 Orders Only [facility] [address], [facility] 1 [place] [address] Maximo Lara MD [address] [place] [address] Social History Tobacco Use Types Packs/Day Years [...] Coronavirus/COVID-19? No / Unsure 07/15/2022 2:14 PM LECTURER OF [place]UGUESE documented as of this encounter Plan of Treatment Not on file documented as of this encounter Results * XR WRIST RT 2V (08/11/2022 12:12 PM LECTURER OF [place]UGUESE) Anatomical Region Laterality Modality Wrist Radiographic Mely ging 08/11/2022 12:1 2 PM LECTURER OF [place]UGUES[place] Impressions 08/11/2022 12:14 PM LECTURER OF [place]UGUES[place] IMPRESSION: ORIF of prior fracture distal right radius unchanged in position or alignment since 07/15/2022. Nonunited fracture at the base of the ulnar styloid. Arthritic changes. Soft tissue swelling. Ordered By: MAXIMO LARA Interpreted By: Jaylon Sanchez MD, 08/11/2022 12:12 PM Narrative 08/11/2022 12:14 PM LECTURER OF [place]UGUESE 08/11/2022, 11:15 AM. HISTORY: Recheck right wrist. ORIF. Surgical aftercare. EXAM: AP, lateral and oblique views of the right wrist. Correlation to study 07/15/2022. FINDINGS: Prior buttressing plate fixation on the anterior cortex of the distal metadiaphysis of the right radius for fixation of a transverse distal metadiaphyseal fracture, unchanged in position or alignment since study 07/15/2022. No erosion about the buttressing plate affixing screws and no evidence of loosening nor infection. Subacute or old fracture at the base of the ulnar styloid with minimal displacement. Osteoarthritis at the ST-T complex of the wrist and [id number] osteoarthritis at the trapezium first metacarpal articulation. Minimal narrowing of the capitate lunate articulation. No definite widening of the scapholunate joint space. Periarticular soft tissue swelling about the wrist. Procedure Note Jaylon Sanchez MD - 08/11/2022 08/11/2022, 11:15 AM. HISTORY: Recheck right wrist. ORIF. Surgical aftercare. EXAM: AP, lateral and oblique views of the right wrist. Correlation tostudy 07/15/2022. FINDINGS: Prior buttressing plate fixation on the anterior cortex of thedistal metadiaphysis of the right radius for fixation of a transversedistal metadiaphyseal fracture, unchanged in position or alignment sincestudy 07/15/2022. No erosion about the buttressing plate affixing screws andno evidence of loosening nor infection. Subacute or old fracture at thebase of the ulnar styloid with minimal displacement. Osteoarthritis at theST-T complex of the wrist and [id number] osteoarthritis at thetrapezium first metacarpal articulation. Minimal narrowing of the capitatelunate articulation. No definite widening of the scapholunate joint space.Periarticular soft tissue swelling about the wrist. IMPRESSION: ORIF of prior fracture distal right radius unchanged in position oralignment since 07/15/2022. Nonunited fracture at the base of the ulnarstyloid. Arthritic changes. Soft tissue swelling. Ordered By: MAXIMO LARA Interpreted By: Jaylon Sanchez MD, 08/11/2022 12:12 PM Maximo Lara MD GENERAL IMAGING Final Result documented in this encounter Visit Diagnoses Diagnosis Orthopedic aftercare- Primary Unspecified orthopedic aftercare Orthopedic aftercare Unspecified orthopedic aftercare documented in this encounter Care Teams Machine Loader Relationship Specialty Start Date End Date Orlando Cortez MD [address] [place] [phone] PCP - General FAMILY PRACTICE 06/27/18 documented as of this encounter
--- OUTSIDE RECORDS SUMMARY | 2024-07-15 03:06 | XMS_ITS | Encounter Summary ---
Author Organization [facility] Address [facility] [place] [address] [place] [address] Care Team Providers Care Agile Scrum Master Name Role Phone Orlando Cortez MD Primary Care Provider Encounter Details Date Type Department Care Team (Latest Contact Info) Description 07/15/2022 2:22 PM CENTERLESS GRINDER OPERATOR - 07/15/2022 11:59 PM [facility] Hospital Encounter [facility] [address] [place] [address] Maximo Lara MD [address] [place] [address] Discharge Disposition: Home or Self Care (Routine [...] Coronavirus/COVID-19? No / Unsure 07/15/2022 2:14 PM CENTERLESS GRINDER OPERATOR documented as of this encounter Medications at [...] tablet Take 10 mg by mouth daily. [place]-3 Fatty Acids (FISH OIL PEARLS) 300 MG [...] Diagnosis Comments XR WRIST RT 2V Routine 07/15/2022 2:42 PM CENTERLESS GRINDER OPERATOR Follow-up examination after orthopedic surgery documented in this encounter Results * XR WRIST RT 2V (07/15/2022 2:42 PM CENTERLESS GRINDER OPERATOR) Anatomical Region Laterality Modality Wrist Radiographic Mely ging 07/16/2022 1:09 PM CENTERLESS GRINDER OPERATOR Impressions 07/16/2022 1:12 PM CENTERLESS GRINDER OPERATOR IMPRESSION: 1. Orthopedic fixation of an oblique fracture of the right distal radius with approximately 3 mm lateral displacement of the main distal fracture fragment. No evidence is seen to suggest hardware-related complication. 2. Redemonstration of a minimally displaced ulnar styloid fracture. 3. Osteoarthritis as above. Ordered By: MAXIMO LARA Interpreted By: Yony Palacios DO, 07/16/2022 1:09 PM Narrative 07/16/2022 1:12 PM CENTERLESS GRINDER OPERATOR Examination: XR WRIST RT 2V Exam time: [...] Visit Diagnoses Diagnosis Follow-up examination after orthopedic surgery Follow-up examination, following other surgery documented in this encounter Care Teams Agile Scrum Master Relationship Specialty Start Date End Date Orlando Cortez MD [address] [place] [phone] PCP - General FAMILY PRACTICE 06/27/18 documented as of this encounter
--- OUTSIDE RECORDS SUMMARY | 2024-07-15 03:06 | XMS_ITS | Encounter Summary ---
Author Organization [facility] Address [facility] [address] [place] [address] Care Team Providers Care Teacher Private Name Role Phone Orlando Cortez MD Primary Care Provider [phone] Encounter Details Date Type Department Care Team (Latest Contact Info) Description 08/11/2022 11:30 AM TANK ERECTOR - 08/11/2022 11:59 PM [facility] Hospital Encounter [facility] [address] [place] [address] Maximo Lara MD [address] [place] [address] Discharge Disposition: Home or Self Care (Routine [...] Coronavirus/COVID-19? No / Unsure 08/11/2022 11:28 AM TANK ERECTOR documented as of this encounter Medications at [...] tablet Take 10 mg by mouth daily. [place]-3 Fatty Acids (FISH OIL PEARLS) 300 MG [...] Diagnosis Comments XR WRIST RT 2V Routine 08/11/2022 12:12 PM TANK ERECTOR Orthopedic aftercare documented in this encounter Results * XR WRIST RT 2V (08/11/2022 12:12 PM TANK ERECTOR) Anatomical Region Laterality Modality Wrist Radiographic Mely ging 08/11/2022 12:1 2 PM TANK ERECTOR Impressions 08/11/2022 12:14 PM TANK ERECTOR IMPRESSION: ORIF of prior fracture distal right radius unchanged in position or alignment since 07/15/2022. Nonunited fracture at the base of the ulnar styloid. Arthritic changes. Soft tissue swelling. Ordered By: MAXIMO LARA Interpreted By: Jaylon Sanchez MD, 08/11/2022 12:12 PM Narrative 08/11/2022 12:14 PM TANK ERECTOR 08/11/2022, 11:15 AM. HISTORY: Recheck right wrist. [...] the ST-T complex of the wrist and zvai-qa-ntczvagm osteoarthritis at the trapezium first metacarpal articulation. [...] at theST-T complex of the wrist and qqwy-ej-cbbagvmt osteoarthritis at thetrapezium first metacarpal articulation. Minimal [...] aftercare documented in this encounter Care Teams Teacher Private Relationship Specialty Start Date End Date Orlando Cortez MD [address] [place] [phone] PCP - General FAMILY PRACTICE 06/27/18 documented as of this encounter
--- OUTSIDE RECORDS SUMMARY | 2024-07-15 03:06 | XMS_ITS | Encounter Summary ---
Author Organization [facility] Address [facility]. [place], [place] [address] [place] [address] Care Team Providers Care Optical Assistant Name Role Phone Orlando Cortez MD Primary Care Provider [phone] Encounter Details Date Type Department Care Team (Latest Contact Info) Description 04/06/2024 Travel Social History Tobacco Use Types Packs/Day [...] on filedocumented in this encounter Care Teams Optical Assistant Relationship Specialty Start Date End Date Orlando Cortez MD [address] [place] [phone] PCP - General FAMILY PRACTICE 06/27/18 documented as of this encounter
--- OUTSIDE RECORDS SUMMARY | 2024-07-15 03:06 | XMS_ITS | Encounter Summary ---
Author Organization [facility] Address [address] [place] [address]. [place], [place] [id number] [place] [address] Care Team Providers Care Paper Roll Machine Operator Name Role Phone Orlando oCrtez MD Primary Care Provider Reason for Visit * Reason Comments Postop Followup DOS 07/03/2022 Open reduction internal fixation RIGHT distal radius fracture using a Mary volar locking plate?? Encounter Details Date Type Department Care Team (Latest Contact Info) Description 08/25/2022 4:45 PM CAPACITY PLANNING ENGINEER Office Visit [facility] [address] [address] Maximo Lara MD [address] [place] [address] Postop Followup (DOS 07/03/2022 Open reduction internal fixation RIGHT distal radius fracture using a Mary volar locking plate/??) Social History Tobacco Use Types Packs/Day Years [...] Coronavirus/COVID-19? No / Unsure 08/25/2022 4:05 PM CAPACITY PLANNING ENGINEER documented as of this encounter Last Filed Vital Signs Vital Sign Reading Time Taken Comments Blood Pressure - - Pulse - - Temperature - - Respiratory Rate - - Oxygen Saturation - - Inhaled Oxygen Concentration - - Weight 84.4 kg (186 lb) 08/25/2022 4:09 PM CAPACITY PLANNING ENGINEER Height 177.8 cm (5' 10) 08/25/2022 4:09 PM CAPACITY PLANNING ENGINEER Body Mass Index 26.69 08/25/2022 4:09 PM CAPACITY PLANNING ENGINEER documented in this encounter Progress Notes * Maximo Lara MD - 08/25/2022 4:45 PM CST Chief Complaint: Postop Followup (DOS 07/03/2022 Open reduction internal fixation RIGHT distal radius fracture usinga Mary volar locking plate/??) History of Present Illness: Ernestine Salinas is a 81-year-old female who presents to the office for Postop Followup (DOS 07/03/2022 Open reduction internal fixation RIGHT distal radius fracture using a [place] volar locking plate/??) Patient comes in the office today for Post Op Follow up of the RIGHT wrist. She states not having any pain. She denies any bruising, swelling, numbness, tingling. She states no night pain. She stateshas not needed to take any pain medicine. She is RIGHT hand dominant. She denies use of any assistive devices. She is not in PT. ROS: See HPI for pertinent positives Problem [...] POLYPECTOMY performed by Cricket Hung MD at [facility] OR ??? EYE SURGERY ??? [...] by mouth daily., Disp: , Rfl: ??? [place]-3 Fatty Acids (FISH OIL PEARLS) 300 MG [...] index is 26.69 kg/m??. Last Recorded Weight 08/25/22 1609 Weight: 84.4 kg (186 lb) Physical exam: Constitutional: Alert and in no acute distress. Neurological: The patient was oriented to person, place, and time. Eyes: The sclera and conjunctiva were normal ENT: Hearing was normal. Neck: The appearance of the neck was normal. Cardiovascular: Normal pulses. Pulmonary: No respiratory distress. Skin: No injuries or skin lesion. Musculoskeletal: Patient demonstrates good wrist range of motion and finger motion with the right upper extremity Results: X-ray was reviewed demonstrating progressive healing with good alignment and good positioning of hardware of the right distal radius Assessment: Encounter Diagnose(s) ICD-10-CM ICD-9-CM SNOMED CT(R) 1. Other closed fracture of distal end of right radius, initial encounter S52.591A 813.42 CLOSED FRACTURE OF DISTAL END OF RADIUS 2. Status post orthopedic surgery, follow-up exam Z09 V67.09 SURGICAL FOLLOW-UP Plan: Patient is doing well and feels very comfortable with function. She does not see the need for physical therapy since she is got no complaints at this point. I do not have any activity restrictions and she will return as needed Follow up: Return if symptoms worsen or fail to improve. MAXIMO LARA MD CITY PLANNING ENGINEER documented in this encounter Plan of Treatment Not on file documented as of this encounter Visit Diagnoses Diagnosis Other closed fracture of distal end of right radius, initial encounter- Primary Status post orthopedic surgery, follow-up exam Follow-up examination, following other surgery documented in this encounter Care Teams Paper Roll Machine Operator Relationship Specialty Start Date End Date Orlando Cortez MD [address] [place] [phone] PCP - General FAMILY PRACTICE 06/27/18 documented as of this encounter
--- OUTSIDE RECORDS SUMMARY | 2024-07-15 03:07 | XMS_ITS | Encounter Summary ---
Author Organization [facility] Address [facility] [place] [address] [place] [address] Care Team Providers Care Maintenance Advisor Name Role Phone Orlando Cortez MD Primary Care Provider [phone] Encounter Details Date Type Department Care Team (Latest Contact Info) Description 06/26/2022 3:21 PM MANAGER ADMINISTRATIVE SERVICES - 06/26/2022 11:59 PM [facility] Hospital Encounter [facility] [address] [place] [address] Deshawn Angela, HEEL MOLDER [address] [place] [address] Discharge Disposition: Home or Self [...] suspected to have Coronavirus/COVID-19? No / Unsure 06/26/2022 3:18 PM MANAGER ADMINISTRATIVE SERVICES documented as of this encounter Medications at [...] (two) times daily. 180 capsule 1 02/17/2021 Melatonin 10 MG Tab Take 5 mg by mouth nightly at bedtime. 11/17/2017 memantine 10 MG tablet Take 10 mg by mouth daily. [place]-3 Fatty Acids (FISH OIL PEARLS) 300 MG [...] Date/Time Associated Diagnosis Comments XR WRIST RT MIN 3V STAT 06/26/2022 3: 39 PM MANAGER ADMINISTRATIVE SERVICES Right wrist pain documented in this encounter Results * XR WRIST RT MIN 3V (06/26/2022 3:39 PM MANAGER ADMINISTRATIVE SERVICES) Anatomical Region Laterality Modality Wrist Radiographic Mely ging 06/26/2022 3:38 PM MANAGER ADMINISTRATIVE SERVICES Impressions 06/26/2022 3:41 PM MANAGER ADMINISTRATIVE SERVICES IMPRESSION: There is a mildly displaced and angulated transverse fracture of the distal radius. There is a nondisplaced ulnar styloid fracture. Ordered By: DESHAWN ANGELA Interpreted By: Ricci Amador MD, 06/26/2022 3:38 PM Narrative 06/26/2022 3:41 PM MANAGER ADMINISTRATIVE SERVICES Examination: XR WRIST RT MIN 3V Exam time: 06/26/2022 3:39 PM Indication: Ground-level fall today. Pain. Comparison: None Findings: 3 views of the right wrist were obtained. The scapholunate distance is not widened. Triscaphe the joint osteoarthritis is noted. There is an impacted transverse distal radius fracture with mild posterior displacement and dorsal angulation. There is a nondisplaced ulnar styloid fracture. Severe first carpometacarpal joint osteoarthritis. Procedure Note Ricci Amador MD - 06/26/2022 Examination: XR WRIST RT MIN 3V Exam time: 06/26/2022 3:39 PM Indication: Ground-level fall today. Pain. Comparison: None Findings: 3 views of the right wrist were obtained. The scapholunatedistance is not widened. Triscaphe the joint osteoarthritis is noted.There is an impacted transverse distal radius fracture with mild posteriordisplacement and dorsal angulation. There is a nondisplaced ulnar styloidfracture. Severe first carpometacarpal joint osteoarthritis. IMPRESSION: There is a mildly displaced and angulated transverse fractureof the distal radius. There is a nondisplaced ulnar styloid fracture. Ordered By: DESHAWN ANGELA Interpreted By: Ricci Amador MD, 06/26/2022 3:38 PM Deshawn Angela HEEL MOLDER GENERAL IMAGING Fin al Result documented in this encounter Visit Diagnoses Diagnosis Right wrist pain Pain in joint, forearm documented in this encounter Care Teams Maintenance Advisor Relationship Specialty Start Date End Date Orlando Cortez MD [address] [place] [phone] PCP - General FAMILY PRACTICE 06/27/18 documented as of this encounter
--- OUTSIDE RECORDS SUMMARY | 2024-07-15 03:07 | XMS_ITS | Encounter Summary ---
Author Organization [facility] Address [facility]6 [facility] [place] [address] [place] [address] Care Team Providers Care Title Abstractor Name Role Phone Orlando Cortez MD Primary Care Provider [phone] Reason for Visit * Reason Comments Follow Up neuropathy/dementia Encounter Details Date Type Department Care Team (Latest Contact Info) Description 04/04/2020 3:00 PM CDT Office Visit [facility] Neuroscience [facility] [address], [place] [address] Joselito Alexander MD [address] [place], [place] [address] Follow Up (neuropathy/dementia ) Social History Tobacco Use Types Packs/Day Years Used Date Smoking Tobacco: Former Smokeless Tobacco: Never Alcohol Use Standard Drinks/Week Comments No 0 (1 standard drink = 0.6 oz pur e alcohol) AUDIT-C Answer Date Recorded Frequency of Alcohol Consumption Never 06/30/2018 Average Number of Drinks Not on file 018 Frequency of Binge Drinking Not on file 06/12 Comments Unknown Sex and Gender Information Value Date Recorded Sex Assigned at Not on file Legal Sex Female 6:36 PM CDT Gender Identity Not on file Sexual Orientation Not on file COVID-19 Exposure Response Date Recorded In the last month, have you been in contact with someone who was confirmed or suspected to have Coronavirus / COVID-19? No / Unsure 04/04/2020 2:58 PM CDT documented as of this encounter Last Filed Vital Signs Vital Sign Reading Time Taken Comments Blood Pressure 136/84 04/04/2020 3:18 PM CDT Pulse 80 04/04/2020 3:18 PM CDT Temperature - - Respiratory Rate - - Oxygen Saturation 95% 04/04/2020 3:18 PM CDT Inhaled Oxygen Concentration - - Weight 88.5 kg (195 lb 3.2 oz) 04/04/2020 3:18 P M CDT Height 180.3 cm (5' 11) 04/04/2020 3:18 PM CDT Body Mass Index 27.22 04/04/2020 3:18 PM CDT documented in this encounter Progress Notes * Joselito Alexander MD - 04/04/2020 3:00 PM CDT Chief Complaint: Neuropathy. HPI: Ms. Salinas returns to clinic today. It has been a year and a half since I saw her last. She is doing well. She is living with her daughter now. She quit her Aricept. They did not notice much of a difference. She is her usual friendly, irascible self. Past Medical History: Diagnosis Date ??? Anxiety ??? Depression ??? DJD (degenerative joint disease) ??? Hyperlipidemia ??? Memory changes ??? Neuropathy ??? Osteoporosis ??? Spinal stenosis Current Outpatient Medications Medication Sig Dispense Refill ??? aspirin 81 MG tablet Take 81 mg by mouth. ??? atorvastatin 40 MG tablet ??? donepezil (ARICEPT) 10 MG Tab Take 1 tablet by mouth daily. ??? duloxetine 60 MG capsule Take 60 mg by mouth daily. ??? GABAPENTIN 300 MG capsule TAKE ONE CAPSULE BY MOUTH TWICE DAILY. 180 capsule 0 ??? Melatonin 10 MG Tab Take 1 tablet by mouth. ??? memantine 10 MG tablet Take 10 mg by mouth 2 (two) times daily. ??? Misc Natural Products (OSTEO BI-FLEX TRIPLE STRENGTH) Tab Take 1 tablet by mouth daily. ??? Multiple Vitamins-Minerals (CENTRUM SILVER ULTRA WOMENS) Tab Take 1 tablet by mouth daily. ??? [place]-3 Fatty Acids (FISH OIL PEARLS) 300 MG Cap ??? raloxifene (EVISTA) 60 MG tablet Take 1 tablet by mouth daily. ??? traMADol 50 MG tablet 2 ??? triamcinolone 0.1 % cream ??? sertraline 50 MG tablet ??? TiZANidine HCl 4 MG Cap Take 4 mg by mouth. No current facility-administered medications for this visit. Review of Systems Neurological: As noted in HPI. All other systems reviewed and are negative. Filed Vitals: 04/04/20 1518 BP: 136/84 Pulse: 80 SpO2: 95% Weight: 88.5 kg (195 lb 3.2 oz) Height: 5' 11 (1.803 m) Physical Exam Constitutional: She is oriented to person, place, and time. She appears well- developed and well-nourished. HENT: Head: Normocephalic. Mouth/Throat: Oropharynx is clear and moist. Eyes: Pupils are equal, round, and reactive to light. EOM are normal. Normal Fundoscopic Exam Neck: Normal range of motion. Neck supple. Cardiovascular: Normal rate, regular rhythm and normal heart sounds. Pulmonary/Chest: Effort normal and breath sounds normal. Abdominal: Soft. Bowel sounds are normal. Musculoskeletal: Normal range of motion. Neurological: She is oriented to person, place, and time. She has normal strength. She has a llhorpJutsqz-Qkce-Fhoyji Test, a normal Heel to Ram Test and a normal Romberg Test. Gait normal. Psychiatric: Her speech is normal. Neurologic Exam Mental Status Oriented to person, place, and time. Attention: normal. Concentration: normal. Speech: speech is normal Level of consciousness: alert Knowledge: good. Cranial Nerves CN II Visual domingo full to confrontation. CN III, IV, Pupils are equal, round, and reactive to light. Extraocular motions are normal. CN V Facial sensation intact. CN VII Facial expression full, symmetric. CN VIII CN VIII normal. CN IX, X CN IX normal. CN XI CN XI normal. CN XII CN XII normal. Motor Exam Muscle bulk: normal Overall muscle tone: normal Strength Strength 5/5 throughout. Sensory Exam Light touch normal. Vibration normal. Proprioception normal. Pinprick normal. Gait, Coordination, and Reflexes Gait Gait: normal Coordination Romberg: negative Finger to nose coordination: normal Heel to ram coordination: normal Reflexes Reflexes 2+ except as noted. Right plantar: normal Left plantar: normal Right ankle clonus: absent Left ankle clonus: absent Impression: 1. Idiopathic small fiber neuropathy. 2. She has some anxiety and depression. 3. She had some memory issues, was on Aricept for a while but it did not help. We took her off of it. She seems pretty cognitively intact now. Plan: 1. Idiopathic small fiber neuropathy. 2. She has some anxiety and depression. 3. She had some memory issues, was on Aricept for a while but it did not help. We took her off of it. She seems pretty cognitively intact now. JOSELITO ALEXANDER MD documented in this encounter Plan of Treatment Not on file documented as of this encounter Visit Diagnoses Diagnosis Other polyneuropathy- Primary Neuropathy Mononeuritis of unspecified site documented in this encounter Care Teams Title Abstractor Relationship Specialty Start Date End Date Orlando Cortez MD [address] [place] [phone] PCP - General FAMILY PRACTICE 06/27/18 documented as of this encounter
--- OUTSIDE RECORDS SUMMARY | 2024-07-15 03:07 | XMS_ITS | Encounter Summary ---
Author Organization [facility] Address [facility] [place] [address] [place] [address] Care Team Providers Care Wireless Sales Manager Name Role Phone Orlando Cortez MD Primary Care Provider Encounter Details Date Type Department Care Team (Latest Contact Info) Description 01/05/2019 11:36 AM CDT - 01/05/2019 11:59 PM CDT Hospital Encounter [facility] [address] [place] [address] Discharge Disposition: Home or Self Care (Routine [...] this encounter Medications at Time of Discharge aspirin 81 MG tablet Take 81 mg by mouth. atorvastatin 40 MG tablet Take 40 mg by mouth nightly at bedtime. 12/02/2015 donepezil 10 MG Tab Take 1 tablet by mouth daily. 11/17/2017 duloxetine 60 MG capsule Take 60 mg by mouth daily. Melatonin 10 MG Tab Take 5 mg by mouth nightly at bedtime. 11/17/2017 memantine 10 MG tablet Take 10 mg by mouth daily. [place]-3 Fatty Acids (FISH OIL PEARLS) 300 MG Cap Take 1,000 Units by mouth daily. 11/17/2017 raloxifene 60 MG tablet Take 1 tablet by mouth daily. 01/06/2018 traMADol 50 MG tabletIndications :Chronic Pain Take 50 mg by mouth 4 (four) times daily. Indications: Chronic Pain 2 01/18/2018 gabapentin 300 MG capsuleIndication s:Neuropathy Take 1 capsule (300 mg total) by mouth 2 (two) times daily. 60 capsule 2 10/31/2018 01/11/2019 Misc Natural Products (OSTEO BI-FLEX TRIPLE STRENGTH) Tab Take 1 tablet by mouth daily. 11/17/2017 12/18/2021 Multiple Vitamins-Minerals (CENTRUM SILVER ULTRA WOMENS) Tab Take 1 tablet by mouth daily. 11/17/2017 12/18/2021 sertraline 50 MG tablet 12/18/2015 12/18/2021 TiZANidine HCl 4 MG Cap Take 4 mg by mouth. 12/18/2021 triamcinolone 0.1 % cream 12/24/2016 12/18/2021 documented as of this encounter Plan of Treatment Not on file documented as of this encounter Procedures Procedure Name Priority Date/Time Associated Diagnosis Comments XR HIP RT 2V Routine 01/05/2019 12:09 PM CDT Pain of right hip joint documented in this encounter Results * XR HIP RT 2V (01/05/2019 12:09 PM CDT) Anatomical Region Laterality Modality Hip Radiographic Mely ging 01/05/2019 6:18 PM CDT Impressions 01/05/2019 6:22 PM CDT IMPRESSION: 1) Stable appearance of the right hip arthroplasty. No malalignment or acute bony abnormalities. Interpreted By: Rob Flores MD, 01/05/2019 6:18 PM Narrative 01/05/2019 6:22 PM CDT Examination: XR HIP RT 2V Exam time: 01/05/2019 12:09 PM Clinical history: Patient has right hip pain lateral to the hip joint. History of remote hip replacement. Comparison: Previous radiographs performed in February 2017 Technique: 2 views of the right. Findings: There is a right hip arthroplasty. The position of the prosthesis is proper. No acute bony abnormalities. In the surrounding soft tissues no acute abnormalities are seen. The pubic bone is intact. Please correlate and follow-up clinically. If the symptoms still persist and further indicated additional studies including cross-sectional imaging or 3 phase bone scan can be considered. Procedure Note Rob Flores MD - 01/05/2019 Examination: XR HIP RT 2V Exam time: 01/05/2019 12:09 PM Clinical history: Patient has right hip pain lateral to the hip joint. History of remote hip replacement. Comparison: Previous radiographs performed in February 2017 Technique: 2 views of the right. Findings: There is a right hip arthroplasty. The position of theprosthesis is proper. No acute bony abnormalities. In the surrounding soft tissuesno acute abnormalities are seen. The pubic bone is intact. Please correlate and follow-up clinically. If the symptoms still persist and further indicated additional studies including cross-sectionalimaging or 3 phase bone scan can be considered. IMPRESSION: 1) Stable appearance of the right hip arthroplasty. No malalignment or acute bony abnormalities. Interpreted By: Rob Flores MD, 01/05/2019 6:18 PM Hero Shafer MD GENERAL IMAGING Zita l Result documented in this encounter Visit Diagnoses Not on filedocumented in this encounter Care Teams Wireless Sales Manager Relationship Specialty Start Date End Date Orlando Cortez MD [address] [place] [phone] PCP - General FAMILY PRACTICE 06/27/18 documented as of this encounter
--- OUTSIDE RECORDS SUMMARY | 2024-07-15 03:07 | XMS_ITS | Encounter Summary ---
Author Organization [facility] Address [facility] [place] [address] [place] [address] Care Team Providers Care Production Quality Manager Name Role Phone Orlando Cortez MD Primary Care Provider [phone] Encounter Details Date Type Department Care Team (Latest Contact Info) Description 07/02/2022 Travel Social History Tobacco Use Types Packs/Day [...] Coronavirus/COVID-19? No / Unsure 07/02/2022 2:46 PM COMPUTER TAPE LIBRARIAN documented as of this encounter Plan of Treatment Not on file documented as of this encounter Visit Diagnoses Not on filedocumented in this encounter Care Teams Production Quality Manager Relationship Specialty Start Date End Date Orlando Cortez MD [address] [place] [phone] PCP - General FAMILY PRACTICE 06/27/18 documented as of this encounter
--- OUTSIDE RECORDS SUMMARY | 2024-07-15 03:07 | XMS_ITS | Encounter Summary ---
Author Organization [facility] Address [address] [place] [address]. [place] [address] [place] [address] Care Team Providers Care Etched Circuit Processor Name Role Phone Orlando Cortez MD Primary Care Provider Reason for Visit * Reason Onset Date Comments Medication 05/31/2019 Encounter Details Date Type Department Care Team (Late st Contact Info) Description 05/31/2019 Telephone [facility] [address] [place] [address] Joselito Alexander MD [address] [place], [place] [id number] Medication Social History Tobacco Use Types Packs/Day Years [...] on file documented as of this encounter Progress Notes * Marcella Francisco - 05/31/2019 2:51 PM CST Lorena eastman [facility] in [place] left message that they are taking over the pts Gabapentin script and they are requesting a 90 day supply so they can put it in a pill pack for the pt. Script sent over. ECTIONAL PROGRAM OFFICER documented in this encounter Plan of Treatment Not on file documented as of this encounter Visit Diagnoses Diagnosis Neuropathy Mononeuritis of unspecified site documented in this encounter Care Teams Etched Circuit Processor Relationship Specialty Start Date End Date Orlando Cortez MD [address] [place] [phone] PCP - General FAMILY PRACTICE 06/27/18 documented as of this encounter
--- OUTSIDE RECORDS SUMMARY | 2024-07-15 03:07 | XMS_ITS | Encounter Summary ---
Author Organization [facility] Address [facility] [place] [address] [place] [address] Care Team Providers Care In Store Demonstrator Name Role Phone Orlando Cortez MD Primary Care Provider [phone] Reason for Visit * Auth/Cert (Routine) Specialty Diagnoses / Procedures Referred By Contac t Referred To Contact Diagnoses Other closed fracture of distal end of right radius, initial encounter S52.591A Procedures Open reduction internal fixation RIGHT wrist; ; rosie notified, c-arm, told to arrive at 0615 Maximo Lara MD [address] [place] [address] Phone: tel: fax: Referral ID Status Reason Start Date Expiration Date Visits Re quested Visits Authorized [id number] 1 1 Encounter Details Date Type Department Care Team (Late st Contact Info) Description 07/03/2022 7:35 AM TREE FELLER Anesthesia Event [facility] [address] [place] [address] Lorraine Stewart, PLANT GUARD [address] [place] [address] [phone] (Work) Anesthesia Record Procedure Summary Procedure Name Responsible Anesthesiologist Anesthesia Start Time Anesthesia Stop Time Open reduction internal fixation RIGHT wrist (Right: Arm Lower) 07/03/22 0735 07/03/22 0845 Events Date Time Event Comment 07/03/2022 0713 0713 AN PLANT GUARD Prepped 0713 AN Anesthesia Prepped 0719 Block Start 0724 Block Stop 0735 An Start Patient ID and consent checked and patient reassessed. 0735 An Start Data 0736 AN Immediate Reassess The pa tient was reevaluated immediately before sedation or regional anesthesia. 0736 Face Mask Applied 0744 Anesthesia Ready 0744 Quick Note Pulse ox and bl ood pressure cuff on same arm 0753 An Tourn Inflated 250mmHg to right upper arm 0815 An Tourn Deflated 0839 an stop data 0841 Post Anesthetic Care Handoff I completed my handoff to the receiving nurse during which we: 1. Identified the patient 2. Identified the responsible provider 3. Reviewed the pertinent medical history 4. Discussed the surgical course 5. Reviewed intra-op anesthesia management and issues during anesthesia 6. Set expectations for post-procedure period 7. Allowed opportunity for questions and acknowledgement of understanding. 0845 An Stop Meds Name Total propofol (DIPRIVAN) 500 mg/50 mL injecti on 170.49 mg fentaNYL (SUBLIMAZE) 100 mcg/2 mL inject ion 100 mcg ketamine 50 mg/mL injection 50 mg ROpivacaine (NAROPIN) 1% injection 20 mL ceFAZolin (ANCEF) 2 g in NS 100 mL IVPB 2 g lactated ringers infusion 700 mL * Agents Name O2 Ancillary O2 * Blood No blood administrations on file. Lines, Drains, and Airways Type Details Placement Removal Peripheral IV Placement Date: 07/03/22; Placement Time: 0644; Placed Outside of This Facility?: No; Size: 20 G; Orientation: Left; Location: Antecubital; Site Prep: Chlorhexidine; Local Anesthetic: None; Inserted By: STEFANIA NGO; Insertion attempts: 1; Ultrasound-guided Placement?: No; Patient Tolerance: Tolerated well; Removal Date: 07/03/22; Removal Time: 09; Removal Reason: Patient Discharged 07/03/22 0644 by Meet Batista RN 07/03/22 0920 by Lona Boyer RN Surgical/Incision 07/03/22; 0801; Surgical Wound; Arm; Right; Xeroform, Fluffs, Webril, Plaster Splint, Jasiel Wrap; 07/03/22; 1213 07/03/22 0801 by Kellee Orellana RN 07/03/22 1213 by Automatic Discharge Provider documented in this encounter Social History Tobacco Use Types Packs/Day Years [...] Coronavirus/COVID-19? No / Unsure 07/15/2022 2:14 PM TREE FELLER documented as of this encounter OR Notes * Anesthesia Postprocedure Evaluation - Jayla Alberts CRNA - 07/03/2022 9:23 AM CST Anesthesia Post-op Note Ernestine Salinas Procedure(s): Open reduction internal fixation RIGHT wrist rosie notified, c-arm, told to arrive at 0615 (Right: Arm Lower) Anesthesia type: peripheral nerve block as primary anesthesia, MAC Vitals: 07/03/22 0858 BP: 131/87 Vitals: 07/03/22 0858 Pulse: 66 Vitals: 07/03/22 0858 Resp: 15 Vitals: 07/03/22 0858 Temp: 36.1 ??C Vitals: 07/03/22 0858 SpO2: 98% Patient Location: Phase II/Outpatient Level of Consciousness: awake, alert and confused Pain Management: adequate analgesia Airway Patency: patent Respiratory Status: spontaneous ventilation and acceptable Cardiovascular Status: acceptable, stable and hemodynamically stable Post-Op Nausea: none Postoperative Hydration: euvolemic spoke with daughter and patient and instructed to eat a banana a day for the next week due to a borderline potassium on arrival There were no known notable events for this encounter. FELLER * Anesthesia Procedure Notes - Jayla Alberts CRNA - 07/03/2022 7:28 AM TREE FELLER Associated Order(s): Peripheral Block Peripheral Block Performed by: Jayla Alberts CRNA Authorized by: Jayla Alberts CRNA Procedure Start: 07/03/2022 7:19 AM Procedure Stop: 07/03/2022 7:24 AM Patient Location: Pre-op Reason for Block: at surgeon's request, post-op pain management and primary anesthetic patient identified, IV checked, site marked, risks and benefits discussed, consent, monitors and equipment checked, pre-op evaluation and timeout performed Patient Position: Supine Monitoring: Blood pressure, continuous pulse ox, ECG/EKG and heart rate Prep: ChloraPrep Draping: Sterile technique maintained Block Type: Axillary Laterality: Right Injection Technique: Single-shot Technique: ultrasound guided Needle type: Medline Echogenic. Needle gauge: 24G. Needle length: 4cm. Needle Localization: Anatomical landmarks and ultrasound guidance Test Dose: Negative Local Volume: 12 Insertion Attempts: 1 Injection Assessment/ Attestation: Incremental injection, local visualized surrounding nerve on ultrasound, negative aspiration for heme, no apparent complications, no paresthesia on injection and paresthesia absent Paresthesia Pain: None Heart Rate Change: No Risks explained: difficult placement, may be ineffective, bleeding, infection, nerve damage. Benefits explained to patient: may lower sedation and/or general anesthetic dose, possibly less pain afterprocedure.Timeout performed including patients name, date, and laterality. Patient participated in the timeout. Antiseptic prep. Sterile probe cover applied. ID of axillary artery. 24 g sono needle used to injected local with multiple negative aspirations. Patient tolerated procedure well. FELLER * Anesthesia Preprocedure Evaluation - Jayla Alberts CRNA - 07/02/2022 1:36 PM CST Anesthesia ROS/MED History Reviewed: Patient summary , Nursing notes , ECG, Family history anesthesia, Anesthesia history , Medications , Labs , Images/Studies , Unchecked boxes are not applicable Pre-Anesthetic State: alert, awake and responds appropriately Comment: History of dementia, answering questions appropriatly Pulmonary neg pulmonary ROS ROS comment: Quit smoking 20 plus years ago Cardiovascular neg cardio ROS Exercise tolerance:good (+) hyperlipidemia Neuro/Psych neg neuro/psych ROS (+) neuromuscular disease, (anxiety) Comments: Lumbar radiculopathy, spinal stenosis, polyneuropathy GI/Hepatic/Renal neg GI/hepatic/renal ROS Endo/Other neg endo/other ROS (+) arthritis, (OA) Comments: DJD GENERAL COMMENTS Aspirin HX=PARTIAL HIP REPLACEMENT EYE SURGERY COLONOSCOPY MRI brain IMPRESSION: 1. No acute intracranial abnormality. 2. Moderate chronic small vessel ischemic change and mild to moderate global cerebral volume loss. 3. 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 Referred By: DESHAWN ANGELA Interpreted By: Kit Peña MD, 11/26/2021 7:13 PM Physical Evaluation Airway Mallampati: I TM Distance: >3 FB Neck ROM: normal Dental No notable dental history Pulmonary Pulmonary exam normal Breath sounds clear to auscultation Cardiovascular Rhythm: regular Rate: normal Cardiovascular exam normal Anesthesia Plan ASA 2 Induction Anesthesia type: peripheral nerve block as primary anesthesia and MAC Plan for Airway: nasal cannula/simple face mask Plan for Post-op Pain Plan: block, oral pain medication and as per surgeon Informed Consent . FELLER FELLER FELLER documented in this encounter Plan of Treatment Not on file documented as of this encounter Procedures Procedure Name Priority Date/Time Associated Diagnosis Comments NC AN PERIPHERAL BLOCK SINGLE-SHOT Routine 07/03/2022 7:28 AM TREE FELLER documented in this encounter Results * NC AN PERIPHERAL BLOCK SINGLE-SHOT (07/03/2022 7:28 AM TREE FELLER) Narrative Jayla Alberts CRNA - 07/03/2022 7:28 AM TREE FELLER Jayla Alberts CRNA ? 07/03/2022 ??7:29 AM Peripheral Block Performed by: Jayla Alberts CRNA Authorized by: Jayla Alberts CRNA Procedure Start: ??07/03/2022 7:19 AM Procedure Stop: ??07/03/2022 7:24 AM Patient Location: ??Pre-op Reason for Block: at surgeon's request, post-op pain management and primary anesthetic ?? patient identified, IV checked, site marked, risks and benefits discussed, consent, monitors and equipment checked, pre-op evaluation and timeout performed ?? Patient Position: ??Supine Monitoring: ??Blood pressure, continuous pulse ox, ECG/EKG and heart rate Prep: ChloraPrep ?? Draping: ??Sterile technique maintained Block Type: ??Axillary Laterality: ??Right Injection Technique: ??Single-shot Technique: ultrasound guided ?? Needle type: Medline Echogenic. Needle gauge: 24G. Needle length: 4cm. Needle Localization: ??Anatomical landmarks and ultrasound guidance Test Dose: ??Negative Local Volume: ??12 Insertion Attempts: ??1 Injection Assessment/ Attestation: ??Incremental injection, local visualized surrounding nerve on ultrasound, negative aspiration for heme, no apparent complications, no paresthesia on injection and paresthesia absent Paresthesia Pain: ??None Heart Rate Change: No ?? Risks explained: difficult placement, may be ineffective, bleeding, infection, nerve damage. Benefits explained to patient: may lower sedation and/or general anesthetic dose, possibly less pain after procedure.Timeout performed including patients name, date, and laterality. Patient participated in the timeout. Antiseptic prep. Sterile probe cover applied. ID of axillary artery. 24 g sono needle used to injected local with multiple negative aspirations. Patient tolerated procedure well. Jayla Alberts PLANT GUARD [place] ANESTHESIA Final Result documented in this encounter Visit Diagnoses Not on filedocumented in this encounter Administered Medications Inactive Administered Medications - up to 3 most recent administrations Medication Order MAR Action Action Date Dose Rate Site ceFAZolin (ANCEF) 2 g in NS 100 mL IVPB 2 g, Intravenous, at 200 mL/hr, on call pharmacy technician, 1 dose, On Wed07/03/22 at 0645, Give 2 gram dose for patients less than 120 kg. Give within 60 minutes of surgical incision., Pre-Op Given 07/03/2022 7:35 AM TREE FELLER 2 g fentaNYL (SUBLIMAZE) injection Intravenous, PRN, Starting on Wed07/03/22 at 0719, Until Wed07/03/22 at 0845, Anesthesia Intra-Op Given 07/03/2022 7:19 AM TREE FELLER 100 mcg ketamine (KETALAR) injection Intravenous, PRN, Starting on Wed07/03/22 at 0738, Until Wed07/03/22 at 0845, Anesthesia Intra-Op Given 07/03/2022 7:38 AM TREE FELLER 50 mg lactated ringers infusion at 10 mL/hr, Intravenous, Continuous, Starting on Wed07/03/22 at 0645, Until Wed07/03/22 at 1218, Infuse at TKO rate, Pre-Op Restarted 07/03/2022 8:13 AM TREE FELLER Continued by Anesthesia 07/03/2022 7:35 AM TREE FELLER 10 mL/hr New Bag 07/03/2022 6:45 AM TREE FELLER 10 mL/hr propofol (DIPRIVAN) IV bolus Intravenous, Continuous PRN, Starting on Wed07/03/22 at 0740, Until Wed07/03/22 at 0845, Anesthesia Intra-Op Rate/Dose Change 07/03/2022 8:26 AM TREE FELLER 25 mcg/kg/min 12.66 mL/hr Rate/Dose Change 07/03/2022 8:14 AM TREE FELLER 50 mcg/kg/min 25.3 2 mL/hr Rate/Dose Change 07/03/2022 8:10 AM TREE FELLER 20 mcg/kg/min 10.1 28 mL/hr ROpivacaine 1 % (NAROPIN) injection Regional, PRN, Starting on Wed07/03/22 at 0719, Until Wed07/03/22 at 0845, Anesthesia Intra-Op Given 07/03/2022 7:24 AM TREE FELLER 3 mLs Given 07/03/2022 7:23 AM TREE FELLER 3 mLs Given 07/03/2022 7:22 AM TREE FELLER 3 mLs documented in this encounter Care Teams In Store Demonstrator Relationship Specialty Start Date End Date Orlando Cortez MD [address] [place] [phone] PCP - General FAMILY PRACTICE 06/27/18 documented as of this encounter
--- OUTSIDE RECORDS SUMMARY | 2024-07-15 03:07 | XMS_ITS | Encounter Summary ---
Author Organization [facility] Address [address] [place] [address]. [place] [address] [place] [address] Care Team Providers Care It Risk Analyst Name Role Phone Orlando Cortez MD Primary Care Provider [phone] Encounter Details Date Type Department Care Team (Late st Contact Info) Description 11/14/2018 Abstract [facility] [address] [place] [address] Magali Barreto, [facility] [address] [place] [id number] Social History Tobacco Use Types Packs/Day Years [...] as of this encounter Visit Diagnoses Diagnosis Primary osteoarthritis of left shoulder Primary localized osteoarthrosis, shoulder region documented in this encounter Care Teams It Risk Analyst Relationship Specialty Start Date End Date Orlando Cortez MD [address] [place] [phone] PCP - General FAMILY PRACTICE 06/27/18 documented as of this encounter
--- OUTSIDE RECORDS SUMMARY | 2024-07-15 03:07 | XMS_ITS | Encounter Summary ---
Author Organization [facility] Address [facility] [place] [address] [place] [address] Care Team Providers Care Director Of Content Marketing Name Role Phone Orlando Cortez MD Primary Care Provider [phone] Encounter Details Date Type Department Care Team (Latest Contact Info) Description 04/04/2020 Travel Social History Tobacco Use Types Packs/Day [...] PM CDT documented as of this encounter Plan of Treatment Not on file documented as of this encounter Visit Diagnoses Not on filedocumented in this encounter Care Teams Director Of Content Marketing Relationship Specialty Start Date End Date Orlando Cortez MD [address] [place] [phone] PCP - General FAMILY PRACTICE 06/27/18 documented as of this encounter
--- OUTSIDE RECORDS SUMMARY | 2024-07-15 03:07 | XMS_ITS | Encounter Summary ---
Author Organization [facility] Address [address] [place] [address]. [place] [address] [place] [address] Care Team Providers Care Utility Worker Driver Name Role Phone Orlando Cortez MD Primary Care Provider [phone] Reason for Visit * Reason Comments Follow Up Encounter Details Date Type Department Care Team (Late st Contact Info) Description 01/05/2019 11:00 AM CDT Office Visit [address] [place] [address] Shaw Connors MD Follow Up Social History Tobacco Use Types Packs/Day Years [...] Sign Reading Time Taken Comments Blood Pressure 131/86 01/05/2019 10:59 AM CDT Pulse 75 01/05/2019 10:59 AM CDT Temperature - - Respiratory Rate 16 01/05/2019 10:59 AM CDT Oxygen Saturation - - Inhaled Oxygen Concentration - - Weight 87.8 kg (193 lb 9 oz) 01/05/2019 10:59 AM CDT Height 177.8 cm (5' 10) 01/05/2019 10:59 AM CDT Body Mass Index 27.77 01/05/2019 10:59 AM CDT documented in this encounter Progress Notes * Shaw Connros MD - 01/05/2019 11:00 AM CDT Hematology/Oncology Note Identifying Data Ernestine Salinas is a 78-year-old female CC: Follow Up History of Present Illness: Ms. Salinas returns for follow-up for history of lucent lesion in theC7 vertebra. Prior workup with MRI and CTs showed multiple vertebral hemangiomas. There was no discrete soft tissue mass or bony lesion noted. Patient states that she is doing okay. Neck pain is stable. She denies tingling or numbness in her hands. No weakness reported. She also denies fever or night sweats or unintentional weight loss. Shereports worsening of right hip pain for the last 2 weeks. She had hip replacement in 2016. She denies recent fall. Oncology History: Cancer Staging No matching staging information was found for the patient. No history exists. Review of Systems: General: No symptoms Skin: No rash Head: No symptoms Nose/ Sinuses: No Symptoms Mouth and Throat: No Symptoms Neck: No Symptoms Respiratory: No symptoms Cardiac: No Symptoms Gastrointestinal: No symptoms Urinary: : No Symptoms Musculoskeletal: Right hip pain Neurologic: Oriented X3 Endocrine: No Symptoms Hematologic/Lymphatic: No symptoms Pertinent History: Past Medical History: Diagnosis Date ??? Anxiety ??? Depression ??? DJD (degenerative joint disease) ??? Hyperlipidemia ??? Memory changes ??? Neuropathy ??? Osteoporosis ??? Spinal stenosis Pertinent family history includes Lung Cancer in her father. Social History Socioeconomic History ??? Marital status: Spouse name: Not on file ??? Number of children: Not on file ??? Years of education: Not on file ??? Highest education level: Not on file Occupational History ??? Not on file Social Needs ??? Financial resource strain: Not on file ??? Food insecurity: Worry: Not on file Inability: Not on file ??? Transportation needs: Medical: Not on file Non-medical: Not on file Tobacco Use ??? Smoking status: Former Smoker ??? Smokeless tobacco: Never Used Substance and Sexual Activity ??? Alcohol use: No Frequency: Never ??? Drug use: No ??? Sexual activity: No Lifestyle ??? Physical activity: Days per week: Not on file Minutes per session: Not on file ??? Stress: Not on file Relationships ??? Social connections: Talks on phone: Not on file Gets together: Not on file Attends mandaen service: Not on file Active member of club or organization: Not on file Attends meetings of clubs or organizations: Not on file Relationship status: Not on file ??? Intimate partner violence: Fear of current or ex partner: Not on file Emotionally abused: Not on file Physically abused: Not on file Forced sexual activity: Not on file Other Topics Concern ??? Not on file Social History Narrative ??? Not on file Past Surgical History: Procedure Laterality Date ??? PARTIAL HIP REPLACEMENT Right Current Outpatient Medications Medication Sig ??? memantine 10 MG tablet Take 10 mg by mouth 2 (two) times daily. ??? aspirin 81 MG tablet Take 81 mg by mouth. ??? atorvastatin 40 MG tablet ??? donepezil (ARICEPT) 10 MG Tab Take 1 tablet by mouth daily. ??? duloxetine 60 MG capsule Take 60 mg by mouth daily. ??? gabapentin 300 MG capsule Take 1 capsule (300 mg total) by mouth 2 (two) times daily. ??? Melatonin 10 MG Tab Take 1 tablet by mouth. ??? Misc Natural Products (OSTEO BI-FLEX TRIPLE STRENGTH) Tab Take 1 tablet by mouth daily. ??? Multiple Vitamins-Minerals (CENTRUM SILVER ULTRA WOMENS) Tab Take 1 tablet by mouth daily. ??? [place]-3 Fatty Acids (FISH OIL PEARLS) 300 MG Cap ??? raloxifene (EVISTA) 60 MG tablet Take 1 tablet by mouth daily. ??? sertraline 50 MG tablet ??? TiZANidine HCl 4 MG Cap Take 4 mg by mouth. ??? traMADol 50 MG tablet ??? triamcinolone 0.1 % cream No Known Allergies Objective Vitals and ECOG Performance Status Height: 5' 10 (1.778 m) , Weight: 87.8 kg (193 lb 9 oz) , BSA (Calculated - sq m): 2.08 sq meters , BP: 131/86 , Temp: 98 ??F (36.7 ??C) , Pulse: 75 , Resp: 16 Physical Exam Constitutional General appearance: No acute distress, well appearing and well nourished. Head and Face Head and face: Normal. Eyes Conjunctiva and lids: No erythema, swelling or discharge. Ears, Nose, Mouth, and Throat Oropharynx: Normal with no erythema, edema, exudate or lesions. Neck Neck:Supple, No enlarged lymph nodes or masses felt Pulmonary Respiratory effort: No increased work of breathing or signs of respiratory distress. Auscultation of lungs: Clear to auscultation. Cardiovascular Auscultation of heart: Normal rate and rhythm, normal S1 and S2, no murmurs. Abdomen Abdomen: Non-tender, no masses. Liver and spleen: No hepatomegaly or splenomegaly. Lymphatic Palpation of lymph nodes in neck: No lymphadenopathy. Musculoskeletal Gait and station: Painful, limping gait on right side Neurological Orientation to person, place and time: Normal. Psychiatric Mood and affect: Normal. Laboratory None Imaging None Assessment and Plan Encounter Diagnose(s) ICD-10-CM ICD-9-CM 1. Bone lesion M89.9 733.90 CBC W/DIFF AUTOMATED COMPREHENSIVE METABOLIC PANEL 2. Renal lesion N28.9 593.9 3. Cervical pain M54.2 723.1 4. Pain of right hip joint M25.551 719.45 XR HIP RT 2V 77 yo ww with DJD has MRI abnormality of cervical vertebra(C7) ?? 1.Bone lesion: Likely benign -She had extensive workup :Bone scans(04/2017 and 10/2017)uptake in pattern s/of degenerative disease , MRI C spine-several punctate foci of increased T2 signal within the posterior elements of C7;CT CAP showed multiple vertebral hemangiomas;Repeat CT C spine 06/2018 showed degenerative changes only,no discrete lesion or mass -Prior SPEP/MILEY and Urine MILEY- No monoclonal protein;Mammogram(02/2017- BIRADS-2)?? -She did not have convincing e/of malignancy at this time;The C7 lesion is likely benign(sclerosed hemangioma);She has refused a biopsy -She is clinically stable. Neck pain has not worsened and is likely from degenerative disease ?? 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 3.Right hip pain: s/p R hip arthroplasty in 2016 -X ray hip grossly loks stable-will follow final read ?? RTC in 9 months with labs Counseling:The patient was counseled regarding instructions for management, prognosis, patient and family education and impressions Time Spent: Approximately 20 minutes was spent in direct patient consultation and the majority of that time (>50%) was spent on counseling and coordination of care. SHAW CONNORS MD documented in this encounter Plan of Treatment Not on file documented as of this encounter Procedures Procedure Name Priority Date/Time Associated Diagnosis Comments XR HIP RT 2V Routine 01/05/2019 12:09 PM CDT Pain of right hip joint documented in this encounter Results * (ABNORMAL) COMPREHENSIVE METABOLIC PANEL (12/28/2019 11:54 AM CDT) SODIUM S/P/B 144 136 - 145 MMOL/L 12/28/2019 12:18 PM CDT [facility] POTASSIUM S/P/B 3.5 3.5 - 5.1 MMOL/L 12/28/2019 12:18 PM CDT [facility] CHLORIDE S/P/B 105 98 - 107 MMOL/L 12/28/2019 12:18 PM CDT [facility] CO2 33.9(H) 21.0 - 32.0 MMOL/L 12/28/2019 12:18 PM CDT [facility] GLUCOSE 141(H) 70 - 99 MG/DL 12/28/2019 12:18 PM CDT [facility] Comment: FASTING GLUCOSE 100 TO 125 MG/DL IS CONSISTENT WITH IMPAIRED FASTING GLUCOSE. FASTING GLUCOSE >125 MG/DL IS CONSISTENT WITH DIABETES. RANDOM GLUCOSE >200 MG/DL WITH HYPERGLYCEMIC SYMPTOMS IS CONSISTENT WITH DIABETES. PER ADA GUIDELINES BUN 14 6 - 24 MG/DL 12/28/2019 12:18 PM T [facility] CREATININE S/P/B 0.97 0.55 - 1.02 MG/DL 12/28/2019 12:18 PM T [facility] CALCIUM S/P/B 8.7 8.4 - 10.5 MG/DL 12/28/2019 12:18 PM T [facility] BILIRUBIN TOTAL S/P/B 1.2(H) 0.2 - 1.0 MG/DL 12/28/2019 12:18 PM T [facility] Comment: THIS ASSAY IS NOT RECOMMENDED FOR PATIENTS UNDERGOING TREATMENT WITH ELTROMBOPAG DUE TO THE POTENTIAL FOR FALSELY ELEVATED RESULTS. ALKALINE PHOSPHATASE S/P/B 110 55 - 142 U/L 12/28/2019 12:18 PM [facility] AST 16 15 - 37 U/L 12/28/2019 12:18 PM [facility] ALT 23 14 - 59 U/L 12/28/2019 12:18 PM T [facility] TOTAL PROTEIN S/P/B 6.2(L) 6.4 - 8.2 G/DL 12/28/2019 12:18 PM T [facility] ALBUMIN S/P/B 3.3(L) 3.4 - 5.0 G/DL 12/28/2019 12:18 PM [facility] ANION GAP 5.1 5.0 - 15.0 MMOL/L 12/28/2019 12:18 PM [facility] OSMOLALITY (CALC) 301 MOSM/KG 020 12:18 PM T [facility] Comment:REFERENCE RANGE NOT ESTABLISHED EGFR NON-AFR. AMER. 56(L) >89 ML/MIN/1. 73 M2 12/28/2019 12:18 PM T [facility] EGFR AFR. AMER. 65(L) >89 ML/MIN/1. 73 M2 12/28/2019 12:18 PM CDT [facility] GFR NOTES GFR REFERENCE S: 12/28/2019 12:18 PM CDT [facility] Comment: THE ESTIMATED GFR IS CALCULATED USING THE 2009 CKD-EPI EQUATION. THE FOLLOWING CATEGORIES FOR GRADING RENAL FUNCTION ARE RECOMMENDED BY THE INTERNATIONAL SOCIETY OF NEPHROLOGY (KDIGO 2012 CLINICAL PRACTICE GUIDELINE). G1,NORMAL OR HIGH: >89 ml/min/1.73 m2 G2,MILDLY DECREASED: 60-89 ml/min/1.73 m2 G3A,MILDLY TO MODERATELY DECREASED: 45-59 ml/min/1.73 m2 G3B,MODERATELY TO SEVERELY DECREASED: 30-44 ml/min/1.73 m2 G4,SEVERELY DECREASED: 15-29 ml/min/1.73 m2 G5,KIDNEY FAILURE: <15 ml/min/1.73 m2 12/28/2019 11:5 4 AM CDT us Shaw Connors MD LABORATORY Zita l Result [facility] [address] [place] [id number], * (ABNORMAL) CBC W/DIFF AUTOMATED (12/28/2019 11:54 AM CDT) WBC 4.9 4.5 - 10.8 x10'3/uL 12/28/2019 11:59 AM CDT [facility] RBC 4.86 4.10 - 5.40 x10'6/uL 12/28/2019 11:59 AM CDT [facility] HGB 14.2 12.0 - 16.0 G/DL 12/28/2019 11:59 AM CDT [facility] HCT 46.7 36.0 - 47.0 % 12/28/2019 11:59 AM CDT [facility] MCV 96.1 78.0 - 100.0 FL 12/28/2019 11:59 AM CDT [facility] MCH 29.2 27.0 - 31.0 PG 12/28/2019 11:59 AM CDT [facility] MCHC 30.4(L) 33.0 - 36.0 G/DL 12/28/2019 11:59 AM CDT [facility] RDW 13.1 11.5 - 14.5 % 12/28/2019 11:59 AM CDT [facility] PLT 159 150 - 350 x10'3/uL 12/28/2019 11:59 AM CDT [facility] MPV 11.2(H) 7.4 - 10.4 FL 12/28/2019 11:59 AM CDT [facility] DIFFERENTIAL COMMENT NORMAL REFERENCE RANGE NOT ESTABLISHED FOR THE PROPORTIONAL LEUKOCYTE DIFFERENTIAL. 12/28/2019 11:59 AM CDT [facility] SEG NEUTROPHILS 58.3 % 0 11:59 AM CDT [facility] LYMPHOCYTES 30.0 % 12/28/2019 11:59 AM CDT [facility] MONOCYTES 7.2 % 12/28/2019 11:59 AM CDT [facility] EOSINOPHILS 3.1 % 12/28/2019 11:59 AM CDT [facility] BASOPHILS 1.0 % 12/28/2019 11:59 AM CDT [facility] IMMATURE GRANS % 0.4 % 12/28/19 20 11:59 AM CDT [facility] NRBC 0.0 % 12/28/2019 11:59 AM CDT [facility] ABS. NEUTROPHILS 2.84 1.60 - 8.30 x10'3/uL 12/28/2019 11:59 AM CDT [facility] ABS. LYMPHOCYTES 1.46 0.80 - 4.70 x10'3/uL 12/28/2019 11:59 AM CDT [facility] ABS. MONOCYTES 0.35 0.00 - 1.50 x10'3/uL 12/28/2019 11:59 AM CDT [facility] ABS. EOSINOPHILS 0.15 0.00 - 0.40 x10'3/uL 12/28/2019 11:59 AM CDT [facility] ABS. BASOPHILS 0.05 0.00 - 0.20 x10'3/uL 12/28/2019 11:59 AM CDT [facility] ABS. IMMATURE GRANULOCYTES 0.02 0.00 - 0.03 x10'3/uL 12/28/2019 11:59 AM CDT [facility] ABS. NUCLEATED RBC'S 0.00 0.00 x10'3/uL 12/28/2019 11:59 AM CDT [facility] 12/28/2019 11:5 4 AM CDT us Shaw Connors MD LABORATORY Zita l Result [facility] [address] [place] [address], * XR HIP RT 2V (01/05/2019 12:09 [...] By: Rob Flores MD, 01/05/2019 6:18 PM us Shaw Connors MD GENERAL IMAGING Zita l Result documented in this encounter Visit Diagnoses Diagnosis Bone lesion- Primary Disorder of bone and cartilage, unspecified Renal lesion Unspecified disorder of kidney and ureter Cervical pain Cervicalgia Pain of right hip joint documented in this encounter Care Teams Utility Worker Driver Relationship Specialty Start Date End Date Orlando Cortez MD [address] [place] [phone] PCP - General FAMILY PRACTICE 06/27/18 documented as of this encounter
--- OUTSIDE RECORDS SUMMARY | 2024-07-15 03:07 | XMS_ITS | Encounter Summary ---
Author Organization [facility] Address [facility] [facility] [place] [address] [place] [address] Care Team Providers Care Grain Merchandiser Name Role Phone Orlando Cortez MD Primary Care Provider Reason for Visit * Auth/Cert Specialty Diagnoses / Procedures Referred By Contac t Referred To Contact Diagnoses H/O TA Procedures COLONOSCOPY,DIAGNOSTIC COLONOSCOPY Referral ID Status Reason Start Date Expiration Date Visits Re quested Visits Authorized [id number] 1 1 Encounter Details Date Type Department Care Team (Late st Contact Info) Description 12/23/2021 9:15 AM CDT - 12/23/2021 9:47 AM CDT Surgery [facility] [facility] [address] [place] [address] Cricket Mercer MD [address] [facility] [place] [id number] COLONOSCOPY WITH POLYPECTOMY Surgery Details Date/Time Status Location OR Service Patient Class Case Class Case Type Trauma Case? 12/23/2021 9:15 AM Posted [facility] Endo Gastroenterology Short Stay/Outpa tient Surgery No Panel 1 Procedure LRB Anes Op Region Wound Class Comments COLONOSCOPY WITH POLYPECTOMY N/A Monitor Anesthesia Care Colon Clean Contaminated Surgeon Surgeon Role Service Panel Cricket Mercer MD Primary Gastroenterology 1 Case Notes VACCINATED. PCR NEG. documented in this encounter Social History Tobacco [...] Recorded In the last 10 days, have kati u been in contact with someone who was confirmed or suspected to have Coronavirus/COVID-19? No / Unsure 12/23/2021 7:54 AM CDT documented as of this encounter Last Filed Vital Signs Vital Sign Reading Time Taken Comments Blood Pressure 166/88 12/23/2021 8:21 AM CDT Pulse 81 12/23/2021 8:21 AM CDT Temperature 35.7 ??C (96.2 ??F) 12/23/2021 8:21 AM CD T Respiratory Rate 20 12/23/2021 8:21 AM CDT Oxygen Saturation 99% 12/23/2021 8:21 AM CDT Inhaled Oxygen Concentration - - Weight 88.5 kg (195 lb) 12/18/2021 12:49 PM CDT Height 177.8 cm (5' 10) 12/18/2021 12:49 PM CDT Body Mass Index 27.98 12/18/2021 12:49 PM CDT documented in this encounter Discharge Instructions * Attachments The following attachments cannot be sent through Care Everywhere. * Colonoscopy Discharge Instructions (Angolan) * Moderate Sedation in Adults Discharge Instructions (Angolan) * Colon Polypectomy Discharge Instructions (Angolan) * Diverticulosis Discharge Instructions (Angolan) * High Fiber Diet (Angolan) documented in this encounter Medications at Time [...] tablet Take 10 mg by mouth daily. [place]-3 Fatty Acids (FISH OIL PEARLS) 300 MG [...] Procedure Name Priority Date/Time Associated Diagnosis Comments COLONOSCOPY FLX DX W/COLLJ SPEC WHEN PFRMD 12/23/2021 9:17 AM CDT H/O TA Case Notes VACCINATED. PCR NEG. COLONOSCOPY 12/23/2021 6:42 AM CDT PATHOLOGY Routine 12/23/2021 12:00 AM CDT documented in this encounter Results * Colonoscopy (12/23/2021 6:42 AM CDT) us Cricket Mercer MD GI PROCEDURE ORDERABLES Final Result * Pathology (12/23/2021 12:00 AM CDT) PATHOLOGY [facility] ? Department of Laboratory Medicine ?[address] ?[place] [address] ? , extension [phone] ? Pathology Report ? Surgical Pathology Report Name: YOANDY SALINAS ? Specimen #: [id number] Age: 4 1940 (Age: 81) ? Location: [facility] Sex: F ?Procedure Date: 12/23/2021 Hospital #: [id number] ?Date Received: 12/24/2021 Date Reported: 12/26/2021 Provider: CRICKET MERCER MD Source: A: Colon, ascending, polyp B: Colon, sigmoid, polyp Clinical History: History of tubulovillous adenoma. Gross Description: Received in two parts: A) Received in formalin, labeled with a patient label and as ascending colon polyp are three pieces of romero tissue ranging from 0.1 to 0.2 cm. ??The specimen is entirely submitted in cassette A1. B) Received in formalin, labeled with a patient label and as sigmoid colon polyp are three pieces of romero tissue ranging from 0.1 to 0.2 cm. ??The specimen is entirely submitted in cassette B1. Gross examination (when applicable), interpretation and sign-out were performed at [facility], [address] [place] [address], [id number]. FINAL DIAGNOSIS: A) COLON, ASCENDING, POLYP, BIOPSY: ? - TUBULAR ADENOMA, TWO FRAGMENTS. ? - COLONIC MUCOSA WITH FOCAL DILATED CRYPTS, TWO FRAGMENTS. B) COLON, SIGMOID, POLYP, BIOPSY: ? - TUBULAR ADENOMA, ONE FRAGMENT. ? - HYPERPLASTIC POLYP, TWO FRAGMENTS. ?? Electronically Signed Out ? C. Rod Grove M.D. [facility] Tissue specimen (specimen) COLON STRUCTURE / Unknown 12/23/2021 9:34 AM CDT Tissue specimen (specimen) COLON STRUCTURE / Unknown 12/23/2021 9:46 AM CDT us Cricket Mercer MD PATHOLOGY/CYTOLOGY ORDERABLES Final Result [facility] [address] [place] [address], [id number] documented in this encounter Visit Diagnoses Not on filedocumented in this encounter Administered Medications Inactive Administered Medications - up to 3 most recent administrations Medication Order MAR Action Action Date Dose Rate Site lactated ringers infusion at 10 mL/hr, Intravenous, Continuous, Starting on Wed12/23/21 at 0830, Until Wed12/23/21 at 1254, Infuse at TKO rate, Pre-Op Restarted 12/23/2021 9:48 AM CDT Continued by Anesthesia 12/23/2021 9:22 AM CDT 10 mL/hr New Bag 12/23/2021 8:28 AM CDT 10 mL/hr documented in this encounter Active and Recently Administered Medications Times are shown in CDT. Continuous Medication Order 12/21/2021 12/22/2021 12/23/2021 lactated ringers infusion at 10 mL/hr, Intravenous, Continuous, Starting on Wed12/23/21 at 0830, Until Wed12/23/21 at 1254, Infuse at TKO rate, Pre-Op 0828 (New Bag - Prov ider: Krys Parish RN)0922 (Continued by Anesthesia - Provider: Lorraine Stewart CRNA)0947 (Paused - Provider: Lorraine Stewart CRNA - Comment: Switch to gravity)0948 (Restarted - Provider: Lorraine Stewart CRNA)1031 (Infusion Stop Time - Provider: Kellen Watkins RN) documented in this encounter Care Teams Grain Merchandiser Relationship Specialty Start Date End Date Orlando Cortez MD [address] [place] [phone] PCP - General FAMILY PRACTICE 06/27/18 documented as of this encounter
--- OUTSIDE RECORDS SUMMARY | 2024-07-15 03:07 | XMS_ITS | Encounter Summary ---
Author Organization [facility] Address [address] [place] [address]. [place] [address] [place] [address] Care Team Providers Care Rabble Furnace Tender Name Role Phone Orlando Cortez MD Primary Care Provider Reason for Visit * Reason Comments New Patient Wrist Pain DOI 06/26/2022 RIGHT Encounter Details Date Type Department Care Team (Late st Contact Info) Description 07/02/2022 11:15 AM TANKER DRIVER Office Visit [facility] [address], [address] [address] Magali Barreto, [facility] [address] [place] [address] [place] [address] New Patient; Wrist Pain (DOI 06/26/2022 RIGHT ) Social History Tobacco Use Types Packs/Day [...] In the last 10 days, have kati rios been in contact with someone who was confirmed or suspected to have Coronavirus/COVID-19? No / Unsure 07/02/2022 10:53 AM TANKER DRIVER documented as of this encounter Last Filed Vital Signs Vital Sign Reading Time Taken Comments Blood Pressure - - Pulse - - Temperature - - Respiratory Rate - - Oxygen Saturation - - Inhaled Oxygen Concentration - - Weight 84.4 kg (186 lb) 07/02/2022 10:59 AM TANKER DRIVER Height 177.8 cm (5' 10) 07/02/2022 10:59 AM TANKER DRIVER Body Mass Index 26.69 07/02/2022 10:59 AM TANKER DRIVER documented in this encounter Progress Notes * Magali Barreto, FURNITURE CLEANER-BC - 07/02/2022 11:15 AM CST Chief Complaint: New Patient and Wrist Pain (DOI 06/26/2022 RIGHT ) History of Present Illness: Ernestine Salinas is a 81-year-old female who presents to the office for New Patient and Wrist Pain (DOI 06/26/2022 RIGHT ) Patient comes in the office today for injury. She states on 06/26/2022 she fell. She states was trying to brace her fall with the RIGHT hand. She states has swelling. She denies any bruising. She states has tingling in the 1st finger of the RIGHT hand. She denies any numbness. She states seen [facility] office then sent her to get an Xray done at [facility]. She received a brace for the RIGHT wrist at the office. She states elevates and only iced first day. She locates the pain in the toptop of the wrist. She is RIGHT hand dominant. She denies any night pain. She states only taking Tylenol due to the dizziness caused by the Hydrocodone that was given. She states might of broken RIGHTwrist when she was a kid. Daughter states trying to have patient use the cane more for stability. ROS: See HPI for pertinent positives Problem [...] POLYPECTOMY performed by Cricket Hung MD at [facility] OR ??? EYE SURGERY ??? PARTIAL HIP [...] by mouth daily., Disp: , Rfl: ??? [place]-3 Fatty Acids (FISH OIL PEARLS) 300 MG [...] index is 26.69 kg/m??. Last Recorded Weight 07/02/22 1059 Weight: 84.4 kg (186 lb) Physical exam: Constitutional: Alert and in no acute distress. Neurological: The patient was oriented to person, place, and time. Eyes: The sclera and conjunctiva were normal ENT: Hearing was normal. Neck: The appearance of the neck was normal. Cardiovascular: Normal pulses, regular rate and rhythm Pulmonary: No respiratory distress, clear to auscultation bilaterally Skin: No injuries or skin lesion. Musculoskeletal: Exam of right wrist today demonstrates tenderness over distal radius with palpation, mild swelling and ecchymosis, motor and sensation intact, good capillary refill, visible deformity, palpable radial pulse. Results: X-ray of right wrist today demonstrates distal radius fracture with slightly increased dorsal angulation with a small fracture of the ulnar styloid. 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 Procedure: Procedure: Splint application Material: 4 inch Plaster using 3 rolls, Webril and Jasiel wrap Type: Long arm splint. Patient Status: neurovascular exam after splint/cast application was unchanged. Follow up: Ernestine Salinas was instructed to follow up in 10-14 days. Assessment: Encounter Diagnose(s) ICD-10-CM ICD-9-CM SNOMED CT(R) 1. Other closed fracture of distal end of right radius, initial encounter S52.591A 813.42 CLOSED FRACTURE OF DISTAL END OF RADIUS ibuprofen (MOTRIN) 800 MG tablet Plan: Reviewed imaging with patient and daughter in the office today. Patient was in a thumb spica Velcrobrace which was removed in the office and she was placed in a sugar-tong splint and tolerated well.Her ring was also removed in the office as well. I have reviewed imaging with Dr. Lara and we have recommended due to the angulation and displacement to proceed with a open reduction internal fixat ion of the wrist. I have reviewed risks and benefits with patient and daughter in the office today and they have elected to proceed with surgical intervention. Patient does have a history of memory issues and daughter was questioning about assistance at home since she will be leaving out of the town on Wednesday and will not return to the following week. She does have a caregiver coming in at least o nce a day for an hour to assist her mother with her care while she has gone. She will also reach out to possibly help at home for assistance as well. Patient's daughter is requesting something more for pain but she has already had [place] and had increased dizziness and given her memory issues as well as being home alone I am reluctant to give Percocet and having increased confusion. She is already taking tramadol routinely so we will go ahead and incorporate ibuprofen as well and a prescription was sent to the pharmacy. Prior to leaving the office she was fitted and applied with a sling to assist with comfort. She will follow-up in 10 to 14 days postoperatively for reevaluation and short armcast application. Follow up: Return for Post-Op, Suture removal, Visit with imaging after splint removal (RIGHT wrist). RADHA HURTADO ER DRIVER documented in this encounter Plan of Treatment Not on file documented as of this encounter Visit Diagnoses Diagnosis Other closed fracture of distal end of right radius, initial encounter- Primary documented in this encounter Care Teams Rabble Furnace Tender Relationship Specialty Start Date End Date Orlando Cortez MD [address] [place] [phone] PCP - General FAMILY PRACTICE 06/27/18 documented as of this encounter
--- OUTSIDE RECORDS SUMMARY | 2024-07-15 03:07 | XMS_ITS | Encounter Summary ---
Author Organization [facility] Address [facility] [place] [address] [place] [address] Care Team Providers Care Metal Spinner Name Role Phone Orlando Cortez MD Primary Care Provider [phone] Reason for Visit * Imaging (Routine) - Closed Specialty Diagnoses / Procedures Referred By Contac t Referred To Contact RADIOLOGY Diagnoses Ovarian mass Procedures US PELVIC NON OB COMP TV US PELVIC NON OB COMP TA Akira Maldonado MD [address] [place] [address] Phone: tel: fax: Referral ID Status Reason Start Date Expiration Date Visits Re quested Visits Authorized [id number] Closed 11/26/2018 12/28/2019 1 1 Encounter Details Date Type Department Care Team (Latest Contact Info) Description 01/23/2019 9:55 AM CDT - 01/23/2019 9:56 AM CDT Hospital Encounter [facility] [address] [place] [address] Akira Maldonado MD [address] [place] [address] Discharge Disposition: Home or Self Care (Routine [...] tablet Take 10 mg by mouth daily. [place]-3 Fatty Acids (FISH OIL PEARLS) 300 [...] 2 (two) times daily. 60 capsule 2 01/11/2019 05/18/2019 Misc Natural Products (OSTEO BI-FLEX TRIPLE STRENGTH) [...] Procedure Name Priority Date/Time Associated Diagnosis Comments US PELVIC NON OB COMP TV Routine 01/23/2019 11:44 AM CDT Ovarian mass documented in this encounter Results * US PELVIC NON OB COMP TV (01/23/2019 11:44 AM CDT) Anatomical Region Laterality Modality Pelvis Ultrasound 01/23/2019 2:51 PM CDT Impressions 01/23/2019 3:07 PM CDT IMPRESSION: 1. PERSISTENT ENLARGEMENT OF THE RIGHT OVARY SUGGEST THE PRESENCE OF A COMPLEX CYSTIC MASS. THIS IS HOWEVER UNCHANGED IN COMPARISON TO THE PREVIOUS STUDY OF 01/11/2018. THE LACK OF SIGNIFICANT INTERVAL CHANGE WOULD TEND TO FAVOR NONAGGRESSIVE ETIOLOGY. NO ASSOCIATED ASCITES. 2. NORMAL SONOGRAPHIC APPEARANCE OF THE UTERUS. LEFT OVARY COULD NOT BE VISUALIZED DUE TO BOWEL GAS. NO LEFT ADNEXAL MASS OR FLUID COLLECTION. Signed: Gilbert Martínez MD Interpreted By: Gilbert Martínez MD, 01/23/2019 2:51 PM Narrative 01/23/2019 3:07 PM CDT PATIENT NAME: YOANDY Mike LAVON EXAM: Ultrasound pelvis nonobstetric transvaginal DATE OF EXAM: 01/23/2019 COMPARISON EXAM: 01/11/2018 INDICATION: Right adnexal/ovarian mass follow-up TECHNIQUE: Longitudinal and transverse grayscale images of the pelvic structures using transvaginal technique. FINDINGS: The uterus is normal in size and anteverted measuring 5.2 x 2.5 x 4.1 cm. No uterine mass lesion is demonstrated. Endometrial stripe grossly unremarkable with 4 mm thickness. No abnormal fluid within the uterus. No significant fluid in the cul-de-sac. Right ovary is visualized and is again somewhat large suggest the presence of a small complex cystic mass. Overall size of the right ovary is unchanged in comparison to the previous study measured 4.2 x 2.4 x 3.9 cm. The lack of interval change would favor nonaggressive etiology. There is no associated ascites. Color Doppler demonstrates normal blood flow to the right ovary. Left ovary could not be well visualized. No left adnexal mass or fluid collection. Procedure Note Gilbert Martínez MD - 01/23/2019 PATIENT NAME: YOANDY SALINAS EXAM: Ultrasound pelvis nonobstetric transvaginal DATE OF EXAM: 01/23/2019 COMPARISON EXAM: 01/11/2018 INDICATION: Right adnexal/ovarian mass follow-up TECHNIQUE: Longitudinal and transverse grayscale images of the pelvic structures using transvaginal technique. FINDINGS: The uterus is normal in size and anteverted measuring 5.2 x 2.5 x 4.1cm. No uterine mass lesion is demonstrated. Endometrial stripe grossly unremarkable with 4 mm thickness. No abnormal fluid within the uterus.No significant fluid in the cul-de-sac. Right ovary is visualized and is again somewhat large suggest thepresence of a small complex cystic mass. Overall size of the right ovary is unchanged in comparison to the previous study measured 4.2 x 2.4 x 3.9cm. The lack of interval change would favor nonaggressive etiology. There isno associated ascites. Color Doppler demonstrates normal blood flow to the right ovary. Left ovary could not be well visualized. No left adnexal mass or fluid collection. IMPRESSION: 1. PERSISTENT ENLARGEMENT OF THE RIGHT OVARY SUGGEST THE PRESENCE OF A COMPLEX CYSTIC MASS. THIS IS HOWEVER UNCHANGED IN COMPARISON TO THE PREVIOUS STUDY OF 01/11/2018. THE LACK OF SIGNIFICANT INTERVAL CHANGEWOULD TEND TO FAVOR NONAGGRESSIVE ETIOLOGY. NO ASSOCIATED ASCITES. 2. NORMAL SONOGRAPHIC APPEARANCE OF THE UTERUS. LEFT OVARY COULD NOT BE VISUALIZED DUE TO BOWEL GAS. NO LEFT ADNEXAL MASS OR FLUID COLLECTION. Signed: Gilbert Martínez MD Interpreted By: Gilbert Martínez MD, 01/23/2019 2:51 PM us Akira Maldonado MD ULTRASOUND Final Result documented in this encounter Visit Diagnoses Diagnosis Ovarian mass Unspecified noninflammatory disorder of ovary, fallopian tube, and broad ligament documented in this encounter Care Teams Metal Spinner Relationship Specialty Start Date End Date Orlando Cortez MD [address] [place] [phone] PCP - General FAMILY PRACTICE 06/27/18 documented as of this encounter
--- OUTSIDE RECORDS SUMMARY | 2024-07-15 03:07 | XMS_ITS | Encounter Summary ---
Author Organization [facility] Address [address] [place] [address]. [place] [address] [place] [address] Care Team Providers Care Health Practice Manager Name Role Phone Orlando Cortez MD Primary Care Provider [phone] Reason for Visit * Reason Onset Date Comments Medication 05/18/2019 Encounter Details Date Type Department Care Team (Late st Contact Info) Description 05/18/2019 Telephone [facility] [address] [place] [address] Joselito Alexander MD [address] [place], [place] [address] Medication Social History Tobacco Use Types Packs/Day [...] site documented in this encounter Care Teams Health Practice Manager Relationship Specialty Start Date End Date Orlando Cortez MD [address] [place] [phone] PCP - General FAMILY PRACTICE 06/27/18 documented as of this encounter
--- OUTSIDE RECORDS SUMMARY | 2024-07-15 03:07 | XMS_ITS | Encounter Summary ---
Author Organization [facility] Address [facility] [place] [address] [place] [address] Care Team Providers Care Superintendent Schools Name Role Phone Orlando Cortez MD Primary Care Provider Encounter Details Date Type Department Care Team (Latest Contact Info) Description 12/28/2019 11:20 AM CDT - 12/28/2019 11:59 PM CDT Hospital Encounter [facility] [address] [place] [address] Hero Webber i, MD Discharge Disposition: Home or Self Care (Routine [...] have Coronavirus / COVID-19? No / Unsure 12/28/2019 11:16 AM CDT documented as of this encounter Medications at [...] tablet Take 10 mg by mouth daily. [place]-3 Fatty Acids (FISH OIL PEARLS) 300 MG [...] mouth 2 (two) times daily. 180 capsule 11/22/2019 02/23/2020 Misc Natural Products (OSTEO BI-FLEX TRIPLE STRENGTH) [...] Procedure Name Priority Date/Time Associated Diagnosis Comments COMPREHENSIVE METABOLIC PANEL Routine 12/28/2019 11:54 AM CDT Bone lesion CBC W/DIFF AUTOMATED Routine 12/28/2019 11:54 AM CDT Bone lesion documented in this encounter Results * (ABNORMAL) COMPREHENSIVE METABOLIC PANEL (12/28/2019 11:54 AM CDT) SODIUM S/P/B 144 136 - 145 MMOL/L 12/28/2019 12:18 PM CDT [facility] POTASSIUM S/P/B 3.5 3.5 - 5.1 MMOL/L 12/28/2019 12:18 PM CDT [facility] CHLORIDE S/P/B 105 98 - 107 MMOL/L 12/28/2019 12:18 PM T [facility] CO2 33.9(H) 21.0 - 32.0 MMOL/L 12/28/2019 12:18 PM T [facility] GLUCOSE 141(H) 70 - 99 MG/DL 12/28/2019 12:18 PM T [facility] Comment: FASTING GLUCOSE 100 TO 125 MG/DL IS CONSISTENT WITH IMPAIRED FASTING GLUCOSE. FASTING GLUCOSE >125 MG/DL IS CONSISTENT WITH DIABETES. RANDOM GLUCOSE >200 MG/DL WITH HYPERGLYCEMIC SYMPTOMS IS CONSISTENT WITH DIABETES. PER ADA GUIDELINES BUN 14 6 - 24 MG/DL 12/28/2019 12:18 PM T [facility] CREATININE S/P/B 0.97 0.55 - 1.02 MG/DL 12/28/2019 12:18 PM T [facility] CALCIUM S/P/B 8.7 8.4 - 10.5 MG/DL 12/28/2019 12:18 PM T [facility] BILIRUBIN TOTAL S/P/B 1.2(H) 0.2 - 1.0 MG/DL 12/28/2019 12:18 PM T [facility] Comment: THIS ASSAY IS NOT RECOMMENDED FOR PATIENTS UNDERGOING TREATMENT WITH ELTROMBOPAG DUE TO THE POTENTIAL FOR FALSELY ELEVATED RESULTS. ALKALINE PHOSPHATASE S/P/B 110 55 - 142 U/L 12/28/2019 12:18 PM T [facility] AST 16 15 - 37 U/L 12/28/2019 12:18 PM T [facility] ALT 23 14 - 59 U/L 12/28/2019 12:18 PM T [facility] TOTAL PROTEIN S/P/B 6.2(L) 6.4 - 8.2 G/DL 12/28/2019 12:18 PM T [facility] ALBUMIN S/P/B 3.3(L) 3.4 - 5.0 G/DL 12/28/2019 12:18 PM CDT [facility] ANION GAP 5.1 5.0 - 15.0 MMOL/L 12/28/2019 12:18 PM CDT [facility] OSMOLALITY (CALC) 301 MOSM/KG 020 12:18 PM CDT [facility] Comment:REFERENCE RANGE NOT ESTABLISHED EGFR NON-AFR. AMER. 56(L) >89 ML/MIN/1. 73 M2 12/28/2019 12:18 PM CDT [facility] EGFR AFR. AMER. 65(L) >89 ML/MIN/1. 73 M2 12/28/2019 12:18 PM CDT [facility] GFR NOTES GFR REFERENCE S: 12/28/2019 12:18 PM CDT [facility] Comment: THE ESTIMATED GFR IS CALCULATED [...] ml/min/1.73 m2 12/28/2019 11:5 4 AM CDT Hero Shafer MD LABORATORY Zita salcedo Result [facility] [address] [place] [address], * (ABNORMAL) CBC W/DIFF AUTOMATED (12/28/2019 11:54 AM CDT) WBC 4.9 4.5 - 10.8 x10'3/uL 12/28/2019 11:59 AM CDT [facility] RBC 4.86 4.10 - 5.40 x10'6/uL 12/28/2019 11:59 AM CDT [facility] HGB 14.2 12.0 - 16.0 G/DL 12/28/2019 11:59 AM CDT [facility] HCT 46.7 36.0 - 47.0 % 12/28/2019 11:59 AM CDT [facility] MCV 96.1 78.0 - 100.0 FL 12/28/2019 11:59 AM CDT [facility] MCH 29.2 27.0 - 31.0 PG 12/28/2019 11:59 AM CDT [facility] MCHC 30.4(L) 33.0 - 36.0 G/DL 12/28/2019 11:59 AM CDT [facility] RDW 13.1 11.5 - 14.5 % 12/28/2019 11:59 AM CDT [facility] PLT 159 150 - 350 x10'3/uL 12/28/2019 11:59 AM CDT [facility] MPV 11.2(H) 7.4 - 10.4 FL 12/28/2019 11:59 AM CDT [facility] DIFFERENTIAL COMMENT NORMAL REFERENCE RANGE NOT ESTABLISHED FOR THE PROPORTIONAL LEUKOCYTE DIFFERENTIAL. 12/28/2019 11:59 AM CDT [facility] SEG NEUTROPHILS 58.3 % 0 11:59 AM CDT [facility] LYMPHOCYTES 30.0 % 12/28/2019 11:59 AM CDT [facility] MONOCYTES 7.2 % 12/28/2019 11:59 AM CDT [facility] EOSINOPHILS 3.1 % 12/28/2019 11:59 AM CDT [facility] BASOPHILS 1.0 % 12/28/2019 11:59 AM CDT [facility] IMMATURE GRANS % 0.4 % 12/28/19 20 11:59 AM CDT [facility] NRBC 0.0 % 12/28/2019 11:59 AM CDT [facility] ABS. NEUTROPHILS 2.84 1.60 - 8.30 x10'3/uL 12/28/2019 11:59 AM CDT [facility] ABS. LYMPHOCYTES 1.46 0.80 - 4.70 x10'3/uL 12/28/2019 11:59 AM CDT [facility] ABS. MONOCYTES 0.35 0.00 - 1.50 x10'3/uL 12/28/2019 11:59 AM CDT [facility] ABS. EOSINOPHILS 0.15 0.00 - 0.40 x10'3/uL 12/28/2019 11:59 AM CDT [facility] ABS. BASOPHILS 0.05 0.00 - 0.20 x10'3/uL 12/28/2019 11:59 AM CDT [facility] ABS. IMMATURE GRANULOCYTES 0.02 0.00 - 0.03 x10'3/uL 12/28/2019 11:59 AM CDT [facility] ABS. NUCLEATED RBC'S 0.00 0.00 x10'3/uL 12/28/2019 11:59 AM CDT [facility] 12/28/2019 11:5 4 AM CDT us Hero Shafer MD LABORATORY Zita l Result [facility] [place] [address], documented in this encounter Visit Diagnoses Diagnosis Bone lesion Disorder of bone and cartilage, unspecified documented in this encounter Care Teams Superintendent Schools Relationship Specialty Start Date End Date Orlando Cortez MD [address] [place] [phone] PCP - General FAMILY PRACTICE 06/27/18 documented as of this encounter
--- OUTSIDE RECORDS SUMMARY | 2024-07-15 03:07 | XMS_ITS | Encounter Summary ---
Author Organization [facility] Address [facility] [place] [address] [place] [address] Care Team Providers Care Early Breastfeeding Care Specialist Name Role Phone Orlando Cortez MD Primary Care Provider Encounter Details Date Type Department Care Team (Late st Contact Info) Description 01/23/2019 Orders Only [facility] [address] [facility] [place] [address] Akira Maldonado MD [address] [place] [address] Social History Tobacco Use Types Packs/Day Years [...] documented as of this encounter Results * HE4 OVARIAN CANCER MARKER (01/23/2019 10:45 AM CDT) HE4 OVARIAN CA MONITORING 72 pmol/L 01/28/2019 2:35 PM CDT [facility] ENMA [facility]ARSEN Comment: Female Reference Ranges for HE4, Ovarian Cancer Monitoring: Female Premenopausal ??< OR = 70 pmol/L Female Postmenopausal < OR = 140 pmol/L Test performed by [facility] [place] ? [address], ? [place] [address] ? Personal Lines Sales Executive: Vandana Fitzgerald MD,PHD,REGGIE Test Reported by [facility], [employer] [facility], [address] [place] [address] Rhett Dunham M.D., Ph.D., Director of Laboratories , [facility] [id number] 01/23/2019 10:4 5 AM CDT Akira Maldonado MD LABORATORY Final Result Performing Organization Address City/[facility]/ZIP Co de Phone Number [employer] [address] [address], [place] [phone] * IMMUNOASSAY, TUMOR ANTIGEN, CA 125 (01/23/2019 10:45 AM CDT) CA 125 9.0 0.0 - 35.0 U/mL 01/24/2019 1:05 PM CDT [facility] 01/23/2019 10:4 5 AM CDT Akira Maldonado MD LABORATORY Final Result [facility] [address] [place] [address], [place] [phone] [id number] documented in this encounter Visit Diagnoses Diagnosis Ovarian mass- Primary Unspecified noninflammatory disorder of ovary, fallopian tube, and broad ligament documented in this encounter Care Teams Early Breastfeeding Care Specialist Relationship Specialty Start Date End Date Orlando Cortez MD [address] [place] [phone] PCP - General FAMILY PRACTICE 06/27/18 documented as of this encounter
--- OUTSIDE RECORDS SUMMARY | 2024-07-15 03:07 | XMS_ITS | Encounter Summary ---
Author Organization [facility] Address [facility] [place] [address] [place] [address] Care Team Providers Care Computer Systems Information Director Name Role Phone Orlando Cortez MD Primary Care Provider [phone]- [phone] Encounter Details Date Type Department Care Team (Latest Contact Info) Description 11/26/2021 Travel Social History Tobacco Use Types Packs/Day [...] suspected to have Coronavirus/COVID-19? No / Unsure 11/26/2021 1:10 PM CDT documented as of this encounter Plan of Treatment Not on file documented as of this encounter Visit Diagnoses Not on filedocumented in this encounter Care Teams Computer Systems Information Director Relationship Specialty Start Date End Date Orlando Cortez MD [address] [place] [phone] PCP - General FAMILY PRACTICE 06/27/18 documented as of this encounter
--- OUTSIDE RECORDS SUMMARY | 2024-07-15 03:07 | XMS_ITS | Encounter Summary ---
Author Organization [facility] Address [address] [place] [address]. [place] [address] [place] [address] Care Team Providers Care Sports Photographer Name Role Phone Orlando Cortez MD Primary Care Provider [phone]- [phone] Encounter Details Date Type Department Care Team (Late st Contact Info) Description 12/17/2018 Abstract [facility] [address] [place] [address] , Generic MD Olivia Social History Tobacco Use Types Packs/Day Years [...] Diagnoses Not on filedocumented in this encounter Additional Health Concerns Infection Onset Date Last Indicated Resolved Time COVID-19 Rule Out 12/20/2021 12/20/2021 12/20/2021 7:08 PM CDT documented as of this encounter Care Teams Sports Photographer Relationship Specialty Start Date End Date Orlando Cortez MD [address] [place] [phone] PCP - General FAMILY PRACTICE 06/27/18 documented as of this encounter
--- OUTSIDE RECORDS SUMMARY | 2024-07-15 03:07 | XMS_ITS | Encounter Summary ---
Author Organization [facility] Address [facility] [place] [address] [place] [address] Care Team Providers Care Press Operator Assistant Name Role Phone Orlando Cortez MD Primary Care Provider Reason for Visit * Auth/Cert Specialty Diagnoses / Procedures Referred By Contmurali t Referred To Contact Diagnoses H/O TA Procedures COLONOSCOPY,DIAGNOSTIC COLONOSCOPY Referral ID Status Reason Start Date Expiration Date Visits Re quested Visits Authorized [id number] 1 1 Encounter Details Date Type Department Care Team (Late st Contact Info) Description 12/23/2021 9:22 AM CDT Anesthesia Event [facility] [address] [place] [address] [place] [address] Mario Phna MD [facility] [employer] [place] [address] Anesthesia Record Procedure Summary Procedure Name Responsible Anesthesiologist Anesthesia Start Time Anesthesia Stop Time COLONOSCOPY WITH POLYPECTOMY (Colon) Mario Phan MD 12/23/21 0922 12/23/21 0954 Events Date Time Event Comment 12/23/2021 0920 0920 AN Anesthesia Prepped 0922 An Start Patient ID and consent checked and patient reassessed. 09 An Start Data 0922 AN Immediate Reassess The pa tient was reevaluated immediately before sedation or regional anesthesia. 09 Face Mask Applied 09 Anesthesia Ready 0950 an stop data 0954 Post Anesthetic Care Handoff I completed my handoff to the receiving nurse during which we: 1. Identified the patient 2. Identified the responsible provider 3. Reviewed the pertinent medical history 4. Discussed the surgical course 5. Reviewed intra-op anesthesia management and issues during anesthesia 6. Set expectations for post-procedure period 7. Allowed opportunity for questions and acknowledgement of understanding. 0954 An Stop Meds Name Total propofol (DIPRIVAN) 500 mg/50 mL injecti on 297.36 mg lidocaine (XYLOCAINE) 1% injection 4 mL lactated ringers infusion 700 mL * Agents Name Ancillary O2 * Blood No blood administrations on file. Lines, Drains, and Airways Type Details Placement Removal Peripheral IV Placement Date: 12/10 10/31; Placement Time: 826; Placed Outside of This Facility?: No; Size: 20 G; Orientation: Left; Location: Antecubital; Site Prep: Chlorhexidine; Local Anesthetic: None; Inserted By: [employer]; Insertion attempts: 1; Ultrasound-guided Placement?: No; Patient Tolerance: Tolerated well; Removal Date: 12/23/21; Removal Time: 103; Removal Reason: Patient Discharged 12/23/21826 by Krys Parish RN 12/23/21 1033 by Kellen Watkins RN documented in this encounter Social History Tobacco [...] AM CDT documented as of this encounter OR Notes * Anesthesia Postprocedure Evaluation - Mario Phan MD - 12/23/2021 11:54 AM CDT Anesthesia Post-op Note Ernestine Salinas Procedure(s): COLONOSCOPY (N/A Colon) Anesthesia type: MAC Vitals: 12/23/21 1021 BP: (!) 155/90 Vitals: 12/23/21 1021 Pulse: 55 Vitals: 12/23/21 1021 Resp: 16 Vitals: 12/23/21 1021 Temp: 36.1 ??C Vitals: 12/23/21 1021 SpO2: 100% Patient Location: Phase II/Outpatient Level of Consciousness: awake, alert and oriented Pain Management: adequate analgesia Airway Patency: patent Respiratory Status: spontaneous ventilation and acceptable Cardiovascular Status: acceptable, stable and hemodynamically stable Post-Op Nausea: none Postoperative Hydration: euvolemic There were no known complications for this encounter. * Anesthesia Preprocedure Evaluation - Mario Phan MD - 12/17/2021 8:37 AM CDT Anesthesia ROS/MED History Reviewed: Patient summary , Family history anesthesia, Anesthesia history , Medications , Labs Pre-Anesthetic State: alert, awake and responds appropriately Pulmonary neg pulmonary ROS Cardiovascular Exercise tolerance:good (+) hyperlipidemia Neuro/Psych (+) neuromuscular disease, depression, dementia GI/Hepatic/Renal neg GI/hepatic/renal ROS Endo/Other neg endo/other ROS GENERAL COMMENTS Asa- off 1 week Physical Evaluation Airway Mallampati: II TM Distance: >3 FB Neck ROM: normal Dental (lower dentures) Pulmonary Pulmonary exam normal Breath sounds clear to auscultation Cardiovascular Rhythm: regular Rate: normal Cardiovascular exam normal Anesthesia Plan ASA 2 Intravenous Induction Anesthesia type: MAC Plan for Airway: nasal cannula/simple face mask Plan for Post-op Pain Plan: as per surgeon, oral pain medication and IV analgesics Informed Consent Anesthetic plan and risks discussed with patient of whom consent was obtained. . documented in this encounter Plan of Treatment [...] Bag 12/23/2021 8:28 AM CDT 10 mL/hr lidocaine (XYLOCAINE) 1 % injection SOLN Intravenous, PRN, Starting on Wed12/23/21 at 0923, Until Wed12/23/21 at 0954, Anesthesia Intra-Op Given 12/23/2021 9:23 AM CDT 4 mLs propofol (DIPRIVAN) IV bolus Intravenous, Continuous PRN, Starting on Wed12/23/21 at 0923, Until Wed12/23/21 at 0954, Anesthesia Intra-Op Rate/Dose Change 12/23/2021 9:42 AM CDT 100 mcg/kg/min 53.1 mL/hr Rate/Dose Change 12/23/2021 9:40 AM CDT 150 mcg/kg/min 79. 65 mL/hr Rate/Dose Change 12/23/2021 9:38 AM CDT 120 mcg/kg/min 63. 72 mL/hr documented in this encounter Care Teams Press Operator Assistant Relationship Specialty Start Date End Date Orlando Cortez MD [address] [place] [phone] PCP - General FAMILY PRACTICE 06/27/18 documented as of this encounter
--- OUTSIDE RECORDS SUMMARY | 2024-07-15 03:07 | XMS_ITS | Encounter Summary ---
Author Organization [facility] Address [address] [place] [address]. [place] [address] [place] [address] Care Team Providers Care Glass Sander Name Role Phone Orlando Cortez MD Primary Care Provider Encounter Details Date Type Department Care Team (Latest Contact Info) Description 12/20/2021 Travel Social History Tobacco Use Types Packs/Day [...] suspected to have Coronavirus/COVID-19? No / Unsure 12/20/2021 9:24 AM CDT documented as of this encounter Plan of Treatment Not on file documented as of this encounter Visit Diagnoses Not on filedocumented in this encounter Additional Health Concerns Infection Onset Date Last Indicated Resolved Time COVID-19 Rule Out 12/20/2021 12/20/2021 12/20/2021 7:08 PM CDT documented as of this encounter Care Teams Glass Sander Relationship Specialty Start Date End Date Orlando Cortez MD [address] [place] [phone] PCP - General FAMILY PRACTICE 06/27/18 documented as of this encounter
--- OUTSIDE RECORDS SUMMARY | 2024-07-15 03:07 | XMS_ITS | Encounter Summary ---
Author Organization [facility] Address [address] [place] [address]. [place] [address] [place] [address] Care Team Providers Care Computing Architect Name Role Phone Orlando Cortez MD Primary Care Provider [phone] Reason for Visit * Reason Onset Date Comments Medication Request 11/22/2019 Encounter Details Date Type Department Care Team (Late st Contact Info) Description 11/22/2019 Telephone [facility] [address] [address] Joselito Alexander MD [address] [place] [address] Medication Request Social History Tobacco Use Types Packs/Day Years [...] encounter Progress Notes * Marcella Francisco - 11/22/2019 8:55 AM CDTAddended by: MARCELLA FRANCISCO on: 11/22/2019 08:55 AM Modules accepted: Orders * Marcella Francisco - 11/22/2019 8:54 AM CDT Refill sent to pharmacy. * Elder Lopez NeuroAmerican Board of Addiction Medicine (ABAM) Tech - 11/22/2019 7:48 AM CDT Lorena from the pharmacy called for refill of Gabapentin for the patient. . documented in this encounter Plan of Treatment Not on file documented as of this encounter Visit Diagnoses Diagnosis Neuropathy Mononeuritis of unspecified site documented in this encounter Care Teams Computing Architect Relationship Specialty Start Date End Date Orlando Cortez MD [address] [place] [phone] PCP - General FAMILY PRACTICE 06/27/18 documented as of this encounter
--- OUTSIDE RECORDS SUMMARY | 2024-07-15 03:07 | XMS_ITS | Encounter Summary ---
Author Organization [facility] Address [facility] [place] [address] [place] [address] Care Team Providers Care Non Emergency Services Ambulance Driver Name Role Phone Orlando Cortez MD Primary Care Provider [phone]- [phone] Encounter Details Date Type Department Care Team (Latest Contact Info) Description 12/18/2021 Travel Social History Tobacco Use Types Packs/Day [...] suspected to have Coronavirus/COVID-19? No / Unsure 12/18/2021 12:49 PM CDT documented as of this encounter Plan of Treatment Not on file documented as of this encounter Visit Diagnoses Not on filedocumented in this encounter Care Teams Non Emergency Services Ambulance Driver Relationship Specialty Start Date End Date Orlando Cortez MD [address] [place] [phone] PCP - General FAMILY PRACTICE 06/27/18 documented as of this encounter
--- OUTSIDE RECORDS SUMMARY | 2024-07-15 03:07 | XMS_ITS | Encounter Summary ---
Author Organization [facility] Address [address] [place] [address]. [place] [address] [place] [address] Care Team Providers Care Call Center Professional Name Role Phone Orlando Cortez MD Primary Care Provider [phone] Encounter Details Date Type Department Care Team (Late st Contact Info) Description 07/02/2022 10:55 AM WIRELESS WATCHER - 07/02/2022 11:59 PM [facility] Hospital Encounter [facility] [address] [place] [address] Stephan Barreto, [facility] [address] [place] [phone] Discharge Disposition: Home or Self Care (Routine [...] Coronavirus/COVID-19? No / Unsure 07/02/2022 2:46 PM WIRELESS WATCHER documented as of this encounter Medications at [...] tablet Take 10 mg by mouth daily. [place]-3 Fatty Acids (FISH OIL PEARLS) 300 MG [...] Diagnosis Comments XR WRIST RT 2V Routine 07/02/2022 11:16 AM WIRELESS WATCHER Injury of right wrist, initial encounter documented in this encounter Results * XR WRIST RT 2V (07/02/2022 11:16 AM WIRELESS WATCHER) Anatomical Region Laterality Modality Wrist Radiographic Mely ging 07/02/2022 11:1 9 AM WIRELESS WATCHER Impressions 07/02/2022 11:22 AM WIRELESS WATCHER IMPRESSION: No remarkable change in position, alignment or radiographic appearance of fractures distal right radius and ulna since study 06/26/2022. 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 Ordered By: STEPHAN BARRETO Interpreted By: Jaylon Sanchez MD, 07/02/2022 11:19 AM Narrative 07/02/2022 11:22 AM WIRELESS WATCHER 06/30/2020 10:29 AM. HISTORY: Follow-up fracture. EXAM: AP and lateral views of the right wrist. Correlation to study 06/26/2022. FINDINGS: Subacute transverse fracture in the distal metadiaphysis of the radius with the distal fragment displaced at least 7 mm dorsally and with slight impaction at the fracture site. Minimal dorsal angulation of the distal fragment. Nearly nondisplaced fracture in the base of the ulnar styloid. There is early healing at both fracture sites. 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 No new fracture. No gross bone destruction. Procedure Note Jaylon Sanchez MD - 07/02/2022 06/30/2020 10:29 AM. HISTORY: Follow-up fracture. EXAM: AP and lateral views of the right wrist. Correlation to study06/26/2022. FINDINGS: Subacute transverse fracture in the distal metadiaphysis of theradius with the distal fragment displaced at least 7 mm dorsally and withslight impaction at the fracture site. Minimal dorsal angulation of thedistal fragment. Nearly nondisplaced fracture in the base of the ulnarstyloid. There is early healing at both fracture sites. 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 No new fracture. No gross bone destruction. IMPRESSION: No remarkable change in position, alignment or radiographic appearance offractures distal right radius and ulna since study 06/26/2022. Arthriticchanges right wrist and first metacarpal phalangeal joint. Ordered By: STEPHAN BARRETO Interpreted By: Jaylon Sanchez MD, 07/02/2022 11:19 AM us Stephan Barreto JUNIOR MANUFACTURING ENGINEER-BC GENERAL IMAGING Final Resu lt documented in this encounter Visit Diagnoses Diagnosis Injury of right wrist, initial encounter documented in this encounter Care Teams Call Center Professional Relationship Specialty Start Date End Date Orlando Cortez MD [address] [place] [phone] PCP - General FAMILY PRACTICE 06/27/18 documented as of this encounter
--- OUTSIDE RECORDS SUMMARY | 2024-07-15 03:07 | XMS_ITS | Encounter Summary ---
Author Organization [facility] Address [address] [place] [address] [place] [address] Care Team Providers Care Senior Genetic Counselor Name Role Phone Orlando Cortez MD Primary Care Provider [phone]- [phone] Encounter Details Date Type Department Care Team (Latest Contact Info) Description 01/23/2019 9:57 AM CDT - 01/23/2019 11:59 PM CDT Hospital Encounter [facility] [place] [address] Orlando Cortez MD [address] [place] [phone] Discharge Disposition: Home or Self Care (Routine [...] tablet Take 10 mg by mouth daily. [place]-3 Fatty Acids (FISH OIL PEARLS) 300 MG [...] Procedure Name Priority Date/Time Associated Diagnosis Comments HE4 OVARIAN CANCER MARKER Routine 01/23/2019 10:45 AM CDT Ovarian mass IMMUNOASSAY, TUMOR ANTIGEN, CA 125 Routine 01/23/2019 10:45 AM CDT Ovarian mass documented in this encounter Results * HE4 OVARIAN CANCER MARKER (01/23/2019 10:45 AM CDT) HE4 OVARIAN CA MONITORING 72 pmol/L 01/28/2019 2:35 PM CDT [employer] ENMA LARSEN Comment: Female Reference Ranges for HE4, Ovarian Cancer Monitoring: Female Premenopausal ??< OR = 70 pmol/L Female Postmenopausal < OR = 140 pmol/L Test performed by [employer] [facility] ? [address], ? [place] [address] ? Burlap Worker: Vandana Fitzgerald MD,PHD,REGGIE Test Reported by [facility], [employer] [facility], [address] [place], [place] Rhett Dunham M.D., Ph.D., Director of Laboratories , [facility] [id number] 01/23/2019 10:4 5 AM CDT Akira Maldonado MD LABORATORY Final Result Performing Organization Address City/[facility]/ZIP Co de Phone Number [employer] [facility] [address] [place], [place] , [place] [phone] * IMMUNOASSAY, TUMOR ANTIGEN, CA 125 (01/23/2019 10:45 AM CDT) CA 125 9.0 0.0 - 35.0 U/mL 01/24/2019 1:05 PM CDT [facility] 01/23/2019 10:4 5 AM CDT Akira Maldonado MD LABORATORY Final Result [facility] [address] [place] [address], [place] [phone] documented in this encounter Visit Diagnoses Diagnosis Ovarian mass Unspecified noninflammatory disorder of ovary, fallopian tube, and broad ligament documented in this encounter Care Teams Senior Genetic Counselor Relationship Specialty Start Date End Date Orlando Cortez MD [address] [place] [phone] (Samx) PCP - General FAMILY PRACTICE 06/27/18 documented as of this encounter
--- OUTSIDE RECORDS SUMMARY | 2024-07-15 03:07 | XMS_ITS | Encounter Summary ---
Author Organization [facility] Address [address] [place] [address]. [place] [address] [place] [address] Care Team Providers Care Termite Treater Helper Name Role Phone Orlando Cortez MD Primary Care Provider [phone] Encounter Details Date Type Department Care Team (Late st Contact Info) Description 12/20/2021 6:20 AM CDT - 12/20/2021 11:59 PM CDT Hospital Encounter [facility] [address] [place] [address] Cricket Hung MD [address] [place] [phone] Discharge Disposition: Home or Self Care (Routine [...] tablet Take 10 mg by mouth daily. [place]-3 Fatty Acids (FISH OIL PEARLS) 300 MG [...] Procedure Name Priority Date/Time Associated Diagnosis Comments CORONAVIRUS (COVID 19) Routine 12/20/2021 9:28 AM CDT Pre-operative laboratory examination documented in this encounter Results * PRE-SURGICAL/PRE-PROCEDURE CORONAVIRUS (COVID 19) (12/20/2021 9:28 AM CDT) SPEC DESCRIPTION NASAL 12/21/19 9:31 AM CDT [facility] CORONAVIRUS SARS COV 2 PCR (RESP) NEGATIVE NEGATIVE 12/20/2021 7:08 PM CDT [facility] Comment: THE SARS-CoV-2 TEST HAS BEEN AUTHORIZED BY THE FDA UNDER AN EUA FOR USE BY AUTHORIZED LABORATORIES. PERFORMED BY NUCLEIC ACID AMPLIFICATION PCR FIRST TEST UNKNOWN 12/20/2021 9:31 AM CDT [facility] EMPLOYED IN HEALTHCARE NO 12/20/2021 9:31 AM CDT [facility] SYMPTOMATIC DEFINED BY CDC UNKNOWN 12/20/2021 9:31 AM CDT [facility] HOSPITALIZATION STATUS NO 12/20/2021 9:31 AM CDT [facility] PATIENT IN ICU NO 12/20/2021 9:31 AM CDT [facility] RESIDENT OF [facility] CARE NO 12/20/2021 9:31 AM CDT [facility] NASAL STRUCTURE / Unknown 12/20/2021 9:28 AM CDT Cricket Hung MD MICROBIOLOGY - GENERAL ORDERA BLES Final Result [facility] [address] [place] [address], [facility] [address] [place] [address], [place] [phone] documented in this encounter Visit Diagnoses Diagnosis Pre-operative laboratory examination Pre-procedural laboratory examination documented in this encounter Additional Health Concerns Infection Onset Date Last Indicated Resolved Time COVID-19 Rule Out 12/20/2021 12/20/2021 12/20/2021 7:08 PM CDT documented as of this encounter Care Teams Termite Treater Helper Relationship Specialty Start Date End Date Orlando Cortez MD [address] [place] [phone] PCP - General FAMILY PRACTICE 06/27/18 documented as of this encounter
--- OUTSIDE RECORDS SUMMARY | 2024-07-15 03:07 | XMS_ITS | Encounter Summary ---
Author Organization [facility] Address [facility] [place] [address] [place] [address] Care Team Providers Care Retail Planner Name Role Phone Orlando Cortez MD Primary Care Provider +- [phone] Encounter Details Date Type Department Care Team (Latest Contact Info) Description 07/12/2019 1:17 PM POLISHING WHEEL REPAIRER - 07/12/2019 11:59 PM [facility] [address] [facility] [place] [address] Orlando Cortez MD [address] [place] [phone] Discharge Disposition: Home or Self Care (Routine [...] tablet Take 10 mg by mouth daily. [place]-3 Fatty Acids (FISH OIL PEARLS) 300 MG [...] 2 (two) times daily. 180 capsule 1 05/31/2019 11/22/2019 Misc Natural Products (OSTEO BI-FLEX TRIPLE STRENGTH) [...] Name Priority Date/Time Associated Diagnosis Comments XR CERV SPINE 3V Routine 07/12/2019 1:33 PM POLISHING WHEEL REPAIRER Neck pain documented in this encounter Results * XR CERV SPINE 3V (07/12/2019 1:33 PM POLISHING WHEEL REPAIRER) Anatomical Region Laterality Modality Spine Radiographic Mely ging 07/12/2019 1:34 PM POLISHING WHEEL REPAIRER Impressions 07/12/2019 1:36 PM POLISHING WHEEL REPAIRER IMPRESSION: Progressive moderate to severe degenerative changes Interpreted By: Justin Schulte MD, 07/12/2019 1:34 PM Narrative 07/12/2019 1:36 PM POLISHING WHEEL REPAIRER 3 VIEWS OF THE CERVICAL SPINE Clinical History: Neck pain Comparison: April 13, 2016 3 views of the cervical spine demonstrate progressive degenerative changes. There is no evidence of acute fracture or subluxation. Overall, the vertebral body heights are preserved. There is now complete loss of intervertebral disc height noted at the C5-C6 level and the degree of posterior angulation at C4-C5 is exaggerated since the previous exam. Sclerosis within the facets is again noted. The anterior cervical soft tissues are within normal limits. The spinous processes are normally aligned Procedure Note Justin Schulte MD - 07/12/2019 3 VIEWS OF THE CERVICAL SPINE Clinical History: Neck pain Comparison: April 13, 2016 3 views of the cervical spine demonstrate progressive degenerativechanges. There is no evidence of acute fracture or subluxation. Overall, the vertebral body heights are preserved. There is now complete loss of intervertebral disc height noted at the C5-C6 level and the degree of posterior angulation at C4-C5 is exaggerated since the previous exam. Sclerosis within the facets is again noted. The anterior cervical soft tissues are within normal limits. The spinous processes are normally aligned IMPRESSION: Progressive moderate to severe degenerative changes Interpreted By: Justin Schulte MD, 07/12/2019 1:34 PM us Orlando Cortez MD GENERAL IMAGING Final Resul t documented in this encounter Visit Diagnoses Diagnosis Neck pain Cervicalgia documented in this encounter Care Teams Retail Planner Relationship Specialty Start Date End Date Orlando Cortez MD [address] [place] [phone] PCP - General FAMILY PRACTICE 06/27/18 documented as of this encounter
--- OUTSIDE RECORDS SUMMARY | 2024-07-15 03:07 | XMS_ITS | Encounter Summary ---
Author Organization [facility] Address [address] [place] [address]. [place] [address] [place] [address] Care Team Providers Care Automatic Spinning Lathe Setter Name Role Phone Orlando Cortez MD Primary Care Provider [phone] Encounter Details Date Type Department Care Team (Late st Contact Info) Description 12/29/2018 Orders Only [facility] [address] [facility] [place] [address] Irina Romero, RN Social History Tobacco Use Types Packs/Day Years [...] as of this encounter Visit Diagnoses Diagnosis Renal lesion- Primary Unspecified disorder of kidney and ureter documented in this encounter Care Teams Automatic Spinning Lathe Setter Relationship Specialty Start Date End Date Orlando Cortez MD [address] [place] [phone] PCP - General FAMILY PRACTICE 06/27/18 documented as of this encounter
--- OUTSIDE RECORDS SUMMARY | 2024-07-15 03:07 | XMS_ITS | Encounter Summary ---
Author Organization [facility] Address [facility] [place] [place] [address] [place] [address] Care Team Providers Care Property Manager Name Role Phone Orlando Cortez MD Primary Care Provider +- [phone] Encounter Details Date Type Department Care Team (Latest Contact Info) Description 06/26/2022 Travel Social History Tobacco Use Types Packs/Day [...] Coronavirus/COVID-19? No / Unsure 06/26/2022 3:18 PM CLIENT RELATIONS ASSOCIATE documented as of this encounter Plan of Treatment Not on file documented as of this encounter Visit Diagnoses Not on filedocumented in this encounter Care Teams Property Manager Relationship Specialty Start Date End Date Orlando Cortez MD [address] [place] [phone] PCP - General FAMILY PRACTICE 06/27/18 documented as of this encounter
--- OUTSIDE RECORDS SUMMARY | 2024-07-15 03:07 | XMS_ITS | Encounter Summary ---
Author Organization [facility] Address [address] [place] [address]. [place] [address] [place] [address] Care Team Providers Care Religious Education Teacher Name Role Phone Orlando Cortez MD Primary Care Provider Encounter Details Date Type Department Care Team (Late st Contact Info) Description 12/20/2021 Orders Only [facility] [address] [place] [address] Cricket Hung MD [address] [place] [address] Social History Tobacco Use Types Packs/Day Years [...] documented as of this encounter Results * PRE-SURGICAL/PRE-PROCEDURE CORONAVIRUS (COVID 19) (12/20/2021 9:28 AM CDT) SPEC DESCRIPTION NASAL 12/21/19 9:31 AM CDT [facility] CORONAVIRUS SARS COV 2 PCR (RESP) NEGATIVE NEGATIVE 12/20/2021 7:08 PM CDT [facility] Comment: THE SARS-CoV-2 TEST HAS BEEN AUTHORIZED BY THE FDA UNDER AN EUA FOR USE BY AUTHORIZED LABORATORIES. PERFORMED BY NUCLEIC ACID AMPLIFICATION PCR FIRST TEST UNKNOWN 12/20/2021 9:31 AM CDT [facility] EMPLOYED IN HEALTHCARE NO 12/20/2021 9:31 AM CDT [facility] SYMPTOMATIC DEFINED BY CDC UNKNOWN 12/20/2021 9:31 AM CDT [facility] HOSPITALIZATION STATUS NO 12/20/2021 9:31 AM CDT [facility] PATIENT IN ICU NO 12/20/2021 9:31 AM CDT [facility] RESIDENT OF [facility] NO 12/20/2021 9:31 AM CDT [facility] NASAL STRUCTURE / Unknown 12/20/2021 9:28 AM CDT us Cricket Hung MD MICROBIOLOGY - GENERAL ORDERA BLES Final Result [facility] [address] [place] [address], [place] [phone] [facility] [address] [place] [address], [place] [phone] documented in this encounter Visit Diagnoses Diagnosis Pre-operative laboratory examination- Primary Pre-procedural laboratory examination documented in this encounter Additional Health Concerns Infection Onset Date Last Indicated Resolved Time COVID-19 Rule Out 12/20/2021 12/20/2021 12/20/2021 7:08 PM CDT documented as of this encounter Care Teams Religious Education Teacher Relationship Specialty Start Date End Date Orlando Cortez MD [address] [place] [address] PCP - General FAMILY PRACTICE 06/27/18 documented as of this encounter
--- OUTSIDE RECORDS SUMMARY | 2024-07-15 03:07 | XMS_ITS | Encounter Summary ---
Author Organization [facility] Address [address] [facility] [place] [address] [place] [address] Care Team Providers Care Automation Software Engineer Name Role Phone Orlando Cortez MD Primary Care Provider Reason for Visit * Auth/Cert (Routine) Specialty Diagnoses / Procedures Referred By Contac t Referred To Contact Diagnoses Other closed fracture of distal end of right radius, initial encounter S52.591A Procedures Open reduction internal fixation RIGHT wrist; ; rosie notified, c-arm, told to arrive at 0615 Maximo Lara MD [address] [place] [address] Phone: tel: fax: Referral ID Status Reason Start Date Expiration Date Visits Re quested Visits Authorized [id number] 1 1 Encounter Details Date Type Department Care Team (Latest Contact Info) Description 07/03/2022 6:15 AM GROUNDWATER MONITORING TECHNICIAN - 07/03/2022 9:32 AM [facility] [place] [address] Maximo Lara MD [address] [place] [address] Discharge Disposition: Home or Self Care (Routine [...] Coronavirus/COVID-19? No / Unsure 07/02/2022 2:46 PM GROUNDWATER MONITORING TECHNICIAN documented as of this encounter Last Filed Vital Signs Vital Sign Reading Time Taken Comments Blood Pressure 144/94 07/03/2022 9:28 AM GROUNDWATER MONITORING TECHNICIAN Pulse 61 07/03/2022 9:28 AM GROUNDWATER MONITORING TECHNICIAN Temperature 35.7 ??C (96.3 ??F) 07/03/2022 9:28 AM CS T Respiratory Rate 16 07/03/2022 9:28 AM GROUNDWATER MONITORING TECHNICIAN Oxygen Saturation 95% 07/03/2022 9:28 AM GROUNDWATER MONITORING TECHNICIAN Inhaled Oxygen Concentration - - Weight 84.4 kg (186 lb) 07/02/2022 2:43 PM GROUNDWATER MONITORING TECHNICIAN Height 177.8 cm (5' 10) 07/02/2022 2:43 PM GROUNDWATER MONITORING TECHNICIAN Body Mass Index 26.69 07/02/2022 2:43 PM GROUNDWATER MONITORING TECHNICIAN documented in this encounter Discharge Instructions * Attachments The following attachments cannot be sent through Care Everywhere. * Moderate Sedation in Adults Discharge Instructions (Azerbaijani) * Nerve Blocks (Azerbaijani) * Open Reduction and Internal Fixation Surgery Discharge Instructions (Azerbaijani) documented in this encounter Medications at Time [...] tablet Take 10 mg by mouth daily. [place]-3 Fatty Acids (FISH OIL PEARLS) 300 MG Cap Take 1,000 Units by mouth daily. 11/17/2017 raloxifene 60 MG tablet Take 1 tablet by mouth daily. 01/06/2018 traMADol 50 MG tabletIndications :Chronic Pain Take 50 mg by mouth 4 (four) times daily. Indications: Chronic Pain 2 01/18/2018 vitamin D3, cholecalciferol, 1000 UNIT Tab tablet 2,000 Units daily. 04/07/2021 documented as of this encounter OR Notes * Op Note - Maximo Lara MD - 07/03/2022 8:49 AM CST Yoandy Salinas 1940 [id number] 07/03/2022 Pre op diagnosis: Right distal radius fracture Post op diagnosis: Same Procedure: Open reduction internal fixation right distal radius fracture using a [place] volar locking plate Surgeon: MAXIMO LARA MD Anesthesia: Regional block with IV sedation Procedure: After regional block was performed in the holding area the patient was taken to the operating room where positioning was in supine fashion and IV sedation administered. Antibiotics were given intravenously and a tourniquet applied to the proximal arm. The upper extremity was prepped and draped in the usual sterile fashion and an Esmarch wrap was used to exsanguinate the upper extremityand the tourniquet inflated to 250 mmHg. A skin marker was used to radha the incision on the volar wrist and a 15 blade used to incise the skin. The FCR was released from its sheath and retracted in aradial direction. The volar fascia was split and the pronator muscle belly identified. The fracturewas visualized also. A 15 blade was used to incise the radial border of the pronator and an elevator used to elevate soft tissues from the volar aspect of the radius. The fracture was then reduced and a [place] locking plate positioned under fluoroscopic visualization. A screw was inserted through the sliding hole to stabilize the plate and positioning again confirmed under fluoroscopic visualization. Fragments were reduced as much as possible and traction applied while the distal locking holeswere drilled and locking screws inserted. Then confirmed appropriate positioning of the screws withno joint penetration. Remaining screw holes were filled with locking and nonlocking screws to finish stabilization of the injury area permanent C-arm views were obtained demonstrating good plate positioning as well as fracture reduction. The pronator muscle was pulled back across the plate suturingit to the cuff of tissue on the radial side as much as possible. The tourniquet was then released at 22 minutes and the radial artery was noted to be uninjured. Electrocautery was used to obtain hemostasis. The wounds were copiously irrigated and 2-0 Vicryl used to close subcutaneous tissue while 4-0 nylon was used to close the skin using a running stitch. Sterile dressings were applied and overwrapped with web roll. The drapes then withdrawn and a well-padded sugar tong splint applied. This was overwrapped with an Jasiel wrap. Sedation was discontinued the patient was transferred to the stretcher and then to the PACU in good condition. Estimated blood loss was less than 50 cc and sponge and needle counts were correct x2 following the procedure NDWATER MONITORING TECHNICIAN * Brief Op Note - Maximo Lara MD - 07/03/2022 8:48 AM CST [facility] Brief Op [facility] reduction internal fixation RIGHT wrist rosie notified, c-arm, told to arrive at 0615 Procedure Note Yoandy Salinas 07/03/2022 0730 Procedure(s) (LRB): Open reduction internal fixation RIGHT wrist rosie notified, c-arm, told to arrive at 0615 (Right) Surgeon(s): Maximo Lara MD Security Rep: Lyric Writer: Kanika Raza RN Anesthesia: Monitor Anesthesia Care Pre-Op Diagnosis: S52.591A Post-Op Diagnosis: Same Findings: Estimated Blood Loss: less than 50 mL Specimens: None MAXIMO LARA MD Date: 07/03/2022 Time: 8:48 AM NDWATER MONITORING TECHNICIAN documented in this encounter Plan of Treatment Not on file documented as of this encounter Procedures Procedure Name Priority Date/Time Associated Diagnosis Comments XR FLUOROSCOPY UP TO 1HR Routine 07/03/2022 8:50 AM GROUNDWATER MONITORING TECHNICIAN Other closed fracture of distal end of right radius, initial encounter OPEN REDUCTION INTERNAL FIXATION WRIST 07/03/2022 7:25 AM GROUNDWATER MONITORING TECHNICIAN Other closed fracture of distal end of right radius, initial encounter COMPREHENSIVE METABOLIC PANEL Routine 07/03/2022 6:42 AM GROUNDWATER MONITORING TECHNICIAN CBC W/DIFF AUTOMATED Routine 07/03/2022 6:42 AM GROUNDWATER MONITORING TECHNICIAN ECG 12-LEAD Routine 07/03/2022 6:39 AM GROUNDWATER MONITORING TECHNICIAN documented in this encounter Results * XR FLUOROSCOPY UP TO 1HR (07/03/2022 8:50 AM GROUNDWATER MONITORING TECHNICIAN) Anatomical Region Laterality Modality Undefined Radiographic Mely ging 07/03/2022 8:54 AM GROUNDWATER MONITORING TECHNICIAN Impressions 07/03/2022 8:56 AM GROUNDWATER MONITORING TECHNICIAN impression: 2 spot images of the right wrist obtained for operative control demonstrate internal fixation of a distal radius fracture without apparent hardware complication. Referred By: ?? Interpreted By: Ricci Amador MD, 07/03/2022 8:54 AM Narrative 07/03/2022 8:56 AM GROUNDWATER MONITORING TECHNICIAN Examination: XR FLUOROSCOPY UP TO 1HR Exam time: 07/03/2022 8:50 AM Indication: ORIF right wrist Fluoroscopy time: 36 seconds Number of images: 2 Findings and Procedure Note Ricci Amador MD - 07/03/2022 Examination: XR FLUOROSCOPY UP TO 1HR Exam time: 07/03/2022 8:50 AM Indication: ORIF right wrist Fluoroscopy time: 36 seconds Number of images: 2 Findings and impression: 2 spot images of the right wrist obtained for operativecontrol demonstrate internal fixation of a distal radius fracture withoutapparent hardware complication. Referred By: Interpreted By: Ricci Amador MD, 07/03/2022 8:54 AM us Maximo Lara MD FLUOROSCOPY Final Result * (ABNORMAL) COMPREHENSIVE METABOLIC PANEL (07/03/2022 6:42 AM GROUNDWATER MONITORING TECHNICIAN) SODIUM S/P/B 143 136 - 145 MMOL/L 07/03/2022 7:07 AM [facility] POTASSIUM S/P/B 3.3(L) 3.5 - 5.1 MMOL/L 07/03/2022 7:07 AM [facility] CHLORIDE S/P/B 103 98 - 107 MMOL/L 07/03/2022 7:07 AM [facility] CO2 32.0 21.0 - 32.0 MMOL/L 07/03/2022 7:07 AM [facility] GLUCOSE 132(H) 70 - 99 MG/DL 07/03/2022 7:07 AM [facility] Comment: FASTING GLUCOSE 100 TO 125 MG/DL IS CONSISTENT WITH IMPAIRED FASTING GLUCOSE. FASTING GLUCOSE >125 MG/DL IS CONSISTENT WITH DIABETES. RANDOM GLUCOSE >200 MG/DL WITH HYPERGLYCEMIC SYMPTOMS IS CONSISTENT WITH DIABETES. PER ADA GUIDELINES BUN 19 6 - 24 MG/DL 07/03/2022 7:07 AM [facility] CREATININE S/P/B 1.17(H) 0.55 - 1.02 MG/DL 07/03/2022 7:07 AM [facility] CALCIUM S/P/B 8.6 8.4 - 10.5 MG/DL 07/03/2022 7:07 AM [facility] BILIRUBIN TOTAL S/P/B 1.0 0.2 - 1.0 MG/DL 07/03/2022 7:07 AM [facility] Comment: THIS ASSAY IS NOT RECOMMENDED FOR PATIENTS UNDERGOING TREATMENT WITH ELTROMBOPAG DUE TO THE POTENTIAL FOR FALSELY ELEVATED RESULTS. ALKALINE PHOSPHATASE S/P/B 101 55 - 142 U/L 07/03/2022 7:07 AM [facility] AST 16 15 - 37 U/L 07/03/2022 7:07 AM [facility] ALT 33 14 - 59 U/L 07/03/2022 7:07 AM [facility] TOTAL PROTEIN S/P/B 6.0(L) 6.4 - 8.2 G/DL 07/03/2022 7:07 AM [facility] ALBUMIN S/P/B 2.8(L) 3.4 - 5.0 G/DL 07/03/2022 7:07 AM [facility] ANION GAP 8.0 5.0 - 15.0 MMOL/L 07/03/2022 7:07 AM [facility] OSMOLALITY (CALC) 300 MOSM/KG 022 7:07 AM [facility] Comment:REFERENCE RANGE NOT ESTABLISHED GFR ESTIMATE 47(L) >89 ML/MIN/1. 73 M2 07/03/2022 7:07 AM [facility] GFR NOTES GFR REFERENCE S: 07/03/2022 7:07 AM [facility] Comment: THE ESTIMATED GFR IS CALCULATED USING THE 2020 CKD-EPI EQUATION. THE FOLLOWING CATEGORIES FOR GRADING RENAL FUNCTION ARE RECOMMENDED BY THE INTERNATIONAL SOCIETY OF NEPHROLOGY (KDIGO 2012 CLINICAL PRACTICE GUIDELINE). G1,NORMAL OR HIGH: >89 ml/min/1.73 m2 G2,MILDLY DECREASED: 60-89 ml/min/1.73 m2 G3A,MILDLY TO MODERATELY DECREASED: 45-59 ml/min/1.73 m2 G3B,MODERATELY TO SEVERELY DECREASED: 30-44 ml/min/1.73 m2 G4,SEVERELY DECREASED: 15-29 ml/min/1.73 m2 G5,KIDNEY FAILURE: <15 ml/min/1.73 m2 07/03/2022 6:42 AM GROUNDWATER MONITORING TECHNICIAN us Marco Stewart [facility] Final Resu lt [facility] [address] [id number], * (ABNORMAL) CBC W/DIFF AUTOMATED (07/03/2022 6:42 AM GROUNDWATER MONITORING TECHNICIAN) WBC 9.73 4.00 - 10.80 x10'3/uL 07/03/2022 6:50 AM GROUNDWATER MONITORING TECHNICIAN [facility] RBC 4.28 4.10 - 5.40 x10'6/uL 07/03/2022 6:50 AM GROUNDWATER MONITORING TECHNICIAN [facility] HGB 12.9 12.0 - 16.0 G/DL 07/03/2022 6:50 AM GROUNDWATER MONITORING TECHNICIAN [facility] HCT 40.5 36.0 - 47.0 % 07/03/2022 6:50 AM GROUNDWATER MONITORING TECHNICIAN [facility] MCV 94.6 78.0 - 100.0 FL 07/03/2022 6:50 AM GROUNDWATER MONITORING TECHNICIAN [facility] MCH 30.1 27.0 - 31.0 PG 07/03/2022 6:50 AM GROUNDWATER MONITORING TECHNICIAN [facility] MCHC 31.9(L) 33.0 - 36.0 G/DL 07/03/2022 6:50 AM GROUNDWATER MONITORING TECHNICIAN [facility] RDW 13.2 11.5 - 14.5 % 07/03/2022 6:50 AM GROUNDWATER MONITORING TECHNICIAN [facility] PLT 281 150 - 350 x10'3/uL 07/03/2022 6:50 AM GROUNDWATER MONITORING TECHNICIAN [facility] MPV 9.4 7.4 - 10.4 FL 07/03/2022 6:50 AM GROUNDWATER MONITORING TECHNICIAN [facility] CBC COMMENT NORMAL REFERENCE RANGE NOT ESTABLISHED FOR THE PROPORTIONAL LEUKOCYTE DIFFERENTIAL. 07/03/2022 6:50 AM GROUNDWATER MONITORING TECHNICIAN [facility] NEUTROPHILS % 72.7 % 07/03/2022 6:50 AM GROUNDWATER MONITORING TECHNICIAN [facility] LYMPHOCYTES % 15.0 % 07/03/2022 6:50 AM GROUNDWATER MONITORING TECHNICIAN [facility] MONOCYTES % 8.6 % 07/03/2022 6:50 AM GROUNDWATER MONITORING TECHNICIAN [facility] EOSINOPHILS % 2.2 % 07/03/2022 6:50 AM GROUNDWATER MONITORING TECHNICIAN [facility] BASOPHILS % 0.4 % 07/03/2022 6:50 AM GROUNDWATER MONITORING TECHNICIAN [facility] IMMATURE GRANS % 1.1 % 07/03/20 6:50 AM GROUNDWATER MONITORING TECHNICIAN [facility] NRBC 0.0 % 07/03/2022 6:50 AM GROUNDWATER MONITORING TECHNICIAN [facility] ABS. NEUTROPHILS 7.07 1.60 - 8.30 x10'3/uL 07/03/2022 6:50 AM GROUNDWATER MONITORING TECHNICIAN [facility] ABS. LYMPHOCYTES 1.46 0.80 - 4.70 x10'3/uL 07/03/2022 6:50 AM GROUNDWATER MONITORING TECHNICIAN [facility] ABS. MONOCYTES 0.84 0.00 - 1.50 x10'3/uL 07/03/2022 6:50 AM GROUNDWATER MONITORING TECHNICIAN [facility] ABS. EOSINOPHILS 0.21 0.00 - 0.40 x10'3/uL 07/03/2022 6:50 AM GROUNDWATER MONITORING TECHNICIAN [facility] ABS. BASOPHILS 0.04 0.00 - 0.20 x10'3/uL 07/03/2022 6:50 AM GROUNDWATER MONITORING TECHNICIAN [facility] ABS. IMMATURE GRANULOCYTES 0.11(H) 0.00 - 0.03 x10'3/uL 07/03/2022 6:50 AM GROUNDWATER MONITORING TECHNICIAN [facility] ABS. NUCLEATED RBC'S 0.00 0.00 x10'3/uL 07/03/2022 6:50 AM GROUNDWATER MONITORING TECHNICIAN [facility] 07/03/2022 6:42 AM GROUNDWATER MONITORING TECHNICIAN us Marco Stewart [facility] Final Resu lt [facility] [address] [place] [address], * ECG 12 lead (07/03/2022 6:39 AM GROUNDWATER MONITORING TECHNICIAN) 07/03/2022 6:39 AM GROUNDWATER MONITORING TECHNICIAN Narrative [facility] - 07/03/2022 4:19 PM GROUNDWATER MONITORING TECHNICIAN ? [facility] ?[address] [place], [place] ??[address] ? Test Date: ?2022-07-03 Pat Name: ? YOANDY SALINAS ? Department: ?? 3 ? Room: ? ORPOOL Gender: ? Female ? Water Service Supervisor: ?? : ?1940 ? Requested By: MARCO STEWART Order Number: [id number] ? Reading MD: ?? Jameson Mayer ? Measurements Intervals ?[place] ? Rate: ? 80 ? P: ?104 [place]: ? 138 ?QRS: ?39 QRSD: ? 86 ? T: ?91 QT: ? 425 ? QTc: ?493 ? Interpretive Statements SINUS RHYTHM WITH OCCASIONAL VENTRICULAR PREMATURE COMPLEXES MINIMAL ST DEPRESSION NDWATER MONITORING TECHNICIAN Procedure Note Jameson Mayer MD - 07/03/[address] [place] [address] Test Date: 2022-07-03 Pat Name: YOANDY REECEORMACK Department: 3 Room: [facility] Gender: Female Water Service Supervisor: : 1940 Requested By: MARCO STEWART Order Number: [id number] Reading MD: Jameson Mayer Measurements Intervals [place] Rate: 80 P: 104 [place]: 138 QRS: 39 QRSD: 86 T: 91 QT: 425 QTc: 493 Interpretive Statements SINUS RHYTHM WITH OCCASIONAL VENTRICULAR PREMATURE COMPLEXES MINIMAL ST DEPRESSION NDWATER MONITORING TECHNICIAN us Marco Stewart GENERAL DISTILLERY WORKER ECG ORDERABLES Final Resu lt [facility] documented in this encounter Visit Diagnoses Diagnosis Other closed fracture of distal end of right radius, initial encounter- Primary documented in this encounter Admitting Diagnoses Diagnosis Other closed fracture of distal end of right radius, initial encounter documented in this encounter Administered Medications Inactive Administered Medications - up to 3 most recent administrations Medication Order MAR Action Action Date Dose Rate Site acetaminophen (TYLENOL) 500 MG tablet 1 dose, Starting on Wed07/03/22 at 0622, Until Wed07/03/22 at 0646, Created by cabinet override acetaminophen (TYLENOL) tablet 1,000 mg 1,000 mg, Oral, Once, 1 dose, On Wed07/03/22 at 0645, Maximum dose of acetaminophen is 4000 mg from all sources in 24 hours., Pre-Op Given 07/03/2022 6:46 AM GROUNDWATER MONITORING TECHNICIAN 1,000 mg chlorhexidine (PERIDEX) 0.12 % solution 15 mL 15 mL, Mouth/Throat, PRN, Prior to surgery, 1 dose, Starting on Wed07/03/22 at 0620, Until Wed07/03/22 at 0645, Patient to perform oral care first. Swish/Gargle in mouth for 30 seconds, and then discard, prior to going to surgery/ If ventilated use saturated swab to clean oral cavity., Pre-Op Given 07/03/2022 6:45 AM GROUNDWATER MONITORING TECHNICIAN 15 mLs lactated ringers infusion at 10 mL/hr, Intravenous, Continuous, Starting on Wed07/03/22 at 0645, Until Wed07/03/22 at 1218, Infuse at TKO rate, Pre-Op Restarted 07/03/2022 8:13 AM GROUNDWATER MONITORING TECHNICIAN Continued by Anesthesia 07/03/2022 7:35 AM GROUNDWATER MONITORING TECHNICIAN 10 mL/hr New Bag 07/03/2022 6:45 AM GROUNDWATER MONITORING TECHNICIAN 10 mL/hr documented in this encounter Active and Recently Administered Medications Times are shown in GROUNDWATER MONITORING TECHNICIAN. Scheduled Medication Order 07/01/2022 07/02/2022 07/03/2022 acetaminophen (TYLENOL) tablet 1,000 mg (COMPLETED) 1,000 mg, Oral, Once, 1 dose, On Wed07/03/22 at 0645, Maximum dose of acetaminophen is 4000 mg from all sources in 24 hours., Pre-Op 0646 (Given - Provid er: Meet Batista RN) ceFAZolin (ANCEF) 2 g in NS 100 mL IVPB (COMPLETED) 2 g, Intravenous, at 200 mL/hr, yard caller, 1 dose, On Wed07/03/22 at 0645, Give 2 gram dose for patients less than 120 kg. Give within 60 minutes of surgical incision., Pre-Op 0735 (Given - Provid er: Jayla Alberts CRNA)0805 (Infusion Stop Time - Provider: Jayla Alberts CRNA) Continuous Medication Order 07/01/2022 07/02/2022 07/03/2022 lactated ringers infusion at 10 mL/hr, Intravenous, Continuous, Starting on Wed07/03/22 at 0645, Until Wed07/03/22 at 1218, Infuse at TKO rate, Pre-Op 0645 (New Bag - Prov ider: Meet Batista RN)0735 (Continued by Anesthesia - Provider: Jayla Alberts CRNA)0812 (Paused - Provider: Jayla Alberts CRNA - Comment: Switch to gravity)0813 (Restarted - Provider: Jayla Alberts CRNA)0919 (Infusion Stop Time - Provider: Lona Boyer RN) PRN Medication Order 07/01/2022 07/02/2022 07/03/2022 chlorhexidine (PERIDEX) 0.12 % solution 15 mL (COMPLETED) 15 mL, Mouth/Throat, PRN, Prior to surgery, 1 dose, Starting on Wed07/03/22 at 0620, Until Wed07/03/22 at 0645, Patient to perform oral care first. Swish/Gargle in mouth for 30 seconds, and then discard, prior to going to surgery/ If ventilated use saturated swab to clean oral cavity., Pre-Op 0645 (Given - Provid er: Meet Batista RN) sodium chloride 0.9 % 1,000 mL with gentamicin 160 mg irrigation (CANCELED) As needed, Starting on Wed07/03/22 at 0759, Until Wed07/03/22 at 0842, Intra-Op 0759 (Given - Provid er: Maximo Lara MD) documented in this encounter Care Teams Automation Software Engineer Relationship Specialty Start Date End Date Orlando Cortez MD [address] [place] [phone] PCP - General FAMILY PRACTICE 06/27/18 documented as of this encounter
--- OUTSIDE RECORDS SUMMARY | 2024-07-15 03:07 | XMS_ITS | Encounter Summary ---
Author Organization [facility] Address [facility] [place] [address] [place] [address] Care Team Providers Care Fire Investigator Name Role Phone Orlando Cortez MD Primary Care Provider [phone] Reason for Visit * Reason Onset Date Comments Medication Request 10/28/2018 Encounter Details Date Type Department Care Team (Late st Contact Info) Description 10/28/2018 Telephone [facility] [address] [place] [address] Joselito Alexander MD [address] [place] [address] Medication Request Social History Tobacco [...] encounter Progress Notes * Marcella Francisco - 10/31/2018 10:[address] Alexander prescribed Gabapentin 300mg bid. This was sent to the pharmacy. Left message on vm informing of this and also instructing to start with 1 capsule at bedtime for at least 1 week then increasing to bid and to call with any additional questions or concerns. Left call back phone number. * Jossy Huerta - 10/28/2018 3:58 PM CDT Pt changed her mind and wants to try some medicine. Lm for pt letting her know we would ask Dr. Alexander and we would call her back next week. documented in this encounter Plan of Treatment Not on file documented as of this encounter Visit Diagnoses Diagnosis Neuropathy- Primary Mononeuritis of unspecified site documented in this encounter Care Teams Fire Investigator Relationship Specialty Start Date End Date Orlando Cortez MD [address] [place] [phone] PCP - General FAMILY PRACTICE 06/27/18 documented as of this encounter
--- OUTSIDE RECORDS SUMMARY | 2024-07-15 03:07 | XMS_ITS | Encounter Summary ---
Author Organization [facility] Address [facility]6 [facility] [place] [address] [place] [address] Care Team Providers Care Assistant Women'S Rowing Coach Name Role Phone Orlando Cortez MD Primary Care Provider [phone] Encounter Details Date Type Department Care Team (Latest Contact Info) Description 12/28/2019 Travel Social History Tobacco Use Types Packs/Day [...] on filedocumented in this encounter Care Teams Assistant Women'S Rowing Coach Relationship Specialty Start Date End Date Orlando Cortez MD [address] [place] [phone] PCP - General FAMILY PRACTICE 06/27/18 documented as of this encounter
--- OUTSIDE RECORDS SUMMARY | 2024-07-15 03:07 | XMS_ITS | Encounter Summary ---
Author Organization [facility] Address [facility]. [place], [place] [address] [place] [address] Care Team Providers Care Nurse Leader Name Role Phone Orlando Cortez MD Primary Care Provider Reason for Referral * Imaging (Routine) - Closed Specialty Diagnoses / Procedures Referred By Contac t Referred To Contact RADIOLOGY Diagnoses Degenerative joint disease Procedures MRI CERV SPINE WO CON Marc Gasca PA [address] [place] [phone] Phone: tel: fax: Referral ID Status Reason Start Date Expiration Date Visits Re quested Visits Authorized [id number] Closed 07/14/2019 08/14/2020 1 1 NIZATIONAL DEVELOPMENT CONSULTANT Reason for Visit * Imaging (Routine) - Closed Specialty Diagnoses / Procedures Referred By Contac t Referred To Contact RADIOLOGY Diagnoses Degenerative joint disease Procedures MRI CERV SPINE WO CON Marc Gasca PA [address] [place] [address] Phone: tel: fax: Referral ID Status Reason Start Date Expiration Date Visits Re quested Visits Authorized [id number] Closed 07/14/2019 08/14/2020 1 1 Encounter Details Date Type Department Care Team (Latest Contact Info) Description 07/20/2019 2:52 PM ORGANIZATIONAL DEVELOPMENT CONSULTANT - 07/20/2019 11:59 PM [facility] Hospital Encounter [facility] [address] [address] Marc Gasca, BEL [address] [place] [address] Discharge Disposition: Home or Self Care (Routine [...] tablet Take 10 mg by mouth daily. 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 2. No acute cervical spine abnormality is demonstrated. Interpreted By: Gilbert Martínez MD, 07/24/2019 9:55 AM Narrative 07/24/2019 10:16 AM ORGANIZATIONAL DEVELOPMENT CONSULTANT Examination: MRI CERV SPINE WO CON Exam time: 07/20/2019 4:05 PM Clinical history: Exacerbation of chronic neck pain Comparison: 2017 Technique: Sagittal T1, T2 FSE and STIR images of the cervical spine. Axial T2 FSE and T2 gradient echo images. No intravenous contrast. Findings: There is a normal craniovertebral junction. Mild abnormal cervical kyphosis unchanged. Previous fusion at C5-6. Cervical vertebral body heights are well-maintained. No significant marrow replacing mass lesions are noted in the cervical spine. No prevertebral soft tissue swelling. No significant posterior soft tissue edema to suggest ligamentous injury. Cervical spinal cord is normal in appearance. C2-3 disc level demonstrates mild bilateral facet degenerative change with minimal narrowing of the neural foramina. No significant central stenosis. C3-4 demonstrates chronic degenerative disc disease with diffuse disc bulge, bilateral uncovertebral spurring and left hypertrophic facet degenerative change. These findings are resulting in moderate central stenosis and narrowing of the left neural foramen. C4-5 demonstrates chronic degenerative disc disease with diffuse disc bulge, bilateral uncovertebral spurring and left-sided facet degenerative change causing moderate central stenosis and narrowing of the neural foramina bilaterally. Previous fusion at C5-6. There is endplate osteophyte formation and uncovertebral spurring bilaterally right greater than left. There is moderate central stenosis and narrowing of the neural foramina right greater than left. C6-7 demonstrates chronic degenerative disc disease with diffuse disc bulge and bilateral uncovertebral spurring causing mild to moderate central stenosis and narrowing of both neuroforamina. C7-T1 demonstrates minimal disc bulge. No significant paraspinous soft tissue abnormality is noted in the cervical region.. Procedure Note Gilbert Martínez MD - 07/24/2019 Examination: MRI CERV SPINE WO CON Exam time: 07/20/2019 4:05 PM Clinical history: Exacerbation of chronic neck pain Comparison: 2017 Technique: Sagittal T1, T2 FSE and STIR images of the cervical spine.Axial T2 FSE and T2 gradient echo images. No intravenous contrast. Findings: There is a normal craniovertebral junction. Mild abnormal cervicalkyphosis unchanged. Previous fusion at C5-6. Cervical vertebral body heights are well-maintained. No significant marrow replacing mass lesions are notedin the cervical spine. No prevertebral soft tissue swelling. No significant posterior soft tissue edema to suggest ligamentous injury. Cervical spinal cord is normal in appearance. C2-3 disc level demonstrates mild bilateral facet degenerative changewith minimal narrowing of the neural foramina. No significant centralstenosis. C3-4 demonstrates chronic degenerative disc disease with diffuse disc bulge, bilateral uncovertebral spurring and left hypertrophic facet degenerative change. These findings are resulting in moderate central stenosis and narrowing of the left neural foramen. C4-5 demonstrates chronic degenerative disc disease with diffuse disc bulge, bilateral uncovertebral spurring and left-sided facetdegenerative change causing moderate central stenosis and narrowing of the neural foramina bilaterally. Previous fusion at C5-6. There is endplate osteophyte formation and uncovertebral spurring bilaterally right greater than left. There is moderate central stenosis and narrowing of the neural foramina right greater than left. C6-7 demonstrates chronic degenerative disc disease with diffuse discbulge and bilateral uncovertebral spurring causing mild to moderate central stenosis and narrowing of both neuroforamina. C7-T1 demonstrates minimal disc bulge. No significant paraspinous soft tissue abnormality is noted in thecervical region.. IMPRESSION: 1) Mild abnormal cervical kyphosis with advanced chronic multilevel cervical spine degenerative disc disease/spondylosis from C3 through C7 similar to previous study. 2. No acute cervical spine abnormality is demonstrated. Interpreted By: Gilbert Martínez MD, 07/24/2019 9:55 AM [facility] MRI Final Result documented in this encounter Visit Diagnoses Diagnosis Degenerative joint disease Osteoarthrosis, unspecified whether generalized or localized, unspecified site documented in this encounter Care Teams Nurse Leader Relationship Specialty Start Date End Date Orlando Cortez MD [address] [place] [phone] PCP - General FAMILY PRACTICE 06/27/18 documented as of this encounter
--- OUTSIDE RECORDS SUMMARY | 2024-07-15 03:07 | XMS_ITS | Encounter Summary ---
Author Organization [facility] Address [facility]6 [facility] [place] [address] [place] [address] Care Team Providers Care Hospice Educator Name Role Phone Orlando Cortez MD Primary Care Provider [phone] Encounter Details Date Type Department Care Team (Latest Contact Info) Description 10/01/2021 Travel Social History Tobacco Use Types Packs/Day [...] suspected to have Coronavirus/COVID-19? No / Unsure 10/01/2021 1:16 PM CDT documented as of this encounter Plan of Treatment Not on file documented as of this encounter Visit Diagnoses Not on filedocumented in this encounter Care Teams Hospice Educator Relationship Specialty Start Date End Date Orlando Cortez MD [address] [place] [phone] PCP - General FAMILY PRACTICE 06/27/18 documented as of this encounter
--- OUTSIDE RECORDS SUMMARY | 2024-07-15 03:07 | XMS_ITS | Encounter Summary ---
Author Organization [facility] Address [facility]6 [facility]. [place], [place] [address] [place] [address] Care Team Providers Care Field Service Supervisor Name Role Phone Orlando Cortez MD Primary Care Provider [phone] Reason for Referral * Imaging (Routine) - Closed Specialty Diagnoses / Procedures Referred By Brandieac t Referred To Contact RADIOLOGY Diagnoses Memory loss Procedures MRI BRAIN WO CON Deshawn Angela NP [address] [place] [address] Phone: tel: fax: Referral ID Status Reason Start Date Expiration Date Visits Re quested Visits Authorized [id number] Closed 11/13/2021 12/14/2022 1 1 Reason for Visit * Imaging (Routine) - Closed Specialty Diagnoses / Procedures Referred By Mecca alfaro Referred To Contact RADIOLOGY Diagnoses Memory loss Procedures MRI BRAIN WO Deshawn Stephens NP [address] [place] [address] Phone: tel: fax: Referral ID Status Reason Start Date Expiration Date Visits Re quested Visits Authorized [id number] Closed 11/13/2021 12/14/2022 1 1 Encounter Details Date Type Department Care Team (Latest Contact Info) Description 11/26/2021 1:14 PM CDT - 11/26/2021 11:59 PM CDT Hospital Encounter [facility] [address] [place] [address] Deshawn Angela, KARINA [address] [place] [phone] Discharge Disposition: Home or Self Care (Routine [...] PM CDT documented as of this encounter Medications [...] tablet Take 10 mg by mouth daily. [place]-3 Fatty Acids (FISH OIL PEARLS) 300 MG Cap Take 1,000 Units by mouth daily. 11/17/2017 raloxifene 60 MG tablet Take 1 tablet by mouth daily. 01/06/2018 traMADol 50 MG tabletIndications :Chronic Pain Take 50 mg by mouth 4 (four) times daily. Indications: Chronic Pain 2 01/18/2018 vitamin D3, cholecalciferol, 1000 UNIT Tab tablet 2,000 Units daily. 04/07/2021 Misc Natural Products (OSTEO BI-FLEX TRIPLE STRENGTH) [...] Name Priority Date/Time Associated Diagnosis Comments MRI BRAIN WO CON Routine 11/26/2021 2:02 PM CDT Memory loss documented in this encounter Results * MRI BRAIN WO CON (11/26/2021 2:02 PM CDT) Anatomical Region Laterality Modality Head Magnetic Resonan ce 11/26/2021 7:13 PM CDT Impressions 11/26/2021 9:19 PM CDT IMPRESSION: 1. ??No acute intracranial abnormality. 2. ??Moderate chronic small vessel ischemic change and mild to moderate global cerebral volume loss. 3. 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 Referred By: DESHAWN ANGELA Interpreted By: Kit Peña MD, 11/26/2021 7:13 PM Narrative 11/26/2021 9:19 PM CDT EXAMINATION: MRI BRAIN WO CON, 11/26/2021 7:13 PM TECHNIQUE: Axial and sagittal T1, axial and coronal T2, axial DWI, axial T2 FLAIR, as well as axial T2 GRE magnetic resonance images of the brain HISTORY: Memory loss, forgetfulness COMPARISON: MRI brain 06/03/2016 FINDINGS: There is no restricted diffusion to suggest an acute infarction. ??There is no hemorrhagic focus of susceptibility. ??Scattered subcortical and periventricular white matter foci demonstrating increased signal on T2-weighted FLAIR images that are nonspecific but most commonly seen in setting of chronic small vessel ischemic change. ??Glua-kj-[id number] global cerebral volume loss ex vacuo dilatation of ventricles and cerebral sulci. ??There are 2 old punctate infarcts within the left cerebellar hemisphere (best seen on series 3 images 5 and 7). ??The sellar, callosal, pineal, and craniovertebral junction regions appear within normal limits. There is no extra-axial fluid collection. ??The basal cisterns appear normal. ??The proximal intracranial arterial flow voids have normal appearance. ??The orbital contents appear normal. ??There is mild mucosal thickening involving the right maxillary sinus. ??The paranasal sinuses and mastoid air cells are otherwise well aerated. Procedure Note Kit Peña MD - 11/26/2021 EXAMINATION: MRI BRAIN WO [facility], 11/26/2021 7:13 PM TECHNIQUE: Axial and sagittal T1, axial and coronal T2, axial DWI, axialT2 FLAIR, as well as axial T2 GRE magnetic resonance images of the brain HISTORY: Memory loss, forgetfulness COMPARISON: MRI brain 06/03/2016 FINDINGS: There is no restricted diffusion to suggest an acute infarction.There is no hemorrhagic focus of susceptibility. Scattered subcorticaland periventricular white matter foci demonstrating increased signal onT2-weighted FLAIR images that are nonspecific but most commonly seen insetting of chronic small vessel ischemic change. 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 The sellar, callosal, pineal, andcraniovertebral junction regions appear within normal limits. There is no extra-axial fluid collection. The basal cisterns appearnormal. The proximal intracranial arterial flow voids have normalappearance. The orbital contents appear normal. There is mild mucosalthickening involving the right maxillary sinus. The paranasal sinuses andmastoid air cells are otherwise well aerated. IMPRESSION: 1. No acute intracranial abnormality. 2. Moderate chronic small vessel ischemic change and mild to moderateglobal cerebral volume loss. 3. 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 Referred By: DESHAWN ANGELA Interpreted By: Kit Peña MD, 11/26/2021 7:13 PM us Deshawn Angela ANATOMIC PATHOLOGIST MRI Fin al Result documented in this encounter Visit Diagnoses Diagnosis Memory loss documented in this encounter Care Teams Field Service Supervisor Relationship Specialty Start Date End Date Orlando Cortez MD [address] [place] [phone] PCP - General FAMILY PRACTICE 06/27/18 documented as of this encounter
--- OUTSIDE RECORDS SUMMARY | 2024-07-15 03:07 | XMS_ITS | Encounter Summary ---
Author Organization [facility] Address [facility]6 [facility] [place] [address] [place] [address] Care Team Providers Care Keyboard Instrument Tuner Name Role Phone Orlando Cortez MD Primary Care Provider Reason for Referral * Surgical (Routine) - Closed Specialty Diagnoses / Procedures Referred By Contac t Referred To Contact Diagnoses Other closed fracture of distal end of right radius, initial encounter Procedures Case request operating room: Open reduction internal fixation RIGHT wriststryker notified, c-arm, told to arrive at 0615 Maximo Lara MD [address] [place] [address] Phone: tel: fax: Referral ID Status Reason Start Date Expiration Date Visits Re quested Visits Authorized [id number] Closed 07/02/2022 07/02/2023 1 1 ICAL APPLIANCES SALESPERSON Encounter Details Date Type Department Care Team (Late st Contact Info) Description 07/02/2022 Prep for Procedure [facility] [address] [place] [address] Maximo Lara MD [address] [place] [address] Social History Tobacco Use Types Packs/Day Years [...] Coronavirus/COVID-19? No / Unsure 07/02/2022 10:53 AM SURGICAL APPLIANCES SALESPERSON documented as of this encounter Plan of Treatment Scheduled Orders Name Type Priority Associated Diagnoses Orde r Schedule Case request operating room: Open reduction internal fixation RIGHT wriststryker notified, c-arm, told to arrive at 0615 Case Request Routine Other closed fracture of distal end of right radius, initial encounter Once for 1 Occurrences starting 07/02/2022 until 07/02/2022 documented as of this encounter Results * XR FLUOROSCOPY UP TO 1HR (07/03/2022 8:50 AM SURGICAL APPLIANCES SALESPERSON) Anatomical Region Laterality Modality Undefined Radiographic Mely ging 07/03/2022 8:54 AM SURGICAL APPLIANCES SALESPERSON Impressions 07/03/2022 8:56 AM SURGICAL APPLIANCES SALESPERSON impression: 2 spot images of the right wrist obtained for operative control demonstrate internal fixation of a distal radius fracture without apparent hardware complication. Referred By: ?? Interpreted By: Ricci Amador MD, 07/03/2022 8:54 AM Narrative 07/03/2022 8:56 AM SURGICAL APPLIANCES SALESPERSON Examination: XR FLUOROSCOPY UP TO 1HR Exam [...] us Maximo Lara MD FLUOROSCOPY Final Result documented in this encounter Visit Diagnoses Diagnosis Other closed fracture of distal end of right radius, initial encounter- Primary documented in this encounter Care Teams Keyboard Instrument Tuner Relationship Specialty Start Date End Date Orlando Cortez MD [address] [place] [phone] PCP - General FAMILY PRACTICE 06/27/18 documented as of this encounter
--- OUTSIDE RECORDS SUMMARY | 2024-07-15 03:07 | XMS_ITS | Encounter Summary ---
Author Organization [facility] Address [address] [place] [address]. [place] [address] [place] [address] Care Team Providers Care Register Repairer Name Role Phone Orlando Cortez MD Primary Care Provider [phone] Encounter Details Date Type Department Care Team (Late st Contact Info) Description 11/14/2018 Abstract [facility] [address] [place] [phone] Stephan Barreto FNP-WILLARD [address] [place] [address] Social History Tobacco Use Types Packs/Day Years [...] as of this encounter Progress Notes * RADHA Hurtado - 11/14/2018 2:15 PM CDT Chief Complaint Chief Complaint: The patient presents to the office today with LEFT shoulder pain. History of Present Illness HPI: Patient presented to the clinic today for her LEFT shoulder. She reports pain with overhead lifting, pain with reaching, grinding, and popping. She denies night pain. Her injection provided her minimal relief and her pain increases with lifting. PREVIOUS HISTORY 11-08-17 Patient returns to clinic today in follow up for her LEFT shoulder. She isRIGHT handed. She denies any injury. She reports she has painful range of motion with activity. Shealso has pain at night that keeps her awake. She states she did 9 weeks of physical therapy and sawno improvement in her symptoms. Shoulder Problem: The patient is being seen for follow-up of a shoulder problem. Review of Systems See HPI for pertinent positives. Active Problems 1. Aftercare following hip joint replacement surgery (V54.81,V43.64) (Z47.1,Z96.649) 2. Arthritis of right acromioclavicular joint (716.91) (M19.011) 3. Bone lesion (733.90) (M89.9) 4. Cervical pain (723.1) (M54.2) 5. Cervical radiculopathy (723.4) (M54.12) 6. Chronic right hip pain (719.45,338.29) (M25.551,G89.29) 7. Chronic right shoulder pain (719.41,338.29) (M25.511,G89.29) 8. Colon wall thickening (569.89) (K63.9) 9. Hammer toe (735.4) (M20.40) 10. Incomplete tear of right rotator cuff (840.4) (M75.111) 11. 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 Lumbar back pain (724.2) (M54.5) 13. Lumbar radiculopathy, chronic (724.4) (M54.16) 14. Memory change (780.93) (R41.3) 15. Nontraumatic complete tear of right rotator cuff (727.61) (M75.121) 16. Osteoarthritis of right glenohumeral joint (715.91) (M19.011) 17. Osteoarthritis of right hip (715.95) (M16.11) 18. Ovarian cyst (620.2) (N83.209) 19. Renal lesion (593.9) (N28.9) 20. Right elbow pain (719.42) (M25.521) 21. Right shoulder pain (719.41) (M25.511) 22. Rotator cuff arthropathy of left shoulder (716.81) (M12.812) 23. Rupture of right distal biceps tendon, subsequent encounter (V58.89,841.8) (S46.211D) 24. Shoulder pain, left (719.41) (M25.512) 25. Status post orthopedic surgery, follow-up exam (V67.09) (Z09) 26. Status post osteotomy (V45.89) (Z98.890) 27. Traumatic rupture of right distal biceps tendon, initial encounter (840.8) (S46.211A) 28. Ulnar nerve compression, right (354.2) (G56.21) Past Medical History 1. History of hypercholesterolemia (V12.29) (Z86.39) Surgical History 1. History of Hip Replacement Right 2. History of Knee Surgery Left 3. History of Knee Surgery Right Family History Family History 1. No pertinent family history Social History ?? Former smoker (V15.82) (Z87.891) ?? No alcohol use ?? Primary language is Kosovan ?? Retired Current Meds 1. Aricept 10 MG Oral Tablet; TAKE 1 TABLET DAILY DIRECTED; Therapy: 17Nov2017 to Recorded 2. Aspir-Low 81 MG Oral Tablet Delayed Release; TAKE 1 TABLET DAILY; Therapy: 17Nov2017 to Recorded 3. Atorvastatin Calcium 40 MG Oral Tablet; Therapy: 02Dec2015 to Recorded 4. Centrum Silver Ultra Womens Oral Tablet; TAKE 1 TABLET DAILY; Therapy: 17Nov2017 to Recorded 5. Evista 60 MG Oral Tablet; TAKE 1 TABLET DAILY; Therapy: 06Jan2018 to Recorded 6. Fish Oil Pearls 300 MG Oral Capsule; TAKE DIRECTED; Therapy: 17Nov2017 to Recorded 7. Melatonin 10 MG Oral Tablet; TAKE 1 TABLET Bedtime; Therapy: 17Nov2017 to Recorded 8. Osteo Bi-Flex Triple Strength Oral Tablet; TAKE 1 TABLET DAILY DIRECTED; Therapy: 17Nov2017 to Recorded 9. Sertraline HCl - 50 MG Oral Tablet; Therapy: 10Aug2016 to Recorded 10. traMADol HCl - 50 MG Oral Tablet; one or two tabs by mouth four times a day as needed; Therapy: 17Nov2017 to Recorded 11. Triamcinolone Acetonide 0.1 % External Cream; Therapy: 24Dec2016 to Recorded Physical Exam Constitutional: alert and in no acute distress. Neurological:. the patient was oriented to person, place, and time. . mood and affect were appropriate.. Eyes: pupils were equal in size, round, reactive to light, with normal accommodation. ENT: hearing was normal. Neck: the appearance of the neck was normal. Pulmonary: no respiratory distress. Skin: no injuries or skin lesions on the left upper extremity. Left Shoulder: EXAM today reveals range of motion FF 100, ABD 45, ER limited, IR to L5, positive Gama, Positive speed, poor cuff strength, pain with cuff resistance, crepitus, NVI Results/Data XR Shoulder 2+ View Lt 14Nov2018 04:00PM Stephan Barreto Test Name Result Flag Reference XR Shoulder 2+ View Lt (Report) [address] Patient Name: YOANDY SALINAS Date of : 1940 Med Rec #: [id number] Age/Sex: 78/F Pt. Location: ORTHO Attending Provider: STEPHAN BARRETO NP Ordering Provider: STEPHAN BARRETO NP Study Date Order Number Procedure 11/14/18 [id number] XR Shoulder 2 or more Views Lt Signed 11/14/2018, 1325 hours. HISTORY: Chronic left shoulder pain. M 25.512. EXAM: 3 views of the left shoulder. Correlation to prior study 11/08/2017. FINDINGS: Osteoarthritis left glenohumeral joint with joint space narrowing, slight superior subluxation of the humeral head on the glenoid the scapula and spurring about the inferior aspect of the joint. Minimal arthritis left acromioclavicular joint. No fracture. No gross bone destruction. No periarticular soft tissue calcification. IMPRESSION: Arthritic changes. Electronically Signed By: NARINDER PITTS MD 11/14/18 1601 Dictated On: 11/14/18 1600 Interpreted By: NARINDER PITTS MD Transcribed On: 11/14/18 1600 - INFCE Views: of the left shoulder. XRAY today reveals severe glenohumeral slight hi riding humerus with moderate AC joint osteoarthritis and type II acromion, no acute bony injury Findings: Procedure Procedure: Injection of the left glenohumeral joint. Indication: osteoarthritis. Were discussed with the patient. Verbal consent was obtained prior to the procedure. Alcohol and betadine was used to prep the area. ethyl chloride spray was used as a topical anesthetic.. A 22-gauge and 1.5 inch was used to inject 4 mL of 1% Lidocaine and 1 mL methylprednisolone 80 mg/mL. A bandage was applied. Post-Procedure: the patient tolerated the procedure well. Complications: there were no complications. Follow-up in the office in 2 week(s). Assessment 1. 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 Continue with our present treatment plan.; Status:Complete; Done: 96Eed0204 09:41PM 2. We have injected a steroid medicine into your shoulder to help reduce swelling.; Status:Complete; Done: 17Pbe1139 09:41PM 3. You may continue or resume your normal level of activity.; Status:Complete; Done: 39Dyv3301 09:41PM 4. Your joint was injected today.; Status:Complete; Done: 23Efq3440 09:41PM Shoulder pain, left 5. XR Shoulder 3 View Lt; Status:Active; Requested for:39Uzh3938; Given injection prior to leaving the office. Activity as tolerated. She will follow up in 2 weeks to discuss possible options depending on her relief with the injection. Signatures Electronically signed by : JERRY Zapata; Nov 14 2018 9:42PM OUTCOMES SPECIALIST (Author) documented in this encounter Plan of Treatment Not on file documented as of this encounter Procedures Procedure Name Priority Date/Time Associated Diagnosis Comments XR SHOULDER LT MIN 2V Routine 11/14/2018 4:00 PM CDT documented in this encounter Results * XR SHOULDER LT MIN 2V (11/14/2018 4:00 PM CDT) Anatomical Region Laterality Modality Shoulder Radiographic Mely ging 11/14/2018 4:00 PM CDT 11/14/2018 4:00 PM CDT Narrative 11/14/2018 4:03 PM CDT [facility] ?? [facility] ?? [place], [place] ? Patient Name: YOANDY SALINAS Date of : 1940 ?? Med Rec #: [id number] ??Age/Sex: 78/F ?Pt. Location: ORTHO ?? Attending Provider: STEPHAN BARRETO NP ?? Ordering Provider: STEPHAN BARRETO NP ? Study Date Order Number Procedure ?? 11/14/18 [id number] XR Shoulder 2 or more Views Lt ? Signed ? 11/14/2018, 1325 hours. ? HISTORY: Chronic left shoulder pain. M 25.512. ? EXAM: 3 views of the left shoulder. Correlation to prior study 11/08/2017. ? FINDINGS: Osteoarthritis left glenohumeral joint with joint space narrowing, slight superior subluxation of the humeral head on the glenoid the scapula and spurring about the inferior aspect of the joint. Minimal arthritis left acromioclavicular joint. No fracture. No gross bone destruction. No periarticular soft tissue calcification. ? IMPRESSION: ?? Arthritic changes. ? Electronically Signed By: NARINDER PITTS MD 11/14/18 1601 ? Dictated On: 11/14/18 1600 ?? Interpreted By: ANRINDER PITTS MD ?? Transcribed On: 11/14/18 1600 - INFCE ?? Procedure Note Marc Day MD - 12/15/2018 [place] [id number] [place], [place] Patient Name: YOANDY SALINAS Date of : 1940 Med Rec #: [id number] Age/Sex: 78/F Pt. Location: ORTHO Attending Provider: STEPHAN BARRETO NP Ordering Provider: STEPHAN BARRETO NP Study Date Order Number Procedure 11/14/18 [id number] XR Shoulder 2 or more Views Lt Signed 11/14/2018, 1325 hours. HISTORY: Chronic left shoulder pain. M 25.512. EXAM: 3 views of the left shoulder. Correlation to prior study 11/08/2017. FINDINGS: Osteoarthritis left glenohumeral joint with joint spacenarrowing, slight superior subluxation of the humeral head on the glenoid the scapula and spurringabout the inferior aspect of the joint. Minimal arthritis left acromioclavicular joint. No fracture.No gross bone destruction. No periarticular soft tissue calcification. IMPRESSION: Arthritic changes. Electronically Signed By: NARINDER PITTS MD 11/14/18 1601 Dictated On: 11/14/18 1600 Interpreted By: NARINDER PITTS MD Transcribed On: 11/14/18 1600 - INFCE us Stephan Barreto REGISTRATION MANAGER-BC GENERAL IMAGING Final Resu lt documented in this encounter Visit Diagnoses Not on filedocumented in this encounter Care Teams Register Repairer Relationship Specialty Start Date End Date Orlando Cortez MD [address] [place] [phone] PCP - General FAMILY PRACTICE 06/27/18 documented as of this encounter
--- OUTSIDE RECORDS SUMMARY | 2024-07-15 03:07 | XMS_ITS | Encounter Summary ---
Author Organization [facility] Address [facility] [place] [address] [place] [address] Care Team Providers Care Forming Machine Upkeep Mechanic Name Role Phone Orlando Cortez MD Primary Care Provider [phone] Reason for Visit * Reason Onset Date Comments Medication Request 02/26/2020 Encounter Details Date Type Department Care Team (Late st Contact Info) Description 02/26/2020 Telephone [facility] [address] [address] Joselito Alexander MD [address] [place] [address] Medication Request Social History Tobacco [...] encounter Progress Notes * Marcella Francisco - 02/26/2020 9:43 AM CDT Refill sent on 02/23/20. * Randi Smart RN - 02/26/2020 9:00 AM CDT [facility] to get a refill faxed to pharmacy for Gabapentin. Please call. documented in this encounter Plan of Treatment Not on file documented as of this encounter Visit Diagnoses Not on filedocumented in this encounter Care Teams Forming Machine Upkeep Mechanic Relationship Specialty Start Date End Date Orlando Cortez MD [address] [place] [phone] PCP - General FAMILY PRACTICE 06/27/18 documented as of this encounter
--- OUTSIDE RECORDS SUMMARY | 2024-07-15 03:07 | XMS_ITS | Encounter Summary ---
Author Organization [facility] Address [facility]. [place], [place] [address] [place] [address] Care Team Providers Care Pediatric Critical Care Nurse Name Role Phone Orlando Medina MD Primary Care Provider [phone]- [phone] Reason for Referral * Imaging (Routine) - Closed Specialty Diagnoses / Procedures Referred By Contac t Referred To Contact RADIOLOGY Diagnoses Osteoporosis Procedures BONE DENSITY/DEXA Orlando Medina MD [address] [place] [phone] Phone: tel: fax: Referral ID Status Reason Start Date Expiration Date Visits Re quested Visits Authorized [id number] Closed 09/10/2021 10/11/2022 1 1 Reason for Visit * Imaging (Routine) - Closed Specialty Diagnoses / Procedures Referred By Contac t Referred To Contact RADIOLOGY Diagnoses Visit for screening mammogram Procedures MG SCREENING W MAHOGANY TARA DIGI Orlando Medina MD [address] [place] [phone] Phone: tel: fax: Referral ID Status Reason Start Date Expiration Date Visits Re quested Visits Authorized [id number] Closed 09/10/2021 10/11/2022 1 1 Encounter Details Date Type Department Care Team (Latest Contact Info) Description 10/01/2021 1:24 PM CDT - 10/01/2021 11:59 PM CDT Hospital Encounter [facility] [address] [place] [address] Orlando Medina MD [address] [place] [phone] Discharge Disposition: Home or Self Care (Routine [...] tablet Take 10 mg by mouth daily. [place]-3 Fatty Acids (FISH OIL PEARLS) 300 MG [...] Date/Time Associated Diagnosis Comments BONE DENSITY/DEXA Routine 10/01/2021 4:4 7 PM CDT Osteoporosis MG SCREENING W MAHOGANY TARA DIGI Routine 10/01/2021 2:02 PM CDT Visit for screening mammogram documented in this encounter Results * BONE DENSITY/DEXA (10/01/2021 4:47 PM CDT) Anatomical Region Laterality Modality Bone Bone Density 10/01/2021 2:56 PM CDT Impressions 10/01/2021 3:09 PM CDT Impression: BMD measured at left total hip and left femoral neck at WHO category level of osteopenia. BMD measured at AP lumbar spine at level of normal. Osteoarthritis left hip. Ordered By: ORLANDO MEDINA Interpreted By: Jaylon Sanchez MD, 10/01/2021 2:56 PM Narrative 10/01/2021 3:09 PM CDT Examination: DEXA Bone densitometry EXAM DATE: ??10/01/2021 1:25 PM Clinical history: Postmenopausal. Prior fracture. History of rheumatoid arthritis. Vitamin D use. Dairy product consumption. Medication use for treatment of osteoporosis. Technique: DEXA bone minimal density evaluation was performed in the AP projection over the lumbar spine and over both hips in the AP projection utilizing standard imaging techniques. Assessment: The BMD measured at the AP spine L1-L4 is 1.029 g/cm? with a T-score of -0.2 and a Z-Score of ??2.5. ?? Bone density is up to 10% below young normal. This patient is considered normal according to the World Health Organization (WHO) criteria. Fracture risk is low. The BMD measured at the femur total left is 0.728 g/cm? with a T-score of -1.8 and a Z-Score of 0.2. ?The patient is considered osteopenic according to World Health Organization (WHO) criteria. Bone density is between 10 and 25% below young normal. Fracture risk is moderate. Treatment is advised. The BMD measured at the left femoral neck is 0.642 g/sq cm resulting in a T score of -1.9 and a Z score of 0.4, values at the WHO category level of osteopenia. There is a ringlike sclerosis in the superior lateral aspect of the left femoral head corresponding to sclerosis about a subcortical cyst secondary to osteoarthritis is demonstrated on CT imaging of the abdomen and pelvis 12/30/2017. FRAX results: 10 year probability of major osteoporotic fracture 26% and hip fracture 7%. Recommendations: All patients should ensure an adequate [...] results, a followup exam is recommended in no earlier than 2 years for routine follow-up. As early as 1 year to assess efficacy of new medication therapy for treatment of osteoporosis. Procedure Note Jaylon Sanchez MD - 10/01/2021 Examination: DEXA Bone densitometry EXAM DATE: 10/01/2021 1:25 PM Clinical history: Postmenopausal. Prior fracture. History of rheumatoidarthritis. Vitamin D use. Dairy product consumption. Medication use fortreatment of osteoporosis. Technique: DEXA bone minimal density evaluation was performed in the APprojection over the lumbar spine and over both hips in the AP projectionutilizing standard imaging techniques. Assessment: The BMD measured at the AP spine L1-L4 is 1.029 g/cm? with a T-score of-0.2 and a Z-Score of 2.5. Bone density is up to 10% below youngnormal. This patient is considered normal according to the World HealthOrganization (WHO) criteria. Fracture risk is low. The BMD measured at the femur total left is 0.728 g/cm? with a T-score of-1.8 and a Z-Score of 0.2. The patient is considered osteopenicaccording to World Health Organization (WHO) criteria. Bone density isbetween 10 and 25% below young normal. Fracture risk is moderate.Treatment is advised. The BMD measured at the left femoral neck is 0.642 g/sq cm resulting in aT score of -1.9 and a Z score of 0.4, values at the WHO category level ofosteopenia. There is a ringlike sclerosis in the superior lateral aspect of the leftfemoral head corresponding to sclerosis about a subcortical cyst secondaryto osteoarthritis is demonstrated on CT imaging of the abdomen and pelvis12/30/2017. FRAX results: 10 year probability of major osteoporotic fracture 26% andhip fracture 7%. Recommendations: All patients should ensure an adequate [...] results, a followup exam is recommended in no earlier than2 years for routine follow-up. As early as 1 year to assess efficacy ofnew medication therapy for treatment of osteoporosis. Impression: BMD measured at left total hip and left femoral neck at WHO category levelof osteopenia. BMD measured at AP lumbar spine at level of normal. Osteoarthritis left hip. Ordered By: ORLANDO MEDINA Interpreted By: Jaylon Sanchez MD, 10/01/2021 2:56 PM us Orlando Medina MD DEXA Final Resul t documented in this encounter Visit Diagnoses Diagnosis Osteoporosis Osteoporosis, unspecified documented in this encounter Care Teams Pediatric Critical Care Nurse Relationship Specialty Start Date End Date Orlando Medina MD [address] [place] [phone] PCP - General FAMILY PRACTICE 06/27/18 documented as of this encounter
--- OUTSIDE RECORDS SUMMARY | 2024-07-15 03:07 | XMS_ITS | Encounter Summary ---
Author Organization [facility] Address [address] [place] [address]. [place] [address] [place] [address] Care Team Providers Care Bonderizer Name Role Phone Orlando Cortez MD Primary Care Provider [phone] Encounter Details Date Type Department Care Team (Late st Contact Info) Description 07/02/2022 Orders Only [facility] [address], [facility] [address] [place] [address] Stephan Barreto, [facility] [address] [facility] [place] [address] Social History Tobacco Use Types Packs/Day Years [...] Coronavirus/COVID-19? No / Unsure 06/26/2022 3:18 PM TRAINING DEVELOPMENT MANAGER documented as of this encounter Plan of Treatment Not on file documented as of this encounter Results * XR WRIST RT 2V (07/02/2022 11:16 AM TRAINING DEVELOPMENT MANAGER) Anatomical Region Laterality Modality Wrist Radiographic Mely ging 07/02/2022 11:1 9 AM TRAINING DEVELOPMENT MANAGER Impressions 07/02/2022 11:22 AM TRAINING DEVELOPMENT MANAGER IMPRESSION: No remarkable change in position, alignment or radiographic appearance of fractures distal right radius and ulna since study 06/26/2022. 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 Ordered By: STEPHAN BARRETO Interpreted By: Jaylon Sanchez MD, 07/02/2022 11:19 AM Narrative 07/02/2022 11:22 AM TRAINING DEVELOPMENT MANAGER 06/30/2020 10:29 AM. HISTORY: Follow-up fracture. EXAM: [...] MD, 07/02/2022 11:19 AM us Stephan Barreto INSPECTION SUPERVISOR-BC GENERAL IMAGING Final Resu lt documented in this encounter Visit Diagnoses Diagnosis Injury of right wrist, initial encounter- Primary Injury of right wrist, initial encounter documented in this encounter Care Teams Bonderizer Relationship Specialty Start Date End Date Orlando Cortez MD [address] [place] [phone] PCP - General FAMILY PRACTICE 06/27/18 documented as of this encounter
--- OUTSIDE RECORDS SUMMARY | 2024-07-15 03:07 | XMS_ITS | Encounter Summary ---
Author Organization [facility] Address [address] [place] [address] [place] [address] Care Team Providers Care Marine Mechanic Name Role Phone Orlando Cortez MD Primary Care Provider Reason for Visit * Auth/Cert (Routine) Specialty Diagnoses / Procedures Referred By Contac t Referred To Contact Diagnoses Other closed fracture of distal end of right radius, initial encounter S52.593D Procedures Open reduction internal fixation RIGHT wrist; ; rosie notified, c-arm, told to arrive at 0615 Maximo Arshad MD [address] [place] [phone] Phone: tel: fax: Referral ID Status Reason Start Date Expiration Date Visits Re quested Visits Authorized [id number] 1 1 Encounter Details Date Type Department Care Team (Late st Contact Info) Description 07/03/2022 7:30 AM ROTARY ENGINE ASSEMBLER - 07/03/2022 8:56 AM [facility] Surgery [facility] [place] [address] Maximo Arshad MD [address] [place], [place] [id number] Open reduction internal fixation RIGHT wrist Surgery Details Date/Time Status Location OR Service Patient Class Case Class Case Type Trauma Case? 07/03/2022 7:30 AM Posted SFL OR OR 2 Orthopedics Short Stay/Outpat ient Surgery No Panel 1 Procedure LRB Anes Op Region Wound Class Comments Open reduction internal fixation RIGHT wrist Right Monitor Anesthesia Care Arm Lower Clean Surgeon Surgeon Role Service Panel Maximo Arshad MD Primary Orthopedics 1 documented in this encounter Social History Tobacco [...] Coronavirus/COVID-19? No / Unsure 07/02/2022 2:46 PM ROTARY ENGINE ASSEMBLER documented as of this encounter Last Filed Vital Signs Vital Sign Reading Time Taken Comments Blood Pressure 122/81 07/03/2022 8:43 AM ROTARY ENGINE ASSEMBLER Pulse 69 07/03/2022 8:43 AM ROTARY ENGINE ASSEMBLER Temperature 35.8 ??C (96.5 ??F) 07/03/2022 8:43 AM CS T Respiratory Rate 15 07/03/2022 8:43 AM ROTARY ENGINE ASSEMBLER Oxygen Saturation 98% 07/03/2022 8:43 AM ROTARY ENGINE ASSEMBLER Inhaled Oxygen Concentration - - Weight 84.4 kg (186 lb) 07/02/2022 2:43 PM ROTARY ENGINE ASSEMBLER Height 177.8 cm (5' 10) 07/02/2022 2:43 PM ROTARY ENGINE ASSEMBLER Body Mass Index 26.69 07/02/2022 2:43 PM ROTARY ENGINE ASSEMBLER documented in this encounter Discharge Instructions * Attachments The following attachments cannot be sent through Care Everywhere. * Moderate Sedation in Adults Discharge Instructions (Welsh) * Nerve Blocks ([place]) * Open Reduction and Internal Fixation Surgery Discharge Instructions ([place]) documented in this encounter Medications at Time [...] tablet Take 10 mg by mouth daily. Brothers-3 Fatty Acids (FISH OIL PEARLS) 300 MG [...] OR Notes * Op Note - Maximo Arshad MD - 07/03/2022 8:49 AM CST Yoandy [place] 1940 [id number] 07/03/2022 Pre op diagnosis: Right distal radius fracture Post op diagnosis: Same Procedure: Open reduction internal fixation right distal radius fracture using a [place] volar locking plate Surgeon: MAXIMO RASHAD MD Anesthesia: Regional block with IV sedation [...] The fracture was then reduced and a [place] locking plate positioned under fluoroscopic visualization. A [...] counts were correct x2 following the procedure RY ENGINE ASSEMBLER * Brief Op Note - Maximo Arshad MD - 07/03/2022 8:48 AM CST [facility] Brief Op [facility] reduction internal fixation RIGHT wrist rosie notified, c-arm, told to arrive at 0615 Procedure Note Yoandy Salinas 07/03/2022 0730 Procedure(s) (LRB): Open reduction internal fixation RIGHT wrist rosie notified, c-arm, told to arrive at 0615 (Right) Surgeon(s): Maximo Arshad MD Crushed Stone Grader: Sulfuric Acid Plant Operator: Kanika Raza RN Anesthesia: Monitor Anesthesia Care Pre-Op Diagnosis: S52.591A Post-Op Diagnosis: Same Findings: Estimated Blood Loss: less than 50 mL Specimens: None MAXIMO ARSHAD MD Date: 07/03/2022 Time: 8:48 AM RY ENGINE ASSEMBLER documented in this encounter Plan of Treatment Not on file documented as of this encounter Procedures Procedure Name Priority Date/Time Associated Diagnosis Comments XR FLUOROSCOPY UP TO 1HR Routine 07/03/2022 8:50 AM ROTARY ENGINE ASSEMBLER Other closed fracture of distal end of right radius, initial encounter OPEN REDUCTION INTERNAL FIXATION WRIST 07/03/2022 7:25 AM ROTARY ENGINE ASSEMBLER Other closed fracture of distal end of right radius, initial encounter COMPREHENSIVE METABOLIC PANEL Routine 07/03/2022 6:42 AM ROTARY ENGINE ASSEMBLER CBC W/DIFF AUTOMATED Routine 07/03/2022 6:42 AM ROTARY ENGINE ASSEMBLER ECG 12-LEAD Routine 07/03/2022 6:39 AM ROTARY ENGINE ASSEMBLER documented in this encounter Results * XR FLUOROSCOPY UP TO 1HR (07/03/2022 8:50 AM ROTARY ENGINE ASSEMBLER) Anatomical Region Laterality Modality Undefined Radiographic Mely ging 07/03/2022 8:54 AM ROTARY ENGINE ASSEMBLER Impressions 07/03/2022 8:56 AM ROTARY ENGINE ASSEMBLER impression: 2 spot images of the right wrist obtained for operative control demonstrate internal fixation of a distal radius fracture without apparent hardware complication. Referred By: ?? Interpreted By: Ricci Amador MD, 07/03/2022 8:54 AM Narrative 07/03/2022 8:56 AM ROTARY ENGINE ASSEMBLER Examination: XR FLUOROSCOPY UP TO 1HR Exam [...] By: Ricci Amador MD, 07/03/2022 8:54 AM Maximo Arshad MD FLUOROSCOPY Final Result * (ABNORMAL) COMPREHENSIVE METABOLIC PANEL (07/03/2022 6:42 AM ROTARY ENGINE ASSEMBLER) SODIUM S/P/B 143 136 - 145 MMOL/L 07/03/2022 7:07 AM [facility] POTASSIUM S/P/B 3.3(L) 3.5 - 5.1 MMOL/L 07/03/2022 7:07 AM [facility] CHLORIDE S/P/B 103 98 - 107 MMOL/L 07/03/2022 7:07 AM [facility] CO2 32.0 21.0 - 32.0 MMOL/L 07/03/2022 7:07 AM [facility] GLUCOSE 132(H) 70 - 99 MG/DL 07/03/2022 7:07 AM [facility] Comment: FASTING GLUCOSE 100 TO 125 MG/DL IS CONSISTENT WITH IMPAIRED FASTING GLUCOSE. FASTING GLUCOSE >125 MG/DL IS CONSISTENT WITH DIABETES. RANDOM GLUCOSE >200 MG/DL WITH HYPERGLYCEMIC SYMPTOMS IS CONSISTENT WITH DIABETES. PER ADA GUIDELINES BUN 19 6 - 24 MG/DL 07/03/2022 7:07 AM [facility] CREATININE S/P/B 1.17(H) 0.55 - 1.02 MG/DL 07/03/2022 7:07 AM [facility] CALCIUM S/P/B 8.6 8.4 - 10.5 MG/DL 07/03/2022 7:07 AM [facility] BILIRUBIN TOTAL S/P/B 1.0 0.2 - 1.0 MG/DL 07/03/2022 7:07 AM [facility] Comment: THIS ASSAY IS NOT RECOMMENDED FOR PATIENTS UNDERGOING TREATMENT WITH ELTROMBOPAG DUE TO THE POTENTIAL FOR FALSELY ELEVATED RESULTS. ALKALINE PHOSPHATASE S/P/B 101 55 - 142 U/L 07/03/2022 7:07 AM [facility] AST 16 15 - 37 U/L 07/03/2022 7:07 AM [facility] ALT 33 14 - 59 U/L 07/03/2022 7:07 AM [facility] TOTAL PROTEIN S/P/B 6.0(L) 6.4 - 8.2 G/DL 07/03/2022 7:07 AM [facility] ALBUMIN S/P/B 2.8(L) 3.4 - 5.0 G/DL 07/03/2022 7:07 AM [facility] ANION GAP 8.0 5.0 - 15.0 MMOL/L 07/03/2022 7:07 AM [facility] OSMOLALITY (CALC) 300 MOSM/KG 022 7:07 AM [facility] Comment:REFERENCE RANGE NOT ESTABLISHED GFR ESTIMATE 47(L) >89 ML/MIN/1. 73 M2 07/03/2022 7:07 AM [facility] GFR NOTES GFR REFERENCE S: 07/03/2022 7:07 AM [facility] Comment: THE ESTIMATED GFR IS [...] FAILURE: <15 ml/min/1.73 m2 07/03/2022 6:42 AM ROTARY ENGINE ASSEMBLER Marco Jeremy Terry OIL BURNER REPAIRER LABORATORY Final Resu lt [facility] [address] [place] [address], * (ABNORMAL) CBC W/DIFF AUTOMATED (07/03/2022 6:42 AM ROTARY ENGINE ASSEMBLER) WBC 9.73 4.00 - 10.80 x10'3/uL 07/03/2022 6:50 AM ROTARY ENGINE ASSEMBLER [facility] RBC 4.28 4.10 - 5.40 x10'6/uL 07/03/2022 6:50 AM [facility] HGB 12.9 12.0 - 16.0 G/DL 07/03/2022 6:50 AM [facility] HCT 40.5 36.0 - 47.0 % 07/03/2022 6:50 AM [facility] MCV 94.6 78.0 - 100.0 FL 07/03/2022 6:50 AM [facility] MCH 30.1 27.0 - 31.0 PG 07/03/2022 6:50 AM [facility] MCHC 31.9(L) 33.0 - 36.0 G/DL 07/03/2022 6:50 AM ROTARY ENGINE ASSEMBLER [facility] RDW 13.2 11.5 - 14.5 % 07/03/2022 6:50 AM [facility] PLT 281 150 - 350 x10'3/uL 07/03/2022 6:50 AM [facility] MPV 9.4 7.4 - 10.4 FL 07/03/2022 6:50 AM [facility] CBC COMMENT NORMAL REFERENCE RANGE NOT ESTABLISHED FOR THE PROPORTIONAL LEUKOCYTE DIFFERENTIAL. 07/03/2022 6:50 AM ROTARY ENGINE ASSEMBLER [facility] NEUTROPHILS % 72.7 % 07/03/2022 6:50 AM ROTARY ENGINE ASSEMBLER [facility] LYMPHOCYTES % 15.0 % 07/03/2022 6:50 AM ROTARY ENGINE ASSEMBLER [facility] MONOCYTES % 8.6 % 07/03/2022 6:50 AM ROTARY ENGINE ASSEMBLER [facility] EOSINOPHILS % 2.2 % 07/03/2022 6:50 AM ROTARY ENGINE ASSEMBLER [facility] BASOPHILS % 0.4 % 07/03/2022 6:50 AM ROTARY ENGINE ASSEMBLER [facility] IMMATURE GRANS % 1.1 % 07/03/20 6:50 AM ROTARY ENGINE ASSEMBLER [facility] NRBC 0.0 % 07/03/2022 6:50 AM ROTARY ENGINE ASSEMBLER [facility] ABS. NEUTROPHILS 7.07 1.60 - 8.30 x10'3/uL 07/03/2022 6:50 AM ROTARY ENGINE ASSEMBLER [facility] ABS. LYMPHOCYTES 1.46 0.80 - 4.70 x10'3/uL 07/03/2022 6:50 AM ROTARY ENGINE ASSEMBLER [facility] ABS. MONOCYTES 0.84 0.00 - 1.50 x10'3/uL 07/03/2022 6:50 AM ROTARY ENGINE ASSEMBLER [facility] ABS. EOSINOPHILS 0.21 0.00 - 0.40 x10'3/uL 07/03/2022 6:50 AM ROTARY ENGINE ASSEMBLER [facility] ABS. BASOPHILS 0.04 0.00 - 0.20 x10'3/uL 07/03/2022 6:50 AM ROTARY ENGINE ASSEMBLER [facility] ABS. IMMATURE GRANULOCYTES 0.11(H) 0.00 - 0.03 x10'3/uL 07/03/2022 6:50 AM ROTARY ENGINE ASSEMBLER [facility] ABS. NUCLEATED RBC'S 0.00 0.00 x10'3/uL 07/03/2022 6:50 AM [facility] 07/03/2022 6:42 AM ROTARY ENGINE ASSEMBLER us Marco Short CRNA LABORATORY Final Resu lt [facility] [address] [place] [address], * ECG 12 lead (07/03/2022 6:39 AM ROTARY ENGINE ASSEMBLER) 07/03/2022 6:39 AM ROTARY ENGINE ASSEMBLER Narrative [facility] [place] [facility] - 07/03/2022 4:19 PM ROTARY ENGINE ASSEMBLER ? [facility] ?[address] [place] ??[address] ? Test Date: ?2022-07-03 Pat Name: ? YOANDY SALINAS ? Department: ?? 3 ? Room: ? ORPOOL Gender: ? Female ? Ed Physicians: ?? : ?1940 ? Requested By: MARCO SHORT Order Number: [id number] ? Reading MD: ?? Jameson Mayer ? Measurements Intervals ?[place] ? Rate: ? 80 ? P: ?104 WI: ? 138 ?QRS: ?39 QRSD: ? 86 ? T: ?91 QT: ? 425 ? QTc: ?493 ? Interpretive Statements SINUS RHYTHM WITH OCCASIONAL VENTRICULAR PREMATURE COMPLEXES MINIMAL ST DEPRESSION RY ENGINE ASSEMBLER Procedure Note Jameson Mayer MD - 07/03/[address] [place] [address] Test Date: 2022-07-03 Pat Name: YOANDY SALINAS Department: 3 Room: [facility] Gender: Female Ed Physicians: : 1940 Requested By: MARCO SHORT Order Number: [id number] Rosie MD: Jameson Mayer Measurements Intervals [place] Rate: 80 P: 104 WI: 138 QRS: 39 QRSD: 86 T: 91 QT: 425 QTc: 493 Interpretive Statements SINUS RHYTHM WITH OCCASIONAL VENTRICULAR PREMATURE COMPLEXES MINIMAL ST DEPRESSION RY ENGINE ASSEMBLER us Marco Short OIL BURNER REPAIRER ECG ORDERABLES Final Resu lt [facility] documented in this encounter Visit Diagnoses Diagnosis Other closed fracture of distal end of right radius, initial encounter- Primary Other closed fracture of distal end of right radius, initial encounter documented in this encounter Admitting Diagnoses Diagnosis [...] 24 hours., Pre-Op Given 07/03/2022 6:46 AM ROTARY ENGINE ASSEMBLER 1,000 mg chlorhexidine (PERIDEX) 0.12 % solution 15 mL 15 mL, Mouth/Throat, PRN, Prior to surgery, 1 dose, Starting on Wed07/03/22 at 0620, Until Wed07/03/22 at 0645, Patient to perform oral care first. Swish/Gargle in mouth for 30 seconds, and then discard, prior to going to surgery/ If ventilated use saturated swab to clean oral cavity., Pre-Op Given 07/03/2022 6:45 AM ROTARY ENGINE ASSEMBLER 15 mLs lactated ringers infusion at 10 mL/hr, Intravenous, Continuous, Starting on Wed07/03/22 at 0645, Until Wed07/03/22 at 1218, Infuse at TKO rate, Pre-Op Restarted 07/03/2022 8:13 AM ROTARY ENGINE ASSEMBLER Continued by Anesthesia 07/03/2022 7:35 AM ROTARY ENGINE ASSEMBLER 10 mL/hr New Bag 07/03/2022 6:45 AM ROTARY ENGINE ASSEMBLER 10 mL/hr sodium chloride 0.9 % 1,000 mL with gentamicin 160 mg irrigation As needed, Starting on Wed07/03/22 at 0759, Until Wed07/03/22 at 0842, Intra-Op Given 07/03/2022 7:59 AM ROTARY ENGINE ASSEMBLER 400 mLs Operative Site documented in this encounter Active and Recently Administered Medications Times are shown in ROTARY ENGINE ASSEMBLER. Scheduled Medication Order 07/01/2022 07/02/2022 07/03/2022 acetaminophen (TYLENOL) tablet 1,000 mg (COMPLETED) 1,000 mg, Oral, Once, 1 dose, On Wed07/03/22 at 0645, Maximum dose of acetaminophen is 4000 mg from all sources in 24 hours., Pre-Op 0646 (Given - Provid er: Meet Batista RN) ceFAZolin (ANCEF) 2 g in NS 100 mL IVPB (COMPLETED) 2 g, Intravenous, at 200 mL/hr, call out operator, 1 dose, On Wed07/03/22 at 0645, Give [...] Intra-Op 0759 (Given - Provid er: Maximo Arshad MD) documented in this encounter Care Teams Marine Mechanic Relationship Specialty Start Date End Date Orlando Cortez MD [address] [place] [phone] PCP - General FAMILY PRACTICE 06/27/18 documented as of this encounter
--- OUTSIDE RECORDS SUMMARY | 2024-07-15 03:07 | XMS_ITS | Encounter Summary ---
Author Organization [facility] Address [address] [place] [address]. [place] [address] [place] [address] Care Team Providers Care Egg Smeller Name Role Phone Orlando Cortez MD Primary Care Provider [phone] Reason for Visit * Reason Comments Follow Up Lab Results Encounter Details Date Type Department Care Team (Late st Contact Info) Description 12/28/2019 11:40 AM CDT Office Visit [address] [place] [address] Shaw Connors MD Follow Up; Lab Results Social History Tobacco Use Types Packs/Day [...] Sign Reading Time Taken Comments Blood Pressure 135/90 12/28/2019 11:59 AM CDT Pulse 67 12/28/2019 11:59 AM CDT Temperature 36.1 ??C (97 ??F) 12/28/2019 11:59 AM CDT Respiratory Rate 18 12/28/2019 11:59 AM CDT Oxygen Saturation - - Inhaled Oxygen Concentration - - Weight 89 kg (196 lb 3.4 oz) 12/28/2019 11:59 AM CDT Height 177.8 cm (5' 10) 12/28/2019 11:59 AM CDT Body Mass Index 28.15 12/28/2019 11:59 AM CDT documented in this encounter Progress Notes * Shaw Connors MD - 12/28/2019 11:40 AM CDT Hematology/Oncology Note Identifying Data Ernestine Salinas is a 79-year-old female CC: Follow Up and Lab Results History of Present Illness: Ms. Salinas returns for follow-up for lucent lesion in the C7 vertebra. She was noted to have a lucent lesion in the C7 vertebra for which she underwent extensive work-up in the past. Bone scans 04/30/2017 and 10/29/2017 showed uptake in the pattern degenerative diseasewhile MRI cervical spine showed several punctate foci of increased T2 signal in the posterior elements of C7. Repeat imaging of spine continues to show degenerative changes only without discrete lesion or mass. SPEP/MILEY and urine MILEY showed no monoclonal protein. 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 She had several incidental findings on prior imaging including left adrenal myolipoma, left renal cys, right adnexal cyst for which she follows with [facility] and descending colon wall thickening for whichshe follows with GI. She returns for follow-up today. She is clinically stable except for chronic neck and back pain which varies in intensity. Most recent MRI of the cervical spine showed degenerative changes only. She denies fever or night sweats or unintentional weight loss. Oncology History: Cancer Staging No matching staging information was found for the patient. No history exists. Review of Systems: General: No symptoms Head: No symptoms Mouth and Throat: No Symptoms Neck: No Symptoms Respiratory: No symptoms Cardiac: No Symptoms Gastrointestinal: No symptoms Urinary: : No Symptoms Musculoskeletal: Right hip pain Neurologic: Oriented X3 Hematologic/Lymphatic: No symptoms Pertinent History: Past Medical [...] Drug use: No ??? Sexual activity: Never Lifestyle ??? Physical activity: Days per week: Not on file Minutes per session: Not on file ??? Stress: Not on file Relationships ??? Social connections: Talks on phone: Not on file Gets together: Not on file Attends tenriism service: Not on file Active member of [...] Right Current Outpatient Medications Medication Sig ??? aspirin 81 MG tablet Take 81 [...] Take 1 tablet by mouth daily. ??? [place]-3 Fatty Acids (FISH OIL PEARLS) 300 MG Cap ??? raloxifene (EVISTA) 60 MG tablet Take 1 tablet by mouth daily. ??? sertraline 50 MG tablet ??? TiZANidine HCl 4 MG Cap Take 4 mg by mouth. ??? traMADol 50 MG tablet ??? triamcinolone 0.1 % cream No Known Allergies Objective Vitals and ECOG Performance Status Height: 5' 10 (1.778 m) , Weight: 89 kg (196 lb 3.4 oz) , BSA (Calculated - sq m): 2.1 sq meters , BP: 135/90 , Temp: 97 ??F (36.1 ??C) , Pulse: 67 , Resp: 18 Physical Exam Constitutional General appearance: No acute distress, well appearing and well nourished. Head and Face Head and face: Normal. Eyes Conjunctiva and lids: No erythema, swelling or discharge. Pulmonary Respiratory effort: No increased work of breathing or signs of respiratory distress. Auscultation of lungs: Clear to auscultation. Cardiovascular Auscultation of heart: Normal rate and rhythm, normal S1 and S2, no murmurs. Abdomen Abdomen: Non-tender, no masses. Liver and spleen: No hepatomegaly or splenomegaly. Lymphatic Palpation of lymph nodes in neck: No lymphadenopathy. Neurological Orientation to person, place and time: Normal. Psychiatric Mood and affect: Normal. Laboratory None Imaging None Assessment and Plan Encounter Diagnose(s) ICD-10-CM ICD-9-CM 1. Bone lesion M89.9 733.90 2. Cervical pain M54.2 723.1 3. 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 ?? 1.Bone lesion: Likely benign -She had extensive workup :Bone scans(04/2017 and 10/2017)uptake in pattern s/of degenerative disease , MRI C spine-several punctate foci of increased T2 signal within the posterior elements of C7;CT CAP showed multiple vertebral hemangiomas;Repeat CT C spine 06/2018 showed degenerative changes only,no discrete lesion or mass -Prior SPEP/MILEY and Urine MILEY- No monoclonal protein;Mammogram(02/2017- [facility]-2)?? -Repeat MRI C'spine 07/2019 showed degenerative changes of spine -Overall, clinically and radiographically image findings are consistent with degenerative/benign changes with no convincing evidence of a malignancy ?? 2.Incidental findings on prior imaging: a)L adrenal lesion: 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) b)L renal lesion-indeterminate- [facility] kidney 01/2018 showed possible hemorrhagic cyst-radiology recommended CT A/P in 12 months c)R adnexal cyst-indeterminate- pelvic [facility] 01/2018 showed heterogenous enlarged ovary 4 cm -Follows with [facility] d)Descending colon wall thickening: Per patient, colonoscopy in 2015 showed polyps;Follows with Dr.Cochran CRUZ ? She remains clinically stable without any worsening symptoms that alarm/indicate further imaging work-up. I recommend that she follows with her primary care. Please refer back if any concerning findings Counseling:The patient was counseled regarding instructions for management, prognosis, patient and family education and impressions Time Spent: Approximately 20 minutes was spent in direct patient consultation and the majority of that time (>50%) was spent on counseling and coordination of care. SHAW CONNORS MD documented in this encounter Plan of Treatment Not on file documented as of this encounter Visit Diagnoses Diagnosis Bone lesion- Primary Disorder of bone and cartilage, unspecified Cervical pain Cervicalgia Spinal stenosis of cervical region Spinal stenosis in cervical region documented in this encounter Care Teams Egg Smeller Relationship Specialty Start Date End Date Orlando Cortez MD [address] [place] [phone] PCP - General FAMILY PRACTICE 06/27/18 documented as of this encounter
--- OUTSIDE RECORDS SUMMARY | 2024-07-15 03:07 | XMS_ITS | Encounter Summary ---
Author Organization [facility] Address [facility] [place] [address] [place] [address] Care Team Providers Care Creping Machine Operator Name Role Phone Orlando Cortez MD Primary Care Provider Encounter Details Date Type Department Care Team (Late st Contact Info) Description 01/23/2019 Orders Only [facility] [address] [place] [address] Akira Maldonado MD [address] [place] [phone] Social History Tobacco Use Types [...] on filedocumented in this encounter Care Teams Creping Machine Operator Relationship Specialty Start Date End Date Orlando Cortez MD [address] [place] [phone] PCP - General FAMILY PRACTICE 06/27/18 documented as of this encounter
--- OUTSIDE RECORDS SUMMARY | 2024-07-15 03:07 | XMS_ITS | Encounter Summary ---
Author Organization [facility] Address [facility] [place] [address] [place] [address] Care Team Providers Care Fire Management Specialist Name Role Phone Orlando Cortez MD Primary Care Provider Reason for Visit * Auth/Cert Specialty Diagnoses / Procedures Referred By Contac t Referred To Contact Diagnoses H/O TA Procedures COLONOSCOPY,DIAGNOSTIC COLONOSCOPY Referral ID Status Reason Start Date Expiration Date Visits Re quested Visits Authorized [id number] 1 1 Encounter Details Date Type Department Care Team (Late st Contact Info) Description 12/23/2021 7:56 AM CDT - 12/23/2021 10:36 AM T Hospital Encounter [facility] [address] [place] [address] Cricket Mercer MD [address] [place] [phone] Discharge Disposition: Home or Self Care (Routine [...] Sign Reading Time Taken Comments Blood Pressure 155/90 12/23/2021 10:21 AM CDT Pulse 55 12/23/2021 10:21 AM CDT Temperature 36.1 ??C (96.9 ??F) 12/23/2021 10:21 AM C DT Respiratory Rate 16 12/23/2021 10:21 AM CDT Oxygen Saturation 100% 12/23/2021 10:21 AM CDT Inhaled Oxygen Concentration - - Weight 88.5 kg (195 lb) 12/18/2021 12:49 PM CDT Height 177.8 cm (5' 10) 12/18/2021 12:49 PM CDT Body Mass Index 27.98 12/18/2021 12:49 PM CDT documented in this encounter Discharge Instructions * Attachments The following attachments cannot be sent through Care Everywhere. * Colonoscopy Discharge Instructions (Turkish) * Moderate Sedation in Adults Discharge Instructions (Turkish) * Colon Polypectomy Discharge Instructions (Turkish) * Diverticulosis Discharge Instructions (Turkish) * High Fiber Diet (Turkish) documented in this encounter Medications at Time [...] tablet Take 10 mg by mouth daily. Mammoth-3 Fatty Acids (FISH OIL PEARLS) 300 MG [...] * Pathology (12/23/2021 12:00 AM CDT) PATHOLOGY [facility] ? Department of Laboratory Medicine ?[address] ?[place] [address] ? , extension [phone] ? Pathology Report ? Surgical Pathology Report Name: YOANDY SALINAS ? Specimen #: [id number] Age: 4 1940 (Age: 81) ? Location: [facility] Sex: F ?Procedure Date: 12/23/2021 Hospital #: [id number] ?Date Received: 12/24/2021 Date Reported: 12/26/2021 Provider: [...] applicable), interpretation and sign-out were performed at [facility], [address] [place] [address], [place], [place], [address]. FINAL DIAGNOSIS: A) COLON, ASCENDING, POLYP, BIOPSY: ? - TUBULAR ADENOMA, TWO FRAGMENTS. ? - COLONIC MUCOSA WITH FOCAL DILATED CRYPTS, TWO FRAGMENTS. B) COLON, SIGMOID, POLYP, BIOPSY: ? - TUBULAR ADENOMA, ONE FRAGMENT. ? - HYPERPLASTIC POLYP, TWO FRAGMENTS. ?? Electronically Signed Out ? C. Rod Grove M.D. [facility] Tissue specimen (specimen) COLON STRUCTURE / Unknown 12/23/2021 9:34 AM CDT Tissue specimen (specimen) COLON STRUCTURE / Unknown 12/23/2021 9:46 AM CDT Cricket Mercer MD PATHOLOGY/CYTOLOGY ORDERABLES Final Result [facility] [address] [place] [address], [place] [phone] [id number] documented in this encounter Visit Diagnoses Not [...] RN) documented in this encounter Care Teams Fire Management Specialist Relationship Specialty Start Date End Date Orlando Cortez MD [address] [place], [place] [phone] PCP - General FAMILY PRACTICE 06/27/18 documented as of this encounter
--- OUTSIDE RECORDS SUMMARY | 2024-07-15 03:07 | XMS_ITS | Encounter Summary ---
Author Organization [facility] Address [facility] [place] [address] [place] [address] Care Team Providers Care Ice Cream Server Name Role Phone Orlando Cotrez MD Primary Care Provider [phone] Encounter Details Date Type Department Care Team (Latest Contact Info) Description 04/04/2020 Scan HEALTH INFO SRVCS Scanned, Documents Social History Tobacco Use Types Packs/Day Years [...] on filedocumented in this encounter Care Teams Ice Cream Server Relationship Specialty Start Date End Date Orlando Cortez MD [address] [place] [phone] PCP - General FAMILY PRACTICE 06/27/18 documented as of this encounter
--- OUTSIDE RECORDS SUMMARY | 2024-07-15 03:07 | XMS_ITS | Encounter Summary ---
Author Organization [facility] Address [facility] [place] [address] [place] [address] Care Team Providers Care Acid Tank Cleaner Name Role Phone Orlando Cortez MD Primary Care Provider [phone] Encounter Details Date Type Department Care Team (Latest Contact Info) Description 12/23/2021 Travel Social History Tobacco Use Types Packs/Day [...] on filedocumented in this encounter Care Teams Acid Tank Cleaner Relationship Specialty Start Date End Date Orlando Cortez MD [address] [place] [phone] PCP - General FAMILY PRACTICE 06/27/18 documented as of this encounter
--- OUTSIDE RECORDS SUMMARY | 2024-07-15 03:07 | XMS_ITS | Encounter Summary ---
Author Organization [facility] Address [facility] [address] [place] [address] Care Team Providers Care Physician Practice Administrator Name Role Phone Orlando Cortez MD Primary Care Provider [phone] Reason for Visit * Reason Onset Date Comments Medication Request 02/17/2021 Encounter Details Date Type Department Care Team (Late st Contact Info) Description 02/17/2021 Telephone [facility] [address] [address] Joselito Alexander MD [address] [place] [address] Medication Request Social History Tobacco [...] encounter Progress Notes * Marcella Francisco - 02/17/2021 2:21 PM CDT Shyanne at [facility] left vm requesting a refill on Gabapentin. Refill sent to pharmacy. documented in this encounter Plan of Treatment Not on file documented as of this encounter Visit Diagnoses Diagnosis Neuropathy Mononeuritis of unspecified site documented in this encounter Care Teams Physician Practice Administrator Relationship Specialty Start Date End Date Orlando Cortez MD [address] [place] [address] PCP - General FAMILY PRACTICE 06/27/18 documented as of this encounter
--- OUTSIDE RECORDS SUMMARY | 2024-07-15 03:08 | XMS_ITS | Encounter Summary ---
Author Organization [facility] Address [facility]. [place], [place] [address] [place] [address] Care Team Providers Care Die Attaching Machine Tender Name Role Phone Orlando Cortez MD Primary Care Provider [phone] Reason for Visit * Reason Comments Neuropathy * Consultation (Routine) - Closed Specialty Diagnoses / Procedures Referred By Contac t Referred To Contact NEUROLOGY Diagnoses Neuropathy Procedures NPV Orlando Cortez MD [address] [place] [address] Phone: tel: fax: [facility] [address] [phone] Phone: tel: fax: Referral ID Status Reason Start Date Expiration Date Visits Re quested Visits Authorized [id number] Closed 09/30/2018 10/01/2019 100 100 Encounter Details Date Type Department Care Team (Late st Contact Info) Description 10/27/2018 11:40 AM CDT Office Visit [facility] [address] [address] Joselito Alexander MD [address] [place] [address] Neuropathy Social History Tobacco Use Types Packs/Day Years [...] Sign Reading Time Taken Comments Blood Pressure 136/92 10/27/2018 11:23 AM CDT Pulse 77 10/27/2018 11:23 AM CDT Temperature - - Respiratory Rate - - Oxygen Saturation - - Inhaled Oxygen Concentration - - Weight 84.4 kg (186 lb) 10/27/2018 11:23 AM CDT Height 177.8 cm (5' 10) 10/27/2018 11:23 AM CDT Body Mass Index 26.69 10/27/2018 11:23 AM CDT documented in this encounter Progress Notes * Joselito Alexander MD - 10/27/2018 11:40 AM CDT Chief Complaint: Neuropathy. HPI: Ms. Salinas is a 67-year-old female who I see today for neuropathy. She has tingling paresthesia in both of her legs. It is a little worse on the left than the right. She wondered for quite sometime. There is a mild paresthesia. She has no numbness. She has no complaints in her hands. It is not painful. It does not keep her awake. She feels pretty good otherwise. Somebody down in [place] told her she had neuropathy. She takes duloxetine but does not know why. She is also on Aricept. She is not sure if she really needs this or not. She lives alone. She handles all of her finances, drives, cooks, cleans, etc. withno difficulty. Past Medical History: Diagnosis Date ??? Anxiety [...] Take 60 mg by mouth daily. ??? Misc Natural Products (OSTEO BI-FLEX TRIPLE STRENGTH) Tab Take 1 tablet by mouth daily. ??? Multiple Vitamins-Minerals (CENTRUM SILVER ULTRA WOMENS) Tab Take 1 tablet by mouth daily. ??? [place]-3 Fatty Acids (FISH OIL PEARLS) 300 MG Cap ??? raloxifene (EVISTA) 60 MG tablet Take 1 tablet by mouth daily. ??? traMADol 50 MG tablet 2 ??? Melatonin 10 MG Tab Take 1 tablet by mouth. ??? sertraline 50 MG tablet ??? TiZANidine HCl 4 MG Cap Take 4 mg by mouth. ??? triamcinolone 0.1 % cream No current facility-administered medications for this visit. Review of Systems Neurological: As noted in HPI. All other systems reviewed and are negative. Filed Vitals: 10/27/18 1123 BP: (!) 136/92 Pulse: 77 Weight: 84.4 kg (186 lb) Height: 5' 10 (1.778 m) Physical Exam Constitutional: She is oriented to person, place, and time. She appears well- developed and well-nourished. HENT: Head: Normocephalic. Mouth/Throat: Oropharynx is clear and moist. Eyes: EOM are normal. Pupils are equal, round, and reactive to light. Normal Fundoscopic Exam Neck: Normal range of motion. Neck supple. Cardiovascular: Normal rate, regular rhythm and normal heart sounds. Pulmonary/Chest: Effort normal and breath sounds normal. Abdominal: Soft. Bowel sounds are normal. Musculoskeletal: Normal range of motion. Neurological: She is oriented to person, place, and time. She has normal strength. She has a sfbpyhSjwzbs-Xwgp-Mzzgrs Test, a normal Heel to Ram Test [...] coordination: normal Heel to ram coordination: normal Reflexes: Her reflexes are slightly diminished distally.. Impression: 1. Mild idiopathic predominantly sensory neuropathy. It does seem to bother her much. 2. She has what sounds like a little anxiety and depression. 3. There has been some complaints of memory loss by other people but she is bright, awake and alerthere today. She is on Aricept. Plan: 1. She does not want to be on any medicine for this right now which I think it is fine. 2. We will see her back in about 6 months to make sure she is doing. 3. I do not think she needs a big workup for this right now as again it is a minimal complaint she tells me. 4. I do not think she needs to be on Aricept. I doubt that this is helping her much and she agrees.I told her to quit taking it and she notes that her memory is much worse off of it. She can always resume it later. We will see her in 6 months just to make sure she is doing okay. If she has any issues beforehand, she is to return to see us sooner. JOSELITO ALEXANDER MD documented in this encounter Plan of Treatment Not on file documented as of this encounter Visit Diagnoses Diagnosis Other polyneuropathy- Primary documented in this encounter Care Teams Die Attaching Machine Tender Relationship Specialty Start Date End Date Orlando Cortez MD [address] [place] [phone] PCP - General FAMILY PRACTICE 06/27/18 documented as of this encounter
--- OUTSIDE RECORDS SUMMARY | 2024-07-15 03:08 | XMS_ITS | Encounter Summary ---
Author Organization [facility] Address [address] [place] [address]. [place] [address] [place] [address] Care Team Providers Care Galley Stripper Name Role Phone Orlando Cortez MD Primary Care Provider [phone] Reason for Visit * Reason Comments Outside Record (SCAN) Patient Consultati on/Notes Encounter Details Date Type Department Care Team ([facility] st Contact Info) Description 08/17/2018 Scan HEALTH INFO SRVCS Scanned, Documents Outside Record (SCAN) (Patient Consultation/Notes) Social History Tobacco Use Types Packs/Day Years [...] on filedocumented in this encounter Care Teams Galley Stripper Relationship Specialty Start Date End Date Orlando Cortez MD [address] [place] [phone] PCP - General FAMILY PRACTICE 06/27/18 documented as of this encounter
--- OUTSIDE RECORDS SUMMARY | 2024-07-15 03:08 | XMS_ITS | Encounter Summary ---
Author Organization [facility] Address [address] [place] [address]. [place] [address] [place] [address] Care Team Providers Care Cut And Print Machine Operator Name Role Phone Orlando Cortez MD Primary Care Provider [phone] Encounter Details Date Type Department Care Team (Late st Contact Info) Description [address] [facility] [address] [place] [address] Orlando Cortez MD [address] [place] [phone] Social History Tobacco Use Types Packs/Day Years Used Date Smoking Tobacco: Never Assessed AUDIT-C Answer Date Recorded Frequency of Alcohol [...] as of this encounter Visit Diagnoses Diagnosis Abnormal findings on diagnostic imaging of other parts of musculoskeletal system documented in this encounter Care Teams Cut And Print Machine Operator Relationship Specialty Start Date End Date Orlando Cortez MD [address] [place] [phone] PCP - General FAMILY PRACTICE 06/27/18 documented as of this encounter
--- OUTSIDE RECORDS SUMMARY | 2024-07-15 03:08 | XMS_ITS | Encounter Summary ---
Author Organization [facility] Address [facility] [place] [address] [place] [address] Care Team Providers Care Environmental Engineering Technician Name Role Phone Orlando Cortez MD Primary Care Provider Encounter Details Date Type Department Care Team (Late st Contact Info) Description [facility]/06/2018 [facility] [address] [facility] [place] [address] Hero Shafer MD Social History Tobacco Use Types Packs/Day Years [...] as of this encounter Visit Diagnoses Diagnosis Disorder of bone Disorder of bone and cartilage, unspecified documented in this encounter Care Teams Environmental Engineering Technician Relationship Specialty Start Date End Date Orlando Cortez MD [address] [place] [phone] PCP - General FAMILY PRACTICE 06/27/18 documented as of this encounter
--- OUTSIDE RECORDS SUMMARY | 2024-07-15 03:08 | XMS_ITS | Encounter Summary ---
Author Organization [facility] Address [address] [place] [address]. [place] [address] [place] [address] Care Team Providers Care Pediatric Dental Hygienist Name Role Phone Orlando Cortez MD Primary Care Provider [phone] Reason for Visit * Reason Comments Outside Record (SCAN) Dr. [facility] Encounter Details Date Type Department Care Team ([facility] Contact Info) Description 10/27/2018 Scan HEALTH INFO SRVCS Scanned, Documents Outside Record (SCAN) (Dr. Alexander [facility]) Social History Tobacco Use Types Packs/Day Years [...] on filedocumented in this encounter Care Teams Pediatric Dental Hygienist Relationship Specialty Start Date End Date Orlando Cortez MD [address] [place] [phone] PCP - General FAMILY PRACTICE 06/27/18 documented as of this encounter
--- OUTSIDE RECORDS SUMMARY | 2024-07-15 03:08 | XMS_ITS | Encounter Summary ---
Author Organization [facility] Address [facility] [place] [address] [place] [address] Care Team Providers Care Cruller Maker Machine Name Role Phone Unavailable Primary Care Provider Unavailabl e Encounter Details Date Type Department Care Team (Latest Contact Info) Description 12/30/2017 Abstract [facility] Shaw Shafer MD Social History Tobacco Use Types Packs/Day Years Used Date Smoking Tobacco: Never Assessed Comments Unknown Sex and Gender Information Value Date Recorded Sex Assigned at Not on file Legal Sex Female 6:36 PM CDT Gender Identity Not on file Sexual Orientation Not on file documented as of this encounter Plan of Treatment Not on file documented as of this encounter Procedures Procedure Name Priority Date/Time Associated Diagnosis Comments CT ABD+PEL WWO CON Routine 12/30/2017 10 :24 AM CDT documented in this encounter Results * CT ABD+PEL WWO CON (12/30/2017 10:24 AM CDT) Anatomical Region Laterality Modality Abdomen Computed Tomogra phy 12/30/2017 10:2 4 AM CDT 12/30/2017 10:24 AM CDT Narrative 12/30/2017 4:06 PM CDT [facility] ?? [facility] ?? [place], [place] ? Patient Name: LAVON,YOANDY Date of : 1940 ?? [facility] Rec #: [id number] ??Age/Sex: 77/F ?Pt. Location: CT ?? Attending Provider: SHAW GLOVER MD ?? Ordering Provider: SHAW GLOVER MD ? Study Date Order Number Procedure ?? 12/30/17 [id number] CT Abdomen Pelvis WWO ? Signed ? EXAM: CTU ??ABDOMEN - PELVIS WITHOUT AND WITH CONTRAST ? INDICATION: Follow-up indeterminant previously reported colonic, left kidney, and left adrenal findings on CT study performed November 29, 2017. ? TECHNIQUE: Contiguous 3 mm axial slices were obtained of the abdomen and pelvis pre and uneventful post infusion of 95 cc of IV Isovue 370 with coronal and sagittal reformats according to CTU protocol. A dose lowering technique was utilized for this procedure which may include but is not limited to dose reduction techniques, automated exposure control, and/or the use of iterative reconstruction in accordance with ALARA principle. ? COMPARISON: CT abdomen pelvis 11/29/2017 ? FINDINGS: Redemonstrated multifocal areas of right diaphragmatic eventration. Some stable areas of bibasilar linear scarring and/or atelectasis. ? HOLLOW VISCERA-MESENTERY: ?? Distal esophagus/stomach: Suggestion of small stable hiatal hernia. Decompressed stomach. ? Bowel: Duodenum demonstrates normal course and caliber. Normal appendix. Mild to moderate colonic diverticulosis, worse in the sigmoid colon. Previously described distal descending colonic and proximal sigmoid colonic mural thickening persists and appears slightly worsened with segmental distribution now noted that persists on all image phases limited for review extending to the level of the proximal descending colon. There is some trace surrounding fat stranding at the descending colonic-sigmoid junction, similar to prior study. There is stable perirectal mural prominence of nonspecific fat stranding, similar to prior study. However no focal fluid to suggest acute inflammation or acute diverticulitis at this time. No bowel obstruction, pneumoperitoneum, or significant abdominal ascites. ? VASCULATURE:Tortuous aorta with some atherosclerotic plaque, similar to prior study. Focal mild to moderate stenosis redemonstrated at the origins of the renal arteries bilaterally, similar to prior study. No superimposed penetrating ulcer. No suspicious periaortic fluid collection or extravasated arterial contrast. The IVC and portal vein appear within normal limits. ? SOLID VISCERA-RETROPERITONEUM: ?? [id number]: The gallbladder is within normal limits. Redemonstrated lobulated hepatic contours. Few nonspecific splenic subcentimeter hypodensities on the venous phase, too small to characterize. ? Pancreas: Stable peripancreatic versus exophytic pancreas cystic lesion abutting anterior pancreatic body measuring in cross-section 2.5 x 3.2 cm with attenuation characteristics of simple fluid on all the imaged phases. No associated calcifications or suspicious nodular enhancement. There may be some internal septations versus artifact. No pancreatic duct dilatation. Stable areas of the pancreatic atrophy, focally worse in the head, uncinate, and neck. No. Pancreatic inflammatory changes. Mild CBD dilatation measuring up to 7 mm within normal limits for patient's age. ? Adrenals: Redemonstrated left adrenal mass measuring 2.3 x 1.6 mm in cross- section with macroscopic fat measuring -18 Hounsfield units on noncontrast imaging compatible with benign adrenal myelolipoma right adrenal gland appears stable and within normal limits. ? : Redemonstrated symmetric kidneys with some mild cortical scarring. The previously noted left inferior pole partially exophytic posteromedial hypodense nodule measuring 1.2 x 1.1 cm in cross- section demonstrates nonspecific attenuation pattern measuring approximately 14 HU on noncontrast, 32 on arterial phase, 19 HU on venous phase, 30 8HU on urographic phase. No fer enhancement. No suspicious associated calcifications. It is unclear whether this represents a complicated cyst, complex cyst, or subtle solid lesion. This however appears stable in size in the interval. ? Redemonstrated stable dominant right renal cortical lower pole cyst. No hydronephrosis or perinephric fluid collection. No calcified urolithiasis. The bladder is only partially distended on several of the submitted images. There is also obscuration of the bladder as well as additional pelvic structures from some streak artifact from right femoral arthroplasty hardware compromising evaluation of this region ? RESEARCH/PROGRAM DIRECTOR: Indeterminant right adnexal 4 x 3.5 cm cyst appears intraovarian and fairly stable in the interval. No significant pelvic free fluid. Uterus appears within normal limits and slightly retroflexed. ? SOFT TISSUES-OSSEOUS: Right femoral arthroplasty hardware in satisfactory position. Small fat- containing clustered umbilical and periumbilical hiatal hernia as. Osteopenia and degenerative changes, latter focally worse in the central lumbar spine. Stable grade 1 retrolisthesis L2 on L3 and grade 1 anterolisthesis L4 and L5 redemonstrated prominent left femoral subchondral cysts. Redemonstrated stable multilevel lower thoracic and lumbar spine vertebral hemangiomas. ? IMPRESSION: ?? 1. ??Stable size of left inferior renal indeterminant 1.2 cm nodule with indeterminant attenuation- enhancement characteristics. Differential includes complicated cyst, complex cyst, versus subtle solid nodule. Consider renal ultrasound to better characterize. ?? 2. ??Stable dominant simple right renal cortical cyst. ?? 3. ??Progressive worsening segmental descending colonic/sigmoid mural thickening with stable surrounding trace fat stranding. No signs of acute colitis. ??Underlying malignancy therefore is not excluded. Strongly consider direct visualization if not already performed in the interval. ?? 4. ??Stable indeterminant right adnexal potential ovarian 4 cm cyst, abnormal in a postmenopausal female. Recommend pelvic ultrasound to further exclude neoplasm. ?? 5. ??Stable pancreatic versus peripancreatic 3.2 cm cyst. Stable focal proximal pancreatic atrophy. ?? 6. ??Stable mild age expected CBD dilatation. ?? 7. 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 8. ??Numerous additional incidental, stable, and chronic appearing findings. ? Electronically Signed By: OSIEL TEE M.D. 12/30/17 1603 ? Dictated On: 12/30/17 1024 ?? Interpreted By: OSIEL TEE M.D. ?? Transcribed On: 12/30/17 1024 - INFCE ?? Procedure Note Marc Day MD - 05/05/[address] Patient Name: YOANDY SALINAS Date of : 1940 [facility] Rec #: [id number] Age/Sex: 77/F Pt. Location: CT Attending Provider: SHAW GLOVER MD Ordering Provider: SHAW GLOVER MD Study Date Order Number Procedure 12/30/17 [id number] CT Abdomen Pelvis WWO Signed EXAM: CTU ABDOMEN - PELVIS WITHOUT AND WITH CONTRAST INDICATION: Follow-up indeterminant previously reported colonic, leftkidney, and left adrenal findings on CT study performed November 29, 2017. TECHNIQUE: Contiguous 3 mm axial slices were obtained of the abdomen andpelvis pre and uneventful post infusion of 95 cc of IV Isovue 370 with coronal and sagittalreformats according to CTU protocol. A dose lowering technique was utilized for this procedure whichmay include but is not limited to dose reduction techniques, automated exposure control, and/orthe use of iterative reconstruction in accordance with ALARA principle. COMPARISON: CT abdomen pelvis 11/29/2017 FINDINGS: Redemonstrated multifocal areas of right diaphragmaticeventration. Some stable areas of bibasilar linear scarring and/or atelectasis. HOLLOW VISCERA-MESENTERY: Distal esophagus/stomach: Suggestion of small stable hiatal hernia.Decompressed stomach. Bowel: Duodenum demonstrates normal course and caliber. Normal appendix.Mild to moderate colonic diverticulosis, worse in the sigmoid colon. Previously described distaldescending colonic and proximal sigmoid colonic mural thickening persists and appears slightlyworsened with segmental distribution now noted that persists on all image phases limited forreview extending to the level of the proximal descending colon. There is some trace surrounding fatstranding at the descending colonic-sigmoid junction, similar to prior study. There is stableperirectal mural prominence of nonspecific fat stranding, similar to prior study. However no focal fluidto suggest acute inflammation or acute diverticulitis at this time. No bowel obstruction,pneumoperitoneum, or significant abdominal ascites. VASCULATURE:Tortuous aorta with some atherosclerotic plaque, similar toprior study. Focal mild to moderate stenosis redemonstrated at the origins of the renal arteriesbilaterally, similar to prior study. No superimposed penetrating ulcer. No suspicious periaortic fluidcollection or extravasated arterial contrast. The IVC and portal vein appear within normal limits. SOLID VISCERA-RETROPERITONEUM: [id number]: The gallbladder is within normal limits.Redemonstrated lobulated hepatic contours. Few nonspecific splenic subcentimeter hypodensities onthe venous phase, too small to characterize. Pancreas: Stable peripancreatic versus exophytic pancreas cystic lesionabutting anterior pancreatic body measuring in cross-section 2.5 x 3.2 cm with attenuationcharacteristics of simple fluid on all the imaged phases. No associated calcifications or suspiciousnodular enhancement. There may be some internal septations versus artifact. No pancreatic ductdilatation. Stable areas of the pancreatic atrophy, focally worse in the head, uncinate, and neck.No. Pancreatic inflammatory changes. Mild CBD dilatation measuring up to 7 mm withinnormal limits for patient's age. Adrenals: Redemonstrated left adrenal mass measuring 2.3 x 1.6 mm incross- section with macroscopic fat measuring -18 Hounsfield units on noncontrast imagingcompatible with benign adrenal myelolipoma right adrenal gland appears stable and within normallimits. : Redemonstrated symmetric kidneys with some mild cortical scarring.The previously noted left inferior pole partially exophytic posteromedial hypodense nodule measuring1.2 x 1.1 cm in cross- section demonstrates nonspecific attenuation pattern measuringapproximately 14 HU on noncontrast, 32 on arterial phase, 19 HU on venous phase, 30 8HU on urographic phase.No fer enhancement. No suspicious associated calcifications. It is unclear whether thisrepresents a complicated cyst, complex cyst, or subtle solid lesion. This however appears stable in sizein the interval. Redemonstrated stable dominant right renal cortical lower pole cyst. Nohydronephrosis or perinephric fluid collection. No calcified urolithiasis. The bladder isonly partially distended on several of the submitted images. There is also obscuration of the bladderas well as additional pelvic structures from some streak artifact from right femoralarthroplasty hardware compromising evaluation of this region RESEARCH/PROGRAM DIRECTOR: Indeterminant right adnexal 4 x 3.5 cm cyst appears intraovarian andfairly stable in the interval. No significant pelvic free fluid. Uterus appears within normallimits and slightly retroflexed. SOFT TISSUES-OSSEOUS: Right femoral arthroplasty hardware in satisfactoryposition. Small fat- containing clustered umbilical and periumbilical hiatal hernia as.Osteopenia and degenerative changes, latter focally worse in the central lumbar spine. Stable grade 1retrolisthesis L2 on L3 and grade 1 anterolisthesis L4 and L5 redemonstrated prominent leftfemoral subchondral cysts. Redemonstrated stable multilevel lower thoracic and lumbar spine vertebralhemangiomas. IMPRESSION: 1. Stable size of left inferior renal indeterminant 1.2 cm nodule withindeterminant attenuation- enhancement characteristics. Differential includes complicated cyst,complex cyst, versus subtle solid nodule. Consider renal ultrasound to better characterize. 2. Stable dominant simple right renal cortical cyst. 3. Progressive worsening segmental descending colonic/sigmoid muralthickening with stable surrounding trace fat stranding. No signs of acute colitis. Underlyingmalignancy therefore is not excluded. Strongly consider direct visualization if not already performedin the interval. 4. Stable indeterminant right adnexal potential ovarian 4 cm cyst,abnormal in a postmenopausal female. Recommend pelvic ultrasound to further exclude neoplasm. 5. Stable pancreatic versus peripancreatic 3.2 cm cyst. Stable focalproximal pancreatic atrophy. 6. Stable mild age expected CBD dilatation. 7. 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 Numerous additional incidental, stable, and chronic appearingfindings. Electronically Signed By: OSIEL TEE M.D. 12/30/17 1603 Dictated On: 12/30/17 1024 Interpreted By: OSIEL TEE M.D. Transcribed On: 12/30/17 1024 - INF[facility] us Shaw Shafer MD CT Zita l Result documented in this encounter Visit Diagnoses Not on filedocumented in this encounter
--- OUTSIDE RECORDS SUMMARY | 2024-07-15 03:08 | XMS_ITS | Encounter Summary ---
Author Organization [facility] Address [address] [place] [address]. [place], [place] [id number] [place] [id number] Care Team Providers Care Library Cataloging Technician Name Role Phone Unavailable Primary Care Provider Unavailabl e Encounter Details Date Type Department Care Team (Latest Contact Info) Description 10/27/2017 Abstract [facility] Medical [facility] Social History Tobacco Use Types Packs/Day Years [...]
--- OUTSIDE RECORDS SUMMARY | 2024-07-15 03:08 | XMS_ITS | Encounter Summary ---
Author Organization [facility] Address [facility] [place] [address] [place] [address] Care Team Providers Care Housing Management Officer Name Role Phone Orlando Cortez MD Primary Care Provider Encounter Details Date Type Department Care Team (Late st Contact Info) Description 12/02/[address] [place] [address] Hero Shafer MD Social History Tobacco Use [...] unspecified documented in this encounter Care Teams Housing Management Officer Relationship Specialty Start Date End Date Orlando Coretz MD [address] [place] [id number] PCP - General FAMILY PRACTICE 06/27/18 documented as of this encounter
--- OUTSIDE RECORDS SUMMARY | 2024-07-15 03:08 | XMS_ITS | Encounter Summary ---
Author Organization [facility] Address [facility] [place] [address] [place] [address] Care Team Providers Care Work Station Support Specialist Name Role Phone Orlando Cortez MD Primary Care Provider Reason for Referral * Surgical (Routine) - Closed Specialty Diagnoses / Procedures Referred By Contmurali t Referred To Contact NEUROSURGERY Diagnoses Cervical pain Spinal stenosis of cervical region [facility] On[facility] - [address] [address] Phone: tel: fax: [facility] - [address] [address] Phone: tel: fax: Referral ID Status Reason Start Date Expiration Date V isits Requested Visits Authorized [id number] Closed Specialty Services 06/30/2018 07/31/2019 1 1 E MECHANIC Reason for Visit * Reason Comments Follow Up Encounter Details Date Type Department Care Team (Late st Contact Info) Description 06/30/2018 11:40 AM STOVE MECHANIC Office Visit [facility] [address] [phone] Shaw Connors MD Follow Up Social History [...] Sign Reading Time Taken Comments Blood Pressure 142/81 06/30/2018 12:53 PM STOVE MECHANIC Pulse 64 06/30/2018 12:53 PM STOVE MECHANIC Temperature 36.7 ??C (98 ??F) 06/30/2018 12: 53 PM STOVE MECHANIC Respiratory Rate 18 06/30/2018 12:5 3 PM STOVE MECHANIC Oxygen Saturation - - Inhaled Oxygen Concentration - - Weight 80.6 kg (177 lb 12.8 oz) 018 12:53 PM STOVE MECHANIC Height 177.8 cm (5' 10) 06/30/2018 12: 53 PM STOVE MECHANIC Body Mass Index 25.51 06/30/2018 12:53 PM STOVE MECHANIC documented in this encounter Progress Notes * Shaw Connors MD - 06/30/2018 11:40 AM CST Hematology/Oncology Note Identifying Data Yoandy Salinas is a 77-year-old female CC: Follow Up History of Present Illness: Ms. Salinas returns for follow-up for history of lucent lesion in theC7 vertebra. Prior workup with MRI and CTs showed multiple vertebral hemangiomas. She had a repeat CT cervical spine 3 days ago that showed which showed degenerative changes in the C5, 6, 7 region. There was no discrete soft tissue mass or bony lesion noted. Patient continues to have neck pain which is sharp, radiates down the spine and worsens with movements. She follows with orthopedic surgery in [place] for this. She denied numbness or weakness in the upper or lower extremities. No sensory loss in the trunk. She denied bowel or bladder retention or incontinence. No fever or night sweats or weight loss reported. Oncology History: Cancer Staging No matching staging information was found for the patient. No history exists. Review of Systems: General: Fatigue Skin: No rash Head: No symptoms Nose/ Sinuses: No Symptoms Mouth and Throat: No Symptoms Neck: Neck pain Respiratory: No symptoms Cardiac: No Symptoms Gastrointestinal: No symptoms Urinary: : No Symptoms Musculoskeletal: Neck pain Neurologic: Oriented X3 Mental Status/ Psych: Anxious Hematologic/Lymphatic: No symptoms Pertinent History: No past medical history on file. Pertinent family history is not on file. Social History Socioeconomic History ??? Marital status: Spouse name: Not on file ??? Number of children: Not on file ??? Years of education: Not on file ??? Highest education level: Not on file Social Needs ??? Financial resource strain: Not on file ??? Food insecurity - worry: Not on file ??? Food insecurity - inability: Not on file ??? Transportation needs - medical: Not on file ??? Transportation needs - non-medical: Not on file Occupational History ??? Not on file Tobacco Use ??? Smoking status: Former Smoker ??? Smokeless tobacco: Never Used Substance and Sexual Activity ??? Alcohol use: No Frequency: Never ??? Drug use: No ??? Sexual activity: No Other Topics Concern ??? Not on file Social History Narrative ??? Not on file No past surgical history on file. Current Outpatient Medications Medication Sig ??? atorvastatin 40 MG tablet ??? donepezil (ARICEPT) 10 MG Tab Take 1 tablet by mouth daily. ??? Melatonin 10 MG Tab Take 1 tablet by mouth. ??? Misc Natural Products (OSTEO BI-FLEX TRIPLE STRENGTH) Tab Take 1 tablet by mouth daily. ??? Multiple Vitamins-Minerals (CENTRUM SILVER ULTRA WOMENS) Tab Take 1 tablet by mouth daily. ??? [place]-3 Fatty Acids (FISH OIL PEARLS) 300 MG Cap ??? raloxifene (EVISTA) 60 MG tablet Take 1 tablet by mouth daily. ??? sertraline 50 MG tablet ??? triamcinolone 0.1 % cream ??? aspirin 81 MG tablet Take 81 mg by mouth. ??? raloxifene 60 MG tablet Take 60 mg by mouth. ??? raloxifene 60 MG tablet ??? TiZANidine HCl 4 MG Cap Take 4 mg by mouth. ??? traMADol 50 MG tablet No Known Allergies Objective Vitals and ECOG Performance Status Height: 5' 10 (1.778 m) , Weight: 80.6 kg (177 lb 12.8 oz) , BSA (Calculated - sq m): 2 sq meters , BP: 142/81 , Temp: 98 ??F (36.7 ??C) , Pulse: 64 , Resp: 18 Physical Exam Constitutional General appearance: No acute distress, well appearing and well nourished. Head and Face Head and face: Normal. Ears, Nose, Mouth, and Throat Oropharynx: Normal [...] Orientation to person, place and time: Normal. Laboratory No results found for any previous visit. Tumor Markers: LDH Date Value Ref Range Status 11/25/2017 207 125 - 220 UNITS/L Final Imaging Reviewed Ct Cerv Spine Wo Con Result Date: 06/28/[address] Patient Name: YOANDY SALINAS Date of : 1940 Med Rec #: [id number] Age/Sex: 77/F Pt.Location: CT Attending Provider: SHAW CULLEN MD Ordering Provider: SHAW CULLEN MD Study Date Order Number Procedure 06/28/18 [id number] CT Cervical Spine WO 06/28/2018, 1024 hours. HISTORY: Possible C7 bone lesion. EXAM: Volumetric CT imaging of the cervical spine was performedwith images submitted for review in the axial, the coronal and the sagittal planes. A dose loweringtechnique was used for this procedure, which may include, but is not limited to, dose reduction technique, automated exposure control, the use of iterative reconstruction, and ALARA (As Low As Reasonably Achievable) / Image Gently techniques. Correlation to prior study 05/11/2018. FINDINGS: No evidence of cervical fracture or gross bone destruction. Reversal the normal cervical lordosis. Ankylosis or fusion of the C5 and C6 vertebral bodies. Facet arthritis and arthritis at the uncovertebral joints throughout the cervical spine. Slight bony narrowing of the right C4-C5 foramen. Minimal bony narrowing of the C5-C6 foramina bilaterally with posterior bony ridging from the vertebra at this level the spine slightly narrowing the spinal canal. Minimal bony ridging at the C6-C7 level posteriorly slightly flattening the anterior contour the thecal sac making the spinal canal close limits of normal in size. No paraspinal soft tissue mass. IMPRESSION: Reversal of the normal cervical lordosis. Degenerative spondyloarthropathy cervical spine. Ankylosis or fusion of the C5 and C6 vertebral bodies. Electronically Signed By: NARINDER PITTS MD 06/28/18 1340 Dictated On: 06/28/18 1331 Interpreted By: NARINDER PITTS MD Transcribed On: 06/28/18 1331 - INFCE Assessment and Plan Encounter Diagnose(s) ICD-10-CM ICD-9-CM 1. Cervical pain M54.2 723.1 AMB REFERRAL TO NEUROSURGERY 2. Spinal stenosis of cervical region M48.02 723.0 AMB REFERRAL TO NEUROSURGERY 3. Renal lesion N28.9 593.9 4. 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);She has refused a biopsy -Since she has worsening cervical pain with radiculopathy, will refer her to neurosurgery 2.Incidental findings on prior imaging: a)L adrenal lesion: 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) b)L renal lesion-indeterminate- [facility] kidney 01/2018 showed possible hemorrhagic cyst-radiology recommended CT A/P in 12 months c)R adnexal cyst-indeterminate- pelvic USG 01/2018 showed heterogenous enlarged ovary 4 cm -Follows with [facility] d)Descending colon wall thickening: Per patient, colonoscopy in 2016 showed polyps;Follows with Dr.Cochran [facility] 3.Cervical pain/radiculopathy: Persistent symptoms -CT as above -Will refer to neurosurgery RTC in 6 months with labs Counseling:The patient was counseled regarding CT findings,implications,instructions for management, prognosis, patient and family education and impressions Time Spent: Approximately 25 minutes was spent in direct patient consultation and the majority of that time (>50%) was spent on counseling and coordination of care. SHAW CONNORS MD E MECHANIC documented in this encounter Plan of Treatment Scheduled Referrals Name Type Priority Associated Diagnoses Orde r Schedule Ambulatory referral to Neurosurgery Referral Routine Cervical pain Spinal stenosis of cervical region Ordered: 06/30/2018 documented as of this encounter Visit Diagnoses Diagnosis Cervical pain- Primary Cervicalgia Spinal stenosis of cervical region Spinal stenosis in cervical region Renal lesion Unspecified disorder of kidney and ureter Bone lesion Disorder of bone and cartilage, unspecified documented in this encounter Care Teams Work Station Support Specialist Relationship Specialty Start Date End Date Orlando Cortez MD [address] [place] [phone] PCP - General FAMILY PRACTICE 06/27/18 documented as of this encounter
--- OUTSIDE RECORDS SUMMARY | 2024-07-15 03:08 | XMS_ITS | Encounter Summary ---
Author Organization [facility] Address [facility] [place] [address] [place] [address] Care Team Providers Care Motor Scooter Repairer Name Role Phone Orlando Cortez MD Primary Care Provider [phone] Reason for Visit * Reason Comments Referral (SCAN) Patient Refferal Req uest Encounter Details Date Type Department Care Team ([facility] st Contact Info) Description 09/30/2018 Scan HEALTH INFO SRVCS Scanned, Documents Referral (SCAN) (Patient Refferal Request) Social History Tobacco Use Types Packs/Day Years [...] on filedocumented in this encounter Care Teams Motor Scooter Repairer Relationship Specialty Start Date End Date Orlando Cortez MD [address] [place] [phone] PCP - General FAMILY PRACTICE 06/27/18 documented as of this encounter
--- OUTSIDE RECORDS SUMMARY | 2024-07-15 03:08 | XMS_ITS | Encounter Summary ---
Author Organization [facility] Address [address] [place] [address]. [place] [address] [place] [address] Care Team Providers Care Squash Centre Manager Name Role Phone Orlando Cortez MD Primary Care Provider Encounter Details Date Type Department Care Team (Late st Contact Info) Description 11/29/2017 Abstract [facility] [address] [facility] [place] [address] Hero Shafer MD Social History Tobacco Use [...] Procedure Name Priority Date/Time Associated Diagnosis Comments CREATININE Routine 11/29/2017 8:15 AM CDT documented in this encounter Results * CREATININE (11/29/2017 8:15 AM CDT) CREATININE S/P/B 0.73 0.57 - 1.11 MG/DL 11/29/2017 8:35 AM CDT [facility] EGFR NON-AFR. AMER. >60 >60 ML/MIN/1.7 3 M2 11/29/2017 8:35 AM CDT [facility] EGFR AFR. AMER. >60 >60 ML/MIN/1.7 3 M2 11/29/2017 8:35 AM CDT [facility] 11/29/2017 8:15 AM CDT 11/29/2017 8:18 AM CDT us Generic Conversion Md [facility] Final R esult [facility] [address] [place] [address], documented in this encounter Visit Diagnoses Diagnosis Spondylolisthesis of lumbar region Acquired spondylolisthesis documented in this encounter Care Teams Squash Centre Manager Relationship Specialty Start Date End Date Orlando Cortez MD [address] [place] [phone] PCP - General FAMILY PRACTICE 06/27/18 documented as of this encounter
--- OUTSIDE RECORDS SUMMARY | 2024-07-15 03:08 | XMS_ITS | Encounter Summary ---
Author Organization [facility] Address [address] [place] [address]. [place] [address] [place] [address] Care Team Providers Care Van Owner Operator Name Role Phone Orlando Cortez MD Primary Care Provider Encounter Details Date Type Department Care Team (Late st Contact Info) Description 11/26/2017 Abstract [facility] [address] [place] [address] Hero Shafer MD Social History Tobacco Use [...] Procedure Name Priority Date/Time Associated Diagnosis Comments IMMUNOFIXATION, URINE Routine 11/26/2017 8:00 AM CDT documented in this encounter Results * IMMUNOFIXATION, URINE (11/26/2017 8:00 AM CDT) IMMUNOFIXATION URINE SEE PATHOLOGIST'S INTERPRETATIONTHIS URINE IMMUNOTYPING WAS INTERPRETED BY 11/29/2017 11:[address] [facility] Comment:MALATHI STEARNS PROTEIN NOT DETECTED. 11/26/2017 8:00 AM CDT 11/26/2017 8:55 AM CDT us Generic Conversion Md [facility] URINE ORDERABLES Final Result [facility] [address] [place] [address], [id number] documented in this encounter Visit Diagnoses Diagnosis Disorder of bone Disorder of bone and cartilage, unspecified documented in this encounter Care Teams Van Owner Operator Relationship Specialty Start Date End Date Orlando Cortez MD [address] [place] [phone] PCP - General FAMILY PRACTICE 06/27/18 documented as of this encounter
--- OUTSIDE RECORDS SUMMARY | 2024-07-15 03:08 | XMS_ITS | Encounter Summary ---
Author Organization [facility] Address [facility] [place] [address] [place] [address] Care Team Providers Care Ribber Name Role Phone Unavailable Primary Care Provider Unavailabl e Encounter Details Date Type Department Care Team (Late st Contact Info) Description 12/02/2017 Abstract [facility] Oncology - [address] [phone] Shaw Shafer MD Social History Tobacco Use [...] Sign Reading Time Taken Comments Blood Pressure 134/76 12/02/2017 10:08 AM CDT Pulse 91 12/02/2017 10:08 AM CDT Temperature - - Respiratory Rate - - Oxygen Saturation - - Inhaled Oxygen Concentration - - Weight 85.2 kg (187 lb 13.3 oz) 018 10:08 AM CDT Height 177.8 cm (5' 10) 12/02/2017 10: 08 AM CDT Body Mass Index 26.95 12/02/2017 10:08 AM CDT documented in this encounter Progress Notes * Shaw Shafer MD - 12/02/2017 10:00 AM CDT Chief Complaint 77 year old female here for a follow up History of Present Illness HPI Free Text: returns for follow up and discussion of CT CAP result.It showed incidental L adrenal nodule 1.2 cm ,L renal lesion 9 mm, descending colon asymmetric wall thickening but nosuspicious masses.It also showed multiple vertebral hemangiomas,stable lytic lesion with surrounding sclerosis of C7. She does not have any new symptoms.She continues to have radicular pain in L neck and arm intermittently. Review of Systems Constitutional: Normal. ENT: normal. Cardiovascular: Normal. Respiratory: Normal. Gastrointestinal: Normal. Genitourinary: Normal. Integumentary: Normal. Musculoskeletal: arthralgias. Neurological: Normal. Psychiatric: Normal. Active Problems 1. Aftercare following hip joint replacement surgery (V54.81,V43.64) (Z47.1,Z96.649) 2. Arthritis of right acromioclavicular joint (716.91) (M19.011) 3. Bone lesion (733.90) (M89.9) 4. Cervical pain (723.1) (M54.2) 5. Cervical radiculopathy (723.4) (M54.12) 6. Chronic right hip pain (719.45,338.29) (M25.551,G89.29) 7. Chronic right shoulder pain (719.41,338.29) (M25.511,G89.29) 8. Hammer toe (735.4) (M20.40) 9. Incomplete tear of right rotator cuff (840.4) (M75.111) 10. Lumbar back pain (724.2) (M54.5) 11. Lumbar radiculopathy, chronic (724.4) (M54.16) 12. Memory change (780.93) (R41.3) 13. Nontraumatic complete tear of right rotator cuff (727.61) (M75.121) 14. Osteoarthritis of right glenohumeral joint (715.91) (M19.011) 15. Osteoarthritis of right hip (715.95) (M16.11) 16. Right elbow pain (719.42) (M25.521) 17. Right shoulder pain (719.41) (M25.511) 18. Rotator cuff arthropathy of left shoulder (716.81) (M12.812) 19. Rupture of right distal biceps tendon, subsequent encounter (V58.89,841.8) (S46.211D) 20. Shoulder pain, left (719.41) (M25.512) 21. Status post orthopedic surgery, follow-up exam (V67.09) (Z09) 22. Status post osteotomy (V45.89) (Z98.890) 23. Traumatic rupture of right distal biceps tendon, initial encounter (840.8) (S46.211A) 24. Ulnar nerve compression, right (354.2) (G56.21) Past Medical History ?? History of hypercholesterolemia (V12.29) (Z86.39) Surgical History ?? History of Hip Replacement Right ?? History of Knee Surgery Left ?? History of Knee Surgery Right Family History Family History ?? No pertinent family history Social History ?? Former smoker (V15.82) (Z87.891) ?? No alcohol use ?? Primary language is Burkinan ?? Retired Current Meds 1. Aricept 10 MG Oral Tablet; TAKE 1 TABLET DAILY DIRECTED; Therapy: 17Nov2017 to Recorded Dispense: 0 Days ; #: Sufficient Tablet; Refill: 0; For: Memory change; ROSA = N; Record; Last Updated By: Irina Romero; 11/17/2017 4:25:05 PM 2. Aricept 5 MG Oral Tablet; TAKE 1 TABLET AT BEDTIME; Therapy: 17Nov2017 to Recorded Dispense: 0 Days ; #: Sufficient Tablet; Refill: 0; For: Memory change; ROSA = N; Record; Last Updated By: Irina Romero; 11/17/2017 4:25:05 PM 3. Aspir-Low 81 MG Oral Tablet Delayed Release; TAKE 1 TABLET DAILY; Therapy: 17Nov2017 to Recorded Dispense: 0 Days ; #: Sufficient Tablet; Refill: 0; ROSA = N; Record; Last Updated By: Irina Romero; 11/17/2017 4:25:05 PM 4. Atorvastatin Calcium 40 MG Oral Tablet; Therapy: 02Dec2015 to Recorded Dispense: 90 Days ; #:90; Refill: 0; ROSA = N; Record; Last Updated By: Magali Barreto; 09/25/2016 11:32:40 AM 5. Centrum Silver Ultra Womens Oral Tablet; TAKE 1 TABLET DAILY; Therapy: 17Nov2017 to Recorded Dispense: 0 Days ; #: Sufficient Tablet; Refill: 0; ROSA = N; Record; Last Updated By: Irina Romero; 11/17/2017 4:25:05 PM 6. Diclofenac Sodium 50 MG Oral Tablet Delayed Release; Take 1 tablet twice daily; Therapy: 47Dpk7288 to (Evaluate:05May2017) Requested for: 42Lcr5123; Last Rx:[id number] Ordered Rx By: Magali Barreto; Dispense: 30 Days ; #:60 Tablet Delayed Release; Refill: 0; For: Aftercare following hip joint replacement surgery; ROSA = N; Verified Transmission to [facility]; Msg to Pharmacy: further refills needed through PCP; Last Updated By: Jacquelyn Gardner; 04/05/2017 2:39:36 PM 7. Fish Oil Pearls 300 MG Oral Capsule; TAKE DIRECTED; Therapy: 17Nov2017 to Recorded Dispense: 0 Days ; #: Sufficient Capsule; Refill: 0; ROSA = N; Record; Last Updated By: Irina Romero;11/17/2017 4:25:05 PM 8. Hydrocodone-Acetaminophen 7.5-325 MG Oral Tablet; 1- 2 Q 4 - 6 HRS PRN PAIN; Therapy: 96Dzb2829 to (Last Rx:[id number]) Ordered Rx By: Maximo Lara; Dispense: 0 Days ; #:40 Tablet; Refill: 0; For: Aftercare following hip joint replacement surgery; ROSA = N; Print Rx 9. Melatonin 10 MG Oral Tablet; TAKE 1 TABLET Bedtime; Therapy: 17Nov2017 to Recorded Dispense: 0 Days ; #: Sufficient Tablet; Refill: 0; ROSA = N; Record; Last Updated By: Irina Romero; 11/17/2017 4:25:05 PM 10. Osteo Bi-Flex Triple Strength Oral Tablet; TAKE 1 TABLET DAILY DIRECTED; Therapy: 17Nov2017 to Recorded Dispense: 0 Days ; #: Sufficient Tablet; Refill: 0; For: Cervical pain; ROSA = N; Record; Last Updated By: Irina Romero; 11/17/2017 4:25:05 PM 11. Sertraline HCl - 50 MG Oral Tablet; Therapy: 10Aug2016 to Recorded Dispense: 30 Days ; #:30; Refill: 0; ROSA = N; Record; Last Updated By: Magali Barreto; 09/25/2016 11:32:40 AM 12. TraMADol HCl - 50 MG Oral Tablet; one or two tabs by mouth four times a day as needed; Therapy: 17Nov2017 to Recorded Dispense: 0 Days ; #: Sufficient Tablet; Refill: 0; For: Cervical radiculopathy; ROSA = N; Record; Last Updated By: Irina Romero; 11/17/2017 4:25:05 PM 13. Triamcinolone Acetonide 0.1 % External Cream; Therapy: 24Dec2016 to Recorded Dispense: 30 Days ; #:80; Refill: 0; ROSA = N; Record; Last Updated By: Magali Barreto; 02/23/2017 12:26:12 PM Vitals Recorded: 02Dec2017 10:08AM Temperature 97.1 F Heart Rate 91 Respiration 18 Systolic 134 Diastolic 76 Height 5 ft 10 in Weight 187 lb 13.30 oz BMI Calculated 26.95 BSA Calculated 2.03 Pain Scale 0 Physical Exam Constitutional General appearance: No acute distress, well appearing and well nourished. Eyes Conjunctiva and lids: No swelling, erythema or discharge. Ears, Nose, Mouth, and Throat Oropharynx: Normal with no erythema, edema, exudate or lesions. Pulmonary Respiratory effort: No increased work of breathing or signs of respiratory distress. Auscultation of lungs: Clear to auscultation. Cardiovascular Auscultation of heart: Normal rate and rhythm, normal S1 and S2, without murmurs. Abdomen Abdomen: Non-tender, no masses. Liver and spleen: No hepatomegaly or splenomegaly. Lymphatic Palpation of lymph nodes in neck: No lymphadenopathy. Musculoskeletal Gait and station: Normal. Psychiatric Orientation to person, place, and time: Normal. Mood and affect: Normal. Results/Data CT Chest W Abd Pel W+ 29Nov2017 12:59PM Shaw Shafer Test Name Result Flag Reference CT Chest W Abd Pel W+ (Report) [address] Patient Name: YOANDY SALINAS Date of : 1940 Med Rec #: [id number] Age/Sex: 77/F Pt. Location: CT Attending Provider: SHAW GLOVER MD Ordering Provider: SHAW GLOVER MD Study Date Order Number Procedure 11/29/17 [id number] CT Chest W Abd Pel W+ Signed EXAMINATION: CT Chest, Abdomen and Pelvis with contrast CLINICAL HISTORY: Disorder of bone, unspecified. Neck pain. Lower back pain. COMPARISON: MRI cervical spine on 2017. Nuclear medicine bone scan on 11/09/2017 and 04/21/2017 which is more consistent with degenerative pattern rather than metastasis. TECHNIQUE: Computed tomography of the chest, abdomen, and pelvis was performed after the administration of 89 mL Isovue-370 contrast according to routine protocol without immediate complication. A dose lowering technique was used for this procedure, which may include, but is not limited to, dose reduction technique, automated exposure control, the use of iterative reconstruction, and ALARA (As Low As Reasonably Achievable) / Image Gently techniques. FINDINGS: CHEST: Airway is intact. No pneumothorax. No pleural effusion. No suspicious lung mass or consolidation. No large pericardial effusion. Tortuous thoracic aorta without aneurysm or stenosis. Pulmonary artery is normal caliber. Subcentimeter thyroid nodules. Subcentimeter mediastinal and hilar lymph nodes. Small hiatal hernia. Indeterminate cystic lesion anterior/region of left subscapularis muscle (image 18, series 910). No axillary lymphadenopathy. ABDOMEN/PELVIS: The liver, spleen, pancreas, and gallbladder are normal. Approximately 1.2 cm left adrenal nodule. Nonspecific right adrenal gland thickening. Kidneys enhance symmetrically and promptly. Probable cyst, right kidney. Nonwater density low-attenuation lesion in the posterior aspect of lower pole of left kidney measuring up to 9 mm (image 131, series 910). Atherosclerotic abdominal aorta without aneurysm. Asymmetric wall thickening of the distal descending colon measuring up to 1.3 cm (image 165, series 910). Appendix is normal. Subcentimeter mesenteric lymph nodes. No retroperitoneal lymphadenopathy. Uterus and left ovary identified. Enlargement of right ovary of up to 3.9 cm with heterogeneous density. No free pelvic fluid. Pelvic vascular arterial calcifications. No inguinal or pelvic lymphadenopathy. BONES: 6 mm lytic lesion with sclerotic margins in the spinous process of C7 and left pedicle. Right hip prosthesis. Osteoarthritis, left hip. Decreased bone mineralization. Multiple vertebral body hemangiomas. Grade 1 spondylolisthesis, L4-L5. IMPRESSION: 1. Indeterminate asymmetric wall thickening, distal descending colon. Cannot exclude colon cancer. Consider further evaluation with direct visualization/colonoscopy.2. Indeterminate non-water density lesion, lower pole left kidney. Recommend CT abdomen with and without contrast according to renal mass protocol. 3. Heterogeneously enlarged right ovary. Consider pelvic sonogram. 4. Indeterminate 1.2 cm left adrenal nodule. Recommend CT/MRI adrenal protocol. 5. Most likely benign lesion in the C7 cervical spine, with nonaggressive sclerotic margins. Unlikely multiple myeloma. Less likely metastasis. Consider follow-up to document stability. However , if a primary neoplasm is discovered and if needed for staging, may consider PET/CT or tissue. Electronically Signed By: LESLI WEST M.D 11/29/17 1403 Dictated On: 11/29/17 1259 Interpreted By: LESLI WEST M.D Transcribed On: 11/29/17 1259 - INFJHOAN Urine Immunofixation Prof 26Nov2017 08:00AM Shaw Shafer Test Name Result Flag Reference Urine Immunofixation SEE PATHOLOGIST'S INTERPRETATION Urine Immunofixation Interp THIS URINE IMMUNOTYPING WAS INTERPRETED BY DR ZAHIDA DURANT MD BENCE MCNEAL PROTEIN NOT DETECTED. PERFORMED AT [facility], [address] [place] [phone]. [phone] Lactate Dehydrogenase ( LDH ) 25Nov2017 12:35PM Shaw Shafer Test Name Result Flag Reference Lactate Dehydrogenase (LDH) 207 UNITS/L 125-220 Protein Electrophoresis Prof 25Nov2017 12:35PM Shaw Shafer Test Name Result Flag Reference Albumin 3.9 G/DL 3.4-4.9 Ixuwc-4-Zeyymqokt 0.3 G/DL 0.2-0.4 Auunm-8-Rwpgpiqze 0.8 G/DL 0.4-1.0 Beta Globulins 0.7 G/DL 0.5-1.2 Gamma Globulins 0.5 G/DL L 0.6-1.6 Total Protein 6.2 G/DL 6.0-8.3 Protein Electrophoresis Interp (Report) THIS SERUM PEP WAS INTERPRETED BY DR ZAHIDA DURANT MD HYPOGAMMAGLOBULINEMIA IS PRESENT. RECOMMEND CORRELATION WITH SERUM FREE LIGHT CHAINS TO EXCLUDE LIGHT CHAIN DISEASE. PERFORMED AT [facility], [address], [place] [address]. [phone] Immunofixation Prof [id number] 12:35PM Shaw Shafer Test Name Result Flag Reference Immunofixation SEE PATHOLOGIST'S INTERPRETATION Immunofixation Interpretation THIS SERUM IMMUNOTYPING WAS INTERPRETED BY DR ZAHIDA DURANT MD MONOCLONAL PROTEIN NOT IDENTIFIED PERFORMED AT [facility], [address], [place] [address]. [phone] Counseling Counseling Documentation: The patient and patient's family was counseled regarding diagnostic results, instructions for management, patient and family education, impressions and Discussed CT result,my impressions, need for colonoscopy, additional CT.. total time of encounter was 25 minutes and 15 mi nutes was spent counseling. Assessment 1. Cervical radiculopathy (723.4) (M54.12) 2. Bone lesion (733.90) (M89.9) 3. Lesion of adrenal gland (255.9) (E27.9) 4. Renal lesion (593.9) (N28.9) 5. Colon wall thickening (569.89) (K63.9) Plan 77 yo ww with DJD has MRI abnormality of cervical vertebra(C7) 1.Bone lesion: Seen on bone scans(04/2017 and 10/2017), MRI C spine-several punctate foci of increased T2 signal within the posterior elements of C7 -Bone scan- uptake in pattern s/of degenerative disease and stable(cannot r/o malignant process) -CT CAP showed multiple vertebral hemangiomas -SPEP.MILEY and Urine MILEY- No monoclonal protein- sFLC is pending -The C7 lesion is likely benign(sclerosed hemangioma) but cannot rule out malignancy unless a biopsy is performed -Discussed above possibility with patient; she wants to wait for now -CT CAP showed no suspicious mass lesions(except incidental L adrenal and renal lesions) -Clinically has cervical pain with radiculopathy over last 6 months -No B symptoms -Mammogram(02/2017- BIRADS-2) 2.L adrenal and renal lesions: Incidental findings on CT CAP -Indeterminate and radiology recommending CT adrenal protocol -Will get one in 4 weeks 3.Descending colon wall thickening: Per patient, colonoscopy in 2016 showed polyps -Will refer for repeat colonoscopy due to above findings 4.Cervical pain/radiculopathy: Managed by RTC in 5 week with labs and CT Signatures Electronically signed by : Shaw Shafer M.D.; Dec 02 2017 10:46AM PROJECT COORDINATOR RN (Author) documented in this encounter Plan of Treatment Not on file documented as of this encounter Procedures Procedure Name Priority Date/Time Associated Diagnosis Comments CBC W/DIFF AUTOMATED Routine 01/06/2018 11:25 AM CDT documented in this encounter Results * (ABNORMAL) CBC W/DIFF AUTOMATED (01/06/2018 11:25 AM CDT) WBC 5.1 4.5 - 10.8 x10'3/uL [facility] TO EPIC CONVERSION RBC 4.60 4.10 - 5.40 x10'6/uL [facility] TO EPIC CONVERSION HGB 13.6 12.0 - 16.0 G/DL [facility] TO EPIC CONVERSION HCT 43.0 36.0 - 47.0 % [facility] TO EPIC CONVERSION MCV 93.5 78.0 - 100.0 FL [facility] TO EPIC CONVERSION MCH 29.6 27.0 - 31.0 PG [facility] TO EPIC CONVERSION MCHC 31.6(L) 33.0 - 36.0 G/DL [facility] TO EPIC CONVERSION RDW 13.2 11.5 - 14.5 % [facility] TO EPIC CONVERSION PLT 180 150 - 350 x10'3/uL [facility] TO EPIC CONVERSION MPV 10.8(H) 7.4 - 10.4 FL [facility] TO EPIC CONVERSION SEG NEUTROPHILS 57.1 % [facility] ROUP TO EPIC CONVERSION ABS. NEUTROPHILS 2.91 1.60 - 8.30 x10'3/uL [facility] TO EPIC CONVERSION LYMPHOCYTES 28.6 % [facility] TO EPIC CONVERSION ABS. LYMPHOCYTES 1.46 0.80 - 4.70 x10'3/uL [facility] TO EPIC CONVERSION MONOCYTES 10.8 % [facility] T O EPIC CONVERSION ABS. MONOCYTES 0.55 0.00 - 1.50 x10'3/uL [facility] TO EPIC CONVERSION EOSINOPHILS 2.5 % [facility] TO EPIC CONVERSION ABS. EOSINOPHILS 0.13 0.00 - 0.40 x10'3/uL [facility] TO EPIC CONVERSION BASOPHILS 0.8 % [facility] T O EPIC CONVERSION IMMATURE GRANS % 0.2 % [facility] TO EPIC CONVERSION ABS. NUCLEATED RBC'S 0.00 0.00 x10'3/uL [facility] TO EPIC CONVERSION ABS. BASOPHILS 0.04 0.00 - 0.20 x10'3/uL [facility] TO EPIC CONVERSION ABS. IMMATURE GRANULOCYTES 0.01 0.00 - 0.03 x10'3/uL [facility] TO EPIC CONVERSION NRBC 0.0 % [facility] T O EPIC CONVERSION 01/06/2018 11:2 5 AM CDT 01/06/2018 11:25 AM CDT Narrative [facility] TO EPIC CONVERSION - 01/06/2018 11:33 AM CDT Result Communication: No patient communication needed at this time us Shaw Shafer MD LABORATORY Zita l Result [facility] TO EPIC CONVERSION documented in this encounter Visit Diagnoses Not on filedocumented in this encounter
--- OUTSIDE RECORDS SUMMARY | 2024-07-15 03:08 | XMS_ITS | Encounter Summary ---
Author Organization [facility] Address [facility] [place] [address] [place] [address] Care Team Providers Care Slide Developer Name Role Phone Unavailable Primary Care Provider Unavailabl e Encounter Details Date Type Department Care Team (Late st Contact Info) Description 11/08/2017 Abstract [facility] [address] [place] [id number] Magali Barreto FNP-BC [address] [facility] [place] [address] Social History Tobacco Use Types Packs/Day Years Used Date Smoking Tobacco: Never Assessed Comments Unknown Sex and Gender Information Value Date Recorded Sex Assigned at Not on file Legal Sex Female 6:36 PM CDT Gender Identity Not on file Sexual Orientation Not on file documented as of this encounter Progress Notes * RADHA Hurtado - 11/08/2017 2:30 PM CDT Referred By / Reason Patient was referred by Primary Care Physician Name: Dr. Cortez Reason: Chief Complaint Chief Complaint: The patient presents to the office today with LEFT shoulder pain. History of Present Illness HPI: Patient returns to clinic today in follow up for her LEFT shoulder. She is RIGHT handed. She denies any injury. She reports she has painful range of motion with activity. She also has pain at night that keeps her awake. She states she did 9 weeks of physical therapy and saw no improvement in her symptoms. Review of Systems See HPI for pertinent positives. Active Problems 1. Aftercare following hip joint replacement surgery (V54.81,V43.64) (Z47.1,Z96.649) 2. Arthritis of right acromioclavicular joint (716.91) (M19.011) 3. Cervical pain (723.1) (M54.2) 4. Cervical radiculopathy (723.4) (M54.12) 5. Chronic right hip pain (719.45,338.29) (M25.551,G89.29) 6. Chronic right shoulder pain (719.41,338.29) (M25.511,G89.29) 7. Hammer toe (735.4) (M20.40) 8. Incomplete tear of right rotator cuff (840.4) (M75.111) 9. Lumbar back pain (724.2) (M54.5) 10. Lumbar radiculopathy, chronic (724.4) (M54.16) 11. Nontraumatic complete tear of right rotator cuff (727.61) (M75.121) 12. Osteoarthritis of right glenohumeral joint (715.91) (M19.011) 13. Osteoarthritis of right hip (715.95) (M16.11) 14. Right elbow pain (719.42) (M25.521) 15. Right shoulder pain (719.41) (M25.511) 16. Rotator cuff arthropathy of left shoulder (716.81) (M12.812) 17. Rupture of right distal biceps tendon, subsequent encounter (V58.89,841.8) (S46.211D) 18. Shoulder pain, left (719.41) (M25.512) 19. Status post orthopedic surgery, follow-up exam (V67.09) (Z09) 20. Status post osteotomy (V45.89) (Z98.890) 21. Traumatic rupture of right distal biceps tendon, initial encounter (840.8) (S46.211A) 22. Ulnar nerve compression, right (354.2) (G56.21) Past Medical History 1. History of hypercholesterolemia (V12.29) (Z86.39) Surgical History 1. History of Hip Replacement Right 2. History of Knee Surgery Left 3. History of Knee Surgery Right Family History Family History 1. No pertinent family history Social History ?? Former smoker (V15.82) (Z87.891) ?? No alcohol use ?? Primary language is South [place] ?? Retired Current Meds 1. Atorvastatin Calcium 10 MG Oral Tablet; Therapy: (Recorded:58Fhp0996) to Recorded 2. Atorvastatin Calcium 40 MG Oral Tablet; Therapy: 34Tgv8655 to Recorded 3. Azithromycin 250 MG Oral Tablet; Therapy: 18May2016 to Recorded 4. Diclofenac Sodium 50 MG Oral Tablet Delayed Release; Take 1 tablet twice daily; Therapy: 80Kdv9534 to (Evaluate:05May2017) Requested for: 57Wfd7809; Last Rx:[id number] Ordered 5. Gabapentin CAPS; Therapy: (Recorded:13Sxt7877) to Recorded 6. Hibiclens 4 % External Liquid; Use as directed both the night before and morning of surgery; Therapy: 58Ogp5559 to (Last Rx:[id number]) Ordered 7. Hydrocodone-Acetaminophen 7.5-325 MG Oral Tablet ([place]); 1- 2 Q 4 - 6 HRS PRN PAIN; Therapy: 02Qrz5326 to (Last Rx:[id number]) Ordered 8. Hydrocodone-Acetaminophen 7.5-325 MG Oral Tablet ([place]); TAKE 1 TABLET EVERY 6 HOURS NEEDED FOR PAIN; Therapy: 49Csq1657 to (Evaluate:96Ojh5278); Last Rx:[id number] Ordered 9. Ibuprofen 600 MG Oral Tablet; Therapy: 11May2016 to Recorded 10. Ondansetron HCl - 8 MG Oral Tablet; 1 tablet PO Q 4-6 hours PRN for Nausea; Therapy: 06Cqk8693 to (Last Rx:[id number]) Ordered 11. PEG-3350/Electrolytes 236 GM Oral Solution Reconstituted; Therapy: 65Vsa7674 to Recorded 12. Raloxifene HCl - 60 MG Oral Tablet; Therapy: 39Drb8041 to Recorded 13. Sertraline HCl - 50 MG Oral Tablet; Therapy: 10Aug2016 to Recorded 14. Triamcinolone Acetonide 0.1 % External Cream; Therapy: 24Dec2016 to Recorded Physical Exam Constitutional: alert and in no acute distress. Neurological:. the patient was oriented to person, place, and time. . mood and affect were appropriate.. Eyes: pupils were equal in size, round, reactive to light, with normal accommodation. ENT: hearing was normal. Pulmonary: no respiratory distress. Skin: no injuries or skin lesions on the left upper extremity. Left Shoulder: EXAM today reveals FF 110, Abduction limited, IR posterior pocket, ER limited, crepitus, cuff strength good, cuff pain with resistance, positive Speeds, positive Gama, anterior painmildly positive Results/Data XRAYS today reveals no acute bony injury minimal AC joint osteoarthritis, moderate glenohumeral osteoarthritis with slight high riding type II acromion Findings: Procedure Procedure: Injection of the left subacromial space. Indication: cuff tear arthropathy. Were discussed with the patient. Verbal consent [...] procedure well. Complications: there were no complications. Assessment 1. Rotator cuff arthropathy of left shoulder (716.81) (M12.812) Plan Rotator cuff arthropathy of left shoulder 1. Physical Therapy Referral Outpatient LEFT rotator cuff arthropathy 3 times a week for 4 weeks Status: Need Information - Financial Authorization Requested for: 08Nov2017 2. Continue with our present treatment plan.; Status:Complete; Done: 08Nov2017 03:29PM Shoulder pain, left 3. XR Shoulder 1 View Lt; Status:Active; Requested for:08Nov2017; Dr. Cortez has gerald scheduled for a bone scan tomorrow. She'll continue to do home exercise program.She'll return in 2 weeks. Signatures Electronically signed by : JERRY Zapata; Nov 08 2017 3:29PM PASSPORT SUPPORT ASSOCIATE (Author) documented in this encounter Plan of Treatment Not on file documented as of this encounter Visit Diagnoses Not on filedocumented in this encounter
--- OUTSIDE RECORDS SUMMARY | 2024-07-15 03:08 | XMS_ITS | Encounter Summary ---
Author Organization [facility] Address [address] [place] [address]. [place] [address] [place] [address] Care Team Providers Care Fruit And Vegetable Parer Name Role Phone Orlando Cortez MD Primary Care Provider [phone]- [phone] Encounter Details Date Type Department Care Team (Late st Contact Info) Description 05/11/2018 [facility] [address] [place] [address] Francisco Valentine MD [address] [place] [phone] Social History Tobacco Use Types Packs/Day [...] as of this encounter Visit Diagnoses Diagnosis Cervicalgia documented in this encounter Care Teams Fruit And Vegetable Parer Relationship Specialty Start Date End Date Orlando Cortez MD [address] [place] [phone] PCP - General FAMILY PRACTICE 06/27/18 documented as of this encounter
--- OUTSIDE RECORDS SUMMARY | 2024-07-15 03:08 | XMS_ITS | Encounter Summary ---
Author Organization [facility] Address [facility]6 [facility] [place] [address] [place] [address] Care Team Providers Care Busgirl Name Role Phone Orlando Cortez MD Primary Care Provider [phone] Encounter Details Date Type Department Care Team (Late st Contact Info) Description 06/28/2018 Orders Only [facility] Priority Care - [address] [place] [address] Hero Shafer MD Social History Tobacco Use [...] Name Priority Date/Time Associated Diagnosis Comments CT CERV SPINE WO CON 06/28/2018 10:23 AM COUTIERIER documented in this encounter Results * CT CERV SPINE WO CON (06/28/2018 10:23 AM COUTIERIER) Anatomical Region Laterality Modality Spine Computed Tomogra phy 06/28/2018 10:2 3 AM COUTIERIER us Hero Shafer MD CT Edit ed Result - Final documented in this encounter Visit Diagnoses Not on filedocumented in this encounter Care Teams Busgirl Relationship Specialty Start Date End Date Orlando Cortez MD [address] [place] [address] PCP - General FAMILY PRACTICE 06/27/18 documented as of this encounter
--- OUTSIDE RECORDS SUMMARY | 2024-07-15 03:08 | XMS_ITS | Encounter Summary ---
Author Organization [facility] Address [facility]6 [facility] [place] [address] [place] [address] Care Team Providers Care Commodities Broker Name Role Phone Orlando Cortez MD Primary Care Provider Encounter Details Date Type Department Care Team (Late st Contact Info) Description 12/30/[address] [facility] [place] [address] Hero Shafer MD Social History Tobacco Use [...] of this encounter Visit Diagnoses Diagnosis Other specified diseases of biliary tract documented in this encounter Care Teams Commodities Broker Relationship Specialty Start Date End Date Orlando Cortez MD [address] [place] [phone] PCP - General FAMILY PRACTICE 06/27/18 documented as of this encounter
--- OUTSIDE RECORDS SUMMARY | 2024-07-15 03:08 | XMS_ITS | Encounter Summary ---
Author Organization [facility] Address [address] [place] [address]. [place] [address] [place] [address] Care Team Providers Care Mock Up Maker Name Role Phone Orlando Cortez MD Primary Care Provider [phone] Encounter Details Date Type Department Care Team (Late st Contact Info) Description 07/27/2017 Abstract [facility] [address] [facility] [place] [address] Orlando Cortez MD [address] [place] [phone] Social History Tobacco Use Types Packs/Day [...] region documented in this encounter Care Teams Mock Up Maker Relationship Specialty Start Date End Date Orlando Cortez MD [address] [place] [phone] PCP - General FAMILY PRACTICE 06/27/18 documented as of this encounter
--- OUTSIDE RECORDS SUMMARY | 2024-07-15 03:08 | XMS_ITS | Encounter Summary ---
Author Organization [facility] Address [address] [place] [address]. [place] [address] [place] [address] Care Team Providers Care Assistant Accounting Manager Name Role Phone Orlando Cortez MD Primary Care Provider [phone] Encounter Details Date Type Department Care Team (Late st Contact Info) Description 04/18/2018 Abstract [facility] [address] [facility] [place] [address] Orlando Cortez MD [address] [place] [phone] Social History Tobacco Use Types Packs/Day [...] as of this encounter Visit Diagnoses Diagnosis Pain in left wrist Pain in joint, forearm documented in this encounter Care Teams Assistant Accounting Manager Relationship Specialty Start Date End Date Orlando Cortez MD [address] [place] [phone] PCP - General FAMILY PRACTICE 06/27/18 documented as of this encounter
--- OUTSIDE RECORDS SUMMARY | 2024-07-15 03:08 | XMS_ITS | Encounter Summary ---
Author Organization [facility] Address [facility]6 [facility] 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
--- OUTSIDE RECORDS SUMMARY | 2024-07-15 03:08 | XMS_ITS | Encounter Summary ---
Author Organization [facility] Address [facility]6 [facility] [place] [address] [place] [address] Care Team Providers Care Day Care Home Mother Name Role Phone Orlando Cortez MD Primary Care Provider [phone] Encounter Details Date Type Department Care Team (Late st Contact Info) Description 09/30/2018 Abstract [facility] [address] [place] [address] Akira Maldonado MD [address] [place] [address] Social History Tobacco Use Types [...] on filedocumented in this encounter Care Teams Day Care Home Mother Relationship Specialty Start Date End Date Orlando Cortez MD [address] [place] [phone] PCP - General FAMILY PRACTICE 06/27/18 documented as of this encounter
--- OUTSIDE RECORDS SUMMARY | 2024-07-15 03:08 | XMS_ITS | Encounter Summary ---
Author Organization [facility] Address [address] [place] [address]. [place], [place] [address] [place] [address] Care Team Providers Care Conveyor Tender Name Role Phone Unavailable Primary Care Provider Unavailabl e Encounter Details Date Type Department Care Team (Latest Contact Info) Description 2017 Abstract [facility] Social History Tobacco Use Types [...]
--- OUTSIDE RECORDS SUMMARY | 2024-07-15 03:08 | XMS_ITS | Encounter Summary ---
Author Organization [facility] Address [address] [place] [address]. [place] [address] [place] [address] Care Team Providers Care Food And Drug Inspector Name Role Phone Orlando Cortez MD Primary Care Provider [phone] Encounter Details Date Type Department Care Team (Late st Contact Info) Description 06/30/2018 Orders Only [facility] Medical Group Oncology - [address] [phone] Hero Shafer MD Social History Tobacco Use [...] Associated Diagnosis Comments COMPREHENSIVE METABOLIC PANEL Routine 06/30/2018 12:12 PM MARKET RESEARCH INTERVIEWER Bone lesion CBC W/DIFF AUTOMATED Routine 06/30/2018 12:12 PM MARKET RESEARCH INTERVIEWER Bone lesion documented in this encounter Results * (ABNORMAL) CBC W/DIFF AUTOMATED (06/30/2018 12:12 PM MARKET RESEARCH INTERVIEWER) WBC 5.2 4.5 - 10.8 x10'3/uL [facility] RBC 4.58 4.10 - 5.40 x10'6/uL [facility] HGB 13.5 12.0 - 16.0 G/DL [facility] HCT 43.2 36.0 - 47.0 % [facility] MCV 94.3 78.0 - 100.0 FL [facility] MCH 29.5 27.0 - 31.0 PG [facility] MCHC 31.3(L) 33.0 - 36.0 G/DL [facility] RDW 13.1 11.5 - 14.5 % [facility] PLT 164 150 - 350 x10'3/uL [facility] MPV 10.5(H) 7.4 - 10.4 FL [facility] SEG NEUTROPHILS 58.3 % [facility] LYMPHOCYTES 29.8 % [facility] MONOCYTES 9.3 % [facility] EOSINOPHILS 1.4 % [facility] BASOPHILS 1.0 % [facility] IMMATURE GRANS % 0.2 % [facility] NRBC 0.0 % [facility] ABS. NEUTROPHILS 3.02 1.60 - 8.30 x10'3/uL [facility] ABS. LYMPHOCYTES 1.54 0.80 - 4.70 x10'3/uL [facility] ABS. MONOCYTES 0.48 0.00 - 1.50 x10'3/uL [facility] ABS. EOSINOPHILS 0.07 0.00 - 0.40 x10'3/uL [facility] ABS. BASOPHILS 0.05 0.00 - 0.20 x10'3/uL [facility] ABS. IMMATURE GRANULOCYTES 0.01 0.00 - 0.03 x10'3/uL [facility] ABS. NUCLEATED RBC'S 0.00 0.00 x10'3/uL [facility] 06/30/2018 12:1 2 PM MARKET RESEARCH INTERVIEWER 06/30/2018 12:14 PM MARKET RESEARCH INTERVIEWER us Hero Shafer MD LABORATORY Zita l Result [facility] [address] [place] [address], * (ABNORMAL) COMPREHENSIVE METABOLIC PANEL (06/30/2018 12:12 PM MARKET RESEARCH INTERVIEWER) SODIUM S/P/B 143 136 - 145 MMOL/L [facility] POTASSIUM S/P/B 3.9 3.5 - 5.1 MMOL/L [facility] CHLORIDE S/P/B 105 98 - 107 MMOL/L [facility] CO2 31.1 21.0 - 32.0 MMOL/L [facility] GLUCOSE 91 70 - 140 MG/DL [facility] BUN 15 6 - 24 MG/DL [facility] CREATININE S/P/B 0.84 0.55 - 1.02 MG/DL [facility] CALCIUM S/P/B 8.7 8.4 - 10.5 MG/DL [facility] BILIRUBIN TOTAL S/P/B 0.8 0.2 - 1.0 MG/DL [facility] ALKALINE PHOSPHATASE S/P/B 100 55 - 142 U/L [facility] AST 18 15 - 37 U/L [facility] ALT 24 14 - 59 U/L [facility] TOTAL PROTEIN S/P/B 6.0(L) 6.4 - 8.2 G/DL [facility] ALBUMIN S/P/B 3.3(L) 3.4 - 5.0 G/DL [facility] ANION GAP 6.9 MMOL/L [facility] Comment:REFERENCE RANGE NOT ESTABLISHED OSMOLALITY (CALC) 296 MOSM/KG [facility] Comment:REFERENCE RANGE NOT ESTABLISHED EGFR NON-AFR. AMER. 68(L) >89 ML/MIN/1 .73 M2 [facility] EGFR AFR. AMER. 79(L) >89 ML/MIN/1 .73 M2 [facility] GFR NOTES THE ESTIMATED GFR IS CALCULATED USING THE 2009 CKD-EPI EQUATION. THE FOLLOWING [facility] Comment: CATEGORIES FOR GRADING RENAL FUNCTION ARE RECOMMENDED BY THE INTERNATIONAL SOCIETY OF NEPHROLOGY (KDIGO 2012 CLINICAL PRACTICE GUIDELINE). G1,NORMAL OR HIGH: >89 ml/min/1.73 m2 G2,MILDLY DECREASED: 60-89 ml/min/1.73 m2 G3A,MILDLY TO MODERATELY DECREASED: 45-59 ml/min/1.73 m2 G3B,MODERATELY TO SEVERELY DECREASED: 30-44 ml/min/1.73 m2 G4,SEVERELY DECREASED: 15-29 ml/min/1.73 m2 G5,KIDNEY FAILURE: <15 ml/min/1.73 m2 06/30/2018 12:1 2 PM MARKET RESEARCH INTERVIEWER 06/30/2018 12:14 PM MARKET RESEARCH INTERVIEWER us Hero Shafer MD LABORATORY Zita l Result [facility] [address] [place] [address], documented in this encounter Visit Diagnoses Diagnosis Bone lesion Disorder of bone and cartilage, unspecified documented in this encounter Care Teams Food And Drug Inspector Relationship Specialty Start Date End Date Orlando Cortez MD [address] [place] [phone] PCP - General FAMILY PRACTICE 06/27/18 documented as of this encounter
--- OUTSIDE RECORDS SUMMARY | 2024-07-15 03:08 | XMS_ITS | Encounter Summary ---
Author Organization [facility] Address [facility]6 [facility] [place] [address] [place] [address] Care Team Providers Care Stained Glass Joiner Name Role Phone Unavailable Primary Care Provider Unavailabl e Encounter Details Date Type Department Care Team (Latest Contact Info) Description 06/07/2017 Abstract [facility] Maximo Lara MD [address] [place] [address] Social History Tobacco Use Types Packs/Day Years [...]
--- OUTSIDE RECORDS SUMMARY | 2024-07-15 03:08 | XMS_ITS | Encounter Summary ---
Author Organization [facility] Address [address] [place] [address]. [place], [place] [address] [place] [address] Care Team Providers Care Sheet Heater Helper Name Role Phone Unavailable Primary Care Provider Unavailabl e Encounter Details Date Type Department Care Team (Latest Contact Info) Description 11/18/2017 Abstract [facility] Social History Tobacco [...]
--- OUTSIDE RECORDS SUMMARY | 2024-07-15 03:08 | XMS_ITS | Encounter Summary ---
Author Organization [facility] Address [address] [place] [address]. [place] [address] [place] [address] Care Team Providers Care Traffic Control Specialist Name Role Phone rOlando Cortez MD Primary Care Provider [phone] Encounter Details Date Type Department Care Team (Late st Contact Info) Description 06/30/[address] [place] [address] Hero Shafer MD Social History Tobacco Use [...] COMPREHENSIVE METABOLIC PANEL Routine 06/30/2018 12:12 PM SHOPPER INSIGHTS MANAGER CBC W/DIFF AUTOMATED Routine 06/30/2018 12:12 PM SHOPPER INSIGHTS MANAGER documented in this encounter Results * (ABNORMAL) COMPREHENSIVE METABOLIC PANEL (06/30/2018 12:12 PM [facility]) SODIUM S/P/B 143 136 - 145 MMOL/L 06/30/2018 1:32 PM [facility] POTASSIUM S/P/B 3.9 3.5 - 5.1 MMOL/L 06/30/2018 1:32 PM [facility] CHLORIDE S/P/B 105 98 - 107 MMOL/L 06/30/2018 1:32 PM [facility] CO2 31.1 21.0 - 32.0 MMOL/L 06/30/2018 1:32 PM [facility] GLUCOSE 91 70 - 140 MG/DL 06/30/2018 1:32 PM [facility] BUN 15 6 - 24 MG/DL 06/30/2018 1:32 PM [facility] CREATININE S/P/B 0.84 0.55 - 1.02 MG/DL 06/30/2018 1:32 PM [facility] CALCIUM S/P/B 8.7 8.4 - 10.5 MG/DL 06/30/2018 1:32 PM [facility] BILIRUBIN TOTAL S/P/B 0.8 0.2 - 1.0 MG/DL 06/30/2018 1:32 PM [facility] ALKALINE PHOSPHATASE S/P/B 100 55 - 142 U/L 06/30/2018 1:32 PM [facility] AST 18 15 - 37 U/L 06/30/2018 1:32 PM [facility] ALT 24 14 - 59 U/L 06/30/2018 1:32 PM [facility] TOTAL PROTEIN S/P/B 6.0(L) 6.4 - 8.2 G/DL 06/30/2018 1:32 PM [facility] ALBUMIN S/P/B 3.3(L) 3.4 - 5.0 G/DL 06/30/2018 1:32 PM [facility] ANION GAP 6.9 MMOL/L 06/30/2018 1:32 PM [facility] Comment:REFERENCE RANGE NOT ESTABLISHED OSMOLALITY (CALC) 296 MOSM/KG 06/30/2018 1:32 PM SHOPPER INSIGHTS MANAGER [facility] Comment:REFERENCE RANGE NOT ESTABLISHED EGFR NON-AFR. AMER. 68(L) >89 ML/MIN/1 .73 M2 06/30/2018 1:32 PM SHOPPER INSIGHTS MANAGER [facility] EGFR AFR. AMER. 79(L) >89 ML/MIN/1 .73 M2 06/30/2018 1:32 PM [facility] GFR NOTES THE ESTIMATED GFR IS CALCULATED USING THE 2009 CKD-EPI EQUATION. THE FOLLOWING CATEGORIES FOR GRADING RENAL FUNCTION ARE RECOMMENDED BY THE INTERNATIONAL SOCIETY OF NEPHROLOGY (KDIGO 2012 CLINICAL PRACTICE GUIDELINE). 06/30/2018 1:32 PM [facility] Comment: G1,NORMAL OR HIGH: >89 ml/min/1.73 m2G2,MILDLY DECREASED: 60-89 ml/min/1.73 m2G3A,MILDLY TO MODERATELY DECREASED: 45-59 ml/min/1.73 m2G3B,MODERATELY TO SEVERELY DECREASED: 30-44 ml/min/1.73 m2G4,SEVERELY DECREASED: 15-29 ml/min/1.73 m2G5,KIDNEY FAILURE: <15 ml/min/1.73 m2 PLASMA SPECIMEN / Unknown 06/30/2018 12:12 PM SHOPPER INSIGHTS MANAGER 06/30/2018 1:14 PM SHOPPER INSIGHTS MANAGER us Generic Conversion Md [facility] Final R esult [facility] [address] [place] [address], * (ABNORMAL) CBC W/DIFF AUTOMATED (06/30/2018 12:12 PM SHOPPER INSIGHTS MANAGER) WBC 5.2 4.5 - 10.8 x10'3/uL 06/30/2018 1:17 PM SHOPPER INSIGHTS MANAGER [facility] RBC 4.58 4.10 - 5.40 x10'6/uL 06/30/2018 1:17 PM SHOPPER INSIGHTS MANAGER [facility] HGB 13.5 12.0 - 16.0 G/DL 06/30/2018 1:17 PM [facility] HCT 43.2 36.0 - 47.0 % 06/30/2018 1:17 PM [facility] MCV 94.3 78.0 - 100.0 FL 06/30/2018 1:17 PM [facility] MCH 29.5 27.0 - 31.0 PG 06/30/2018 1:17 PM [facility] MCHC 31.3(L) 33.0 - 36.0 G/DL 06/30/2018 1:17 PM [facility] RDW 13.1 11.5 - 14.5 % 06/30/2018 1:17 PM [facility] PLT 164 150 - 350 x10'3/uL 06/30/2018 1:17 PM [facility] MPV 10.5(H) 7.4 - 10.4 FL 06/30/2018 1:17 PM [facility] SEG NEUTROPHILS 58.3 % 8 1:17 PM [facility] LYMPHOCYTES 29.8 % 06/30/2018 1:17 PM [facility] MONOCYTES 9.3 % 06/30/2018 1:17 PM [facility] EOSINOPHILS 1.4 % 06/30/2018 1:17 PM [facility] BASOPHILS 1.0 % 06/30/2018 1:17 PM [facility] IMMATURE GRANS % 0.2 % 06/30/20 18 1:17 PM [facility] NRBC 0.0 % 06/30/2018 1:17 PM [facility] ABS. NEUTROPHILS 3.02 1.60 - 8.30 x10'3/uL 06/30/2018 1:17 PM [facility] ABS. LYMPHOCYTES 1.54 0.80 - 4.70 x10'3/uL 06/30/2018 1:17 PM [facility] ABS. MONOCYTES 0.48 0.00 - 1.50 x10'3/uL 06/30/2018 1:17 PM [facility] ABS. EOSINOPHILS 0.07 0.00 - 0.40 x10'3/uL 06/30/2018 1:17 PM SHOPPER INSIGHTS MANAGER [facility] ABS. BASOPHILS 0.05 0.00 - 0.20 x10'3/uL 06/30/2018 1:17 PM SHOPPER INSIGHTS MANAGER [facility] ABS. IMMATURE GRANULOCYTES 0.01 0.00 - 0.03 x10'3/uL 06/30/2018 1:17 PM SHOPPER INSIGHTS MANAGER [facility] ABS. NUCLEATED RBC'S 0.00 0.00 x10'3/uL 06/30/2018 1:17 PM SHOPPER INSIGHTS MANAGER [facility] OTHER (type in comments) 06/30/2018 12:12 PM SHOPPER INSIGHTS MANAGER 06/30/2018 1:14 PM SHOPPER INSIGHTS MANAGER Comment:WHOLE BLOOD SAMPLE us Generic Conversion Md [facility] Final R esult [facility] [address] [place] [address], documented in this encounter Visit Diagnoses Diagnosis Disorder of bone Disorder of bone and cartilage, unspecified documented in this encounter Care Teams Traffic Control Specialist Relationship Specialty Start Date End Date Orlando Cortez MD [address] [place] [phone] PCP - General FAMILY PRACTICE 06/27/18 documented as of this encounter
--- OUTSIDE RECORDS SUMMARY | 2024-07-15 03:08 | XMS_ITS | Encounter Summary ---
Author Organization [facility] Address [facility]6 [facility] [place] [address] [place] [address] Care Team Providers Care News Internship Name Role Phone Unavailable Primary Care Provider Unavailabl e Encounter Details Date Type Department Care Team (Late st Contact Info) Description 05/16/2018 Orders Only [facility] Medical Group Oncology [address] [phone] Hero Shafer MD Social History [...] documented as of this encounter Results * (ABNORMAL) COMPREHENSIVE METABOLIC PANEL (06/30/2018 12:12 PM INSULATION CUPOLA OPERATOR) SODIUM S/P/B 143 136 - 145 MMOL/L [facility] POTASSIUM S/P/B 3.9 3.5 - 5.1 MMOL/L [facility] CHLORIDE S/P/B 105 98 - 107 MMOL/L [facility] CO2 31.1 21.0 - 32.0 MMOL/L [facility] GLUCOSE 91 70 - 140 MG/DL [facility] BUN 15 6 - 24 MG/DL [facility] CREATININE S/P/B 0.84 0.55 - 1.02 MG/DL [facility] CALCIUM S/P/B 8.7 8.4 - 10.5 MG/DL [facility] BILIRUBIN TOTAL S/P/B 0.8 0.2 - 1.0 MG/DL [facility] ALKALINE PHOSPHATASE S/P/B 100 55 - 142 U/L [facility] AST 18 15 - 37 U/L [facility] ALT 24 14 - 59 U/L [facility] TOTAL PROTEIN S/P/B 6.0(L) 6.4 - 8.2 G/DL [facility] ALBUMIN S/P/B 3.3(L) 3.4 - 5.0 G/DL [facility] ANION GAP 6.9 MMOL/L [facility] Comment:REFERENCE RANGE NOT ESTABLISHED OSMOLALITY (CALC) 296 MOSM/KG [facility] Comment:REFERENCE RANGE NOT ESTABLISHED EGFR NON-AFR. AMER. 68(L) >89 ML/MIN/1 .73 M2 [facility] EGFR AFR. AMER. 79(L) >89 ML/MIN/1 .73 M2 [facility] GFR NOTES THE ESTIMATED GFR IS CALCULATED USING THE 2009 CKD-EPI EQUATION. THE FOLLOWING [facility] Comment: CATEGORIES FOR GRADING RENAL FUNCTION ARE RECOMMENDED BY THE INTERNATIONAL SOCIETY OF NEPHROLOGY (KDIGO 2012 CLINICAL PRACTICE GUIDELINE). G1,NORMAL OR HIGH: >89 ml/min/1.73 m2 G2,MILDLY DECREASED: 60-89 ml/min/1.73 m2 G3A,MILDLY TO MODERATELY DECREASED: 45-59 ml/min/1.73 m2 G3B,MODERATELY TO SEVERELY DECREASED: 30-44 ml/min/1.73 m2 G4,SEVERELY DECREASED: 15-29 ml/min/1.73 m2 G5,KIDNEY FAILURE: <15 ml/min/1.73 m2 06/30/2018 12:1 2 PM INSULATION CUPOLA OPERATOR 06/30/2018 12:14 PM INSULATION CUPOLA OPERATOR Hero Shafer MD LABORATORY Zita salcedo Result [facility] [address] [employer] [place] [id number], * (ABNORMAL) CBC W/DIFF AUTOMATED (06/30/2018 12:12 PM INSULATION CUPOLA OPERATOR) WBC 5.2 4.5 - 10.8 x10'3/uL [facility] RBC 4.58 4.10 - 5.40 x10'6/uL [facility] HGB 13.5 12.0 - 16.0 G/DL [facility] HCT 43.2 36.0 - 47.0 % [facility] MCV 94.3 78.0 - 100.0 FL [facility] MCH 29.5 27.0 - 31.0 PG [facility] MCHC 31.3(L) 33.0 - 36.0 G/DL [facility] RDW 13.1 11.5 - 14.5 % [facility] PLT 164 150 - 350 x10'3/uL [facility] MPV 10.5(H) 7.4 - 10.4 FL [facility] SEG NEUTROPHILS 58.3 % [facility] LYMPHOCYTES 29.8 % [facility] MONOCYTES 9.3 % [facility] EOSINOPHILS 1.4 % [facility] BASOPHILS 1.0 % [facility] IMMATURE GRANS % 0.2 % [facility] NRBC 0.0 % [facility] ABS. NEUTROPHILS 3.02 1.60 - 8.30 x10'3/uL [facility] ABS. LYMPHOCYTES 1.54 0.80 - 4.70 x10'3/uL [facility] ABS. MONOCYTES 0.48 0.00 - 1.50 x10'3/uL [facility] ABS. EOSINOPHILS 0.07 0.00 - 0.40 x10'3/uL [facility] ABS. BASOPHILS 0.05 0.00 - 0.20 x10'3/uL [facility] ABS. IMMATURE GRANULOCYTES 0.01 0.00 - 0.03 x10'3/uL [facility] ABS. NUCLEATED RBC'S 0.00 0.00 x10'3/uL [facility] 06/30/2018 12:1 2 PM INSULATION CUPOLA OPERATOR 06/30/2018 12:14 PM INSULATION CUPOLA OPERATOR us Hero Shafer MD LABORATORY Zita l Result [facility] [address] [place] [address], documented in this encounter Visit Diagnoses Diagnosis Bone lesion- Primary Disorder of bone and cartilage, unspecified documented in this encounter
--- OUTSIDE RECORDS SUMMARY | 2024-07-15 03:08 | XMS_ITS | Encounter Summary ---
Author Organization [facility] Address [address] [place] [address]. [place] [address] [place] [address] Care Team Providers Care Infertility Medical Assistant Name Role Phone Orlando Cortez MD Primary Care Provider Encounter Details Date Type Department Care Team (Late st Contact Info) Description 01/06/[address] [place] [address] Hero Shafer MD Social History Tobacco Use [...] CDT) WBC 5.1 4.5 - 10.8 x10'3/uL 01/06/2018 11:33 AM CDT [facility] RBC 4.60 4.10 - 5.40 x10'6/uL 01/06/2018 11:33 AM CDT [facility] HGB 13.6 12.0 - 16.0 G/DL 01/06/2018 11:33 AM CDT [facility] HCT 43.0 36.0 - 47.0 % 01/06/2018 11:33 AM CDT [facility] MCV 93.5 78.0 - 100.0 FL 01/06/2018 11:33 AM CDT [facility] MCH 29.6 27.0 - 31.0 PG 01/06/2018 11:33 AM CDT [facility] MCHC 31.6(L) 33.0 - 36.0 G/DL 01/06/2018 11:33 AM CDT [facility] RDW 13.2 11.5 - 14.5 % 01/06/2018 11:33 AM CDT [facility] PLT 180 150 - 350 x10'3/uL 01/06/2018 11:33 AM CDT [facility] MPV 10.8(H) 7.4 - 10.4 FL 01/06/2018 11:33 AM CDT [facility] SEG NEUTROPHILS 57.1 % 8 11:33 AM CDT [facility] LYMPHOCYTES 28.6 % 01/06/2018 11:33 AM CDT [facility] MONOCYTES 10.8 % 01/06/2018 11:33 AM CDT [facility] EOSINOPHILS 2.5 % 01/06/2018 11:33 AM CDT [facility] BASOPHILS 0.8 % 01/06/2018 11:33 AM CDT [facility] IMMATURE GRANS % 0.2 % 01/07/20 18 11:33 AM CDT [facility] NRBC 0.0 % 01/06/2018 11:33 AM CDT [facility] ABS. NEUTROPHILS 2.91 1.60 - 8.30 x10'3/uL 01/06/2018 11:33 AM CDT [facility] ABS. LYMPHOCYTES 1.46 0.80 - 4.70 x10'3/uL 01/06/2018 11:33 AM CDT [facility] ABS. MONOCYTES 0.55 0.00 - 1.50 x10'3/uL 01/06/2018 11:33 AM CDT [facility] ABS. EOSINOPHILS 0.13 0.00 - 0.40 x10'3/uL 01/06/2018 11:33 AM CDT [facility] ABS. BASOPHILS 0.04 0.00 - 0.20 x10'3/uL 01/06/2018 11:33 AM CDT [facility] ABS. IMMATURE GRANULOCYTES 0.01 0.00 - 0.03 x10'3/uL 01/06/2018 11:33 AM CDT [facility] ABS. NUCLEATED RBC'S 0.00 0.00 x10'3/uL 01/06/2018 11:33 AM CDT [facility] OTHER (type in comments) 01/06/2018 11:25 AM CDT 01/06/2018 11:27 AM CDT Comment:WHOLE BLOOD SAMPLE us Generic Conversion Md [facility] Final R esult [facility] [place] [address], documented in this encounter Visit Diagnoses Diagnosis Disorder of kidney and ureter Unspecified disorder of kidney and ureter documented in this encounter Care Teams Infertility Medical Assistant Relationship Specialty Start Date End Date Orlando Cortez MD [address] [place] [phone] PCP - General FAMILY PRACTICE 06/27/18 documented as of this encounter
--- OUTSIDE RECORDS SUMMARY | 2024-07-15 03:08 | XMS_ITS | Encounter Summary ---
Author Organization [facility] Address [address] [place] [address]. [place] [address] [place] [address] Care Team Providers Care Herb Doctor Name Role Phone Orlando Coretz MD Primary Care Provider [phone] Encounter Details Date Type Department Care Team (Late st Contact Info) Description 11/09/2017 Abstract [facility] [address] [facility] [place] [address] Orlando Cortez MD [address] [place] [phone] Social History Tobacco Use Types Packs/Day [...] system documented in this encounter Care Teams Herb Doctor Relationship Specialty Start Date End Date Orlando Cortez MD [address] [place] [phone] PCP - General FAMILY PRACTICE 06/27/18 documented as of this encounter
--- OUTSIDE RECORDS SUMMARY | 2024-07-15 03:08 | XMS_ITS | Encounter Summary ---
Author Organization [facility] Address [facility] [place] [address] [place] [address] Care Team Providers Care Medical Assembler Name Role Phone Unavailable Primary Care Provider Unavailabl e Encounter Details Date Type Department Care Team (Late st Contact Info) Description 11/25/2017 Abstract [facility] Oncology - [address] [phone] Hero Shafer MD Social History Tobacco Use [...] Sign Reading Time Taken Comments Blood Pressure 130/92 11/25/2017 11:22 AM CDT Pulse 67 11/25/2017 11:22 AM CDT Temperature - - Respiratory Rate - - Oxygen Saturation - - Inhaled Oxygen Concentration - - Weight 85.6 kg (188 lb 11.5 oz) 018 11:22 AM CDT Height 177.8 cm (5' 10) 11/25/2017 11: 22 AM CDT Body Mass Index 27.08 11/25/2017 11:22 AM CDT documented in this encounter Progress Notes * Hero Shafer MD - 11/25/2017 11:20 AM CDT Reason For Visit Consultation Visit, New Patient Visit Chief Complaint 77 year old female here for a consultation History of Present Illness HPI Free Text: is referred to us for concern of malignancy.He has history of neck painthat started about 6 months ago.she described sharp pain that radiates to both arms, mild to moderate in severity.Pain exacerbates on neck movements.She also reported numbness in R finders.Pain and numbness are stable over last 6 months.She was evaluated by bone scan twice(04/2017 and 10/2017) for this which showed uptake in lower cervical vertebrae with degenerative pattern and stable over these months.MRI C sine in 10/2017 showed several punctate foci of increased T2 signal within the posteriorelements of C7 concerning for possible malignant process. Patient has no significant medical comorbidities.She has FH of breast cancer. She smokes briefly(for 10 years)in the past. Review of Systems Constitutional: no fever, no chills and no fatigue. Head and Face: negative. Eyes: negative. ENT: negative. Cardiovascular: negative. Respiratory: negative. Genitourinary: negative. Musculoskeletal: as noted in HPI and back pain. Integumentary negative. Neurological As Noted in HPI and with tingling in the hands and feet. Psychiatric: negative. Hematologic and Lymphatic: negative. Active Problems 1. Aftercare following hip joint [...] 10. Lumbar radiculopathy, chronic (724.4) (M54.16) 11. Memory change (780.93) (R41.3) 12. Nontraumatic complete tear of right rotator cuff (727.61) (M75.121) 13. 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 Osteoarthritis of right hip (715.95) (M16.11) 15. Right elbow pain (719.42) (M25.521) 16. Right shoulder pain (719.41) (M25.511) 17. Rotator cuff arthropathy of left shoulder (716.81) (M12.812) 18. Rupture of right distal biceps tendon, subsequent encounter (V58.89,841.8) (S46.211D) 19. Shoulder pain, left (719.41) (M25.512) 20. Status post orthopedic surgery, follow-up exam (V67.09) (Z09) 21. Status post osteotomy (V45.89) (Z98.890) 22. Traumatic rupture of right distal biceps tendon, initial encounter (840.8) (S46.211A) 23. Ulnar nerve compression, right (354.2) (G56.21) Past Medical History 1. History of hypercholesterolemia (V12.29) (Z86.39) Surgical History 1. History of Hip Replacement Right 2. History of Knee Surgery Left 3. History of Knee Surgery Right Family History Family History 1. No pertinent family history Social History ?? Former smoker (V15.82) (Z87.891) ?? No alcohol use ?? Primary language is Greek ?? Retired Current Meds 1. Aricept 10 MG Oral Tablet; TAKE 1 TABLET DAILY DIRECTED; Therapy: 17Nov2017 to Recorded Dispense: 0 Days ; #: Sufficient Tablet; Refill: 0; For: Memory change; ROSA = N; Record; Last Updated By: Irina Romero; 11/17/2017 4:25:05 PM 2. Aricept 5 MG Oral Tablet; TAKE 1 TABLET AT BEDTIME; Therapy: [id number] to Recorded Dispense: 0 Days ; #: [...] Atorvastatin Calcium 40 MG Oral Tablet; Therapy: 78Yyq3754 to Recorded Dispense: 90 Days ; #:90; [...] Release; Take 1 tablet twice daily; Therapy: 83Vas2303 to (Evaluate:05May2017) Requested for: 87Mjm7739; Last Rx:[id number] Ordered Rx By: Magali Barreto; Dispense: 30 Days ; #:60 Tablet Delayed Release; Refill: 0; For: Aftercare following hip joint replacement surgery; ROSA = N; Verified Transmission to [facility]; Msg to Pharmacy: further refills needed through [...] 4 - 6 HRS PRN PAIN; Therapy: 72Uio8697 to (Last Rx:[id number]) Ordered Rx By: Maximo Lara; Dispense: 0 [...] Magali Barreto; 02/23/2017 12:26:12 PM Vitals Recorded: 25Nov2017 11:22AM Temperature 97.1 F Heart Rate 67 Respiration 18 Systolic 130 Diastolic 92 Height 5 ft 10 in Weight 188 lb 11.41 oz BMI Calculated 27.08 BSA Calculated 2.04 Pain Scale 0 Physical Exam Constitutional General appearance: No acute distress, well appearing and well nourished. Head and Face Head and face: Normal. Eyes Conjunctiva and lids: No swelling, erythema or discharge. Ears, Nose, Mouth, and Throat Oropharynx: Normal with no erythema, edema, exudate or lesions. Neck Neck: Supple, symmetric, trachea midline, no masses. Pulmonary Respiratory effort: No increased work of breathing or signs of respiratory distress. Auscultation of lungs: Clear to auscultation. Cardiovascular Auscultation of heart: Normal rate and rhythm, normal S1 and S2, no murmurs. Abdomen Abdomen: Non-tender, no masses. Liver and spleen: No hepatomegaly or splenomegaly. Lymphatic Palpation of lymph nodes in neck: No lymphadenopathy. Palpation of lymph nodes in axillae: No lymphadenopathy. Palpation of lymph nodes in groin: No lymphadenopathy. Musculoskeletal Gait and station: Normal. Skin Skin and subcutaneous tissue: Normal without rashes or lesions. Neurologic Cranial nerves: Cranial nerves II-XII intact. Psychiatric Orientation to person, place, and time: Normal. Mood and affect: Normal. Counseling The patient and patient's family was counseled regarding diagnostic results, patient and family education, impressions and Discussed imaging findings,possible etiologies, need for further work up, risks and benefits of further imaging and biopsies.. total time of encounter was 60 minutes and 40 minutes was spent counseling. Assessment 1. Bone lesion (733.90) (M89.9) 2. Cervical pain (723.1) (M54.2) 3. Cervical radiculopathy (723.4) (M54.12) Plan Bone lesion 1. Free Light Chains Prof; Status:Hold For - Manual Activation; Requested for:25Nov2017; Perform:[facility]; Due:25Dec2017;Ordered; For:Bone lesion; Ordered By:Hero Shafer; 2. Immunofixation Prof; Status:Hold For - Manual Activation; Requested for:25Nov2017; Perform:[facility]; Due:25Dec2017;Ordered; For:Bone lesion; Ordered By:Hero Shafer; 3. LDH (Lactate Dehydrogenase); Status:Hold For - Manual Activation; Requested for:25Nov2017; Perform:[facility]; Due:25Dec2017;Ordered; For:Bone lesion; Ordered By:Hero Shafer; 4. Protein Electrophoresis Prof; Status:Hold For - Manual Activation; Requested for:25Nov2017; Perform:[facility]; Due:25Dec2017;Ordered; For:Bone lesion; Ordered By:Hero Shafer; 5. Urine Immunofixation Profile; Status:Hold For - Manual Activation; Requested for:[id number]; Perform:[facility]; Due:25Dec2017;Ordered; For:Bone lesion; Ordered By:Hero Shafer; 77 yo ww with DJD has MRI abnormality of cervical vertebra(C7) 1.Bone lesion: Seen on bone scans(04/2017 and 10/2017), MRI C spine-several punctate foci of increased T2 signal within the posterior elements of C7 -Bone scan- uptake in pattern s/of degenerative disease and stable(cannot r/o malignant process) -Clinically has cervical pain with radiculopathy over last 6 months -No B symptoms -Per history, up to date with screening mammogram(02/2017- BIRADS-2), colonoscopy -Above findings seem to be benign from DJD but cannot r/o malignancy; Recommend CT CAP to see if any other mass lesions which can be biopsied;If not will discuss with IR regarding biopsy of C7 lesion -Check SPEP.MILEY,UPEP,sFLC analysis,LDH 2.Cervical pain/radiculopathy: Managed by RTC in 1 week with labs and CT Signatures Electronically signed by : Hero Shafer M.D.; Nov 25 2017 12:14PM BAGGING MACHINE OPERATOR (Author) documented in this encounter Plan of Treatment Not on file documented as of this encounter Procedures Procedure Name Priority Date/Time Associated Diagnosis Comments IMMUNOFIX ELECTROPHORESIS URINE RANDOM Routine 11/26/2017 8:00 AM CDT LDH, LACTATE DEHYDROGENASE Routine 11/25/2017 12:35 PM CDT IMMUNOFIXATION Routine 11/25/2017 12:35 PM CDT PROTEIN, ELECTROPHORESIS Routine 11/25/2017 12:35 PM CDT documented in this encounter Results * IMMUNOFIX ELECTROPHORESIS URINE RANDOM (11/26/2017 8:00 AM CDT) IMMUNOFIXATION URINE SEE PATHOLOGIST'S INTERPRETATION [facility] TO EPIC CONVERSION IMMUNOFIXATION URINE THIS URINE IMMUNOTYPING WAS INTERPRETED BY MD SHREYAS STEARNS PROTEIN NOT DETECTED. PERFORMED AT [facility], [address] [place] [address]. [phone] [facility] TO EPIC CONVERSION 11/26/2017 8:00 AM CDT 11/26/2017 8:00 AM CDT Narrative [facility] TO EPIC CONVERSION - 11/30/2017 11:10 AM CDT Result Communication: No patient communication needed at this time us Hero Shafer MD URINE ORDERABLES Fin al Result [facility] TO EPIC CONVERSION * (ABNORMAL) PROTEIN, ELECTROPHORESIS (11/25/2017 12:35 PM CDT) ALBUMIN S/P/B 3.9 3.4 - 4.9 G/DL [facility] TO EPIC CONVERSION BPHRS-0-QNTAUAYW CSF 0.3 0.2 - 0.4 G/DL [facility] TO EPIC CONVERSION AZPDF-4-KADAJKCP S/P/B 0.8 0.4 - 1.0 G/DL [facility] TO EPIC CONVERSION BETA GLOBULIN S/P/B 0.7 0.5 - 1.2 G/DL [facility] TO EPIC CONVERSION GAMMA GLOBULIN S/P/B 0.5(L) 0.6 - 1.6 G/DL [facility] TO EPIC CONVERSION TOTAL PROTEIN S/P/B 6.2 6.0 - 8.3 G/DL [facility] TO EPIC CONVERSION ELECTROPHORESIS INTERPRETATION THIS SERUM PEP WAS INTERPRETED BY DR ZAHIDA DURANT MD HYPOGAMMAGLOBU LINEMIA IS PRESENT. ??RECOMMEND CORRELATION WITH SERUM FREE LIGHT CHAINS TO EXCLUDE LIGHT CHAIN DISEASE. PERFORMED AT [facility], [address] [place] [address]. [phone] [facility] TO EPIC CONVERSION 11/25/2017 12:3 5 PM CDT 11/25/2017 12:35 PM CDT Narrative [facility] TO EPIC CONVERSION - 11/30/2017 11:09 AM CDT Result Communication: No patient communication needed at this time us Hero Shafer MD LABORATORY Zita l Result [facility] TO EPIC CONVERSION * LDH, LACTATE DEHYDROGENASE (11/25/2017 12:35 PM CDT) LDH 207 125 - 220 UNITS/L [facility] TO EPIC CONVERSION 11/25/2017 12:3 5 PM CDT 11/25/2017 12:35 PM CDT Narrative [facility] TO EPIC CONVERSION - 11/25/2017 1:08 PM CDT Result Communication: No patient communication needed at this time us Hero Shafer MD LABORATORY Zita l Result Performing Organization Address City/[facility] Co de Phone Number [facility] TO EPIC CONVERSION * IMMUNOFIXATION (11/25/2017 12:35 PM CDT) IMMUNOFIXATION SERUM SEE PATHOLOGIST'S INTERPRETATION [facility] TO EPIC CONVERSION INTERPRETATION THIS SERUM IMMUNOTYPING WAS INTERPRETED BY DR ZAHIDA DURANT MD MONOCLONAL PROTEIN NOT IDENTIFIED PERFORMED AT [facility], [address] [place] [address]. [phone] [facility] TO EPIC CONVERSION 11/25/2017 12:3 5 PM CDT 11/25/2017 12:35 PM CDT Narrative [facility] TO EPIC CONVERSION - 11/30/2017 11:10 AM CDT Result Communication: No patient communication needed at this time us Hero Shafer MD LABORATORY Zita l Result [facility] TO EPIC CONVERSION documented in this encounter Visit Diagnoses Not on filedocumented in this encounter
--- OUTSIDE RECORDS SUMMARY | 2024-07-15 03:08 | XMS_ITS | Encounter Summary ---
Author Organization [facility] Address [facility]6 [facility] [place] [address] [place] [address] Care Team Providers Care Medical Imaging Technologist Name Role Phone Unavailable Primary Care Provider Unavailabl e Encounter Details Date Type Department Care Team (Latest Contact Info) Description 11/29/2017 Abstract [facility] Group Hero Shafer MD Social History Tobacco Use [...] CREATININE S/P/B 0.73 0.57 - 1.11 MG/DL [facility] TO EPIC CONVERSION GFR ESTIMATE >60 >60 ML/MIN/1.7 3 M2 [facility] TO EPIC CONVERSION EGFR AFR. AMER. >60 >60 ML/MIN/1.7 3 M2 [facility] TO EPIC CONVERSION 11/29/2017 8:15 AM CDT 11/29/2017 8:15 AM CDT Narrative [facility] TO EPIC CONVERSION - 11/29/2017 8:35 AM CDT Result Communication: No patient communication needed at this time us Hero Shafer MD LABORATORY Zita salcedo Result [facility] TO EPIC CONVERSION documented in this encounter Visit Diagnoses Not on filedocumented in this encounter
--- OUTSIDE RECORDS SUMMARY | 2024-07-15 03:08 | XMS_ITS | Encounter Summary ---
Author Organization [facility] Address [address] [place] [address]. [place] [address] [place] [address] Care Team Providers Care Knitted Garment Finisher Name Role Phone Oralndo Cortez MD Primary Care Provider [phone] Encounter Details Date Type Department Care Team (Late st Contact Info) Description 01/18/[address] [facility] [address] [place] [address] Cricket Hung MD [address] [place] [address] Social History Tobacco Use Types [...] as of this encounter Visit Diagnoses Diagnosis Encounter for screening for malignant neoplasm of colon Special screening for malignant neoplasms, colon documented in this encounter Care Teams Knitted Garment Finisher Relationship Specialty Start Date End Date Orlando Cortze MD [address] [place] [phone] PCP - General FAMILY PRACTICE 06/27/18 documented as of this encounter
--- OUTSIDE RECORDS SUMMARY | 2024-07-15 03:08 | XMS_ITS | Encounter Summary ---
Author Organization [facility] Address [address] [place] [address]. [place] [address] [place] [address] Care Team Providers Care Sales Department Supervisor Name Role Phone Orlando Cortez MD Primary Care Provider [phone] Reason for Visit * Reason Comments Outside Record (SCAN) Fax Cover Sheet Encounter Details Date Type Department Care Team ([facility] Contact Info) Description 09/30/2018 Scan HEALTH INFO [facility] Scanned, Documents Outside Record (SCAN) (Fax Cover Sheet) Social History Tobacco Use Types Packs/Day Years [...] on filedocumented in this encounter Care Teams Sales Department Supervisor Relationship Specialty Start Date End Date Orlando Cortez MD [address] [place] [phone] PCP - General FAMILY PRACTICE 06/27/18 documented as of this encounter
--- OUTSIDE RECORDS SUMMARY | 2024-07-15 03:08 | XMS_ITS | Encounter Summary ---
Author Organization [facility] Address [facility] [facility] [place] [address] [place] [address] Care Team Providers Care Grain Cleaner Name Role Phone Unavailable Primary Care Provider Unavailabl e Encounter Details Date Type Department Care Team (Latest Contact Info) Description 01/19/2018 Abstract [facility] Group Social History Tobacco Use Types Packs/Day Years Used Date Smoking Tobacco: Never Assessed Comments Unknown Sex and Gender Information Value Date Recorded Sex Assigned at Not on file Legal Sex Female 6:36 PM CDT Gender Identity Not on file Sexual Orientation Not on file documented as of this encounter Progress Notes * Generic Conversion MD Shay - 01/19/2018 9:11 AM CDT Message Recorded as Task Date: 01/19/2018 09:05 AM, Created By: Meet Clancy Task Name: Call Back Assigned To: [facility]-Nursing Team Regarding Patient: Ernestine Salinas, Status: In Progress Comment: Meet Clancy - 19 Jan 2018 9:05 AM TASK CREATED called patient to inform her Dr Patel wanted her to see a DISABILITY INSURANCE HEARING OFFICER due to right adnexal mass. Patient requested I call daughter Mary with information, adina voicemail is full appointment is with Dr trinidad Camargo with [facility] @ [place] february 18 at 230. if patient is willing to drive to [place] she can get in sooner and may call [phone]. I will call daughter again later, records faxed to Meet Rodney - 19 Jan 2018 9:05 AM TASK IN PROGRESS Meet Clancy - 19 Jan 2018 1:09 PM TASK EDITED Daughters phone [phone] Meet Clancy 19 Jan 2018 1:55 PM TASK EDITED patients daughter notified verbalized understanding Signatures Electronically signed by : Meet Clancy, ; Jan 19 2018 1:56PM PUMP OPERATOR (Author) documented in this encounter Plan of Treatment Not on file documented as of this encounter Visit Diagnoses Not on filedocumented in this encounter
--- OUTSIDE RECORDS SUMMARY | 2024-07-15 03:08 | XMS_ITS | Encounter Summary ---
Author Organization [facility] Address [address] [place] [address]. [place] [address] [place] [address] Care Team Providers Care Data Deliverables Manager Name Role Phone Orlando Cortez MD Primary Care Provider Encounter Details Date Type Department Care Team (Late st Contact Info) Description 04/08/2018 Abstract [facility] [address] [place] [address] Akira Maldonado MD [address] [place] [address] Social History Tobacco Use Types [...] Diagnosis Comments HE4 OVARIAN CANCER MARKER Routine 04/08/2018 2:40 PM CDT IMMUNOASSAY, TUMOR ANTIGEN, CA 125 Routine 04/08/2018 2:40 PM CDT documented in this encounter Results * HE4 OVARIAN CANCER MARKER (04/08/2018 2:40 PM CDT) HE4 OVARIAN CA MONITORING 76 pmol/L 04/13/2018 11:36 AM CDT [facility] ENMA LARSEN Comment: Female Reference Ranges for HE4, Ovarian CancerMonitoring:Female Premenopausal ??< OR = 70 pmol/LFemale Postmenopausal < OR = 140 pmol/LTest performed by [facility] ? [address], ?[place] [address] ? Aclkfsl Director: Vandana Fitzgerald MD,PHD,REGGIE Test Reported by [facility],[employer] [facility],[address] [place] [id number] Dunham M.D., Ph.D., Director of [phone], [facility] [id number] SERUM SPECIMEN / Unknown 04/08/2018 2:40 PM CDT 04/08/2018 2:41 PM CDT us Generic Conversion Md [facility] Final R esult [facility] [address] [address], [place] [phone] * IMMUNOASSAY, TUMOR ANTIGEN, CA 125 (04/08/2018 2:40 PM CDT) CA 125 10.6 0.0 - 35.0 U/mL 04/09/2018 5:22 PM CDT [facility] SERUM OR PLASMA SPECIMEN / Unknown 04/08/2018 2:40 PM CDT 04/08/2018 2:41 PM CDT us Generic Conversion Md [facility] Final R esult [facility] [address] [place] [address], [id number] documented in this encounter Visit Diagnoses Diagnosis Noninflammatory disorder of ovary, fallopian tube and broad ligament, unspecified documented in this encounter Care Teams Data Deliverables Manager Relationship Specialty Start Date End Date Orlando Cortez MD [address] [place] [phone] PCP - General FAMILY PRACTICE 06/27/18 documented as of this encounter
--- OUTSIDE RECORDS SUMMARY | 2024-07-15 03:08 | XMS_ITS | Encounter Summary ---
Author Organization [facility] Address [address] [place] [address]. [place], [place] [address] [place] [address] Care Team Providers Care Pediatric Physiatrist Name Role Phone Unavailable Primary Care Provider Unavailabl e Encounter Details Date Type Department Care Team (Latest Contact Info) Description 11/09/2017 Abstract [facility] Medical Group Social History Tobacco [...]
--- OUTSIDE RECORDS SUMMARY | 2024-07-15 03:08 | XMS_ITS | Encounter Summary ---
Author Organization [facility] Address [facility] [place] [address] [place] [address] Care Team Providers Care Auditor Name Role Phone Unavailable Primary Care Provider Unavailabl e Encounter Details Date Type Department Care Team (Latest Contact Info) Description 11/08/2017 Abstract [facility] Stephan Barreto, HEAD CORRECTION OFFICER-[address] [place] [address] Social History Tobacco Use Types Packs/Day Years [...] Date/Time Associated Diagnosis Comments XR SHOULDER LT 1V Routine 11/08/2017 4:4 8 PM CDT documented in this encounter Results * XR SHOULDER LT 1V (11/08/2017 4:48 PM CDT) Anatomical Region Laterality Modality Shoulder Radiographic Mely ging 11/08/2017 4:48 PM CDT 11/08/2017 4:48 PM CDT Narrative 11/08/2017 4:52 PM CDT [facility] ?? [employer] ?? [place], [place] ? Patient Name: YOANDY SALINAS Date of : 1940 ?? Med Rec #: [id number] ??Age/Sex: 77/F ?Pt. Location: ORTHO ?? Attending Provider: STEPHAN BARRETO JAVA DEVELOPER WITH SECURITY CLEARANCE ?? Ordering Provider: STEPHAN BARRETO JAVA DEVELOPER WITH SECURITY CLEARANCE ? Study Date Order Number Procedure ?? 11/08/17 [id number] XR Shoulder 1 View Lt ? Signed ? Examination: Left shoulder. ? Exam time: 1433 hours. ? Clinical history: Pain. Arthritis. ? Comparison: 07/27/2017. ? Technique: True AP view. ? Findings: No fracture, dislocation or other acute bony abnormality is identified. Degenerative changes in the AC joint and moderate glenohumeral arthritis again evident. No other significant bone or joint abnormality is noted. The soft tissues are unremarkable. ? IMPRESSION: ?? Stable exam. No acute findings. ? Electronically Signed By: JUSTYNA LOBATO MD 11/08/171648 ? Dictated On: 11/08/171647 ?? Interpreted By: JUSTYNA LOBATO MD ?? Transcribed On: 11/08/171647 - [facility] ?? Procedure Note Marc Day MD - 05/04/[address] Patient Name: YOANDY SALINAS Date of : 1940 Med Rec #: [id number] Age/Sex: 77/F Pt. Location: ORTHO Attending Provider: STEPHAN BARRETO NP Ordering Provider: STEPHAN BARRETO NP Study Date Order Number Procedure 11/08/17 [id number] XR Shoulder 1 View Lt Signed Examination: Left shoulder. Exam time: 1433 hours. Clinical history: Pain. Arthritis. Comparison: 07/27/2017. Technique: True AP view. Findings: No fracture, dislocation or other acute bony abnormality isidentified. Degenerative changes in the AC joint and moderate glenohumeral arthritis again evident.No other significant bone or joint abnormality is noted. The soft tissues are unremarkable. IMPRESSION: Stable exam. No acute findings. Electronically Signed By: JUSTYNA LOBATO MD 11/08/171648 Dictated On: 11/08/171647 Interpreted By: JUSTYNA LOBATO MD Transcribed On: 11/08/171647 - [facility] us Stephan Barreto HEAD CORRECTION OFFICER-[facility] Final Resu lt documented in this encounter Visit Diagnoses Not on filedocumented in this encounter
--- OUTSIDE RECORDS SUMMARY | 2024-07-15 03:08 | XMS_ITS | Encounter Summary ---
Author Organization [facility] Address [address] [place] [address]. [place] [address] [place] [address] Care Team Providers Care Handmade Tile Artist Name Role Phone Orlando Cortez MD Primary Care Provider Encounter Details Date Type Department Care Team (Late st Contact Info) Description 11/25/[address] [place] [address] Hero Shafer MD Social History Tobacco Use [...] Procedure Name Priority Date/Time Associated Diagnosis Comments KAPPA LAMBDA FREE RATIO (QST) TIMED 11/25/2017 12:35 PM CDT LDH, LACTATE DEHYDROGENASE Routine 11/25/2017 12:35 PM CDT IMMUNOFIXATION Routine 11/25/2017 12:35 PM CDT PROTEIN, ELECTROPHORESIS Routine 11/25/2017 12:35 PM CDT documented in this encounter Results * LDH, LACTATE DEHYDROGENASE (11/25/2017 12:35 PM CDT) LDH 207 125 - 220 UNITS/L 11/25/2017 1:08 PM CDT [facility] SERUM OR PLASMA SPECIMEN / Unknown 11/25/2017 12:35 PM CDT 11/25/2017 12:39 PM CDT us Generic Conversion Md [facility] Final R esult [facility] [address] [place] [address], * KAPPA LAMBDA FREE RATIO (QST) (11/25/2017 12:35 PM CDT) KAPPA FREE LIGHT CHAIN 7.4 3.3 - 19.4 mg/L 11/27/2017 6:05 PM CDT [facility] LAMBDA FREE LIGHT CHAIN 5.8 5.7 - 26.3 mg/L 11/27/2017 6:05 PM CDT [facility] KAPPA/LAMBDA FREE 1.28 0.26 - 1.65 11/27/2017 6:05 PM CDT [facility] Comment: Free kappa/lambda ratio in serum of normal individualsis 0.26-1.65. Excess production of free kappa orlambda light chains alters the ratio. Ratios outsidethe normal range are attributed to the presence ofmonoclonal free light chains. Monoclonal free lightchains are found in the serum of patients withmultiple myeloma, Waldenstrom's macroglobulinemia,mu-heavy chain disease, primary amyloidosis, lightchain deposition disease, monoclonal gammopathy ofundetermined significance, and lymphoproliferativedisorders. Measurement of free light chain concen-tration in serum is useful for diagnosis, prognosis,monitoring disease activity and following response totherapy of these disorders.Test Performed by Yisel Hatfield,Liu Tomas [facility],[address] [place], [place] [address]Iuxrtbhmaryam Dunham M.D., Ph.D., Director of [phone], [facility] [id number] SERUM SPECIMEN / Unknown 11/25/2017 12:35 PM CDT 11/25/2017 12:39 PM CDT us Generic Conversion Md [facility] Final R esult [facility] [address] [place], [place] , [place] [phone] * IMMUNOFIXATION (11/25/2017 12:35 PM CDT) Pathologist [facility] [place] IMMUNOFIXATION SERUM SEE PATHOLOGIST'S INTERPRETATION 11/29/2017 11:30 AM CDT [facility] INTERPRETATION THIS SERUM IMMUNOTYPING WAS INTERPRETED BY 11/30/2017 11:10 AM CDT [facility] Comment:DR ZAHIDA DURANT, [facility] ONOCLONAL PROTEIN NOT IDENTIFIED 11/25/2017 12:3 5 PM CDT 11/25/2017 12:38 PM CDT us Generic Conversion Md [facility] Final R esult [facility] [address] [address], [place] [phone] [id number] * (ABNORMAL) PROTEIN, ELECTROPHORESIS (11/25/2017 12:35 PM CDT) Pathologist [facility] TOTAL PROTEIN (ELECTROPHORESIS SERUM) 6.2 6.0 - 8.3 G/DL 11/29/2017 11:29 AM CDT [facility] ALBUMIN ELECTROPHORESIS S/P/B 3.9 3.4 - 4.9 G/DL 11/29/2017 11:29 AM CDT [facility] [id number]-7-[id number] CSF 0.3 0.2 - 0.4 G/DL 11/29/2017 11:29 AM CDT [facility] [id number]-[id number] S/P/B 0.8 0.4 - 1.0 G/DL 11/29/2017 11:29 AM CDT [facility] BETA GLOBULIN S/P/B 0.7 0.5 - 1.2 G/DL 11/29/2017 11:29 AM CDT [facility] GAMMA GLOBULIN S/P/B 0.5(L) 0.6 - 1.6 G/DL 11/29/2017 11:29 AM CDT [facility] ELECTROPHORESIS INTERPRETATION THIS SERUM PEP WAS INTERPRETED BY 11/30/2017 11:09 AM CDT [facility] Comment: DR ZAHIDA DURANT MDHYPOGAMMAGLOBULINEMIA IS PRESENT. ??RECOMMEND CORRELATION WITH SERUM FREE LIGHT CHAINS TO EXCLUDE LIGHT CHAIN DISEASE. 11/25/2017 12:3 5 PM CDT 11/25/2017 12:38 PM CDT us Generic Conversion Md [facility] Final R esult [facility] [address] [place] [address], [id number] documented in this encounter Visit Diagnoses Diagnosis Disorder of bone Disorder of bone and cartilage, unspecified documented in this encounter Care Teams Handmade Tile Artist Relationship Specialty Start Date End Date Orlando Cortez MD [address] [place] [phone] PCP - General FAMILY PRACTICE 06/27/18 documented as of this encounter
--- OUTSIDE RECORDS SUMMARY | 2024-07-15 03:08 | XMS_ITS | Encounter Summary ---
Author Organization [facility] Address [address] [place] [address]. [place] [address] [place] [address] Care Team Providers Care Repairer Handtools Name Role Phone Orlando Cortez MD Primary Care Provider [phone] Encounter Details Date Type Department Care Team (Late st Contact Info) Description 11/08/2017 Abstract [facility] [address] [place], [place] [id number] Magali Barreto, [facility] [address] [place] [address] [place] [address] Social History Tobacco Use Types Packs/Day Years [...] of this encounter Visit Diagnoses Diagnosis Other specific arthropathies, not elsewhere classified, left shoulder documented in this encounter Care Teams Repairer Handtools Relationship Specialty Start Date End Date Orlando Cortez MD [address] [place] [phone] PCP - General FAMILY PRACTICE 06/27/18 documented as of this encounter
--- OUTSIDE RECORDS SUMMARY | 2024-07-15 03:08 | XMS_ITS | Encounter Summary ---
Author Organization [facility] Address [facility] [place] [address] [place] [address] Care Team Providers Care Supervisor Line Department Name Role Phone Unavailable Primary Care Provider Unavailabl e Encounter Details Date Type Department Care Team (Latest Contact Info) Description 11/29/2017 Abstract [facility] Shaw Shafer MD Social [...] Name Priority Date/Time Associated Diagnosis Comments CT CHEST+ABD+PEL W CON Routine 11/29/2017 12:59 PM CDT documented in this encounter Results * CT CHEST+ABD+PEL W CON (11/29/2017 12:59 PM CDT) Anatomical Region Laterality Modality Chest, Abdomen, Pelvis Computed Tomography 11/29/2017 12:5 9 PM CDT 11/29/2017 12:59 PM CDT Narrative 11/29/2017 2:05 PM CDT [facility] ?? [facility] [employer] ?? [place], [place] ? Patient Name: YOANDY SALINAS Date of : 1940 ?? [facility] Rec #: [id number] ??Age/Sex: 77/F ?Pt. Location: CT ?? Attending Provider: SHAW GLOVER MD ?? Ordering Provider: SHAW GLOVER MD ? Study Date Order Number Procedure ?? 11/29/17 [id number] CT Chest W Abd Pel W+ ? Signed ? EXAMINATION: CT Chest, Abdomen and Pelvis with contrast ? CLINICAL HISTORY: Disorder of bone, unspecified. Neck pain. Lower back pain. ? COMPARISON: MRI cervical spine on 2017. Nuclear medicine bone scan on 11/09/2017 and 04/21/2017 which is more consistent with degenerative pattern rather than metastasis. ? TECHNIQUE: Computed tomography of the chest, abdomen, [...] As Reasonably Achievable) / Image Gently techniques. ? FINDINGS: ?? CHEST: ?? Airway is intact. No pneumothorax. No pleural effusion. No suspicious lung mass or consolidation. No large pericardial effusion. Tortuous thoracic aorta without aneurysm or stenosis. Pulmonary artery is normal caliber. Subcentimeter thyroid nodules. Subcentimeter mediastinal and hilar lymph nodes. Small hiatal hernia. Indeterminate cystic lesion anterior/region of left subscapularis muscle (image 18, series 910). No axillary lymphadenopathy. ? ABDOMEN/PELVIS: ?? The liver, spleen, pancreas, and gallbladder are normal. Approximately 1.2 cm left adrenal nodule. Nonspecific right adrenal gland thickening. Kidneys enhance symmetrically and promptly. Probable cyst, right kidney. Nonwater density low-attenuation lesion in the posterior aspect of lower pole of left kidney measuring up to 9 mm (image 131, series 910). ? Atherosclerotic abdominal aorta without aneurysm. Asymmetric wall thickening of the distal descending colon measuring up to 1.3 cm (image 165, series 910). Appendix is normal. Subcentimeter mesenteric lymph nodes. No retroperitoneal lymphadenopathy. ? Uterus and left ovary identified. Enlargement of right ovary of up to 3.9 cm with heterogeneous density. No free pelvic fluid. Pelvic vascular arterial calcifications. No inguinal or pelvic lymphadenopathy. ? BONES: ?? 6 mm lytic lesion with sclerotic margins in the spinous process of C7 and left pedicle. Right hip prosthesis. Osteoarthritis, left hip. Decreased bone mineralization. Multiple vertebral body hemangiomas. Grade 1 spondylolisthesis, L4-L5. ? IMPRESSION: ? 1. Indeterminate asymmetric wall thickening, distal descending colon. Cannot exclude colon cancer. Consider further evaluation with direct visualization/colonoscopy.2. Indeterminate non-water density lesion, lower pole left kidney. Recommend CT abdomen with and without contrast according to renal mass protocol. ?? 3. Heterogeneously enlarged right ovary. Consider pelvic sonogram. ?? 4. Indeterminate 1.2 cm left adrenal nodule. Recommend CT/MRI adrenal protocol. ?? 5. Most likely benign lesion in the C7 cervical spine, with nonaggressive sclerotic margins. Unlikely multiple myeloma. Less likely metastasis. Consider follow-up to document stability. However , if a primary neoplasm is discovered and if needed for staging, may consider PET/CT or tissue. ? Electronically Signed By: LESLI WEST M.D 11/29/17 1403 ? Dictated On: 11/29/17 1259 ?? Interpreted By: LESLI WEST M.D ?? Transcribed On: 11/29/17 1259 - [facility] ?? Procedure Note Marc Day MD - 05/04/[address] Patient Name: YOANDY SALINAS Date of : 1940 Med Rec #: [id number] Age/Sex: 77/F Pt. Location: CT Attending Provider: SHAW GLOVER MD Ordering Provider: SHAW GLOVER MD Study Date Order Number Procedure 11/29/17 [id number] CT Chest W Abd Pel W+ Signed EXAMINATION: CT Chest, Abdomen and Pelvis with contrast CLINICAL HISTORY: Disorder of bone, unspecified. Neck pain. Lower backpain. COMPARISON: MRI cervical spine on 2017. Nuclear medicine bone scan on11/09/2017 and 04/21/2017 which is more consistent with degenerative pattern rather than metastasis. TECHNIQUE: Computed tomography of the chest, abdomen, and pelvis wasperformed after the administration of 89 mL Isovue-370 contrast according to routine protocolwithout immediate complication. A dose lowering technique was used for this procedure, whichmay include, but is not limited to, dose reduction technique, automated exposure control, the useof iterative reconstruction, and ALARA (As Low As Reasonably Achievable) / Image Gentlytechniques. FINDINGS: CHEST: Airway is intact. No pneumothorax. No pleural effusion. No suspiciouslung mass or consolidation. No large pericardial effusion. Tortuous thoracic aorta without aneurysm orstenosis. Pulmonary artery is normal caliber. Subcentimeter thyroid nodules. Subcentimetermediastinal and hilar lymph nodes. Small hiatal hernia. Indeterminate cystic lesion anterior/region ofleft subscapularis muscle (image 18, series 910). No axillary lymphadenopathy. ABDOMEN/PELVIS: The liver, spleen, pancreas, and gallbladder are normal. Approximately1.2 cm left adrenal nodule. Nonspecific right adrenal gland thickening. Kidneys enhance symmetricallyand promptly. Probable cyst, right kidney. Nonwater density low-attenuation lesion in theposterior aspect of lower pole of left kidney measuring up to 9 mm (image 131, series 910). Atherosclerotic abdominal aorta without aneurysm. Asymmetric wallthickening of the distal descending colon measuring up to 1.3 cm (image 165, series 910). Appendixis normal. Subcentimeter mesenteric lymph nodes. No retroperitoneal lymphadenopathy. Uterus and left ovary identified. Enlargement of right ovary of up to 3.9cm with heterogeneous density. No free pelvic fluid. Pelvic vascular arterial calcifications. Noinguinal or pelvic lymphadenopathy. BONES: 6 mm lytic lesion with sclerotic margins in the spinous process of C7 andleft pedicle. Right hip prosthesis. Osteoarthritis, left hip. Decreased bone mineralization.Multiple vertebral body hemangiomas. Grade 1 spondylolisthesis, L4-L5. IMPRESSION: 1. Indeterminate asymmetric wall thickening, distal descending colon.Cannot exclude colon cancer. Consider further evaluation with direct visualization/colonoscopy.2.Indeterminate non-water density lesion, lower pole left kidney. Recommend CT abdomen with andwithout contrast according to renal mass protocol. 3. Heterogeneously enlarged right ovary. Consider pelvic sonogram. 4. Indeterminate 1.2 cm left adrenal nodule. Recommend CT/MRI adrenalprotocol. 5. Most likely benign lesion in the C7 cervical spine, with nonaggressivesclerotic margins. Unlikely multiple myeloma. Less likely metastasis. Consider follow-up todocument stability. However , if a primary neoplasm is discovered and if needed for staging, mayconsider PET/CT or tissue. Electronically Signed By: LESLI WEST M.D 11/29/17 1403 Dictated On: 11/29/17 1259 Interpreted By: LESLI WEST M.D Transcribed On: 11/29/17 1259 - [facility] Shaw Shafer MD CT Zita salcedo Result documented in this encounter Visit Diagnoses Not on filedocumented in this encounter
--- OUTSIDE RECORDS SUMMARY | 2024-07-15 03:08 | XMS_ITS | Encounter Summary ---
Author Organization [facility] Address [facility] [place] [address] [place] [address] Care Team Providers Care Medical Clerical Assistant Name Role Phone Unavailable Primary Care Provider Unavailabl e Encounter Details Date Type Department Care Team (Late st Contact Info) Description 05/16/2018 Orders Only [facility] Medical Group Oncology - [address] [phone] Hero Shafer MD Social History [...]
--- OUTSIDE RECORDS SUMMARY | 2024-07-15 03:08 | XMS_ITS | Encounter Summary ---
Author Organization [facility] Address [facility] [place] [address] [place] [address] Care Team Providers Care Informatics Scientist Name Role Phone Orlando Cortez MD Primary Care Provider [phone] Reason for Visit * Reason Comments Outside Record (SCAN) Patient Insurance Card Info ([place] [employer]) Encounter Details Date Type Department Care Team ([facility] Contact Info) Description 09/30/2018 Scan HEALTH INFO [facility] Scanned, Documents Outside Record (SCAN) (Patient Insurance Card Info ([place] [employer])) Social History Tobacco Use Types Packs/Day Years [...] on filedocumented in this encounter Care Teams Informatics Scientist Relationship Specialty Start Date End Date Orlando Cortez MD [address] [place] [phone] PCP - General FAMILY PRACTICE 06/27/18 documented as of this encounter
--- OUTSIDE RECORDS SUMMARY | 2024-07-15 03:08 | XMS_ITS | Encounter Summary ---
Author Organization [facility] Address [address] [place] [address]. [place], [place] [address] [place] [address] Care Team Providers Care Housekeeping Director Name Role Phone Unavailable Primary Care Provider Unavailabl e Encounter Details Date Type Department Care Team (Latest Contact Info) Description 11/16/2017 Abstract [facility] Social History Tobacco Use Types [...]
--- OUTSIDE RECORDS SUMMARY | 2024-07-15 03:08 | XMS_ITS | Encounter Summary ---
Author Organization [facility] Address [address] [place] [address]. [place], [place] [address] [place] [address] Care Team Providers Care Manager Spring Name Role Phone Unavailable Primary Care Provider Unavailabl e Encounter Details Date Type Department Care Team (Latest Contact Info) Description 11/19/2017 Abstract [facility] Medical Group Social History Tobacco Use Types [...]
--- OUTSIDE RECORDS SUMMARY | 2024-07-15 03:08 | XMS_ITS | Encounter Summary ---
Author Organization [facility] Address [address] [place] [address]. [place], [place] [address] [place] [address] Care Team Providers Care Certified Lactation Counselor Name Role Phone Unavailable Primary Care Provider Unavailabl e Encounter Details Date Type Department Care Team (Latest Contact Info) Description 04/08/2018 Abstract [facility] Medical Group , Generic Conversion, Social History Tobacco Use Types Packs/Day Years [...]
--- OUTSIDE RECORDS SUMMARY | 2024-07-15 03:08 | XMS_ITS | Encounter Summary ---
Author Organization [facility] Address [address] [place] [address]. [place] [address] [place] [address] Care Team Providers Care Absence Management Consultant Name Role Phone Orlando Cortez MD Primary Care Provider [phone] Encounter Details Date Type Department Care Team (Late st Contact Info) Description 01/11/2018 Abstract [facility] [address] [place] [address] Hero Shafer MD Social History Tobacco Use [...] as of this encounter Visit Diagnoses Diagnosis Acquired cyst of kidney documented in this encounter Care Teams Absence Management Consultant Relationship Specialty Start Date End Date Orlando Cortez MD [address] [place] [phone] PCP - General FAMILY PRACTICE 06/27/18 documented as of this encounter
--- OUTSIDE RECORDS SUMMARY | 2024-07-15 03:08 | XMS_ITS | Encounter Summary ---
Author Organization [facility] Address [address] [place] [address]. [place] [address] [place] [address] Care Team Providers Care Transcription Coordinator Name Role Phone Unavailable Primary Care Provider Unavailabl e Encounter Details Date Type Department Care Team (Late st Contact Info) Description 01/06/2018 Abstract [facility] Oncology - [address] [phone] Shaw Shafer MD Social History Tobacco Use [...] Sign Reading Time Taken Comments Blood Pressure 132/85 01/06/2018 11:40 AM CDT Pulse 72 01/06/2018 11:40 AM CDT Temperature - - Respiratory Rate - - Oxygen Saturation - - Inhaled Oxygen Concentration - - Weight 85.4 kg (188 lb 4 oz) 01/06/2018 11:40 AM CDT Height - - Body Mass Index 27.01 12/02/2017 10:08 AM CDT documented in this encounter Progress Notes * Shaw Shafer MD - 01/06/2018 11:40 AM CDT Reason For Visit Reason For Visit: Consultation Follow-Up Chief Complaint 77 yo woman is here for follow up History of Present Illness HPI Free Text: returns for follow. She had follow up CT adrenal protocol for adrenal nodule.It is suggestive of benign etiology,likely myolipoma.It also showed incidental L inferior renal pole 1.2 cm lesion,stable R adnexal 4 cm cyst and descending colon asymmetric wall thickening. She states that neck pain is improving.She denied weakness or numbness in upper extremities.No recent fatigue or weight loss or night sweats. Review of Systems Constitutional: no fever and not feeling tired. ENT: normal. Cardiovascular: Normal. Respiratory: Normal. Gastrointestinal: [...] Osteoarthritis of right hip (715.95) (M16.11) 18. Renal lesion (593.9) (N28.9) 19. Right elbow pain (719.42) (M25.521) 20. Right shoulder pain (719.41) (M25.511) 21. Rotator cuff arthropathy of left shoulder (716.81) (M12.812) 22. Rupture of right distal biceps tendon, subsequent encounter (V58.89,841.8) (S46.211D) 23. Shoulder pain, left (719.41) (M25.512) 24. Status post orthopedic surgery, follow-up exam (V67.09) (Z09) 25. Status post osteotomy (V45.89) (Z98.890) 26. Traumatic rupture of right distal biceps tendon, initial encounter (840.8) (S46.211A) 27. Ulnar nerve compression, right (354.2) (G56.21) Past Medical History ?? History of hypercholesterolemia (V12.29) (Z86.39) Surgical History ?? History of Hip Replacement Right ?? History of Knee Surgery Left ?? History of Knee Surgery Right Family History Family History ?? No pertinent family history Social History ?? Former smoker (V15.82) (Z87.891) ?? No alcohol use ?? Primary language is [place]ican ?? Retired Current Meds 1. Aricept 10 MG Oral Tablet; TAKE 1 TABLET DAILY DIRECTED; Therapy: 17Nov2017 to Recorded Dispense: 0 Days ; #: Sufficient Tablet; Refill: 0; For: Memory change; ROSA = N; Record; Last Updated By: Irina Romero; 11/17/2017 4:25:05 PM 2. Aspir-Low 81 MG Oral Tablet Delayed Release; TAKE 1 TABLET DAILY; Therapy: 17Nov2017 to Recorded Dispense: 0 Days ; #: Sufficient Tablet; Refill: 0; ROSA = N; Record; Last Updated By: Irina Romero; 11/17/2017 4:25:05 PM 3. Atorvastatin Calcium 40 MG Oral Tablet; Therapy: [id number] to Recorded Dispense: 90 Days ; #:90; Refill: 0; ROSA = N; Record; Last Updated By: Magali Barreto; 09/25/2016 11:32:40 AM 4. Centrum Silver Ultra Womens Oral Tablet; TAKE 1 TABLET DAILY; Therapy: 17Nov2017 to Recorded Dispense: 0 Days ; #: Sufficient Tablet; Refill: 0; ROSA = N; Record; Last Updated By: Irina Romero; 11/17/2017 4:25:05 PM 5. Fish Oil Pearls 300 MG Oral Capsule; TAKE DIRECTED; Therapy: 17Nov2017 to Recorded Dispense: 0 Days ; #: Sufficient Capsule; Refill: 0; ROSA = N; Record; Last Updated By: Irina Romero;11/17/2017 4:25:05 PM 6. Melatonin 10 MG Oral Tablet; TAKE 1 TABLET Bedtime; Therapy: 17Nov2017 to Recorded Dispense: 0 Days ; #: Sufficient Tablet; Refill: 0; ROSA = N; Record; Last Updated By: Irina Romero; 11/17/2017 4:25:05 PM 7. Osteo Bi-Flex Triple Strength Oral Tablet; TAKE 1 TABLET DAILY DIRECTED; Therapy: 17Nov2017 to Recorded Dispense: 0 Days ; #: Sufficient Tablet; Refill: 0; For: Cervical pain; ROSA = N; Record; Last Updated By: Irina Romero; 11/17/2017 4:25:05 PM 8. Sertraline HCl - 50 MG Oral Tablet; Therapy: 10Aug2016 to Recorded Dispense: 30 Days ; #:30; Refill: 0; ROSA = N; Record; Last Updated By: Magali Barreto; 09/25/2016 11:32:40 AM 9. TraMADol HCl - 50 MG Oral Tablet; one or two tabs by mouth four times a day as needed; Therapy: 17Nov2017 to Recorded Dispense: 0 Days ; #: Sufficient Tablet; Refill: 0; For: Cervical radiculopathy; ROSA = N; Record; Last Updated By: Irina Romero; 11/17/2017 4:25:05 PM 10. Triamcinolone Acetonide 0.1 % External Cream; Therapy: 24Dec2016 to Recorded Dispense: 30 Days ; #:80; Refill: 0; ROSA = N; Record; Last Updated By: Magali Barreto; 02/23/2017 12:26:12 PM Vitals Recorded: 06Jan2018 11:40AM Temperature 95.6 F, Tympanic Heart Rate 72 Respiration 16 Systolic 132, LUE, Sitting Diastolic 85, LUE, Sitting Weight 188 lb 4 oz BMI Calculated 27.01 BSA Calculated 2.03 Physical Exam Constitutional General appearance: No acute [...] subcutaneous tissue: Normal without rashes or lesions. Psychiatric Orientation to person, place, and time: Normal. Mood and affect: Normal. Results/Data CT Abdomen Pelvis WWO 30Dec2017 10:24AM Shaw Shafer Test Name Result Flag Reference CT Abdomen Pelvis WWO (Report) [address] Patient Name: YOANDY SALINAS Date of : 1940 Med Rec #: [id number] Age/Sex: 77/F Pt. Location: CT Attending Provider: SHAW GLOVER MD Ordering Provider: SHAW GLOVER MD Study Date Order Number Procedure 12/30/17 [id number] CT Abdomen Pelvis WWO Signed EXAM: CTU ABDOMEN - PELVIS WITHOUT AND WITH CONTRAST INDICATION: Follow-up indeterminant previously reported colonic, left [...] 11/29/2017 FINDINGS: Redemonstrated multifocal areas of right diaphragmatic eventration. Some stable areas of bibasilar linear scarring and/or atelectasis. HOLLOW VISCERA-MESENTERY: Distal esophagus/stomach: Suggestion of small stable hiatal hernia. Decompressed stomach. Bowel: Duodenum demonstrates normal course and [...] bowel obstruction, pneumoperitoneum, or significant abdominal ascites. VASCULATURE:Tortuous aorta with some atherosclerotic plaque, similar to prior study. Focal mild to moderate stenosis redemonstrated at the origins of the renal arteries bilaterally, similar to prior study. No superimposed penetrating ulcer. No suspicious periaortic fluid collection or extravasated arterial contrast. The IVC and portal vein appear within normal limits. SOLID VISCERA-RETROPERITONEUM: [id number]-[id number]: The gallbladder is within normal limits. Redemonstrated lobulated hepatic contours. Few nonspecific splenic subcentimeter hypodensities on the venous phase, too small to characterize. Pancreas: [...] mm within normal limits for patient's age. Adrenals: Redemonstrated left adrenal mass measuring 2.3 x 1.6 mm in cross- section with macroscopic fat measuring -18 Hounsfield units on noncontrast imaging compatible with benign adrenal myelolipoma right adrenal gland appears stable and within normal limits. : Redemonstrated symmetric kidneys with some mild [...] appears stable in size in the interval. Redemonstrated stable dominant right renal cortical lower pole cyst. No hydronephrosis or perinephric fluid collection. No calcified urolithiasis. The bladder is only partially distended on several of the submitted images. There is also obscuration of the bladder as well as additional pelvic structures from some streak artifact from right femoral arthroplasty hardware compromising evaluation of this region TONGUE AND GROOVE MACHINE SETTER: Indeterminant right adnexal 4 x 3.5 cm cyst appears intraovarian and fairly stable in the interval. No significant pelvic free fluid. Uterus appears within normal limits and slightly retroflexed. SOFT TISSUES-OSSEOUS: Right femoral [...] lower thoracic and lumbar spine vertebral hemangiomas. IMPRESSION: 1. Stable size of left inferior renal indeterminant 1.2 cm nodule with indeterminant attenuation- enhancement characteristics. Differential includes complicated cyst, complex cyst, versus subtle solid nodule. Consider renal ultrasound to better characterize. 2. Stable dominant simple right renal cortical cyst. 3. Progressive worsening segmental descending colonic/sigmoid mural thickening with stable surrounding trace fat stranding. No signs of acute colitis. Underlying malignancy therefore is not excluded. Strongly consider direct visualization if not already performed in the interval. 4. Stable indeterminant right adnexal potential ovarian 4 cm cyst, abnormal in a postmenopausal female. Recommend pelvic ultrasound to further exclude neoplasm. 5. Stable pancreatic versus peripancreatic 3.2 cm cyst. Stable focal proximal pancreatic atrophy. 6. Stable mild age expected CBD dilatation. 7. 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 Numerous additional incidental, stable, and chronic appearing findings. Electronically Signed By: OSIEL TEE M.D. 12/30/17 1603 Dictated On: 12/30/17 1024 Interpreted By: OSIEL TEE M.D. Transcribed On: 12/30/17 1024 - INF[facility] CT Chest W Abd Pel W+ [id number] 12:59PM Shaw Shafer Test Name Result Flag Reference CT Chest W Abd Pel W+ (Report) [address] Patient Name: YOANDY SALINAS Date of : 1940 Med Rec #: [id number] Age/Sex: 77/F Pt. Location: CT Attending Provider: SHAW GLOVER MD Ordering Provider: SHAW GLOVER MD Study Date Order Number Procedure 11/29/17 [id number] CT Chest W Abd Pel W+ Signed [...] M.D Transcribed On: 11/29/17 1259 - [facility] Counseling Counseling Documentation: The patient and patient's family was counseled regarding diagnostic results, instructions for management, patient and family education, impressions and Discussed imaging findings, thir implications.. total time of encounter was 25 minutes and 15 minutes was spent counseling. Assessment 1. Cervical radiculopathy (723.4) (M54.12) 2. Colon wall thickening (569.89) (K63.9) 3. Lesion of adrenal gland (255.9) (E27.9) 4. Bone lesion (733.90) (M89.9) 5. Renal lesion (593.9) (N28.9) 6. Ovarian cyst (620.2) (N83.209) Plan Ovarian cyst ?? US Transvaginal Non OB; Status:Hold For - Scheduling; Requested for:06Jan2018; Perform:[facility]; Due:[id number];Ordered; For:Ovarian cyst; Ordered By:Shaw Shafer; Renal lesion ?? US Renal Lt; Status:Hold For - Scheduling; Requested for:06Jan2018; Perform:[facility]; Due:02Zhi2210;Ordered; For:Renal lesion; Ordered By:Shaw Shafer; 77 yo ww with DJD has MRI abnormality of cervical vertebra(C7) 1.Bone lesion: Likely benign - Seen on bone scans(04/2017 and 10/2017)uptake in pattern s/of degenerative disease , MRI C spine-several punctate foci of increased T2 signal within the posterior elements of C7 -CT CAP showed multiple vertebral hemangiomas -SPEP/MILEY and Urine MILEY- No monoclonal protein -The C7 lesion is likely benign(sclerosed hemangioma) but cannot rule out malignancy unless a biopsy is performed; Patient refused a biopsy at this time -Will repeat CT C spine in 6 months -Clinically has cervical pain with radiculopathy which is improving but no B symptoms -Mammogram(02/2017- BIRADS-2) 2.Incidental findings on imaging: a)L adrenal lesion: 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) b)L renal lesion-indeterminate- will get USG kidney c)R adnexal cyst-indeterminate- will get pelvic USG d)Descending colon wall thickening: Per patient, colonoscopy in 2016 showed polyps -Repeat colonoscopy planned in next few weeks by Dr.Cochran CRUZ 3.Cervical pain/radiculopathy: Managed by -Improving RTC in [address] C spine and labs Signatures Electronically signed by : Shaw Shafer M.D.; Jan 06 2018 11:59AM CRUISE DIRECTOR (Author) documented in this encounter Plan of Treatment Not on file documented as of this encounter Procedures Procedure Name Priority Date/Time Associated Diagnosis Comments ULTRASOUND GENERIC (SCAN ORDER) Routine 01/11/2018 4:19 PM CDT ULTRASOUND GENERIC (SCAN ORDER) Routine 01/11/2018 4:07 PM CDT ULTRASOUND GENERIC (SCAN ORDER) Routine 01/11/2018 4:07 PM CDT documented in this encounter Results * ULTRASOUND GENERIC (01/11/2018 4:19 PM CDT) Anatomical Region Laterality Modality Other 01/11/2018 4:19 PM CDT 01/11/2018 4:19 PM CDT Narrative 01/11/2018 4:35 PM CDT [facility] ?? [facility] [employer] ?? [place] ? Patient Name: YOANDY SALINAS Date of : 1940 ?? Med Rec #: [id number] ??Age/Sex: 77/F ?Pt. Location: US ?? Attending Provider: SHAW GLOVER MD ?? Ordering Provider: SHAW GLOVER MD ? Study Date Order Number Procedure ?? 01/11/18 [id number] US Renal Echo ? Signed ? EXAMINATION: Complete retroperitoneal ultrasound ? CLINICAL HISTORY: Indeterminate renal lesion, left kidney. ? COMPARISON: CT abdomen pelvis with and without contrast on 12/30/2017. ? TECHNIQUE: An ultrasound examination of bilateral kidneys and urinary bladder was performed to assess grayscale and color flow characteristics. ? FINDINGS: ?? Right kidney: Measures 10.8 x 5.6 x 5 cm. Normal echogenicity. Normal cortical perfusion. ?? No masses, stones or hydronephrosis. Anechoic 1.2 cm cyst with thin hill and posterior acoustic enhancement; with no evidence of internal vascularity. ? Left kidney: Measures 10.2 x 5.6 x 4.9 cm. Normal echogenicity. Normal cortical perfusion. ?? No masses, stones or hydronephrosis. Previously described lesion in left kidney not well visualized. ? Urinary bladder: ??Normal sonographic appearance. Bilateral bladder-urine jets observed. ? IMPRESSION: ?? 1. Simple cyst, RIGHT kidney. ?? 2. Previously described indeterminate lesion, LEFT kidney, not well seen on sonogram. Most likely proteinaceous/hemorrhagic cysts as described on prior CT. Recommend CT abdomen/pelvis follow-up in 6 -12 months to document stability. ? Electronically Signed By: LESLI WEST M.D 01/11/18 1632 ? Dictated On: 01/11/18 1619 ?? Interpreted By: LESLI WEST M.D ?? Transcribed On: 01/11/18 1619 - [facility] ?? Procedure Note Marc Cruz MD - 05/04/[address] Patient Name: YOANDY SALINAS Date of : 1940 Med Rec #: [id number] Age/Sex: 77/F Pt. Location: US Attending Provider: SHAW GLOVER MD Ordering Provider: SHAW GLOVER MD Study Date Order Number Procedure 01/11/18 [id number] US Renal Echo Signed EXAMINATION: Complete retroperitoneal ultrasound CLINICAL HISTORY: Indeterminate renal lesion, left kidney. COMPARISON: CT abdomen pelvis with and without contrast on 12/30/2017. TECHNIQUE: An ultrasound examination of bilateral kidneys and urinarybladder was performed to assess grayscale and color flow characteristics. FINDINGS: Right kidney: Measures 10.8 x 5.6 x 5 cm. Normal echogenicity. Normalcortical perfusion. No masses, stones or hydronephrosis. Anechoic 1.2 cm cyst with thin hill andposterior acoustic enhancement; with no evidence of internal vascularity. Left kidney: Measures 10.2 x 5.6 x 4.9 cm. Normal echogenicity. Normalcortical perfusion. No masses, stones or hydronephrosis. Previously described lesion in leftkidney not well visualized. Urinary bladder: Normal sonographic appearance. Bilateral bladder-urinejets observed. IMPRESSION: 1. Simple cyst, RIGHT kidney. 2. Previously described indeterminate lesion, LEFT kidney, not well seenon sonogram. Most likely proteinaceous/hemorrhagic cysts as described on prior CT. Recommend CTabdomen/pelvis follow-up in 6 -12 months to document stability. Electronically Signed By: LESLI WEST M.D 01/11/18 1632 Dictated On: 01/11/18 1619 Interpreted By: LESLI WEST M.D Transcribed On: 01/11/18 1619 - [facility] us Shaw Shafer MD SCANNING Zita salcedo Result * ULTRASOUND GENERIC (01/11/2018 4:07 PM CDT) Anatomical Region Laterality Modality Other 01/11/2018 4:07 PM CDT 01/11/2018 4:07 PM CDT Narrative 01/11/2018 4:20 PM CDT [facility] ?? [facility] [employer] ?? [place], [place] ? Patient Name: YOANDY SALINAS Date of : 1940 ?? Med Rec #: [id number] ??Age/Sex: 77/F ?Pt. Location: US ?? Attending Provider: SHAW GLOVER MD ?? Ordering Provider: SHAW GLOVER MD ? Study Date Order Number Procedure ?? 01/11/18 [id number] US Transvaginal Non OB ? Signed ? EXAMINATION: Complete pelvic sonogram (non-obstetric) with transvaginal ultrasound ? CLINICAL HISTORY: 77 years female with history of indeterminate right ovarian cyst discovered on CT ?? 6 ??Para 6 LMP= 20 years ago. Postmenopausal. ? COMPARISON: 12/30/2017. ? TECHNIQUE: Ultrasound examination of the pelvis was performed utilizing transabdominal and transvaginal approach to assess grayscale appearance, color doppler flow, and spectral waveform characteristics. ? FINDINGS: ?? Uterus: 4.8 x 2.5 x 3.8 cm. No masses. ?? Endometrial stripe: 4 mm in thickness. ?? Cervix: ??Nabothian cysts. ? Right ovary: 4.1 x 2.7 x 3.4 cm. Heterogeneous echogenicity. Normal blood flow and spectral analysis. No definitive simple anechoic cysts. ? Left ovary: Not visualized. ? Other findings: No free fluid is seen within the pelvis. ?? Visible bladder not adequately distended. ? IMPRESSION: ?? 1. Heterogeneous enlarged right ovary/adnexal mass, 4 cm. No evidence of simple cysts. Consider OB/ [employer] MACH[employer] SETTER surgical consultation. ? Electronically Signed By: LESLI WEST M.D 01/11/18 1616 ? Dictated On: 01/11/18 1607 ?? Interpreted By: LESLI WEST M.D ?? Transcribed On: 01/11/18 1607 - [facility] ?? Procedure Note Marc Cruz MD - 05/05/[address] Patient Name: YOANDY SALINAS Date of : 1940 Med Rec #: [id number] Age/Sex: 77/F Pt. Location: US Attending Provider: SHAW GLOVER MD Ordering Provider: SHAW GLOVER MD Study Date Order Number Procedure 01/11/18 [id number] US Transvaginal Non OB Signed EXAMINATION: Complete pelvic sonogram (non-obstetric) with transvaginalultrasound CLINICAL HISTORY: 77 years female with history of indeterminate rightovarian cyst discovered on CT 6 Para 6 LMP= 20 years ago. Postmenopausal. COMPARISON: 12/30/2017. TECHNIQUE: Ultrasound examination of the pelvis was performed utilizingtransabdominal and transvaginal approach to assess grayscale appearance, color doppler flow,and spectral waveform characteristics. FINDINGS: Uterus: 4.8 x 2.5 x 3.8 cm. No masses. Endometrial stripe: 4 mm in thickness. Cervix: Nabothian cysts. Right ovary: 4.1 x 2.7 x 3.4 cm. Heterogeneous echogenicity. Normal bloodflow and spectral analysis. No definitive simple anechoic cysts. Left ovary: Not visualized. Other findings: No free fluid is seen within the pelvis. Visible bladder not adequately distended. IMPRESSION: 1. Heterogeneous enlarged right ovary/adnexal mass, 4 cm. No evidence ofsimple cysts. Consider OB/ [employer] AND [employer] MACHINE SETTER surgical consultation. Electronically Signed By: LESLI WEST M.D 01/11/18 1616 Dictated On: 01/11/18 1607 Interpreted By: LESLI WEST M.D Transcribed On: 01/11/18 1607 - [facility] us Shaw Shafer MD SCANNING Zita salcedo Result * ULTRASOUND GENERIC (01/11/2018 4:07 PM CDT) Anatomical Region Laterality Modality Other 01/11/2018 4:07 PM CDT 01/11/2018 4:07 PM CDT Narrative 01/11/2018 4:20 PM CDT [facility] ?? [address] [place] [address] ?? [place] ? Patient Name: YOANDY SALINAS Date of : 1940 ?? Med Rec #: [id number] ??Age/Sex: 77/F ?Pt. Location: US ?? Attending Provider: SHAW GLOVER MD ?? Ordering Provider: SHAW GLOVER MD ? Study Date Order Number Procedure ?? 01/11/18 [id number] US Transvaginal Non OB ? Signed ? EXAMINATION: Complete pelvic sonogram (non-obstetric) with transvaginal ultrasound ? CLINICAL HISTORY: 77 years female with history of indeterminate right ovarian cyst discovered on CT ?? 6 ??Para 6 LMP= 20 years ago. Postmenopausal. ? COMPARISON: 12/30/2017. ? TECHNIQUE: Ultrasound examination of the pelvis was performed utilizing transabdominal and transvaginal approach to assess grayscale appearance, color doppler flow, and spectral waveform characteristics. ? FINDINGS: ?? Uterus: 4.8 x 2.5 x 3.8 cm. No masses. ?? Endometrial stripe: 4 mm in thickness. ?? Cervix: ??Nabothian cysts. ? Right ovary: 4.1 x 2.7 x 3.4 cm. Heterogeneous echogenicity. Normal blood flow and spectral analysis. No definitive simple anechoic cysts. ? Left ovary: Not visualized. ? Other findings: No free fluid is seen within the pelvis. ?? Visible bladder not adequately distended. ? IMPRESSION: ?? 1. Heterogeneous enlarged right ovary/adnexal mass, 4 cm. No evidence of simple cysts. Consider OB/ [employer] MACHINE SETTER surgical consultation. ? Electronically Signed By: LESLI WEST M.D 01/11/18 1616 ? Dictated On: 01/11/18 1607 ?? Interpreted By: LESLI WEST M.D ?? Transcribed On: 01/11/18 1607 - [facility] ?? Procedure Note Marc Cruz MD - 05/04/[address] Patient Name: YOANDY SALINAS Date of : 1940 Med Rec #: [id number] Age/Sex: 77/F Pt. Location: US Attending Provider: SHAW GLOVER MD Ordering Provider: SHAW GLOVER MD Study Date Order Number Procedure 01/11/18 [id number] US Transvaginal Non OB Signed EXAMINATION: Complete pelvic sonogram (non-obstetric) with transvaginalultrasound CLINICAL HISTORY: 77 years female with history of indeterminate rightovarian cyst discovered on CT 6 Para 6 LMP= 20 years ago. Postmenopausal. COMPARISON: 12/30/2017. TECHNIQUE: Ultrasound examination of the pelvis was performed utilizingtransabdominal and transvaginal approach to assess grayscale appearance, color doppler flow,and spectral waveform characteristics. FINDINGS: Uterus: 4.8 x 2.5 x 3.8 cm. No masses. Endometrial stripe: 4 mm in thickness. Cervix: Nabothian cysts. Right ovary: 4.1 x 2.7 x 3.4 cm. Heterogeneous echogenicity. Normal bloodflow and spectral analysis. No definitive simple anechoic cysts. Left ovary: Not visualized. Other findings: No free fluid is seen within the pelvis. Visible bladder not adequately distended. IMPRESSION: 1. Heterogeneous enlarged right ovary/adnexal mass, 4 cm. No evidence ofsimple cysts. Consider OB/ T[employer] AND [employer] MACHINE SETTER surgical consultation. Electronically Signed By: LESLI WEST M.D 01/11/18 1616 Dictated On: 01/11/18 1607 Interpreted By: LESLI WEST M.D Transcribed On: 01/11/18 1607 - [facility] us Shaw Shafer MD SCANNING Zita salcedo Result documented in this encounter Visit Diagnoses Not on filedocumented in this encounter
--- OUTSIDE RECORDS SUMMARY | 2024-07-15 03:09 | XMS_ITS | Encounter Summary ---
Author Organization [facility] Address [address] [place] [address]. [place] [address] [place] [address] Care Team Providers Care Heel Sprayer First Name Role Phone Orlando Cortez MD Primary Care Provider [phone] Encounter Details Date Type Department Care Team (Late st Contact Info) Description 02/09/2017 Abstract [facility] [address] [place] [address] Orlando Cortez MD [address] [place] [phone] Social History Tobacco Use Types Packs/Day [...] encounter Visit Diagnoses Diagnosis Encounter for screening mammogram for malignant neoplasm of breast Other screening mammogram documented in this encounter Care Teams Heel Sprayer First Relationship Specialty Start Date End Date Orlando Cortez MD [address] [place] [phone] PCP - General FAMILY PRACTICE 06/27/18 documented as of this encounter
--- OUTSIDE RECORDS SUMMARY | 2024-07-15 03:09 | XMS_ITS | Encounter Summary ---
Author Organization [facility] Address [address] [place] [address]. [place] [address] [place] [address] Care Team Providers Care Channel Rougher Name Role Phone Orlando Cortez MD Primary Care Provider [phone]- [phone] Encounter Details Date Type Department Care Team (Late st Contact Info) Description 06/03/[address] [facility] [address] [place] [address] Francisco Valentine MD [address] [place] [phone] Social History Tobacco Use Types Packs/Day [...] of this encounter Visit Diagnoses Diagnosis Other amnesia documented in this encounter Care Teams Channel Rougher Relationship Specialty Start Date End Date Orlando Cortez MD [address] [place] [phone] PCP - General FAMILY PRACTICE 06/27/18 documented as of this encounter
--- OUTSIDE RECORDS SUMMARY | 2024-07-15 03:09 | XMS_ITS | Encounter Summary ---
Author Organization [facility] Address [facility] [place] [address] [place] [address] Care Team Providers Care Piano Maker Name Role Phone Unavailable Primary Care Provider Unavailabl e Encounter Details Date Type Department Care Team (Latest Contact Info) Description 10/20/2016 Abstract [facility] Maximo Lara MD [address] [place] [address] Social History Tobacco Use Types Packs/Day Years [...]
--- OUTSIDE RECORDS SUMMARY | 2024-07-15 03:09 | XMS_ITS | Encounter Summary ---
Author Organization [facility] Address [facility] [place] [address] [place] [address] Care Team Providers Care Reproduction Machine Loader Name Role Phone Unavailable Primary Care Provider Unavailabl e Encounter Details Date Type Department Care Team (Late st Contact Info) Description 04/13/2016 Abstract [facility] [address] [place] [phone] Stephan Barreto FNP-BC [address] [place] [address] Social History Tobacco Use Types Packs/Day Years Used Date Smoking Tobacco: Never Assessed Comments Unknown Sex and Gender Information Value Date Recorded Sex Assigned at Not on file Legal Sex Female 6:36 PM CDT Gender Identity Not on file Sexual Orientation Not on file documented as of this encounter Progress Notes * RADHA Hurtado - 04/13/2016 10:00 AM CDT Referred By / Reason Patient was referred by Primary Care Physician Name: Dr. Valentine Reason: Chief Complaint Chief Complaint: The patient presents to the office today with lumbar spine. History of Present Illness HPI: Patient returns to clinic today in follow up for her back and neck pain. She had a lumbar MRI and is here for results. She has had a history of low back pain. She now describes tingling and numbness in her RIGHT 3rd and 4th fingers. She reports radiating pain from her RIGHT shoulder to her neck. She has night pain that keeps her awake. She reports she can't get comfortable due to her neck and back. She walks with a cane due to balance. Review of Systems See HPI for pertinent positives. Active Problems 1. Aftercare following hip joint replacement surgery (V54.81,V43.64) (Z47.1,Z96.649) 2. Cervical pain (723.1) (M54.2) 3. Chronic right hip pain (719.45,338.29) (M25.551,G89.29) 4. Lumbar back pain (724.2) (M54.5) 5. Osteoarthritis of right hip (715.95) (M16.11) Past Medical History 1. History Of Hypercholesterolemia (V12.29) (Z86.39) Surgical History 1. History of Hip Replacement Right 2. History of Knee Surgery Left 3. History of Knee Surgery Right Social History ?? Former smoker (V15.82) (Z87.891) ?? No alcohol use ?? Primary language is Martiniquais ?? Retired Current Meds 1. Atorvastatin Calcium 10 MG Oral Tablet; Therapy: (Recorded:19Brr2040) to Recorded 2. Gabapentin CAPS; Therapy: (Recorded:83Vrg6490) to Recorded 3. Hydrocodone-Acetaminophen 7.5-325 MG Oral Tablet ([place]); 1- 2 Q 4 - 6 HRS PRN PAIN; Therapy: 70Lgk2787 to (Last Rx:48Ird4842) Ordered 4. Hydrocodone-Acetaminophen 7.5-325 MG Oral Tablet; TAKE 1 TABLET EVERY 6 HOURS NEEDED FOR PAIN; Therapy: 61Ivf5475 to (Evaluate:16Apr2016); Last Rx:16Mjx2557 Ordered Allergies 1. No Known Allergies Physical Exam Constitutional: alert and in no acute distress. Neurological:. the patient was oriented to person, place, and time. mood and affect were appropriate. Eyes: pupils were equal in size, round, reactive to light, with normal accommodation. ENT: hearing was normal. Pulmonary: no respiratory distress. EXAM today reveals negative Gama, negative Speeds, weakness, decreased sensation RIGHT 4th and 5th finger, neck stiffness with range of motion, positive straight leg raise, shoulder range of motion is stiff also Results/Data XRAYS today of her neck reveals osteoarthritis 3 - 4, 4 - 5. Findings: MRI was reviewed and discussed and reveals L4 - 5 spinal stenosis. Assessment 1. Lumbar radiculopathy, chronic (724.4) (M54.16) 2. Cervical radiculopathy (723.4) (M54.12) Plan Aftercare following hip joint replacement surgery 1. Hydrocodone-Acetaminophen 7.5-325 MG Oral Tablet ([place]); TAKE 1 TABLET EVERY 6 HOURS NEEDED FOR PAIN Cervical pain 2. XR Cervical Spine 3 Vw Routine; Status:Active; Requested for:13Apr2016; Cervical radiculopathy 3. Continue with our present treatment plan.; Status:Complete; Done: 13Apr2016 11:59AM I have her set up to see Dr. Campuzano. She'll return PRN for her back. She states she has had previous STONE by Dr. Quintana in [place]. Signatures Electronically signed by : JERRY Zapata; Apr 13 2016 12:00PM ELECTRICAL DESIGN TECHNICIAN (Author) documented in this encounter Plan of Treatment Not on file documented as of this encounter Procedures Procedure Name Priority Date/Time Associated Diagnosis Comments XR CERV SPINE 3V Routine 04/13/2016 1:42 PM CDT documented in this encounter Results * XR CERV SPINE 3V (04/13/2016 1:42 PM CDT) Anatomical Region Laterality Modality Spine Radiographic Mely ging 04/13/2016 1:42 PM CDT 04/13/2016 1:42 PM CDT Narrative 04/13/2016 1:48 PM CDT [facility] ?? [address] ?? [place], [place] ? Patient Name: YOANDY SALINAS Date of : 1940 ?? Med Rec #: [id number] ??Age/Sex: 75/F ?Pt. Location: ORTHO ?? Attending Provider: STEPHAN BARRETO ASSEMBLER [employer] ?? Ordering Provider: STEPHAN BARRETO NP ? Study Date Order Number Procedure ?? 04/13/16 [id number] XR Cervical Spine 3 Vws Routne ? Signed ? Examination: Radiographs cervical spine 3 views ? Exam time: 04/13/2016 ? Clinical history: Patient has numbness and tingling in the right hand and right fingers. ? Comparison: No priors. ? Technique: 3 views of the cervical spine ? Findings: Minimal scoliosis. Decrease in cervical lordosis with mild reversal of the curvature at the level of C4-5. There is minimal anterolisthesis of the vertebra C3 over C4 and C4 over C5. Minimal retrolisthesis of C5 over C6. ? The craniocervical relationship is unremarkable. ?? Prominent degenerative changes at the disc spaces including C3-4, more pronounced at C4-5 and especially C5-6 and C6/7. At these levels due to degenerative changes and spondylosis along with facet disease there is moderate to severe foraminal stenosis on both sides more on the right. ?? At the level of C7-T1 minimal anterolisthesis. ?? The facet joints are well maintained. ? No acute bony abnormalities. ? In the lung apex no active infiltrates. ? Please follow-up clinically. If the patient remain still symptomatic and further indicated cross- sectional studies preferentially MRI can be considered. ? IMPRESSION: ?? Loss of cervical lordosis with mild reversal of the curvature at the level of C4. ? Prominent degenerative changes at the endplates and disc spaces more pronounced at C4-5 C5-6 and C6 /7. ?? Significant foraminal narrowing suggested in the cervical spine along this segment C3-C7. There is also concern about narrowing of the central canal in particular at C5/6. ? Electronically Signed By: FORREST MCBRIDE MD 04/13/16 3465 ? Dictated On: 04/13/16 1342 ?? Interpreted By: FORREST MCBRIDE MD ?? Transcribed On: 04/13/16 1342 - INFCE ?? Procedure Note Marc Day MD - 05/04/[address] Patient Name: YOANDY SALINAS Date of : 1940 Med Rec #: [id number] Age/Sex: 75/F Pt. Location: ORTHO Attending Provider: STEPHAN BARRETO NP Ordering Provider: STEPHAN BARRETO NP Study Date Order Number Procedure 04/13/16 [id number] XR Cervical Spine 3 Vws Routne Signed Examination: Radiographs cervical spine 3 views Exam time: 04/13/2016 Clinical history: Patient has numbness and tingling in the right hand andright fingers. Comparison: No priors. Technique: 3 views of the cervical spine Findings: Minimal scoliosis. Decrease in cervical lordosis with mildreversal of the curvature at the level of C4-5. There is minimal anterolisthesis of the vertebra C3over C4 and C4 over C5. Minimal retrolisthesis of C5 over C6. The craniocervical relationship is unremarkable. Prominent degenerative changes at the disc spaces including C3-4, morepronounced at C4-5 and especially C5-6 and C6/7. At these levels due to degenerative changes andspondylosis along with facet disease there is moderate to severe foraminal stenosis on both sidesmore on the right. At the level of C7-T1 minimal anterolisthesis. The facet joints are well maintained. No acute bony abnormalities. In the lung apex no active infiltrates. Please follow-up clinically. If the patient remain still symptomatic andfurther indicated cross- sectional studies preferentially MRI can be considered. IMPRESSION: Loss of cervical lordosis with mild reversal of the curvature at thelevel of C4. Prominent degenerative changes at the endplates and disc spaces morepronounced at C4-5 C5-6 and C6 /7. Significant foraminal narrowing suggested in the cervical spine alongthis segment C3-C7. There is also concern about narrowing of the central canal in particular at C5/6. Electronically Signed By: FORREST MCBRIDE MD 04/13/16 1345 Dictated On: 04/13/16 1342 Interpreted By: FORREST MCBRIDE MD Transcribed On: 04/13/16 1342 - INF[facility] us Stephan Barreto AUTO SEAT COVER INSTALLER-BC GENERAL IMAGING Final Resu lt documented in this encounter Visit Diagnoses Not on filedocumented in this encounter
--- OUTSIDE RECORDS SUMMARY | 2024-07-15 03:09 | XMS_ITS | Encounter Summary ---
Author Organization [facility] Address [address] [place] [address]. [place] [address] [place] [address] Care Team Providers Care Account General Manager Name Role Phone Orlando Cortez MD Primary Care Provider [phone] Encounter Details Date Type Department Care Team (Late st Contact Info) Description 04/29/2017 Abstract [facility] [address] [facility] [place] [address] Maximo Lara MD [address] [place] [address] Social History Tobacco Use Types [...] as of this encounter Visit Diagnoses Diagnosis Strain of muscle, fascia and tendon of other parts of biceps, right arm, sequela documented in this encounter Care Teams Account General Manager Relationship Specialty Start Date End Date Orlando Cortez MD [address] [place] [phone] PCP - General FAMILY PRACTICE 06/27/18 documented as of this encounter
--- OUTSIDE RECORDS SUMMARY | 2024-07-15 03:09 | XMS_ITS | Encounter Summary ---
Author Organization [facility] Address [facility] [place] [address] [place] [address] Care Team Providers Care Chaperone Name Role Phone Unavailable Primary Care Provider Unavailabl e Encounter Details Date Type Department Care Team (Latest Contact Info) Description 02/24/2016 Abstract [facility] Maximo Lara MD [address] [place] [address] Social History Tobacco Use Types Packs/Day Years [...] Name Priority Date/Time Associated Diagnosis Comments XR PELVIS 1 OR 2 VIEWS Routine 02/24/2016 2:37 PM CDT documented in this encounter Results * XR PELVIS 1 OR 2 VIEWS (02/24/2016 2:37 PM CDT) Anatomical Region Laterality Modality Pelvis Radiographic Mely ging 02/24/2016 2:37 PM CDT 02/24/2016 2:37 PM CDT Narrative 02/24/2016 2:41 PM CDT [facility] ?? [address] ?? [place], [place] ? Patient Name: YOANDY SALINAS Date of : 1940 ?? Med Rec #: [id number] ??Age/Sex: 75/F ?Pt. Location: TEL ?? Attending Provider: MAXIMO LARA MD (TRACY) ?? Ordering Provider: MAXIMO LARA MD (TRACY) ? Study Date Order Number Procedure ?? 02/24/16 XR Pelvis AP ? Signed ? Examination: Intraoperative pelvis. ? Exam time: 1414 hours. ? Clinical history: Monitoring for arthroplasty. ? Comparison: 02/04/2016. ? Technique: AP crosstable view. ? Findings: No fracture, dislocation or other acute bony abnormality is identified. There are ?? stable moderate degenerative changes in the left hip. Acetabular and trial femoral components ?? of right hip arthroplasty are in place. Correlation with the intraprocedural findings is ?? required. ? IMPRESSION: ?? Right hip arthroplasty. Correlation with the intraprocedural findings required. ? Electronically Signed By: JUSTYNA LOBATO MD 02/24/16 1440 ? Dictated On: 02/24/16 1437 ?? Interpreted By: JUSTYNA LOBATO MD ?? Transcribed On: 02/24/16 1437 - INFCE ?? Procedure Note Marc Day MD - 05/05/[address] Patient Name: YOANDY SALINAS Date of : 1940 Med Rec #: [id number] Age/Sex: 75/F Pt. Location: TEL Attending Provider: MAXIMO LARA MD (TRACY) Ordering Provider: MAXIMO LARA MD (TRACY) Study Date Order Number Procedure 02/24/16 XR Pelvis AP Signed Examination: Intraoperative pelvis. Exam time: 1414 hours. Clinical history: Monitoring for arthroplasty. Comparison: 02/04/2016. Technique: AP crosstable view. Findings: No fracture, dislocation or other acute bony abnormality isidentified. There are stable moderate degenerative changes in the left hip. Acetabular andtrial femoral components of right hip arthroplasty are in place. Correlation with theintraprocedural findings is required. IMPRESSION: Right hip arthroplasty. Correlation with the intraprocedural findingsrequired. Electronically Signed By: JUSTYNA LOBATO MD 02/24/16 1440 Dictated On: 02/24/16 1437 Interpreted By: JUSTYNA LOBATO MD Transcribed On: 02/24/16 1437 - INF[facility] us Maximo Lara MD GENERAL IMAGING Final Result documented in this encounter Visit Diagnoses Not on filedocumented in this encounter
--- OUTSIDE RECORDS SUMMARY | 2024-07-15 03:09 | XMS_ITS | Encounter Summary ---
Author Organization [facility] Address [address] [place] [address]. [place] [address] [place] [address] Care Team Providers Care Faculty Research Physician Name Role Phone Orlando Cortez MD Primary Care Provider [phone] Encounter Details Date Type Department Care Team (Late st Contact Info) Description 04/17/[address] [facility] [place] [address] Orlando Cortez MD [address] [place] [phone] Social History Tobacco Use Types Packs/Day [...] colon documented in this encounter Care Teams Faculty Research Physician Relationship Specialty Start Date End Date Orlando Cortez MD [address] [place] [phone] PCP - General FAMILY PRACTICE 06/27/18 documented as of this encounter
--- OUTSIDE RECORDS SUMMARY | 2024-07-15 03:09 | XMS_ITS | Encounter Summary ---
Author Organization [facility] Address [address] [place] [address]. [place] [address] [place] [address] Care Team Providers Care International Tax Manager Name Role Phone Orlando Cortez MD Primary Care Provider [phone] Encounter Details Date Type Department Care Team (Late st Contact Info) Description 03/09/2016 Abstract [facility] [address] [place], [place] [id number] Magali Barreto, [facility] [address] [place] [address] [place] [address] Social History Tobacco Use Types Packs/Day Years [...] as of this encounter Visit Diagnoses Diagnosis Aftercare following joint replacement surgery Aftercare following joint replacement documented in this encounter Care Teams International Tax Manager Relationship Specialty Start Date End Date Orlando Cortez MD [address] [place] [phone] PCP - General FAMILY PRACTICE 06/27/18 documented as of this encounter
--- OUTSIDE RECORDS SUMMARY | 2024-07-15 03:09 | XMS_ITS | Encounter Summary ---
Author Organization [facility] Address [facility] [place] [address] [place] [address] Care Team Providers Care Fusing Furnace Loader Name Role Phone Unavailable Primary Care Provider Unavailabl e Encounter Details Date Type Department Care Team (Late st Contact Info) Description 04/06/2016 Abstract [facility] [address] [place] [id number] Stephan Barreto FNP-BC [address] [facility] [place] [address] Social History Tobacco Use Types Packs/Day Years Used Date Smoking Tobacco: Never Assessed Comments Unknown Sex and Gender Information Value Date Recorded Sex Assigned at Not on file Legal Sex Female 6:36 PM CDT Gender Identity Not on file Sexual Orientation Not on file documented as of this encounter Progress Notes * RADHA Hurtado - 04/06/2016 10:30 AM CDT Post-Op Yoandy Salinas is status post total hip replacement of the right hip on 02-24-16. HPI: The patient reports no excessive pain, no swelling, no fever, no nausea, no excessive bleeding, no calf swelling, no leg pain and no shortness of breath. The patient also reports using an assistive device for ambulation and weight- bearing as tolerated. Her main complaint is low back pain. She is using a cane due to her back and her balance problems. She reports back pain with ambulation and at night. PE: The surgical incision site was clean, dry and intact (the incision site was intact and had no drainage ). The surrounding skin findings included normal appearance and normal skin turgor. The hip demonstrates no warmth, no induration, no erythema, no ecchymosis, no swelling and no tenderness. ROM as expected given post-op status. Strength as expected given post-op status. Tests for DVT and compartment syndrome are both negative with soft and non-tender calves and no palpable cords. Peripheral neurovascular exam reveals intact sensation to light touch and intact gross motor function. EXAM of lumbar today reveals NVI, Positive straight leg raise on Left leg, Negative groin pain. Assessment: Post-op, the patient is doing well, has excellent pain control and is showing no signs of infection. Plan: Activity Restrictions: advance as tolerated and arthroplasty precautions reviewed. Done this visit: xray. To Do For Next Visit: xray. Follow up: 3 months. Orders 1. Hydrocodone-Acetaminophen 7.5-325 MG Oral Tablet ([place]); TAKE 1 TABLET EVERY 6 HOURS NEEDED FOR PAIN 2. XR Hip 2+ View Rt; Status:Active; Requested for:03Apr2016; 3. Continue with our present treatment plan.; Status:Complete; Done: 06Apr2016 4. You may continue or resume your normal level of activity.; Status:Complete; Done: 06Apr2016 5. Physical Therapy Referral Outpatient Right total hip replacement 8-15-16 3 times a week for 4 weeks Status: Need Information - Financial Authorization Requested for: 06Apr2016 6. MRI Lumbar Spine WO; Status:Need Information - Financial Authorization; Requested for:06Apr2016; 7. XR Lumbar Spine 2 to 3 View; Status:Active; Requested for:06Apr2016; Assessment 1. Aftercare following hip joint replacement surgery (V54.81,V43.64) (Z47.1,Z96.649) 2. Lumbar back pain (724.2) (M54.5) Results/Data XRAY today of lumbar reveals Degenerative changes with narrowing of Lumbar 2-3 and Lumbar 3-4 with mild lumbar scoliosis. Views: of the right hip. XRAY today reveals prosthetic in good alignment with no signs of loosening. Findings: Signatures Electronically signed by : JERRY Zapata; Apr 06 2016 11:51AM [employer] (Author) documented in this encounter Plan of Treatment Not on file documented as of this encounter Procedures Procedure Name Priority Date/Time Associated Diagnosis Comments XR PELVIS AP+RT HIP 1V Routine 04/06/2016 2:02 PM CDT IMAGE GENERIC Routine 04/06/2016 1:56 PM CDT documented in this encounter Results * XR PELVIS AP+RT HIP 1V (04/06/2016 2:02 PM CDT) Anatomical Region Laterality Modality Pelvis, Hip Radiographic Mely ging 04/06/2016 2:02 PM CDT 04/06/2016 2:02 PM CDT Narrative 04/06/2016 2:06 PM CDT [facility] ?? [facility] [employer] ?? [place], [place] ? Patient Name: YOANDY SALINAS Date of : 1940 ?? Med Rec #: [id number] ??Age/Sex: 75/F ?Pt. Location: ORTHO ?? Attending Provider: STEPHAN BARRETO NP ?? Ordering Provider: STEPHAN BARRETO NP ? Study Date Order Number Procedure ?? 04/06/16 [id number] XR Hip w Pelv Uni 1 Vw Rt ? Signed ? Exam: X-ray pelvis and right hip ? Comparison 02/24/2016 ? INDICATION: Follow-up right hip replacement. ? TECHNIQUE: One view of the lower half of the pelvis and a lateral view of the right hip. ? FINDINGS: Dual component right hip arthroplasty. No fracture, malalignment, or evidence of loosening. Stable osteoarthritis of the left hip. ? IMPRESSION: Right hip replacement. ? Electronically Signed By: SIVAN JEAN MD 04/06/16 1404 ? Dictated On: 04/06/16 140 ?? Interpreted By: SIVAN JEAN MD ?? Transcribed On: 04/06/16 140 - INFCE ?? Procedure Note Marc Day MD - 05/06/[address] Patient Name: YOANDY SALINAS Date of : 1940 Med Rec #: [id number] Age/Sex: 75/F Pt. Location: ORTHO Attending Provider: STEPHAN BARRETO NP Ordering Provider: STEPHAN BARRETO NP Study Date Order Number Procedure 04/06/16 [id number] XR Hip w Pelv Uni 1 Vw Rt Signed Exam: X-ray pelvis and right hip Comparison 02/24/2016 INDICATION: Follow-up right hip replacement. TECHNIQUE: One view of the lower half of the pelvis and a lateral view ofthe right hip. FINDINGS: Dual component right hip arthroplasty. No fracture,malalignment, or evidence of loosening. Stable osteoarthritis of the left hip. IMPRESSION: Right hip replacement. Electronically Signed By: SIVAN JEAN MD 04/06/161403 Dictated On: 04/06/161401 Interpreted By: SIVAN JEAN MD Transcribed On: 04/06/16 140 - INFCE us Stephan Barreto [employer] GENERAL IMAGING Final Resu lt * IMAGE GENERIC (04/06/2016 1:56 PM CDT) Anatomical Region Laterality Modality Other 04/06/2016 1:56 PM CDT 04/06/2016 1:56 PM CDT Narrative 04/06/2016 2:02 PM CDT [facility] ?? [address] [facility] ?? [place], [place] ? Patient Name: YOANDY SALINAS Date of : 1940 ?? Med Rec #: [id number] ??Age/Sex: 75/F ?Pt. Location: ORTHO ?? Attending Provider: STEPHAN BARRETO SIGN BUILDER ?? Ordering Provider: STEPHAN BARRETO NP ? Study Date Order Number Procedure ?? 04/06/[id number] XR Lumbar Spine 2 to 3 Views ? Signed ? Exam: Lumbar spine x-ray ? No comparison ? INDICATION: Lumbar pain ? TECHNIQUE: 3 views ? FINDINGS: Levoscoliosis. Multiple anterior and lateral osteophytes. Marked facet hypertrophy and sclerosis at the lower 3 levels. Approximately 6 mm of anterior positioning of L4 relative to L5 is likely due to the facet changes. Multilevel disc height reduction and endplate sclerosis. Some diffuse height reduction at L3 is probably old based on the scoliosis and degenerative changes. Mild concavity of the superior endplate of L4 is an age indeterminate finding. Rounded calcification projects over the right side of the sacrum and could be a calcified lymph node. ? IMPRESSION: Scoliosis and extensive degenerative changes. Possible age- indeterminate compression fracture superior endplate L4. ? Electronically Signed By: SIVAN JEAN MD 04/06/16 135 ? Dictated On: 04/06/16 1356 ?? Interpreted By: SIVAN JEAN MD ?? Transcribed On: 04/06/16 1356 - INFCE ?? Procedure Note Stephan Barreto, [employer] - 05/04/[address] Patient Name: YOANDY SALINAS Date of : 1940 Med Rec #: [id number] Age/Sex: 75/F Pt. Location: ORTHO Attending Provider: STEPHAN BARRETO NP Ordering Provider: STEPHAN BARRETO NP Study Date Order Number Procedure 04/06/16 [id number] XR Lumbar Spine 2 to 3 Views Signed Exam: Lumbar spine x-ray No comparison INDICATION: Lumbar pain TECHNIQUE: 3 views FINDINGS: Levoscoliosis. Multiple anterior and lateral osteophytes.Marked facet hypertrophy and sclerosis at the lower 3 levels. Approximately 6 mm of anteriorpositioning of L4 relative to L5 is likely due to the facet changes. Multilevel disc height reduction andendplate sclerosis. Some diffuse height reduction at L3 is probably old based on the scoliosis anddegenerative changes. Mild concavity of the superior endplate of L4 is an age indeterminatefinding. Rounded calcification projects over the right side of the sacrum and could be acalcified lymph node. IMPRESSION: Scoliosis and extensive degenerative changes. Possibleage- indeterminate compression fracture superior endplate L4. Electronically Signed By: SIVAN JEAN MD 04/06/16 1356 Dictated On: 04/06/16 1356 Interpreted By: SIVAN JEAN MD Transcribed On: 04/06/16 1356 - INFCE Stephan Barreto [employer] SCANNING Final Resu lt documented in this encounter Visit Diagnoses Not on filedocumented in this encounter
--- OUTSIDE RECORDS SUMMARY | 2024-07-15 03:09 | XMS_ITS | Encounter Summary ---
Author Organization [facility] Address [facility] [place] [address] [place] [address] Care Team Providers Care Sas Administrator Name Role Phone Unavailable Primary Care Provider Unavailabl e Encounter Details Date Type Department Care Team (Latest Contact Info) Description 05/05/2017 Abstract [facility] Maximo Lara MD [address] [place] [address] Social History Tobacco Use Types Packs/Day Years [...]
--- OUTSIDE RECORDS SUMMARY | 2024-07-15 03:09 | XMS_ITS | Encounter Summary ---
Author Organization [facility] Address [address] [place] [address]. [place] [address] [place] [address] Care Team Providers Care Mechanical Assembly Technician Name Role Phone Orlando Cortez MD Primary Care Provider [phone] Encounter Details Date Type Department Care Team (Late st Contact Info) Description 02/17/2016 Abstract [facility] [address] [facility] [place] [address] Maximo Lara MD [address] [place], [place] [id number] Social History Tobacco Use Types Packs/Day Years [...] as of this encounter Visit Diagnoses Diagnosis Personal history of other endocrine, nutritional and metabolic disease documented in this encounter Care Teams Mechanical Assembly Technician Relationship Specialty Start Date End Date Orlando Cortez MD [address] [place] [phone] PCP - General FAMILY PRACTICE 06/27/18 documented as of this encounter
--- OUTSIDE RECORDS SUMMARY | 2024-07-15 03:09 | XMS_ITS | Encounter Summary ---
Author Organization [facility] Address [facility] [place] [address] [place] [address] Care Team Providers Care Manager Oncology Name Role Phone Unavailable Primary Care Provider Unavailabl e Encounter Details Date Type Department Care Team (Latest Contact Info) Description 11/13/2016 Abstract [facility] Maximo Lara MD [address] [place] [address] Social History Tobacco Use Types Packs/Day Years [...]
--- OUTSIDE RECORDS SUMMARY | 2024-07-15 03:09 | XMS_ITS | Encounter Summary ---
Author Organization [facility] Address [facility] [facility] [place] [address] [place] [address] Care Team Providers Care Funeral Director And Embalmer Name Role Phone Unavailable Primary Care Provider Unavailabl e Encounter Details Date Type Department Care Team (Late st Contact Info) Description 10/14/2016 Abstract [facility] [address] [place] [phone] Maximo Lara MD [address] [place], [place] [id number] Social History Tobacco Use Types Packs/Day Years Used Date Smoking Tobacco: Never Assessed Comments Unknown Sex and Gender Information Value Date Recorded Sex Assigned at Not on file Legal Sex Female 6:36 PM CDT Gender Identity Not on file Sexual Orientation Not on file documented as of this encounter Progress Notes * Maximo Lara MD - 10/14/2016 3:15 PM CDT Chief Complaint Chief Complaint: The patient presents to the office today with RIGHT shoulder pain. History of Present Illness HPI: Patient comes to clinic today with complaints of RIGHT shoulder pain. She reports her pain is chronic. She denies any injury. She has night symptoms that keep her awake. She also has pain with activity. She reports some weakness. She is taking Voltaren. Review of Systems See HPI for pertinent positives. Active Problems 1. Aftercare following hip joint replacement surgery (V54.81,V43.64) (Z47.1,Z96.649) 2. Cervical pain (723.1) (M54.2) 3. Cervical radiculopathy (723.4) (M54.12) 4. Chronic right hip pain (719.45,338.29) (M25.551,G89.29) 5. Chronic right shoulder pain (719.41,338.29) (M25.511,G89.29) 6. Lumbar back pain (724.2) (M54.5) 7. Lumbar radiculopathy, chronic (724.4) (M54.16) 8. Osteoarthritis of right hip (715.95) (M16.11) 9. Status post orthopedic surgery, follow-up exam (V67.09) (Z09) Past Medical History 1. History Of Hypercholesterolemia (V12.29) (Z86.39) Surgical History 1. History of Hip Replacement Right 2. History of Knee Surgery Left 3. History of Knee Surgery Right Social History ?? Former smoker (V15.82) (Z87.891) ?? No alcohol use ?? Primary language is Liberian ?? Retired Current Meds 1. Atorvastatin Calcium 10 MG Oral Tablet; Therapy: (Recorded:83Csz5615) to Recorded 2. Atorvastatin Calcium 40 MG Oral Tablet; Therapy: 34Lks0848 to Recorded 3. Azithromycin 250 MG Oral Tablet; Therapy: 18May2016 to Recorded 4. Diclofenac Sodium 50 MG Oral Tablet Delayed Release; Take 1 tablet twice daily; Therapy: 37Yme1154 to (Evaluate:39Cjq9726) Requested for: 42Hbm8364; Last Rx:18Kqu8940 Ordered 5. Gabapentin CAPS; Therapy: (Recorded:84Prq6885) to Recorded 6. Hydrocodone-Acetaminophen 7.5-325 MG Oral Tablet ([place]); 1- 2 Q 4 - 6 HRS PRN PAIN; Therapy: 28Yyg2074 to (Last Rx:88Vuj5778) Ordered 7. Hydrocodone-Acetaminophen 7.5-325 MG Oral Tablet ([place]); TAKE 1 TABLET EVERY 6 HOURS NEEDED FOR PAIN; Therapy: 49Hha7736 to (Evaluate:89Vbw7360); Last Rx:53Lni4357 Ordered 8. Ibuprofen 600 MG Oral Tablet; Therapy: 73Ycy9008 to Recorded 9. PEG-3350/Electrolytes 236 GM Oral Solution Reconstituted; Therapy: 35Jwv6767 to Recorded 10. Raloxifene HCl - 60 MG Oral Tablet; Therapy: 06Lzz7708 to Recorded 11. Sertraline HCl - 50 MG Oral Tablet; Therapy: 10Aug2016 to Recorded Allergies 1. No Known Allergies Physical Exam Constitutional: alert and in no acute distress. Neurological:. the patient was oriented to person, place, and time. mood and affect were appropriate. Eyes: pupils were equal in size, round, reactive to light, with normal accommodation. ENT: hearing was normal. Pulmonary: no respiratory distress. Skin: no injuries or skin lesions on the right upper extremity. Right Shoulder: EXAM today reveals mild decreased internal rotation, weak abduction, AC tenderness,negative Speeds, NVI, symmetric neck stiffness. Results/Data XRAYS Today of her RIGHT Shoulder reveals AC arthritis with moderate glenohumeral osteoarthritis and Type II acromion Findings: Assessment 1. 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 Osteoarthritis of right glenohumeral joint (715.91) (M19.011) 3. 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 Continue with our present treatment plan.; Status:Complete; Done: 14Oct2016 03:55PM Chronic right shoulder pain 2. XR Shoulder 3 View Rt; Status:Active; Requested for:12Oct2016; I have recommended MRI to rule out rotator cuff tear. She'll start PT and I have provided her a script. She'll return after MRI. Signatures Electronically signed by : Maximo Lara M.D.; Oct 14 2016 3:56PM POLICE COMMUNICATIONS DISPATCHER (Author) Electronically signed by : Maximo Lara M.D.; 2016 3:28PM POLICE COMMUNICATIONS DISPATCHER (Author) documented in this encounter Plan of Treatment Not on file documented as of this encounter Procedures Procedure Name Priority Date/Time Associated Diagnosis Comments MRI SHOULDER RT WO CON Routine 10/22/2016 7:15 PM CDT XR SHOULDER RT 3V Routine 10/14/2016 5:4 6 PM CDT documented in this encounter Results * MRI SHOULDER RT WO CON (10/22/2016 7:15 PM CDT) Anatomical Region Laterality Modality Shoulder Magnetic Resonan ce 10/22/2016 7:15 PM CDT 10/22/2016 7:15 PM CDT Narrative 10/22/2016 7:32 PM CDT [facility] ?? [address] ?? [place], [place] ? Patient Name: YOANDY SALINAS Date of : 1940 ?? Med Rec #: [id number] ??Age/Sex: 76/F ?Pt. Location: MRI ?? Attending Provider: MAXIMO LARA MD (TRACY) ?? Ordering Provider: MAXIMO LARA MD (TRACY) ? Study Date Order Number Procedure ?? 10/22/16 [id number] MRI Shoulder WO Rt ? Signed ? Date: 10/22/2016 3:00 PM ? Exam: MRI Shoulder WO Rt ? Comparison: Right shoulder radiography dated 10/14/2016. ? Technique: Multiplanar unenhanced sequencing was obtained with an MRI shoulder protocol. ? History: 6 months of right shoulder pain. No known injury. Diagnosis of nontraumatic complete tear rotator cuff. ? Findings: There is a type II acromion without anterior or lateral downsloping. There is moderate AC joint arthritis. There is fluid and inflammation within the AC joint. There is slight impingement upon the supraspinatus due to the distal clavicle. The coracoclavicular ligaments and coracoacromial ligament are intact. ? There is tendinosis of the supraspinatus and infraspinatus. There are mild to moderate grade partial articular sided tears of the supraspinatus. There is a small near full-thickness tear anterior supraspinatus tendon insertion as seen on series 4 image 7. There are mild partial articular sided tears of the infraspinatus. There is considerable atrophy of the teres minor, but the teres minor appears intact. The subscapularis is grossly intact although with tendinosis. ? The long head biceps tendon is within the bicipital groove. The biceps tendon perches upon the lesser tuberosity as seen on series 3 image 17. This indicates transverse fibers failure of the subscapularis across the bicipital groove. The biceps labral anchor is intact. There is a partial undersurface tear of the superior labrum as seen on series 4 image 11. ?? The anterior and posterior labrum appear grossly intact although with slight degenerative signal. There is a small linear tear of the inferior labrum as seen on series 4 image 13. ? There is mild to moderate glenohumeral joint arthritis with a spur of the inferior medial humeral head as seen on series 4 image 14. There is a small glenohumeral joint effusion. There is scant fluid in the subdeltoid bursa and subacromial bursa likely emanating through the anterior supraspinatus tear. There are no bone marrow abnormalities to indicate fracture or contusion. ? Impression: ?? 1. Tendinosis of the supraspinatus, infraspinatus and subscapularis. Transverse fibers failure across the bicipital groove regarding the subscapularis. ?? 2. Mild to moderate grade partial articular sided tears of the supraspinatus. Focal full-thickness versus near full-thickness tear involving the anterior supraspinatus insertion. ?? 3. Arthritis of the glenohumeral joint and AC joint. Inflammation and fluid within the AC joint. ?? 4. Degenerative signal in the labrum. Mild tears of the superior labrum and inferior labrum. ? Electronically Signed By: CELESTE CABRAL MD 10/22/161926 ? Dictated On: 10/22/161914 ?? Interpreted By: CELESTE CABRAL MD ?? Transcribed On: 10/22/161914 - [facility] ?? Procedure Note Maximo Lara MD - 05/05/[address] Patient Name: YOANDY SALINAS Date of : 1940 Med Rec #: [id number] Age/Sex: 76/F Pt. Location: MRI Attending Provider: MAXIMO LARA MD (TRACY) Ordering Provider: MAXIMO LARA MD (TRACY) Study Date Order Number Procedure 10/22/16 [id number] MRI Shoulder WO Rt Signed Date: 10/22/2016 3:00 PM Exam: MRI Shoulder WO Rt Comparison: Right shoulder radiography dated 10/14/2016. Technique: Multiplanar unenhanced sequencing was obtained with an MRIshoulder protocol. History: 6 months of right shoulder pain. No known injury. Diagnosis ofnontraumatic complete tear rotator cuff. Findings: There is a type II acromion without anterior or lateraldownsloping. There is moderate AC joint arthritis. There is fluid and inflammation within the AC joint.There is slight impingement upon the supraspinatus due to the distal clavicle. Thecoracoclavicular ligaments and coracoacromial ligament are intact. There is tendinosis of the supraspinatus and infraspinatus. There aremild to moderate grade partial articular sided tears of the supraspinatus. There is a small nearfull-thickness tear anterior supraspinatus tendon insertion as seen on series 4 image 7. Thereare mild partial articular sided tears of the infraspinatus. There is considerable atrophyof the teres minor, but the teres minor appears intact. The subscapularis is grossly intactalthough with tendinosis. The long head biceps tendon is within the bicipital groove. The bicepstendon perches upon the lesser tuberosity as seen on series 3 image 17. This indicates transversefibers failure of the subscapularis across the bicipital groove. The biceps labral anchor isintact. There is a partial undersurface tear of the superior labrum as seen on series 4 image 11. The anterior and posterior labrum appear grossly intact although withslight degenerative signal. There is a small linear tear of the inferior labrum as seen on series 4image 13. There is mild to moderate glenohumeral joint arthritis with a spur of theinferior medial humeral head as seen on series 4 image 14. There is a small glenohumeral jointeffusion. There is scant fluid in the subdeltoid bursa and subacromial bursa likely emanatingthrough the anterior supraspinatus tear. There are no bone marrow abnormalities to indicatefracture or contusion. Impression: 1. Tendinosis of the supraspinatus, infraspinatus and subscapularis.Transverse fibers failure across the bicipital groove regarding the subscapularis. 2. Mild to moderate grade partial articular sided tears of thesupraspinatus. Focal full-thickness versus near full-thickness tear involving the anterior supraspinatusinsertion. 3. Arthritis of the glenohumeral joint and AC joint. Inflammation andfluid within the AC joint. 4. Degenerative signal in the labrum. Mild tears of the superior labrumand inferior labrum. Electronically Signed By: CELESTE CABRAL MD 10/22/161926 Dictated On: 10/22/161914 Interpreted By: CELESTE CABRAL MD Transcribed On: 10/22/161914 - [facility] us Maximo Lara MD MRI Final Result * XR SHOULDER RT 3V (10/14/2016 5:46 PM CDT) Anatomical Region Laterality Modality Shoulder Radiographic Mely ging 10/14/2016 5:46 PM CDT 10/14/2016 5:46 PM CDT Narrative 10/14/2016 6:09 PM CDT [facility] ?? [address] ?? [place], [place] ? Patient Name: YOANDY SALINAS Date of : 1940 ?? Med Rec #: [id number] ??Age/Sex: 75/F ?Pt. Location: ORTHO ?? Attending Provider: MAXIMO LARA MD (TRACY) ?? Ordering Provider: MAXIMO LARA MD (TRACY) ? Study Date Order Number Procedure ?? 10/14/16 [id number] XR Shoulder 3 Views Rt ? Signed ? Examination: X-ray right shoulder, 3 views. ? Exam time: 10/14/2016 ? Clinical history: Right shoulder pain that radiates upward to the right side of neck and down arm. Numbness in the fourth/fifth fingers for the past 3-4 months. Comparison: None ? Technique: Grashey, scapular Y, and axillary views of right shoulder obtained. ? Findings: ?? No acute fracture. No dislocation. No evidence of bone destruction or erosive arthropathy. ? IMPRESSION: ?? No acute fracture or dislocation. ? Electronically Signed By: LESLI WEST M.D 10/14/16 1751 ? Dictated On: 10/14/161745 ?? Interpreted By: LESLI WEST M.D ?? Transcribed On: 10/14/161745 - [facility] ?? Procedure Note Marc Day MD - 05/04/[address] Patient Name: YOANDY SALINAS Date of : 1940 Med Rec #: [id number] Age/Sex: 75/F Pt. Location: ORTHO Attending Provider: MAXIMO LARA MD (TRACY) Ordering Provider: MAXIMO LARA MD (TRACY) Study Date Order Number Procedure 10/14/16 [id number] XR Shoulder 3 Views Rt Signed Examination: X-ray right shoulder, 3 views. Exam time: 10/14/2016 Clinical history: Right shoulder pain that radiates upward to the rightside of neck and down arm. Numbness in the fourth/fifth fingers for the past 3-4 months. Comparison:None Technique: Grashey, scapular Y, and axillary views of right shoulderobtained. Findings: No acute fracture. No dislocation. No evidence of bone destruction orerosive arthropathy. IMPRESSION: No acute fracture or dislocation. Electronically Signed By: LESLI WEST M.D 10/14/16 175 Dictated On: 10/14/16 174 Interpreted By: LESLI WEST M.D Transcribed On: 10/14/16 174 - [facility] us Maximo Lara MD GENERAL IMAGING Final Result documented in this encounter Visit Diagnoses Not on filedocumented in this encounter
--- OUTSIDE RECORDS SUMMARY | 2024-07-15 03:09 | XMS_ITS | Encounter Summary ---
Author Organization [facility] Address [address] [place] [address]. [place], [place] [address] [place] [address] Care Team Providers Care Outboard Motorboat Rigger Name Role Phone Unavailable Primary Care Provider Unavailabl e Encounter Details Date Type Department Care Team (Latest Contact Info) Description 02/09/2017 Abstract [facility] Medical [facility] Social History Tobacco Use [...]
--- OUTSIDE RECORDS SUMMARY | 2024-07-15 03:09 | XMS_ITS | Encounter Summary ---
Author Organization [facility] Address [facility] [place] [address] [place] [address] Care Team Providers Care Full Stack Java Developer Name Role Phone Unavailable Primary Care Provider Unavailabl e Encounter Details Date Type Department Care Team (Late st Contact Info) Description 10/27/2016 Abstract [facility] [address] [place] [phone] Maximo Lara MD [address] [place], [place] [phone] Social History Tobacco Use Types Packs/Day Years Used Date Smoking Tobacco: Never Assessed Comments Unknown Sex and Gender Information Value Date Recorded Sex Assigned at Not on file Legal Sex Female 6:36 PM CDT Gender Identity Not on file Sexual Orientation Not on file documented as of this encounter Progress Notes * Maximo Lara MD - 10/27/2016 11:00 AM CDT Chief Complaint Chief Complaint: The patient presents to the office today with RIGHT shoulder pain. History of Present Illness HPI: Patient comes to clinic today in follow up for her RIGHT shoulder pain. She had MRI and is here for results. She does report that her RIGHT 3 through 5th fingers are numb and that its worsening.She has problems with grasping and griping. PREVIOUS HISTORY 10-14-2016 Patient comes to clinic today with complaints [...] Chronic right shoulder pain (719.41,338.29) (M25.511,G89.29) 7. Lumbar back pain (724.2) (M54.5) 8. Lumbar radiculopathy, chronic (724.4) (M54.16) 9. Nontraumatic complete tear of right rotator cuff (727.61) (M75.121) 10. Osteoarthritis of right glenohumeral joint (715.91) (M19.011) 11. Osteoarthritis of right hip (715.95) (M16.11) 12. Status post orthopedic surgery, follow-up exam (V67.09) (Z09) Past Medical History 1. History Of Hypercholesterolemia (V12.29) (Z86.39) Surgical History 1. History of Hip Replacement Right 2. History of Knee Surgery Left 3. History of Knee Surgery Right Social History ?? Former smoker (V15.82) (Z87.891) ?? No alcohol use ?? Primary language is Turkish ?? Retired Current Meds 1. Atorvastatin Calcium 10 MG Oral Tablet; Therapy: (Recorded:46Zgb3220) to Recorded 2. Atorvastatin Calcium 40 MG Oral Tablet; Therapy: 83Hfs7710 to Recorded 3. Azithromycin 250 MG Oral Tablet; Therapy: 18May2016 to Recorded 4. Diclofenac Sodium 50 MG Oral Tablet Delayed Release; Take 1 tablet twice daily; Therapy: 96Nxa4160 to (Evaluate:19Qze2952) Requested for: 80Gxc4285; Last Rx:66Nhg4677 Ordered 5. Gabapentin CAPS; Therapy: (Recorded:80Fkc5110) to Recorded 6. Hydrocodone-Acetaminophen 7.5-325 MG Oral Tablet ([place]); 1- 2 Q 4 - 6 HRS PRN PAIN; Therapy: 35Ckx7903 to (Last Rx:99Hqu8943) Ordered 7. Hydrocodone-Acetaminophen 7.5-325 MG Oral Tablet ([place]); TAKE 1 TABLET EVERY 6 HOURS NEEDED FOR PAIN; Therapy: 38Yls9815 to (Evaluate:45Tyu5230); Last Rx:85Mhj9557 Ordered 8. Ibuprofen 600 MG Oral Tablet; Therapy: 69Fwk6942 to Recorded 9. PEG-3350/Electrolytes 236 GM Oral Solution Reconstituted; Therapy: 21Vjx2772 to Recorded 10. Raloxifene HCl - 60 MG Oral Tablet; Therapy: 41Ipz4594 to Recorded 11. Sertraline HCl - 50 MG Oral Tablet; Therapy: 87Jtz0906 to Recorded Allergies 1. No Known Allergies [...] upper extremity. Right Shoulder: EXAM today reveals RIGHT shoulder range of motion improving. EXAM of her RIGHT hand reveals decreased sensation RIGHT 3 through 5th fingers, positive tinels at elbow Results/Data MRI of her RIGHT shoulder reveals partial cuff tear Procedure Procedure: Injection of the right subacromial space. Indication: rotator cuff tear. Were discussed with the patient. Verbal consent was obtained prior to the procedure. Alcohol and betadine was used to prep the area. ethyl chloride spray was used as a topical anesthetic. A 22-gauge and 1.5 inch was used to inject 4 mL of 1% Lidocaine and 1 mL methylprednisolone 80 mg/mL. A bandage was applied. Post-Procedure: the patient tolerated the procedure well. Complications: there were no complications. Assessment 1. Incomplete tear of right rotator cuff (840.4) (M75.111) 2. Ulnar nerve compression, right (354.2) (G56.21) Plan Ulnar nerve compression, right 1. Continue with our present treatment plan.; Status:Complete; Done: 27Oct2016 11:50AM I have recommended nerve studies. She'll return in 4 weeks. She'll continue PT. Signatures Electronically signed by : Maximo Lara M.D.; Oct 27 2016 11:50AM [address]PUTY COURT (Author) Electronically signed by : Maximo Lara M.D.; Oct 27 2016 11:52AM [address]PUT[address] COURT (Author) documented in this encounter Plan of Treatment Not on file documented as of this encounter Visit Diagnoses Not on filedocumented in this encounter
--- OUTSIDE RECORDS SUMMARY | 2024-07-15 03:09 | XMS_ITS | Encounter Summary ---
Author Organization [facility] Address [address] [place] [address]. [place] [address] [place] [address] Care Team Providers Care Artist Woodblock Name Role Phone Orlnado Cortez MD Primary Care Provider [phone] Encounter Details Date Type Department Care Team (Late st Contact Info) Description 04/30/2017 Abstract [facility] Diagnostic Imaging [address] [place] [address] Maximo Lara MD [address] [place], [place] [phone] Social History Tobacco Use Types Packs/Day Years [...] this encounter Visit Diagnoses Diagnosis Pain in right elbow Pain in joint, upper arm documented in this encounter Care Teams Artist Woodblock Relationship Specialty Start Date End Date Orlando Cortez MD [address] [place] [phone] PCP - General FAMILY PRACTICE 06/27/18 documented as of this encounter
--- OUTSIDE RECORDS SUMMARY | 2024-07-15 03:09 | XMS_ITS | Encounter Summary ---
Author Organization [facility] Address [facility] [place] [address] [place] [address] Care Team Providers Care Angle Dozer Operator Name Role Phone Orlando Cortez MD Primary Care Provider [phone] Encounter Details Date Type Department Care Team (Late st Contact Info) Description 04/24/2016 Abstract [facility] Diagnostic Imaging [address] [place] [address] Bunny Campuzano III, MD [facility] [place] [address] Social History Tobacco Use Types Packs/Day Years [...] as of this encounter Visit Diagnoses Diagnosis Procedure and treatment not carried out, unspecified reason documented in this encounter Care Teams Angle Dozer Operator Relationship Specialty Start Date End Date Orlando Cortez MD [address] [place] [phone] PCP - General FAMILY PRACTICE 06/27/18 documented as of this encounter
--- OUTSIDE RECORDS SUMMARY | 2024-07-15 03:09 | XMS_ITS | Encounter Summary ---
Author Organization [facility] Address [facility] [place] [address] [place] [address] Care Team Providers Care Access Manager Name Role Phone Orlando Cortez MD Primary Care Provider [phone] Encounter Details Date Type Department Care Team (Late st Contact Info) Description 10/27/2016 Abstract [facility] Diagnostic Imaging [address] [place] [address] Maximo Lara MD [address] [place], [place] [phone] Social History Tobacco Use Types Packs/Day Years [...] as of this encounter Visit Diagnoses Diagnosis Incomplete tear of right rotator cuff Partial tear of rotator cuff documented in this encounter Care Teams Access Manager Relationship Specialty Start Date End Date Orlando Cortez MD [address] [place] [phone] PCP - General FAMILY PRACTICE 06/27/18 documented as of this encounter
--- OUTSIDE RECORDS SUMMARY | 2024-07-15 03:09 | XMS_ITS | Encounter Summary ---
Author Organization [facility] Address Replaced by [facility] [place] [address] [place] [address] Care Team Providers Care Middleware Consultant Name Role Phone Unavailable Primary Care Provider Unavailabl e Encounter Details Date Type Department Care Team (Latest Contact Info) Description 04/24/2016 Abstract [facility] Medical Group Maximo Lara MD [address] [place] [address] Social History Tobacco Use Types Packs/Day Years [...]
--- OUTSIDE RECORDS SUMMARY | 2024-07-15 03:09 | XMS_ITS | Encounter Summary ---
Author Organization [facility] Address [facility] [place] [address] [place] [address] Care Team Providers Care Global Coordinator Name Role Phone Unavailable Primary Care Provider Unavailabl e Encounter Details Date Type Department Care Team (Late st Contact Info) Description 04/30/2017 Abstract [facility] [address] [place] [id number] Maximo Lara MD [address] [place], [place] [id number] Social History Tobacco Use Types Packs/Day Years Used Date Smoking Tobacco: Never Assessed Comments Unknown Sex and Gender Information Value Date Recorded Sex Assigned at Not on file Legal Sex Female 6:36 PM CDT Gender Identity Not on file Sexual Orientation Not on file documented as of this encounter Progress Notes * Maximo Lara MD - 04/30/2017 11:30 AM CDT Referred By / Reason Patient was referred by Primary Care Physician Name: Dr. Cortez Reason: Chief Complaint Chief Complaint: The patient presents to the office today with RIGHT elbow pain. History of Present Illness HPI: Patient returns to clinic today in follow up for her RIGHT elbow MRI. She reports no change inher symptoms. PREVIOUS HISTORY 04-26-2017 The patient is being seen for an initial evaluation of a sprain/strain.This is a sprain/strain of the right elbow. This sprain/strain occurred 04/22/2017 at home. This injury resulted from lifting and and felt a pop. She was previously evaluated in this clinic. Previous presentation included localized pain. Symptoms: localized pain and localized swelling, but no localized redness The patient presents with complaints of sudden onset of localized weakness. The patient presents with complaints of localized numbness (3rd through 5th fingers). Sprain/Strain, Unspecified (Brief): The patient is being seen for an initial evaluation of a sprain/strain. This is a sprain/strain of the right elbow. This sprain/strain occurred 04/22/2017 at home.This injury resulted from lifting and and felt a pop. She was previously evaluated in this clinic. Previous presentation included localized pain. Symptoms: localized pain and localized swelling, but no localized redness The patient presents with complaints of sudden onset of localized weakness. The patient presents with complaints of localized numbness (3rd through 5th fingers). Review of Systems See HPI for pertinent [...] 15. Right shoulder pain (719.41) (M25.511) 16. Status post orthopedic surgery, follow-up exam (V67.09) (Z09) 17. Status post osteotomy (V45.89) (Z98.890) 18. Traumatic rupture of right distal biceps tendon, initial encounter (840.8) (S46.211A) 19. Ulnar nerve compression, right (354.2) (G56.21) Past Medical History 1. History of hypercholesterolemia (V12.29) (Z86.39) Surgical History 1. History of Hip Replacement Right 2. History of Knee Surgery Left 3. History of Knee Surgery Right Family History Family History 1. No pertinent family history Social History ?? Former smoker (V15.82) (Z87.891) ?? No alcohol use ?? Primary language is Bruneian ?? Retired Current Meds 1. Atorvastatin Calcium 10 MG Oral Tablet; Therapy: (Recorded:45Drx3569) to Recorded 2. Atorvastatin Calcium 40 MG Oral Tablet; Therapy: 66Vrn7959 to Recorded 3. Azithromycin 250 MG Oral Tablet; Therapy: 18May2016 to Recorded 4. Diclofenac Sodium 50 MG Oral Tablet Delayed Release; Take 1 tablet twice daily; Therapy: 72Bkw7244 to (Evaluate:05May2017) Requested for: 06Dnv2166; Last Rx:93Tcn3661 Ordered 5. Gabapentin CAPS; Therapy: (Recorded:93Nou5100) to Recorded 6. Hibiclens 4 % External Liquid; Use as directed both the night before and morning of surgery; Therapy: 11Jje4870 to (Last Rx:91Ggq5974) Ordered 7. Hydrocodone-Acetaminophen 7.5-325 MG Oral Tablet ([place]); 1- 2 Q 4 - 6 HRS PRN PAIN; Therapy: 52Yue7873 to (Last Rx:16Fqg6986) Ordered 8. Hydrocodone-Acetaminophen 7.5-325 MG Oral Tablet ([place]); TAKE 1 TABLET EVERY 6 HOURS NEEDED FOR PAIN; Therapy: 67Thh8587 to (Evaluate:43Obc3740); Last Rx:97Scy7825 Ordered 9. Ibuprofen 600 MG Oral Tablet; Therapy: 09Wvf3086 to Recorded 10. Ondansetron HCl - 8 MG Oral Tablet; 1 tablet PO Q 4-6 hours PRN for Nausea; Therapy: 26Aos3299 to (Last Rx:41Mrv2894) Ordered 11. PEG-3350/Electrolytes 236 GM Oral Solution Reconstituted; Therapy: 20Bid4397 to Recorded 12. Raloxifene HCl - 60 MG Oral Tablet; Therapy: 04Sht3515 to Recorded 13. Sertraline HCl - 50 MG Oral Tablet; Therapy: 68Jud0063 to Recorded 14. Triamcinolone Acetonide 0.1 % External Cream; Therapy: 32Qdh0429 to Recorded Physical Exam Constitutional: in no acute distress. Neurological:. mood and affect were appropriate. Eyes: pupils were equal in size, round, reactive to light, with normal accommodation. ENT: hearing was normal. Pulmonary: no respiratory distress. Skin: no injuries or skin lesions on the right lower extremity. Right Elbow: EXAM today reveals distal ecchymosis with Omid sign, weak shoulder abduction greaterwith ER, range of motion Results/Data MRI was reviewed and discussed and reveals possible partial distal tear Procedure Procedure: Injection of the right glenohumeral joint. Indication: osteoarthritis. Were discussed with [...] Complications: there were no complications. Assessment 1. 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 Rupture of right distal biceps tendon, subsequent encounter (V58.89,841.8) (S46.211D) 3. Incomplete tear of right rotator cuff (840.4) (M75.111) Plan Incomplete tear of right rotator cuff 1. Continue with our present treatment plan.; Status:Complete; Done: 03May2017 10:35AM Cuff repair success is low especially considering patient forgetfulness. She'll return PRN. Signatures Electronically signed by : Maximo Lara M.D.; May 03 2017 10:35AM BARKER OPERATOR (Author) documented in this encounter Plan of Treatment Not on file documented as of this encounter Visit Diagnoses Not on filedocumented in this encounter
--- OUTSIDE RECORDS SUMMARY | 2024-07-15 03:09 | XMS_ITS | Encounter Summary ---
Author Organization [facility] Address [facility] [place] [address] [place] [address] Care Team Providers Care Geological Specialist Name Role Phone Unavailable Primary Care Provider Unavailabl e Encounter Details Date Type Department Care Team (Late st Contact Info) Description 03/09/2016 Abstract [facility] [address] [place] [id number] Magali Barreto FNP-BC [address] [place] [address] Social History Tobacco Use Types Packs/Day Years Used Date Smoking Tobacco: Never Assessed Comments Unknown Sex and Gender Information Value Date Recorded Sex Assigned at Not on file Legal Sex Female 6:36 PM CDT Gender Identity Not on file Sexual Orientation Not on file documented as of this encounter Progress Notes * RADHA Hurtado - 03/09/2016 10:00 AM CDT Post-Op Ernestine Salinas is status post total hip replacement of the right hip on 02-24-16. HPI: The patient reports no excessive pain, no swelling, no fever, no nausea, no excessive bleeding, no calf swelling, no leg pain and no shortness of breath. The patient also reports using an assistive device for ambulation and weight- bearing as tolerated. She states she is doing well. She is currently using home health for her PT. She has been sleeping well and taking pain medication without any problems. She walked into clinic with a walker and no limp. PE: The surgical incision site was clean, [...] light touch and intact gross motor function. Neurovascular status intact. Assessment: Post-op, the patient is doing well, has excellent pain control and is showing no signs of infection. Plan: Activity Restrictions: arthroplasty precautions reviewed. Done this visit: remove sutures/peter. To Do For Next Visit: xray. Follow up: 4 weeks. She will start transitioning to a cane and speak with Home health to see about transitioning to outpatient therapy vs. home health. She would like to have her physical therapy performed at [facility] in [place] but will notify the office when she would like to start. Orders 1. Continue with our present treatment plan.; Status:Complete; Done: 09Tkw4217 11:41AM Assessment 1. Aftercare following hip joint replacement surgery (V54.81,V43.64) (Z47.1,Z96.649) Signatures Electronically signed by : JERRY Zapata; Mar 09 2016 11:42AM PRODUCT SAFETY COMPLIANCE LEADER (Author) documented in this encounter Plan of Treatment Not on file documented as of this encounter Visit Diagnoses Not on filedocumented in this encounter
--- OUTSIDE RECORDS SUMMARY | 2024-07-15 03:09 | XMS_ITS | Encounter Summary ---
Author Organization [facility] Address [facility] [place] [address] [place] [address] Care Team Providers Care Corn Chip Maker Name Role Phone Unavailable Primary Care Provider Unavailabl e Encounter Details Date Type Department Care Team (Latest Contact Info) Description 03/04/2017 Abstract [facility] Doni Arias, DPM [address] [place] [address] Social History Tobacco Use Types Packs/Day Years Used Date Smoking Tobacco: Never Assessed Comments Unknown Sex and Gender Information Value Date Recorded Sex Assigned at Not on file Legal Sex Female 6:36 PM CDT Gender Identity Not on file Sexual Orientation Not on file documented as of this encounter Progress Notes * Doni Arias MD - 03/04/2017 9:30 AM CDT Referred By / Reason . Chief Complaint . History of Present Illness The patient returns to my office today for treatment of bilateral painful hammer toes. She states that she can really only wear open-toed sandals at this point. Any sort of closed-toed shoes have nothelped her. She has tried inserts as well as the toe strapping, which really has not helped her at all. She is interested in actually fixing the problem. Review of Systems . Active Problems 1. Aftercare following hip joint [...] Osteoarthritis of right hip (715.95) (M16.11) 14. Status post orthopedic surgery, follow-up exam (V67.09) (Z09) 15. Ulnar nerve compression, right (354.2) (G56.21) Past Medical History 1. History Of Hypercholesterolemia (V12.29) (Z86.39) Surgical History 1. History of Hip Replacement Right 2. History of Knee Surgery Left 3. History of Knee Surgery Right Family History Family History 1. No pertinent family history Social History ?? Former smoker (V15.82) (Z87.891) ?? No alcohol use ?? Primary language is Monegasque ?? Retired Current Meds 1. Atorvastatin Calcium 10 MG Oral Tablet; Therapy: (Recorded:27Mwc2975) to Recorded 2. Atorvastatin Calcium 40 MG Oral Tablet; Therapy: 73Sak5564 to Recorded 3. Azithromycin 250 MG Oral Tablet; Therapy: 18May2016 to Recorded 4. Diclofenac Sodium 50 MG Oral Tablet Delayed Release; Take 1 tablet twice daily; Therapy: 15Fdr2541 to (Evaluate:24Gsj9753) Requested for: 59Tzo2399; Last Rx:49Ign3087 Ordered 5. Gabapentin CAPS; Therapy: (Recorded:85Ngs4421) to Recorded 6. Hydrocodone-Acetaminophen 7.5-325 MG Oral Tablet; 1- 2 Q 4 - 6 HRS PRN PAIN; Therapy: 41Lzs5214 to (Last Rx:75Klj4444) Ordered 7. Hydrocodone-Acetaminophen 7.5-325 MG Oral Tablet; TAKE 1 TABLET EVERY 6 HOURS NEEDED FOR PAIN; Therapy: 77Yro8089 to (Evaluate:78Pec2244); Last Rx:92Pav2791 Ordered 8. Ibuprofen 600 MG Oral Tablet; Therapy: 53Mcw0303 to Recorded 9. PEG-3350/Electrolytes 236 GM Oral Solution Reconstituted; Therapy: 13Obf5039 to Recorded 10. Raloxifene HCl - 60 MG Oral Tablet; Therapy: 14Ohm3185 to Recorded 11. Sertraline HCl - 50 MG Oral Tablet; Therapy: 10Aug2016 to Recorded 12. Triamcinolone Acetonide 0.1 % External Cream; Therapy: 61Uiq5774 to Recorded Allergies 1. No Known Allergies Physical Exam There is a dorsal contracture of the lesser digits 2-5 at the level of the metatarsophalangeal joint with a plantarflexory contracture at the PIPJ bilaterally. There is pain with Cristobal maneuver of the 2nd and 3rd metatarsophalangeal joints on the right and the 2nd on the left. Neurovascular status is intact. There is a very mild hallux valgus deformity noted bilaterally. The 1st metatarsocuneiform joint is stable bilaterally. Overall, increased medial arch height bilaterally. Procedure . Assessment 1. Right foot hammer toe #2-5. 2. Right metatarsalgia, #2-3. 3. 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 4. 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 5. Hammer toe, 2-5 on the right foot. Plan We did discuss treatment options with the patient. As this is preventing her from wearing the shoesthat she wants to wear as well as do the activities that she would like to do and she has really tried all appropriate conservative measures, we did discuss surgical intervention at length. As all ofher toes are really contracted and the most pain is actually a result of the dorsal subluxation of the digit into her shoe gear, I did recommend correcting the digital deformity of all of her toes onher right foot. This would also involve a repair of the plantar ligaments at the 2nd and 3rd metatarsophalangeal joints to reduce the sagittal plane deformity as well. The patient would require an art hrodesis of the 2nd - 4th toes and an arthroplasty of the 5th along with corresponding flexor tenotomies and capsulotomies as well as an open repair of the plantar plate along with Deborah metatarsal osteotomies of the 2nd and 3rd toes. This would be done under approximately 2 hours of MAC local anesthesia here at [facility]. The patient would be immediately weightbearing in a CAM walking boot, which we did dispense today along with a receipt for this device and a 30-point DME supplier standard form. Again, this would be outpatient and the patient would be immediately weightbearing andso there would be no need for DVT prophylaxis postoperatively. I did recommend that the patient seeher primary care doctor for a preoperative history and physical before the surgery. As she does have similar deformities on her left foot, we would likely correct this foot at a different surgery as this would be a miserable recovery by performing these procedures bilaterally at the same time and the patient agrees and would like these to be done at a separate time. Again, we discussed with the patient that she will be weightbearing as tolerated in the CAM walking boot for 6 weeks, likely with pin fixation of her digits, which will be removed at the 6 week radha. The patient will follow up with me in 10-14 days afterwards, elevate and increase her foot as much as possible in the first especially 72 hours postoperatively, and we will supplement likely hydrocodone with ibuprofen to minimize edema and postoperative pain. Again, we went over the procedures and all risks, benefits, and alternatives at length. The patient would like to go ahead. All questions were answered at this point. No promises or guarantees were made. We will get her on the schedule as soon as is convenient for her and again she will see her primary care doctor for a preoperative history and physical. Discussion/Summary . Signatures Electronically signed by : Doni Arias M.D.; Mar 10 2017 9:33AM ACADEMIC AFFAIRS COORDINATOR (Author) documented in this encounter Plan of Treatment Not on file documented as of this encounter Visit Diagnoses Not on filedocumented in this encounter
--- OUTSIDE RECORDS SUMMARY | 2024-07-15 03:09 | XMS_ITS | Encounter Summary ---
Author Organization [facility] Address [facility] [place] [place] [address] [place] [address] Care Team Providers Care Texture Artist Name Role Phone Unavailable Primary Care Provider Unavailabl e Encounter Details Date Type Department Care Team (Late st Contact Info) Description 09/25/2016 Abstract [facility] [address] [place] [address] Stephan Barreto FNP-BC [address] [place] [place] [address] Social History Tobacco Use Types Packs/Day Years Used Date Smoking Tobacco: Never Assessed Comments Unknown Sex and Gender Information Value Date Recorded Sex Assigned at Not on file Legal Sex Female 6:36 PM CDT Gender Identity Not on file Sexual Orientation Not on file documented as of this encounter Progress Notes * RADHA Hurtado - 09/25/2016 10:00 AM CDT Chief Complaint Chief Complaint: The patient presents to the office today with Follow up RIGHT total hip replacement. History of Present Illness HPI: Patient returns to clinic today in follow up for her RIGHT SASHA. SURG 02-24-2016 She is doing good. She takes Diclofenac daily BID. She is worried that it's addicting. Otherwise she has no complaints of RIGHT hip pain. PREVIOUS HISTORY 06-29-2016 Patient returns to clinic today for follow up RIGHT total hip replacement on 02-24-16. She walked into clinic without a limp or assistive device. She is very pleased with her progress after surgery. She pain only when She does have a history of neuropathy which has not changed. She states she was seen by Dr. Campuzano and given an injection to her RIGHT shoulder which onlylasted 3-4 days and states that her arthritis has been flaring up and would like something to help that is not over the counter. Review of Systems See HPI for pertinent positives. Active Problems 1. Aftercare following hip joint replacement surgery (V54.81,V43.64) (Z47.1,Z96.649) 2. Cervical pain (723.1) (M54.2) 3. Cervical radiculopathy (723.4) (M54.12) 4. Chronic right hip pain (719.45,338.29) (M25.551,G89.29) 5. Lumbar back pain (724.2) (M54.5) 6. Lumbar radiculopathy, chronic (724.4) (M54.16) 7. Osteoarthritis of right hip (715.95) (M16.11) 8. Status post orthopedic surgery, follow-up exam (V67.09) (Z09) Past Medical History 1. History Of Hypercholesterolemia (V12.29) (Z86.39) Surgical History 1. History of Hip Replacement Right 2. History of Knee Surgery Left 3. History of Knee Surgery Right Social History ?? Former smoker (V15.82) (Z87.891) ?? No alcohol use ?? Primary language is British ?? Retired Current Meds 1. Atorvastatin Calcium 10 MG Oral Tablet; Therapy: (Recorded:14Hju0334) to Recorded 2. Diclofenac Sodium 50 MG Oral Tablet Delayed Release; Take 1 tablet twice daily; Therapy: 86Bmn5249 to (Evaluate:10Wlb6325) Requested for: 08Ybu7287; Last Rx:37Kas8946 Ordered 3. Gabapentin CAPS; Therapy: (Recorded:42Ljg9693) to Recorded 4. Hydrocodone-Acetaminophen 7.5-325 MG Oral Tablet ([place]); 1- 2 Q 4 - 6 HRS PRN PAIN; Therapy: 32Xxm7921 to (Last Rx:12Vha7727) Ordered 5. Hydrocodone-Acetaminophen 7.5-325 MG Oral Tablet ([place]); TAKE 1 TABLET EVERY 6 HOURS NEEDED FOR PAIN; Therapy: 04Vir1560 to (Evaluate:47Cnq1692); Last Rx:09Jun2016 Ordered Allergies 1. No Known Allergies Physical Exam Constitutional: alert and in no acute distress. Neurological:. the patient was oriented to person, place, and time. mood and affect were appropriate. Eyes: pupils were equal in size, round, reactive to light, with normal accommodation. ENT: hearing was normal. Pulmonary: no respiratory distress. Skin: no injuries or skin lesions on the right lower extremity. Right Hip: EXAM today reveals NVI, good straight leg raise, no limp, good rotation, no pain with rotation Results/Data XRAYS today reveals no loosening of prosthesis and good alignment. Findings: Assessment 1. Status post orthopedic surgery, follow-up exam (V67.09) (Z09) Plan Aftercare following hip joint replacement surgery 1. XR Hip 2+ View Rt; Status:Active; Requested for:24Sep2016; Status post orthopedic surgery, follow-up exam 2. Continue with our present treatment plan.; Status:Complete; Done: 25Sep2016 11:32AM She'll return in 6 months. I reassured her Diclofenac was not addictive. AAT Signatures Electronically signed by : JERRY Zapata; Sep 25 2016 11:32AM PROSTHODONTIST/EDUCATOR (Author) documented in this encounter Plan of Treatment Not on file documented as of this encounter Procedures Procedure Name Priority Date/Time Associated Diagnosis Comments XR PELVIS AP+RT HIP 1V Routine 09/25/2016 2:30 PM CDT documented in this encounter Results * XR PELVIS AP+RT HIP 1V (09/25/2016 2:30 PM CDT) Anatomical Region Laterality Modality Pelvis, Hip Radiographic Mely ging 09/25/2016 2:30 PM CDT 09/25/2016 2:30 PM CDT Narrative 09/25/2016 2:34 PM CDT [facility] ?? [address] [place], [place] [address] ?? [place], [place] ? Patient Name: YOANDY SALINAS Date of : 1940 ?? Med Rec #: [id number] ??Age/Sex: 75/F ?Pt. Location: ORTHO ?? Attending Provider: STEPHAN BARRETO NP ?? Ordering Provider: STEPHAN BARRETO NP ? Study Date Order Number Procedure ?? 09/25/16 [id number] XR Hip w Pelv Uni 1 Vw Rt ? Signed ? Examination: Pelvis and right hip. ? Exam time: 0956 hours. ? Clinical history: Surgical aftercare. ? Comparison: 06/29/2016. ? Technique: Weightbearing AP pelvis centered for the hips and weightbearing frog lateral view of the right hip. ? Findings: No fracture, dislocation or other acute bony abnormality is identified. Right hip arthroplasty remains in place with the components in satisfactory alignment and position. There are stable moderate to marked degenerative changes in the left hip. No other significant bone or joint abnormality is noted. Pelvic phleboliths are noted. The soft tissues are otherwise unremarkable. ? IMPRESSION: ?? Stable exam. ? Electronically Signed By: JUSTYNA LOBATO MD 09/25/16 1432 ? Dictated On: 09/25/16 1430 ?? Interpreted By: JUSTYNA LOBATO MD ?? Transcribed On: 09/25/16 1430 - [facility] ?? Procedure Note Marc Day MD - 05/05/2018 [facility] [address] [place], [place] Patient Name: YOANDY SALINAS Date of : 1940 Med Rec #: [id number] Age/Sex: 75/F Pt. Location: ORTHO Attending Provider: STEPHAN BARRETO NP Ordering Provider: DERRICK,STEPHAN M ORCHID SUPERINTENDENT Study Date Order Number Procedure 09/25/16 [id number] XR Hip w Pelv Uni 1 Vw Rt Signed Examination: Pelvis and right hip. Exam time: 0956 hours. Clinical history: Surgical aftercare. Comparison: 06/29/2016. Technique: Weightbearing AP pelvis centered for the hips andweightbearing frog lateral view of the right hip. Findings: No fracture, dislocation or other acute bony abnormality isidentified. Right hip arthroplasty remains in place with the components in satisfactoryalignment and position. There are stable moderate to marked degenerative changes in the left hip. No othersignificant bone or joint abnormality is noted. Pelvic phleboliths are noted. The soft tissues areotherwise unremarkable. IMPRESSION: Stable exam. Electronically Signed By: JUSTYNA LOBATO MD 09/25/16 1432 Dictated On: 09/25/16 1430 Interpreted By: JUSTYNA LOBATO MD Transcribed On: 09/25/16 1430 - [facility] us Stephan Barreto CHILD DAY CARE TEACHER-BC GENERAL IMAGING Final Resu lt documented in this encounter Visit Diagnoses Not on filedocumented in this encounter
--- OUTSIDE RECORDS SUMMARY | 2024-07-15 03:09 | XMS_ITS | Encounter Summary ---
Author Organization [facility] Address [facility] [place] [address] [place] [address] Care Team Providers Care Director Clinical Information Services Name Role Phone Unavailable Primary Care Provider Unavailabl e Encounter Details Date Type Department Care Team (Latest Contact Info) Description 04/10/2016 Abstract [facility] Medical Group Maximo Lara MD [address] [place] [address] Social History Tobacco Use Types Packs/Day Years [...] Name Priority Date/Time Associated Diagnosis Comments MRI LUMB SPINE WO CON Routine 04/10/2016 11:29 AM CDT documented in this encounter Results * MRI LUMB SPINE WO CON (04/10/2016 11:29 AM CDT) Anatomical Region Laterality Modality Spine Magnetic Resonan ce 04/10/2016 11:2 9 AM CDT 04/10/2016 11:29 AM CDT Narrative 04/10/2016 11:43 AM CDT [facility] ?? [employer] ?? [place], [place] ? Patient Name: YOANDY SALINAS Date of : 1940 ?? Med Rec #: [id number] ??Age/Sex: 75/F ?Pt. Location: MRI ?? Attending Provider: MAXIMO LARA MD (TRACY) ?? Ordering Provider: MAXIMO LARA MD (TRACY) ? Study Date Order Number Procedure ?? 04/10/16 [id number] MRI Lumbar Spine WO ? Signed ? Exam: MRI lumbar spine ? Correlating x-ray 04/06/2016 ? INDICATION: Low back pain and right hip pain. ? TECHNIQUE: Noncontrast multiplanar multisequence imaging. ? FINDINGS: Scoliosis and diffuse degenerative changes correlate with the recent x-ray findings. Numerous T1 hyperintense bone areas have the appearance of cavernous hemangiomas and degenerative disc disease. Probable small right renal cyst. Small left renal lesion is mildly hyperintense on T1 and hyperintense on T2. This likely represents a complex cyst measuring about 11 mm. No findings for an acute lumbar spine fracture. ? T12-L1: Small disc bulge. ? L1-2: Small posterior osteophytes. Large disc bulge. Some mildly T2 hyperintense material in the posterior disc left side could be a superimposed herniation or annular tear. Mild facet hypertrophy. Mild spinal stenosis. Bilateral foraminal narrowing. ? L2-3: L3 is displaced to the left about 1.5 cm relative to both L2 and L4. Asymmetric degenerative disc changes in the endplates at the 2 disc levels, also on the right side. Facet hypertrophy. Large disc bulge asymmetric to the right side. Bilateral foraminal narrowing. Mild to moderate spinal stenosis. ? L3-4: Small posterior osteophytes. Moderate disc bulge. Advanced facet hypertrophy and some ligamentum flavum hypertrophy. Moderate spinal stenosis. Bilateral foraminal narrowing. ? L4-5: Mild anterior positioning of L4 relative to L5 is probably due to advanced facet hypertrophy. No convincing pars interarticularis defect. Ligamentum flavum hypertrophy. Large disc bulge. Severe spinal stenosis and bilateral foraminal narrowing. ? L5-S1: Facet hypertrophy. Moderate disc bulge. Bilateral foraminal narrowing. ? IMPRESSION: ?? 1. Scoliosis and advanced, diffuse degenerative changes. ?? 2. Multilevel spinal and foraminal stenosis. Greatest degree of spinal stenosis is at L4-5. ?? 3. Possible complex cyst left kidney. ? Electronically Signed By: SIVAN JEAN MD 04/10/16 1141 ? Dictated On: 04/10/16 1129 ?? Interpreted By: SIVAN JEAN MD ?? Transcribed On: 04/10/16 1129 - INFCE ?? Procedure Note Marc Day MD - 05/06/[address] Patient Name: YOANDY SALINAS Date of : 1940 Med Rec #: [id number] Age/Sex: 75/F Pt. Location: MRI Attending Provider: MAXIMO LARA MD (TRACY) Ordering Provider: MAXIMO LARA MD (TRACY) Study Date Order Number Procedure 04/10/16 [id number] MRI Lumbar Spine WO Signed Exam: MRI lumbar spine Correlating x-ray 04/06/2016 INDICATION: Low back pain and right hip pain. TECHNIQUE: Noncontrast multiplanar multisequence imaging. FINDINGS: Scoliosis and diffuse degenerative changes correlate with therecent x- ray findings. Numerous T1 hyperintense bone areas have the appearance of cavernoushemangiomas and degenerative disc disease. Probable small right renal cyst. Small left renal lesion ismildly hyperintense on T1 and hyperintense on T2. This likely represents a complex cyst measuringabout 11 mm. No findings for an acute lumbar spine fracture. T12-L1: Small disc bulge. L1-2: Small posterior osteophytes. Large disc bulge. Some mildly K7ahscvrughzwn material in the posterior disc left side could be a superimposed herniation or annulartear. Mild facet hypertrophy. Mild spinal stenosis. Bilateral foraminal narrowing. L2-3: L3 is displaced to the left about 1.5 cm relative to both L2 andL4. Asymmetric degenerative disc changes in the endplates at the 2 disc levels, also on the rightside. Facet hypertrophy. Large disc bulge asymmetric to the right side. Bilateral foraminalnarrowing. Mild to moderate spinal stenosis. L3-4: Small posterior osteophytes. Moderate disc bulge. Advanced facethypertrophy and some ligamentum flavum hypertrophy. Moderate spinal stenosis. Bilateralforaminal narrowing. L4-5: Mild anterior positioning of L4 relative to L5 is probably due toadvanced facet hypertrophy. No convincing pars interarticularis defect. Ligamentum flavumhypertrophy. Large disc bulge. Severe spinal stenosis and bilateral foraminal narrowing. L5-S1: Facet hypertrophy. Moderate disc bulge. Bilateral foraminalnarrowing. IMPRESSION: 1. Scoliosis and advanced, diffuse degenerative changes. 2. Multilevel spinal and foraminal stenosis. Greatest degree of spinalstenosis is at L4-5. 3. Possible complex cyst left kidney. Electronically Signed By: SIVAN JEAN MD 04/10/16 1141 Dictated On: 04/10/16 1129 Interpreted By: SIVAN JEAN MD Transcribed On: 04/10/16 1129 - INFCE Maximo Lara MD MRI Final Result documented in this encounter Visit Diagnoses Not on filedocumented in this encounter
--- OUTSIDE RECORDS SUMMARY | 2024-07-15 03:09 | XMS_ITS | Encounter Summary ---
Author Organization [facility] Address [address] [place] [address]. [place] [address] [place] [address] Care Team Providers Care Liquid Sugar Melter Name Role Phone Orlando Cortez MD Primary Care Provider [phone] Encounter Details Date Type Department Care Team (Late st Contact Info) Description 10/22/2016 Abstract [facility] [address] [facility] [place] [address] Maximo Lara MD [address] [place] [address] Social History Tobacco Use Types [...] of this encounter Visit Diagnoses Diagnosis Other shoulder lesions, right shoulder documented in this encounter Care Teams Liquid Sugar Melter Relationship Specialty Start Date End Date Orlando Cortez MD [address] [place] [phone] PCP - General FAMILY PRACTICE 06/27/18 documented as of this encounter
--- OUTSIDE RECORDS SUMMARY | 2024-07-15 03:09 | XMS_ITS | Encounter Summary ---
Author Organization [facility] Address [facility] [facility] [place] [address] [place] [address] Care Team Providers Care Criminal Intelligence Specialist Name Role Phone Unavailable Primary Care Provider Unavailabl e Encounter Details Date Type Department Care Team (Late st Contact Info) Description 06/29/2016 Abstract [facility] [address] [place] [phone] Stephan Barreto FNP-WILLARD [address] [place] [address] Social History Tobacco Use Types Packs/Day Years Used Date Smoking Tobacco: Never Assessed Comments Unknown Sex and Gender Information Value Date Recorded Sex Assigned at Not on file Legal Sex Female 6:36 PM CDT Gender Identity Not on file Sexual Orientation Not on file documented as of this encounter Progress Notes * RADHA Hurtado - 06/29/2016 10:30 AM CST Chief Complaint Chief Complaint: The patient presents to the office today with Follow up RIGHT total hip replacement. History of Present Illness HPI: Patient returns to clinic today for follow [...] an injection to her RIGHT shoulder which only lasted 3-4 days and states that her arthritis [...] No alcohol use ?? Primary language is Pakistani ?? Retired Current Meds 1. Atorvastatin Calcium 10 MG Oral Tablet; Therapy: (Recorded:99Dfw0647) to Recorded 2. Gabapentin CAPS; Therapy: (Recorded:60San4270) to Recorded 3. Hydrocodone-Acetaminophen 7.5-325 MG Oral Tablet; 1- 2 Q 4 - 6 HRS PRN PAIN; Therapy: 18Fqy9468 to (Last Rx:[id number]) Ordered 4. Hydrocodone-Acetaminophen 7.5-325 MG Oral Tablet; TAKE 1 TABLET EVERY 6 HOURS NEEDED FOR PAIN; Therapy: 46Nec3498 to (Evaluate:74Jni6457); Last Rx:09Jun2016 Ordered Allergies 1. No Known Allergies Physical Exam Constitutional: alert and in no acute distress. Neurological:. the patient was oriented to person, place, and time. mood and affect were appropriate. Eyes: the sclera and conjunctiva were normal. ENT: hearing was normal. Pulmonary: no respiratory distress. Skin: no injuries or skin lesions on the right lower extremity. Right Hip: EXAM today reveals good ROM, No groin pain, NVI. Results/Data Views: of the right hip. XRAY today reveals prosthetic in good alignment with no signs of loosening. Findings: Assessment 1. Status post orthopedic surgery, follow-up exam (V67.09) (Z09) Plan Osteoarthritis of right hip 1. Meloxicam 15 MG Oral Tablet; TAKE 1 TABLET DAILY Status post orthopedic surgery, follow-up exam 2. XR Hip 2+ View Rt; Status:Active; Requested for:40Tnq7269; 3. Continue with our present treatment plan.; Status:Complete; Done: 42Ari9516 11:40AM 4. You may continue or resume your normal level of activity.; Status:Complete; Done: 07Wua5652 11:40AM Called in script for Meloxicam. She will follow up in 6 months for her RIGHT hip. To Do For Next Visit: xray. Signatures Electronically signed by : JERRY Zapata; Jun 29 2016 11:49AM SOLAR PHOTOVOLTAIC DESIGNER (Author) documented in this encounter Plan of Treatment Not on file documented as of this encounter Procedures Procedure Name Priority Date/Time Associated Diagnosis Comments XR PELVIS AP+RT HIP 1V Routine 06/29/2016 11:41 AM SOLAR PHOTOVOLTAIC DESIGNER documented in this encounter Results * XR PELVIS AP+RT HIP 1V (06/29/2016 11:41 AM SOLAR PHOTOVOLTAIC DESIGNER) Anatomical Region Laterality Modality Pelvis, Hip Radiographic Mely ging 06/29/2016 11:4 1 AM SOLAR PHOTOVOLTAIC DESIGNER 06/29/2016 11:41 AM SOLAR PHOTOVOLTAIC DESIGNER Narrative 06/29/2016 11:47 AM SOLAR PHOTOVOLTAIC DESIGNER [facility] ?? [address] [employer] ?? [place], [place] ? Patient Name: YOANDY SALINAS Date of : 1940 ?? Med Rec #: [id number] ??Age/Sex: 75/F ?Pt. Location: ORTHO ?? Attending Provider: STEPHAN BARRETO NP ?? Ordering Provider: STEPHAN BARRETO NP ? Study Date Order Number Procedure ?? 06/29/164476-1295 XR Hip w Pelv Uni 1 Vw Rt ? Signed ? Examination: Pelvis and right hip. ? Exam time: 1012 hours. ? Clinical history: Surgical aftercare. ? Comparison: 04/06/2016. ? Technique: Weightbearing AP pelvis centered for the hips and weightbearing frog lateral view of the right hip. ? Findings: No fracture, dislocation or other acute bony abnormality is identified. Total joint prosthesis on the right remains in place with the components appearing in satisfactory alignment and position. There are stable moderate to marked degenerative changes on the left manifested by joint space narrowing, subchondral sclerosis and femoroacetabular osteophyte formation. No other significant bone or joint abnormality is noted. The soft tissues are unremarkable. ?? IMPRESSION: ? 1. Stable, satisfactory postoperative right hip. ?? 2. Stable degenerative changes, left hip. ? Electronically Signed By: JUSTYNA LOBATO MD 06/29/16 1144 ? Dictated On: 06/29/16 1141 ?? Interpreted By: JUSTYNA LOBATO MD ?? Transcribed On: 06/29/16 1141 - INFCE ?? Procedure Note Marc Day MD - 05/04/[address] Patient Name: YOANDY SALINAS Date of : 1940 Med Rec #: [id number] Age/Sex: 75/F Pt. Location: ORTHO Attending Provider: STEPHAN BARRETO NP Ordering Provider: STEPHAN BARRETO NP Study Date Order Number Procedure 06/29/16 [id number] XR Hip w Pelv Uni 1 Vw Rt Signed Examination: Pelvis and right hip. Exam time: 1012 hours. Clinical history: Surgical aftercare. Comparison: 04/06/2016. Technique: Weightbearing AP pelvis centered for the hips andweightbearing frog lateral view of the right hip. Findings: No fracture, dislocation or other acute bony abnormality isidentified. Total joint prosthesis on the right remains in place with the components appearing insatisfactory alignment and position. There are stable moderate to marked degenerative changes onthe left manifested by joint space narrowing, subchondral sclerosis and femoroacetabularosteophyte formation. No other significant bone or joint abnormality is noted. The soft tissues areunremarkable. IMPRESSION: 1. Stable, satisfactory postoperative right hip. 2. Stable degenerative changes, left hip. Electronically Signed By: JUSTYNA LOBATO MD 06/29/16 1144 Dictated On: 06/29/16 1141 Interpreted By: JUSTYNA LOBATO MD Transcribed On: 06/29/16 1141 - INFCE us Stephan Barreto SHOE STOCK ASSOCIATE-[facility] GENER[facility] Final Resu lt documented in this encounter Visit Diagnoses Not on filedocumented in this encounter
--- OUTSIDE RECORDS SUMMARY | 2024-07-15 03:09 | XMS_ITS | Encounter Summary ---
Author Organization [facility] Address [address] [place] [address]. [place] [address] [place] [address] Care Team Providers Care Physician Scientist Name Role Phone Orlando Cortez MD Primary Care Provider [phone] Encounter Details Date Type Department Care Team (Late st Contact Info) Description 04/06/2016 Abstract [facility] [address] [place] [address] Magali Barreto, [facility] [address] [place] [address] Social History Tobacco Use Types Packs/Day Years [...] as of this encounter Visit Diagnoses Diagnosis Low back pain Lumbago documented in this encounter Care Teams Physician Scientist Relationship Specialty Start Date End Date Orlando Cortez MD [address] [place] [phone] PCP - General FAMILY PRACTICE 06/27/18 documented as of this encounter
--- OUTSIDE RECORDS SUMMARY | 2024-07-15 03:09 | XMS_ITS | Encounter Summary ---
Author Organization [facility] Address [address] [place] [address]. [place] [address] [place] [address] Care Team Providers Care Hospice Patient Care Secretary Name Role Phone Orlando Cortez MD Primary Care Provider [phone] Encounter Details Date Type Department Care Team (Late st Contact Info) Description 04/06/[address] [facility] [address] [facility] [place] [address] Orlando Cortez MD [address] [place] [phone] Social History Tobacco Use Types Packs/Day [...] encounter Visit Diagnoses Diagnosis Personal history of nicotine dependence Personal history of tobacco use, presenting hazards to health documented in this encounter Care Teams Hospice Patient Care Secretary Relationship Specialty Start Date End Date Orlando Cortez MD [address] [place] [phone] PCP - General FAMILY PRACTICE 06/27/18 documented as of this encounter
--- OUTSIDE RECORDS SUMMARY | 2024-07-15 03:09 | XMS_ITS | Encounter Summary ---
Author Organization [facility] Address [facility] [place] [address] [place] [address] Care Team Providers Care Estimator And Drafter Supervisor Name Role Phone Unavailable Primary Care Provider Unavailabl e Encounter Details Date Type Department Care Team (Latest Contact Info) Description 01/21/2017 Abstract [facility] Medical Group Doni Arias, DPM [address] [place] [address] Social History Tobacco Use Types Packs/Day Years Used Date Smoking Tobacco: Never Assessed Comments Unknown Sex and Gender Information Value Date Recorded Sex Assigned at Not on file Legal Sex Female 6:36 PM CDT Gender Identity Not on file Sexual Orientation Not on file documented as of this encounter Progress Notes * Doni Arias MD - 01/21/2017 9:30 AM CDT Referred By / Reason . Chief Complaint I've got hammertoes on both my feet. History of Present Illness This is a 76-year-old female who presents today with hammertoe pain for several months. These have been present for years, and they have gotten progressively worse. She has not tried anything to treat them other than wearing different shoes. These are better during the summer when she is in flip flops, worse in closed toed shoes. She does not notice any pain on the ball of her feet. Review of Systems An 11-point review of systems is negative except for the HPI. Active Problems . 1. Aftercare following hip joint replacement surgery [...] compression, right (354.2) (G56.21) Past Medical History Reviewed and in the chart. 1. History Of Hypercholesterolemia (V12.29) (Z86.39) Surgical History Reviewed and in the chart. 1. History of Hip Replacement Right 2. History of Knee Surgery Left 3. History of Knee Surgery Right Family History Reviewed and in the chart. Family History 1. No pertinent family history Social History Reviewed and in the chart. ?? Former smoker (V15.82) (Z87.891) ?? No alcohol use ?? Primary language is Jordanian ?? Retired Current Meds Reviewed and in the chart. 1. Atorvastatin Calcium 10 MG Oral Tablet; Therapy: (Recorded:87Dvi6625) to Recorded 2. Atorvastatin Calcium 40 MG Oral Tablet; Therapy: 84Ouc1160 to Recorded 3. Azithromycin 250 MG Oral Tablet; Therapy: 18May2016 to Recorded 4. Diclofenac Sodium 50 MG Oral Tablet Delayed Release; Take 1 tablet twice daily; Therapy: 05Gtv8934 to (Evaluate:72Dnw2378) Requested for: 65Jly3303; Last Rx:40Dbh5723 Ordered 5. Gabapentin CAPS; Therapy: (Recorded:49Nlb1758) to Recorded 6. Hydrocodone-Acetaminophen 7.5-325 MG Oral Tablet; 1- 2 Q 4 - 6 HRS PRN PAIN; Therapy: 62Fuv4011 to (Last Rx:09Jju9090) Ordered 7. Hydrocodone-Acetaminophen 7.5-325 MG Oral Tablet; TAKE 1 TABLET EVERY 6 HOURS NEEDED FOR PAIN; Therapy: 78Luy5928 to (Evaluate:51Kyz8126); Last Rx:09Jun2016 Ordered 8. Ibuprofen 600 MG Oral Tablet; Therapy: 11May2016 to Recorded 9. PEG-3350/Electrolytes 236 GM Oral Solution Reconstituted; Therapy: 31Mar2016 to Recorded 10. Raloxifene HCl - 60 MG Oral Tablet; Therapy: 65Mtp7587 to Recorded 11. Sertraline HCl - 50 MG Oral Tablet; Therapy: 10Aug2016 to Recorded Allergies Reviewed and in the chart. 1. No Known Allergies Vitals Height 5 feet 11 inches, weight 190. Blood pressure 139/96. Physical Exam GENERAL: Alert and oriented x 3. In no apparent distress. VASCULAR: Pedal pulses easily palpable bilaterally. Diminished pedal hair growth bilaterally. Capillary refill time is less than 3 seconds to all 10 digits bilaterally. DERMATOLOGIC: No openings to the dermis noted bilaterally. NEUROLOGIC: There is 5/5 muscle strength to all pedal muscle groups crossing the ankle joint bilaterally. Epicritic sensation is intact bilaterally. MUSCULOSKELETAL: Pain and instability with Cristobal noted over the 2nd and 3rd metatarsophalangeal joints on the left and the 2nd on the right. There is a plantar flexor contracture at the PIPJ at thebilateral 2nd toe that is nonreducible and painful as I try to reduce this deformity. There is a dino siflexion contracture at the MPJ of the bilateral 2nd digit, as well as the left 3rd digit that is reducible. Pain to palpation of the 2nd and 3rd metatarsal heads on the left and the right, and the 2nd on the right. Slight hallux valgus deformity on the left with good stability noted at the 1st metatarsocuneiform joint. Procedure . Assessment 1. General wellness exam without abnormal finding. 2. Bilateral metatarsalgia. 3. Bilateral hammertoe #2 and hammertoe #3 on the right. Plan First of all, we did perform a fall risk assessment. The patient is at low risk for falls and not in need of Leblanc balance braces or physical therapy. We did go over treatment options with the patient, including accommodative shoe gear and toe strapping. We did perform toe strapping of the 2nd and 3rd toes on the left, as well as the 2nd on the right. These should plantar flex these digits enough to prevent these digits from impinging shoe gear. I did recommend she look for more accommodative shoe gear with a larger toe box. We also did discuss surgical intervention. This would include a PIPJ arthrodesis, MPJ capsulotomy, and lengthening of extensor tendon, and this would also likely require a metatarsal osteotomy, as well as plantar plate repair. We did discuss that the subluxation and the instability at the metatarsophalangeal joint was actually allowing the digit to contract dorsally. This would be outpatient, MAC, local. She would be weightbearing in a boot for approximately 6 weeks plus or minus K-wire fixation of her digits. She voiced understanding. She will attempt accommodative shoe gear, and she will follow up with me in 6 weeks to check on her progress. Discussion/Summary . Signatures Electronically signed by : Doni Arias M.D.; Feb 02 2017 1:11PM SHIP'S MASTER (Author) documented in this encounter Plan of Treatment Not on file documented as of this encounter Visit Diagnoses Not on filedocumented in this encounter
--- OUTSIDE RECORDS SUMMARY | 2024-07-15 03:09 | XMS_ITS | Encounter Summary ---
Author Organization [facility] Address [facility] [address] [place] [address] Care Team Providers Care Muck Boss Name Role Phone Unavailable Primary Care Provider Unavailabl e Encounter Details Date Type Department Care Team (Latest Contact Info) Description 04/08/2016 Abstract [facility] Medical Group Maximo Lara MD [address] [place] [address] Social History Tobacco Use Types Packs/Day Years [...]
--- OUTSIDE RECORDS SUMMARY | 2024-07-15 03:09 | XMS_ITS | Encounter Summary ---
Author Organization [facility] Address [facility] [place] [address] [place] [address] Care Team Providers Care Boiler Fireman Name Role Phone Unavailable Primary Care Provider Unavailabl e Encounter Details Date Type Department Care Team (Latest Contact Info) Description 03/17/2016 Abstract [facility] Medical Group Maximo Lara MD [address] [place] [address] Social History Tobacco Use Types Packs/Day Years [...]
--- OUTSIDE RECORDS SUMMARY | 2024-07-15 03:09 | XMS_ITS | Encounter Summary ---
Author Organization [facility] Address [facility] [place] [address] [place] [address] Care Team Providers Care Car Seat Maker Name Role Phone Unavailable Primary Care Provider Unavailabl e Encounter Details Date Type Department Care Team (Latest Contact Info) Description 04/02/2016 Abstract [facility] Medical Group Maximo Lara MD [address] [place] [address] Social History Tobacco Use Types Packs/Day Years [...]
--- OUTSIDE RECORDS SUMMARY | 2024-07-15 03:09 | XMS_ITS | Encounter Summary ---
Author Organization [facility] Address [address] [place] [address]. [place] [address] [place] [address] Care Team Providers Care Operating Room Assistant Name Role Phone Orlando Cortez MD Primary Care Provider [phone] Encounter Details Date Type Department Care Team (Late st Contact Info) Description 02/23/2017 Abstract [facility] Diagnostic Imaging [address] [place] [address] Magali Barreto, [facility] [address] [place] [address] Social History Tobacco Use Types Packs/Day Years [...] this encounter Visit Diagnoses Diagnosis Encounter for follow-up examination after completed treatment for conditions other than malignant neoplasm documented in this encounter Care Teams Operating Room Assistant Relationship Specialty Start Date End Date Orlando Cortez MD [address] [place] [phone] PCP - General FAMILY PRACTICE 06/27/18 documented as of this encounter
--- OUTSIDE RECORDS SUMMARY | 2024-07-15 03:09 | XMS_ITS | Encounter Summary ---
Author Organization [facility] Address [facility]6 [facility] [place] [address] [place] [address] Care Team Providers Care Credit Collections Rep Name Role Phone Unavailable Primary Care Provider Unavailabl e Encounter Details Date Type Department Care Team (Late st Contact Info) Description 02/23/2017 Abstract [facility] [address] [place] [address] Stephan Barreto FNP-BC [address] [facility] [place] [address] Social History Tobacco Use Types Packs/Day Years Used Date Smoking Tobacco: Never Assessed Comments Unknown Sex and Gender Information Value Date Recorded Sex Assigned at Not on file Legal Sex Female 6:36 PM CDT Gender Identity Not on file Sexual Orientation Not on file documented as of this encounter Progress Notes * RADHA Hurtado - 02/23/2017 9:30 AM CDT Chief Complaint Chief Complaint: The patient presents to the office today with RIGHT hip follow up. History of Present Illness HPI: Patient returns to clinic today for follow up RIGHT total hip arthroplasty on 02-24-16. She reports that she is doing well and sleeping well. Walked into clinic today with no assistive device. PREVIOUS HISTORT 10/27/16 Patient returns to clinic today in follow [...] History of Knee Surgery Right Family History 1. No pertinent family history Social History ?? Former smoker (V15.82) (Z87.641) ?? No alcohol use ?? Primary language is Russian ?? Retired Current Meds 1. Atorvastatin Calcium 10 MG Oral Tablet; Therapy: (Recorded:03Ytj1009) to Recorded 2. Atorvastatin Calcium 40 MG Oral Tablet; Therapy: 33Ycu1886 to Recorded 3. Azithromycin 250 MG Oral Tablet; Therapy: 18May2016 to Recorded 4. Diclofenac Sodium 50 MG Oral Tablet Delayed Release; Take 1 tablet twice daily; Therapy: 25Dxo7638 to (Evaluate:01Htn8580) Requested for: 67Yil2017; Last Rx:33Sda6063 Ordered 5. Gabapentin CAPS; Therapy: (Recorded:07Syo9682) to Recorded 6. Hydrocodone-Acetaminophen 7.5-325 MG Oral Tablet; 1- 2 Q 4 - 6 HRS PRN PAIN; Therapy: 67Czy8280 to (Last Rx:52Upl7813) Ordered 7. Hydrocodone-Acetaminophen 7.5-325 MG Oral Tablet; TAKE 1 TABLET EVERY 6 HOURS NEEDED FOR PAIN; Therapy: 70Ctv1580 to (Evaluate:86Qix3943); Last Rx:09Jun2016 Ordered 8. Ibuprofen 600 MG Oral Tablet; Therapy: 11May2016 to Recorded 9. PEG-3350/Electrolytes 236 GM Oral Solution Reconstituted; Therapy: 19Xzn5132 to Recorded 10. Raloxifene HCl - 60 MG Oral Tablet; Therapy: 16Iuz2464 to Recorded 11. Sertraline HCl - 50 [...] extremity. Right Hip: EXAM today reveals good hip rotation, no groin pain with hip rotation, good quad, no limp, NVI Results/Data Views: of the right hip. XRAY today reveals stable prosthetic no signs of loosening Findings: Assessment 1. Status post orthopedic surgery, follow-up exam (V67.09) (Z09) Plan Status post orthopedic surgery, follow-up exam 1. XR Hip 2+ View Rt; Status:Active; Requested for:29Gxm9989; 2. Continue with our present treatment plan.; Status:Complete; Done: 43Jzg9940 3. You may continue or resume your normal level of activity.; Status:Complete; Done: 57Eeh3120 She has done very well with her progress. AAT. She will follow up PRN. Signatures Electronically signed by : JERRY Zapata; Feb 23 2017 12:26PM ED CASE MANAGER (Author) documented in this encounter Plan of Treatment Not on file documented as of this encounter Procedures Procedure Name Priority Date/Time Associated Diagnosis Comments XR PELVIS AP+RT HIP 1V Routine 02/23/2017 1:13 PM CDT documented in this encounter Results * XR PELVIS AP+RT HIP 1V (02/23/2017 1:13 PM CDT) Anatomical Region Laterality Modality Pelvis, Hip Radiographic Mely ging 02/23/2017 1:13 PM CDT 02/23/2017 1:13 PM CDT Narrative 02/23/2017 1:21 PM CDT [facility] ?? [facility] [employer] ?? [place], [place] ? Patient Name: YOANDY SALINAS Date of : 1940 ?? Med Rec #: [id number] ??Age/Sex: 76/F ?Pt. Location: ORTHO ?? Attending Provider: STEPHAN BARRETO WAREHOUSE DISTRIBUTION MANAGER ?? Ordering Provider: STEPHAN BARRETO NP ? Study Date Order Number Procedure ?? 02/23/17 [id number] XR Hip w Pelv Uni 1 Vw Rt ? Signed ? Examination: Pelvis and right hip. ? Exam time: 0909 hours. ? Clinical history: Surgical aftercare. ? Comparison: 09/25/2016. ? Technique: Weightbearing AP pelvis centered for the hips and weightbearing frog lateral view of the right hip. ? Findings: No fracture, dislocation or other acute bony abnormality is identified. Arthroplasty remains in place on the right with the components appearing in satisfactory alignment and position. There are stable moderate to marked degenerative changes in the left hip. No other significant bone or joint abnormality is noted. Pelvic phleboliths again noted. The soft tissues are otherwise unremarkable. ? IMPRESSION: ?? Stable exam. Satisfactory postoperative right hip. ? Electronically Signed By: JUSTYNA LOBATO MD 02/23/17 1317 ? Dictated On: 02/23/17 1313 ?? Interpreted By: JUSTYNA LOBATO MD ?? Transcribed On: 02/23/17 1313 - [facility] ?? Procedure Note Marc Day MD - 05/04/[address] Patient Name: YOANDY SALINAS Date of : 1940 Med Rec #: [id number] Age/Sex: 76/F Pt. Location: ORTHO Attending Provider: STEPHAN BARRETO NP Ordering Provider: STEPHAN BARRETO NP Study Date Order Number Procedure 02/23/17 [id number] XR Hip w Pelv Uni 1 Vw Rt Signed Examination: Pelvis and right hip. Exam time: 0909 hours. Clinical history: Surgical aftercare. Comparison: 09/25/2016. Technique: Weightbearing AP pelvis centered for the hips andweightbearing frog lateral view of the right hip. Findings: No fracture, dislocation or other acute bony abnormality isidentified. Arthroplasty remains in place on the right with the components appearing insatisfactory alignment and position. There are stable moderate to marked degenerative changes in the left hip.No other significant bone or joint abnormality is noted. Pelvic phleboliths again noted. The softtissues are otherwise unremarkable. IMPRESSION: Stable exam. Satisfactory postoperative right hip. Electronically Signed By: JUSTYNA LOBATO MD 02/23/171316 Dictated On: 02/23/171312 Interpreted By: JUSTYNA LOBATO MD Transcribed On: 02/23/171312 - [facility] us Stephan Barreto NEW CAR SALESPERSON-BC GENERAL IMAGING Final Resu lt documented in this encounter Visit Diagnoses Not on filedocumented in this encounter
--- OUTSIDE RECORDS SUMMARY | 2024-07-15 03:09 | XMS_ITS | Encounter Summary ---
Author Organization [facility] Address [address] [place] [address]. [place] [address] [place] [address] Care Team Providers Care Senior Technical Program Manager Name Role Phone Orlando Cortez MD Primary Care Provider [phone] Encounter Details Date Type Department Care Team (Late st Contact Info) Description 04/07/[address] [facility] [address] [facility] [place] [address] Orlando Cortez MD [address] [place] [phone] Social History Tobacco Use Types Packs/Day [...] encounter Visit Diagnoses Diagnosis Pain in right shoulder Pain in joint, shoulder region documented in this encounter Care Teams Senior Technical Program Manager Relationship Specialty Start Date End Date Orlando Cortez MD [address] [place] [phone] PCP - General FAMILY PRACTICE 06/27/18 documented as of this encounter
--- OUTSIDE RECORDS SUMMARY | 2024-07-15 03:09 | XMS_ITS | Encounter Summary ---
Author Organization [facility] Address [address] [place] [address]. [place] [address] [place] [address] Care Team Providers Care Foam Molder Name Role Phone Unavailable Primary Care Provider Unavailabl e Encounter Details Date Type Department Care Team (Late st Contact Info) Description 01/15/2017 Abstract [facility] Neuroscience [facility] [address], [place] [phone] Joselito Alexander MD [address] [address] Social History Tobacco Use Types Packs/Day Years [...]
--- OUTSIDE RECORDS SUMMARY | 2024-07-15 03:09 | XMS_ITS | Encounter Summary ---
Author Organization [facility] Address [facility] [place] [address] [place] [address] Care Team Providers Care Traction Power Engineer Name Role Phone Unavailable Primary Care Provider Unavailabl e Encounter Details Date Type Department Care Team (Latest Contact Info) Description 03/19/2017 Abstract [facility] Social History Tobacco Use Types Packs/Day Years Used Date Smoking Tobacco: Never Assessed Comments Unknown Sex and Gender Information Value Date Recorded Sex Assigned at Not on file Legal Sex Female 6:36 PM CDT Gender Identity Not on file Sexual Orientation Not on file documented as of this encounter Progress Notes * Marc Baker Md, MD - 03/19/2017 4:07 PM CDT Message Message: Per Idalia at [facility] no precert is needed for codes 36044,74191,29115,15620,47947.Reference number [id number] Signatures Electronically signed by : Ifeoma Chávez, ; Mar 25 2017 10:05AM TEACHER VISUALLY IMPAIRED (Author) documented in this encounter Plan of Treatment Not on file documented as of this encounter Visit Diagnoses Not on filedocumented in this encounter
--- OUTSIDE RECORDS SUMMARY | 2024-07-15 03:09 | XMS_ITS | Encounter Summary ---
Author Organization [facility] Address [address] [place] [address]. [place] [address] [place] [address] Care Team Providers Care Parks Worker Name Role Phone Orlando Cortez MD Primary Care Provider [phone] Encounter Details Date Type Department Care Team (Late st Contact Info) Description 04/10/2016 Abstract [facility] [address] [place] [address] Maximo Lara MD [address] [place] [address] Social History Tobacco Use Types [...] Lumbago documented in this encounter Care Teams Parks Worker Relationship Specialty Start Date End Date Orlando Cortez MD [address] [place] [phone] PCP - General FAMILY PRACTICE 06/27/18 documented as of this encounter
--- OUTSIDE RECORDS SUMMARY | 2024-07-15 03:09 | XMS_ITS | Encounter Summary ---
Author Organization [facility] Address [address] [place] [address]. [place], [place] [address] [place] [address] Care Team Providers Care Molder Sweep Name Role Phone Unavailable Primary Care Provider Unavailabl e Encounter Details Date Type Department Care Team (Latest Contact Info) Description 01/19/2017 Abstract [facility] Medical Group Social History Tobacco [...]
--- OUTSIDE RECORDS SUMMARY | 2024-07-15 03:09 | XMS_ITS | Encounter Summary ---
Author Organization [facility] Address [address] [place] [address]. [place] [address] [place] [address] Care Team Providers Care Poultry Dresser Name Role Phone Orlando Cortez MD Primary Care Provider [phone] Encounter Details Date Type Department Care Team (Late st Contact Info) Description 09/25/[address] [facility] [address] [place], [place] [id number] Magali Barreto, [facility] [address] [place] [address] [place] [address] Social History Tobacco Use Types Packs/Day Years [...] replacement documented in this encounter Care Teams Poultry Dresser Relationship Specialty Start Date End Date Orlando Cortez MD [address] [place] [phone] PCP - General FAMILY PRACTICE 06/27/18 documented as of this encounter
--- OUTSIDE RECORDS SUMMARY | 2024-07-15 03:09 | XMS_ITS | Encounter Summary ---
Author Organization [facility] Address [facility]6 [facility] [place] [address] [place] [address] Care Team Providers Care Director Oracle Name Role Phone Unavailable Primary Care Provider Unavailabl e Encounter Details Date Type Department Care Team (Late st Contact Info) Description 04/26/2017 Abstract [facility] [address] [place] [phone] Stephan Barreto FNP-WILLARD [address] [facility] [place] [address] Social History Tobacco Use Types Packs/Day Years Used Date Smoking Tobacco: Never Assessed Comments Unknown Sex and Gender Information Value Date Recorded Sex Assigned at Not on file Legal Sex Female 6:36 PM CDT Gender Identity Not on file Sexual Orientation Not on file documented as of this encounter Progress Notes * RADHA Hurtado - 04/26/2017 2:45 PM CDT Referred By / Reason Patient was referred by Primary Care Physician Name: Dr. Cortez Reason: Chief Complaint Chief Complaint: The patient presents to the office today with RIGHT elbow pain. History of Present Illness Sprain/Strain, Unspecified (Brief): The patient is being [...] history Social History ?? Former smoker (V15.82) (Z87.471) ?? No alcohol use ?? Primary language is Ugandan ?? Retired Current Meds 1. Atorvastatin Calcium 10 MG Oral Tablet; Therapy: (Recorded:53Vxs0223) to Recorded 2. Atorvastatin Calcium 40 MG Oral Tablet; Therapy: 26Ntk1926 to Recorded 3. Azithromycin 250 MG Oral Tablet; Therapy: 18May2016 to Recorded 4. Diclofenac Sodium 50 MG Oral Tablet Delayed Release; Take 1 tablet twice daily; Therapy: 83Cuj6450 to (Evaluate:05May2017) Requested for: 68Edz3296; Last Rx:22Vjq6382 Ordered 5. Gabapentin CAPS; Therapy: (Recorded:40Spz9115) to Recorded 6. Hibiclens 4 % External Liquid; Use as directed both the night before and morning of surgery; Therapy: 40Jfw6288 to (Last Rx:20Ypu5910) Ordered 7. Hydrocodone-Acetaminophen 7.5-325 MG Oral Tablet; 1- 2 Q 4 - 6 HRS PRN PAIN; Therapy: 73Ygz0908 to (Last Rx:71Phw8079) Ordered 8. Hydrocodone-Acetaminophen 7.5-325 MG Oral Tablet; TAKE 1 TABLET EVERY 6 HOURS NEEDED FOR PAIN; Therapy: 40Ukm3287 to (Evaluate:67Jxi7267); Last Rx:14Nvk3225 Ordered 9. Ibuprofen 600 MG Oral Tablet; Therapy: 11May2016 to Recorded 10. Ondansetron HCl - 8 MG Oral Tablet; 1 tablet PO Q 4-6 hours PRN for Nausea; Therapy: 63Avj5427 to (Last Rx:09Zsl0187) Ordered 11. PEG-3350/Electrolytes 236 GM Oral Solution Reconstituted; Therapy: 50Huz9252 to Recorded 12. Raloxifene HCl - 60 MG Oral Tablet; Therapy: 25Qdv9325 to Recorded 13. Sertraline HCl - 50 [...] hearing was normal. Pulmonary: no respiratory distress. Abdomen: non-tender. Right Elbow: EXAM today reveals stiff range of motion with pain, full elbow range of motion, positive Omid sign, moderate anterior ecchymosis, positive Phalens at elbow, decreased sensation 3 - 5 th fingers, positive Tinels at elbow, positive radial pulses, defect at anti cubital fossa with tenderness Results/Data XRAYS today of her RIGHT shoulder reveals mild glenohumeral osteoarthritis with no acute bony injury Findings: MRI was reviewed and discussed and reveals full thickness supraspinatus injury. EMG of her RIGHT upper extremity reveals mild bilateral carpal tunnel and no evidence of ulnar nerve injury. Assessment 1. Traumatic rupture of right distal biceps tendon, initial encounter (840.8) (S46.211A) 2. Osteoarthritis of right glenohumeral joint (715.91) (M19.011) Plan Osteoarthritis of right glenohumeral joint 1. Continue with our present treatment plan.; Status:Complete; Done: 26Apr2017 04:20PM Right shoulder pain 2. XR Shoulder 2+ View Rt; Status:Active; Requested for:26Apr2017; Traumatic rupture of right distal biceps tendon, initial encounter 3. MRI Elbow WO Rt; Status:Need Information - Financial Authorization; Requested for:26Apr2017; I have recommended MRI of her RIGHT elbow to evaluate the distal biceps. She'll return when this iscompleted. Signatures Electronically signed by : JERRY Zapata; Apr 26 2017 4:21PM EXTRUSION MANAGER (Author) documented in this encounter Plan of Treatment Not on file documented as of this encounter Procedures Procedure Name Priority Date/Time Associated Diagnosis Comments MRI ELBOW RT WO CON Routine 04/29/2017 2 :25 PM CDT XR SHOULDER RT MIN 2V Routine 04/26/2017 7:57 PM CDT documented in this encounter Results * MRI ELBOW RT WO CON (04/29/2017 2:25 PM CDT) Anatomical Region Laterality Modality Elbow Magnetic Resonan ce 04/29/2017 2:25 PM CDT 04/29/2017 2:25 PM CDT Narrative 04/29/2017 2:42 PM CDT [facility] ?? [address] ?? [place], [place] ? Patient Name: YOANDY SALINAS Date of : 1940 ?? Med Rec #: [id number] ??Age/Sex: 76/F ?Pt. Location: MRI ?? Attending Provider: TALI ARSHAD MD (TRACY) ?? Ordering Provider: STEPHAN BARRETO NP ? Study Date Order Number Procedure ?? 04/29/17 [id number] MRI Elbow WO Rt ? Signed ? Exam: MRI right elbow ? No comparison ? INDICATION: Traumatic rupture of the distal right biceps tendon. ? TECHNIQUE: Noncontrast multiplanar multisequence imaging. ? FINDINGS: There is a small elbow joint effusion. No bone marrow edema. The radial and ulnar collateral ligaments have a normal appearance. The origin of the common flexor tendon has a normal appearance. The origin of the common extensor tendon is enlarged, ill-defined, and shows areas of abnormal fluid signal. Additionally, there is a tiny bone density associated with it which measures about 2-3 mm. This could be correlated with radiographic findings. Suspect a partial tear of the tendon origin. ? The distal triceps tendon has a normal appearance. The musculotendinous junction regions of the biceps and brachialis are normal. Normal brachialis tendon. Axial images do not include the biceps tendon completely through its insertion point. Some mild tendon thickening and intermediate signal within the tendon on the distal most axial images would suggest tendinopathy or partial tear. ? IMPRESSION: ?? 1. Elbow joint effusion. ?? 2. Abnormal appearance of the lateral epicondyle region and the origin of the common extensor tendon. ?? 3. Partially visualized distal biceps tendon shows some abnormal intermediate signal. ? Electronically Signed By: SIVAN JEAN MD 04/29/17 1440 ? Dictated On: 04/29/171424 ?? Interpreted By: SIVAN JEAN MD ?? Transcribed On: 04/29/171424 - [facility] ?? Procedure Note Stephan Barreto APNP - 05/04/[address] Patient Name: YOANDY SALINAS Date of : 1940 Med Rec #: [id number] Age/Sex: 76/F Pt. Location: MRI Attending Provider: TALI ARSHAD MD (TRACY) Ordering Provider: STEPHAN BARRETO NP Study Date Order Number Procedure 04/29/17 [id number] MRI Elbow WO Rt Signed Exam: MRI right elbow No comparison INDICATION: Traumatic rupture of the distal right biceps tendon. TECHNIQUE: Noncontrast multiplanar multisequence imaging. FINDINGS: There is a small elbow joint effusion. No bone marrow edema.The radial and ulnar collateral ligaments have a normal appearance. The origin of the commonflexor tendon has a normal appearance. The origin of the common extensor tendon is enlarged,ill-defined, and shows areas of abnormal fluid signal. Additionally, there is a tiny bone densityassociated with it which measures about 2-3 mm. This could be correlated with radiographic findings. Suspecta partial tear of the tendon origin. The distal triceps tendon has a normal appearance. The musculotendinousjunction regions of the biceps and brachialis are normal. Normal brachialis tendon. Axial imagesdo not include the biceps tendon completely through its insertion point. Some mild tendon thickeningand intermediate signal within the tendon on the distal most axial images would suggesttendinopathy or partial tear. IMPRESSION: 1. Elbow joint effusion. 2. Abnormal appearance of the lateral epicondyle region and the origin ofthe common extensor tendon. 3. Partially visualized distal biceps tendon shows some abnormalintermediate signal. Electronically Signed By: SIVAN JEAN MD 04/29/17 144 Dictated On: 04/29/171424 Interpreted By: SIVAN JEAN MD Transcribed On: 04/29/17 1425 - [facility] us Stephan Barreto BED MANAGER-BC MRI Final Resu lt * XR SHOULDER RT MIN 2V (04/26/2017 7:57 PM CDT) Anatomical Region Laterality Modality Shoulder Radiographic Mely ging 04/26/2017 7:57 PM CDT 04/26/2017 7:57 PM CDT Narrative 04/26/2017 8:08 PM CDT [facility] ?? [address] ?? [place], [place] ? Patient Name: YOANDY SALINAS Date of : 1940 ?? Med Rec #: [id number] ??Age/Sex: 76/F ?Pt. Location: ORTHO ?? Attending Provider: STEPHAN BARRETO DIAGNOSTIC RADIOLOGIC TECHNOLOGIST ?? Ordering Provider: STEPHAN BARRETO DIAGNOSTIC RADIOLOGIC TECHNOLOGIST ? Study Date Order Number Procedure ?? 04/26/17 [id number] XR Shoulder 2 or more Views Rt ? Signed ? Examination: XR Shoulder 2 or more Views Rt ? Exam time: 04/26/2017 12:00 AM ? Clinical history: Chronic left shoulder pain ? Comparison: 10/14/2016 ? Technique: AP tangential and axillary views of the right shoulder obtained ? Findings: No soft tissue abnormality. No fracture or dislocation. Glenohumeral joint space is unremarkable. The right AC joint is unremarkable. ? IMPRESSION: ?? 1) No significant radiographic abnormality demonstrated. ? Electronically Signed By: MERY WHALEY MD 04/26/171957 ? Dictated On: 04/26/171956 ?? Interpreted By: MERY WHALEY MD ?? Transcribed On: 04/26/171956 - [facility] ?? Procedure Note Marc Day MD - 05/05/[address] Patient Name: YOANDY SALINAS Date of : 1940 Med Rec #: [id number] Age/Sex: 76/F Pt. Location: ORTHO Attending Provider: STEPHAN BARRETO NP Ordering Provider: STEPHAN BARRETO NP Study Date Order Number Procedure 04/26/17 [id number] XR Shoulder 2 or more Views Rt Signed Examination: XR Shoulder 2 or more Views Rt Exam time: 04/26/2017 12:00 AM Clinical history: Chronic left shoulder pain Comparison: 10/14/2016 Technique: AP tangential and axillary views of the right shoulderobtained Findings: No soft tissue abnormality. No fracture or dislocation.Glenohumeral joint space is unremarkable. The right AC joint is unremarkable. IMPRESSION: 1) No significant radiographic abnormality demonstrated. Electronically Signed By: MERY WHALEY MD 04/26/171957 Dictated On: 04/26/171956 Interpreted By: MERY WHALEY MD Transcribed On: 04/26/171956 - [facility] us Stephan Barreto BED MANAGER-BC GENERAL IMAGING Final Resu lt documented in this encounter Visit Diagnoses Not on filedocumented in this encounter
--- OUTSIDE RECORDS SUMMARY | 2024-07-15 03:09 | XMS_ITS | Encounter Summary ---
Author Organization [facility] Address [address] [place] [address]. [place] [address] [place] [address] Care Team Providers Care Transportation Aide Name Role Phone Orlando Cortez MD Primary Care Provider [phone] Encounter Details Date Type Department Care Team (Late st Contact Info) Description 02/24/2016 Abstract [facility] [address] [place] [address] Maximo Lara MD [address] [place] [address] Social History Tobacco Use Types Packs/Day Years [...] encounter Visit Diagnoses Diagnosis Primary osteoarthritis of right hip Primary localized osteoarthrosis, pelvic region and thigh documented in this encounter Care Teams Transportation Aide Relationship Specialty Start Date End Date Orlando Cortez MD [address] [place] [phone] PCP - General FAMILY PRACTICE 06/27/18 documented as of this encounter
--- OUTSIDE RECORDS SUMMARY | 2024-07-15 03:09 | XMS_ITS | Encounter Summary ---
Author Organization [facility] Address [facility] [place] [address] [place] [address] Care Team Providers Care Profile Saw Setup Operator Name Role Phone Orlando Cortez MD Primary Care Provider [phone] Encounter Details Date Type Department Care Team (Late st Contact Info) Description 04/13/2016 Abstract [facility] [address] [place] [address] Magali Barreto, [facility] [address] [place] [address] Social History Tobacco Use Types Packs/Day Years [...] as of this encounter Visit Diagnoses Diagnosis Radiculopathy of lumbar region Thoracic or lumbosacral neuritis or radiculitis, unspecified documented in this encounter Care Teams Profile Saw Setup Operator Relationship Specialty Start Date End Date Orlando Cortez MD [address] [place] [phone] PCP - General FAMILY PRACTICE 06/27/18 documented as of this encounter
--- OUTSIDE RECORDS SUMMARY | 2024-07-15 03:09 | XMS_ITS | Encounter Summary ---
Author Organization [facility] Address [address] [place] [address]. [place] [address] [place] [address] Care Team Providers Care Grill Associate Name Role Phone Orlando Cortez MD Primary Care Provider [phone] Encounter Details Date Type Department Care Team (Late st Contact Info) Description 04/26/2017 Abstract [facility] Diagnostic [facility] [address] [place] [address] Magali Barreto, [facility] [address] [place] [address] [place] [address] Social History Tobacco Use Types [...] parts of biceps, right arm, initial encounter documented in this encounter Care Teams Grill Associate Relationship Specialty Start Date End Date Orlando Cortez MD [address] [place] [phone] PCP - General FAMILY PRACTICE 06/27/18 documented as of this encounter
--- OUTSIDE RECORDS SUMMARY | 2024-07-15 03:09 | XMS_ITS | Encounter Summary ---
Author Organization [facility] Address [address] [place] [address]. [place] [address] [place] [address] Care Team Providers Care Exhibition Specialist Name Role Phone Orlando Cortez MD Primary Care Provider [phone] Encounter Details Date Type Department Care Team (Late st Contact Info) Description 04/21/2017 Abstract [facility] [address] [facility] [place] [address] Orlando Cortez MD [address] [place] [phone] Social History Tobacco Use Types Packs/Day [...] Cervicalgia documented in this encounter Care Teams Exhibition Specialist Relationship Specialty Start Date End Date Orlando Cortez MD [address] [place] [phone] PCP - General FAMILY PRACTICE 06/27/18 documented as of this encounter
--- OUTSIDE RECORDS SUMMARY | 2024-07-15 03:09 | XMS_ITS | Encounter Summary ---
Author Organization [facility] Address [address] [place] [address]. [place] [address] [place] [address] Care Team Providers Care Scaleman Name Role Phone Orlando Cortez MD Primary Care Provider [phone] Encounter Details Date Type Department Care Team (Late st Contact Info) Description 06/29/2016 Abstract [facility] Diagnostic Imaging [address] [place] [address] Magali Barreto, [facility] [address] [place] [address] Social History Tobacco Use Types Packs/Day Years [...] neoplasm documented in this encounter Care Teams Scaleman Relationship Specialty Start Date End Date Orlando Cortez MD [address] [place] [phone] PCP - General FAMILY PRACTICE 06/27/18 documented as of this encounter
--- OUTSIDE RECORDS SUMMARY | 2024-07-15 03:09 | XMS_ITS | Encounter Summary ---
Author Organization [facility] Address [address] [place] [address]. [place] [address] [place] [address] Care Team Providers Care Rolling Machine Operator Name Role Phone Orlando Cortez MD Primary Care Provider [phone] Encounter Details Date Type Department Care Team (Late st Contact Info) Description 10/14/2016 Abstract [facility] Diagnostic Imaging [address] [place] [address] Maximo Lara MD [address] [place], [place] [phone] Social History Tobacco Use Types Packs/Day Years [...] as of this encounter Visit Diagnoses Diagnosis Complete tear of right rotator cuff Complete rupture of rotator cuff documented in this encounter Care Teams Rolling Machine Operator Relationship Specialty Start Date End Date Orlando Cortez MD [address] [place] [phone] PCP - General FAMILY PRACTICE 06/27/18 documented as of this encounter
--- OUTSIDE RECORDS SUMMARY | 2024-07-15 03:09 | XMS_ITS | Encounter Summary ---
Author Organization [facility] Address [facility] [place] [address] [place] [address] Care Team Providers Care Sales Architect Name Role Phone Unavailable Primary Care Provider Unavailabl e Encounter Details Date Type Department Care Team (Late st Contact Info) Description 02/24/2016 Abstract [facility] [address] [place] [address] Maximo Lara MD [address] [place] [address] Social History Tobacco Use Types Packs/Day Years Used Date Smoking Tobacco: Never Assessed Comments Unknown Sex and Gender Information Value Date Recorded Sex Assigned at Not on file Legal Sex Female 6:36 PM CDT Gender Identity Not on file Sexual Orientation Not on file documented as of this encounter Procedure Notes * Maximo Lara MD - 02/24/2016 3:05 PM CDT [place] [address] [place], [place] [address] Patient: YOANDY SALINAS Med Rec#: [id number] Birthdate: 1940 Admit/Svce Date: 02/24/2016 Disch Date: Attending Md: MAXIMO LARA MD (TRACY) OPERATIVE REPORT PATIENT: Yoandy Salinas : 1940 MR #: [id number] Surgery Date: 02/24/2016 Chart Document DATE: 02/24/2016 Preoperative Diagnosis: End-stage right hip osteoarthritis. Postoperative Diagnosis: End-stage right hip osteoarthritis. Procedure: Right total hip arthroplasty using a DePuy size 7 high offset Vadito stem with a 56 mm Industry Gription cup and a polyethylene neutral liner with a +5, 36 mm head. SURGEON: Maximo Lara III, MD Anesthesia: Spinal with IV sedation. Indication: Yoandy Salinas is a 75-year-old female with functional disability because of right hip pain as a result of end-stage osteoarthritis. She has failed to see sustained relief with conservative measures and presents for the above procedure after reviewing risks and benefits. Description of Procedure: After spinal anesthesia was administered, the patient was positioned in a lateral decubitus position, and IV antibiotics given along with tranexamic acid. The right hip was prepped and draped in the usual sterile fashion. A posterolateral approach was used for exposure, and the gluteal fascia split, exposing short external rotators. The piriformis was released and tagged and the hip capsule opened using a T capsulotomy. The hip was dislocated and the template for neck resection in position and the neck marked. An oscillating saw was used to resect the neck and the head retrieved demonstrating flattening with eburnated bone and large osteophytes consistent with end-stage osteoarthritis. We then exposed the acetabulum, and the labrum was sharply resected. We began reaming with a 47 mm reamer and reamed up to 55 mm because of the irregular shape of the acetabulum. Large cysts were present in the acetabulum and then a curette was used to debride the fatty tissue inside. We then packed it with reamings and reverse reamed to impact the bone graft down into the cysts. We then impacted the 56 mm Gription cup, and 2 screws were inserted to reinforce stability. A trial neutral liner was inserted, and we turned our attention to the proximal femur. The box osteotome was used to lateralize access to the canal and Charnley awl used to localize the canal. We decided to use a Vadito stem in order to match the proximal anatomy better, and we reamed up to 6.7 reamer, and then broached up to a size 7. Excellent purchase was obtained. We trialed the standard and high offset necks with the +5 length, and good stability was present with the high offset, and leg length symmetry was appreciated. Intraoperative x-rays were obtained demonstrating good fill of the canal as well as good positioning. The trial components were removed, and the final polyethylene liner impacted. The stem was impacted and then the +5 x 36 mm head. The hip was reduced and excellent stability appreciated. The wound was copiously irrigated, and the capsule approximated using #1 Vicryl. The piriformis was reattached to the posterior aspect of the greater trochanter. The gluteal fascia along with space were approximated, and 2-0 Vicryl was used to close subcutaneous tissue, while skin peter completed the skin closure. Sterile dressings were applied and the drapes were withdrawn. The dressings were made occlusive using Medipore tape. The patient was then transferred to her hospital bed then to the PACU in good condition. Estimated blood loss was 300 mL, and sponge and needle counts were correct x2 following the procedure. /[facility] [id number] P P [id number] cc: MD Maximo Ramírez MD Chris P. Poirot, MD CP/[facility] [id number] E-Signed By P Maximo Lara MD 02/26/2016 09:07 A P [id number] cc: MD Maximo Ramírez MD Chris P. Poirot, MD documented in this encounter Plan of Treatment Not on file documented as of this encounter Visit Diagnoses Not on filedocumented in this encounter
--- OUTSIDE RECORDS SUMMARY | 2024-07-15 03:10 | XMS_ITS | Encounter Summary ---
Author Organization [facility] Address [facility] [place] [address] [place] [address] Care Team Providers Care Corrections Unit Supervisor Name Role Phone Orlando Cortez MD Primary Care Provider [phone] Encounter Details Date Type Department Care Team (Late st Contact Info) Description 03/06/2002 Abstract [facility] [address] [place] [address] , Generic ConversionMD Social History Tobacco Use Types Packs/Day Years [...] on filedocumented in this encounter Care Teams Corrections Unit Supervisor Relationship Specialty Start Date End Date Orlando Cortez MD [address] [place] [phone] PCP - General FAMILY PRACTICE 06/27/18 documented as of this encounter
--- OUTSIDE RECORDS SUMMARY | 2024-07-15 03:10 | XMS_ITS | Encounter Summary ---
Author Organization [facility] Address [address] [place] [address]. [place] [address] [place] [address] Care Team Providers Care Functional Tester Name Role Phone Unavailable Primary Care Provider Unavailabl e Encounter Details Date Type Department Care Team (Latest Contact Info) Description 02/17/2016 Abstract [facility] Magali Barreto, LOOM CLEANER-BC [address] [facility] [address] Social History Tobacco Use Types Packs/Day Years [...] Procedure Name Priority Date/Time Associated Diagnosis Comments BASIC METABOLIC PANEL Routine 02/17/2016 3:50 PM CDT CBC W/DIFF AUTOMATED Routine 02/17/2016 3:50 PM CDT documented in this encounter Results * (ABNORMAL) CBC W/DIFF AUTOMATED (02/17/2016 3:50 PM CDT) WBC 5.3 4.5 - 10.8 x10'3/uL [facility] TO EPIC CONVERSION RBC 4.26 4.10 - 5.40 x10'6/uL [facility] TO EPIC CONVERSION HGB 12.7 12.0 - 16.0 G/DL [facility] TO EPIC CONVERSION HCT 41.1 36.0 - 47.0 % [facility] TO EPIC CONVERSION MCV 96.5 78.0 - 100.0 FL [facility] TO EPIC CONVERSION MCH 29.8 27.0 - 31.0 PG [facility] TO EPIC CONVERSION MCHC 30.9(L) 33.0 - 36.0 G/DL [facility] TO EPIC CONVERSION RDW 13.1 11.5 - 14.5 % [facility] TO EPIC CONVERSION PLT 171 150 - 350 x10'3/uL [facility] TO EPIC CONVERSION MPV 11.3(H) 7.4 - 10.4 FL [facility] TO EPIC CONVERSION SEG NEUTROPHILS 59.6 % [facility] ROUP TO EPIC CONVERSION ABS. NEUTROPHILS 3.17 1.60 - 8.30 x10'3/uL [facility] TO EPIC CONVERSION LYMPHOCYTES 26.3 % [facility] TO EPIC CONVERSION ABS. LYMPHOCYTES 1.40 0.80 - 4.70 x10'3/uL [facility] TO EPIC CONVERSION MONOCYTES 10.3 % [facility] T O EPIC CONVERSION ABS. MONOCYTES 0.55 0.00 - 1.50 x10'3/uL [facility] TO EPIC CONVERSION EOSINOPHILS 2.6 % [facility] TO EPIC CONVERSION ABS. EOSINOPHILS 0.14 0.00 - 0.40 x10'3/uL [facility] TO EPIC CONVERSION IMMATURE GRANS % 0.4 % [facility] TO EPIC CONVERSION BASOPHILS 0.8 % [facility] T O EPIC CONVERSION ABS. IMMATURE GRANULOCYTES 0.02 0.00 - 0.03 x10'3/uL [facility] TO EPIC CONVERSION ABS. BASOPHILS 0.04 0.00 - 0.20 x10'3/uL [facility] TO EPIC CONVERSION ABS. NUCLEATED RBC'S 0.00 0.00 x10'3/uL [facility] TO EPIC CONVERSION NRBC 0.0 % [facility] T O EPIC CONVERSION 02/17/2016 3:50 PM CDT 02/17/2016 3:50 PM CDT Narrative [facility] TO EPIC CONVERSION - 02/17/2016 4:23 PM CDT Result Communication: No patient communication needed at this time us Magali Barreto LOOM CLEANER- LABORATORY Final Resu lt [facility] TO EPIC CONVERSION * BASIC METABOLIC PANEL (02/17/2016 3:50 PM CDT) Pathologist [facility] GLUCOSE 98 70 - 99 MG/DL [facility] TO EPIC CONVERSION BUN 15 10 - 20 MG/DL [facility] TO EPIC CONVERSION CREATININE S/P/B 0.89 0.57 - 1.11 MG/DL [facility] TO EPIC CONVERSION SODIUM S/P/B 142 136 - 145 MMOL/L [facility] TO EPIC CONVERSION POTASSIUM S/P/B 4.3 3.5 - 5.1 MMOL/L [facility] TO EPIC CONVERSION CHLORIDE S/P/B 106 98 - 107 MMOL/L [facility] TO EPIC CONVERSION CO2 27.0 22 - 29 MMOL/L [facility] TO EPIC CONVERSION CALCIUM S/P/B 9.0 8.4 - 10.2 MG/DL [facility] TO EPIC CONVERSION GFR ESTIMATE >60 >60 ML/MIN/1.7 3 M2 [facility] TO EPIC CONVERSION EGFR AFR. AMER. >60 >60 ML/MIN/1.7 3 M2 [facility] TO EPIC CONVERSION ANION GAP 9.0 7 - 16 MMOL/L [facility] TO EPIC CONVERSION 02/17/2016 3:50 PM CDT 02/17/2016 3:50 PM CDT Narrative [facility] TO EPIC CONVERSION - 02/17/2016 4:45 PM CDT Result Communication: No patient communication needed at this time us Magali Barreto LOOM CLEANER- LABORATORY Final Resu lt [facility] TO EPIC CONVERSION documented in this encounter Visit Diagnoses Not on filedocumented in this encounter
--- OUTSIDE RECORDS SUMMARY | 2024-07-15 03:10 | XMS_ITS | Encounter Summary ---
Author Organization [facility] Address [address] [place] [address]. [place] [address] [place] [address] Care Team Providers Care Retail Pharmacist Name Role Phone Unavailable Primary Care Provider Unavailabl e Encounter Details Date Type Department Care Team (Latest Contact Info) Description 02/17/2016 Abstract [facility] Magali Barreto, POTATO CHIP PROCESSING SUPERVISOR-BC [address] [facility] [place] [address] Social History Tobacco Use Types Packs/Day Years [...] Procedure Name Priority Date/Time Associated Diagnosis Comments URINALYSIS WI REFLEX TO CULTURE Routine 02/17/2016 3:54 PM CDT documented in this encounter Results * (ABNORMAL) URINALYSIS WI REFLEX TO CULTURE (02/17/2016 3:54 PM CDT) COLOR (U) DARK YELLOW [facility] TO EPIC CONVERSION TRANSPARENCY CLEAR [facility] P TO EPIC CONVERSION SPECIFIC GRAVITY (U) 1.020 1.000 - 1.025 [facility] TO EPIC CONVERSION U PH 6.0 5.0 - 8.0 [facility] T O EPIC CONVERSION LEUKOCYTES (U) NEGATIVE [facility] OUP TO EPIC CONVERSION NITRITES NEGATIVE [facility] T O EPIC CONVERSION PROTEIN (U) NEGATIVE [facility] TO [facility]IC CONVERSION GLUCOSE NEGATIVE [facility] T O EPIC CONVERSION KETONES MG/DL (U) TRACE(A) [facility] TO [facility]IC CONVERSION UROBILINOGEN 0.2 <1.0 EU/DL [facility] TO EPIC CONVERSION BILIRUBIN (U) NEGATIVE [facility] UP TO EPIC CONVERSION BLOOD (U) NEGATIVE [facility] T O EPIC CONVERSION WBC 0-5 /HPF [facility] T O EPIC CONVERSION EPI/HPF FEW /LPF [facility] T O EPIC CONVERSION MUCUS PRESENT [facility] T O EPIC CONVERSION OTHER CASTS (U) HYALINE 10-20 /LPF [facility] TO EPIC CONVERSION REFLEX URINE CULTURE: NOT INDICATED [facility] TO [facility] CONVERSION 02/17/2016 3:54 PM CDT 02/17/2016 3:54 PM CDT Narrative [facility] TO EPIC CONVERSION - 02/17/2016 5:11 PM CDT Result Communication: No patient communication needed at this time us Magali Barreto POTATO CHIP PROCESSING SUPERVISOR-BC URINE ORDERABLES Final Res ult [facility] TO EPIC CONVERSION documented in this encounter Visit Diagnoses Not on filedocumented in this encounter
--- OUTSIDE RECORDS SUMMARY | 2024-07-15 03:10 | XMS_ITS | Encounter Summary ---
Author Organization [facility] Address [facility]6 [place] [address] [place] [address] Care Team Providers Care Game Show Host Name Role Phone Unavailable Primary Care Provider Unavailabl e Encounter Details Date Type Department Care Team (Latest Contact Info) Description 02/17/2016 Abstract [facility] Magali Barreto, SALES PLANNING ANALYST-BC [address] [facility] [address] [address] [place] [address] Social History Tobacco Use Types Packs/Day Years [...] Procedure Name Priority Date/Time Associated Diagnosis Comments MRSA SCREENING Routine 02/17/2016 3:56 PM CDT documented in this encounter Results * MRSA SCREENING (02/17/2016 3:56 PM CDT) MRSA BY PCR NASAL METHICILLIN RESISTANT STAPH AUREUS NOT DETECTED PERFORMED AT [facility], [facility] [address] [place], [place] [address]. [phone] [facility] TO EPIC CONVERSION SPECIMEN SOURCE RESPIRATORY, NOSE [facility] TO [facility]IC CONVERSION 02/17/2016 3:56 PM CDT 02/17/2016 3:56 PM CDT Narrative [facility] TO EPIC CONVERSION - 02/19/2016 2:47 PM CDT Result Communication: No patient communication needed at this time us Magali Barreto SALES PLANNING ANALYST-BC MICROBIOLOGY - GENERAL ORD ERABLES Final Result [facility] TO EP[facility] CONVERSION documented in this encounter Visit Diagnoses Not on filedocumented in this encounter
--- OUTSIDE RECORDS SUMMARY | 2024-07-15 03:10 | XMS_ITS | Encounter Summary ---
Author Organization [facility] Address [facility]6 [facility] [place] [address] [place] [address] Care Team Providers Care Bank Vault Attendant Name Role Phone Orlando Cortez MD Primary Care Provider [phone] Encounter Details Date Type Department Care Team (Late st Contact Info) Description 05/16/2003 Abstract [facility] [address] [place] [address] , Generic MD Olivia Social History Tobacco [...] on filedocumented in this encounter Care Teams Bank Vault Attendant Relationship Specialty Start Date End Date Orlando Cortez MD [address] [place] [phone] PCP - General FAMILY PRACTICE 06/27/18 documented as of this encounter
--- OUTSIDE RECORDS SUMMARY | 2024-07-15 03:10 | XMS_ITS | Encounter Summary ---
Author Organization [facility] Address [facility]6 [facility] [place] [address] [place] [address] Care Team Providers Care Beer Merchant Name Role Phone Orlando Cortez MD Primary Care Provider [phone]- [phone] Encounter Details Date Type Department Care Team (Late st Contact Info) Description 06/27/2003 Abstract [facility] [address] [place] [address] , Generic ConversionMD Social History Tobacco Use [...] on filedocumented in this encounter Care Teams Beer Merchant Relationship Specialty Start Date End Date Orlando Cortez MD [address] [place] [phone] PCP - General FAMILY PRACTICE 06/27/18 documented as of this encounter
--- OUTSIDE RECORDS SUMMARY | 2024-07-15 03:10 | XMS_ITS | Encounter Summary ---
Author Organization [facility] Address [facility]6 [place] [address] [place] [address] Care Team Providers Care Template Clerk Name Role Phone Orlando Cortez MD Primary Care Provider Encounter Details Date Type Department Care Team (Late st Contact Info) Description 01/11/2001 Abstract [facility] [address] [place] [address] , Generic MD Olivia Social History Tobacco [...] on filedocumented in this encounter Care Teams Template Clerk Relationship Specialty Start Date End Date Orlando Cortez MD [address] [place] [phone] PCP - General FAMILY PRACTICE 06/27/18 documented as of this encounter
--- OUTSIDE RECORDS SUMMARY | 2024-07-15 03:10 | XMS_ITS | Encounter Summary ---
Author Organization [facility] Address [address] [place] [address]. [place] [address] [place] [address] Care Team Providers Care Lpn Per Diem Name Role Phone Orlando Cortez MD Primary Care Provider +- [phone] Encounter Details Date Type Department Care Team (Late st Contact Info) Description 08/31/2005 Abstract [facility] [address] [facility] [address] [address] [place] [address] Francisco Valentine MD [address] [place] [phone] Social History Tobacco Use Types Packs/Day [...] on filedocumented in this encounter Care Teams Lpn Per Diem Relationship Specialty Start Date End Date Orlando Cortez MD [address] [place] [phone] PCP - General FAMILY PRACTICE 06/27/18 documented as of this encounter
--- OUTSIDE RECORDS SUMMARY | 2024-07-15 03:10 | XMS_ITS | Encounter Summary ---
Author Organization [facility] Address [facility] [place] [address] [place] [address] Care Team Providers Care Co Pilot Name Role Phone Orlando Cortez MD Primary Care Provider [phone]- [phone] Encounter Details Date Type Department Care Team (Late st Contact Info) Description 11/26/2003 Abstract [facility] [address] [place] [address] , Generic MD Olivia Social History Tobacco [...] on filedocumented in this encounter Care Teams Co Pilot Relationship Specialty Start Date End Date Orlando Cortez MD [address] [place] [phone] PCP - General FAMILY PRACTICE 06/27/18 documented as of this encounter
--- OUTSIDE RECORDS SUMMARY | 2024-07-15 03:10 | XMS_ITS | Encounter Summary ---
Author Organization [facility] Address [facility] [place] [address] [place] [address] Care Team Providers Care Fishing Guide Name Role Phone Unavailable Primary Care Provider Unavailabl e Encounter Details Date Type Department Care Team (Latest Contact Info) Description 02/04/[address] [facility], Generic Conversion, Social History Tobacco Use Types [...] Priority Date/Time Associated Diagnosis Comments MG SCREENING TARA DIGI Routine 02/04/2016 12:52 PM CDT documented in this encounter Results * MG SCREENING TARA DIGI (02/04/2016 12:52 PM CDT) Anatomical Region Laterality Modality Breast Bilateral Mammography 02/04/2016 12:5 2 PM CDT 02/04/2016 12:52 PM CDT Narrative 02/04/2016 12:56 PM CDT [facility] ?? [facility] ?? [place], [place] ? Patient Name: YOANDY SALINAS Date of : 1940 ?? Med Rec #: [id number] ??Age/Sex: 75/F ?Pt. Location: MAMMO ?? Attending Provider: TALI ARSHAD MD (TRACY) ?? Ordering Provider: AMBIKA DODGE MD ? Study Date Order Number Procedure ?? 02/04/16 [id number] MG Screening Mammogram Bi+ ? Signed ? Examination: BILATERAL SCREENING MAMMOGRAM ? Clinical history: 75 year old female routine screening. A sister diagnosed breast cancer age ?? 50. ? Comparison: Screening 07/21 ? Technique: Digital CC ??MLO views. Study read with the assistance of a computer- aided detection ?? system. ? Tissue density: The breast tissue is almost entirely fatty. ? Findings: Mild diffuse global prominence of the glandular tissue along with mild diffuse ?? bilateral skin thickening. Constellation of findings when accounting for differences in ?? technique probably relates to some degree of interval weight loss. Few diffusely scattered and ?? some minimal vascular calcifications. No suspicious grouping of microcalcifications, ?? distortion, or new suspicious nodule 3 dimensionally demonstrated in either breast. ? IMPRESSION: ?? No interval features to suggest malignancy. ?? Additional stable and benign findings, detailed above. ?? In the absence of clinical symptoms, return for annual screening. ? Recommendation: Routine screening mammogram ??Bilateral ??in 1 Year ? Assessment: ACR BI-RADS CATEGORY 2 - BENIGN. ? Electronically Signed By: OSIEL TEE M.D. 02/04/16 1254 ? Dictated On: 02/04/16 1252 ?? Interpreted By: OSIEL TEE M.D. ?? Transcribed On: 02/04/16 1252 - INFCE ?? Procedure Note Marc Day MD - 05/05/[address] Patient Name: YOANDY SALINAS Date of : 1940 [facility] Rec #: [id number] Age/Sex: 75/F Pt. Location: MAMMO Attending Provider: TALI ARSHAD MD (TRACY) Ordering Provider: AMBIKA DODGE MD Study Date Order Number Procedure 02/04/16 [id number] MG Screening Mammogram Bi+ Signed Examination: BILATERAL SCREENING MAMMOGRAM Clinical history: 75 year old female routine screening. A sisterdiagnosed breast cancer age 50. Comparison: Screening 07/21 Technique: Digital CC MLO views. Study read with the assistance of [employer]- aided detection system. Tissue density: The breast tissue is almost entirely fatty. Findings: Mild diffuse global prominence of the glandular tissue alongwith mild diffuse bilateral skin thickening. Constellation of findings when accounting fordifferences in technique probably relates to some degree of interval weight loss. Fewdiffusely scattered and some minimal vascular calcifications. No suspicious grouping ofmicrocalcifications, distortion, or new suspicious nodule 3 dimensionally demonstrated ineither breast. IMPRESSION: No interval features to suggest malignancy. Additional stable and benign findings, detailed above. In the absence of clinical symptoms, return for annual screening. Recommendation: Routine screening mammogram Bilateral in 1 Year Assessment: ACR BI-RADS CATEGORY 2 - BENIGN. Electronically Signed By: OSIEL TEE M.D. 02/04/16 1254 Dictated On: 02/04/16 1252 Interpreted By: OSIEL TEE M.D. Transcribed On: 02/04/16 1252 - INFCE us Generic Conversion Md MD GARCIA Final R esult documented in this encounter Visit Diagnoses Not on filedocumented in this encounter
--- OUTSIDE RECORDS SUMMARY | 2024-07-15 03:10 | XMS_ITS | Encounter Summary ---
Author Organization [facility] Address [facility] [place] [address] [place] [address] Care Team Providers Care Access Tech Name Role Phone Orlando Cortez MD Primary Care Provider Encounter Details Date Type Department Care Team (Late st Contact Info) Description 05/25/1996 Abstract [facility] [address] [place] [address] , Generic MD Olivia Social History Tobacco [...] on filedocumented in this encounter Care Teams Access Tech Relationship Specialty Start Date End Date Orlando Cortez MD [address] [place] [phone] PCP - General FAMILY PRACTICE 06/27/18 documented as of this encounter
--- OUTSIDE RECORDS SUMMARY | 2024-07-15 03:10 | XMS_ITS | Encounter Summary ---
Author Organization [facility] Address [address] [place] [address]. [place] [address] [place] [address] Care Team Providers Care Stove Refinisher Name Role Phone Orlando Cortez MD Primary Care Provider +- [phone] Encounter Details Date Type Department Care Team (Late st Contact Info) Description 05/27/2004 Abstract [facility] [address] [place] [address] Francisco Valentine MD [address] [place] [phone] Social History Tobacco Use Types Packs/Day [...] on filedocumented in this encounter Care Teams Stove Refinisher Relationship Specialty Start Date End Date Orlando Cortez MD [address] [place] [phone] PCP - General FAMILY PRACTICE 06/27/18 documented as of this encounter
--- OUTSIDE RECORDS SUMMARY | 2024-07-15 03:10 | XMS_ITS | Encounter Summary ---
Author Organization [facility] Address [address] [place] [address]. [place] [address] [place] [address] Care Team Providers Care R And D Lab Technician Name Role Phone Orlando Cortez MD Primary Care Provider [phone] Encounter Details Date Type Department Care Team (Late st Contact Info) Description 02/04/2016 Abstract [facility] [address] [facility] [place] [address] Maximo Lara MD [address] [place] [address] Social History Tobacco Use Types Packs/Day Years [...] mammogram documented in this encounter Care Teams R And D Lab Technician Relationship Specialty Start Date End Date Orlando Cortez MD [address] [place] [phone] PCP - General FAMILY PRACTICE 06/27/18 documented as of this encounter
--- OUTSIDE RECORDS SUMMARY | 2024-07-15 03:10 | XMS_ITS | Encounter Summary ---
Author Organization [facility] Address [address] [place] [address]. [place] [address] [place] [address] Care Team Providers Care Scientific Helper Name Role Phone Orlando Cortez MD Primary Care Provider [phone] Encounter Details Date Type Department Care Team (Late st Contact Info) Description 03/13/2004 Abstract [facility] [address] [place] [address] Sky Alfonso MD [address] [place] [phone] Social History Tobacco Use Types Packs/Day Years [...] on filedocumented in this encounter Care Teams Scientific Helper Relationship Specialty Start Date End Date Orlando Cortez MD [address] [place] [phone] PCP - General FAMILY PRACTICE 06/27/18 documented as of this encounter
--- OUTSIDE RECORDS SUMMARY | 2024-07-15 03:10 | XMS_ITS | Encounter Summary ---
Author Organization [facility] Address [address] [place] [address]. [place] [address] [place] [address] Care Team Providers Care Lead Security Officer Name Role Phone Orlando Cortez MD Primary Care Provider +- [phone] Encounter Details Date Type Department Care Team (Late st Contact Info) Description 08/01/2009 Abstract [facility] [address] [facility] [place] [address] Francisco Valentine MD [address] [place] [phone] Social History Tobacco Use Types Packs/Day [...] of this encounter Visit Diagnoses Diagnosis Other screening mammogram documented in this encounter Care Teams Lead Security Officer Relationship Specialty Start Date End Date Orlando Cortez MD [address] [place] [phone] PCP - General FAMILY PRACTICE 06/27/18 documented as of this encounter
--- OUTSIDE RECORDS SUMMARY | 2024-07-15 03:10 | XMS_ITS | Encounter Summary ---
Author Organization [facility] Address [address] [place] [address]. [place] [address] [place] [address] Care Team Providers Care Hog Tender Name Role Phone Orlando Cortez MD Primary Care Provider +- [phone] Encounter Details Date Type Department Care Team (Late st Contact Info) Description 04/24/2009 Abstract [facility] [address] [place] [address] Francisco Valentine MD [address] [place] [phone] Social History Tobacco Use Types Packs/Day [...] on filedocumented in this encounter Care Teams Hog Tender Relationship Specialty Start Date End Date Orlando Cortez MD [address] [place] [phone] PCP - General FAMILY PRACTICE 06/27/18 documented as of this encounter
--- OUTSIDE RECORDS SUMMARY | 2024-07-15 03:10 | XMS_ITS | Encounter Summary ---
Author Organization [facility] Address [address] [place] [address]. [place] [address] [place] [address] Care Team Providers Care Echocardiographer Name Role Phone Orlando Cortez MD Primary Care Provider [phone] Encounter Details Date Type Department Care Team (Late st Contact Info) Description 02/04/2016 Abstract [facility] [address] [place] [address] Maximo Lara MD [address] [place] [address] Social History Tobacco Use Types [...] thigh documented in this encounter Care Teams Echocardiographer Relationship Specialty Start Date End Date Orlando Cortez MD [address] [place] [phone] PCP - General FAMILY PRACTICE 06/27/18 documented as of this encounter
--- OUTSIDE RECORDS SUMMARY | 2024-07-15 03:10 | XMS_ITS | Encounter Summary ---
Author Organization [facility] Address [facility] [place] [address] [place] [address] Care Team Providers Care Meter Inspector Name Role Phone Orlando Cortez MD Primary Care Provider [phone] Encounter Details Date Type Department Care Team (Late st Contact Info) Description 05/30/2003 Abstract [facility] [address] [place] [address] , Generic ConversionMD Social History Tobacco Use [...] on filedocumented in this encounter Care Teams Meter Inspector Relationship Specialty Start Date End Date Orlando Cortez MD [address] [place] [phone] PCP - General FAMILY PRACTICE 06/27/18 documented as of this encounter
--- OUTSIDE RECORDS SUMMARY | 2024-07-15 03:10 | XMS_ITS | Encounter Summary ---
Author Organization [facility] Address [facility]6 [facility] [place] [address] [place] [address] Care Team Providers Care Scratcher Tender Name Role Phone Orlando Cortez MD Primary Care Provider [phone] Encounter Details Date Type Department Care Team (Late st Contact Info) Description 02/15/1996 Abstract [facility] [address] [place] [address] , Generic ConversionMD Social History Tobacco Use [...] on filedocumented in this encounter Care Teams Scratcher Tender Relationship Specialty Start Date End Date Orlando Cortez MD [address] [place] [phone] PCP - General FAMILY PRACTICE 06/27/18 documented as of this encounter
--- OUTSIDE RECORDS SUMMARY | 2024-07-15 03:10 | XMS_ITS | Encounter Summary ---
Author Organization [facility] Address [address] [place] [address]. [place] [address] [place] [address] Care Team Providers Care Sorter Packer Name Role Phone Orlando Cortez MD Primary Care Provider +- [phone] Encounter Details Date Type Department Care Team (Late st Contact Info) Description 09/08/2006 Abstract [facility] [address] [facility] [place] [address] Francisco Valentine MD [address] [place] [phone] Social History Tobacco Use Types Packs/Day [...] on filedocumented in this encounter Care Teams Sorter Packer Relationship Specialty Start Date End Date Orlando Cortez MD [address] [place] [phone] PCP - General FAMILY PRACTICE 06/27/18 documented as of this encounter
--- OUTSIDE RECORDS SUMMARY | 2024-07-15 03:10 | XMS_ITS | Encounter Summary ---
Author Organization [facility] Address [address] [place] [address]. [place] [address] [place] [address] Care Team Providers Care Prepared Foods Team Leader Name Role Phone Unavailable Primary Care Provider Unavailabl e Encounter Details Date Type Department Care Team (Late st Contact Info) Description 02/04/2016 Abstract [facility] [address] [place] [phone] Maximo Lara MD [address] [place] [address] Social History Tobacco Use Types Packs/Day Years Used Date Smoking Tobacco: Never Assessed Comments Unknown Sex and Gender Information Value Date Recorded Sex Assigned at Not on file Legal Sex Female 6:36 PM CDT Gender Identity Not on file Sexual Orientation Not on file documented as of this encounter Last Filed Vital Signs Vital Sign Reading Time Taken Comments Blood Pressure 140/71 02/04/2016 12:00 PM CDT Pulse 84 02/04/2016 12:00 PM CDT Temperature - - Respiratory Rate - - Oxygen Saturation - - Inhaled Oxygen Concentration - - Weight 81.6 kg (180 lb) 02/04/2016 12:00 PM CDT Height 177.8 cm (5' 10) 02/04/2016 12:00 PM CDT Body Mass Index 25.83 02/04/2016 12:00 PM CDT documented in this encounter Progress Notes * Maximo Lara MD - 02/04/2016 11:00 AM CDT Referred By / Reason Patient was referred by Primary Care Physician Name: Dr. Valentine Reason: Chief Complaint 1. Hip Pain Chief Complaint: The patient presents to the office today with RIGHT hip pain. History of Present Illness HPI: Patient comes to clinic today with complaints of RIGHT hip pain. She denies any injury. She has pain all the time. She uses a wall to walk and also a cane. She can't walk long distances due to her pain. She also has severe night pain that keeps her awake. She denies tingling and numbness. She has had pain for years. she reports she can't do daily activities due to her pain. She also states she has giving away episodes that cause her to almost fall. She uses a walker in her home to get around but the cane when outside. She also can't walk through stores to shop due to her pain. She has tried ibuprofen with no relief. She also uses Tramadol. Review of Systems See HPI for pertinent positives. Active Problems 1. Chronic right hip pain (719.45,338.29) (M25.551,G89.29) 2. Osteoarthritis of right hip (715.95) (M16.11) Past Medical History 1. History Of Hypercholesterolemia (V12.29) (Z86.39) Surgical History 1. History of Knee Surgery Left 2. History of Knee Surgery Right Social History ?? Former smoker (V15.82) (Z87.891) ?? No alcohol use ?? Primary language is [place] ?? Retired Current Meds 1. Atorvastatin Calcium 10 MG Oral Tablet; Therapy: (Recorded:15Tiw8074) to Recorded 2. Gabapentin CAPS; Therapy: (Recorded:17Tit8783) to Recorded Allergies 1. No Known Allergies Vitals Recorded: 25Pcx7974 12:00PM Heart Rate 84 Systolic 140 Diastolic 71 Not able to obtain height Patient stated height Patient stated height Height 5 ft 10 in Weight 180 lb BMI Calculated 25.83 BSA Calculated 2 Unable to obtain weight Patient stated weight Patient stated weight Physical Exam Constitutional: alert and in no acute distress. Neurological:. the patient was oriented to person, place, and time. mood and affect were appropriate. Eyes: pupils were equal in size, round, reactive to light, with normal accommodation. ENT: hearing was normal. Neck: the appearance of the neck was normal. Cardiovascular: heart rate and rhythm were normal. Pulmonary: no respiratory distress. Abdomen: non-tender. Skin: no injuries or skin lesions on the right lower extremity. Right Hip: EXAM today reveals painful with internal and external rotation, lateral tenderness, NVI,groin pain Results/Data XRAYS today of her RIGHT hip reveals severe bone on bone end stage osteoarthritis Findings: Assessment 1. Osteoarthritis of right hip (715.95) (M16.11) Plan Chronic right hip pain 1. MRSA PCR SCREEN; Status:Active; Requested for:[id number]; 2. Urinalysis, Cult if Indicated; Status:Active; Requested for:[id number]; 3. XR Hip 2+ View Rt; Status:Active; Requested for:[id number]; Osteoarthritis of right hip 4. Hydrocodone-Acetaminophen 7.5-325 MG Oral Tablet (Arnold); 1- 2 Q 4 - 6 HRS PRN PAIN PMH: History Of Hypercholesterolemia 5. Basic Metabolic Prof ( BMP ); Status:Active; Requested for:73Vtt1570; 6. CBC with Differential; Status:Active; Requested for:84Mov3002; Unlinked 7. Continue with our present treatment plan.; Status:Complete; Done: [id number] The planned procedure/s, the expected benefits,the associated risks,possible complications, and alternatives to the procedure/s have been discussed in detail with the patient or family. They state that they understand, have no further questions and agree to proceed with the procedure/s as outlined. Procedures/Surgery: 02/24/2016 RIGHT total hip arthroplasty In ht of her XRAY evaluation and extreme functional disability due to her hip pain, I have recommended proceeding with arthroplasty. She'll return 2 weeks after surgery for post operative evaluation. Signatures Electronically signed by : RADHA Zapata; Feb 04 2016 12:35PM TANK OPERATOR (Author) Electronically signed by : RADHA Zapata; Feb 04 2016 12:37PM TANK OPERATOR (Author) documented in this encounter Plan of Treatment Not on file documented as of this encounter Procedures Procedure Name Priority Date/Time Associated Diagnosis Comments XR PELVIS AP+RT HIP 1V Routine 02/04/2016 3:10 PM CDT documented in this encounter Results * XR PELVIS AP+RT HIP 1V (02/04/2016 3:10 PM CDT) Anatomical Region Laterality Modality Pelvis, Hip Radiographic Mely ging 02/04/2016 3:10 PM CDT 02/04/2016 3:10 PM CDT Narrative 02/04/2016 3:14 PM CDT [facility] ?? [address] ?? [place], [place] ? Patient Name: YOANDY SALINAS Date of : 1940 ?? Med Rec #: [id number] ??Age/Sex: 75/F ?Pt. Location: ORTHO ?? Attending Provider: MAXIMO LARA MD (TRACY) ?? Ordering Provider: MAXIMO LAAR MD (TRACY) ? Study Date Order Number Procedure ?? 02/04/16 [id number] XR Hip w Pelv Uni 1 Vw Rt ? Signed ? Exam: Pelvis x-ray ? No comparison ? Indication: Right hip pain for 7 months. ? Technique: One view the pelvis and one view of the right hip. ? Findings: Advanced osteoarthritis in the right hip with joint space reduction and mixed ?? sclerotic and lucent areas within the femoral head and acetabulum. Femoral head osteophytes. ?? Much milder degenerative changes on the left side. ? Impression: Bilateral osteoarthritis, right greater than left. ? Electronically Signed By: SIVAN JEAN MD 02/04/16 1513 ? Dictated On: 02/04/16 1510 ?? Interpreted By: SIVAN JEAN MD ?? Transcribed On: 02/04/16 1510 - INFCE ?? Procedure Note Marc Day MD - 05/04/[address] Patient Name: YOANDY SALINAS Date of : 1940 Med Rec #: [id number] Age/Sex: 75/F Pt. Location: ORTHO Attending Provider: MAXIMO LARA MD (TRACY) Ordering Provider: MAXIMO LARA MD (TRACY) Study Date Order Number Procedure 02/04/16 [id number] XR Hip w Pelv Uni 1 Vw Rt Signed Exam: Pelvis x-ray No comparison Indication: Right hip pain for 7 months. Technique: One view the pelvis and one view of the right hip. Findings: Advanced osteoarthritis in the right hip with joint spacereduction and mixed sclerotic and lucent areas within the femoral head and acetabulum.Femoral head osteophytes. Much milder degenerative changes on the left side. Impression: Bilateral osteoarthritis, right greater than left. Electronically Signed By: SIVAN JEAN MD 02/04/16 1513 Dictated On: 02/04/16 151 Interpreted By: SIVAN JEAN MD Transcribed On: 02/04/16 151 - INFCE us Maximo Lara MD GENERAL IMAGING Final Result documented in this encounter Visit Diagnoses Not on filedocumented in this encounter
--- OUTSIDE RECORDS SUMMARY | 2024-07-15 03:32 | XMS_ITS | Encounter Summary ---
Author Organization [facility] Address [address] [place] [address] Phone Care Team Providers Care Electrical Tech Name Role Phone Orlando Cortez MD Primary Care Provider [phone] Reason for Visit * Auth/Cert (Routine) Specialty Diagnoses / Procedures Referred By Mecca alfaro Referred To Contact Referral ID Status Reason Start Date Expiration Date Visits Re quested Visits Authorized [id number] 1 1 Encounter Details Date Type Department Care Team (Late st Contact Info) Description 04/13/2024 9:30 AM CDT Home Care Visit [facility] [address] [place] [address] Jennifer Pascual, [facility] PT - HOME VISIT Social History Tobacco Use Types Packs/Day Years Used Date Smoking Tobacco: Never Assessed Comments Unknown Sex and Gender Information Value Date Recorded Sex Assigned at Not on file Legal Sex Female 8:18 AM CDT Gender Identity Not on file Sexual Orientation Not on file documented as of this encounter Last Filed Vital Signs Vital Sign Reading Time Taken Comments Blood Pressure 138/78 04/13/2024 9:31 AM CDT Pulse 54 04/13/2024 9:31 AM CDT Temperature 36.4 ??C (97.6 ??F) 04/13/2024 9:31 AM CD T Respiratory Rate 16 04/13/2024 9:31 AM CDT Oxygen Saturation 95% 04/13/2024 9:31 AM CDT Inhaled Oxygen Concentration - - Weight - - Height - - Body Mass Index - - documented in this encounter Plan of Treatment Not on file documented as of this encounter Visit Diagnoses Not on filedocumented in this encounter Home Health Visit - Care Plan Visit Details Visit Type -PT - HOME VISIT Discipline -Physical Therapy Problems Problem Description Start Date Status Goals Interve ntions PT COMPREHENSIVE Disciplines: Physical Therapy 04/07/2024 Active 6 goals linked to scheduled/document ed interventions 6 goal interventions scheduled/documen danyelle in this visit THERAPY DISEASE MANAGEMENT (O) Disciplines: Therapies 04/07/2024 Active - 1 problem intervention scheduled/documen danyelle in this visit PHYSICAL THERAPY GENERAL (O) Disciplines: Physical Therapy Physical Therapy General Order 04/07/2024 Active 1 goal linked to scheduled/document ed intervention 1 goal intervention scheduled/documen danyelle in this visit Goals Goal Associated Problem Outcome Goal Met? Visit Notes PT Balance Description: Residential Goal: Patient will show improved dynamic standing balance as demonstrated by improved Tinetti score from 1728 to 2028 in order to lower risk for falls and Improve functional mobility. To be met by 04-28-24. PT COMPREHENSIVE No PT Caregiver Assist/Safety Description: retirement Goal: Caregiver will be able to safely demonstrate patient assistance with home exercise program, transfers, ambulation and stair negotiation in order to safely assist pt when PT staff is not present. To be met by 04-28-24. PT COMPREHENSIVE No PT Stairs and Home Exit Description: Residential Goal: Patient will require stand by assist on entry steps with use of HR/AD prn while maintaining ordered precautions to allow for ability to enter/exit home safely . To be met by 04-28-24. PT COMPREHENSIVE No PT Ambulation Description: Special Events Manager Goal: Patient will ambulate with supervision x 100-200 feet with use of 4 wheel walker, over even surfaces with the following improved gait characteristics no LOB, improvement in walker safety in order to safely ambulate to vehicle for MD appt. To be met by 04-28-24. PT COMPREHENSIVE No PT Transfers Description: Residential Goal: Patient will perform sit<>stand transfers independently with use of a wheeled walker. To be met by 04-28-24. PT COMPREHENSIVE No PT HEP Description: Residential Goal: Patient and/or caregiver will with min assist with final HEP of strengthening, balance training, conditioning and core strengthening in order to continue making strength gains , improving balance and improving activity tolerance after discharge from home care. To be met by 04-28-24. PT COMPREHENSIVE No Physical Therapy General Description: After assessing the patient and discussing the patient's goals the following were identified: Patient centered assisted goal: to no longer have any falls. Target Date: by 04-28-24 (date) PHYSICAL THERAPY GENERAL (O) No Interventions Intervention Associated Problem/Goal Status Variance Visit Notes PT Balance Description: Provide balance training for safety and reduced fall risk. Problem:PT COMPREHENSIVE Goal:PT Balance Completed Balance training provided this date Static/dynamic standing for 3 min with/without bilateral upper extremity support on counter while preforming ADL's requiring reaching in midline and outside ALEYDA. Supervision provided with cues for balance stabilization and foot placement. Preformed feet together, and 1/2 tandem stance with eyes open with good stabilization. Standing balance with eyes closed for several episodes while providing cues for above balance stabilization techniques. Instruction provided to Patient. Response able to perform corrections with frequent verbal cues. PT Caregiver Assist/Safety Description: Instruct caregiver how to safely assist patient. Problem:PT COMPREHENSIVE Goal:PT Caregiver Assist/Safety Completed Caregiver training provided to patients daughter regarding: home exercise program, ambulation and stair negotiation Caregiver response to training: verbalize understanding and additional education required. Progress toward goal: ongoing PT Stairs and Home Exit Description: Instruct in proper safety and technique for stair training or home exit as directed in the goal. Problem:PT COMPREHENSIVE Goal:PT Stairs and Home Exit Completed Patient negotiated 3 front entry steps with use of 1 rail with contact guard assistance. Skilled instruction consisting of hand placement and verbal cues for sequencing for descending with left LE first. provided to Patient and Caregiver daughter. Tolerance to activity: good return demo of instruction. PT Ambulation Description: Provide gait training for increased safety and efficiency. Progress per patient tolerance and safety. Problem:PT COMPREHENSIVE Goal:PT Ambulation Completed Patient ambulated with stand by assistance 500 feet inside home and outside on side walk with use of 4 wheel walker over even surfaces and uneven surfaces with the following gait characteristics fast pace, forward rounded posture, decreased step length and height, decreased safety awareness with walker position when outside on side walk. Skilled instruction consisting of upright posture with closer walker proximity, cues for longer stride length with instruction in heal toe patterning, cues to keep walker in middle of side walk to prevent walker from dropping off edge provided to Patient and caregiver daughter. Tolerance to activity increased gait distance and able to return demonstrate proper technique with verbal reminders t/o episode. PT Transfers Description: Instruct in proper safety and transfer technique. Problem:PT COMPREHENSIVE Goal:PT Transfers Completed Instructed Patient on transfer training: sit to/from stand with use of: 4 w/walker. Patient required supervision for cues to lock walker brakes. Skilled instruction consisting of initial instruction in technique, weight shifting and hand placement. Tolerance to activity: good return demo of instruction of weight shift and hand placement. PT HEP Progression Description: Instruct on home exercise program. Progress as tolerated. Problem:PT COMPREHENSIVE Goal:PT HEP Completed Therapeutic exercise instruction this date in reclined supine/siting/standi ng HEP off of provided handouts. Pt was instructed in and performed 15 reps of LE exercises in reclined supine ankle pumps, quad sets, glute sets, heel slides, hip abd/add, SAQ. Siting: ankle pumps, single knee march, hip abd/add, and LAQ x 15 reps. Standing included heal/toe raises, straight leg hip extension, hip abduction, hamstring curls, single knee marching, and mini squats all x 10 reps. Verbal cues for proper breathing technique, engaging core musculature for support, and slower performance with 3 sec pause at end of range for optimal benefit of exercises - good return demo. She reports increase in pain in left hip and knee when performing standing exercises. LE HEP performed to promote improved B LE strength for carry-over into functional mobility. Recommended she perform LE HEP 2x daily for continued strengthening. Skills provided: ongoing instruction in technique, 10 - 15 reps 2 x daily. Patients daughter instructed in HEP and provided new handouts due to patient not being able to find handouts provided at last visit. Home Exercise Program issued provided at this visit Instruction provided to Patient. Therapy Depression (O) Description: Assess and monitor for signs and symptoms of depression. Problem:THERAPY DISEASE MANAGEMENT (O) Completed Patient shows signs of depression no Symptoms reported to physician no symptoms). Physical Therapy General (Order Only) Description: Admission Certification: 83 y.o. female admitted to [facility] for PT OT. Estimation of how long skilled services will be required [address] Orlando Cortez contacted and agrees with plan of care. Clinical findings: Pt saw her PCP on 04/03/24 and [facility] PT/OT were ordered. Pt reports that she had a fall last week and fractured her nose. Pt's daughter recently moved in with her from [place] due to some concerns with pt's memory - she was recently diagnosed with dementia with agitation. She has the following appts coming up : 04/11/24, 04/14/24, 04/18/24 - one appt will address her medications to see if something can be altered or changed to reduce her agitation. Upon arrival to pt's home, she was sitting in her recliner. She was very fidgety and appeared a bit annoyed with PT being present. She spoke frequently regarding her daughter moving in and how upset she is about it. Pt's daughter remained upstairs during visit as the pt did not want her to be involved. Pt reported that she is typically independent with gait using a quad cane or walker, her self care, med management, cleaning, and driving. She reported that she enjoys crocheting and doing other crafts. Pt states that she drives frequently and especially enjoys going to visit her sister. Pt appeared well nourished and well maintained. She repeated herself frequently during visit and appeared to really try and hide her memory deficits. She performed supine<>sit with independence and sit<>stand with supervision with verbal cues required for proper hand placement and to not park her walker and walk away from it. Pt ambulated indoors at an increased speed using a wheeled walker with SBA and impulsivity noted. She stood up several times during PT eval and forgot to use her walker. Her Tinetti balance score was 17/28 which indicates that she is a high fall risk. Pt was hesitant but agreeable for PT to return to address gait/balance deficits and safety deficits. PT spoke with pt's daughter following visit who reports that pt was not completely truthful during visit. Pt has not been getting out of bed most of the time. Her diet is limited and she has been drinking a lot of soda. Pt has not showered once since her daughter moved in 1 month ago. Pt rarely leaves the home and her license was revoked by her PCP last week. Pt was forgetting to take her medications and was sometimes realizing that and taking all of her medications at one time. OT to eval. SUPERVISOR TREATING [employer] PUMPING requested to assist with community resources. Recommended ST services but pt's daughter feels pt will not be accepting of this at all. PMH : osteopenia, insomnia, DJD, depression, anxiety, memory loss, neuropathy, lumbar spinal stenosis, eczema, retina surgery, R wrist fracture, B TKA, R SASHA. Physical Therapy Focus: gait, safety, balance, pt/caregiver training Occupational Therapy to evaluate and treat for: ADLs, IADLs, DME recommendations Speech Therapy to evaluate and treat for: not ordered Skilled Nurse to evaluate for: not ordered Social Work to evaluate for: order requested and received to provide community resources Obstetrics Technician to provide: not ordered Other contributing issues: Pt maintains on the main floor of her home. Clinician to instruct patient/ caregiver on signs and symptoms to report, emergency measures, safety measures, diet, and activity. Instruct on medication regime, and patient management. Perform physical assessment including vital signs and pain assessment. Perform pulse oximetry PRN for intermittent assessment and/ or respiratory distress. Other disciplines OT and SUPERVIS[employer]ING to evaluate and treat 1 week 1 effective week of 04/10/24. Homebound Criteria 1- Patient has illness/injury: fall, debility , and needs/has: help of another person to leave home due to weakness, assistive devices to leave home due to balance deficits, unsteady gait/frequent falls/poor balance and assistance necessary to ambulate/transfer due to decreased safety awareness Homebound Criteria 2- Inability to leave the home and leaving the home requires a taxing and considerable effort due to: leaving home exacerbates symptoms anxiety, confusion and fatigue Patient has the following structural impairments: Structures of the nervous system and Structures related to movement Patient has the following functional impairments: Mental functions, Sensory functions and pain and Neuromusculoskeletal and movement related functions The patient's activity limitation affects the following: Communication, Mobility and Self-care Telehealth contact via video or phone by any discipline as needed to assess/monitor condition related to current diagnoses, to assist with achieving identified goals. Problem:PHYSICAL THERAPY GENERAL (O) Goal:Physical Therapy General Completed documented in this encounter Care Teams Electrical Tech Relationship Specialty Start Date End Date Orlando Cortez MD [address] [place] [address] PCP - General Family Medicine 04/04/24 documented as of this encounter
--- OUTSIDE RECORDS SUMMARY | 2024-07-15 03:32 | XMS_ITS | Encounter Summary ---
Author Organization [employer] Care Team Providers Care Porcelain Enamel Installer Name Role Phone Orlando Cortez MD Primary Care Provider [phone] Encounter Details Date Type Department Care Team (Latest Contact Info) Description 04/13/2024 Travel Social History Tobacco Use Types Packs/Day [...] on filedocumented in this encounter Care Teams Porcelain Enamel Installer Relationship Specialty Start Date End Date Orlando Cortez MD [address] [place] [address] PCP - General Family Medicine 04/04/24 documented as of this encounter
--- OUTSIDE RECORDS SUMMARY | 2024-07-15 03:32 | XMS_ITS | Encounter Summary ---
Author Organization [facility] Address [address] [place] [address] Phone Care Team Providers Care Dough Catcher Name Role Phone Orlando Cortez MD Primary Care Provider [phone] Reason for Visit * Auth/Cert (Routine) Specialty Diagnoses / Procedures Referred By Mecca t Referred To Contact Referral ID Status Reason Start Date Expiration Date Visits Re quested Visits Authorized [id number] 1 1 Encounter Details Date Type Department Care Team (Late st Contact Info) Description 04/26/2024 9:30 AM CDT Home Care Visit [facility] [address] [place] [address] Kanika Orozco, HARRIET [place] OT - HOME VISIT Social History Tobacco Use [...] Reading Time Taken Comments Blood Pressure 130/82 04/26/2024 10:31 AM CDT Pulse 73 04/26/2024 10:31 AM CDT Temperature 36.5 ??C (97.7 ??F) 04/26/2024 10:31 AM C DT Respiratory Rate 18 04/26/2024 10:31 AM CDT Oxygen Saturation 95% 04/26/2024 10:31 AM CDT Inhaled Oxygen Concentration - - Weight - - Height - - Body Mass Index - - documented in this encounter Plan of Treatment Not on file documented as of this encounter Visit Diagnoses Not on filedocumented in this encounter Home Health Visit - Care Plan Visit Details Visit Type -OT - HOME VISIT Discipline -Occupational Therapy Problems Problem Description Start Date Status Goals Interve ntions ALL HH VITAL SIGN PARAMETERS Disciplines: All Home Care 04/07/2024 Active - 1 problem intervention scheduled/documen danyelle in this visit FALL PREVENTION (O) Disciplines: SN, PT, OT, DESKTOP OPERATOR, HCA, NATURAL GAS PLANT SUPERVISOR, RT 04/07/2024 Active 1 goal linked to scheduled/document ed intervention 1 goal intervention scheduled/documen danyelle in this visit THERAPY DISEASE MANAGEMENT (O) Disciplines: Therapies 04/07/2024 Active - 1 problem intervention scheduled/documen danyelle in this visit OCCUPATIONAL THERAPY EVALUATION ORDER (O) Disciplines: Occupational Therapy Occupational Therapy General Order 04/19/2024 Active 1 goal linked to scheduled/document ed intervention 1 goal intervention scheduled/documen danyelle in this visit OT COMPREHENSIVE Disciplines: Occupational Therapy 04/19/2024 Active 3 goals linked to scheduled/document ed interventions 3 goal interventions scheduled/documen danyelle in this visit Goals Goal Associated Problem Outcome Goal Met? Visit Notes Fall Prevention Description: Shared goal applicable to all disciplines with a visit frequency order. Patient/ Caregiver will verbalize understanding of identified fall risk based on MAHC-10 Fall Risk assessment and methods to prevent falls. Target date: within 30 days FALL PREVENTION (O) No Occupational Therapy Evaluation Description: After assessing the patient and discussing the patient's goals the following were identified. Patient Centered Custodial Goal: to try and get pt to do her own self care and educate pts family on pts care Target date: within 4 weeks OCCUPATIONAL THERAPY EVALUATION ORDER (O) No OT Toileting Description: Custodial Goal: Patient will perform/simulate dry run/complete toileting to include clothing management and hygiene at standing position with recommended DME/tech prn with independence and good understanding of safety/technique. To be met by 05/12/24 OT COMPREHENSIVE No OT Dressing Description: Custodial Goal: Patient will perform/simulate dry run/demonstrate prn complete total body dressing with recommended adap equip/tech/DME prn with setup and good understanding of safety/technique. To be met by 05/12/24. OT COMPREHENSIVE No OT Transfers Description: superintendent marine oil terminal goal: Patient will complete chair, toilet and functional transfers/mobilities for ADLs with adaptive equipment/tech prn with supervision decrease risk of to falls and increase functional independence. to be met by 05/12/24. Patient will complete tub/shower transfers with adaptive equipment/tech prn with SBA to decrease risk of falls and increase functional independence. to be met by 05/12/24. Patient will perform household mobilities with recommended DME prn with supervision in order to decrease risk of falls and increase functional independence. To be met by 05/12/24 OT COMPREHENSIVE No Interventions Intervention Associated Problem/Goal Status Variance Visit Notes All Vital Sign Parameters (Order Only) Description: Standard parameters to report to physician (unless patient specific parameters are ordered) - Applicable to all disciplines involved in patient's plan of care: Systolic blood pressure less than 90 Systolic blood pressure greater than 160 and/or diastolic blood pressure greater than 100 at rest unless due to uncontrolled pain or missed dose of antihypertensive medication. Blood Pressure greater than 140/90 for 3 consecutive readings occurring in at least two separate visits. Pulse greater than 110 at rest or less than 50 Respirations greater than 24 at rest or less than 10 Temperature greater than 101 degrees Fahrenheit New or increased edema Pulse ox less than 90% at rest on room air or while wearing prescribed oxygen, if ordered. Uncontrolled pain: chronic pain that changes in character or increases, pain that interferes with activity daily, or pain that is reported as unacceptable by the patient after use of prescribed pain control measures. Problem:ALL VITAL SIGN PARAMETERS Completed Fall (Order Only) Description: Shared intervention applicable to all disciplines with a visit frequency order.Patient meets criteria for Fall Program based on MAHC-10 score. Instruct patient/caregiver on fall prevention measures. Problem:FALL PREVENTION (O) Goal:Fall Prevention Completed Therapy Depression (O) Description: Assess and monitor for signs and symptoms of depression. Problem:THERAPY DISEASE MANAGEMENT (O) Completed Patient shows signs of depression no Symptoms reported to physician , no symptoms). OT Evaluation (Order Only) Description: Pt saw her PCP on 04/03/24 and [facility] PT/OT were ordered. Pt reported to this therapist that she fell and hurt her L leg. She reports she did not hurt anything else but in fact she fractured her nose. Pt's daughter recently moved in with her from [place] due to some concerns with pt's memory and she was recently diagnosed with dementia with agitation. Upon arrival to pt's home, she was sitting in her recliner and crocheting. During the interview portion the pt was agitated because her daughter was present and correcting some of pts answers. Pt reported that she is typically independent [...] really try and hide her memory deficits. During OT eval, pt stood to walk and tried to walk without the walker and encouraged to use walker and pt states why is just in the way but she did take walker with CGA. She stood up several times during OT eval and forgot to use her walker. Pt has not showered once since her daughter moved in 1 month ago. PMH : osteopenia, insomnia, DJD, depression, anxiety, memory loss, neuropathy, lumbar spinal stenosis, eczema, retina surgery, R wrist fracture, B TKA, R SASHA. Clinical findings: overall functional weakness, impaired functional endurance, decreased safety with and increased assistance with ADLs, decline in functional balance, decline in safety and performance of functional transfers/mobilities, B UE weakness, pain, decline in cognition/memory. Therapy Focus: ADLs, functional transfers/mobilities, therapeutic exercise, balanace activities, DME/adap equip, overall safety and education/training. Other contributing issues: Pts rehab potential may be limited due to multiple co-morbidities, prior level of function, environmental limitations, motivation, risk of falls, decline in memory/cognition, questionable compliance, pain, impulsive, poor appetite. Perform pulse oximetry PRN for intermittent assessment and/ or respiratory distress. Pt is aware and agreeable with goals and POC. Patient and MD are agreeable with plan of care. Problem:OCCUPATIONAL THERAPY EVALUATION ORDER (O) Goal:Occupational Therapy Evaluation Completed OT Toileting Description: Instruct on toileting techniques and safety. Assistive device as needed. Problem:OT COMPREHENSIVE Goal:OT Toileting Completed Patient performed toileting at sitting and standing position with grab bars supervision for clothing management. Education provided fall prevention. Response verbalize understanding and return demonstration. Pt completed toileting task with SUP this date for safety assessement when standing for clothing management. Pt displayed fair safety awareness and no fall risks with this portion of self care rouitine this date. OT Dressing Description: Instruct on dressing techniques and safety. ADL equipment as needed. Problem:OT COMPREHENSIVE Goal:OT Dressing Completed Patient performed dressing for total body with stand by assist and fair activity tolerance. Education provided fall prevention. Instruction provided to Patient and Caregiver. Response verbalize understanding and reinforcement needed for compliance. Pt completed total body dressing prior to shower of doffing pants, underwear, shirt and bra with v/c to complete while doffing of shirt and threading BLE out of pants while seated with fair verbal understanding of falls risks and poor follow through. Following shower task, Pt thread BLE into underwear and pants while seated and donned shirt while standing dispite v/c for safety to complete while seated. OT Transfers Description: Instruct on transfer techniques and safety. Equipment as needed. Problem:OT COMPREHENSIVE Goal:OT Transfers Completed Transfer 1 Patient performed toilet transfer with grab bar with supervision. Pt completed sit to stand transfer from EOB and functional mobility bedroom to bathroom with use of 4ww requiring no v/c to utilize AD. Pt leaves 4ww outside of bathroom secondary to limited space in room and narrow doorway. Pt completed sit <> stand transfer from toilet during toileting and dressing task with use of grab bar to stand 1/3 trials. Pt completed shower transfer including stepping over tub threshold and sit <> stand transfer from shower chair with SBA of recommendation to place tub rail at safe reach and closer to shower chair with fair understanding. Education provided fall prevention and adaptive equipment use. Response verbalize understanding, return demonstration, additional education required and reinforcement needed for compliance. documented in this encounter Care Teams Dough Catcher Relationship Specialty Start Date End Date Orlando Cortez MD [address] [place] [address] PCP - General Family Medicine 04/04/24 documented as of this encounter
--- OUTSIDE RECORDS SUMMARY | 2024-07-15 03:32 | XMS_ITS | Encounter Summary ---
Author Organization [facility] Address [address] [place] [address] Phone Care Team Providers Care Barrow Worker Name Role Phone Orlando Cortez MD Primary Care Provider [phone] Reason for Visit * Auth/Cert (Routine) Specialty Diagnoses / Procedures Referred By Mecca alfaro Referred To Contact Referral ID Status Reason Start Date Expiration Date Visits Re quested Visits Authorized [id number] 1 1 Encounter Details Date Type Department Care Team (Latest Contact Info) Description 04/25/2024 9:30 AM CDT Home Care Visit [facility] [address] [place] [address] Mari Farmer, Student IN PT - DISCIPLINE DISCHARGE Social History Tobacco Use Types Packs/Day Years Used Date Smoking Tobacco: Never Assessed Comments Unknown Sex and Gender Information Value Date Recorded Sex Assigned at Not on file Legal Sex Female 8:18 AM CDT Gender Identity Not on file Sexual Orientation Not on file documented as of this encounter Last Filed Vital Signs Vital Sign Reading Time Taken Comments Blood Pressure 140/88 04/25/2024 9:50 AM CDT Pulse 73 04/25/2024 9:50 AM CDT Temperature 36.5 ??C (97.7 ??F) 04/25/2024 9:50 AM CD T Respiratory Rate 16 04/25/2024 9:50 AM CDT Oxygen Saturation 93% 04/25/2024 9:50 AM CDT Inhaled Oxygen Concentration - - Weight - - Height - - Body Mass Index - - documented in this encounter Plan of Treatment Not on file documented as of this encounter Visit Diagnoses Not on filedocumented in this encounter Home Health Visit - Care Plan Visit Details Visit Type -PT - DISCIPLINE DISCHARGE Discipline -Physical Therapy Problems Problem Description Start Date Status Goals Interve ntions PT COMPREHENSIVE Disciplines: Physical Therapy 04/07/2024 Resolved on 04/25/2024 6 goals linked to scheduled/document ed interventions 3 goal interventions scheduled/document ed in this visit THERAPY DISEASE MANAGEMENT (O) Disciplines: Therapies 04/07/2024 Active - 1 problem intervention scheduled/document ed in this visit Goals Goal Associated Problem Outcome Goal Met? Visit Notes PT Balance Description: Mcfp Goal: Patient will show improved dynamic standing balance as demonstrated by improved Tinetti score from 1728 to 2028 in order to lower risk for falls and Improve functional mobility. To be met by 04-28-24. PT COMPREHENSIVE Therapy: Goal met Yes PT Caregiver Assist/Safety Description: retirement Goal: Caregiver will be able to safely demonstrate patient assistance with home exercise program, transfers, ambulation and stair negotiation in order to safely assist pt when PT staff is not present. To be met by 04-28-24. PT COMPREHENSIVE Therapy: Goal met Yes PT Stairs and Home Exit Description: Subway Operator Goal: Patient will require stand by assist on entry steps with use of HR/AD prn while maintaining ordered precautions to allow for ability to enter/exit home safely . To be met by 04-28-24. PT COMPREHENSIVE Therapy: Goal not met No PT Ambulation Description: Subway Operator Goal: Patient will ambulate with supervision x 100-200 feet with use of 4 wheel walker, over even surfaces with the following improved gait characteristics no LOB, improvement in walker safety in order to safely ambulate to vehicle for MD appt. To be met by 04-28-24. PT COMPREHENSIVE Therapy: Goal met Yes PT Transfers Description: Subway Operator Goal: Patient will perform sit<>stand transfers independently with use of a wheeled walker. To be met by 04-28-24. PT COMPREHENSIVE Therapy: Goal not met No PT HEP Description: Mcfp Goal: Patient and/or caregiver will with min assist with final HEP of strengthening, balance training, conditioning and core strengthening in order to continue making strength gains , improving balance and improving activity tolerance after discharge from home care. To be met by 04-28-24. PT COMPREHENSIVE Therapy: Goal met Yes Interventions Intervention Associated Problem/Goal Status Variance Visit Notes PT Ambulation Description: Provide gait training for increased safety and efficiency. Progress per patient tolerance and safety. Problem:PT COMPREHENSIVE Goal:PT Ambulation Completed Patient ambulated with supervision 50 feetx2 with use of 4 wheel walker over even surfaces with the following gait characteristics of forward flexed posture. Skilled instruction consisting of verbal cues provided to Patient and caregiver to improve use of AD, keeping walker close, slowing down, and being cautious while ambulating through narrow spaces. Pt continues to be very impulsive with activity so educated her and caregiver on contant supervision with cues to slow down and use AD. Tolerance to activity decreased assistance required. PT Transfers Description: Instruct in proper safety and transfer technique. Problem:PT COMPREHENSIVE Goal:PT Transfers Completed Instructed Caregiver and patient on transfer training: sit to/from stand with use of: 4ww walker. Patient required supervision. Skilled instruction consisting of placement of assistive device to keep walker nearby and use UE support on transfert surface. Pt and caregive instructed on 24 hr supervision for added safety. Pt perform sit <>supine, supine <> sit transfer into bed with supervision for added safety. Pt needed cuing to slow activity down. Tolerance to activity: cuing for increased safety awareness but very little carryover PT HEP Progression Description: Instruct on home exercise program. Progress as tolerated. Problem:PT COMPREHENSIVE Goal:PT HEP Completed Home Exercise Program issued to Patient and caregiver for continued LE strengthening to reduce overall fall risk. Returned demo on all exercises in sitting position. Response verbalize understanding. Therapy Depression (O) Description: Assess and monitor for signs and symptoms of depression. Problem:THERAPY DISEASE MANAGEMENT (O) Completed Patient shows signs of depression no documented in this encounter Home Health Visit - Actions and Narratives Actions I attest that this Physical Therapist, Susan Quinn PT (Clinical Instructor), was present during the entire visit on this date 04-25-24 (date) directly supervising Physical Therapist student, PAL Hou (student name). I have reviewed and agree with documentation present in this note. Narratives Spoke with patients horacio Hernandez today about 24 hour supervision for safety with all activity. Recommended continued verbal cuing to have patient slow down activity and keep walker nearby with transfers. Verbalized understanding. documented in this encounter Care Teams Barrow Worker Relationship Specialty Start Date End Date Orlando Cortez MD [address] [place] [id number] PCP - General Family Medicine 04/04/24 documented as of this encounter
--- OUTSIDE RECORDS SUMMARY | 2024-07-15 03:32 | XMS_ITS | Clinical Summary ---
Author Organization [facility] Address [address] [place] [address] Phone Care Team Providers Care Shock Absorption Floor Layer Name Role Phone Orlando Cortez MD Primary Care Provider [phone] Allergies No known active allergies Medications traMADol (ULTRAM) 50 MG Tablet Take 50 mg by mouth every 6 hours as needed for Mild or more severe pain. Active acetaminophen (Tylenol) 325 MG Tablet Take 325 mg by mouth every 4 hours as needed for Mild or more severe pain. Active atorvastatin (LIPITOR) 40 MG Tablet Take 40 mg by mouth daily. Active raloxifene (EVISTA) 60 MG Tablet Take 60 mg by mouth daily. Active DULoxetine (CYMBALTA) [address] Particles Take 60 mg by mouth daily. Active gabapentin (NEURONTIN) 300 MG Capsule Take 300 mg by mouth 2 times daily. Active donepezil (ARICEPT) 10 MG Tablet Take 10 mg by mouth nightly. Active memantine (Namenda) 10 MG Tablet Take 10 mg by mouth 2 times daily. Active Vitamin D3 1000 UNIT Tablet Take 1,000 Units by mouth daily. Active aspirin EC 81 MG Tablet Delayed Response Take 81 mg by mouth daily. Active Fish Oil-Cholecalcif jeanie (Fish Oil + D3) 2087-2466 MG-UNIT Capsule Take 1 Capsule by mouth daily. Active Melatonin 5 MG Tablet Take 5 mg by mouth daily. Active Multivitamin-Mi nerals (Centrum Silver 50+Women) Tablet Take 1 Tablet by mouth daily. Active Bioflavonoid Products (Bioflex) Tablet Take 2 Tablets by mouth 2 times daily. Active Encounters Date Type Department Care Team Description 05/18/2024 Home Care Visit [address] [address] Pamela Clay, OT OT - DISCHARGE SUMMARY 05/16/2024 12:45 PM CERTIFIED ETHICAL HACKER Home Care Visit [address] [address] Lorraine Gutiérrez, BRICK UNLOADER TENDER-SPEECH LANGUAGE PATHOLOGIST BRICK UNLOADER TENDER - OASIS DISCHARGE 05/16/2024 Travel 05/12/2024 1:00 PM CDT Home Care Visit [address] [address] Kanika Orozco, HARRIET OT - DISCIPLINE DISCHARGE 05/12/2024 Home Care Visit [address] [address] Kanika Orozco, HARRIET CASE COMMUNICATION 05/04/2024 11:30 AM CDT Home Care Visit [address] [address] Lorraine Gutiérrez, BRICK UNLOADER TENDER-SPEECH LANGUAGE PATHOLOGIST BRICK UNLOADER TENDER - INITIAL EVALUATION 04/28/2024 11:30 AM CDT Home Care Visit [address] [address] Kanika Orozco OTA OT - HOME VISIT 04/26/2024 9:30 AM CDT Home Care Visit [address] [address] Kanika Orozco HARRIET OT - HOME VISIT 04/26/2024 Home Care Visit [address] [address] Lorraine Gutiérrez, BRICK UNLOADER TENDER-SPEECH LANGUAGE PATHOLOGIST CASE COMMUNICATION 04/25/2024 9:30 AM CDT Home Care Visit [address] [address] Mari Farmer, Student PT - DISCIPLINE DISCHARGE 04/19/2024 1:30 PM CDT Home Care Visit [address] [address] Jennifer Pascual, HEALTH CARE LAW SPECIALIST PT - HOME VISIT 04/19/2024 11:15 AM CDT Home Care Visit [address] [address] Pamela Clay, OT OT - INITIAL EVALUATION 04/19/2024 Travel 04/17/2024 9:30 AM CDT Home Care Visit [address] [address] Becky Quinn, PT PT - HEALTH CARE LAW SPECIALIST SUPERVISORY VISIT 04/14/2024 Home Care Visit [address] [address] Becky Quinn, PT CARE CONFERENCE from Last 3 Months Social History Tobacco Use Types Packs/Day Years Used Date Smoking Tobacco: Never Assessed Comments Unknown Sex and Gender Information Value Date Recorded Sex Assigned at Not on file Legal Sex Female 8:18 AM CDT Gender Identity Not on file Sexual Orientation Not on file Last Filed Vital Signs Vital Sign Reading Time Taken Comments Blood Pressure 118/68 05/16/2024 1:20 PM CERTIFIED ETHICAL HACKER Pulse 73 05/16/2024 1:20 PM CERTIFIED ETHICAL HACKER Temperature 36.6 ??C (97.8 ??F) 05/16/2024 1:20 PM CS T Respiratory Rate 18 05/16/2024 1:20 PM CERTIFIED ETHICAL HACKER Oxygen Saturation 95% 05/16/2024 1:20 PM CERTIFIED ETHICAL HACKER Inhaled Oxygen Concentration - - Weight 83.9 kg (185 lb) 04/07/2024 9:59 AM CDT Height 180.3 cm (5' 11) 04/07/2024 9:59 AM CDT Body Mass Index 25.8 04/07/2024 9:59 AM CDT Plan of Treatment Health Maintenance Due Date Last Done Comments Hepatitis C Virus (HCV) Screening 1940 Respiratory Syncytial Virus (RSV) Immunization (Adult) (1 - 1-dose 75+ series) 2017 Pneumococcal Immunization (50+ years) (2 of 2 - PCV) 04/01/2019 04/01/2018 DEXA Bone Density 04/06/2026 04/06/2024, 10/01/2021 Zoster Immunization Completed 01/19/2023, Influenza Immunization Completed 4, 03/23/2023, 03/20/2022, Additional history exists SARS-COV-2 Immunization Completed 04/06/20 24, 05/29/2022, 11/21/2021, Additional history exists TdaP Immunization Completed 04/06/2024 Hepatitis B Immunization Aged Out No longer eligible based on patient's age to complete this topic Meningococcal Immunization (ACWY) Aged Out No longer eligible based on patient's age to complete this topic Rotavirus Immunization Aged Out No lo nger eligible based on patient's age to complete this topic Insurance MEDICARE C [employer] Advance Directives * Full Code (Latest Code Status on File) Date Activated Date Inactivated Comments 04/08/2024 9:13 PM Care Teams Shock Absorption Floor Layer Relationship Specialty Start Date End Date Orlando Cortez MD [address] [place] [address] PCP - General Family Medicine 04/04/24
--- OUTSIDE RECORDS SUMMARY | 2024-07-15 03:32 | XMS_ITS | Encounter Summary ---
Author Organization [facility] Address [address] [place] [address] Phone Care Team Providers Care Bus Greaser Name Role Phone Orlando Cortez MD Primary Care Provider [phone] Reason for Visit * Auth/Cert (Routine) Specialty Diagnoses / Procedures Referred By Mecca alfaro Referred To Contact Referral ID Status Reason Start Date Expiration Date Visits Re quested Visits Authorized [id number] 1 1 Encounter Details Date Type Department Care Team (Late st Contact Info) Description 04/19/2024 1:30 PM CDT Home Care Visit [facility] [address] [place] [address] Jennifer Pascual, [facility] PT - HOME VISIT Social History Tobacco [...] Sign Reading Time Taken Comments Blood Pressure 122/72 04/19/2024 2:17 PM CDT Pulse 68 04/19/2024 2:17 PM CDT Temperature 36.4 ??C (97.5 ??F) 04/19/2024 2:17 PM CD T Respiratory Rate 18 04/19/2024 2:17 PM CDT Oxygen Saturation 96% 04/19/2024 2:17 PM CDT Inhaled Oxygen Concentration - - [...] 1 goal linked to scheduled/document ed intervention 2 goal interventions scheduled/documen danyelle in this visit Goals Goal Associated Problem Outcome Goal Met? Visit Notes PT Balance Description: Jail Goal: Patient will show improved dynamic standing balance as demonstrated by improved Tinetti score from 1728 to 2028 in order to lower risk for falls and Improve functional mobility. To be met by 04-28-24. PT COMPREHENSIVE No PT Caregiver Assist/Safety Description: custodial Goal: Caregiver will be able to safely demonstrate patient assistance with home exercise program, transfers, ambulation and stair negotiation in order to safely assist pt when PT staff is not present. To be met by 04-28-24. PT COMPREHENSIVE No PT Stairs and Home Exit Description: Jail Goal: Patient will require stand by assist on entry steps with use of HR/AD prn while maintaining ordered precautions to allow for ability to enter/exit home safely . To be met by 04-28-24. PT COMPREHENSIVE No PT Ambulation Description: Church Administrator Goal: Patient will ambulate with supervision x 100-200 feet with use of 4 wheel walker, over even surfaces with the following improved gait characteristics no LOB, improvement in walker safety in order to safely ambulate to vehicle for MD appt. To be met by 04-28-24. PT COMPREHENSIVE No PT Transfers Description: Jail Goal: Patient will perform sit<>stand transfers independently with use of a wheeled walker. To be met by 04-28-24. PT COMPREHENSIVE No PT HEP Description: Jail Goal: Patient and/or caregiver will with min [...] goals the following were identified: Patient centered alf goal: to no longer have any falls. Target Date: by 04-28-24 (date) PHYSICAL THERAPY GENERAL (O) No Interventions Intervention Associated Problem/Goal Status Variance Visit Notes PT Balance Description: Provide balance training for safety and reduced fall risk. Problem:PT COMPREHENSIVE Goal:PT Balance Completed Balance training provided this date Dynamic standing including picking up cones from floor and reaching for cones outside ALEYDA over a 30 ft path with 4 w/w, demonstrating no LOB and fair safety technique. Instructed patient in balance stabilization techniques of upright posture and weight shift preformed and hips including anterior/posterio r weight shift, lateral weight shift, and clockwise/counter clock escobedo hip rotations all performed with eyes open and eye closed with intermittent UE on sink with eyes closed. Preformed blue foam balance pad activities including including feet together, and 1/2 tandem stance with eyes open and eyes closed for several episodes while providing cues for above balance stabilization techniques. She was instructed in side stepping, heal raised walking, toe raised walking and backward walking all over a 10 ft path with intermittent UE support on counter for balance stabilization. Patient also preformed 4 point box stepping to left and right and forward lunge both LE with need for minimal stabilization upon return stance 40% without UE support. Special Test performed this date Not applicable. Skill provided Verbal and Tactile cues consisting of and Safety instructions to tighten core for improved stability Instruction provided to Patient. Response verbalize understanding and return demonstration. PT Caregiver Assist/Safety Description: Instruct caregiver how to safely assist patient. Problem:PT COMPREHENSIVE Goal:PT Caregiver Assist/Safety Not addressed at this visit PT Stairs and Home Exit Description: Instruct in proper safety and technique for stair training or home exit as directed in the goal. Problem:PT COMPREHENSIVE Goal:PT Stairs and Home Exit Not addressed at this visit PT Ambulation Description: Provide gait training for increased safety and efficiency. Progress per patient tolerance and safety. Problem:PT COMPREHENSIVE Goal:PT Ambulation Completed Patient ambulated with supervision for 4 min inside home with 4 wheel walker over even surfaces. Patient performed a fast pace with forward rounded posture and decreased step length/height. She continues to have decreased safety awareness with walker position with negotiation around objects. Patient got up and left walker 2 x during visit and required cues to keep it with her. Skilled instruction consisting of upright posture cues and for longer stride length. Instruction in heal toe patterning with cues to keep walker closer to body. Tolerance to activity Patient was able to provided return demonstrate proper technique with verbal reminders [...] Therapeutic exercise instruction this date in reclined supine/siting/sta nding HEP off of provided handouts. Pt was [...] LE HEP 2x daily for continued strengthening. Patient reported she has lost HEP hand outs. Provided patient with new set of HEP in sit, stand and supine exercises. Skills provided: ongoing instruction in technique, 10 -15 reps 2 x daily. Patients daughter instructed [...] no Symptoms reported to physician no symptoms). Notice Of Discharge Description: Complete Notice of Discharge documentation three days prior to agency discharge Problem:PHYSICAL THERAPY GENERAL (O) Goal:Physical Therapy General Completed Notice of discharge signed by Patient. Agrees with plan for discharge on 04/25/24 date. Supervising PT is aware of D/C and agrees with discharge plan. Physical Therapy General (Order Only) Description: Admission Certification: 83 y.o. female admitted to [facility] Home Care Services for PT OT. Estimation of how long skilled services will be required [address] Orlando Cortez contacted and agrees with plan of care. Clinical findings: Pt saw her PCP on 04/03/24 and [facility] PT/OT were ordered. Pt reports that she had a fall last week and fractured her nose. Pt's daughter recently moved in with her from [place] due to some concerns with pt's memory [...] her medications at one time. OT to tr. MILLER SUPERVISOR requested to assist with community resources. Recommended [...] requested and received to provide community resources Nutritional Health Coach to provide: not ordered Other contributing issues: [...] or respiratory distress. Other disciplines OT and MILLER SUPERVISOR to evaluate and treat 1 week 1 [...] Completed documented in this encounter Care Teams Bus Greaser Relationship Specialty Start Date End Date Orlando Cortez MD [address] [place] [address] PCP - General Family Medicine 04/04/24 documented as of this encounter
--- OUTSIDE RECORDS SUMMARY | 2024-07-15 03:32 | XMS_ITS | Encounter Summary ---
Author Organization [facility] Address [address] [place] [address] Phone Care Team Providers Care Latin Dance Instructor Name Role Phone Orlando Cortez MD Primary Care Provider [phone] Reason for Visit * Auth/Cert (Routine) Specialty Diagnoses / Procedures Referred By Mecca alfaro Referred To Contact Referral ID Status Reason Start Date Expiration Date Visits Re quested Visits Authorized [id number] 1 1 Encounter Details Date Type Department Care Team (Late st Contact Info) Description 04/10/2024 9:30 AM CDT Home Care Visit [facility] [address] [place] [address] Jennifer Pascual, [facility] PT - HOME VISIT Social History [...] Sign Reading Time Taken Comments Blood Pressure 124/78 04/10/2024 9:46 AM CDT Pulse 68 04/10/2024 9:46 AM CDT Temperature 36.4 ??C (97.5 ??F) 04/10/2024 9:46 AM CD T Respiratory Rate 18 04/10/2024 9:46 AM CDT Oxygen Saturation 95% 04/10/2024 9:46 AM CDT Inhaled Oxygen Concentration - - [...] scheduled/document ed interventions 6 goal interventions scheduled/documen adnyelle in this visit THERAPY DISEASE MANAGEMENT (O) Disciplines: Therapies 04/07/2024 Active - 1 problem intervention scheduled/documen danyelle in this visit PHYSICAL THERAPY GENERAL (O) Disciplines: Physical Therapy Physical Therapy General Order 04/07/2024 Active 1 goal linked to scheduled/document ed intervention 1 goal intervention scheduled/documen danyelle in this visit Goals Goal Associated Problem Outcome Goal Met? Visit Notes PT Balance Description: Nursing Home Goal: Patient will show improved dynamic standing balance as demonstrated by improved Tinetti score from 1728 to 2028 in order to lower risk for falls and Improve functional mobility. To be met by 04-28-24. PT COMPREHENSIVE No PT Caregiver Assist/Safety Description: intermediate Goal: Caregiver will be able to safely demonstrate patient assistance with home exercise program, transfers, ambulation and stair negotiation in order to safely assist pt when PT staff is not present. To be met by 04-28-24. PT COMPREHENSIVE No PT Stairs and Home Exit Description: Nursing Home Goal: Patient will require stand by assist on entry steps with use of HR/AD prn while maintaining ordered precautions to allow for ability to enter/exit home safely . To be met by 04-28-24. PT COMPREHENSIVE No PT Ambulation Description: Green Promotions Specialist Goal: Patient will ambulate with supervision x 100-200 feet with use of 4 wheel walker, over even surfaces with the following improved gait characteristics no LOB, improvement in walker safety in order to safely ambulate to vehicle for MD appt. To be met by 04-28-24. PT COMPREHENSIVE No PT Transfers Description: Nursing Home Goal: Patient will perform sit<>stand transfers independently with use of a wheeled walker. To be met by 04-28-24. PT COMPREHENSIVE No PT HEP Description: Nursing Home Goal: Patient and/or caregiver will with min [...] goals the following were identified: Patient centered fdc goal: to no longer have any falls. [...] stabilization techniques. Instruction provided to Patient. Response verbalize understanding. PT Caregiver Assist/Safety Description: Instruct caregiver how to safely assist patient. Problem:PT COMPREHENSIVE Goal:PT Caregiver Assist/Safety Caregiver unavailable PT Stairs and Home Exit Description: Instruct in proper safety and technique for stair training or home exit as directed in the goal. Problem:PT COMPREHENSIVE Goal:PT Stairs and Home Exit Not addressed at this visit PT Ambulation Description: Provide gait training for increased safety and efficiency. Progress per patient tolerance and safety. Problem:PT COMPREHENSIVE Goal:PT Ambulation Completed Patient ambulated with contact guard assistance 100 feet with out AD with forward flexed posture mild lateral sway, decreased step height and length B LE. Patient also ambulated with Rolator walker after preforming Exercises due to increased pain with single leg stand, with the following gait characteristics slow pace, decreased single leg stance time, improved step length and step height. Skilled instruction consisting of utilize Rolator with cues for upright posture, increased step length and height and closer walker proximity to improve safety, provided to Patient. Tolerance to activity increased gait distance, decreased assistance required, able to return demonstrate proper technique with verbal cues required 80 % of activity. PT Transfers Description: Instruct in proper safety and transfer technique. Problem:PT COMPREHENSIVE Goal:PT Transfers Completed Instructed Patient on transfer training: sit to/from stand with use of: No AD/walker. Patient required stand by assistance. Skilled instruction consisting of initial instruction in technique, weight shifting and hand placement. Tolerance to activity: good return demo of instruction of weight shift and hand placement. PT HEP Progression Description: Instruct on home exercise program. Progress as tolerated. Problem:PT COMPREHENSIVE Goal:PT HEP Completed Therapeutic exercise instruction this date in supine/standing HEP off of provided handouts with 80% performance cues for full ROM, slower pace, correction of movement faults, and engaging core stability by tightening tummy muscles t/o activity. Pt was instructed in and performed 10 reps of LE exercises in supine (AROM) : ankle pumps, quad sets, glute sets, heel slides, hip abd/add, SAQ. Standing (AROM) included heal/toe raises, straight leg hip extension, hip abduction, hamstring curls, single knee marching, and mini squats all x 10 reps. Verbal cues for proper breathing technique, engaging core musculature for support, and slower performance with 3 sec pause at end of range for optimal benefit of exercises - good return demo. She reports increase in pain right hip and knee pain when performing standing exercises. LE HEP performed to promote improved B LE strength for carry-over into functional mobility. Recommended he perform his LE HEP 2x daily for continued strengthening. Skills provided: ongoing instruction in technique, 10 - 15 reps 2 x daily. Home Exercise Program issued provided at this visit Instruction provided to Patient. Therapy Depression (O) Description: Assess and monitor for signs and symptoms of depression. Problem:THERAPY DISEASE MANAGEMENT (O) Completed Patient shows signs of depression no Symptoms reported to physician no symptoms). Physical Therapy General (Order Only) Description: Admission Certification: 83 y.o. female admitted to [facility] Home Care Services for PT OT. Estimation of how long skilled services will be required [address] Orlando Cortez contacted and agrees with plan of care. Clinical findings: Pt saw her PCP on 04/03/24 and [facility] PT/OT were ordered. Pt reports that she had a fall last week and fractured her nose. Pt's daughter recently moved in with her from [place] due to some concerns with pt's memory [...] medications at one time. OT to eval. ORDER CLERK requested to assist with community resources. Recommended [...] requested and received to provide community resources Auto Heater Mechanic to provide: not ordered Other contributing issues: [...] or respiratory distress. Other disciplines OT and ORDER CLERK to evaluate and treat 1 week 1 [...] Completed documented in this encounter Care Teams Latin Dance Instructor Relationship Specialty Start Date End Date Orlando Cortez MD [address] [place] [address] PCP - General Family Medicine 04/04/24 documented as of this encounter
--- OUTSIDE RECORDS SUMMARY | 2024-07-15 03:32 | XMS_ITS | Encounter Summary ---
Author Organization [facility] Address [address] [place] [address] Phone Care Team Providers Care Hatch Tender Name Role Phone Orlando Cortez MD Primary Care Provider [phone] Encounter Details Date Type Department Care Team (Late st Contact Info) Description 04/07/2024 Telephone [facility] [address] [place] [address] Pamela Moran RN [place] Social History Tobacco Use Types Packs/Day Years Used Date Smoking Tobacco: Never Assessed Comments Unknown Sex and Gender Information Value Date Recorded Sex Assigned at Not on file Legal Sex Female 8:18 AM CDT Gender Identity Not on file Sexual Orientation Not on file documented as of this encounter Miscellaneous Notes * Telephone Encounter - Pamela Moran RN - 04/13/2024 1:03 PM CDT Call placed to Dr. Cortez's office. Spoke with nurse Lona who reports MD is aware of potential drug interactions and has no new ordersat this time. * Telephone Encounter - Pamela Moran RN - 04/10/2024 1:14 PM CDT Call placed to Dr. Cortez's office to follow up on medication reconciliation questions regarding potential drug interactions. This nurse spoke with nurse Bryan who states that MD has not yet reviewed this. States that she will discuss with MD and call back. Awaiting response. * Telephone Encounter - Pamela Moran RN - 04/07/2024 11:57 AM CDT Call placed to Dr. Cortez's office to request answer to questions regarding medication reconciliation as follows: Please review the following potential major [id number] interactions: Drug- Drug: traMADol and DULoxetine Duloxetine may enhance the adverse/toxic effect of tramadol. The risk for serotonin syndrome/serotonin toxicity and seizures may be increased with this combination. Duloxetine may diminish the therapeutic effect of tramadol. Awaiting response documented in this encounter Plan of Treatment Not on file documented as of this encounter Visit Diagnoses Not on filedocumented in this encounter Care Teams Hatch Tender Relationship Specialty Start Date End Date Orlando Cortez MD [address] [place] [id number] PCP - General Family Medicine 04/04/24 documented as of this encounter
--- OUTSIDE RECORDS SUMMARY | 2024-07-15 03:32 | XMS_ITS | Encounter Summary ---
Author Organization [facility] Address [address] [place] [address] Phone Care Team Providers Care Siebel Administrator Name Role Phone Orlando Cortez MD Primary Care Provider [phone] Reason for Visit * Auth/Cert (Routine) Specialty Diagnoses / Procedures Referred By Contac t Referred To Contact Referral ID Status Reason Start Date Expiration Date Visits Re quested Visits Authorized [id number] 1 1 Encounter Details Date Type Department Care Team (Late st Contact Info) Description 04/14/2024 [facility] [address] [place] [address] Becky Quinn, PT CARE CONFERENCE Social History Tobacco Use Types Packs/Day Years [...] on filedocumented in this encounter Care Teams Siebel Administrator Relationship Specialty Start Date End Date Orlando Cortez MD [address] [place] [address] PCP - General Family Medicine 04/04/24 documented as of this encounter
--- OUTSIDE RECORDS SUMMARY | 2024-07-15 03:32 | XMS_ITS | Encounter Summary ---
Author Organization [facility] Address [address] [place] [address] Phone Care Team Providers Care Medical Voucher Clerk Name Role Phone Orlando Cortez MD Primary Care Provider [phone] Reason for Visit * Auth/Cert (Routine) Specialty Diagnoses / Procedures Referred By Mecca alfaro Referred To Contact Referral ID Status Reason Start Date Expiration Date Visits Re quested Visits Authorized [id number] 1 1 Encounter Details Date Type Department Care Team (Late st Contact Info) Description 05/16/2024 12:45 PM [facility]ID[facility] [address] [place] [address] Lorraine Gutiérrez, LEAD REFINER-SPEECH LANGUAGE PATHOLOGIST [place] LEAD REFINER - OASIS DISCHARGE Social History Tobacco Use Types Packs/Day [...] Comments Blood Pressure 118/68 05/16/2024 1:20 PM RODEO RIDER Pulse 73 05/16/2024 1:20 PM RODEO RIDER Temperature 36.6 ??C (97.8 ??F) 05/16/2024 1:20 PM CS T Respiratory Rate 18 05/16/2024 1:20 PM RODEO RIDER Oxygen Saturation 95% 05/16/2024 1:20 PM RODEO RIDER Inhaled Oxygen Concentration - - Weight - - Height - - Body Mass Index - - documented in this encounter Plan of Treatment Not on file documented as of this encounter Visit Diagnoses Not on filedocumented in this encounter Home Health Visit - Care Plan Visit Details Visit Type -LEAD REFINER - OAYO LUNA Discipline -Speech Language Pathology Problems Problem Description Start Date Status Goals Interve ntions THERAPY DISEASE MANAGEMENT (O) Disciplines: Therapies 04/07/2024 Active - 1 problem intervention scheduled/documented in this visit Interventions Intervention Associated Problem/Goal Status Variance Visit Notes Therapy Depression (O) Description: Assess and monitor for signs and symptoms of depression. Problem:THERAPY DISEASE MANAGEMENT (O) Scheduled documented in this encounter Care Teams Medical Voucher Clerk Relationship Specialty Start Date End Date Orlando Cortez MD [address] [place] [id number] PCP - General Family Medicine 04/04/24 documented as of this encounter
--- OUTSIDE RECORDS SUMMARY | 2024-07-15 03:32 | XMS_ITS | Encounter Summary ---
Author Organization [facility] Address [address] [place] [address] Phone Care Team Providers Care Mail Handler Assistant Name Role Phone Orlando Cortez MD Primary Care Provider [phone] Reason for Visit * Auth/Cert (Routine) Specialty Diagnoses / Procedures Referred By Mecca t Referred To Contact Referral ID Status Reason Start Date Expiration Date Visits Re quested Visits Authorized [id number] 1 1 Encounter Details Date Type Department Care Team (Late st Contact Info) Description 04/13/2024 [facility] [address] [place] [address] Jenn Cohn, OT TELEPHONE ENCOUNTER Social History Tobacco Use Types Packs/Day Years [...] Health Visit - Actions and Narratives Actions OT attempted to schedule magdalene luation. Pt. was not available when appointment was open and is not available tomorrow until the afternoon. Unless there is a cancellation, OT may have to wait til next week for evaluation. documented in this encounter Care Teams Mail Handler Assistant Relationship Specialty Start Date End Date Orlando Cortez MD [address] [place] [address] PCP - General Family Medicine 04/04/24 documented as of this encounter
--- OUTSIDE RECORDS SUMMARY | 2024-07-15 03:32 | XMS_ITS | Encounter Summary ---
Author Organization [facility] Address [address] [place] [address] Phone Care Team Providers Care Eye Technician Name Role Phone Orlando Cortez MD Primary Care Provider [phone] Reason for Visit * Auth/Cert (Routine) Specialty Diagnoses / Procedures Referred By Mecca t Referred To Contact Referral ID Status Reason Start Date Expiration Date Visits Re quested Visits Authorized [id number] 1 1 Encounter Details Date Type Department Care Team (Late st Contact Info) Description [facility] [address] [place] [address] Lorraine Gutiérrez, STAMP PRESSER-SPEECH LANGUAGE PATHOLOGIST [place] CASE COMMUNICATION Social History Tobacco Use Types Packs/Day Years [...] on filedocumented in this encounter Care Teams Eye Technician Relationship Specialty Start Date End Date Orlando Cortez MD [address] [place] [address] PCP - General Family Medicine 04/04/24 documented as of this encounter
--- OUTSIDE RECORDS SUMMARY | 2024-07-15 03:32 | XMS_ITS | Encounter Summary ---
Author Organization [facility] Address [address] [place] [address] Phone Care Team Providers Care Slurry Man Name Role Phone Orlando Cortez MD Primary Care Provider [phone] Reason for Visit * Auth/Cert (Routine) Specialty Diagnoses / Procedures Referred By Mecca t Referred To Contact Referral ID Status Reason Start Date Expiration Date Visits Re quested Visits Authorized [id number] 1 1 Encounter Details Date Type Department Care Team (Late st Contact Info) Description 04/19/2024 11:15 AM CDT Home Care Visit [facility] [address] [place] [address] Pamela Clay, OT OT - INITIAL EVALUATION Social History Tobacco Use Types Packs/Day Years Used Date Smoking Tobacco: Never Assessed Comments Unknown Sex and Gender Information Value Date Recorded Sex Assigned at Not on file Legal Sex Female 8:18 AM CDT Gender Identity Not on file Sexual Orientation Not on file documented as of this encounter Last Filed Vital Signs Vital Sign Reading Time Taken Comments Blood Pressure 130/80 04/19/2024 12:10 PM CDT Pulse 73 04/19/2024 12:10 PM CDT Temperature 36.4 ??C (97.6 ??F) 04/19/2024 12:10 PM C DT Respiratory Rate 18 04/19/2024 12:10 PM CDT Oxygen Saturation 94% 04/19/2024 12:10 PM CDT Inhaled Oxygen Concentration - - Weight - - Height - - Body Mass Index - - documented in this encounter Plan of Treatment Not on file documented as of this encounter Visit Diagnoses Not on filedocumented in this encounter Home Health Visit - Care Plan Visit Details Visit Type -OT - INITIAL KEITH LUATION Discipline -Occupational Therapy Problems Problem Description Start Date Status Goals Interve ntions ALL HH VITAL SIGN PARAMETERS Disciplines: All Home Care 04/07/2024 Active - 1 problem intervention scheduled/document ed in this visit FALL PREVENTION (O) Disciplines: SN, PT, OT, CAR MECHANIC, HCA, WELT SLASHER, RT 04/07/2024 Active 1 goal linked to scheduled/documen danyelle intervention 1 goal intervention scheduled/document ed in this visit SAFETY/PREVENTI ON EDUCATION Disciplines: Skilled Clinicians High Risk Medication Safety-Oxygen 04/07/2024 Active - 1 problem intervention scheduled/document ed in this visit THERAPY DISEASE MANAGEMENT (O) Disciplines: Therapies 04/07/2024 Active - 1 problem intervention scheduled/document ed in this visit OCCUPATIONAL THERAPY EVALUATION ORDER (O) Disciplines: Occupational Therapy Occupational Therapy General Order 04/19/2024 Active 1 goal linked to scheduled/documen danyelle intervention 1 goal intervention scheduled/document ed in this visit Goals [...] goals the following were identified. Patient Centered Commercial Carpet Installer Goal: to try and get pt to do her own self care and educate pts family on pts care Target date: within 4 weeks OCCUPATIONAL THERAPY EVALUATION ORDER (O) No Interventions Intervention Associated Problem/Goal Status [...] measures. Problem:FALL PREVENTION (O) Goal:Fall Prevention Completed Pressure Injury Prevention (Order Only) Description: Instruct on pressure injury prevention techniques and safety. Provide/apply moisture barrier to protect from incontinence as needed based on pressure injury risk assessment. Problem:SAFETY/PREVEN TION EDUCATION Completed Therapy Depression (O) Description: Assess and monitor for signs and symptoms of depression. Problem:THERAPY DISEASE MANAGEMENT (O) Completed Patient shows signs of depression no OT Evaluation (Order Only) Description: Pt saw her PCP on 04/03/24 and [facility] PT/OT were ordered. Pt reported to this [...] EVALUATION ORDER (O) Goal:Occupational Therapy Evaluation Completed documented in this encounter Home Health Visit - Actions and Narratives Narratives Pt saw her PCP on 04/03/24 an [facility] PT/OT were ordered. Pt reported to this [...] R wrist fracture, B TKA, R SASHA. documented in this encounter Care Teams Slurry Man Relationship Specialty Start Date End Date Orlando Cortez MD [address] [place] [id number] PCP - General Family Medicine 04/04/24 documented as of this encounter
--- OUTSIDE RECORDS SUMMARY | 2024-07-15 03:32 | XMS_ITS | Encounter Summary ---
Author Organization [facility] Address [address] [place] [address] Phone Care Team Providers Care Lease Administration Supervisor Name Role Phone Orlando Cortez MD Primary Care Provider [phone] Reason for Visit * Auth/Cert (Routine) Specialty Diagnoses / Procedures Referred By Mecca alfaro Referred To Contact Referral ID Status Reason Start Date Expiration Date Visits Re quested Visits Authorized [id number] 1 1 Encounter Details Date Type Department Care Team (Late st Contact Info) Description 05/18/2024 [facility] [address] [place] [address] Pamela Clay, OT OT - DISCHARGE SUMMARY Social History Tobacco Use Types Packs/Day Years [...] Plan Visit Details Visit Type -OT - Discharge Catrina handley Discipline -Occupational Therapy Problems Problem Description Start Date Status Goals Interve ntions THERAPY DISEASE MANAGEMENT (O) Disciplines: Therapies 04/07/2024 Resolved on 05/18/2024 - 1 problem intervention scheduled/documen danyelle in this visit OCCUPATIONAL THERAPY EVALUATION ORDER (O) Disciplines: Occupational Therapy Occupational Therapy General Order 04/19/2024 Resolved on 05/18/2024 1 goal linked to scheduled/documen danyelle intervention 1 goal intervention scheduled/documen danyelle in this visit OT COMPREHENSIVE Disciplines: Occupational Therapy 04/19/2024 Resolved on 05/18/2024 5 goals linked to scheduled/documen danyelle interventions Goals Goal Associated Problem Outcome Goal Met? Visit Notes Occupational Therapy Evaluation Description: After assessing the patient and discussing the patient's goals the following were identified. Patient Centered Dog Trainer Goal: to try and get pt to do her own self care and educate pts family on pts care Target date: within 4 weeks OCCUPATIONAL THERAPY EVALUATION ORDER (O) No OT Toileting Description: Dog Trainer Goal: Patient will perform/simulate dry run/complete toileting to include clothing management and hygiene at standing position with recommended DME/tech prn with independence and good understanding of safety/technique. To be met by 05/12/24 OT COMPREHENSIVE Therapy: Goal met Yes OT Dressing Description: Usp Goal: Patient will perform/simulate dry run/demonstrate prn complete total body dressing with recommended adap equip/tech/DME prn with setup and good understanding of safety/technique. To be met by 05/12/24. OT COMPREHENSIVE Therapy: Goal met Yes OT Bathing Description: Usp Goal: Patient will perform/simulate dry run/demonstrate prn total body bathing at shower level while sitting and/or standing with recommended DME prn with minimal assist and good understanding of safety/technique. To be met by 05/12/24. Caregiver will be trained/educated on assisting and encouraging pt to complete total body bathing at shower level while sitting with recommended DME, techniques prn with independence and good understanding of safety/technique. To be met by 05/12/24. OT COMPREHENSIVE Therapy: Goal met Yes OT Transfers Description: terminal press operator goal: Patient will complete chair, toilet and [...] To be met by 05/12/24 OT COMPREHENSIVE Therapy: Goal met Yes OT Home Exercise Program Description: Short Term Goal: Patient and Caregiver will perform B HEP of UE AROM with stand by assist and good understanding of safety/technique. To be met by 05/06/24. Dog Trainer Goal: Patient and Caregiver will perform B HEP of UE AROM with independence and good understanding of safety/technique. To be met by 05/12/24. OT COMPREHENSIVE Therapy: Goal met Yes Interventions Intervention Associated Problem/Goal Status Variance Visit Notes Therapy Depression (O) Description: Assess and monitor for signs and symptoms of depression. Problem:THERAPY DISEASE MANAGEMENT (O) Scheduled OT Evaluation (Order Only) Description: Pt saw her PCP on 04/03/24 and [facility] PT/OT were ordered. Pt reported to this therapist that she fell and hurt her L leg. She reports she did not hurt anything else but in fact she fractured her nose. Pt's daughter recently moved in with her from [place] due to some concerns with pt's memory [...] THERAPY EVALUATION ORDER (O) Goal:Occupational Therapy Evaluation Scheduled documented in this encounter Care Teams Lease Administration Supervisor Relationship Specialty Start Date End Date Orlando Cortez MD [address] [place] [address] PCP - General Family Medicine 04/04/24 documented as of this encounter
--- OUTSIDE RECORDS SUMMARY | 2024-07-15 03:32 | XMS_ITS | Encounter Summary ---
Author Organization [facility] Address [address] [place] [address] Phone Care Team Providers Care Analytic Programmer Name Role Phone Orlando Cortez MD Primary Care Provider [phone] Reason for Visit * Auth/Cert (Routine) Specialty Diagnoses / Procedures Referred By Mecca alfaro Referred To Contact Referral ID Status Reason Start Date Expiration Date Visits Re quested Visits Authorized [id number] 1 1 Encounter Details Date Type Department Care Team (Latest Contact Info) Description 05/12/2024 1:00 PM CDT Home Care Visit [facility] [address] [place] [address] Kanika Orozco OTA PR OT - DISCIPLINE DISCHARGE Social History Tobacco Use [...] Sign Reading Time Taken Comments Blood Pressure 130/60 05/12/2024 1:31 PM CDT Pulse 85 05/12/2024 1:31 PM CDT Temperature 35.8 ??C (96.5 ??F) 05/12/2024 1:31 PM CD T Respiratory Rate 18 05/12/2024 1:31 PM CDT Oxygen Saturation 95% 05/12/2024 1:31 PM CDT Inhaled Oxygen Concentration - - Weight - - Height - - Body Mass Index - - documented in this encounter Plan of Treatment Not on file documented as of this encounter Visit Diagnoses Not on filedocumented in this encounter Home Health Visit - Care Plan Visit Details Visit Type -OT - DISCIPLINE DISCHARGE Discipline -Occupational Therapy Problems Problem Description Start Date Status Goals Interve ntions ALL VITAL SIGN PARAMETERS Disciplines: All Home Care 04/07/2024 Active - 1 problem intervention scheduled/documen danyelle in this visit THERAPY DISEASE MANAGEMENT (O) Disciplines: Therapies 04/07/2024 Active - 1 problem intervention scheduled/documen danyelle in this visit OCCUPATIONAL THERAPY EVALUATION ORDER (O) Disciplines: Occupational Therapy Occupational Therapy General Order 04/19/2024 Active 1 goal linked to scheduled/document ed intervention 2 goal interventions scheduled/documen danyelle in this visit OT COMPREHENSIVE Disciplines: Occupational Therapy 04/19/2024 Active 2 goals linked to scheduled/document ed interventions 2 goal interventions scheduled/documen danyelle in this visit Goals Goal Associated Problem Outcome Goal Met? Visit Notes Occupational Therapy Evaluation Description: After assessing the patient and discussing the patient's goals the following were identified. Patient Centered Licensed Marriage And Family Therapist Goal: to try and get pt to do her own self care and educate pts family on pts care Target date: within 4 weeks OCCUPATIONAL THERAPY EVALUATION ORDER (O) No OT Dressing Description: Long-Term Goal: Patient will perform/simulate dry run/demonstrate prn complete total body dressing with recommended adap equip/tech/DME prn with setup and good understanding of safety/technique. To be met by 05/12/24. OT COMPREHENSIVE No OT Home Exercise Program Description: Short Term Goal: Patient and Caregiver will perform B HEP of UE AROM with stand by assist and good understanding of safety/technique. To be met by 05/06/24. Licensed Marriage And Family Therapist Goal: Patient and Caregiver will perform B HEP of UE AROM with independence and good understanding of safety/technique. To be met by 05/12/24. OT COMPREHENSIVE No Interventions Intervention Associated Problem/Goal [...] control measures. Problem:ALL VITAL SIGN PARAMETERS Completed Therapy Depression (O) Description: Assess and monitor for signs and symptoms of depression. Problem:THERAPY DISEASE MANAGEMENT (O) Completed Patient shows signs of depression no Symptoms reported to physician (, no symptoms). OT Evaluation (Order Only) Description: Pt saw her PCP on 04/03/24 and [facility] PT/OT were ordered. Pt reported to this therapist that she fell and hurt her L leg. She reports she did not hurt anything else but in fact she fractured her nose. Pt's daughter recently moved in with her from [place] due to some concerns with pt's memory [...] ORDER (O) Goal:Occupational Therapy Evaluation Completed OT Discharge Problem:OCCUPATIONAL THERAPY EVALUATION ORDER (O) Goal:Occupational Therapy Evaluation Completed Medication list reviewed and left in home. Medicare notice of discharge signed on RUBBER TRIMMER still active. Discharge Instructions provided to Patient and Caregiver. Response verbalize understanding. OT Dressing Description: Instruct on dressing techniques and safety. ADL equipment as needed. Problem:OT COMPREHENSIVE Goal:OT Dressing Completed Patient performed walk through of dressing for total body with independence and good activity tolerance. Education provided fall prevention. Instruction provided to Patient and Caregiver. Response verbalize understanding. Pt review of safety recommendations previously given to decrease risk of falls when dressing by completing while seated at all times with 100% verbal agreement and understanding. OT Home Exercise Program Description: Instruct on Home Exercise Program. Problem:OT COMPREHENSIVE Goal:OT Home Exercise Program Completed Reviewed current HEP scapular elevation/shoulder rolls, shoulder flex/ext, shoulder abd/add, horizontal abd/add, elbow flex, forearm supination/pronation and wrist flex/ext with focus on improving strength and endurance for increased safety and functional performance in ADL/IADL tasks . Patient to complete 2 times per day, 15-20 repetitions and 1 sets as tolerated. Instruction provided to Patient and Caregiver. Response verbalize understanding and return demonstration. documented in this encounter Care Teams Analytic Programmer Relationship Specialty Start Date End Date Orlando Cortez MD [address] [place] [address] PCP - General Family Medicine 04/04/24 documented as of this encounter
--- OUTSIDE RECORDS SUMMARY | 2024-07-15 03:32 | XMS_ITS | Encounter Summary ---
Author Organization [facility] Address [address] [place] [address] Phone Care Team Providers Care Dispatch Clerk Name Role Phone Orlando Cortez MD Primary Care Provider [phone] Reason for Visit * Auth/Cert (Routine) Specialty Diagnoses / Procedures Referred By Contac t Referred To Contact Referral ID Status Reason Start Date Expiration Date Visits Re quested Visits Authorized [id number] 1 1 Encounter Details Date Type Department Care Team (Late st Contact Info) Description 05/12/2024 [facility] [address] [place] [address] Kanika Orozco, [facility] CASE COMMUNICATION Social History Tobacco Use Types [...] on filedocumented in this encounter Care Teams Dispatch Clerk Relationship Specialty Start Date End Date Orlando Cortez MD [address] [place] [address] PCP - General Family Medicine 04/04/24 documented as of this encounter
--- OUTSIDE RECORDS SUMMARY | 2024-07-15 03:32 | XMS_ITS | Encounter Summary ---
Author Organization [facility] Care Team Providers Care Commercial Print Salesman Name Role Phone Orlando Cortez MD Primary Care Provider [phone] Encounter Details Date Type Department Care Team (Latest Contact Info) Description 05/16/2024 Travel Social History Tobacco Use Types Packs/Day [...] on filedocumented in this encounter Care Teams Commercial Print Salesman Relationship Specialty Start Date End Date Orlando Cortez MD [address] [place] [address] PCP - General Family Medicine 04/04/24 documented as of this encounter
--- OUTSIDE RECORDS SUMMARY | 2024-07-15 03:32 | XMS_ITS | Encounter Summary ---
Author Organization [facility] Address [address] [place] [address] Phone Care Team Providers Care Boiler Testing Technician Name Role Phone Orlando Cortez MD Primary Care Provider [phone] Reason for Visit * Auth/Cert (Routine) Specialty Diagnoses / Procedures Referred By Mecca alfaro Referred To Contact Referral ID Status Reason Start Date Expiration Date Visits Re quested Visits Authorized [id number] 1 1 Encounter Details Date Type Department Care Team (Late st Contact Info) Description 04/17/2024 9:30 AM CDT Home Care Visit [facility] [address] [place] [address] Becky Quinn, PT PT - TILE PROFESSIONAL SUPERVISORY VISIT Social History Tobacco Use Types Packs/Day Years Used Date Smoking Tobacco: Never Assessed Comments Unknown Sex and Gender Information Value Date Recorded Sex Assigned at Not on file Legal Sex Female 8:18 AM CDT Gender Identity Not on file Sexual Orientation Not on file documented as of this encounter Last Filed Vital Signs Vital Sign Reading Time Taken Comments Blood Pressure 112/72 04/17/2024 9:47 AM CDT Pulse 55 04/17/2024 9:47 AM CDT Temperature 36.4 ??C (97.5 ??F) 04/17/2024 9:47 AM CD T Respiratory Rate 16 04/17/2024 9:47 AM CDT Oxygen Saturation 98% 04/17/2024 9:47 AM CDT Inhaled Oxygen Concentration - - Weight - - Height - - Body Mass Index - - documented in this encounter Plan of Treatment Not on file documented as of this encounter Visit Diagnoses Not on filedocumented in this encounter Home Health Visit - Care Plan Visit Details Visit Type -PT - TILE PROFESSIONAL SUPERVI EMILY VISIT Discipline -Physical Therapy Problems Problem Description Start Date Status Goals Interve ntions PT COMPREHENSIVE Disciplines: Physical Therapy 04/07/2024 Active 4 goals linked to scheduled/documente d interventions 4 goal interventions scheduled/document ed in this visit THERAPY DISEASE MANAGEMENT (O) Disciplines: Therapies 04/07/2024 Active - 1 problem intervention scheduled/document ed in this visit Goals Goal Associated Problem Outcome Goal Met? Visit Notes PT Balance Description: Product Marketing Manager Goal: Patient will show improved dynamic standing balance as demonstrated by improved Tinetti score from to 20 in order to lower risk for falls and Improve functional mobility. To be met by 04-28-24. PT COMPREHENSIVE No PT Ambulation Description: Custodial Goal: Patient will ambulate with supervision x 100-200 feet with use of 4 wheel walker, over even surfaces with the following improved gait characteristics no LOB, improvement in walker safety in order to safely ambulate to vehicle for MD appt. To be met by 04-28-24. PT COMPREHENSIVE No PT Transfers Description: Product Marketing Manager Goal: Patient will perform sit<>stand transfers independently with use of a wheeled walker. To be met by 04-28-24. PT COMPREHENSIVE No PT HEP Description: Custodial Goal: Patient and/or caregiver will with min assist with final HEP of strengthening, balance training, conditioning and core strengthening in order to continue making strength gains , improving balance and improving activity tolerance after discharge from home care. To be met by 04-28-24. PT COMPREHENSIVE No Interventions Intervention Associated Problem/Goal Status Variance Visit Notes PT Balance Description: Provide balance training for safety and reduced fall risk. Problem:PT COMPREHENSIVE Goal:PT Balance Completed Pt worked on static and dynamic balance at today's visit. Pt also performed TS EO, TS EC, rhomberg EC, standing on foam, TS on foam w/o UE support. Pt also performed marching on foam with UE at walker x30 ea. Pt tolerated exercises well and needed contact guard assist for added safety. Pt was able to perform exercises well and did not have any LOB with activity. Pt also performed tossing an item with therapist x20 for dynamic balance training with CGA and no LOB noted. Pt was given 5 items to pickle water pump operator off of the floor during walking trial today. Pt needed CGA for added safety with this activity due to impulsivity and performing tasks quickly with poor safety awareness demonstrated. Tasks performed to reduce overall fall risk in the home. She needed frequent verbal cuing keep rollator nearby in case any LOB was present and locking AD when needed. Pt reported Jason of 4/10 after activity and requested to sit and rest. PT Ambulation Description: Provide gait training for increased safety and efficiency. Progress per patient tolerance and safety. Problem:PT COMPREHENSIVE Goal:PT Ambulation Completed Pt ambulated 3 minutes using 4WW with supervision. She ambulated in her home while walking on various surfaces and navigating smaller spaces. Pt reported 1/10 on the Jason scale after ambulation. Pt needed frequent cuing to slow gait speed down and keep rollator close while ambulating and also picking up items. Pt had several instances in which she ran into furniture so cuing was needed to make sure patient is safe and cautious while walking in tight walkways. Questionable follow through with carry-over. PT Transfers Description: Instruct in proper safety and transfer technique. Problem:PT COMPREHENSIVE Goal:PT Transfers Completed Pt peformed STS transfers x4 with supervision throughout visit. Needed cuing to improve eccentric control during sitting from standing position and also cuing to improve rollator placement with transfer. PT HEP Progression Description: Instruct on home exercise program. Progress as tolerated. Problem:PT COMPREHENSIVE Goal:PT HEP Completed Pt completed 5 minutes of LE bike while seated. Pt reported Jason or 1/10 post-activity. Tolerated treatment well. Performed activity to improved LE strength and activty tolerance in order perform activities in a timely and safely manner. Pt daughter was educated on the continuation of HEP and the use/benefits of purchasing bike for continued LE strengthening and improved endurance. Therapy Depression (O) Description: Assess and monitor for signs and symptoms of depression. Problem:THERAPY DISEASE MANAGEMENT (O) Completed Patient shows signs of depression no documented in this encounter Care Teams Boiler Testing Technician Relationship Specialty Start Date End Date Orlando Cortez MD [address] [place] [address] PCP - General Family Medicine 04/04/24 documented as of this encounter
--- OUTSIDE RECORDS SUMMARY | 2024-07-15 03:32 | XMS_ITS | Encounter Summary ---
Author Organization [facility] Care Team Providers Care Finance Insurance Manager Name Role Phone Orlando Cortez MD Primary Care Provider [phone] Encounter Details Date Type Department Care Team (Latest Contact Info) Description 04/19/2024 Travel Social History Tobacco Use Types Packs/Day [...] on filedocumented in this encounter Care Teams Finance Insurance Manager Relationship Specialty Start Date End Date Orlando Cortez MD [address] [place] [address] PCP - General Family Medicine 04/04/24 documented as of this encounter
--- OUTSIDE RECORDS SUMMARY | 2024-07-15 03:32 | XMS_ITS | Encounter Summary ---
Author Organization [facility] Address [address] [place] [address] Phone Care Team Providers Care High School Coordinator Name Role Phone Orlando Cortez MD Primary Care Provider [phone] Reason for Visit * Auth/Cert (Routine) Specialty Diagnoses / Procedures Referred By Mecca alfaro Referred To Contact Referral ID Status Reason Start Date Expiration Date Visits Re quested Visits Authorized [id number] 1 1 Encounter Details Date Type Department Care Team (Late st Contact Info) Description 05/04/2024 11:30 AM CDT Home Care Visit [facility] [address] [place] [address] Lorraine Gutiérrez, CHIP SILO TENDER-SPEECH LANGUAGE PATHOLOGIST [place] CHIP SILO TENDER - INITIAL EVALUATION Social History Tobacco Use [...] Sign Reading Time Taken Comments Blood Pressure 140/78 05/04/2024 11:52 AM CDT Pulse 72 05/04/2024 11:52 AM CDT Temperature 36.4 ??C (97.5 ??F) 05/04/2024 11:52 AM C DT Respiratory Rate 18 05/04/2024 11:52 AM CDT Oxygen Saturation 91% 05/04/2024 11:52 AM CDT Inhaled Oxygen Concentration - - Weight - - Height - - Body Mass Index - - documented in this encounter Plan of Treatment Not on file documented as of this encounter Visit Diagnoses Not on filedocumented in this encounter Home Health Visit - Care Plan Visit Details Visit Type -CHIP SILO TENDER - INITIAL EV ALUATION Discipline -Speech Language Pathology Problems Problem Description Start Date Status Goals Interve ntions THERAPY DISEASE MANAGEMENT (O) Disciplines: Therapies 04/07/2024 Active - 1 problem intervention scheduled/documented in this visit Interventions Intervention Associated Problem/Goal Status Variance Visit Notes Therapy Depression (O) Description: Assess and monitor for signs and symptoms of depression. Problem:THERAPY DISEASE MANAGEMENT (O) Scheduled documented in this encounter Care Teams High School Coordinator Relationship Specialty Start Date End Date Orlando Cortez MD [address] [place] [id number] PCP - General Family Medicine 04/04/24 documented as of this encounter
--- OUTSIDE RECORDS SUMMARY | 2024-07-15 03:32 | XMS_ITS | Encounter Summary ---
Author Organization [facility] Address [address] [place] [address] Phone Care Team Providers Care Painting Trades Worker Name Role Phone Orlando Cortez MD Primary Care Provider [phone] Reason for Visit * Auth/Cert (Routine) Specialty Diagnoses / Procedures Referred By Mecca t Referred To Contact Referral ID Status Reason Start Date Expiration Date Visits Re quested Visits Authorized [id number] 1 1 Encounter Details Date Type Department Care Team (Late st Contact Info) Description 04/28/2024 11:30 AM CDT Home Care Visit [facility] [address] [place] [address] Kanika Orozco OTA [place] OT - HOME VISIT Social History Tobacco [...] Sign Reading Time Taken Comments Blood Pressure 110/70 04/28/2024 12:16 PM CDT Pulse 85 04/28/2024 12:16 PM CDT Temperature 36.2 ??C (97.2 ??F) 04/28/2024 12:16 PM C DT Respiratory Rate 18 04/28/2024 12:16 PM CDT Oxygen Saturation 95% 04/28/2024 12:16 PM CDT Inhaled Oxygen Concentration - - [...] goal intervention scheduled/document ed in this visit OT COMPREHENSIVE Disciplines: Occupational Therapy 04/19/2024 Active 1 goal linked to scheduled/documen danyelle intervention 1 goal intervention scheduled/document ed in this visit Goals Goal Associated Problem Outcome Goal Met? Visit Notes Occupational Therapy Evaluation Description: After assessing the patient and discussing the patient's goals the following were identified. Patient Centered Retirement Goal: to try and get pt to do her own self care and educate pts family on pts care Target date: within 4 weeks OCCUPATIONAL THERAPY EVALUATION ORDER (O) No OT Home Exercise Program Description: Short Term Goal: Patient and Caregiver will perform B HEP of UE AROM with stand by assist and good understanding of safety/technique. To be met by 05/06/24. Sr. Vendor Management Associate Goal: Patient and Caregiver will perform B [...] Pt saw her PCP on 04/03/24 and [facility] PT/OT were ordered. Pt reported to this therapist that she fell and hurt her L leg. She reports she did not hurt anything else but in fact she fractured her nose. Pt's daughter recently moved in with her from [place] due to some concerns with pt's memory [...] ORDER (O) Goal:Occupational Therapy Evaluation Completed OT Home Exercise Program Description: Instruct on Home Exercise Program. Problem:OT COMPREHENSIVE Goal:OT Home Exercise Program Completed Issued handout for UE ROM and UE strengthening and Educated patient on proper technique, benefit of exercise, hand placement and pacing. Patient to complete 2 times per day, 15-20 repetitions and 1 sets as tolerated. Instruction provided to Patient and Caregiver. Response verbalize understanding, return demonstration, additional education required, ongoing and reinforcement needed for compliance. Pt issued BUE HEP with handout and visual demonstration for technique of scapular elevation/shoulder rolls, shoulder flex/ext, shoulder abd/add, horizontal abd/add, elbow flex, forearm supination/pronation and wrist flex/ext with focus on improving strength and endurance for increased safety and functional performance in ADL/IADL tasks. Pt completed 1x15 reps with good tolerance and understanding of technique following demonstration and using handout for reference. Pt recommendations to increase reps daily as tolerated in order to continue to increase strength each day with good verbal understanding. documented in this encounter Care Teams Painting Trades Worker Relationship Specialty Start Date End Date Orlando Cortez MD [address] [place] [address] PCP - General Family Medicine 04/04/24 documented as of this encounter
--- OUTSIDE RECORDS SUMMARY | 2024-07-15 03:32 | XMS_ITS | Encounter Summary ---
Author Organization [email or web address] Care Team Providers Care Brim Plater Name Role Phone Orlando Cortez MD Primary Care Provider [phone] Encounter Details Date Type Department Care Team (Latest Contact Info) Description 04/10/2024 Travel Social History Tobacco Use Types Packs/Day [...] on filedocumented in this encounter Care Teams Brim Plater Relationship Specialty Start Date End Date Orlando Cortez MD [address] [place] [address] PCP - General Family Medicine 04/04/24 documented as of this encounter
--- OUTSIDE RECORDS SUMMARY | 2024-07-15 03:32 | XMS_ITS | Encounter Summary ---
Author Organization [facility] Address [address] [place] [address] Phone Care Team Providers Care Welder Machine Operator Name Role Phone Orlando Cortez MD Primary Care Provider [phone] Encounter Details Date Type Department Care Team (Late st Contact Info) Description 04/05/2024 [facility] [address] [place] [address] Michelle Clemens, PT [place] TELEPHONE ENCOUNTER Social History Tobacco Use Types [...] on filedocumented in this encounter Care Teams Welder Machine Operator Relationship Specialty Start Date End Date Orlando Cortez MD [address] [place] [address] PCP - General Family Medicine 04/04/24 documented as of this encounter
--- OUTSIDE RECORDS SUMMARY | 2024-07-15 03:32 | XMS_ITS | Encounter Summary ---
Author Organization [facility] Address [address] [place] [address] Phone Care Team Providers Care Front Office Assistant Name Role Phone Orlando Cortez MD Primary Care Provider [phone] Reason for Visit * Auth/Cert (Routine) Specialty Diagnoses / Procedures Referred By Mecca alfaro Referred To Contact Referral ID Status Reason Start Date Expiration Date Visits Re quested Visits Authorized [id number] 1 1 Encounter Details Date Type Department Care Team (Late st Contact Info) Description 04/07/2024 9:30 AM CDT Home Care Visit [facility] [address] [place] [address] Becky Quinn, PT PT - [facility] START OF CARE Social History Tobacco Use Types Packs/Day Years Used Date Smoking Tobacco: Never Assessed Comments Unknown Sex and Gender Information Value Date Recorded Sex Assigned at Not on file Legal Sex Female 8:18 AM CDT Gender Identity Not on file Sexual Orientation Not on file documented as of this encounter Last Filed Vital Signs Vital Sign Reading Time Taken Comments Blood Pressure 132/70 04/07/2024 9:59 AM CDT Pulse 68 04/07/2024 9:59 AM CDT Temperature 36.6 ??C (97.9 ??F) 04/07/2024 9:59 AM CD T Respiratory Rate 16 04/07/2024 9:59 AM CDT Oxygen Saturation 96% 04/07/2024 9:59 AM CDT Inhaled Oxygen Concentration - - Weight 83.9 kg (185 lb) 04/07/2024 9:59 AM CDT Height 180.3 cm (5' 11) 04/07/2024 9:59 AM CDT Body Mass Index 25.8 04/07/2024 9:59 AM CDT documented in this encounter Plan of Treatment Not on file documented as of this encounter Visit Diagnoses Not on filedocumented in this encounter Home Health Visit - Care Plan Visit Details Visit Type -PT - [facility] START OF CARE Discipline -Physical Therapy Problems Problem Description Start [...] no documented in this encounter Care Teams Front Office Assistant Relationship Specialty Start Date End Date Orlando Cortez MD [address] [place] [address] PCP - General Family Medicine 04/04/24 documented as of this encounter
--- OUTSIDE RECORDS SUMMARY | 2024-07-15 03:32 | XMS_ITS | Encounter Summary ---
Author Organization [facility] Address [address] [place] [address] Phone Care Team Providers Care Banana Ripening Room Supervisor Name Role Phone Orlando Cortez MD Primary Care Provider [phone] Encounter Details Date Type Department Care Team (Late st Contact Info) Description 04/07/2024 [facility] [address] [place] [address] Social History Tobacco Use Types Packs/Day Years [...] on filedocumented in this encounter Care Teams Banana Ripening Room Supervisor Relationship Specialty Start Date End Date Orlando Cortez MD [address] [place] [address] PCP - General Family Medicine 04/04/24 documented as of this encounter
== END 2024-07-14 19:05 | disposition home or self-care (01) | DRG 310 ==
LOC: ANHED 07-08 06:33 → ANHIMU 07-08 07:12 → ANH3MEDSUR 07-11 22:09
PROVIDERS: Internal Medicine; Internal Medicine Cardiovascular Disease; Internal Medicine Nephrology; Physician Assistant; Admitting Provider Internal Medicine; Emergency Provider Emergency Medicine; PCP Family Medicine; Visit Provider General Practice
DX: I48.91 Unspecified atrial fibrillation (principal); I10 Essential (primary) hypertension; I95.9 Hypotension, unspecified; E78.5 Hyperlipidemia, unspecified; M19.90 Unspecified osteoarthritis, unspecified site; R01.1 Cardiac murmur, unspecified; F03.90 Unspecified dementia, unspecified severity, without behavioral disturbance, psychotic disturbance, mood disturbance, and anxiety; Z20.822 Contact with and (suspected) exposure to COVID-19; Z87.891 Personal history of nicotine dependence; Z79.82 Long term (current) use of aspirin
CPT/HCPCS: 36415; 71045; 73030; 80048; 80053; 81001; 82550; 82570; 83605; 83690; 83735; 83880; 84145; 84156; 84300; 84443; 84484; 84540; 85025; 85610; 85730; 85999; 87040; 87086; 87637; 93005; 96366; 96372; 96374; 96375; 97161; 97165; 99285; A9270; C8929; G0378; J1160; J1650; J1940; J2919; J7030; J7040; J7050; Q9957